=== PATIENT | female | born 1960 | race Caucasian/White ===

== ENCOUNTER → 2024-02-16 11:00 | Outpatient (REF) | payer OTHER, SELFPAY | LOC: WDC 11:00 | PROVIDERS: ATTENDING PHYSICIAN Physician Assistant | DX: Z12.31 Encounter for screening mammogram for malignant neoplasm of breast (principal) | CPT/HCPCS: 77063; 77067 ==

== ENCOUNTER → 2024-03-04 09:45 | Outpatient (REF) | payer OTHER, SELFPAY | LOC: WDC 09:45 | PROVIDERS: ATTENDING PHYSICIAN Physician Assistant | DX: R92.8 Other abnormal and inconclusive findings on diagnostic imaging of breast (principal) | CPT/HCPCS: 76642 ==

== ENCOUNTER → 2024-03-08 08:04 | Outpatient (REF) | payer OTHER, SELFPAY ==
--- NOTE | 2024-03-08 15:03 | OID.BR.INTR ---
MAILED Breast Navigator - Initial
- -
Date of Contact: 03/08/24
Met with patient. Patient given written information on navigator services available at [facility]. Will follow up as needed per protocol.
== END ==
LOC: WDC 08:04
PROVIDERS: ATTENDING PHYSICIAN Physician Assistant
DX: N63.14 Unspecified lump in the right breast, lower inner quadrant (principal)
CPT/HCPCS: 88305; 19083; 88341; 88342; 88360; A4648

== ENCOUNTER → 2024-04-11 08:59 | Outpatient (REF) | payer OTHER, SELFPAY | LOC: WDC 08:59 | PROVIDERS: ATTENDING PHYSICIAN Surgery | DX: C50.411 Malignant neoplasm of upper-outer quadrant of right female breast (principal) | CPT/HCPCS: 19285; 38792; 76942; A4648; A9541 ==

== ENCOUNTER → 2024-04-12 07:51 | Outpatient (REF) | payer OTHER, SELFPAY | LOC: WDC 07:51 | PROVIDERS: ATTENDING PHYSICIAN Surgery | DX: C50.411 Malignant neoplasm of upper-outer quadrant of right female breast (principal) | CPT/HCPCS: 88305; 88307; 88332; 76098; 88331; 88342 ==

== ENCOUNTER → 2024-05-18 07:28 | Outpatient (REF) | payer OTHER, SELFPAY | LOC: REG 07:28 | PROVIDERS: ATTENDING PHYSICIAN Internal Medicine Hematology & Oncology; FAMILY PHYSICIAN Family Medicine | DX: D75.1 Secondary polycythemia (principal); C50.311 Malignant neoplasm of lower-inner quadrant of right female breast; E66.812 Obesity, class 2; Z68.35 Body mass index [BMI] 35.0-35.9, adult | CPT/HCPCS: 71046; 93306 ==

== ENCOUNTER → 2024-05-26 12:04 | Outpatient (REF) | payer OTHER, SELFPAY ==
[2024-05-26 12:36] VITALS: BP 145/78; BP_SYST 78
[2024-05-26 14:09] VITALS: BP 116/72
== END ==
LOC: RADI 12:04
PROVIDERS: ATTENDING PHYSICIAN Internal Medicine Hematology & Oncology; FAMILY PHYSICIAN Family Medicine
DX: C50.311 Malignant neoplasm of lower-inner quadrant of right female breast (principal); D75.1 Secondary polycythemia
CPT/HCPCS: 36561; 76937; 77001; 99152; 99153; C1788

== ENCOUNTER → 2024-06-03 15:44 | Outpatient (REF) | payer OTHER, SELFPAY ==
[2024-06-03 18:10] LABS: Hematocrit 43.9 % (37.0-47.0); Hemoglobin 15.2 g/dL (12.0-16.0); Mean Corp Hgb Conc. 34.6 g/dL (33.0-37.0); Mean Corpuscular Hgb 31.3 pg (27.0-31.0); Mean Corpuscular Volume 90.5 fL (81.0-99.0); Mean Platelet Volume 11.8 fL (7.4-10.4); Platelet Count 152 10^3/uL (130-400); Red Blood Cell Count 4.85 10^6/uL (4.20-5.40); Red Cell Dist. Width 12.1 % (11.5-14.5); White Blood Cell Count 17.7 10^3/uL (4.8-10.8)
[2024-06-03 18:17] LABS: ALT (SGPT) 42 U/L (0-35); AST (SGOT) 26 U/L (14-36); Albumin 3.4 g/dl (3.5-5.0); Alkaline Phosphatase 109 U/L (38-126); Blood Urea Nitrogen 10 mg/dl (7-17); Calcium 9.2 mg/dl (8.4-10.2); Carbon Dioxide 26 mmol/L (22-30); Chloride 99 mmol/L (98-107); Glucose 100 mg/dl (70-99); HDL Cholesterol 39 mg/dl; LDL Cholesterol, Calculated 47 mg/dl; Potassium 3.8 mmol/L (3.5-5.1); Sodium 134 mmol/L (135-145); Total Bilirubin 0.6 mg/dl (0.2-1.3); Total Cholesterol 107 mg/dl (50-199); Total Protein 5.8 g/dl (6.3-8.2); Triglyceride 108 mg/dl (10-149); Very Low Density Lipoprotein 21 mg/dl (0-30); eGFR > 60.00
[2024-06-03 18:35] LABS: Free T4 2.38 ng/dl (0.78-2.19)
[2024-06-03 18:48] LABS: TSH 4.64 uIU/ml (0.47-4.68)
[2024-06-03 18:58] LABS: Absolute Neutrophils -Man Diff 10.2 10^3/uL (1.4-6.5); Atypical Lymphocytes 2 %; Band Neutrophils 6 % (0-3); Lymphocytes 19 % (20-51); Monocytes 21 % (2-9); Normal RBC Morphology Yes; Platelets Checked Yes; Segmented Neutrophils 52 % (42-75); Total Cells Counted 100
[2024-06-04 13:54] LABS: Glycohemoglobin (HgbA1c) 5.9 % (4.0-5.6)
== END ==
LOC: REG 15:44
PROVIDERS: ATTENDING PHYSICIAN Physician Assistant
DX: Z01.419 Encounter for gynecological examination (general) (routine) without abnormal findings (principal); Z91.030 Bee allergy status; E03.8 Other specified hypothyroidism; I34.0 Nonrheumatic mitral (valve) insufficiency; F41.9 Anxiety disorder, unspecified; I10 Essential (primary) hypertension; E66.09 Other obesity due to excess calories; Z68.33 Body mass index [BMI] 33.0-33.9, adult; I47.10 Supraventricular tachycardia, unspecified; E78.00 Pure hypercholesterolemia, unspecified; I47.19 Other supraventricular tachycardia; Z78.0 Asymptomatic menopausal state; R73.9 Hyperglycemia, unspecified
CPT/HCPCS: 36415; 80053; 80061; 83036; 84439; 84443; 85025

== ENCOUNTER → 2024-06-07 16:31 | Outpatient (REF) | payer OTHER, SELFPAY | LOC: RAD 16:31 | PROVIDERS: ATTENDING PHYSICIAN Internal Medicine Hematology & Oncology; FAMILY PHYSICIAN Physician Assistant | DX: D75.1 Secondary polycythemia (principal); C50.311 Malignant neoplasm of lower-inner quadrant of right female breast; E66.812 Obesity, class 2; Z68.35 Body mass index [BMI] 35.0-35.9, adult | CPT/HCPCS: 71046 ==

== ENCOUNTER → 2024-06-15 11:45 | Outpatient (REF) | payer OTHER, SELFPAY ==
[2024-06-15 12:33] LABS: % Basophils 1.5 % (0-2); % Eosinophils 2.5 % (0-6); % Immature Granulocytes 0.8 % (0-0.5); % Lymphocytes 29.1 % (20.5-51.1); % Monocytes 12.4 % (1.7-9.3); % Neutrophils 53.7 % (42.2-75.2); Absolute Basophils 0.1 10^3/uL (0-0.2); Absolute Eosinophils 0.2 10^3/uL (0-0.7); Absolute Immature Granulocytes 0.1 10^3/uL (0-0.05); Absolute Lymphocytes 2.5 10^3/uL (1.2-3.4); Absolute Monocytes 1.1 10^3/uL (0.1-0.6); Absolute Neutrophils 4.7 10^3/uL (1.4-6.5); Hematocrit 40.9 % (37.0-47.0); Hemoglobin 13.8 g/dL (12.0-16.0); Mean Corp Hgb Conc. 33.7 g/dL (33.0-37.0); Mean Corpuscular Hgb 31.7 pg (27.0-31.0); Mean Corpuscular Volume 93.8 fL (81.0-99.0); Mean Platelet Volume 10.4 fL (7.4-10.4); Nucleated Red Blood Cells % 0 %; Platelet Count 326 10^3/uL (130-400); Red Blood Cell Count 4.36 10^6/uL (4.20-5.40); Red Cell Dist. Width 13.2 % (11.5-14.5); White Blood Cell Count 8.7 10^3/uL (4.8-10.8)
[2024-06-15 13:04] LABS: ALT (SGPT) 37 U/L (0-35); AST (SGOT) 26 U/L (14-36); Albumin 3.8 g/dl (3.5-5.0); Alkaline Phosphatase 95 U/L (38-126); Blood Urea Nitrogen 11 mg/dl (7-17); Calcium 9.3 mg/dl (8.4-10.2); Carbon Dioxide 26 mmol/L (22-30); Chloride 106 mmol/L (98-107); Glucose 96 mg/dl (70-99); Potassium 4.6 mmol/L (3.5-5.1); Sodium 140 mmol/L (135-145); Total Bilirubin 0.8 mg/dl (0.2-1.3); Total Protein 6.2 g/dl (6.3-8.2); eGFR > 60.00
== END ==
LOC: REG 11:45
PROVIDERS: ATTENDING PHYSICIAN Internal Medicine Hematology & Oncology
DX: D75.1 Secondary polycythemia (principal); C50.311 Malignant neoplasm of lower-inner quadrant of right female breast; E66.812 Obesity, class 2; Z68.35 Body mass index [BMI] 35.0-35.9, adult; R05.1 Acute cough
CPT/HCPCS: 36415; 80053; 85025

== ENCOUNTER 2024-06-16 05:52 | Outpatient (RCR) | payer OTHER, SELFPAY | END 2024-06-16 23:59 | disposition home or self-care (01) | LOC: RPT 05:52 | PROVIDERS: ATTENDING PHYSICIAN Internal Medicine Hematology & Oncology; FAMILY PHYSICIAN Family Medicine | DX: C50.311 Malignant neoplasm of lower-inner quadrant of right female breast (principal); D75.1 Secondary polycythemia; R53.0 Neoplastic (malignant) related fatigue; M62.81 Muscle weakness (generalized); Z73.6 Limitation of activities due to disability | CPT/HCPCS: 97163; 97530 ==

== ENCOUNTER 2024-07-06 11:11 | Outpatient (RCR) | payer OTHER, SELFPAY | END 2024-07-06 23:59 | disposition home or self-care (01) | LOC: RPT 11:11 | PROVIDERS: ATTENDING PHYSICIAN Internal Medicine Hematology & Oncology; FAMILY PHYSICIAN Family Medicine | DX: C50.311 Malignant neoplasm of lower-inner quadrant of right female breast (principal); D75.1 Secondary polycythemia; R53.0 Neoplastic (malignant) related fatigue; M62.81 Muscle weakness (generalized); Z73.6 Limitation of activities due to disability | CPT/HCPCS: 97112; 97140; 97530 ==

== ENCOUNTER → 2024-07-06 12:20 | Outpatient (REF) | payer OTHER, SELFPAY ==
[2024-07-06 13:38] LABS: % Basophils 0.7 % (0-2); % Eosinophils 0.7 % (0-6); % Immature Granulocytes 1.4 % (0-0.5); % Lymphocytes 38.7 % (20.5-51.1); % Monocytes 12.2 % (1.7-9.3); % Neutrophils 46.3 % (42.2-75.2); Absolute Basophils 0.1 10^3/uL (0-0.2); Absolute Eosinophils 0.1 10^3/uL (0-0.7); Absolute Immature Granulocytes 0.1 10^3/uL (0-0.05); Absolute Lymphocytes 3.4 10^3/uL (1.2-3.4); Absolute Monocytes 1.1 10^3/uL (0.1-0.6); Hematocrit 37.4 % (37.0-47.0); Hemoglobin 12.5 g/dL (12.0-16.0); Mean Corp Hgb Conc. 33.4 g/dL (33.0-37.0); Mean Corpuscular Hgb 32.3 pg (27.0-31.0); Mean Corpuscular Volume 96.6 fL (81.0-99.0); Mean Platelet Volume 10.3 fL (7.4-10.4); Nucleated Red Blood Cells % 0 %; Platelet Count 249 10^3/uL (130-400); Red Blood Cell Count 3.87 10^6/uL (4.20-5.40); Red Cell Dist. Width 14.8 % (11.5-14.5); White Blood Cell Count 8.7 10^3/uL (4.8-10.8)
[2024-07-06 14:06] LABS: ALT (SGPT) 34 U/L (0-35); AST (SGOT) 28 U/L (14-36); Albumin 3.2 g/dl (3.5-5.0); Alkaline Phosphatase 92 U/L (38-126); Blood Urea Nitrogen 7 mg/dl (7-17); Calcium 8.9 mg/dl (8.4-10.2); Carbon Dioxide 28 mmol/L (22-30); Chloride 108 mmol/L (98-107); Glucose 84 mg/dl (70-99); Potassium 4.1 mmol/L (3.5-5.1); Sodium 141 mmol/L (135-145); Total Bilirubin 0.3 mg/dl (0.2-1.3); Total Protein 5.7 g/dl (6.3-8.2); eGFR > 60.00
== END ==
LOC: RAD 12:20
PROVIDERS: ATTENDING PHYSICIAN Internal Medicine Hematology & Oncology; FAMILY PHYSICIAN Family Medicine
DX: D75.1 Secondary polycythemia (principal); C50.511 Malignant neoplasm of lower-outer quadrant of right female breast; E66.812 Obesity, class 2; Z68.35 Body mass index [BMI] 35.0-35.9, adult
CPT/HCPCS: 36415; 80053; 85025

== ENCOUNTER 2024-07-27 10:51 | Outpatient (RCR) | payer OTHER, SELFPAY | END 2024-07-27 23:59 | disposition home or self-care (01) | LOC: RPT 10:51 | PROVIDERS: ATTENDING PHYSICIAN Internal Medicine Hematology & Oncology; FAMILY PHYSICIAN Family Medicine | DX: C50.311 Malignant neoplasm of lower-inner quadrant of right female breast (principal); D75.1 Secondary polycythemia; R53.0 Neoplastic (malignant) related fatigue; M62.81 Muscle weakness (generalized); Z73.6 Limitation of activities due to disability | CPT/HCPCS: 97110; 97530 ==

== ENCOUNTER → 2024-07-27 12:24 | Outpatient (REF) | payer OTHER, SELFPAY ==
[2024-07-27 13:14] LABS: % Basophils 0.8 % (0-2); % Eosinophils 0.4 % (0-6); % Monocytes 11.3 % (1.7-9.3); % Neutrophils 56.5 % (42.2-75.2); Absolute Basophils 0.1 10^3/uL (0-0.2); Absolute Immature Granulocytes 0.1 10^3/uL (0-0.05); Absolute Lymphocytes 2.8 10^3/uL (1.2-3.4); Absolute Monocytes 1.1 10^3/uL (0.1-0.6); Absolute Neutrophils 5.3 10^3/uL (1.4-6.5); Hematocrit 35.2 % (37.0-47.0); Hemoglobin 11.7 g/dL (12.0-16.0); Mean Corp Hgb Conc. 33.2 g/dL (33.0-37.0); Mean Corpuscular Hgb 32.9 pg (27.0-31.0); Mean Corpuscular Volume 98.9 fL (81.0-99.0); Mean Platelet Volume 9.2 fL (7.4-10.4); Nucleated Red Blood Cells % 0 %; Platelet Count 306 10^3/uL (130-400); Red Blood Cell Count 3.56 10^6/uL (4.20-5.40); Red Cell Dist. Width 16.1 % (11.5-14.5); White Blood Cell Count 9.3 10^3/uL (4.8-10.8)
[2024-07-27 14:27] LABS: ALT (SGPT) 23 U/L (0-35); AST (SGOT) 25 U/L (14-36); Albumin 3.2 g/dl (3.5-5.0); Alkaline Phosphatase 90 U/L (38-126); Blood Urea Nitrogen 6 mg/dl (7-17); Calcium 8.8 mg/dl (8.4-10.2); Carbon Dioxide 26 mmol/L (22-30); Chloride 109 mmol/L (98-107); Glucose 96 mg/dl (70-99); Sodium 142 mmol/L (135-145); Total Bilirubin 0.4 mg/dl (0.2-1.3); eGFR > 60.00
== END ==
LOC: REG 12:24
PROVIDERS: ATTENDING PHYSICIAN Internal Medicine Hematology & Oncology; FAMILY PHYSICIAN Family Medicine
DX: D75.1 Secondary polycythemia (principal); C50.311 Malignant neoplasm of lower-inner quadrant of right female breast; Z68.35 Body mass index [BMI] 35.0-35.9, adult
CPT/HCPCS: 36415; 80053; 85025

== ENCOUNTER 2024-08-02 23:02 | Inpatient (IN) | payer OTHER, SELFPAY ==
[2024-08-02] VITALS (13 sets, daily range): BP systolic 95–145; BP diastolic 64–97; BMI 28.3
--- NOTE | 2024-08-02 20:15 | ED.GENMED ---
History of Present Illness
General
Chief Complaint: Weakness
Source: patient, records, spouse and ambulance crew
Exam Limitations: clinical condition
Time Seen by Provider: 08/02/24 20:13
Nursing documentation reviewed up to this point in time: agreed with
History of Present Illness
History of Present Illness:
64-year-old female with past medical history of atrial tachycardia, breast cancer currently on chemotherapy who presents to the emergency department with her for evaluation of change in mental status. Patient received chemotherapy last
week; she follows with [facility]. According to her , for the past few days patient has been more lethargic and has had very poor p.o. intake. Today was very confused and essentially not talking at all. EMS was called to bring
her to the hospital. Per EMS on their arrival she was markedly tachycardic and febrile. Normotensive. She was given IV fluids which improved heart rate slightly. Per she has had mild cough and has been dealing with diarrhea recently
despite her poor p.o. intake.
Past History
Past History
ED Past Medical History: Other (n/a)
Social History
Personal:
Living: with family
Review of Systems
Review of Systems
Unable to obtain full review of systems at this time due to: other (Mental status changes)
All Other Systems: Not applicable
Phy Exam
Physical Exam
Physical Exam:
General: Awake, alert, eyes open, patient was able waved at me but not giving any verbal response and not consistently following commands
Head: Normocephalic, atraumatic
Eyes: Conjunctiva normal, pupils equal round and reactive to light bilaterally
Throat: Airway intact, dry mucous membranes
Neck: Trachea midline, supple without meningismus, no JVD
Lungs: Breath sounds are diminished in lung bases; mild tachypnea, no hypoxia, no respiratory distress
Heart: Tachycardia with irregular rhythm, no murmurs, gallops, or rubs appreciated
Abd: Soft, non distended, no apparent tenderness, no mass appreciated
Neuro: Seems globally confused but no focal deficits noted within the limits of exam�patient not consistently following commands
Skin: no rash noted; skin warm to the touch and somewhat diaphoretic
Extremities: No edema in extremities, equal pulses in all extremities
Scores
Heart Failure Risk
Heart Failure Risk Score: Not Applicable
Heart Score for Chest Pain Patients
STEMI patient?: Not applicable
Withdrawal Assessment of Alcohol
Withdrawal Assessment Completed?: Not applicable
Sepsis
Sepsis Screening
Sepsis Assessment: Sepsis
Sepsis Screen
Sepsis Screen: Sepsis
Date: 08/02/24
Time: 21:38
Course
Orders/Labs/Results
Orders:
Orders
08/02/24 20:13
Acetaminophen 1000MG/100Ml [Ofirmev] 1,000 mg in 100 ml IV ONCE
Acetaminophen IV Indication:: ED Narcotic Naive Pt-ONCE
08/02/24 20:14
CT Head W/o Iv Contrast Urgent
Comment:
Reason For Exam: change in mentation
0.9% Sodium Chloride 1000 ml [Nss] 1,000 ml IV BOLUS
CR Chest Portable - 1 View Urgent
Comment:
Reason For Exam: fever
Reason Study Needs to be Portable: Unable to Transport
08/02/24 20:15
Electrocardiogram (*1) Urgent
Reason for Study: Tachycardia
EKG- Treatment ONCE
08/02/24 20:27
CPK [Creatine Phosphokinase] Urgent
Complete Blood Count/With Diff Urgent
Comprehensive Metabolic Panel Urgent
Lipase Urgent
Magnesium Urgent
Comment: ADD ON
PTT Urgent
Prothrombin Time Urgent
TSH Reflex To Free T4 Urgent
Blood Culture Q30M
CLIFFORD Source: Blood/Venous
Specimen Description:
08/02/24 20:28
Lactate Level [Lactic Acid] Urgent
Urinalysis Reflex To Culture Urgent
Date Specimen was Collected: 08/02/24
Time Specimen was Collected: 20:17
Urine Microscopic Reflex Cult Urgent
Urine Culture Urgent
CLIFFORD Source: U
Specimen Description:
Date Specimen was Collected: 08/02/24
Time Specimen was Collected: 20:17
08/02/24 20:31
Blood Culture Urgent
CLIFFORD Source: Blood/Venous
Specimen Description:
Comment: FROM PORT
08/02/24 20:39
COVID-19 Antigen Urgent
Source: Nasal Swab
Influenza A+B Rapid Molecular Urgent
CLIFFORD Source: Nasal Swab
Specimen Description:
08/02/24 20:50
0.9% Sodium Chloride 1000 ml [Nss] 1,000 ml IV BOLUS
08/02/24 20:51
Add On- LAB Urgent
Tests Added?: Magnesium level
Blood Culture Q30M
CLIFFORD Source: Blood/Venous
Specimen Description:
08/02/24 21:07
Metoprolol [Lopressor] 5 mg IV NOW STA
08/02/24 21:14
Vancomycin [Vancocin] 2,000 mg 0.9% Sodium Chloride 500 ml [Nss] 500 ml IV NOW
08/02/24 21:16
Meropenem [Merrem] 2,000 mg 0.9% Sodium Chloride 100 ml [Nss] 60 ml IV NOW
08/02/24 21:17
Potassium Chloride [KCl] 20 meq 0.9% Sodium Chloride 250 ml [Nss] 250 ml IV NOW
08/02/24 21:27
Amiodarone [Cordarone] 900 mg DEXTROSE 5% PVC-free BAG [D5W PVC-free BAG] 500 ml IV NOW
Initial Dose in mg/min:: 1
Duration of initial dose (hours):: 6
Subsequent dose in mg/min:: 0.5
Duration of subsequent dose (hours):: 18
Maximum dose in mg/min:: 1
Hold and notify provider if:: Heart rate < 60 BPM or SBP < 90 mmHg or MAP < 60 mmHg
08/02/24 21:32
Heparin 4,000 units IV NOW STA
Pharmacy Request to Place See Dose Instructions PO NOW STA
Discontinue all Active Warfarin orders?: Yes
08/02/24 21:34
Amiodarone [Cordarone] 150 mg Dextrose 5%/Water 100 ml [D5w] 100 ml IV NOW
08/02/24 21:35
Magnesium Sulfate 2 Gram/50 ml [Magnesium Sulfate] 2 gram in 50 ml IV NOW
Nursing to Place Non Medication Order As Directed
Physician Order: PTT 6 hours after initial start of Heparin infusion
08/02/24 21:45
Heparin 87611 Units/250 ml 25,000 units in 250 ml IV PER PROTOCOL
Weight to be used for heparin protocol in kilograms (kg):: 77.2
Protocol:: Cardiac Tx/Acute Coronary
PTT Goal Range to be used:: PTT 73 to 111 seconds
Order type:: Initial
INITIAL Infusion Dose (UNITS/KG/hr) & then follow protocol:: 15 units/kg/hr
Infusion Dose in UNITS/hr & then follow protocol (UNITS/hr):: 1,150
INFUSION RATE in mL/hr & then follow protocol (mL/hr):: 11.5
PTT less than or equal to 64 seconds:: Increase rate by 200 units/hr (+ 2 mL/hr)
PTT 64.1 to 72.9 seconds:: Increase rate by 100 units/hr (+ 1 mL/hr)
PTT 73 to 111 seconds:: Target Range. No change in rate.
PTT 111.1 to 130.9 seconds:: Decrease rate by 100 units/hr (- 1 mL/hr)
PTT 131 to 199.9 seconds:: HOLD for 1 hr. Then decrease rate by 200 units/hr (- 2 mL/hr)
PTT greater than or equal to 200 seconds:: HOLD for 2 hrs & Notify Provider. Then decrease by 200 units/hr (-
2 mL/hr)
Lab follow-up:: Each change, PTT q6h until 2 consecutive are therapeutic. Then PTT
daily.
08/02/24 22:[address] See Dose Instructions IV DIRECTED
Abnormal Lab Results
08/02/24 08/02/24
20:27 20:28
WBC 3.8 L 10^3/uL
(4.8-10.8)
RBC 3.64 L 10^6/uL
(4.20-5.40)
Hct 33.9 L %
(37.0-47.0)
MCH 33.0 H pg
(27.0-31.0)
RDW 15.8 H %
(11.5-14.5)
Plt Count 71 L D 10^3/uL
(130-400)
MPV 10.6 H fL
(7.4-10.4)
Abs Immat Gran (auto) 0.5 H 10^3/uL
(0-0.05)
Absolute Lymphs (auto) 0.4 L 10^3/uL
(1.2-3.4)
Immature Gran % 12.3 H %
(0-0.5)
Lymphocytes % 9.4 L %
(20.5-51.1)
Monocytes % 1.6 L %
(1.7-9.3)
PT 15.3 H Sec
(11.4-14.6)
APTT 35.5 H Sec
(23.4-35.0)
Sodium 126 L mmol/L
(135-145)
Potassium 3.2 L mmol/L
(3.5-5.1)
Chloride 96 L mmol/L
(98-107)
Glucose 158 H mg/dl
(70-99)
Lactic Acid 2.1 H mmol/L
(0.7-2.0)
Calcium 7.8 L mg/dl
(8.4-10.2)
Magnesium 1.4 L mg/dl
(1.6-2.3)
Creatine Kinase 144 H U/L
(30-135)
Total Protein 5.7 L g/dl
(6.3-8.2)
Albumin 3.0 L g/dl
(3.5-5.0)
Urine Ketones 3+ A
(Negative)
Ur Occult Blood Reflex 4+ A
(Negative)
Urine RBC 3-6 A /HPF
(0-2)
Urine Bacteria (Reflex) Many A
(Negative)
Urine Albumin (Reflex) 3+ A
(Neg - Trace)
08/02/24 20:27
08/02/24 20:27
Vital Signs
Initial and Last Documented VS:
Initial Vital Signs
Temp Pulse Resp BP Pulse Ox
38.1 C H 166 20 145/97 95
08/02/24 20:11 08/02/24 20:11 08/02/24 20:11 08/02/24 20:11 08/02/24 20:11
Last Documented Vital Signs
Temp Pulse Resp BP Pulse Ox
38.1 C H 136 25 110/89 97
08/02/24 20:11 08/02/24 21:30 08/02/24 21:30 08/02/24 21:30 08/02/24 21:30
MDM/Problems Addressed
Differential Diagnosis Includes:
UTI, pneumonia, viral infection, neutropenic fever, bacteremia
MDM/Problems Addressed:
64-year-old female who is on chemotherapy for breast cancer presents for evaluation of change in mental status�noted to be febrile and markedly tachycardic by EMS. She arrives tachycardic but normotensive; she is febrile. Mildly tachypneic but not
hypoxic. Physical exam as above. Will establish large-bore IV access and labs including CBC and a CMP, coags and lactate and blood cultures, thyroid studies, CPK. Check urinalysis, viral swabs. Will check chest x-ray. Check CT head. Will
provide fluids, Tylenol. Empiric broad-spectrum antibiotics once cultures are drawn. Will need an EKG for tachycardia. Monitor closely and reassess after the above. Anticipate admission.
Initial labs reviewed: CBC shows WBC 3.8; CMP shows hyponatremia suspect hypovolemic based on her exam. Hypokalemia to 3.2 will replete IV. Magnesium 1.4 will replete. Lactate elevated at 2.1. CT head negative for any acute pathology. Chest
x-ray reviewed by me shows bibasilar opacities and patient was noted to be mildly hypoxic requiring supplemental oxygen�at this point suspect pneumonia. She was given broad-spectrum antibiotics and is covered for this. Her urinalysis is still
pending. She does remain tachycardic will reassess after fluids�blood pressures somewhat soft and suspect much of tachycardia is from fever and hypovolemia.
After fluids and Tylenol patient remains markedly tachycardic. Will give Lopressor and reassess.
Patient remains tachycardic despite Lopressor, fluids, antipyretics. Case discussed with cardiology as with soft blood pressure I am hesitant to give additional beta-blockers or calcium channel blockers and with no anticoagulation on board unclear
onset of A-fib I think cardioversion should be considered only if unstable. Discussed potentially starting amiodarone and given normal LFTs cardiology recommended initiation as an adjunct for rate control. At this point will be to the hospital for
continued management of sepsis suspect secondary to pneumonia, acute hypoxic respiratory failure, A-fib with RVR, acute dehydration. Case discussed with hospitalist.
Chronic conditions affecting care:
Breast cancer on chemotherapy
*Radiology
Radiology exam reviewed: preliminary read by ED provider and radiology read reviewed
*Pulse Oximetry
Patient hypoxic: no
*EKG
Interpreted by ED Provider?: Yes
Heart Rate: 172
Rate: tachycardiac
Rhythm: a-fib
[place]: normal axis
Interval: normal interval
QRS Pattern: normal QRS
Ischemia: non-specific ST changes
*Critical Care Note
Total Time (30-74mins, 75-104mins- exclusive of procedures): 39
comment:
Critical care statement: A total of 39 minutes of critical care time was provided for this patient. This includes management of unstable vital signs, evaluation of the patient at bedside, frequent reassessment, discussion with
consultants/hospitalist, and review of pertinent medical records. This time was separate from time utilized to perform any aforementioned documented procedures
Data Reviewed
Review of Other/Old Records Reveals: Labs and Records
Source: patient, spouse and ambulance crew
Patient Management
Discussion with other providers: Hospitalist (Discussed with hospitalist) and Textiles Printer (Discussed with cardiology)
Escalation/DeEscalation of care consider admission/obs:
Admission indicated
ED Attending Note
-
Portions of this chart may have been created with voice recognition software.� Occasional wrong word or��sound alike� substitutions may have occurred due to the inherent limitations of voice recognition software.
Discharge Plan
Departure
Patient Disposition: Admit
Date of Disposition: 08/02/24
Time of Disposition: 21:36
Admit to doctor: Oral
Presentation/result/management discussed w/ accepting MD/DO: Hospitalist
Discharge Problem:
Sepsis, Pneumonia, Acute dehydration, Atrial fibrillation with RVR, Acute hypoxic respiratory failure
Prescriptions:
No Action
lorazepam 0.5 MG tablet
0.5 mg PO PRN PRN (Reason: anxiety)
diltiazem HCl [Cardizem CD] 240 mg Capsule,Extended Release 24hr
240 mg PO DAILY
naproxen 250 mg Tablet
250 mg PO BID PRN (Reason: mild pain)
calcium carbonate 500 mg calcium (1,250 mg) Tablet
500 mg PO DAILY
levothyroxine 50 mcg Tablet
50 mcg PO DAILY
loratadine 10 mg Tablet
10 mg PO DAILY
cyclobenzaprine 5 mg Tablet
5 mg PO HS PRN (Reason: muscles spasm)
cholecalciferol (vitamin D3) [Vitamin D3] 25 mcg (1,000 unit) Tablet
25 mcg PO DAILY
Interventions
Interventions:
*Risk Screen - Suicide Last Done: 08/02/24 20:11
*General Assessment Last Done: 08/02/24 20:11
*Neglect/Abuse Screening Last Done: 08/02/24 20:11
*ED COVID-19 Vaccine History Last Done: 08/02/24 20:11
ED- Cardiac Assessment Last Done: 08/02/24 20:20
ED- Neurological Assessment Last Done: 08/02/24 20:20
ED- Pulmonary Assessment Last Done: 08/02/24 20:20
Discharge Date and Time
Print Language: MACEDONIAN
[2024-08-02] MEDS: NSS 1000 IV ×3 (20:33→22:19)
[2024-08-02] MEDS: OFIRMEV 100 IV (20:33)
[2024-08-02 20:42] LABS: Urine Albumin 3+ (Neg - Trace); Urine Bilirubin Negative (Negative); Urine Character Cloudy (Clear); Urine Color Yellow; Urine Glucose Negative (Negative); Urine Ketone 3+ (Negative); Urine Leukocyte Negative (Negative); Urine Nitrite Negative (Negative); Urine Occult Blood 4+ (Negative); Urine Specific Gravity 1.015 (<1.030); Urine Urobilinogen Negative (Neg - 1+)
[2024-08-02 20:47] LABS: INR 1.18; PT 15.3 Sec (11.4-14.6)
[2024-08-02 20:48] LABS: Lactic Acid 2.1 mmol/L (0.7-2.0)
[2024-08-02 20:48] LABS: APTT 35.5 Sec (23.4-35.0)
[2024-08-02 20:49] LABS: ALT (SGPT) 19 U/L (0-35); AST (SGOT) 31 U/L (14-36); Alkaline Phosphatase 70 U/L (38-126); Blood Urea Nitrogen 13 mg/dl (7-17); Calcium 7.8 mg/dl (8.4-10.2); Carbon Dioxide 23 mmol/L (22-30); Chloride 96 mmol/L (98-107); Creatine Phosphokinase 144 U/L (30-135); Estimated Creatinine Clearance 82 ml/min; Glucose 158 mg/dl (70-99); Lipase 23 U/L (23-300); Potassium 3.2 mmol/L (3.5-5.1); Sodium 126 mmol/L (135-145); Total Bilirubin 1.2 mg/dl (0.2-1.3); Total Protein 5.7 g/dl (6.3-8.2); eGFR > 60.00
[2024-08-02 21:02] LABS: Hematocrit 33.9 % (37.0-47.0); Mean Corp Hgb Conc. 35.4 g/dL (33.0-37.0); Mean Corpuscular Volume 93.1 fL (81.0-99.0); Red Blood Cell Count 3.64 10^6/uL (4.20-5.40); Red Cell Dist. Width 15.8 % (11.5-14.5); White Blood Cell Count 3.8 10^3/uL (4.8-10.8)
[2024-08-02 21:09] LABS: Magnesium 1.4 mg/dl (1.6-2.3)
[2024-08-02] MEDS: LOPRESSOR 5 MG IV (21:15)
[2024-08-02 21:18] LABS: TSH Reflex To Free T4 1.85 uIU/ml (0.47-4.68)
[2024-08-02 21:23] LABS: % Basophils 1.6 % (0-2); % Immature Granulocytes 12.3 % (0-0.5); % Lymphocytes 9.4 % (20.5-51.1); % Monocytes 1.6 % (1.7-9.3); % Neutrophils 75.1 % (42.2-75.2); Absolute Basophils 0.1 10^3/uL (0-0.2); Absolute Immature Granulocytes 0.5 10^3/uL (0-0.05); Absolute Lymphocytes 0.4 10^3/uL (1.2-3.4); Absolute Monocytes 0.1 10^3/uL (0.1-0.6); Absolute Neutrophils 2.9 10^3/uL (1.4-6.5); Mean Platelet Volume 10.6 fL (7.4-10.4); Nucleated Red Blood Cells % 0 %; Platelet Count 71 10^3/uL (130-400)
[2024-08-02] MEDS: VANCOCIN 540 MG IV (21:23)
[2024-08-02 21:26] LABS: COVID-19 Antigen Negative (Negative)
[2024-08-02 21:35] LABS: Urine Bacteria Many (Negative); Urine Granular Cast 0-2 /LPF (0); Urine Hyaline Cast 0-2 /LPF (0-2); Urine Squamous Cell 0-2 /LPF (Few)
[2024-08-02] MEDS: KCL 260 MEQ IV (21:51)
[2024-08-02] MEDS: MAGNESIUM SULFATE 50 IV (21:51)
[2024-08-02] MEDS: MERREM 100 MG IV (22:01)
[2024-08-02] MEDS: CORDARONE 103 MG IV (22:01)
--- NOTE | 2024-08-02 22:07 | HPS.HSE ---
Family Physician
-
Family Physician: * NONE
Chief Complaint
-
Weakness
History of Present Illness
This is a 64-year-old female with past medical history significant for SVT/atrial tachycardia, hypertension, hyperlipidemia, recent diagnosis of breast cancer presenting to the emergency department with acute episode of weakness and reduced
responsiveness and found to be relatively hypotensive, tachycardic and febrile concerning for sepsis of uncertain source.
Patient was diagnosed with home right-sided breast cancer (IDC G3 [id number] ER pos RI neg HER2 neg Ki-67 50-60%), status post double breast conserving lumpectomy with sentinel lymph node dissection for which she is now on adjuvant chemotherapy every
2 weeks. Patient family reports that she is on round 3 and last chemotherapy was on Thursday 4 days ago. After the chemotherapy she also received an injection 1 day ago which is thought to be Neulasta. Family reports that after each round of chemo
and Neulasta the patient developed severe weakness, diarrhea, reduced appetite and low-grade fevers. Her course has been complicated by leukocytosis, hyponatremia, elevated ALT with negative workups.
After receiving the injection on on Thursday the patient developed watery diarrhea. Overnight she had frequent episodes of diarrhea. She has not eaten anything since Thursday morning. Family reported that she was found difficult to arouse this
afternoon at around 3 PM. Spouse came back at 7 PM again tried to arouse and she was difficult to arouse and appeared listless and unresponsive although she keeps eyes open and is able to look around. She was also mumbling and confused. Spouse
felt that the patient was warm. Did not show that she started having a cough the day before. Did notice that she had been incontinent of stool and urine on the bed. EMS was called and patient was brought to the emergency department. She required
2 L of oxygen and does not use oxygen at baseline.
On arrival in the emergency department she was febrile 200.5. She was found to be tachycardic to as high as 170. Blood pressure ranged from 80s systolic to 110s systolic. ECG shows atrial fibrillation with rapid ventricular response in the 140s
and no acute ST-T wave changes. Troponin was negative. Chest x-ray shows possible by basilar opacities which may be atelectasis versus pneumonia.
UA was cloudy but generally negative.
She has mild leukopenia to 3.8 without neutropenia. Hemoglobin was stable at 12 platelet count is down to 71.
She has a sodium of 126, potassium 3.2, bicarb was normal BUN and creatinine were normal. Magnesium was slightly low at 1.4. LFTs were unremarkable. Flu and COVID test were negative.
Medical History
Past Medical History
Past Medical History: Reports Cancer (Right breast cancer status post conservative lumpectomy with sentinel lymph node dissection, IDC G3 [id number] ER pos RI neg HER2 neg Ki-67 50-60% ), HTN, Hypercholesterolemia, Hypothyroidism, Valvular Disease
(Mild mitral regurgitation.) and Other (History of proximal atrial tachycardia without known atrial fibrillation.)
Past Surgical History: Reports Other
Additional Past Surgical History:
Laparoscopic hysterectomy
Cholecystectomy
Left parotid tumor resection
Right localized lumpectomy
Sacrocolpopexy
Social History
Alcohol: None
Drug: None
Personal:
Living: With Family
Family History
Family History: Not pertinent
Allergies / Home Medications
Allergies reflects when Allergies were last updated in [facility] [employer].
Home Medications with original date entered in [facility]
Allergy/Medication List:
Allergies
Allergy/AdvReac Type Severity Reaction Status Date / Time
apricot (Apricot) Allergy Hives Verified 09/01/15 14:39
cefprozil (From Cefzil) Allergy Hives Verified 09/01/15 14:39
Cephalosporins Allergy Unknown Verified 05/24/24 10:58
ciprofloxacin (From Cipro) Allergy Unknown Verified 05/24/24 10:58
dextromethorphan (From Allergy Unknown Verified 05/24/24 10:58
Alden DMT)
Penicillins Allergy Hives Verified 07/09/16 14:39
pyrilamine (From Alden DMT) Allergy Unknown Verified 05/24/24 10:58
scallops Allergy Unknown Verified 05/24/24 11:02
Sulfa (Sulfonamide Allergy Hives Verified 09/01/15 14:39
Antibiotics)
(Sulfa(Sulfonamide
Antibiotics))
sulfamethoxazole (From Allergy Hives Verified 09/01/15 14:39
Bactrim)
trimethoprim (From Bactrim) Allergy Hives Verified 09/01/15 14:39
bees Allergy Hives Uncoded 09/01/15 14:39
blue berries Allergy Hives Uncoded 09/01/15 14:39
Home Medications
lorazepam 0.5 mg tablet 0.5 mg PO PRN PRN anxiety 11/03/11
calcium carbonate 500 mg PO DAILY 05/24/24
cholecalciferol (vitamin D3) 25 mcg (1,000 unit) tablet (Vitamin D3) 25 mcg PO DAILY 05/24/24
cyclobenzaprine 5 mg tablet 5 mg PO HS PRN muscles spasm 05/24/24
diltiazem HCl 240 mg capsule,extended release 24 hr (Cardizem CD) 240 mg PO DAILY 05/24/24
levothyroxine 50 mcg tablet 50 mcg PO DAILY 05/24/24
loratadine 10 mg tablet 10 mg PO DAILY 05/24/24
naproxen 250 mg tablet 250 mg PO BID PRN mild pain 05/24/24
Review of Systems
-
History Source: Family
Constitutional: Reports Fever
EENT: Reports No Symptoms
Respiratory: Reports No Symptoms
Cardiac: Reports No Symptoms
Abdomen/GI: Reports Diarrhea
: Reports Other (Incontinence)
Musculoskeletal: Reports No Symptoms
Skin: Reports No Symptoms
Neurological: Reports Weakness
Endocrine: Reports No Symptoms
Hematologic/Lymphatic: Reports No Symptoms
Psych: Reports No Symptoms
Physical Exam
Vital Signs
Vital Signs
Temp Pulse Resp BP Pulse Ox
100.5 F H 136 25 110/89 97
08/02/24 20:11 08/02/24 21:30 08/02/24 21:30 08/02/24 21:30 08/02/24 21:30
Physical Exam
General: Well Developed, Fever and Poor Appetite
HEENT: NormoCephalic, Anicteric, Moist mucous membranes, PERRLA, [place] Conjunctivae and Oxygen; No Neck Nontender or Neck Mass
Respiratory: Clear
Cardiac: S1/S2, Irregular Rhythm and Tachycardia
Breast: Deferred by me
GI: Soft, Non Tender, Non Distended and Normal Bowel Sounds
Rectal: Deferred by Provider
Genito-urinary: Deferred by me
Musculoskeletal: No Clubbing, No Cyanosis and No Edema
Skin: Warm
Neuro: Alert, Oriented (Oriented to person and place but not to time) and Nonfocal/grossly intact
Hematologic/Lymphatic: Other
Psych: Calm
Laboratory Results
-
08/02/24 20:27
08/02/24 20:27
Laboratory Results
PT 15.3 Sec (11.4-14.6) H 08/02/24 20:27
INR 1.18 08/02/24 20:27
APTT Cancelled 08/02/24 21:35
Lactic Acid 2.1 mmol/L (0.7-2.0) H 08/02/24 20:28
Total Bilirubin 1.2 mg/dl (0.2-1.3) 08/02/24 20:27
AST 31 U/L (14-36) 08/02/24 20:27
ALT 19 U/L (0-35) 08/02/24 20:27
Alkaline Phosphatase 70 U/L (38-126) 08/02/24 20:27
Lipase 23 U/L (23-300) 08/02/24 20:27
Data Reviewed
-
Diagnostic Radiology: Image Personally Visualized and interpreted
CT Scan: Report Reviewed by me
Medical Tests (Nuc Med, Echo, EKG etc): Image Personally Visualized and interpreted
Lab Data: Labs Reviewed by me
Impression/Plan
-
IMPRESSION:
This is 84-year-old with history of breast cancer status post right lumpectomy with sentinel lymph node dissection on chemotherapy will presents emergency department 5 days status post last chemotherapy and 1 day status post likely Neulasta
injection with combination of relative hypotension, fever to 100.5, uncontrolled atrial fibrillation, leukopenia without neutropenia, mild hypoxia with possible bibasilar infiltrates/atelectasis and episode of diarrhea that is not unusual after
chemotherapy. She does meet sepsis criteria with source uncertain but could be pulmonary, bloodstream versus intra-abdominal. She is also likely quite hypovolemic she is hyponatremic and hypokalemic with low magnesium and has reported low p.o.
intake over the last 2 days with diarrhea.
PLAN:
1. Sepsis - Bilateral pna vs blood stream infection vs colitis/enteritis. Fever, tachycardia, leukopenia, immunocompromised.
- admit to IMU
- s/p 30ml/kg crystalloid
- given dehydration will bolus with 1 L N
- continue NS at 100 ml/hr
- infectious w/u including blood cx, urine cx sent.
- viral panel negative
- will get stool cultures, norovirus and cdiff
- mrsa swab, check urinary pneumonia ags
- procalcitonin
- Continue vancomycin and meropenem based on risk factors sepsis and allergies
- ID consultation
2. AFIB RVR - Hx of Atrial tachycardia but no AFIB. No hx of CAD or CHF. On diltiazem at home. Hypothyroidism on levothyroxine. Likely sepsis/hypovolemic.
- boderline bp, holding antihypertensives including the cardizem
- started heparin gtt
- started amio gtt
- checking echo in am
- if BP stable can restart on cardizem
- tsh
- cardiology consult
3. Hyponatremia - Diarrhea, no signs of volume overload. Suspect hypovolemic
- Na and K replacement
- continue NS for now
- repeat sodium in 6 hours, if improving continue fluid resuscitation
- obtain urine osm, na and am cortisol
DVT PPX - on heparin gtt
Code status - Full Code
[2024-08-02] MEDS: HEPARIN 4000 UNITS IV (22:14)
[2024-08-02] MEDS: CORDARONE 518 MG IV (22:28)
[2024-08-02] MEDS: HEPARIN 25000 UNITS/250 ML IV (22:29)
[2024-08-03] VITALS (24 sets, daily range): BP systolic 89–115; BP diastolic 63–80; BMI 28.6
[2024-08-03] MEDS: NSS 1000 IV ×2 (00:24→12:29)
[2024-08-03] MEDS: TYLENOL 650 MG PO ×3 (00:27→22:33)
[2024-08-03 01:23] LABS: Blood Urea Nitrogen 11 mg/dl (7-17); Chloride 107 mmol/L (98-107); Glucose 179 mg/dl (70-99); Magnesium 2.2 mg/dl (1.6-2.3)
[2024-08-03 01:26] LABS: Lactic Acid 1.9 mmol/L (0.7-2.0)
[2024-08-03 01:58] LABS: Carbon Dioxide 18 mmol/L (22-30); Estimated Creatinine Clearance 96 ml/min; Potassium 3.4 mmol/L (3.5-5.1); Sodium 133 mmol/L (135-145); eGFR > 60.00
[2024-08-03] MEDS: KCL 270 MEQ IV ×3 (03:57→20:28)
[2024-08-03 05:41] LABS: APTT 129.8 Sec (23.4-35.0)
[2024-08-03] MEDS: MERREM 100 MG IV (06:15)
[2024-08-03] MEDS: SYNTHROID 50 MCG PO (06:15)
[2024-08-03 06:48] LABS: Hemoglobin 10.3 g/dL (12.0-16.0); Mean Corp Hgb Conc. 35.5 g/dL (33.0-37.0); Mean Corpuscular Hgb 33.4 pg (27.0-31.0); Mean Corpuscular Volume 94.2 fL (81.0-99.0); Mean Platelet Volume 11.8 fL (7.4-10.4); Platelet Count 54 10^3/uL (130-400); Red Blood Cell Count 3.08 10^6/uL (4.20-5.40); Red Cell Dist. Width 15.9 % (11.5-14.5); White Blood Cell Count 2.2 10^3/uL (4.8-10.8)
--- NOTE | 2024-08-03 07:21 | W.PN.HOSP.TC ---
Addendum entered and electronically signed by Anup Luong DO 08/03/24 16:03:
CDI:
-Acute metabolic encephalopathy -- likely 2/2 sepsis and dehydration. seems improved/resolved as of this morning
-Hypovolemic hyponatremia -- improving with IVF
Original Note:
Today's Communication/Plan
-
;/
Assessment / Plan
Assessment / Plan
Assessment/plan
#Sepsis likely secondary to enterocolitis vs catheter associated bloodstream infection from port
-Fever, tachycardia, leukopenia, immunocompromised
-Diarrhea Likely precipitated by recent chemotherapy, Neulasta
-Initiated on vancomycin and meropenem
-ID consulted input appreciated. d/c meropenem
-Recommend discontinue port, culture tip.
-Blood culture prelim Staphylococcus aureus bacteremia x 3 sets
-urine culture, stool studies (C. difficile, GI PCR) pending
-Flu, COVID-negative
-Continue IV fluids
-Echocardiogram ordered, pending
#Acute hypoxic respiratory insufficiency secondary to pneumonia
-Not on home oxygen
-Wean O2 as tolerated
-Antibiotics as above
-Continue to monitor clinically
#Paroxysmal atrial fibrillation with RVR
-EKG on presentation A-fib with RVR
-No history of A-fib, CAD, CHF
-s/p amnio gtt. for rate control
-heparin gtt for anticoagulation
-TSH normal
-Cardiology consulted input appreciated
-Switch to Po Amiodarone.
#Change in mental status
-Likely multifactorial in the setting of sepsis, metabolic derangement, hypovolemia
-CT head-no acute intracranial abnormality noted
-Continue close neuro checks, monitor labs
#Hypovolemic hyponatremia
-Likely secondary to diarrhea and sepsis
-Continue IV fluids
-Monitor BMP
-Check urine studies
#Hypokalemia
-Replete
#Hypocalcemia
-Check ionized calcium
-Corrected for albumin
-Replete
#Hypophosphatemia
-Replete
#History of breast cancer s/p double breast conserving lumpectomy with sentinel lymph node dissection
-On adjuvant chemotherapy Pertuzumab-trastuzumab and taxotere/carboplatin with radiation every 2 weeks
-Follows [facility]
-Consult hematology/oncology, pending eval
#Leukopenia
#Thrombocytopenia
-Likely chemotherapy induced
-Monitor CBC
#Hypothyroidism
-Levothyroxine
DVT prophylaxis heparin GTT
CODE STATUS full code
Anticipated Discharge: > 48 hours
Subjective/Interval History
-
seen and examined at bedside.
Objective Data
-
Labs:
Laboratory Results
08/02/24 08/02/24 08/03/24
20:27 21:35 00:53
WBC 3.8 L
Hgb 12.0
Hct 33.9 L
Plt Count 71 L D
PT 15.3 H
INR 1.18
APTT 35.5 H Cancelled
Sodium 126 L 133 L
Potassium 3.2 L 3.4 L
Chloride 96 L 107
Carbon Dioxide 23 18 L
BUN 13 11
Creatinine 0.7 0.6
Glucose 158 H 179 H
Calcium 7.8 L 7.0 L
Total Bilirubin 1.2
AST 31
ALT 19
Alkaline Phosphatase 70
08/03/24 08/03/24 08/03/24
04:37 06:03 12:20
WBC 2.2 L*
Hgb 10.3 L
Hct 29.0 L
Plt Count 54 L D
PT
INR
APTT 129.8 H Pending
Sodium Pending
Potassium Pending
Chloride Pending
Carbon Dioxide Pending
BUN Pending
Creatinine Pending
Glucose Pending
Calcium Pending
Total Bilirubin
AST
ALT
Alkaline Phosphatase
Vital Signs:
Vital Signs
Temp Pulse Resp BP Pulse Ox
98.7 F 105 25 110/77 97
08/03/24 06:16 08/03/24 06:00 08/03/24 06:00 08/03/24 06:00 08/03/24 05:00
I&O
08/02/24 08/03/24 08/04/24
06:59 06:59 06:59
Output Total 300 / 300
Balance -300 / -300
Review of Systems
-
All other systems: Reviewed and negative (except as documented)
Physical Exam
-
General: No Apparent Distress and Appears Chronically Ill
HEENT: Normocephalic
Respiratory: Clear to Auscultation
Cardiac: Regular Rhythm and S1/S2; Negative Murmur, Rub or Gallop
GI: Soft, Nontender, Nondistended and Normal Bowel Sounds
Rectal: Deferred by Provider
Musculoskeletal: No Clubbing, No Cyanosis and No Edema
Skin: Rash
Neuro: Nonfocal/Grossly Intact
[2024-08-03 07:47] LABS: Albumin 2.5 g/dl (3.5-5.0); Blood Urea Nitrogen 12 mg/dl (7-17); Calcium 6.9 mg/dl (8.4-10.2); Carbon Dioxide 17 mmol/L (22-30); Chloride 107 mmol/L (98-107); Estimated Creatinine Clearance 97 ml/min; Glucose 196 mg/dl (70-99); Phosphorus 1.8 mg/dl (2.5-4.5); Potassium 3.4 mmol/L (3.5-5.1); Sodium 130 mmol/L (135-145); eGFR > 60.00
[2024-08-03 07:51] LABS: Procalcitonin 18.63 ng/ml (0.0-0.25)
--- NOTE | 2024-08-03 08:00 | PHA.VAN.IN ---
Assessment
- Assessment
Renal Function: Appears similar to baseline
Maximum Temperature: 101.1 - 08/03/24 00:03
Concomitant Antimicrobials: meropenem
AUC Dosing Plan
- Dosing Variables
Dosing Weight (kg): 78
Dosing CrCl (ml/min): 97
Vd coefficient (L/kg): 0.7
- Empiric Dosing
Initial / Loading Dose: 2000 mg 08/02 21:23
Maintenance Regimen: 1250 mg q12h - to start Am 08/03
Estimated AUC (mcg*h/mL): 574
Estimated Peak (mcg*h/mL): 35.8
Estimated Trough (mcg/ml): 14.7
Estimated Half Life (H): 8.2
- Monitoring
No levels ordered at this time: consider levels after 1800 dose 08/04 ( 4th maint dose)
Pharmacokinetics Vancomycin I
- -
Patient Age: 64
Patient Sex: Female
Vancomycin Day #: 1
Indication: Bacteremia
Requesting Provider: Oral
Pertinent Antimicrobial Allergies:
Cefzil(hives), cephalosporins, Cipro, Penicillins (hives) , Bactrim (hives)
Height / Weight:
Height 5 ft 5 in
Actual Weight 78 kg
Pertinent Past Medical History: breast Ca on Chemotx (last chemo 4 days ago)
- Vital Signs / Lab Results
Temp Pulse Resp BP Pulse Ox
98.7 F 105 25 110/77 97
08/03/24 06:16 08/03/24 06:00 08/03/24 06:00 08/03/24 06:00 08/03/24 05:00
Lab Results - Hematology
08/02/24 08/03/24
20:27 06:03
WBC 3.8 L 2.2 L*
Lab Results - Chemistry
08/02/24 08/03/24 08/03/24
20:27 00:53 06:03
BUN 13 11 12
Creatinine 0.7 0.6 0.6
Estimated Creat Clear 82 96 97
Albumin 3.0 L 2.5 L
08/02/24 08/03/24 08/03/24
20:28 00:53 04:03
Lactic Acid 2.1 H 1.9 Cancelled
08/03/24 08/03/24
08:03 12:03
Lactic Acid Cancelled Cancelled
Lab Results - Urine
08/02/24
20:28
Urine Nitrite (Reflex) Negative
Leukocyte Esterase Rfl Negative
Urine WBC (Reflex) 6-10
Ur Squamous Epith Cells 0-2
Urine Bacteria (Reflex) Many A
Microbiology Results
08/02/24 20:39 Influenza Types A & B (DAHLIA) - Final
Nasal Swab Negative for Influenza A & B, NAAT
Negative results must be combined with clinical observations
and patient history.
Nucleic Acid Amplification test (NAAT)performed on the
[employer] platform.
[2024-08-03 08:06] LABS: TSH Reflex To Free T4 1.36 uIU/ml (0.47-4.68)
--- NOTE | 2024-08-03 08:30 | VATNOTE ---
Unable to do a full vascular access assessment at this time due to pt needing to use the commode, will return to complete. Pt's family member states that the IV in her L antecubital fossa is pre-hospital (see documentation).
--- NOTE | 2024-08-03 08:52 | CON.CAR ---
Addendum entered and electronically signed by Richmond Esteban MD 08/03/24 12:19:
I saw and examined the patient.
The BUCKLE GLUER's note was reviewed and I agree with the note.
Comment:
64 y/o female (patient of Dr. Doran with plans to see Dr. Kiran for cardio-oncology) with SVT/AT, mild MR, HTN, breast cancer on chemotherapy. She presented to this admission with sepsis and was found to be in A-fib with RVR. She was started on an
amiodarone drip and converted to sinus rhythm. She is currently asymptomatic. She is in normal sinus rhythm with heart rates in the 90s�100s. Blood cultures are positive for Staph aureus. Labs notable for WBC 2.2, hemoglobin 10.3, platelets 54,
procalcitonin elevated at 18.6.
Physical exam notable for regular rate and rhythm, no murmurs, no lower extremity edema, and clear lungs.
Paroxysmal atrial fibrillation with RVR. She is now back in sinus rhythm on IV amiodarone. We will switch amiodarone to p.o. for the duration of her admission to prevent recurrent atrial fibrillation. I do not expect she will need to be on
long-term antiarrhythmic therapy. She is currently on IV heparin for anticoagulation. She has thrombocytopenia with platelet count of 54 this morning. We will check a 4 PM CBC and if platelets are less than 50, we will stop IV heparin.
[id number] 3 (age, female, hypertension). We will discuss long-term anticoagulation plan with her oncologist.
Sepsis due to Staph aureus bacteremia. Continue antibiotics. ID is consulted.
Original Note:
Consultation
Consultation Request
Date/Time Consultation Requested: 08/03/24 0003
Date/Time Consultation Performed: 08/03/24 0852
Requesting Provider: Dr. Mixon
Performing Provider: Angelita KWON for Dr. Esteban
Reason for Consultation: AFIB
Medical History
-
Chief Complaint: weakness, change in MS
History of Present Illness:
64 y/o female (patient of Dr. Doran with plans to see Dr. Kiran for cardio-oncology) with SVT/AT, mild MR, HTN, breast cancer on chemotherapy. She was noted at home to be lethargic, weak, and change MS. She typically feels poorly after chemotherapy
treatments (TCHP, followed by fuphilia per OP onc note), but this was worse. On arrival, she was tachycardic, hypotensive, and with fever and is given fluids, ABX, and admitted for sepsis. Blood cultures prelim positive for gram + cocci. Otherwise,
NA 126 on arrival. She is alert and oriented and in no distress at the time of my assessment. is at bedside. She does not recall the symptoms that brought her in. We are consulted for AFIB with RVR. She was placed on IV amio and IV heparin.
She is now in SR. She did not feel palpitations.
Past Medical History
Past Medical History: Arrhythmias, Cancer, HTN and Valvular Disease
Social History
Tobacco: Non-Smoker
Personal:
Family History
Family History: Reviewed & Not Pertinent
Allergies / Home Medications
Allergy/AdvReac Type Severity Reaction Status Date / Time
apricot (Apricot) Allergy Hives Verified 09/01/15 14:39
cefprozil (From Cefzil) Allergy Hives Verified 09/01/15 14:39
Cephalosporins Allergy Unknown Verified 05/24/24 10:58
ciprofloxacin (From Cipro) Allergy Unknown Verified 05/24/24 10:58
dextromethorphan (From Allergy Unknown Verified 05/24/24 10:[address]
[place] DMT)
Penicillins Allergy Hives Verified 09/01/15 14:39
pyrilamine (From [place] DMT) Allergy Unknown Verified 05/24/24 10:58
scallops Allergy Unknown Verified 05/24/24 11:02
Sulfa (Sulfonamide Allergy Hives Verified 09/01/15 14:39
Antibiotics)
(Sulfa(Sulfonamide
Antibiotics))
sulfamethoxazole (From Allergy Hives Verified 09/01/15 14:39
Bactrim)
trimethoprim (From Bactrim) Allergy Hives Verified 09/01/15 14:39
bees Allergy Hives Uncoded 09/01/15 14:39
blue berries Allergy Hives Uncoded 09/01/15 14:39
�Medication �Instructions �Recorded �Confirmed �Type
lorazepam 0.5 mg tablet 0.5 mg PO PRN PRN anxiety 11/03/11 05/24/24 History
calcium carbonate 500 mg PO DAILY Supplement 05/24/24 05/24/24 History
cholecalciferol (vitamin D3) 25 25 mcg PO DAILY Supplement 05/24/24 05/24/24 History
mcg (1,000 unit) tablet (Vitamin
D3)
cyclobenzaprine 5 mg tablet 5 mg PO HS PRN muscles spasm 05/24/24 05/24/24 History
diltiazem HCl 240 mg 240 mg PO DAILY Heart 05/24/24 05/24/24 History
capsule,extended release 24 hr Disease/Condition
(Cardizem CD)
levothyroxine 50 mcg tablet 50 mcg PO DAILY Thyroid 05/24/24 05/24/24 History
loratadine 10 mg tablet 10 mg PO DAILY Allergies 05/24/24 05/24/24 History
naproxen 250 mg tablet 250 mg PO BID PRN mild pain 05/24/24 05/24/24 History
Review of Systems
-
History Source: Patient and Other (and chart)
Constitutional: Fever and Other (weakness, lethargy, change MS)
Abdomen/GI: Diarrhea
Physical Exam
Vital Signs
Temp Pulse Resp BP Pulse Ox
98.5 F 105 25 110/77 97
08/03/24 07:05 08/03/24 06:00 08/03/24 06:00 08/03/24 06:00 08/03/24 05:00
Lab Results
08/03/24 06:03
08/03/24 06:03
Physical Exam
General: Well Developed, Well Nourished and No Apparent Distress
HEENT: Normocephalic and Anicteric
Respiratory: Other (on O2 by NC, coarse lung sounds)
Cardiac: Regular Rhythm
Skin: Warm and Dry
Neuro: Awake and Alert
Psych: Calm
Impression / Plan
-
Sepsis:
-this diagnosis is threat to life
-4 L IV fluids given
-prelim blood cultures positive for gram + cocci
-getting IV abx
-ID consulted
AFIB with RVR:
-now stable in SR. Continue IV amiodarone for 24 hours- requires intensive monitoring. Then consider plan to transition to PO for temp course- will discuss with Dr. Esteban.
-her [id number] score is 3 for age, female, HTN. She was started on a heparin drip, which requires intensive monitoring. Platelets are on low end in setting of sepsis, so need to monitor closely. Will check blood at 1600. Eventual transition to OAC
once we confirm it is safe.
Breast CA:
-on chemotherapy as noted
-oncology is consulted
HTN:
-BP on low end
-BP meds held for now
pSVT:
-on diltiazem
-rhythm issues as above
Hyponatremia:
-improving
Data Reviewed
-
EKG: Tracing Personally Visualized and interpreted (AFIB with RVR)
Radiology: Report Reviewed by me (Probable infectious/inflammatory pneumonitis.)
CT Scan: Report Reviewed by me (head: No acute intracranial abnormality noted.)
Medical Tests (Nuc Med, Echo etc): Report Reviewed by me (echo 08/03/24: Normal biventricular size and systolic function without regional wall motion abnormality. LVEF 55-60%. No significant valvular disease.)
Labs: Labs Reviewed by me
[2024-08-03] MEDS: CLARITIN 10 MG PO (09:00)
[2024-08-03] MEDS: VANCOCIN 275 MG IV ×2 (10:00→17:32)
[2024-08-03 10:58] LABS: Cortisol, Random 84.5 ug/dl
--- NOTE | 2024-08-03 11:03 | CON.ID ---
Consultation
-
Date/Time Consultation Requested: August 03, 2024 0003
Date/Time Consultation Performed: August 03, 2024 1100
Requesting Provider: Dr. Silvia Mixon
Performing Provider: Dr. Sofy Roy
Reason for Consultation: Sepsis, possible pneumonia, breast cancer on chemo
Chief Complaint / Past History
Chief Complaint
Lethargy and fever
History of Present Illness
64-year-old female with recent diagnosis of right breast cancer status post lumpectomy and currently on adjuvant chemotherapy last received August 01 who presented to the hospital with change in mental status and weakness. Per at bedside
patient started to have decreased mental status on July 31. Yesterday she was very lethargic and weak. She then developed fevers and shaking chills and therefore brought to the hospital yesterday. Temp 101.1. She is pancytopenic but not
neutropenic. Patient noted to be in A-fib. Chest x-ray possible pneumonitis. Blood cultures are now positive for Staph aureus. She is currently on meropenem and vancomycin. Today her mental status has significantly improved. She denies cough
or shortness of breath. She did have diarrhea after chemo but now resolved. No abdominal pain. No nausea or vomiting. No headaches. No urine symptoms. She does have a port.
Past History
Additional Past Medical History:
Right breast cancer status post lumpectomy, on adjuvant chemo
Hypertension
Hypothyroidism
Atrial tachycardia
Anxiety
Left Parotid gland tumor excision 2024
Port placement
Cholecystectomy
Hysterectomy
Finger tumor radical resection 1985
Sacrocolpopexy
Allergy History:
apricot (Apricot) Allergy (Verified 09/01/15 14:39)
Hives
cefprozil (From Cefzil) Allergy (Verified 09/01/15 14:39)
Hives
Cephalosporins Allergy (Verified 05/24/24 10:58)
Unknown
ciprofloxacin (From Cipro) Allergy (Verified 05/24/24 10:58)
Unknown
dextromethorphan (From [place] DMT) Allergy (Verified 05/24/24 10:58)
Unknown
Penicillins Allergy (Verified 09/01/15 14:39)
Hives
pyrilamine (From [place] DMT) Allergy (Verified 05/24/24 10:58)
Unknown
scallops Allergy (Verified 05/24/24 11:02)
Unknown
Sulfa (Sulfonamide Antibiotics) (Sulfa(Sulfonamide Antibiotics)) Allergy (Verified 09/01/15 14:39)
Hives
sulfamethoxazole (From Bactrim) Allergy (Verified 09/01/15 14:39)
Hives
trimethoprim (From Bactrim) Allergy (Verified 09/01/15 14:39)
Hives
bees Allergy (Uncoded 09/01/15 14:39)
Hives
blue berries Allergy (Uncoded 09/01/15 14:39)
Hives
Medications Reviewed: Yes
Current Antibiotics:
Vancomycin
Meropenem
Social History
Tobacco: Former Smoker
Alcohol: Occasional
Drug: None
Personal:
Living: With Family
Review of Systems
Review of Systems
General: Fever, Chills and Change in Appetite
HEENT: Negative Sinus Problems, Headache or Pharyngitis
Cardiovascular: Negative Chest Pain or Dyspnea
Respiratory: Negative Dyspnea or Cough
Gasteroenterology: Negative Nausea, Vomiting or Diarrhea
Genital / Urological: Negative Dysuria or Flank Pain
Endocrine: Weakness
Musculoskeletal: Negative Joint Pain
Neurological: Negative Dizziness
All systems: All other systems were reviewed and were negative
Vital Signs
Temp Pulse Resp BP Pulse Ox
98.5 F 105 25 110/77 97
08/03/24 07:05 08/03/24 06:00 08/03/24 06:00 08/03/24 06:00 08/03/24 05:00
Selected Entries
08/02/24
20:11 08/03/24
00:03
Temp 100.5 F H 101.1 F H
Physical Exam
Physical Exam
Constitutional: Acutely Ill and Chronically Ill
Eyes: No Conjunctival Hemorrhage and Sclera Anicteric
Cardiovascular: Irregular Rate and S1/S2
Pulmonary: Clear
Gastrointestinal: Soft, Non Tender, Non Distended and Normal Bowel Sounds
Genito-Urinary: Negative CVA Tenderness
Extremities: Negative Edema
Neurological: Awake and Oriented
Lines: Port (Right CW PORT no erythema)
Lab / Diagnostic Study Results
Abs Immat Gran (auto) 0.5 10^3/uL (0-0.05) H 08/02/24 20:27
Absolute Neuts (auto) 2.9 10^3/uL (1.4-6.5) 08/02/24 20:27
Absolute Lymphs (auto) 0.4 10^3/uL (1.2-3.4) L 08/02/24 20:27
Absolute Monos (auto) 0.1 10^3/uL (0.1-0.6) 08/02/24 20:27
Absolute Basos (auto) 0.1 10^3/uL (0-0.2) 08/02/24 20:27
Immature Gran % 12.3 % (0-0.5) H 08/02/24 20:27
Neutrophils % 75.1 % (42.2-75.2) 08/02/24 20:27
Lymphocytes % 9.4 % (20.5-51.1) L 08/02/24 20:27
Monocytes % 1.6 % (1.7-9.3) L 08/02/24 20:27
Eosinophils % 0.0 % (0-6) 08/02/24 20:27
Basophils % 1.6 % (0-2) 08/02/24 20:27
PT 15.3 Sec (11.4-14.6) H 08/02/24 20:27
INR 1.18 08/02/24 20:27
Lactic Acid Cancelled 08/03/24 12:03
Procalcitonin 18.63 ng/ml (0.0-0.25) H* 08/03/24 06:03
Ur Squamous Epith Cells 0-2 /LPF (Few) 08/02/24 20:28
Microbiology Results
Micro:
08/02/24 20:31 Blood Culture - Preliminary
Blood/Venous Positive culture in progress
Gram Stain - Final
08/02/24 20:51 Blood Culture - Preliminary
Blood/Venous Positive culture in progress
Gram Stain - Final
08/02/24 20:27 Blood Culture - Preliminary
Blood/Venous Positive culture in progress
Gram Stain - Final
08/02/24 20:28 Urine Culture - Pending
Urine
08/02/24 20:39 Influenza Types A & B (DAHLIA) - Final
Nasal Swab Negative for Influenza A & B, NAAT
Negative results must be combined with clinical observations
and patient history.
Nucleic Acid Amplification test (NAAT)performed on the
[employer] platform.
08/02/24 CXR: Probable infectious/inflammatory pneumonitis.
Assessment / Plan
# Staphylococcus aureus bacteremia x 3 sets
# Suspect catheter associated bloodstream infection from port, present on admission.
# Fever
# R Breast cancer on adjuvant chemotherapy
# Pancytopenia due to chemotherapy
# Multiple antibiotic allergies including penicillin, cephalosporins, sulfa, cipro
- Repeat blood cultures x 2 in a.m.
- Recommend discontinue port, culture tip
-TTE
- Discontinue meropenem
- Continue vancomycin
- Follow temps
[2024-08-03] MEDS: CALCIUM GLUCONATE 100 IV (12:29)
[2024-08-03] MEDS: CARDIZEM CD 120 MG PO (12:32)
[2024-08-03] MEDS: NEUTRA-PHOS POWDER PACKET 250 MG PO ×3 (12:43→21:10)
[2024-08-03 13:52] LABS: APTT 136.2 Sec (23.4-35.0)
--- NOTE | 2024-08-03 14:38 | CON.ONC ---
Impression
Impression
Patient is a 64-year-old female with PMH of A-fib and recently diagnosed right breast cancer s/p lumpectomy, currently on adjuvant chemotherapy (last received on Saturday 07/29) with port in place, who was brought to ED by EMS with altered mental
status, diarrhea, decreased appetite, lethargy and excessive weakness. We have been consulted for evaluation of significant drop in platelets.
Patient is currently alert and oriented. Does not offer any complaints except soreness and redness around site of port
# Thrombocytopenia
Received fourth cycle of chemotherapy with docetaxel (taxotere) and carboplatin + Phesgo on 07/29
Patient only has 2 more cycles to fully complete course of chemotherapy
Given her current sepsis, we recommend removing port
Patient does not require port anymore since the remaining 2 chemotherapy cycles can be given through peripheral IV line and Phesgo is injected subcutaneously
Patient has not experienced thrombocytopenia prior to this-etiology more likely to be related to ongoing infection than chemotherapy
Currently no overt bleeding-transfuse platelets if needed
Monitor CBC
# Acute diarrhea
Currently resolved
Trastuzumab is known to cause diarrhea,especially when combined with pertuzumab
Continue IV fluid therapy
Monitor electrolytes
Management per primary team
#Sepsis
Patient is leukopenic but not neutropenic (ANC [id number])
Continue IV fluid therapy and antibiotic treatment per primary team and ID
Erythema and tenderness noted around site of port-removal of port per ID
Viral panel negative
#AFib
Management per primary team and cardiology
Will continue to follow
Plan
Plan
Removal of port per ID
Sepsis management per primary team
Monitor CBC and electrolytes closely
Will continue to follow
Patient History
History of Present Illness
Patient is a 64-year-old female with PMH of A-fib and recently diagnosed right breast cancer s/p lumpectomy, currently on adjuvant chemotherapy (last received on Saturday 07/29) with port in place, who was brought to ED by EMS with altered mental
status, lethargy and excessive weakness starting Thursday. She developed diarrhea 1 day prior to admission as well as decreased appetite and fever/chills.
In the ED, patient was noted to have a temperature of 100.5. Initial labs showed wbc 3.8, hgb 10.3, plt 71 (dropped from 306 on 07/27) as well as electrolyte abnormalities including hyponatremia, mild hypokalemia, mild hypocalcemia. Procalcitonin
and lactate were highly elevated. CXR showed possible pneumonitis. Blood cultures were obtained and came back positive for Staph aureus. She is currently on meropenem and vancomycin.
Currently at the time of visit she is alert and oriented. Not confused. Denies any cough or shortness of breath. Mentions diarrhea has resolved. Complains of redness and feeling sore around site of port.
Patient Medication
�Medication �Instructions �Recorded �Confirmed �Last Taken �Type
lorazepam 0.5 mg tablet 0.5 mg PO PRN PRN anxiety 11/03/11 05/24/24 Unknown History
calcium carbonate 500 mg PO DAILY Supplement 05/24/24 05/24/24 Unknown History
cholecalciferol (vitamin D3) 25 25 mcg PO DAILY Supplement 05/24/24 05/24/24 Unknown History
mcg (1,000 unit) tablet (Vitamin
D3)
cyclobenzaprine 5 mg tablet 5 mg PO HS PRN muscles spasm 05/24/24 05/24/24 Unknown History
diltiazem HCl 240 mg 240 mg PO DAILY Heart 05/24/24 05/24/24 Unknown History
capsule,extended release 24 hr Disease/Condition
(Cardizem CD)
levothyroxine 50 mcg tablet 50 mcg PO DAILY Thyroid 05/24/24 05/24/24 Unknown History
loratadine 10 mg tablet 10 mg PO DAILY Allergies 05/24/24 05/24/24 Unknown History
naproxen 250 mg tablet 250 mg PO BID PRN mild pain 05/24/24 05/24/24 Unknown History
Active Medications
Generic Name Dose Route Start Last Admin
Trade Name Freq PRN Reason Stop Dose Admin
Acetaminophen 650 mg 08/03/24 00:03 08/03/24 12:32
Acetaminophen 325 Mg Tablet PO 08/31/24 00:02 650 mg
Q4HPRN PRN Administration
WYLIE/mild pain/temp > 100.4 F
Acetaminophen 650 mg 08/03/24 00:03
Acetaminophen 650 Mg Rectal Suppository RECTAL 08/31/24 00:02
Q4HPRN PRN
WYLIE/ mild pain/ temp >/= 100.4F
Amiodarone HCl 200 mg 08/03/24 20:00
Amiodarone 200 Mg Tablet PO 08/31/24 19:59
BID SAM
Diltiazem HCl 240 mg 08/04/24 08:00
Diltiazem 240 Mg Extended Release (24 H) Capsule PO 09/01/24 07:59
DAILY SAM
Heparin Sodium 25,000 units in 250 mls @ 0 mls/hr 08/02/24 21:45 08/02/24 22:29
Heparin 14084 Units/250 Ml IV 250 mls
PER PROTOCOL SAM Administration
Protocol
Per Protocol
Sodium Chloride 1,000 mls @ 100 mls/hr 08/03/24 00:03 08/03/24 12:29
Nss IV 1,000 mls
.Q10H SAM Administration
Vancomycin HCl 1,250 mg/ 275 mls @ 183.33 mls/hr 08/03/24 09:00 08/03/24 10:00
Sodium Chloride IV 275 mls
BID@0600,1800 SAM Administration
Protocol
Amiodarone HCl 900 mg/ 518 mls @ 0 mls/hr 08/03/24 12:00
Dextrose/Water IV 08/03/24 19:59
PER PROTOCOL SAM
Protocol
Per Protocol
Levothyroxine Sodium 50 mcg 08/03/24 06:00 08/03/24 06:15
Levothyroxine 50 Mcg Tablet PO 08/31/24 05:59 50 mcg
DAILY @ 0600 SAM Administration
Loratadine 10 mg 08/03/24 08:00 08/03/24 09:00
Loratadine 10 Mg Tablet PO 08/31/24 07:59 10 mg
DAILY SAM Administration
Lorazepam 0.5 mg 08/03/24 00:03
Lorazepam 0.5 Mg Tablet PO 08/31/24 00:02
DAILYPRN PRN
anxiety
Ondansetron HCl 4 mg 08/03/24 00:03
Ondansetron 4 Mg/2 Ml Vial IV 08/31/24 00:02
Q6HPRN PRN
NAUSEA/VOMITING
Potassium Phosphate 250 mg 08/03/24 13:00 08/03/24 12:43
Neutra-Phos Powder Concentrate (250 Mg) Packet PO 08/04/24 09:01 250 mg
[facility] SAM Administration
Sodium Chloride 0 flush 08/02/24 23:00
Sodium Chloride 0.9% (Flush) Syringe IV 08/30/24 22:59
PER PROTOCOL SAM
Review of Systems
-
History Source: Patient
All Other Systems: Reviewed and Negative
Constitutional: Reports Weakness
Physical Exam
-
General: Well Developed and No Apparent Distress
Cardiology: S1 and S2
Pulmonary: Clear
GI: Soft and Normal Bowel Sounds
Genito-Urinary: No Costovertebral Tenderness
Musculoskeletal: No Clubbing, No Cyanosis and No Edema
Extremities: Pulses Present
Skin: Warm and Dry
Psych: Calm
Labs
Lab Results
WBC 2.2 10^3/uL (4.8-10.8) L* 08/03/24 06:03
RBC 3.08 10^6/uL (4.20-5.40) L 08/03/24 06:03
Hgb 10.3 g/dL (12.0-16.0) L 08/03/24 06:03
Hct 29.0 % (37.0-47.0) L 08/03/24 06:03
MCV 94.2 fL (81.0-99.0) 08/03/24 06:03
MCH 33.4 pg (27.0-31.0) H 08/03/24 06:03
MCHC 35.5 g/dL (33.0-37.0) 08/03/24 06:03
RDW 15.9 % (11.5-14.5) H 08/03/24 06:03
Plt Count 54 10^3/uL (130-400) L D 08/03/24 06:03
MPV 11.8 fL (7.4-10.4) H 08/03/24 06:03
Abs Immat Gran (auto) 0.5 10^3/uL (0-0.05) H 08/02/24 20:27
Absolute Neuts (auto) 2.9 10^3/uL (1.4-6.5) 08/02/24 20:27
Absolute Lymphs (auto) 0.4 10^3/uL (1.2-3.4) L 08/02/24 20:27
Absolute Monos (auto) 0.1 10^3/uL (0.1-0.6) 08/02/24 20:27
Absolute Eos (auto) 0.0 10^3/uL (0-0.7) 08/02/24 20:27
Absolute Basos (auto) 0.1 10^3/uL (0-0.2) 08/02/24 20:27
Immature Gran % 12.3 % (0-0.5) H 08/02/24 20:27
Neutrophils % 75.1 % (42.2-75.2) 08/02/24 20:27
Lymphocytes % 9.4 % (20.5-51.1) L 08/02/24 20:27
Monocytes % 1.6 % (1.7-9.3) L 08/02/24 20:27
Eosinophils % 0.0 % (0-6) 08/02/24 20:27
Basophils % 1.6 % (0-2) 08/02/24 20:27
Creatinine 0.6 mg/dL (0.6-1.0) 08/03/24 06:03
Vital Signs
Vital Signs
Temp Pulse Resp BP Pulse Ox
98.5 F 105 25 110/77 97
08/03/24 07:05 08/03/24 06:00 08/03/24 06:00 08/03/24 06:00 08/03/24 05:00
--- NOTE | 2024-08-03 15:03 | PN.CDI ---
CDI
- -
CDI:
Physician Documentation Request
Admit Date: 08/02/24 23:02
Dear Doctor Angela,
Clinical Indicators:
Patient admitted with sepsis.
Sodium level on admission: 126
08/02 H & P, 'Spouse came back at 7 PM again tried to arouse and she was difficult to arouse and appeared listless and unresponsive although she keeps eyes open and is able to look around. She was also mumbling and confused.'
08/03 PN, 'Change in mental status -Likely multifactorial in the setting of sepsis, metabolic derangement, hypovolemia'
08/03 ID consult, 'Today her mental status has significantly improved.'
Based on the above, could you clarify which, if any of the following, is the most likely etiology of the confusion/altered mental status.
Acute Metabolic Encephalopathy
Other encephalopathy, please specify
Other, please specify
Use of terms such as suspected, likely, concern for, or probable (associated with a specific diagnosis that is being evaluated, monitored, or treated as if it exists) are acceptable and can be coded in the inpatient setting, when documented at the
time of discharge.
Thank you,
LICO Sapp RN
CDI Specialist
available via tiger text
Please use your independent medical judgment in providing your response.
--- NOTE | 2024-08-03 16:03 | CM ---
Patient with Hx right breast cancer s/p lumpectomy on chemo with Dx bacteremia, Suspect catheter associated bloodstream infection from port, Pancytopenia. Receiving IV Amiodarone, Heparin gtt, IV Abx. PT Mitchell pending.
Met with patient, Eliud and daughter Nataliia;
the patient resides with her in a 2 story house with 5 steps at entrance.
The patient was independent in ADLs and ambulation until Sun 07/31.
She was assisted with ADLs for the past 3 days, ambulating minimally without assistive device.
DME - [facility]
No prior VN or SNF
PCP - Colton Rodriguez
Pharmacy - [facility]
Plan follow up after seen by PT.
[2024-08-03 18:05] LABS: Hematocrit 27.5 % (37.0-47.0); Hemoglobin 9.7 g/dL (12.0-16.0); Mean Corp Hgb Conc. 35.3 g/dL (33.0-37.0); Mean Corpuscular Volume 93.5 fL (81.0-99.0); Mean Platelet Volume 12.2 fL (7.4-10.4); Platelet Count 44 10^3/uL (130-400); Red Blood Cell Count 2.94 10^6/uL (4.20-5.40); Red Cell Dist. Width 16.5 % (11.5-14.5); White Blood Cell Count 1.5 10^3/uL (4.8-10.8)
[2024-08-03 18:28] LABS: Blood Urea Nitrogen 11 mg/dl (7-17); Carbon Dioxide 17 mmol/L (22-30); Chloride 109 mmol/L (98-107); Estimated Creatinine Clearance 83 ml/min; Glucose 140 mg/dl (70-99); Potassium 3.2 mmol/L (3.5-5.1); Sodium 131 mmol/L (135-145); eGFR > 60.00
--- NOTE | 2024-08-03 18:41 | PTCARENOTE ---
day shift note. see nursing flowsheet. pt drowsy at times. tmax 101.8 Tylenol given. amiodarone drip completed. heparin infusing per protocol. sinus/sinus tachy on monitor. sbp 90s to 110s. pt very weak. assisted to bedside commode x 2 and voided
along with loose bm. at bedside all day. appetite is poor. iv fluids infusing. kriders , Calcium gluconate given per order. repeat potassium 3.2. resident physician notified and will write further orders
[2024-08-03] MEDS: PACERONE 200 MG PO (20:29)
[2024-08-03] MEDS: HEPARIN 25000 UNITS/250 ML IV (20:35)
--- NOTE | 2024-08-03 21:45 | W.PN.UPDATE ---
Addendum entered and electronically signed by DOYLE Hernandes 08/04/24 06:12:
Patient had multiple episodes of diarrhea, bp down to 83/ 59 map 67, hr 82, asymptomatic. Will give 500cc of NSS. C-diff, stool study result is pending.
Hypokalemic this am with K level 3.2 repleted as needed.
Original Note:
Update Note
Progress Note Update
Patient had an episode of coffee ground emesis. Vital signs within baseline. Abdomen soft non tender and non distended.
Heparin drip placed on hold, will monitor h&h q 6 hrs, PPI IV daily, and gi consult placed
[2024-08-03] MEDS: ZOFRAN 4 MG IV (21:50)
[2024-08-03] MEDS: PROTONIX IV 40 MG IV (21:50)
[2024-08-03] MEDS: NSS (PRESERVATIVE FREE) 10 ML IV (21:50)
[2024-08-03] MEDS: ATIVAN 0.5 MG PO (21:57)
[2024-08-03 22:06] LABS: Hematocrit 26.6 % (37.0-47.0); Hemoglobin 9.4 g/dL (12.0-16.0); Osmolality Urine 543 mOsm/kg (300-900)
[2024-08-03 22:11] LABS: Urine Albumin 3+ (Neg - Trace); Urine Bilirubin Negative (Negative); Urine Character Slightly Cloudy (Clear); Urine Color Yellow; Urine Glucose 2+ (Negative); Urine Ketone Negative (Negative); Urine Leukocyte 1+ (Negative); Urine Nitrite Positive (Negative); Urine Occult Blood 4+ (Negative); Urine Specific Gravity 1.015 (<1.030); Urine Urobilinogen Negative (Neg - 1+); Urine pH 6.5 (5.0-9.0)
[2024-08-03 22:19] LABS: APTT 70.2 Sec (23.4-35.0)
[2024-08-03 22:23] LABS: Urine Squamous Cell 0-2 /LPF (Few)
[2024-08-03 22:25] LABS: Urine Bacteria Many (Negative); Urine Red Blood Cell 30-40 /HPF (0-2); Urine White Cell 26-30 /HPF (0-5)
[2024-08-03 22:26] LABS: Urine Amorphous Seen
[2024-08-03 22:51] LABS: Urine Sodium 33 mmol/L (30-90)
--- NOTE | 2024-08-03 23:14 | PTCARENOTE ---
assumed care of patient. pt is AAOx3, flat affect. able to make needs known. pt has been inc of stool a few times tonight, full bed bath given x2. after first bed bath, pt vomited a small amount of coffee ground emesis. pt denies any nausea or
abdominal pain. abdomen soft, non-tender. notified Myles KWON- heparin gtt placed on hold. GI consult placed. IV protonix given. H/H q6 ordered. result- .06/18.6. IV zofran given. pt will low grade fever, PO tylenol given. and son at
bedside, updated on plan of care. able to take pills whole with water without issues. admits to a poor appetite. urine and stool specimen collected and sent down. on RA 96%. BP soft at times but stable. PW taken out d/t patient being incontinent of
stool. q2t. pt very stiff in bed. unable to move much in bed without help. pt denies any pain but states she is very stiff when she is moved and at times moans like she is in pain, but again denies any pain.
[2024-08-04] VITALS (29 sets, daily range): BP systolic 82–126; BP diastolic 51–90; PULSE 93–99; O2SAT 96–97; BMI 29.7
--- NOTE | 2024-08-04 00:12 | W.PN.UPDATE ---
Update Note
Progress Note Update
Patient had multiple episodes of diarrhea, bp down to 83/ 59 map 67, hr 82, asymptomatic. Will give 500cc of NSS. C-diff, stool study result is pending.
Hypokalemic this am with K level 3.2 repleted as needed.
[2024-08-04] MEDS: NSS 1000 IV ×2 (00:29→14:03)
[2024-08-04] MEDS: NSS 500 IV (00:29)
--- NOTE | 2024-08-04 00:35 | PTCARENOTE ---
pt with low BP- 82/62 MAP 70- pt sleeping at present. 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 oxygen also dropping while sleeping to 86% RA, 2L NC applied, oxygen now 95%. sleeping at bedside.
[2024-08-04 04:52] LABS: Hematocrit 25.3 % (37.0-47.0); Mean Corp Hgb Conc. 35.6 g/dL (33.0-37.0); Mean Corpuscular Hgb 33.1 pg (27.0-31.0); Mean Platelet Volume 11.5 fL (7.4-10.4); Platelet Count 39 10^3/uL (130-400); Red Blood Cell Count 2.72 10^6/uL (4.20-5.40); Red Cell Dist. Width 16.8 % (11.5-14.5); White Blood Cell Count 1.1 10^3/uL (4.8-10.8)
[2024-08-04 04:58] LABS: Blood Urea Nitrogen 11 mg/dl (7-17); Carbon Dioxide 20 mmol/L (22-30); Chloride 112 mmol/L (98-107); Estimated Creatinine Clearance 84 ml/min; Glucose 120 mg/dl (70-99); Potassium 3.2 mmol/L (3.5-5.1); Sodium 133 mmol/L (135-145); eGFR > 60.00
[2024-08-04] MEDS: VANCOCIN 275 MG IV ×2 (05:04→17:59)
[2024-08-04] MEDS: SYNTHROID PO (05:06)
[2024-08-04 06:19] LABS: Band Neutrophils 0 % (0-3); Segmented Neutrophils 58 % (42-75)
[2024-08-04 06:20] LABS: Absolute Neutrophils -Man Diff 0.6 10^3/uL (1.4-6.5); Lymphocytes 36 % (20-51); Monocytes 6 % (2-9); Normal RBC Morphology Yes; Platelets Checked Yes
[2024-08-04 06:21] LABS: Total Cells Counted 100
--- NOTE | 2024-08-04 06:30 | PTCARENOTE ---
critical labs this AM- WBC 1.1, absolute neutrophils- 0.4. K low this AM 3.2. 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 care ongoing.
--- NOTE | 2024-08-04 06:35 | CON.GI ---
Consultation
-
Date/Time Consultation Performed: 08/04/24
Performing Provider: Fly De La Cruz MD
Reason for Consultation: coffee ground emesis
Medical History
Chief Complaint / HPI
Chief Complaint: weakness
History of Present Illness:
The patient is a 64-year-old female with past medical history as noted who presents with weakness. She has a history of breast cancer currently undergoing adjuvant chemotherapy, and presents with weakness, lethargy and some confusion. She was
having some diarrhea, and found on admission to have pancytopenia. She had an episode of vomiting last night around 9 PM with some coffee-ground material. Since then she has been doing well with no further vomiting, or diarrhea. She has not had
any melena. She usually has no significant GI symptoms and denies any usual dysphagia, odynophagia or heartburn. This hospitalization she was found to be in A-fib and was on heparin, now stopped. She did have a fever yesterday to 1-1.8, overnight
her Tmax was 100. She denies any abdominal pain. She denies any extraneous NSAIDs recently.
Past Medical History
Past Medical History: Other (Right breast cancer status post lumpectomy, on adjuvant chemo Hypertension Hypothyroidism Atrial tachycardia Anxiety, MR, HTN, afib)
Past Surgical History: Other (Left Parotid gland tumor excision 2024 Port placement Cholecystectomy Hysterectomy Finger tumor radical resection 1985 Sacrocolpopexy)
Social History
Tobacco: Non-Smoker
Alcohol: None
Family History
Family History: Reviewed & Not Pertinent
Allergies / Home Medications
Allergy/AdvReac Type Severity Reaction Status Date / Time
apricot (Apricot) Allergy Hives Verified 09/01/15 14:39
blueberry Allergy Hives Verified 08/03/24 21:44
cefprozil (From Cefzil) Allergy Hives Verified 09/01/15 14:39
Cephalosporins Allergy Unknown Verified 05/24/24 10:58
ciprofloxacin (From Cipro) Allergy Unknown Verified 05/24/24 10:58
dextromethorphan (From Allergy Unknown Verified 05/24/24 10:58
Means DMT)
Penicillins Allergy Hives Verified 09/01/15 14:39
pyrilamine (From Means DMT) Allergy Unknown Verified 05/24/24 10:58
scallops Allergy Unknown Verified 05/24/24 11:02
Sulfa (Sulfonamide Allergy Hives Verified 09/01/15 14:39
Antibiotics)
(Sulfa(Sulfonamide
Antibiotics))
sulfamethoxazole (From Allergy Hives Verified 09/01/15 14:39
Bactrim)
trimethoprim (From Bactrim) Allergy Hives Verified 09/01/15 14:39
venom-honey bee Allergy Hives Verified 08/03/24 21:44
�Medication �Instructions �Recorded
lorazepam 0.5 mg tablet 0.5 mg PO PRN PRN anxiety 11/03/11
calcium carbonate 500 mg PO DAILY Supplement 05/24/24
cholecalciferol (vitamin D3) 25 25 mcg PO DAILY Supplement 05/24/24
mcg (1,000 unit) tablet (Vitamin
D3)
cyclobenzaprine 5 mg tablet 5 mg PO HS PRN muscles spasm 05/24/24
diltiazem HCl 240 mg 240 mg PO DAILY Heart 05/24/24
capsule,extended release 24 hr Disease/Condition
(Cardizem CD)
levothyroxine 50 mcg tablet 50 mcg PO DAILY Thyroid 05/24/24
loratadine 10 mg tablet 10 mg PO DAILY Allergies 05/24/24
naproxen 250 mg tablet 250 mg PO BID PRN mild pain 05/24/24
Review of Systems
-
All other systems: A 12 pt ROS was Negative except as stated above in HPI
Vital Signs
Temp Pulse Resp BP Pulse Ox
97.9 F 92 20 109/84 97
08/04/24 02:28 08/04/24 06:00 08/04/24 06:00 08/04/24 06:00 08/04/24 06:00
Physical Exam
Exam
General: NAD
HEENT: MMM, anicteric, no lymphadenopathy
Heart: Regular, no murmurs
Lungs: CTA bilaterally
Abdomen: normal bowel sounds, soft, no tenderness, no rebound or guarding, no masses, bruits or ascites
Extremeties: no edema
Skin: no rashes
Results
WBC 1.1 10^3/uL (4.8-10.8) L* 08/04/24 04:17
Hgb 9.0 g/dL (12.0-16.0) L 08/04/24 04:17
Hgb Cancelled 08/04/24 04:17
Hct 25.3 % (37.0-47.0) L 08/04/24 04:17
Hct Cancelled 08/04/24 04:17
MCV 93.0 fL (81.0-99.0) 08/04/24 04:17
Plt Count 39 10^3/uL (130-400) L 08/04/24 04:17
Absolute Neuts (auto) 2.9 10^3/uL (1.4-6.5) 08/02/24 20:27
PT 15.3 Sec (11.4-14.6) H 08/02/24 20:27
INR 1.18 08/02/24 20:27
APTT 70.2 Sec (23.4-35.0) H 08/03/24 21:45
Sodium 133 mmol/L (135-145) L 08/04/24 04:17
Potassium 3.2 mmol/L (3.5-5.1) L 08/04/24 04:17
Chloride 112 mmol/L (98-107) H 08/04/24 04:17
Carbon Dioxide 20 mmol/L (22-30) L 08/04/24 04:17
BUN 11 mg/dl (7-17) 08/04/24 04:17
Creatinine 0.7 mg/dL (0.6-1.0) 08/04/24 04:17
Calcium 7.0 mg/dl (8.4-10.2) L 08/04/24 04:17
Total Bilirubin 1.2 mg/dl (0.2-1.3) 08/02/24 20:27
AST 31 U/L (14-36) 08/02/24 20:27
ALT 19 U/L (0-35) 08/02/24 20:27
Alkaline Phosphatase 70 U/L (38-126) 08/02/24 20:27
Lipase 23 U/L (23-300) 08/02/24 20:27
Diagnostic Image Results:
Prior GI Procedures:
EGD:
Colonoscopy:
09/2022:
Findings:
The perianal and digital rectal examinations were normal.
A scattered area of mucosa in the terminal ileum was nodular. Biopsies
were taken with a cold forceps for histology.
A 2 mm polyp was found in the cecum. The polyp was sessile. The polyp
was removed with a cold biopsy forceps. Resection and retrieval were
complete.
A 4 mm polyp was found in the recto-sigmoid colon. The polyp was
sessile. The polyp was removed with a cold snare. Resection and
retrieval were complete.
A few small-mouthed diverticula were found in the sigmoid colon.
Internal hemorrhoids were found during retroflexion.
Assessment / Plan
-
1. Coffee-ground emesis: With underlying nausea, vomiting and diarrhea likely chemotherapy related, in the setting of pancytopenia and while on heparin for A-fib. Currently there are no signs of brisk active bleeding, no melena, no further
vomiting. Her platelets continue to decline. Heparin has been held, now back in sinus rhythm. Most likely etiology would be Priya-Mccloud tear versus gastritis, other etiologies including peptic ulcer disease seem less likely, and again currently
no signs of significant active bleeding. At this point would continue supportive care, agree with holding heparin, continue PPI which has been started and continued monitoring. Would hold on endoscopic evaluation unless signs of brisk active
bleeding. If signs of brisk active bleeding then would transfuse platelets as now less than 50. Oncology also following closely.
-
-
Thank you for consultation and allowing me to participate in the patient's care. Please call the cardiac surgeon GI physician during the after hours with any questions or concerns.
[2024-08-04] MEDS: VISBIOME 1 CAP PO (06:40)
[2024-08-04] MEDS: KCL 270 MEQ IV ×2 (06:40→20:14)
[2024-08-04] MEDS: SYNTHROID 50 MCG PO (06:40)
--- NOTE | 2024-08-04 07:04 | W.PN.HOSP.TC ---
Today's Communication/Plan
-
;/
Assessment / Plan
Assessment / Plan
Assessment/plan
#Sepsis likely secondary to enterocolitis vs catheter associated bloodstream infection from port
-Fever, tachycardia, leukopenia, immunocompromised
-Diarrhea Likely precipitated by recent chemotherapy, Neulasta
-Continue vancomycin
-ID following
-Plan to discontinue port, culture tip today
-Blood culture prelim Staphylococcus aureus bacteremia x 3 sets
-urine culture, stool studies (C. difficile, GI PCR) pending
-Continue IV fluids
-Echocardiogram 08/03- Normal biventricular size and systolic function without regional wall motion abnormality. LVEF 55-60%. No significant valvular disease.
#Coffee-ground emesis likely chemotherapy related
-GI consulted, input appreciated
-Etiology likely Priya-Mccloud versus gastritis versus peptic ulcer
-Continue supportive care
-Hold heparin
-Continue PPI
-Monitor CBC closely
#Paroxysmal atrial fibrillation with RVR
-EKG on presentation A-fib with RVR
-No history of A-fib, CAD, CHF
-s/p amnio gtt. for rate control
-heparin gtt for anticoagulation(on hold)
-TSH normal
-Cardiology following
-Switch to Po Amiodarone, continue home diltiazem.
#Acute metabolic encephalopathy likely secondary to sepsis versus dehydration versus UTI
-Likely multifactorial in the setting of sepsis, metabolic derangement, hypovolemia
-CT head-no acute intracranial abnormality noted
-Mentation back to baseline
#Hypovolemic hyponatremia
-Likely secondary to diarrhea and sepsis
-Improving with IV fluids
#Hypokalemia
-Replete
#Hypocalcemia
-Replete
#Hypophosphatemia
-Replete
#History of breast cancer s/p double breast conserving lumpectomy with sentinel lymph node dissection
-On adjuvant chemotherapy Pertuzumab-trastuzumab and taxotere/carboplatin with radiation every 2 weeks
-Follows [facility]
-Oncology following
-Received fourth cycle of chemotherapy with TCHP on 07/29
-Agreeable to remove Port
#Pancytopenia
-Likely chemotherapy induced
-Monitor CBC
#Hypothyroidism
-Levothyroxine
DVT prophylaxis heparin GTT(On hold)
CODE STATUS full code
Anticipated Discharge: > 48 hours
Subjective/Interval History
-
Patient seen and examined at bedside. Comfortable. Not in any significant distress.
Objective Data
-
Labs:
Laboratory Results
08/03/24 08/04/24 08/04/24
21:45 04:17 04:17
WBC 1.1 L*
Hgb 9.4 L 9.0 L Cancelled
Hct 26.6 L 25.3 L
Plt Count
APTT 70.2 H
Sodium
Potassium
Chloride
Carbon Dioxide
BUN
Creatinine
Glucose
Calcium
08/04/24 08/04/24 08/04/24
04:17 09:45 15:45
WBC
Hgb Pending Pending
Hct Cancelled Pending Pending
Plt Count 39 L
APTT
Sodium 133 L
Potassium 3.2 L
Chloride 112 H
Carbon Dioxide 20 L
BUN 11
Creatinine 0.7
Glucose 120 H
Calcium 7.0 L
Vital Signs:
Vital Signs
Temp Pulse Resp BP Pulse Ox
97.9 F 92 20 109/84 97
08/04/24 02:28 08/04/24 06:00 08/04/24 06:00 08/04/24 06:00 08/04/24 06:00
I&O
08/03/24 08/04/24 08/05/24
06:59 06:59 06:59
Intake Total 1944 / 1944
Output Total 300 / 300
Balance 1644 / 1644
Review of Systems
-
All other systems: Reviewed and negative (except as documented)
Physical Exam
-
General: No Apparent Distress and Appears Chronically Ill
HEENT: Normocephalic
Respiratory: Clear to Auscultation
Cardiac: Regular Rhythm and S1/S2; Negative Murmur, Rub or Gallop
GI: Soft, Nontender, Nondistended and Normal Bowel Sounds
Rectal: Deferred by Provider
Musculoskeletal: No Clubbing, No Cyanosis and No Edema
Neuro: Nonfocal/Grossly Intact
[2024-08-04] MEDS: CLARITIN 10 MG PO (07:54)
[2024-08-04] MEDS: PACERONE 200 MG PO ×2 (07:54→19:32)
[2024-08-04] MEDS: CARDIZEM CD 240 MG PO (07:54)
[2024-08-04] MEDS: PROTONIX IV 40 MG IV (07:55)
[2024-08-04] MEDS: NSS (PRESERVATIVE FREE) 10 ML IV (07:55)
[2024-08-04] MEDS: NEUTRA-PHOS POWDER PACKET 250 MG PO (08:01)
--- NOTE | 2024-08-04 08:36 | PHA.VAN.FU ---
Vancomycin Assessment / Plan
- Assessment
Renal Function: Stable
WBC's are: Trending Down
In the past 24 hrs, patient has been: Febrile (101.8 - 08/03/24 11:05)
Concomitant Antimicrobials: none
- Dosing Plan
Continue: vancomycin 1250 mg q12h
- Monitoring Plan
Peak Level: 08/04/24 2100 - after 4th dose
Trough Level: 08/05/24 0530
- Follow Up
Pharmacy will continue to follow.
Vancomycin Follow UP
- -
Patient Age: 64
Patient Sex: Female
Vancomycin Day #: 2
Indication: Bacteremia
Requesting Provider: Oral
Pertinent Antimicrobial Allergies:
Cefzil(hives), cephalosporins, Cipro, Penicillins (hives) , Bactrim (hives)
Height / Weight:
Height 5 ft 5 in
Actual Weight 80.9 kg
Pertinent Past Medical History: breast Ca on Chemotx (last chemo 4 days ago)
- Vital Signs / Lab Results
Temp Pulse Resp BP Pulse Ox
97.9 F 92 20 109/84 97
08/04/24 02:28 08/04/24 06:00 08/04/24 06:00 08/04/24 06:00 08/04/24 06:00
Lab Results - Hematology
08/02/24 08/03/24 08/03/24
20:27 06:03 17:44
WBC 3.8 L 2.2 L* 1.5 L*
Band Neutrophils
08/04/24
04:17
WBC 1.1 L*
Band Neutrophils 0
Lab Results - Chemistry
08/02/24 08/03/24 08/03/24
20:27 00:53 06:03
BUN 13 11 12
Creatinine 0.7 0.6 0.6
Estimated Creat Clear 82 96 97
Albumin 3.0 L 2.5 L
08/03/24 08/04/24
17:44 04:17
BUN 11 11
Creatinine 0.7 0.7
Estimated Creat Clear 83 84
Albumin
08/02/24 08/03/24 08/03/24
20:28 00:53 04:03
Lactic Acid 2.1 H 1.9 Cancelled
08/03/24 08/03/24
08:03 12:03
Lactic Acid Cancelled Cancelled
Lab Results - Urine
08/03/24
21:45
Urine Nitrite (Reflex) Positive A
Leukocyte Esterase Rfl 1+ A
Ur Squamous Epith Cells 0-2
Microbiology Results
08/03/24 22:57 C. difficile GDH Antigen & Toxins - Final
Feces/Stool C. difficile antigen positive, toxin negative.
Clostridium difficile present, but toxin not detected.
Patient may be a carrier, colonized with nontoxinogenic
strain or the level of toxin in sample is below detection
limits. This information should be used in conjunction with
the patient's clinical history.
08/02/24 20:27 Blood Culture - Preliminary
Blood/Venous Staphylococcus aureus
Gram Stain - Final
08/02/24 20:31 Blood Culture - Preliminary
Blood/Venous Positive culture in progress
Gram Stain - Final
08/02/24 20:51 Blood Culture - Preliminary
Blood/Venous Positive culture in progress
Gram Stain - Final
08/02/24 20:39 Influenza Types A & B (DAHLIA) - Final
Nasal Swab Negative for Influenza A & B, NAAT
Negative results must be combined with clinical observations
and patient history.
Nucleic Acid Amplification test (NAAT)performed on the
[employer] platform.
--- NOTE | 2024-08-04 10:19 | W.PN.ONC ---
Today's Communication / Plan
-
Given heparin being held, threshold for transfusion is plt<20
Removal of port per ID, today or tomorrow
Impression
Impression
Patient is a 64-year-old female with PMH of A-fib and recently diagnosed right breast cancer s/p lumpectomy (IDC G3 [id number] ER pos [place] neg HER2 neg Ki-67 50-60%), currently on adjuvant chemotherapy (last received on Saturday 07/29) with port in place,
who was brought to ED by EMS with altered mental status, diarrhea, decreased appetite, lethargy and excessive weakness. We have been consulted for evaluation of significant drop in platelets.
Patient is currently alert and oriented. Does not offer any complaints except soreness and redness around site of port
# Thrombocytopenia
Received fourth cycle of chemotherapy with docetaxel (taxotere) and carboplatin + Phesgo on 07/29
Patient only has 2 more cycles to fully complete course of chemotherapy
Given her current sepsis, we recommend removing port
Patient does not require port anymore since the remaining 2 chemotherapy cycles can be given through peripheral IV line and Phesgo is injected subcutaneously
Patient has not experienced thrombocytopenia prior to this-etiology more likely to be related to ongoing infection than chemotherapy
Currently no overt bleeding-transfuse platelets if needed
Monitor CBC
Given heparin being held overnight, threshold for transfusion is plt<20
# Acute diarrhea
Currently resolved
Trastuzumab is known to cause diarrhea,especially when combined with pertuzumab
Continue IV fluid therapy
Monitor electrolytes
Management per primary team
#Sepsis
Staph aureus bacteremia with likely source chemotherapy port
Patient is leukopenic but not neutropenic (ANC 2900)
Continue IV fluid therapy and antibiotic treatment per primary team and ID
Erythema and tenderness noted around site of port-removal of port per ID today or tomorrow
Viral panel negative
#AFib
Management per primary team and cardiology
Will continue to follow
Plan
Plan
Removal of port per ID
Sepsis management per primary team
Monitor CBC and electrolytes closely
Given heparin being held, threshold for transfusion is plt<20
Will continue to follow
Subjective/Objective
Subjective/Objective
Vital Signs:
Vital Signs
Temp Pulse Resp BP Pulse Ox
99.6 F 92 20 109/84 97
08/04/24 07:07 08/04/24 06:00 08/04/24 06:00 08/04/24 06:00 08/04/24 06:00
Lab Results:
Laboratory Data
WBC 1.1 10^3/uL (4.8-10.8) L* 08/04/24 04:17
Hgb 9.0 g/dL (12.0-16.0) L 08/04/24 04:17
Hgb Cancelled 08/04/24 04:17
Plt Count 39 10^3/uL (130-400) L 08/04/24 04:17
PT 15.3 Sec (11.4-14.6) H 08/02/24 20:27
INR 1.18 08/02/24 20:27
APTT 70.2 Sec (23.4-35.0) H 08/03/24 21:45
eGFR > 60.00 08/04/24 04:17
--- NOTE | 2024-08-04 10:27 | W.PN.CD ---
Today's Communication / Plan
-
Anticipate AMIO at 200 mg day (after 200 BID for 2 weeks) UNTIL she is done with her chemo and then will stop
Watch sinus rates on Amio + dilt
When platelets allow add Eliquis. May use Eliquis fpc.
If platelets expected to fall with NEXT chemo we may not be able to use Eliquis
Impression / Plan
-
Card: Espinoza (for palps, AT/PSVT)
PAF, RVR => sinus
- AFib is NEW this admit
- Still in sinus
- In setting of sepsis developed AFib
- Now on Amio 200 BID and her usual dilt ER 240 a day (Sinus rate OK)
- Off new anticoagulation given severe thrombocytopenia
- [id number] score is 3 for age, female, HTN
Sepsis, staph aureus, suspected lines sepsis
Pancytopenia from chemo
Breast Ca, on chemo
HTN
Hyponatremia, improving
Hx of PSVT (mechanism uncertain)
Subjective: Feeling better
Physical Exam
Vital Signs/Labs
Vital Signs
Temp Pulse Resp BP Pulse Ox
99.6 F 92 20 109/84 97
08/04/24 07:07 08/04/24 06:00 08/04/24 06:00 08/04/24 06:00 08/04/24 06:00
08/03/24 08/04/24 08/05/24
06:59 06:59 06:59
Actual Weight 78 kg 80.9 kg
PT 15.3 Sec (11.4-14.6) H 08/02/24 20:27
INR 1.18 08/02/24 20:27
APTT 70.2 Sec (23.4-35.0) H 08/03/24 21:45
Magnesium 2.0 mg/dl (1.6-2.3) 08/04/24 04:17
Physical Exam
Constitutional: No acute distress
EENT: Anicteric
Cardiovascular: Rhythm & rate is regular and Pedal edema is absent
Respiratory: Respiratory effort normal and Lungs clear to auscul.
GI: Soft and Distention absent
Neuro/Psych: AO x 3
Data Reviewed
-
Date of Service: August 04, 2024
--- NOTE | 2024-08-04 10:57 | W.PN.ONC ---
Today's Communication / Plan
-
Port removal
Impression
Impression
Patient is a 64-year-old female with PMH of A-fib and recently diagnosed right breast cancer s/p lumpectomy, currently on adjuvant chemotherapy (last received on Saturday 07/29) with port in place, who was brought to ED by EMS with altered mental
status, diarrhea, decreased appetite, lethargy and excessive weakness. We have been consulted for evaluation of significant drop in platelets.
Patient is currently alert and oriented. Does not offer any complaints except soreness and redness around site of port
# Thrombocytopenia
Received fourth cycle of chemotherapy with docetaxel (taxotere) and carboplatin + Phesgo on 07/29
Patient only has 2 more cycles to fully complete course of chemotherapy
Given her current sepsis, we recommend removing port
Patient does not require port anymore since the remaining 2 chemotherapy cycles can be given through peripheral IV line and Phesgo is injected subcutaneously
Patient has not experienced thrombocytopenia prior to this-etiology more likely to be related to ongoing infection than chemotherapy
Currently no overt bleeding-transfuse platelets if needed
Monitor CBC
# Acute diarrhea
Currently resolved
Trastuzumab is known to cause diarrhea,especially when combined with pertuzumab
Continue IV fluid therapy
Monitor electrolytes
Management per primary team
#Sepsis
Patient had an episode of fever yesterday
Patient is leukopenic, and currently neutropenic (ANC 600)
Continue IV fluid therapy and Vanco per primary team and ID
Erythema and tenderness noted around site of port-removal of port per ID
Viral panel negative
#AFib
Management per primary team and cardiology
Will continue to follow
Plan
Plan
Removal of port per ID today or tomorrow
Sepsis management per primary team
Monitor CBC and electrolytes closely
Will continue to follow
Subjective/Objective
Subjective/Objective
Vital Signs:
Vital Signs
Temp Pulse Resp BP Pulse Ox
99.6 F 92 20 109/84 97
08/04/24 07:07 08/04/24 06:00 08/04/24 06:00 08/04/24 06:00 08/04/24 06:00
Lab Results:
Laboratory Data
WBC 1.1 10^3/uL (4.8-10.8) L* 08/04/24 04:17
Hgb 9.0 g/dL (12.0-16.0) L 08/04/24 04:17
Hgb Cancelled 08/04/24 04:17
Plt Count 39 10^3/uL (130-400) L 08/04/24 04:17
PT 15.3 Sec (11.4-14.6) H 08/02/24 20:27
INR 1.18 08/02/24 20:27
APTT 70.2 Sec (23.4-35.0) H 08/03/24 21:45
eGFR > 60.00 08/04/24 04:17
--- NOTE | 2024-08-04 10:57 | W.PN.ID1 ---
Date of Service
Date of Service: August 04, 2024
Today's Communication
Port removal. cx tip.
Continue Vancomycin.
Assessment / Plan
# Staphylococcus aureus bacteremia x 3 sets
# Suspect catheter associated bloodstream infection from port, present on admission.
# Fever
# Coffee-ground emesis
# Diarrhea due to chemo
# New onset Afib
# R Breast cancer on adjuvant chemotherapy
# Neutropenia and Pancytopenia due to chemotherapy
# Multiple antibiotic allergies including penicillin, cephalosporins, sulfa, cipro
- Follow repeat blood cultures x 2
-TTE: no valvular disease
- Stool C. diff Ag+, toxin neg = colonization
- For port removal, cx tip.
- Continue vancomycin. Follow AUC.
- Follow temps/CBC
-Neutropenic precaution.
Chief Complaint
-: Clinical Sepsis and Bacteremia
Subjective / Review of Systems
Had coffee-ground emesis and diarrhea overnight, none this am.
Vital Signs / Physical Exam
Vital Signs
Vital Signs
Temp Pulse Resp BP Pulse Ox
99.6 F 92 20 109/84 97
08/04/24 07:07 08/04/24 06:00 08/04/24 06:00 08/04/24 06:00 08/04/24 06:00
Selected Entries
08/03/24
11:05
Temp 101.8 F H
Physical Exam
Constitutional: Chronically Ill
Eyes: No Conjunctival Hemorrhage and Sclera Anicteric
Cardiovascular: Regular Rate and S1/S2
Pulmonary: Clear
Gastrointestinal: Soft, Non Tender, Non Distended and Normal Bowel Sounds
Extremities: Negative Edema
Neurological: AO x 3
Lines: Port (RCW no erythema)
Objective Data
Lab Data
PT 15.3 Sec (11.4-14.6) H 08/02/24 20:27
INR 1.18 08/02/24 20:27
APTT 70.2 Sec (23.4-35.0) H 08/03/24 21:45
Estimated Creat Clear 84 ml/min 08/04/24 04:17
Lactic Acid Cancelled 08/03/24 12:03
Total Bilirubin 1.2 mg/dl (0.2-1.3) 08/02/24 20:27
AST 31 U/L (14-36) 08/02/24 20:27
ALT 19 U/L (0-35) 08/02/24 20:27
Alkaline Phosphatase 70 U/L (38-126) 08/02/24 20:27
Most recent labs reviewed.
Micro Results:
08/02/24 20:31 Blood Culture - Preliminary
Blood/Venous Positive culture in progress
Gram Stain - Final
08/02/24 20:51 Blood Culture - Preliminary
Blood/Venous Staphylococcus aureus
Gram Stain - Final
08/02/24 20:27 Blood Culture - Preliminary
Blood/Venous Staphylococcus aureus
Gram Stain - Final
08/03/24 22:57 C. difficile GDH Antigen & Toxins - Final
Feces/Stool C. difficile antigen positive, toxin negative.
Clostridium difficile present, but toxin not detected.
Patient may be a carrier, colonized with nontoxinogenic
strain or the level of toxin in sample is below detection
limits. This information should be used in conjunction with
the patient's clinical history.
- Final
Negative for Norovirus GI and GII.
08/04/24 04:17 Blood Culture - Pending
Blood/Venous
08/04/24 04:17 Blood Culture - Pending
Blood/Venous
08/03/24 22:57 Salmonella/Shigella Culture - Pending
Feces/Stool Campylobacter Culture - Pending
Shiga Toxin Test - Pending
Stool Leukocytes - Pending
08/03/24 21:45 Urine Culture - Pending
Urine
08/02/24 20:28 Urine Culture - Pending
Urine
08/02/24 20:39 Influenza Types A & B (DAHLIA) - Final
Nasal Swab Negative for Influenza A & B, NAAT
Negative results must be combined with clinical observations
and patient history.
Nucleic Acid Amplification test (NAAT)performed on the
[employer] platform.
08/02/24 CXR: Probable infectious/inflammatory pneumonitis.
--- NOTE | 2024-08-04 13:48 | CM ---
Patient seen at bedside in IMU with patient and brother in law. Patient indicated that she has no needs at this time. CM will continue to follow for discharge planning needs.
Plan; pending PT eval
[2024-08-04 14:00] LABS: Hematocrit 22.6 % (37.0-47.0); Hemoglobin 8.1 g/dL (12.0-16.0)
[2024-08-04 14:15] LABS: Blood Urea Nitrogen 10 mg/dl (7-17); Calcium 6.7 mg/dl (8.4-10.2); Carbon Dioxide 16 mmol/L (22-30); Chloride 113 mmol/L (98-107); Estimated Creatinine Clearance 98 ml/min; Glucose 132 mg/dl (70-99); Magnesium 1.7 mg/dl (1.6-2.3); Potassium 2.8 mmol/L (3.5-5.1); Sodium 134 mmol/L (135-145); eGFR > 60.00
[2024-08-04] MEDS: CALCIUM GLUCONATE 130 MG IV (15:18)
[2024-08-04] MEDS: POTASSIUM PHOSPHATE 259.0909 MEQ IV (15:18)
--- NOTE | 2024-08-04 16:57 | PTCARENOTE ---
pt off floor in IRAdfor port removal.
--- NOTE | 2024-08-04 18:33 | PTCARENOTE ---
pt back in atrial fib on moinitor. heart rate 140. tiger texted cardiology. awaiting further orders.
[2024-08-04] MEDS: TYLENOL 650 MG PO (19:45)
[2024-08-04] MEDS: LOPRESSOR 5 MG IV (20:56)
[2024-08-04 21:57] LABS: Hemoglobin 8.9 g/dL (12.0-16.0)
[2024-08-04 22:05] LABS: Vancomycin Peak 26.2 ug/ml (18-26)
[2024-08-04] MEDS: NSS IV (23:52)
[2024-08-05] VITALS (20 sets, daily range): BP systolic 82–127; BP diastolic 55–86; PULSE 108; O2SAT 95; BMI 30.4
[2024-08-05] MEDS: ATIVAN 0.5 MG PO (00:24)
[2024-08-05] MEDS: SYNTHROID 50 MCG PO (05:16)
[2024-08-05] MEDS: VANCOCIN 275 MG IV ×2 (05:16→18:31)
--- NOTE | 2024-08-05 05:37 | PTCARENOTE ---
Pt AAOx3, forgetful and withdrawn. Anxious at times. Pt HR was in the 160-170's Afib. Hospitals notified. Pt was given her amiodarone PO first and waited 1 hr. Pt HR got better, but remain high. Pt was order 5 mg IV metoprolol. Since then, pt HR
has been in mid 90-130's. SBP > 90. Pt has diminished B/L lung sounds. Shallow breathing, SaO2 94% RA. Occasional nonproductive moist cough. Pt has hyperactive BS. Pt has a few episodes of green mucus loose stools. Incontinence of urine and bowel.
Q2 turn as tolerated. Family at beside. Call lopez within reach and will cont w/ tx plan.
[2024-08-05 05:57] LABS: Vancomycin Trough 14.9 ug/ml (5-20)
[2024-08-05 06:03] LABS: Hematocrit 25.4 % (37.0-47.0); Hemoglobin 9.2 g/dL (12.0-16.0); Mean Corp Hgb Conc. 36.2 g/dL (33.0-37.0); Mean Corpuscular Hgb 33.7 pg (27.0-31.0); Platelet Count 42 10^3/uL (130-400); Red Blood Cell Count 2.73 10^6/uL (4.20-5.40); Red Cell Dist. Width 16.9 % (11.5-14.5); White Blood Cell Count 1.1 10^3/uL (4.8-10.8)
[2024-08-05 06:13] LABS: Blood Urea Nitrogen 11 mg/dl (7-17); Calcium 7.9 mg/dl (8.4-10.2); Carbon Dioxide 20 mmol/L (22-30); Chloride 111 mmol/L (98-107); Estimated Creatinine Clearance 85 ml/min; Glucose 145 mg/dl (70-99); Magnesium 1.8 mg/dl (1.6-2.3); Sodium 137 mmol/L (135-145); eGFR > 60.00
[2024-08-05 06:18] LABS: Urine Potassium 128.2 mmol/L (30-90); Urine Sodium 72 mmol/L (30-90)
[2024-08-05] MEDS: KCL 270 MEQ IV (06:43)
--- NOTE | 2024-08-05 07:06 | W.PN.HOSP.TC ---
Today's Communication/Plan
-
;/
Assessment / Plan
Assessment / Plan
Assessment/plan
#Sepsis secondary to catheter associated bloodstream infection from port
-Fever, tachycardia, leukopenia, immunocompromised on presentation
-Diarrhea Likely precipitated by recent chemotherapy, Neulasta
-Continue vancomycin
-ID following
-Port discontinued with the tip cultured, pending.
-Blood culture Staphylococcus aureus bacteremia x 3 sets. Follow cultures until clear
-Continue IV fluids
-Echocardiogram 08/03- Normal biventricular size and systolic function without regional wall motion abnormality. LVEF 55-60%. No significant valvular disease.
#Coffee-ground emesis likely chemotherapy related
-No new episode as of 08/05
-GI following
-Etiology likely Priya-Mccloud versus gastritis versus peptic ulcer
-Continue supportive care
-Hold heparin
-Continue PPI
-Monitor CBC closely
#Paroxysmal atrial fibrillation with RVR
-EKG on presentation A-fib with RVR
-No history of A-fib, CAD, CHF
- Amiodarone, diltiazem and as needed Lopressor for rate control
-heparin gtt for anticoagulation(on hold)
-TSH normal
-Cardiology following
#Acute metabolic encephalopathy likely secondary to sepsis versus dehydration versus UTI
-Likely multifactorial in the setting of sepsis, metabolic derangement, hypovolemia
-CT head-no acute intracranial abnormality noted
-Mentation back to baseline
#Hypovolemic hyponatremia
-Likely secondary to diarrhea and sepsis
-resolved with IV fluids
#Hypokalemia
-Replete
#Hypocalcemia
-Repleted
#Hypophosphatemia
-Repleted
#History of breast cancer s/p double breast conserving lumpectomy with sentinel lymph node dissection
-On adjuvant chemotherapy Pertuzumab-trastuzumab and taxotere/carboplatin with radiation every 2 weeks
-Follows [facility]
-Oncology following
-Received fourth cycle of chemotherapy with TCHP on 07/29
-Port removed
#Pancytopenia
-Likely chemotherapy induced
-Monitor CBC
#Hypothyroidism
-Levothyroxine
DVT prophylaxis heparin GTT(On hold)
CODE STATUS full code
Anticipated Discharge: > 48 hours
Subjective/Interval History
-
Patient seen at bedside. Denies acute complaints of chest pain, shortness of breath. Reports diarrhea still ongoing. Reports mild cough overnight, although states cough is nonproductive
Objective Data
-
Labs:
Laboratory Results
08/04/24 08/05/24
21:39 05:13
WBC 1.1 L*
Hgb 8.9 L 9.2 L
Hct 24.0 L 25.4 L
Plt Count 42 L
Sodium 137
Potassium 3.0 L
Chloride 111 H
Carbon Dioxide 20 L
BUN 11
Creatinine 0.7
Glucose 145 H
Calcium 7.9 L
Vital Signs:
Vital Signs
Temp Pulse Resp BP Pulse Ox
98.2 F 110 24 107/76 93
08/05/24 02:48 08/05/24 04:00 08/05/24 04:00 08/05/24 04:00 08/05/24 04:00
I&O
08/04/24 08/05/24 08/06/24
06:59 06:59 06:59
Intake Total 1945 / 1945 3190 / 3190
Output Total 300 / 300 100 / 100
Balance 1645 / 1645 3090 / 3090
Review of Systems
-
All other systems: Reviewed and negative (Except as documented)
Physical Exam
-
General: No Apparent Distress and Comfortable
HEENT: Normocephalic
Respiratory: Clear to Auscultation
Cardiac: Regular Rhythm and S1/S2; Negative Murmur, Rub or Gallop
GI: Soft, Nontender and Nondistended
Musculoskeletal: No Clubbing, No Cyanosis and No Edema
Neuro: Nonfocal/Grossly Intact
[2024-08-05 07:45] LABS: Band Neutrophils 3 % (0-3); Segmented Neutrophils 57 % (42-75)
[2024-08-05 07:46] LABS: Lymphocytes 20 % (20-51); Monocytes 20 % (2-9)
[2024-08-05 07:47] LABS: Platelets Checked Yes
[2024-08-05 07:48] LABS: Normal RBC Morphology Yes; Total Cells Counted 100
[2024-08-05 07:52] LABS: Absolute Neutrophils -Man Diff 0.6 10^3/uL (1.4-6.5)
--- NOTE | 2024-08-05 08:45 | W.PN.GI.CBS2 ---
Addendum entered and electronically signed by Maricarmen Haider MD 08/05/24 17:28:
I saw and examined the patient.
The CLEATER or PA's note was reviewed and I agree with the note.
Comment: Patient without any abdominal pain, nausea or vomiting. Tolerating diet. Multiple green mucoid stool, C. difficile antigen positive but toxin negative.
No further episodes of coffee-ground emesis as before, no episodes of melena.
- coffee-ground emesis could be related to esophagitis, ulcer disease versus other.
currently no evidence of active bleeding noted
Given pancytopenia, no plans for upper endoscopy.
Continue pantoprazole 40 mg IV daily.
Currently on regular diet.
-Diarrhea could be related to recent chemo, stool cultures pending but no white cells noted. C. difficile antigen positive toxin negative.
Patient empirically treated with vancomycin 125 mg daily per ID. On probiotics as well.
Patient also on loperamide 2 mg every 4 hours as needed for possible chemo induced diarrhea, okay as long as abdominal exam does not show any abdominal distention and no infection noted on stool studies.
If any overt active bleeding, need to call us back but will sign off.
Addendum entered and electronically signed by ODYLE Modi 08/05/24 11:19:
reviewed with Dr. Roy for C-diff ag + tox neg stool.
Original Note:
Today's Communication / Plan
-
no further vomiting or hematemesis
overall feeling better
still with neutropenia
hbg up to 9.2, platelets 42,000
cont supportive care
cont abx per ID with + blood cx
regular diet as tolerated -- mostly drinking fluids will change to ensure vanilla BID
small amount stools- c-diff ag + tox neg -- ID following for need to add vanco cont probiotics
hold on EGD unless signs of aggressive bleeding and platelets greater than 50,000
close monitoring for bleeding with need for anticoagulation-- current heparin hold with low platelets
oncology following
updated family
Assessment / Plan
-
The patient is a 64-year-old female with past medical history as noted who presents with weakness. She has a history of breast cancer currently undergoing adjuvant chemotherapy, and presents with weakness, lethargy and some confusion. She was
having some diarrhea, and found on admission to have pancytopenia. She had an episode of vomiting some coffee-ground material with admission This hospitalization she was found to be in A-fib and was on heparin, now stopped. She did have a fever.
She denies any abdominal pain. She denies any extraneous NSAIDs recently.
-coffee ground emesis
-nausea/vomiting/diarrhea
-c-diff ag + tox neg
-blood cx with gram + cocci in clusters
-recent chemo with breast CA
-pancytopenia
-neuropenia
-fever with concern for sepsis
-afib with heparin Gtt
PLAN:
no further vomiting or hematemesis
overall feeling better
still with neutropenia
hbg up to 9.2, platelets 42,000
cont supportive care
cont abx per ID with + blood cx
regular diet as tolerated -- mostly drinking fluids will change to ensure vanilla BID
small amount stools- c-diff ag + tox neg -- ID following for need to add vanco cont probiotics
hold on EGD unless signs of aggressive bleeding and platelets greater than 50,000
close monitoring for bleeding with need for anticoagulation-- current heparin hold with low platelets
oncology following
updated family
Subjective
Subjective
Date of Service: August 05, 2024
08/05 green mucoid stool on regular diet
Objective
Data Reviewed
Laboratory Data:
Laboratory Results
08/05/24 05:13
08/05/24 05:13
Laboratory Results
PT 15.3 Sec (11.4-14.6) H 08/02/24 20:27
INR 1.18 08/02/24 20:27
APTT 70.2 Sec (23.4-35.0) H 08/03/24 21:45
Phosphorus 2.0 mg/dl (2.5-4.5) L 08/04/24 04:17
Magnesium 1.8 mg/dl (1.6-2.3) 08/05/24 05:13
Total Bilirubin 1.2 mg/dl (0.2-1.3) 08/02/24 20:27
AST 31 U/L (14-36) 08/02/24 20:27
ALT 19 U/L (0-35) 08/02/24 20:27
Alkaline Phosphatase 70 U/L (38-126) 08/02/24 20:27
Lipase 23 U/L (23-300) 08/02/24 20:27
Vital Signs and I&O:
Vital Signs
Temp Pulse Resp BP Pulse Ox
98.2 F 110 24 107/76 93
08/05/24 02:48 08/05/24 04:00 08/05/24 04:00 08/05/24 04:00 08/05/24 04:00
I&O
08/04/24 08/05/24 08/06/24
06:59 06:59 06:59
Intake Total 1945 / 194 3190 / 3190
Output Total 300 / 300 100 / 100
Balance 1645 / 1645 3090 / 3090
Physical Exam
Physical Exam
HEENT: Anicteric and Moist mucous membranes
Cardiology: Irregular Rate/Rhythm (tachy)
Pulmonary: Clear
GI: Soft, Non Distended and Non Tender
Rectal: Other (small amount brown loose stool in pad)
Extremities: No Edema
Neuro: Non Focal
[2024-08-05 09:11] LABS: Phosphorus 2.3 mg/dl (2.5-4.5)
[2024-08-05] MEDS: CARDIZEM CD 240 MG PO (09:13)
[2024-08-05] MEDS: CLARITIN 10 MG PO (09:13)
[2024-08-05] MEDS: VISBIOME 1 CAP PO (09:13)
[2024-08-05] MEDS: NSS (PRESERVATIVE FREE) 10 ML IV (09:13)
[2024-08-05] MEDS: PACERONE 200 MG PO (09:13)
[2024-08-05] MEDS: PROTONIX IV 40 MG IV (09:14)
[2024-08-05] MEDS: NSS 1000 IV ×2 (09:27→18:35)
[2024-08-05] MEDS: IMODIUM 2 MG PO ×2 (09:33→15:07)
--- NOTE | 2024-08-05 09:59 | PHA.VAN.FU ---
Vancomycin Assessment / Plan
- Assessment
Renal Function: Stable
WBC's are: Stable
Neutropenia: ANC 600
In the past 24 hrs, patient has been: Afebrile
- Assessment - Therapeutic Drug Monitoring
Extrapolated Cmax (mcg/mL): 30.8
Peak level was drawn: Less than 1 hour after previous dose
Extrapolated Cmin (mcg/mL): 14.1
Trough Drawn: Appropriately
Levels were drawn: At steady state (vanc 1250 mg q12, prior to 5th maintenance dose)
Calculated AUC (mcg*h/mL): 516
Calculated ke: 0.0744
Calculated half life (H): 9.3
Calculated Vd (L): 65
Calculated Vanc CL (ml/min): 80
- Dosing Plan
Continue: vanc 1250mg q12
- Monitoring Plan
Level(s) appropriate: Recheck trough at minimum of weekly intervals, Repeat sooner for changes in renal function or clinical status
- Follow Up
Pharmacy will continue to follow.
Vancomycin Follow UP
- -
Patient Age: 64
Patient Sex: Female
Vancomycin Day #: 3
Indication: Bacteremia
Requesting Provider: Dr Mixon / Dr Roy
Pertinent Antimicrobial Allergies:
Cefzil(hives), cephalosporins, Cipro, Penicillins (hives) , Bactrim (hives)
Height / Weight:
Height 5 ft 5 in
Actual Weight 82.8 kg
Pertinent Past Medical History: breast Ca on Chemotx (last chemo 4 days ago)
- Vital Signs / Lab Results
Temp Pulse Resp BP Pulse Ox
98.1 F 110 24 108/86 93
08/05/24 07:20 08/05/24 04:00 08/05/24 04:00 08/05/24 09:13 08/05/24 04:00
Lab Results - Hematology
08/02/24 08/03/24 08/03/24
20:27 06:03 17:44
WBC 3.8 L 2.2 L* 1.5 L*
Band Neutrophils
08/04/24 08/05/24
04:17 05:13
WBC 1.1 L* 1.1 L*
Band Neutrophils 0 3
Lab Results - Chemistry
08/02/24 08/03/24 08/03/24
20:27 00:53 06:03
BUN 13 11 12
Creatinine 0.7 0.6 0.6
Estimated Creat Clear 82 96 97
Albumin 3.0 L 2.5 L
08/03/24 08/04/24 08/04/24
17:44 04:17 13:37
BUN 11 11 10
Creatinine 0.7 0.7 0.6
Estimated Creat Clear 83 84 98
Albumin
08/05/24
05:13
BUN 11
Creatinine 0.7
Estimated Creat Clear 85
Albumin
08/02/24 08/03/24 08/03/24
20:28 00:53 04:03
Lactic Acid 2.1 H 1.9 Cancelled
08/03/24 08/03/24
08:03 12:03
Lactic Acid Cancelled Cancelled
Lab Results - Urine
08/03/24
21:45
Urine Nitrite (Reflex) Positive A
Leukocyte Esterase Rfl 1+ A
Ur Squamous Epith Cells 0-2
Microbiology Results
08/04/24 04:17 Blood Culture - Preliminary
Blood/Venous S aureus-Methicillin Sensitive
Gram Stain - Preliminary
08/04/24 04:17 Blood Culture - Preliminary
Blood/Venous S aureus-Methicillin Sensitive
Gram Stain - Preliminary
08/02/24 20:28 Urine Culture - Final
Urine S aureus-Methicillin Sensitive
08/02/24 20:27 Blood Culture - Final
Blood/Venous S aureus-Methicillin Sensitive
Gram Stain - Final
08/02/24 20:51 Blood Culture - Final
Blood/Venous S aureus-Methicillin Sensitive
Gram Stain - Final
08/03/24 22:57 Stool Leukocytes - Final
Feces/Stool
08/02/24 20:31 Blood Culture - Preliminary
Blood/Venous Positive culture in progress
Gram Stain - Final
08/03/24 22:57 C. difficile GDH Antigen & Toxins - Final
Feces/Stool C. difficile antigen positive, toxin negative.
Clostridium difficile present, but toxin not detected.
Patient may be a carrier, colonized with nontoxinogenic
strain or the level of toxin in sample is below detection
limits. This information should be used in conjunction with
the patient's clinical history.
- Final
Negative for Norovirus GI and GII.
Therapeutic Drug Monitoring
Vancomycin Peak 26.2 ug/ml (18-26) H 08/04/24 21:39
Vancomycin Trough 14.9 ug/ml (5-20) 08/05/24 05:14
--- NOTE | 2024-08-05 10:24 | W.PN.ONC ---
Documented by User: Harry Olivarez MD, Resident 08/05/24 12:23
Today's Communication / Plan
-
Consider empiric po vanco for C.diif
Threshold for transfusion is plt <20-Consider restarting lower-dose of anticoagulant if patient remains stable w/o further hematemesis
Will continue to follow
Impression
Impression
Patient is a 64-year-old female with PMH of A-fib and recently diagnosed right breast cancer s/p lumpectomy (IDC G3 [id number] ER pos CO neg HER2 neg Ki-67 50-60%), currently on adjuvant chemotherapy (last received on Saturday 07/29) with port in place,
who was brought to ED by EMS with altered mental status, diarrhea, decreased appetite, lethargy and excessive weakness. We have been consulted for evaluation of significant drop in platelets.
Patient is currently alert and oriented. Does not offer any complaints except soreness and redness around site of port
# Thrombocytopenia
Received fourth cycle of chemotherapy with docetaxel (taxotere) and carboplatin + Phesgo on 07/29
Patient only has 2 more cycles to fully complete course of chemotherapy
Patient does not require port anymore since the remaining 2 chemotherapy cycles can be given through peripheral IV line and Phesgo is injected subcutaneously- port removed on 08/04
Patient has not experienced thrombocytopenia prior to this-etiology more likely to be related to ongoing infection than chemotherapy although both possibly contributing
Currently no overt bleeding/hematemesis
Cont to monitor CBC
Heparin remains on hold- threshold for transfusion is plt<20
Expectant cancer management for now since anticipating 14 days of antibiotic therapy
# Acute diarrhea
Currently resolved
Trastuzumab is known to cause diarrhea,especially when combined with pertuzumab
Stool C. diff Ag+ but toxin neg-Since patient is neutropenic, consider empiric po vanco for C.diff
Continue IV fluid therapy
Monitor electrolytes
Management per primary team
#Sepsis
Staph aureus bacteremia with likely source chemotherapy port
Patient is leukopenic and neutropenic (WGO=460)-Neutropenic precaution
Continue IV fluid therapy and antibiotic treatment per primary team and ID
Erythema and tenderness noted around site of port- Mediport removed on 08/04
Viral panel negative
#AFib
Management per primary team and cardiology
Will continue to follow
Plan
Plan
Chemo port removed on 08/04
Monitor CBC and electrolytes closely- replete K as needed
Plt count is slightly improving-Threshold for transfusion is plt <20-Consider restarting lower-dose of anticoagulant if patient remains stable w/o further hematemesis
Since patient is neutropenic, consider empiric po vanco for C.diff
Trend temp curve-Sepsis management per primary team
Will continue to follow
Subjective/Objective
Subjective/Objective
Patient feels well. Does not offer any complaints. Does not report any more episodes of loose stools or hematemesis.
Vital Signs:
Vital Signs
Temp Pulse Resp BP Pulse Ox
98.1 F 110 24 108/86 93
08/05/24 07:20 08/05/24 04:00 08/05/24 04:00 08/05/24 09:13 08/05/24 04:00
Lab Results:
Laboratory Data
WBC 1.1 10^3/uL (4.8-10.8) L* 08/05/24 05:13
Hgb 9.2 g/dL (12.0-16.0) L 08/05/24 05:13
Plt Count 42 10^3/uL (130-400) L 08/05/24 05:13
PT 15.3 Sec (11.4-14.6) H 08/02/24 20:27
INR 1.18 08/02/24 20:27
APTT 70.2 Sec (23.4-35.0) H 08/03/24 21:45
eGFR > 60.00 08/05/24 05:13

Documented by User: DOYLE Gruber 08/05/24 15:13
Today's Communication / Plan
-
daily CBC with diff
Will continue to follow
Plan
Plan
Chemo port removed on 08/04
Monitor CBC and electrolytes closely- replete K as needed
Plt count is slightly improving-Threshold for transfusion is plt <20-Consider restarting lower-dose of anticoagulant if patient remains stable w/o further hematemesis
Since patient is neutropenic, consider empiric po vanco for C.diff
Trend temp curve-Sepsis management per primary team
Will continue to follow
Pt seen and examined. I agree wtih the assessment and plan by Dr. Olivarez with the following updates:
-I defer to cardiology regarding the resumption of anticoagulation and dose for atrial fibrillation based on continued assessment of risk/benefit
-I defer to ID regarding C. diff ppx with positive antigen, negative toxin in the setting of neutropenia, hospitalization, and on abx
-neutropenic precautions -s/p pegfilgrastim 08/01
-thrombocytopenia 2/2 chemo -transfuse platelets <20 in the setting of NF, <50 prn bleeding
-acute anemia likely multifactorial including infection, abx, dilution, chemo. Monitor for bleeding. transfuse Hgb <7 or as needed for sxs anemia
-Outpt follow up with Dr. Rosalia Bernard to determine when treatment can be resumed upon hospital recovery
Fabi KWON
[2024-08-05] MEDS: POTASSIUM PHOSPHATE 259.0909 MEQ IV (11:56)
--- NOTE | 2024-08-05 11:56 | W.PN.ID1 ---
Date of Service
Date of Service: August 05, 2024
Today's Communication
See below
Assessment / Plan
# Staphylococcus aureus (MSSA) bacteremia x 5 sets
# Catheter associated bloodstream infection from port, present on admission.
. / s/p port removed, cath tip S. aureus
# s/p Fever resolved
# Coffee-ground emesis
# Diarrhea due to chemo
# New onset Afib
# R Breast cancer on adjuvant chemotherapy
# Neutropenia and Pancytopenia due to chemotherapy
# Multiple antibiotic allergies including penicillin, cephalosporins, sulfa, cipro
-TTE: no valvular disease
- Continue to repeat blood cultures x 2 until at least 2 sets neg.
- Hopefully, blodd cultures will start to clear after port removal.
If bacteremia sustained, recommend DONNELL next week.
-Continue IV Vancomycin. Follow levels.
- Follow temps/wbc
-Neutropenic precaution.
- Stool C. diff Ag+, toxin neg = colonization
- Add prophylactic Vancomycin 125mg po daily while on systemic abx.
Chief Complaint
-: Clinical Sepsis and Bacteremia
Subjective / Review of Systems
BM now loose
Vital Signs / Physical Exam
Vital Signs
Vital Signs
Temp Pulse Resp BP Pulse Ox
98.1 F 131 24 97/67 95
08/05/24 07:20 08/05/24 10:00 08/05/24 10:00 08/05/24 10:00 08/05/24 10:00
Physical Exam
Constitutional: No Acute Distress and Chronically Ill
Pulmonary: Clear
Gastrointestinal: Soft, Non Tender, Non Distended and Normal Bowel Sounds
Extremities: Negative Edema
Neurological: AO x 3
Objective Data
Lab Data
Lab Results
08/05/24 05:13
08/05/24 05:13
PT 15.3 Sec (11.4-14.6) H 08/02/24 20:27
INR 1.18 08/02/24 20:27
APTT 70.2 Sec (23.4-35.0) H 08/03/24 21:45
Estimated Creat Clear 85 ml/min 08/05/24 05:13
Lactic Acid Cancelled 08/03/24 12:03
Total Bilirubin 1.2 mg/dl (0.2-1.3) 08/02/24 20:27
AST 31 U/L (14-36) 08/02/24 20:27
ALT 19 U/L (0-35) 08/02/24 20:27
Alkaline Phosphatase 70 U/L (38-126) 08/02/24 20:27
Most recent labs reviewed.
Micro Results:
08/04/24 08:18 Catheter Tip Culture - Preliminary
Catheter Tip Staphylococcus aureus
08/02/24 20:31 Blood Culture - Final
Blood/Venous S aureus-Methicillin Sensitive
Gram Stain - Final
08/03/24 21:45 Urine Culture - Final
Urine S aureus-Methicillin Sensitive
08/05/24 09:33 Blood Culture - Pending
Blood/Venous
08/04/24 04:17 Blood Culture - Preliminary
Blood/Venous S aureus-Methicillin Sensitive
Gram Stain - Preliminary
08/04/24 04:17 Blood Culture - Preliminary
Blood/Venous S aureus-Methicillin Sensitive
Gram Stain - Preliminary
08/05/24 09:21 Blood Culture - Pending
Blood/Venous
08/02/24 20:28 Urine Culture - Final
Urine S aureus-Methicillin Sensitive
08/02/24 20:27 Blood Culture - Final
Blood/Venous S aureus-Methicillin Sensitive
Gram Stain - Final
08/02/24 20:51 Blood Culture - Final
Blood/Venous S aureus-Methicillin Sensitive
Gram Stain - Final
08/03/24 22:57 Salmonella/Shigella Culture - Pending
Feces/Stool Campylobacter Culture - Pending
Shiga Toxin Test - Pending
Stool Leukocytes - Final
08/03/24 22:57 C. difficile GDH Antigen & Toxins - Final
Feces/Stool C. difficile antigen positive, toxin negative.
Clostridium difficile present, but toxin not detected.
Patient may be a carrier, colonized with nontoxinogenic
strain or the level of toxin in sample is below detection
limits. This information should be used in conjunction with
the patient's clinical history.
- Final
Negative for Norovirus GI and GII.
08/02/24 20:39 Influenza Types A & B (DAHLIA) - Final
Nasal Swab Negative for Influenza A & B, NAAT
Negative results must be combined with clinical observations
and patient history.
Nucleic Acid Amplification test (NAAT)performed on the
Glyde platform.
08/02/24 CXR: Probable infectious/inflammatory pneumonitis.
Care Review
Plan reviewed with: Physician (Dr. Emy Miller and DOYLE Huynh)
--- NOTE | 2024-08-05 12:21 | PTCARENOTE ---
Pt received from nightstxft RN, Ox3 and appropriate. HR currently in the 110's, + pulses, no edema. Currently on 95% on RA, breath sounds clear throughout. Incontinent. Pt incontinent of a large amount of diarrhea, pt is Cdiff cleared. GI ordered
Loperamide, so far seems to be working well. Skin is red from the frequent diarrhea, barrier ointment applied, no open areas. IV Potassium currently infusing. at bedside. Call lopez within reach, pt makes needs known.
[2024-08-05] MEDS: FIRVANQ 125 MG PO (14:24)
[2024-08-05] MEDS: TYLENOL 650 MG PO ×2 (15:07→21:41)
--- NOTE | 2024-08-05 17:07 | W.PN.CD ---
Today's Communication / Plan
-
will increase Amio to 400 BID
Anticipate AMIO at 200 mg day (after 400 BID for 2 weeks) UNTIL she is done with her chemo and then will stop
Watch sinus rates on Amio + dilt
When platelets allow add Eliquis. May use Eliquis assisted
If platelets expected to fall with NEXT chemo we may not be able to use Eliquis
Impression / Plan
-
Card: Espinoza (for palps, AT/PSVT)
PAF, RVR => sinus
- AFib is NEW this admit
- Was in sinus most of 08/04/2024, went back into AFib RVR evening of 08/04/2024, was in AFib at my exam at about 0800 hrs 08/05/2024
- In setting of sepsis developed AFib
- on Amio 200 BID and her usual dilt ER 240 a day (Sinus rate OK) => will increase Amio to 400 BID
- Off new anticoagulation given severe thrombocytopenia
- [id number] score is 3 for age, female, HTN
Sepsis, staph aureus, suspected lines sepsis
Pancytopenia from chemo
Breast Ca, on chemo
HTN
Hyponatremia, improving
Hx of PSVT (mechanism uncertain)
Subjective: Feeling better
Physical Exam
Vital Signs/Labs
Vital Signs
Temp Pulse Resp BP Pulse Ox
99.6 F 131 24 97/67 95
08/05/24 15:15 08/05/24 10:00 08/05/24 10:00 08/05/24 10:00 08/05/24 10:00
08/04/24 08/05/24 08/06/24
06:59 06:59 06:59
Actual Weight 80.9 kg 82.8 kg
08/05/24 05:13
08/05/24 05:13
PT 15.3 Sec (11.4-14.6) H 08/02/24 20:27
INR 1.18 08/02/24 20:27
APTT 70.2 Sec (23.4-35.0) H 08/03/24 21:45
Magnesium 1.8 mg/dl (1.6-2.3) 08/05/24 05:13
Physical Exam
Constitutional: No acute distress
EENT: Anicteric
Cardiovascular: Rhythm/rate is irregular and S1S2 is normal
Respiratory: Respiratory effort normal and Lungs clear to auscul.
GI: Soft and Distention absent
Neuro/Psych: AO x 3
Data Reviewed
-
Date of Service: August 05, 2024
[2024-08-05 19:36] LABS: Hepatitis C Antibody Negative (Negative)
[2024-08-05] MEDS: PACERONE 400 MG PO (22:11)
[2024-08-06] VITALS (20 sets, daily range): BP systolic 84–138; BP diastolic 63–124; BMI 31.3
--- NOTE | 2024-08-06 00:41 | PTCARENOTE ---
Assumed care of pt from dayshift RN. Pt ox3, drowsy and easily arousable. afib on monitor. 92% on RA. Pt had Vitals and assessment as documented. Pt refused all hygiene, this RN educated pt on importance of hygiene. Pt temp 100.6 and PRN Tylenol
administered (see APR). Pt resting in bed with at bedside and call lopez in reach.
[2024-08-06 05:01] LABS: Hematocrit 24.1 % (37.0-47.0); Hemoglobin 8.5 g/dL (12.0-16.0); Mean Corp Hgb Conc. 35.3 g/dL (33.0-37.0); Mean Corpuscular Hgb 32.8 pg (27.0-31.0); Mean Corpuscular Volume 93.1 fL (81.0-99.0); Mean Platelet Volume 12.8 fL (7.4-10.4); Platelet Count 48 10^3/uL (130-400); Red Blood Cell Count 2.59 10^6/uL (4.20-5.40); White Blood Cell Count 3.2 10^3/uL (4.8-10.8)
[2024-08-06 05:21] LABS: Blood Urea Nitrogen 13 mg/dl (7-17); Calcium 7.5 mg/dl (8.4-10.2); Carbon Dioxide 18 mmol/L (22-30); Chloride 112 mmol/L (98-107); Estimated Creatinine Clearance 67 ml/min; Glucose 126 mg/dl (70-99); Magnesium 1.6 mg/dl (1.6-2.3); Phosphorus 2.2 mg/dl (2.5-4.5); Potassium 2.8 mmol/L (3.5-5.1); Sodium 136 mmol/L (135-145); eGFR > 60.00
[2024-08-06] MEDS: NSS 1000 IV (06:27)
[2024-08-06] MEDS: NSS IV (06:27)
[2024-08-06] MEDS: VANCOCIN 275 MG IV ×2 (06:28→17:41)
[2024-08-06] MEDS: SYNTHROID 50 MCG PO (06:29)
[2024-08-06] MEDS: KCL 270 MEQ IV ×2 (06:29→16:33)
--- NOTE | 2024-08-06 06:46 | PTCARENOTE ---
Pt K 2.8. DOYLE He notified. Rx received for KCl. Currently infusing (see MAR).
--- NOTE | 2024-08-06 07:33 | W.PN.HOSP.TC ---
Today's Communication/Plan
-
Continue IV vancomycin and oral vancomycin per ID
Follow-up third set of blood cultures and plan for DONNELL if positive
Amiodarone load
Plan Eliquis when platelets >50
IV PPI and Imodium
Trend CBC and ANC
IVF and replete electrolytes
Assessment / Plan
Assessment / Plan
#MSSA bacteremia
#Sepsis secondary to chemotherapy port infection
-2 sets of blood cultures positive for MSSA, s/p port removal here
-Currently unable to rule out endocarditis due to recurrent positivity to blood cultures
-Initially started on IV vancomycin, has allergy to cephalosporins and other antibiotic
-Remains hemodynamically stable off vasopressors, no fevers, leukopenia improving
-Continue IV vancomycin and follow third set of blood cultures
-If blood cultures positive on third set, will need to arrange for DONNELL
-Continue to trend CBC and temperature curve
-Consider midodrine if blood pressure becomes soft
#Coffee-ground emesis
#Anemia of chronic disease
-1 episode of coffee-ground emesis while here, hemoglobin has since stabilized
-Was on IV heparin drip with thrombocytopenia at the time, blood counts now improving
-GI following, was started on IV PPI, remains on regular diet
-Continue to trend CBC and monitor for bleeding
-Continue with IV PPI with pantoprazole 40 mg daily
-If recurrent or hemoglobin downtrends may need EGD
-Hold anticoagulation until platelets improve
#New onset paroxysmal AF with RVR
#H/O SVT/AT
-Developed new onset AF, [id number] 3; s/p IV amiodarone and heparin drip
-Has been initiated on amiodarone load, remains on home diltiazem
-Initially on amio 200 twice daily, has been increased to 400 twice daily
-As of this morning remains in AF with heart rate low 100s, asymptomatic
-Continue amiodarone load and oral diltiazem
-Plan for DOAC when platelet count >50 consistently
#Pancytopenia
-Likely multifactorial with AOCD and new leukopenia/thrombocytopenia from bacteremia
-Less likely related to chemotherapy, per oncology has had fairly stable CBC after on previous sessions
-White count and platelets improving slowly with treatment of underlying sepsis
-Has not had absolute neutropenia, ANC consistently 0.6 or greater here
-Trend CBC with differential daily, continue neutropenic precautions
-Supportive transfusions for bleeding, platelet <10, hemoglobin <7
#NAGMA
#Hypokalemia
#Hypophosphatemia
#Hypomagnesemia
#Hypocalcemia
#Diarrhea from chemotherapy
-Suspect these findings are due to GI loss though cannot rule out RTA completely
-Has had persistent mild acidemia with hypokalemia despite repletion daily
-Infectious workup negative for diarrhea, started on Imodium with improvement
-Will transition IV normal saline to LR due to NAGMA
-Trend BMP/Mag/Phos and replete as needed
-Continue Imodium
-F/U urine anion gap
#C. difficile colonization
-Currently on oral vancomycin per ID while on systemic antibiotics
-Likely can DC when antibiotic course complete
-Monitor bowel status
#Breast cancer s/p double lumpectomy
-Currently being treated for stage I, ER(+)/MA(-)/Her2(-) breast carcinoma
-Status post double lumpectomy currently on adjuvant chemoradiation
-Status post chemotherapy port removal due to above, oncology says no longer needed
-Will need to follow-up after discharge with oncologist to resume chemo and XRT
#Hypothyroidism
-Unclear etiology, home regimen includes levothyroxine supplementation
-No signs or symptoms of abnormal thyroid function here
Diet: Regular
DVT prophylaxis: SCDs
GI prophylaxis: IV PPI
CODE STATUS: Full code
Disposition: SNF when medically stable
Anticipated Discharge: > 48 hours
Subjective/Interval History
-
Date of Service: August 06, 2024
Seen and examined at the bedside. No acute events reported overnight. AFVSS this morning with HR low 100s per minute in AF
Patient states she feels well, denies any complaints. Potassium 2.8, phosphorus 2.2, magnesium 1.6.
Denies any complaints today, states she feels okay better than yesterday. Denies chest pain, palpitations, dyspnea, abdomen pain. Diarrhea improved on Imodium
Objective Data
-
Labs:
Laboratory Results
08/06/24
03:30
WBC 3.2 L
Hgb 8.5 L
Hct 24.1 L
Plt Count 48 L
Sodium 136
Potassium 2.8 L
Chloride 112 H
Carbon Dioxide 18 L
BUN 13
Creatinine 0.9
Glucose 126 H
Calcium 7.5 L
Vital Signs:
Vital Signs
Temp Pulse Resp BP Pulse Ox
97.9 F 101 20 98/63 92
08/06/24 02:54 08/06/24 05:00 08/06/24 05:00 08/06/24 05:00 08/06/24 05:00
I&O
08/05/24 08/06/24 08/07/24
06:59 06:59 06:59
Intake Total 3190 / 3190 1979
Output Total 100 / 100
Balance 3090 / 3090 1979
Review of Systems
-
History Source: Patient
All other systems: Reviewed and negative
Physical Exam
-
General: Well Developed, No Apparent Distress, Obese and Other (Frail-appearing)
HEENT: Normocephalic, Atraumatic, Moist Mucous Membranes and Anicteric
Respiratory: Clear to Auscultation and Non Labored Respirations; Negative Accessory Resp Muscle Use
Cardiac: S1/S2, Irregular Rhythm and Tachycardic; Negative Murmur, Rub or JVD
GI: Soft, Nontender, Nondistended and Normal Bowel Sounds
Musculoskeletal: No Clubbing, No Cyanosis and No Edema
Skin: Warm and Dry; Negative Rash or Jaundice
Neuro: AO x 3 and Nonfocal/Grossly Intact; Negative Tremors
Hematologic / Lymphatic: No Lymphadenopathy
Data Reviewed
-
Labs: Labs Reviewed by me, Discussed with Physician (Batchmaker) and Discussed with Patient
[2024-08-06] MEDS: CARDIZEM CD 240 MG PO (08:21)
[2024-08-06] MEDS: VISBIOME 1 CAP PO (08:21)
[2024-08-06] MEDS: CLARITIN 10 MG PO (08:21)
[2024-08-06] MEDS: FIRVANQ 125 MG PO (08:21)
[2024-08-06] MEDS: NSS (PRESERVATIVE FREE) 10 ML IV (08:21)
[2024-08-06] MEDS: PACERONE 400 MG PO ×2 (08:21→19:35)
--- NOTE | 2024-08-06 08:31 | PHA.VAN.FU ---
Vancomycin Assessment / Plan
- Assessment
Renal Function: SCR Increasing
WBC's are: Trending Up
In the past 24 hrs, patient has been: Febrile (Tmax 100.6)
- Dosing Plan
Continue: Vanc 1250mg IV Q12H
- Monitoring Plan
Level(s) appropriate: Recheck trough at minimum of weekly intervals, Repeat sooner for changes in renal function or clinical status
- Follow Up
Pharmacy will continue to follow.
Vancomycin Follow UP
- -
Patient Age: 64
Patient Sex: Female
Vancomycin Day #: 4
Indication: Bacteremia
Requesting Provider: Dr Mixon / Dr Roy
Pertinent Antimicrobial Allergies:
Cefzil(hives), cephalosporins, Cipro, Penicillins (hives) , Bactrim (hives)
Height / Weight:
Height 5 ft 5 in
Actual Weight 85.3 kg
Pertinent Past Medical History: breast Ca on Chemotx (last chemo 4 days ago)
- Vital Signs / Lab Results
Temp Pulse Resp BP Pulse Ox
97.9 F 101 20 98/63 92
08/06/24 02:54 08/06/24 05:00 08/06/24 05:00 08/06/24 05:00 08/06/24 05:00
Lab Results - Hematology
08/03/24 08/04/24 08/05/24
17:44 04:17 05:13
WBC 1.5 L* 1.1 L* 1.1 L*
Band Neutrophils 0 3
08/06/24
03:30
WBC 3.2 L
Band Neutrophils
Lab Results - Chemistry
08/03/24 08/04/24 08/04/24
17:44 04:17 13:37
BUN 11 11 10
Creatinine 0.7 0.7 0.6
Estimated Creat Clear 83 84 98
08/05/24 08/06/24
05:13 03:30
BUN 11 13
Creatinine 0.7 0.9
Estimated Creat Clear 85 67
Lab Results - Urine
08/03/24
21:45
Urine Nitrite (Reflex) Positive A
Leukocyte Esterase Rfl 1+ A
Ur Squamous Epith Cells 0-2
Microbiology Results
08/05/24 09:33 Blood Culture - Preliminary
Blood/Venous Positive culture in progress
Gram Stain - Preliminary
08/05/24 09:21 Blood Culture - Preliminary
Blood/Venous Positive culture in progress
Gram Stain - Preliminary
08/03/24 22:57 Salmonella/Shigella Culture - Preliminary
Feces/Stool Culture in Progress
Campylobacter Culture - Preliminary
Culture in Progress
Stool Leukocytes - Final
08/04/24 08:18 Catheter Tip Culture - Preliminary
Catheter Tip Staphylococcus aureus
08/02/24 20:31 Blood Culture - Final
Blood/Venous S aureus-Methicillin Sensitive
Gram Stain - Final
08/03/24 21:45 Urine Culture - Final
Urine S aureus-Methicillin Sensitive
08/04/24 04:17 Blood Culture - Preliminary
Blood/Venous S aureus-Methicillin Sensitive
Gram Stain - Preliminary
08/04/24 04:17 Blood Culture - Preliminary
Blood/Venous S aureus-Methicillin Sensitive
Gram Stain - Preliminary
08/02/24 20:28 Urine Culture - Final
Urine S aureus-Methicillin Sensitive
08/02/24 20:27 Blood Culture - Final
Blood/Venous S aureus-Methicillin Sensitive
Gram Stain - Final
08/02/24 20:51 Blood Culture - Final
Blood/Venous S aureus-Methicillin Sensitive
Gram Stain - Final
08/03/24 22:57 C. difficile GDH Antigen & Toxins - Final
Feces/Stool C. difficile antigen positive, toxin negative.
Clostridium difficile present, but toxin not detected.
Patient may be a carrier, colonized with nontoxinogenic
strain or the level of toxin in sample is below detection
limits. This information should be used in conjunction with
the patient's clinical history.
- Final
Negative for Norovirus GI and GII.
Therapeutic Drug Monitoring
Vancomycin Peak 26.2 ug/ml (18-26) H 08/04/24 21:39
Vancomycin Trough 14.9 ug/ml (5-20) 08/05/24 05:14
--- NOTE | 2024-08-06 08:36 | W.PN.ID1 ---
Date of Service
Date of Service: August 06, 2024
Today's Communication
Continue antibiotics.
Assessment / Plan
# Staphylococcus aureus (MSSA) bacteremia x 5 sets
# Catheter associated bloodstream infection from port, present on admission.
. 08/04 s/p port removed, cath tip S. aureus
# s/p Fever resolved
# Coffee-ground emesis
# Diarrhea due to chemo
# New onset Afib
# R Breast cancer on adjuvant chemotherapy
# Neutropenia and Pancytopenia due to chemotherapy
# Multiple antibiotic allergies including penicillin, cephalosporins, sulfa, cipro
-TTE: no valvular disease
- Continue to repeat blood cultures x 2 until at least 2 sets neg.
- Hopefully, blodd cultures will start to clear after port removal.
If bacteremia sustained, recommend DONNELL next week.
- Continue IV Vancomycin. Follow levels closely to prevent nephrotoxicity.
- Follow temps/wbc
- Neutropenic precaution.
- Stool C. diff Ag+, toxin neg = colonization
- Continue prophylactic Vancomycin 125mg po daily while on systemic abx.
����������������������������������������������������������
Chief Complaint
-: Clinical Sepsis and Bacteremia
Subjective / Review of Systems
Patient seen and examined. No pain.
Review of Systems: No Fever and No Chills
Vital Signs / Physical Exam
Vital Signs
Vital Signs
Temp Pulse Resp BP Pulse Ox
97.8 F 101 20 98/63 92
08/06/24 07:30 08/06/24 05:00 08/06/24 05:00 08/06/24 05:00 08/06/24 05:00
Physical Exam
Constitutional: No Acute Distress, Comfortable and Chronically Ill
Eyes: No Conjunctival Hemorrhage and Sclera Anicteric
Cardiovascular: S1/S2; Negative S3/S4
Pulmonary: Clear and Non Labored
Gastrointestinal: Soft, Non Tender, Non Distended and Normal Bowel Sounds
Extremities: Negative Edema
Neurological: AO x 3
Objective Data
Lab Data
Lab Results
08/06/24 03:30
08/06/24 03:30
PT 15.3 Sec (11.4-14.6) H 08/02/24 20:27
INR 1.18 08/02/24 20:27
APTT 70.2 Sec (23.4-35.0) H 08/03/24 21:45
Estimated Creat Clear 67 ml/min 08/06/24 03:30
Lactic Acid Cancelled 08/03/24 12:03
Total Bilirubin 1.2 mg/dl (0.2-1.3) 08/02/24 20:27
AST 31 U/L (14-36) 08/02/24 20:27
ALT 19 U/L (0-35) 08/02/24 20:27
Alkaline Phosphatase 70 U/L (38-126) 08/02/24 20:27
Most recent labs reviewed.
Micro Results:
08/05/24 09:33 Blood Culture - Preliminary
Blood/Venous Positive culture in progress
Gram Stain - Preliminary
08/05/24 09:21 Blood Culture - Preliminary
Blood/Venous Positive culture in progress
Gram Stain - Preliminary
08/06/24 03:30 Blood Culture - Pending
Blood/Venous
08/06/24 03:49 Blood Culture - Pending
Blood/Venous
08/03/24 22:57 Salmonella/Shigella Culture - Preliminary
Feces/Stool Culture in Progress
Campylobacter Culture - Preliminary
Culture in Progress
Shiga Toxin Test - Pending
Stool Leukocytes - Final
08/04/24 08:18 Catheter Tip Culture - Preliminary
Catheter Tip Staphylococcus aureus
08/02/24 20:31 Blood Culture - Final
Blood/Venous S aureus-Methicillin Sensitive
Gram Stain - Final
08/03/24 21:45 Urine Culture - Final
Urine S aureus-Methicillin Sensitive
08/04/24 04:17 Blood Culture - Preliminary
Blood/Venous S aureus-Methicillin Sensitive
Gram Stain - Preliminary
08/04/24 04:17 Blood Culture - Preliminary
Blood/Venous S aureus-Methicillin Sensitive
Gram Stain - Preliminary
08/02/24 20:28 Urine Culture - Final
Urine S aureus-Methicillin Sensitive
08/02/24 20:27 Blood Culture - Final
Blood/Venous S aureus-Methicillin Sensitive
Gram Stain - Final
08/02/24 20:51 Blood Culture - Final
Blood/Venous S aureus-Methicillin Sensitive
Gram Stain - Final
08/03/24 22:57 C. difficile GDH Antigen & Toxins - Final
Feces/Stool C. difficile antigen positive, toxin negative.
Clostridium difficile present, but toxin not detected.
Patient may be a carrier, colonized with nontoxinogenic
strain or the level of toxin in sample is below detection
limits. This information should be used in conjunction with
the patient's clinical history.
- Final
Negative for Norovirus GI and GII.
08/02/24 20:39 Influenza Types A & B (DAHLIA) - Final
Nasal Swab Negative for Influenza A & B, NAAT
Negative results must be combined with clinical observations
and patient history.
Nucleic Acid Amplification test (NAAT)performed on the
[employer] platform.
08/02/24 CXR: Probable infectious/inflammatory pneumonitis.
[2024-08-06] MEDS: MAGNESIUM SULFATE 50 IV (08:40)
--- NOTE | 2024-08-06 09:17 | W.PN.CD ---
Today's Communication / Plan
-
Continue diltiazem and amiodarone
Once platelets are consistently >50k, will add Eliquis
Impression / Plan
-
Card: Doran (for palps, AT/PSVT)
Sepsis due to MSSA bacteremia
- Diagnosis is a threat to life. IV antibiotics require monitoring for drug toxicity.
- Suspected source is Chemo port with cath tip growing Staph aureus. Blood cultures remain positive as recently as 08/05/2024
- ID following. Continue antibiotics.
- TTE: Normal LVEF, no valvular disease
- If persistently positive blood cultures tomorrow, will arrange for DONNELL on Thursday
PAF, RVR
- AFib is NEW this admit. Likely due to sepsis
- Was in sinus most of 08/04/2024, went back into AFib RVR evening of 08/04/2024 => Amio increased to 400 BID
- Continue dilt ER 240 a day and amiodarone 400 mg twice daily
- Off new anticoagulation given severe thrombocytopenia
- Once plt >50, consider Eliquis
- [id number] score is 3 for age, female, HTN
Pancytopenia
- Per oncology, etiology thought to be more likely ongoing infection then chemotherapy though both could be contributing
- Has not been thrombocytopenic in the past with chemo
- Hold AC as above
Sepsis, staph aureus, suspected lines sepsis
Breast Ca, on chemo
HTN
Hyponatremia, improving
Hx of PSVT (mechanism uncertain)
Subjective: Feeling better
Physical Exam
Vital Signs/Labs
Vital Signs
Temp Pulse Resp BP Pulse Ox
97.8 F 101 20 98/63 92
08/06/24 07:30 08/06/24 05:00 08/06/24 05:00 08/06/24 05:00 08/06/24 05:00
0608/06/24 08/07/24
06:59 06:59 06:59
Actual Weight 182 lb 8.684 oz 188 lb 0.869 oz
08/06/24 03:30
08/06/24 03:30
PT 15.3 Sec (11.4-14.6) H 08/02/24 20:27
INR 1.18 08/02/24 20:27
APTT 70.2 Sec (23.4-35.0) H 08/03/24 21:45
Magnesium 1.6 mg/dl (1.6-2.3) 08/06/24 03:30
Physical Exam
Constitutional: No acute distress and Comfortable
Cardiovascular: Pedal edema is absent, Rhythm/rate is irregular, S1S2 is normal and Murmur/rub/gallop absent
Respiratory: Respiratory effort normal and Lungs clear to auscul.
Neuro/Psych: AO x 3
Data Reviewed
-
Date of Service: August 06, 2024
Medical Decision Making: Reviewed Test Results, Independent Historian Assessment, Test Interpretation and Review of Case with other Provider
EKG: Tracing Personally Visualized and interpreted
Echo: Report Reviewed by me
Labs: Labs Reviewed by me
[2024-08-06] MEDS: LR 1000 IV ×2 (09:25→16:33)
[2024-08-06] MEDS: PROTONIX IV 40 MG IV (09:27)
[2024-08-06] MEDS: POTASSIUM PHOSPHATE 259.0909 MEQ IV (12:14)
--- NOTE | 2024-08-06 14:20 | PTCARENOTE ---
aaox3. afib on monitor. yung. vianey @ 100. k rider infusing. pt ambulated with assistance x2 to the b[facility]. call lopez in reach. will monitor.
[2024-08-06] MEDS: IMODIUM 2 MG PO ×2 (17:27→22:03)
--- NOTE | 2024-08-06 21:45 | W.PN.ONC2 ---
Today's Communication / Plan
-
No plans to replace the port, not needed for the remainder of adjuvant therapy.
Counts stable.
Needs diff with daily CBC.
Impression
Impression
Medullary breast cancer, stage T2 N0 M0, HER+, HER2 3+, on adjuvant TCHP
Port infection complicated by bacteremia
Hypothyroidism
Atrial tachycardia
Plan
Plan
Port removed on 08/04
Last two cycles of chemo, if given, could be administered via peripheral IV. Taxotere can be uncomfortable by peripheral IV but could give Abraxane or taxol instead.
Herceptin and Perjeta are both Sub-Q and do not require port.
Would not replace port.
Plt count is slightly improving-Threshold for transfusion is plt <20-Consider restarting lower-dose of anticoagulant if patient remains stable w/o further hematemesis. Defer to Cardiology.
Since patient is neutropenic, consider empiric po vanco for C.diff. Defer to ID.
Needs diff with daily CBC
Trend temp curve-Sepsis management per primary team
Will continue to follow
Subjective/Objective
Chief Complaint
Medical Oncology follow-up of breast cancer, bacteremia from port infection
Subjective
Feeling better today.
Vital Signs:
Vital Signs
Temp Pulse Resp BP Pulse Ox
98.2 F 106 20 100/68 94
08/06/24 19:00 08/06/24 20:00 08/06/24 20:00 08/06/24 20:00 08/06/24 20:00
Lab Results:
Laboratory Data
WBC 3.2 10^3/uL (4.8-10.8) L 08/06/24 03:30
Hgb 8.5 g/dL (12.0-16.0) L 08/06/24 03:30
Plt Count 48 10^3/uL (130-400) L 08/06/24 03:30
PT 15.3 Sec (11.4-14.6) H 08/02/24 20:27
INR 1.18 08/02/24 20:27
APTT 70.2 Sec (23.4-35.0) H 08/03/24 21:45
eGFR > 60.00 08/06/24 03:30
Physical Exam
Awake, alert, nontoxic-appearing
HEENT: Moist Mucous Membranes; No Jaundice
Cardiology: Normal Sinus Rhythm, S1 and S2
Pulmonary: Clear; No Wheezes or Rales
GI: Soft; No Distended
Extremities: No C/C/E
Neuro: Non Focal
Review of Systems
Review of Systems
Constitutional: Reports Fatigue
[2024-08-06] MEDS: ATIVAN 0.5 MG PO (22:07)
[2024-08-07] VITALS (13 sets, daily range): BP systolic 92–124; BP diastolic 69–97
[2024-08-07] MEDS: LR 1000 IV (01:49)
--- NOTE | 2024-08-07 04:41 | PTCARENOTE ---
ax3 loose bm medicated with Imodium, afib controlled. bp on soft side- fluids per orders. plus one anasarca.
[2024-08-07 05:03] LABS: Hematocrit 24.5 % (37.0-47.0); Hemoglobin 8.7 g/dL (12.0-16.0); Mean Corp Hgb Conc. 35.5 g/dL (33.0-37.0); Mean Corpuscular Hgb 33.2 pg (27.0-31.0); Mean Corpuscular Volume 93.5 fL (81.0-99.0); Mean Platelet Volume 13.5 fL (7.4-10.4); Platelet Count 78 10^3/uL (130-400); Red Blood Cell Count 2.62 10^6/uL (4.20-5.40); Red Cell Dist. Width 17.6 % (11.5-14.5); White Blood Cell Count 7.9 10^3/uL (4.8-10.8)
[2024-08-07 05:19] LABS: Blood Urea Nitrogen 11 mg/dl (7-17); Calcium 7.5 mg/dl (8.4-10.2); Carbon Dioxide 20 mmol/L (22-30); Chloride 111 mmol/L (98-107); Estimated Creatinine Clearance 76 ml/min; Glucose 95 mg/dl (70-99); Magnesium 1.8 mg/dl (1.6-2.3); Phosphorus 2.6 mg/dl (2.5-4.5); Sodium 135 mmol/L (135-145); eGFR > 60.00
--- NOTE | 2024-08-07 05:31 | PTCARENOTE ---
sock turner ordered 40 meq k rider for k of 3.0
[2024-08-07 05:45] LABS: % Basophils 0.6 % (0-2); % Immature Granulocytes 1.2 % (0-0.5); % Monocytes 4.5 % (1.7-9.3); % Neutrophils 73.7 % (42.2-75.2); Absolute Basophils 0.1 10^3/uL (0-0.2); Absolute Immature Granulocytes 0.1 10^3/uL (0-0.05); Absolute Lymphocytes 1.5 10^3/uL (1.2-3.4); Absolute Monocytes 0.4 10^3/uL (0.1-0.6); Absolute Neutrophils 5.8 10^3/uL (1.4-6.5); Nucleated Red Blood Cells % 0.3 %
[2024-08-07] MEDS: KCL 270 MEQ IV ×3 (06:00→22:25)
[2024-08-07] MEDS: SYNTHROID 50 MCG PO (06:08)
[2024-08-07] MEDS: VANCOCIN 275 MG IV (06:08)
[2024-08-07] MEDS: CALCIUM GLUCONATE 100 IV (08:47)
[2024-08-07] MEDS: PROTONIX IV 40 MG IV (08:55)
[2024-08-07] MEDS: NSS (PRESERVATIVE FREE) 10 ML IV (08:55)
[2024-08-07] MEDS: CARDIZEM CD 240 MG PO (08:56)
[2024-08-07] MEDS: VISBIOME 1 CAP PO (08:56)
[2024-08-07] MEDS: PACERONE 400 MG PO ×2 (08:56→21:34)
[2024-08-07] MEDS: CLARITIN 10 MG PO (08:56)
[2024-08-07] MEDS: FIRVANQ 125 MG PO (08:58)
--- NOTE | 2024-08-07 09:11 | W.PN.ID1 ---
Date of Service
Date of Service: August 07, 2024
Today's Communication
Continue antibiotics.
Assessment / Plan
# Sustained Staphylococcus aureus (MSSA) bacteremia
# Catheter associated bloodstream infection from port, present on admission.
. 08/04 s/p port removed, cath tip S. aureus
# s/p Fever resolved
# Coffee-ground emesis
# Diarrhea due to chemo
# New onset Afib
# R Breast cancer on adjuvant chemotherapy
# Neutropenia and Pancytopenia due to chemotherapy
# Multiple antibiotic allergies including penicillin, cephalosporins, sulfa, cipro
-TTE (08/03/24): no valvular disease
- Continue to repeat blood cultures x 2 until at least 2 sets neg.
- Despite port removal, blood cultures remain positive
--> Recommend DONNELL this week.
--> Given ongoing bacteremia, transition to daptomycin 1 g IV every 24 hours
- check baseline CPK in am
- Follow temps/wbc
- Stool C. diff Ag+, toxin neg = colonization
- Continue prophylactic Vancomycin 125mg po daily while on systemic abx.
����������������������������������������������������������
Chief Complaint
-: Clinical Sepsis and Bacteremia
Subjective / Review of Systems
Review of Systems: No Fever and No Chills
Vital Signs / Physical Exam
Vital Signs
Vital Signs
Temp Pulse Resp BP Pulse Ox
98.2 F 135 25 116/87 90
08/07/24 06:40 08/07/24 08:56 08/07/24 06:11 08/07/24 08:56 08/07/24 06:11
Physical Exam
Constitutional: No Acute Distress, Comfortable and Chronically Ill
Eyes: No Conjunctival Hemorrhage and Sclera Anicteric
Cardiovascular: S1/S2; Negative S3/S4
Pulmonary: Clear and Non Labored
Gastrointestinal: Soft, Non Tender, Non Distended and Normal Bowel Sounds
Extremities: Negative Edema
Wound: Other (Prior port site without tenderness)
Neurological: AO x 3
Objective Data
Lab Data
Lab Results
08/07/24 04:09
08/07/24 04:09
PT 15.3 Sec (11.4-14.6) H 08/02/24 20:27
INR 1.18 08/02/24 20:27
APTT 70.2 Sec (23.4-35.0) H 08/03/24 21:45
Estimated Creat Clear 76 ml/min 08/07/24 04:09
Lactic Acid Cancelled 08/03/24 12:03
Total Bilirubin 1.2 mg/dl (0.2-1.3) 08/02/24 20:27
AST 31 U/L (14-36) 08/02/24 20:27
ALT 19 U/L (0-35) 08/02/24 20:27
Alkaline Phosphatase 70 U/L (38-126) 08/02/24 20:27
Most recent labs reviewed.
Micro Results:
08/05/24 09:33 Blood Culture - Preliminary
Blood/Venous S aureus-Methicillin Sensitive
Gram Stain - Preliminary
08/05/24 09:21 Blood Culture - Preliminary
Blood/Venous S aureus-Methicillin Sensitive
Gram Stain - Preliminary
08/06/24 03:49 Blood Culture - Preliminary
Blood/Venous Positive culture in progress
Gram Stain - Preliminary
08/06/24 03:30 Blood Culture - Preliminary
Blood/Venous Positive culture in progress
Gram Stain - Preliminary
08/03/24 22:57 Salmonella/Shigella Culture - Final
Feces/Stool No Salmonella, Shigella, Aeromonas or Plesiomonas species
isolated.
Campylobacter Culture - Final
No Campylobacter species isolated.
Shiga Toxin Test - Pending
Stool Leukocytes - Final
08/04/24 08:18 Catheter Tip Culture - Final
Catheter Tip S aureus-Methicillin Sensitive
08/02/24 20:31 Blood Culture - Final
Blood/Venous S aureus-Methicillin Sensitive
Gram Stain - Final
08/03/24 21:45 Urine Culture - Final
Urine S aureus-Methicillin Sensitive
08/04/24 04:17 Blood Culture - Preliminary
Blood/Venous S aureus-Methicillin Sensitive
Gram Stain - Preliminary
08/04/24 04:17 Blood Culture - Preliminary
Blood/Venous S aureus-Methicillin Sensitive
Gram Stain - Preliminary
08/02/24 20:28 Urine Culture - Final
Urine S aureus-Methicillin Sensitive
08/02/24 20:27 Blood Culture - Final
Blood/Venous S aureus-Methicillin Sensitive
Gram Stain - Final
08/02/24 20:51 Blood Culture - Final
Blood/Venous S aureus-Methicillin Sensitive
Gram Stain - Final
08/03/24 22:57 C. difficile GDH Antigen & Toxins - Final
Feces/Stool C. difficile antigen positive, toxin negative.
Clostridium difficile present, but toxin not detected.
Patient may be a carrier, colonized with nontoxinogenic
strain or the level of toxin in sample is below detection
limits. This information should be used in conjunction with
the patient's clinical history.
- Final
Negative for Norovirus GI and GII.
08/02/24 20:39 Influenza Types A & B (DAHLIA) - Final
Nasal Swab Negative for Influenza A & B, NAAT
Negative results must be combined with clinical observations
and patient history.
Nucleic Acid Amplification test (NAAT)performed on the
[employer] platform.
08/02/24 CXR: Probable infectious/inflammatory pneumonitis.
--- NOTE | 2024-08-07 11:09 | W.PN.HOSP.TC ---
Addendum entered and electronically signed by Anup Luong, 08/07/24 14:11:
ID transitioned antibiotics from vancomycin to daptomycin due to persistent positivity on BCx
Addendum entered and electronically signed by Anup Luong, DO 08/07/24 11:14:
Repeat blood cultures positive. Plan for DONNELL this week to assess for IE
Original Note:
Today's Communication/Plan
-
Continue IV vancomycin and follow repeat cultures
Replete potassium and calcium
Start AC tomorrow with platelet count stable
Continue Imodium
Stop IV fluids
Assessment / Plan
Assessment / Plan
#MSSA bacteremia
#Sepsis secondary to chemotherapy port infection
#Allergy to cephalosporins
-2 sets of blood cultures positive for MSSA, s/p port removal here
-Currently unable to rule out endocarditis due to recurrent positivity to blood cultures
-Initially started on IV vancomycin, has allergy to cephalosporins and other antibiotic
-Remains hemodynamically stable off vasopressors, no fevers, leukopenia improving
-Continue IV vancomycin and follow third set of blood cultures
-If blood cultures repeat blood cultures positive will need DONNELL
-Continue to trend CBC and temperature curve
-Consider midodrine if blood pressure becomes soft
#Coffee-ground emesis
#Anemia of chronic disease
-1 episode of coffee-ground emesis while here, hemoglobin has since stabilized
-Was on IV heparin drip with thrombocytopenia at the time, blood counts now improving
-GI following, was started on IV PPI, remains on regular diet
-Continue to trend CBC and monitor for bleeding
-Continue with IV PPI with pantoprazole 40 mg daily
-If recurrent or hemoglobin downtrends may need EGD
-Hold anticoagulation until platelets improve
#New onset paroxysmal AF with RVR
#H/O SVT/AT
-Developed new onset AF, [id number] 3; s/p IV amiodarone and heparin drip
-Has been initiated on amiodarone load, remains on home diltiazem
-Initially on amio 200 twice daily, has been increased to 400 twice daily
-As of this morning remains in AF with heart rate low 100s, asymptomatic
-Continue amiodarone load and oral diltiazem
-Plan for DOAC when platelet count >50 consistently
#Pancytopenia
-Likely multifactorial with AOCD and new leukopenia/thrombocytopenia from bacteremia
-Less likely related to chemotherapy, per oncology has had fairly stable CBC after on previous sessions
-White count and platelets improving slowly with treatment of underlying sepsis
-Has not had absolute neutropenia, ANC consistently 0.6 or greater here
-Trend CBC with differential daily, continue neutropenic precautions
-Supportive transfusions for bleeding, platelet <10, hemoglobin <7
-Has improved as of 08/07, will DC neutropenic precaution
#NAGMA
#Hypokalemia
#Hypophosphatemia
#Hypomagnesemia
#Hypocalcemia
#Diarrhea from chemotherapy
-Suspect these findings are due to GI loss though cannot rule out RTA completely
-Has had persistent mild acidemia with hypokalemia despite repletion daily
-Infectious workup negative for diarrhea, started on Imodium with improvement
-Will transition IV normal saline to LR due to NAGMA
-Trend BMP/Mag/Phos and replete as needed
-Continue Imodium PRN
-F/U urine anion gap
#C. difficile colonization
-Currently on oral vancomycin per ID while on systemic antibiotics
-Likely can DC when antibiotic course complete
-Monitor bowel status
#Breast cancer s/p double lumpectomy
-Currently being treated for stage I, ER(+)/MT(-)/Her2(-) breast carcinoma
-Status post double lumpectomy currently on adjuvant chemoradiation
-Status post chemotherapy port removal due to above, oncology says no longer needed
-Will need to follow-up after discharge with oncologist to resume chemo and XRT
#Hypothyroidism
-Unclear etiology, home regimen includes levothyroxine supplementation
-No signs or symptoms of abnormal thyroid function here
Diet: Regular
DVT prophylaxis: SCDs
GI prophylaxis: IV PPI
CODE STATUS: Full code
Disposition: SNF when medically stable
Anticipated Discharge: > 48 hours
Subjective/Interval History
-
Date of Service: August 07, 2024
Seen and examined at bedside. No acute events reported overnight. Heart rate 120 to 130/min in AF though otherwise hemodynamically stable and afebrile on room air
Potassium remains low as is calcium. Platelets and WBC improving, hemoglobin stable. Repeat blood cultures remain negative
Patient denies any new complaints and states she feels well, diarrhea minimal
Objective Data
-
Labs:
Laboratory Results
08/07/24
04:09
WBC 7.9
Hgb 8.7 L
Hct 24.5 L
Plt Count 78 L D
Sodium 135
Potassium 3.0 L
Chloride 111 H
Carbon Dioxide 20 L
BUN 11
Creatinine 0.8
Glucose 95
Calcium 7.5 L
Vital Signs:
Vital Signs
Temp Pulse Resp BP Pulse Ox
98.2 F 135 25 116/87 90
08/07/24 06:40 08/07/24 08:56 08/07/24 06:11 08/07/24 08:56 08/07/24 06:11
I&O
08/06/24 08/07/24 08/08/24
06:59 06:59 06:59
Intake Total 1979 2450 / 2450
Output Total 650 / 650
Balance 1979 1800 / 1800
Review of Systems
-
History Source: Patient
All other systems: Reviewed and negative
Physical Exam
-
General: Well Developed, No Apparent Distress, Appears Chronically Ill and Obese
HEENT: Normocephalic, Atraumatic, Moist Mucous Membranes and Anicteric
Respiratory: Clear to Auscultation and Non Labored Respirations; Negative Accessory Resp Muscle Use
Cardiac: S1/S2, Irregular Rhythm and Tachycardic; Negative Murmur, Rub or Gallop
GI: Soft, Nontender, Nondistended and Normal Bowel Sounds
Musculoskeletal: No Clubbing, No Cyanosis and Other (Trace edema to the extremity)
Skin: Warm and Dry; Negative Rash or Jaundice
Neuro: AO x 3 and Nonfocal/Grossly Intact
Psych: Calm
Data Reviewed
-
Labs: Labs Reviewed by me and Discussed with Patient
[2024-08-07] MEDS: CUBICIN 20 MG IV (12:02)
--- NOTE | 2024-08-07 12:41 | W.PN.CD ---
Today's Communication / Plan
-
DONNELL tomorrow
Start AC
Recheck BMP. If hypokalemia resolved, give 40 mg IV Lasix
Impression / Plan
-
Card: Doran (for palps, AT/PSVT)
Sepsis due to MSSA bacteremia
- Suspected source is Chemo port with cath tip growing Staph aureus. Blood cultures remain positive as recently as 08/06/2024
- ID following. Continue antibiotics.
- TTE: Normal LVEF, no valvular disease
- DONNELL tomorrow to look for endocarditis. N.p.o. past midnight.
PAF, RVR
- AFib is NEW this admit. Likely due to sepsis
- Was in sinus most of 08/04/2024, went back into AFib RVR evening of 08/04/2024 => Amio increased to 400 BID => back in sinus on 08/07
- Continue dilt ER 240 a day and amiodarone 400 mg twice daily
- Resume Eliquis given plt >50. CM to zaman.
- [id number] score is 3 for age, female, HTN
Volume overload
- Likely due to IV fluids and several IV medications
- Recheck potassium. If hypokalemia improved, give 40 mg IV Lasix.
Pancytopenia
- Per oncology, etiology thought to be more likely ongoing infection then chemotherapy though both could be contributing
- Has not been thrombocytopenic in the past with chemo
- Hold AC as above
Sepsis, staph aureus, suspected lines sepsis
Breast Ca, on chemo
HTN
Hyponatremia, improving
Hx of PSVT (mechanism uncertain)
Subjective: No CV complaints. A-fib terminated at 11 AM.
Physical Exam
Vital Signs/Labs
Vital Signs
Temp Pulse Resp BP Pulse Ox
98.2 F 128 24 118/97 93
08/07/24 06:40 08/07/24 10:00 08/07/24 10:00 08/07/24 10:00 08/07/24 11:49
08/06/24 08/07/24 08/08/24
06:59 06:59 06:59
Actual Weight 188 lb 0.869 oz
08/07/24 04:09
08/07/24 04:09
PT 15.3 Sec (11.4-14.6) H 08/02/24 20:27
INR 1.18 08/02/24 20:27
APTT 70.2 Sec (23.4-35.0) H 08/03/24 21:45
Magnesium 1.8 mg/dl (1.6-2.3) 08/07/24 04:09
Physical Exam
Constitutional: No acute distress and Comfortable
Cardiovascular: Rhythm & rate is regular, Pedal edema present, S1S2 is normal and Murmur/rub/gallop absent
Respiratory: Respiratory effort normal and Crackles Present
Neuro/Psych: AO x 3
Data Reviewed
-
Date of Service: August 07, 2024
Medical Decision Making: Reviewed Test Results, Independent Historian Assessment, Test Interpretation and Review of Case with other Provider
EKG: Tracing Personally Visualized and interpreted
Echo: Report Reviewed by me
Labs: Labs Reviewed by me
[2024-08-07] MEDS: LR IV (14:16)
--- NOTE | 2024-08-07 15:01 | CM ---
CM following rte: discharge planning.
Reviewed pt's chart, met with pt. Pt's and sister in law at bedside.
CM consulted to check the zaman for Eliquis 5mg BID and Xarelto 20 mg daily. CM called [facility] to check the zaman for Eliquis 5mg BID and Xarelto 20 mg daily and per pharmacist, Both medications - $30.00 co-pay per month. prefer Eliquis.
Free 30 days trial Eliquis coupon with $10.00 monthly coupon given to pt's
CM will follow with discharge plan updates as hospitalization progresses
[2024-08-07 19:01] LABS: Glucose - Point of Care 161 mg/dl (70-99)
--- NOTE | 2024-08-07 19:37 | PTCARENOTE ---
Assumed care of patient at beginning of this shift from previous RN. Patient received K+ rider and calcium gluconate as per order. OOB to chair x2 person assistance. Patient tolerated sitting in chair for several hours. See worklist for full
assessment and vital signs; see Rapid note.
--- NOTE | 2024-08-07 19:39 | RR ---
A Rapid Response was called on this patient, please see Rapid Response form. Patient's notified this RN that patient could not see out of her L eye. This RN assessed patient: pupils equal and reactive b/l but patient not able to see anything
out of L eye. Patient assisted back to bed x 3 assist for safety. Rapid response was called. Patient incontinent of urine; she had been using purewick prior and incontinent. Blood sugar 161. Patient denied dizziness or headache. Able to move all
extremities equally with equal strength and equal sensation. Speech clear and oriented x3. and patient's friend in the room during rapid. Then then stated that patient had used a lash conditioner/serum about an hour prior to this episode.
Patient stated she has used this serum many times. Patient to CT scan with ICU RNs. Report given to oncoming RN.
[2024-08-07 19:53] LABS: 24 Hour Urine Total Volume Random mL; Chloride, Urine 191 mmol/L; Creatinine, Urine per Volume 69 mg/dL; Urine Collection Length Random hr
[2024-08-07] MEDS: KCL IV (21:34)
[2024-08-07] MEDS: ELIQUIS 5 MG PO (21:34)
--- NOTE | 2024-08-07 21:34 | W.PN.UPDATE ---
Update Note
Progress Note Update
Reviewed with Dr. Santos Sanchez Neuro fellow about diagnostic results post stroke alert. She is not a TNK candidate. Ophthalmology and general neuro consults recommended..
[2024-08-07] MEDS: ATIVAN 0.5 MG PO (22:10)
[2024-08-07 22:17] LABS: Blood Urea Nitrogen 11 mg/dl (7-17); Calcium 7.9 mg/dl (8.4-10.2); Carbon Dioxide 19 mmol/L (22-30); Chloride 111 mmol/L (98-107); Estimated Creatinine Clearance 67 ml/min; Glucose 120 mg/dl (70-99); Potassium 3.4 mmol/L (3.5-5.1); Sodium 135 mmol/L (135-145); eGFR > 60.00
--- NOTE | 2024-08-07 22:33 | W.PN.ONC2 ---
Today's Communication / Plan
-
Pt persistently bacteremic despite port removal, management as per ID.
Adjuvant systemic therapy on hold, may end up eliminating last two cycles of cytotoxic chemotherapy but continue HER2-directed therapy and start hormonal therapy as outpt.
Does not need a new port placed.
Impression
Impression
Medullary breast cancer, stage T2 N0 M0, HER+, HER2 3+, on adjuvant TCHP, intent of care curative
Port infection complicated by bacteremia
Hypothyroidism
Atrial tachycardia
Plan
Plan
Port removed on 08/04
Last two cycles of chemo, if given, could be administered via peripheral IV. Taxotere can be uncomfortable by peripheral IV but could give Abraxane or taxol instead.
Herceptin and Perjeta are both Sub-Q and do not require port.
Would not replace port.
Plt count significantly improved and adequate for anticoagulation - defer to Cardiology.
Neutropenia resolved.
Yesterday's culture reamin positive.
Subjective/Objective
Chief Complaint
Heme/Onc follow up of breast cancer, port infection
Subjective
Denies new complaint
Vital Signs:
Vital Signs
Temp Pulse Resp BP Pulse Ox
97.7 F 86 25 119/84 96
08/07/24 19:54 08/07/24 21:34 08/07/24 18:00 08/07/24 21:34 08/07/24 18:00
Lab Results:
Laboratory Data
WBC 7.9 10^3/uL (4.8-10.8) 08/07/24 04:09
Hgb 8.7 g/dL (12.0-16.0) L 08/07/24 04:09
Plt Count 78 10^3/uL (130-400) L D 08/07/24 04:09
PT 15.3 Sec (11.4-14.6) H 08/02/24 20:27
INR 1.18 08/02/24 20:27
APTT 70.2 Sec (23.4-35.0) H 08/03/24 21:45
eGFR > 60.00 08/07/24 21:56
Physical Exam
HEENT: Moist Mucous Membranes; No Jaundice
Cardiology: Normal Sinus Rhythm, S1 and S2
Pulmonary: Clear; No Wheezes
GI: Soft and Normal Bowel Sounds
Extremities: No C/C/E
Neuro: Non Focal
[2024-08-08] VITALS (26 sets, daily range): BP systolic 111–135; BP diastolic 64–94
--- NOTE | 2024-08-08 01:49 | PTCARENOTE ---
pt aaox3, able to make needs known. to stay in room overnight. 0.5 mg PO ativan given before bed per patient request. BMP drawn and sent. K 3.4, 20:00 K rider hung once labs resulted. Pt with multiple loose BMs throughout shift. Incontinent
bowel/bladder. NIHSS remains a 2 for vision loss in L eye. Vision loss unchanged since stroke alert at change of shift. VSS. Call lopez and belongings within reach. Care ongoing.
[2024-08-08 05:50] LABS: Hematocrit 25.1 % (37.0-47.0); Hemoglobin 8.9 g/dL (12.0-16.0); Mean Corp Hgb Conc. 35.5 g/dL (33.0-37.0); Mean Corpuscular Hgb 33.3 pg (27.0-31.0); Mean Platelet Volume 11.9 fL (7.4-10.4); Platelet Count 124 10^3/uL (130-400); Red Blood Cell Count 2.67 10^6/uL (4.20-5.40); Red Cell Dist. Width 17.3 % (11.5-14.5); White Blood Cell Count 12.5 10^3/uL (4.8-10.8)
[2024-08-08] MEDS: SYNTHROID 50 MCG PO (06:06)
[2024-08-08 06:10] LABS: Blood Urea Nitrogen 12 mg/dl (7-17); Calcium 8.2 mg/dl (8.4-10.2); Carbon Dioxide 20 mmol/L (22-30); Chloride 112 mmol/L (98-107); Creatine Phosphokinase 30 U/L (30-135); Estimated Creatinine Clearance 67 ml/min; Glucose 111 mg/dl (70-99); HDL Cholesterol 22 mg/dl; LDL Cholesterol, Calculated 49 mg/dl; Potassium 3.4 mmol/L (3.5-5.1); Sodium 138 mmol/L (135-145); Total Cholesterol 107 mg/dl (50-199); Triglyceride 181 mg/dl (10-149); Very Low Density Lipoprotein 36 mg/dl (0-30); eGFR > 60.00
--- NOTE | 2024-08-08 07:15 | CON.NEURO ---
Consultation
Order
Date of Consultation: 08/08/24
Requesting Provider: Rachel Watson CRNP
Reason for Consult: Blurred vision
Neurology Consultation Note.
HPI: This is a 64-year-old right-handed woman who presented to [facility] on August 02, 2024 and was found to have MSSA bacteremia, neutropenic fever, coffee-ground emesis and new onset of A-fib.
Neurology consultation was requested for evaluation and management of abnormal vision.
According to the patient she developed an acute painless loss of vision ('went black') in the left eye yesterday around 6 PM. She states that her right side has been weak since the admission. She denies any associated eye pain, headache, sensory
deficits, change in speech or swallowing. The patient's confirms observing the right arm weakness since her admission.
Review of vital signs was notable for hypotension down to 82/62 on 08/04/2024 and 82/56 on 08/22/2024 and fever of 38.1 Con 08/02/2024 and 38.8C on 08/03/2024.
Labs: WBCs�12.5, hemoglobin�8.9, platelets�124, LDL�49
CT head wo contrast�no acute abnormalities.
CTA head/neck (08/07/2024)�no evidence of hemodynamically significant stenosis.
Ms. Dsouza was started on Eliquis on 08/07/2024. Systemic anticoagulation for A-fib was delayed due to thrombocytopenia.
DONNELL(08/08/2024) There is a mobile, spherical vegetation (measuring 0.9 x 0.7 x 0.7 cm) attached to the base of the P1/P2 segment at the posterior mitral valve leaflet.
PMH: SVT/atrial tachycardia, R Medullary breast cancer, HTN, hypothyroidism, h/o parotid gland pleomorphic adenoma, vitamin D deficiency
PSH: Bl lumpectomy, cholecystectomy, partial hysterectomy, left parotid mass excision, sacrocolpopexy, finger tumor radical resection
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
FH: Mother�asthma
All: Sulfas, penicillins, Cipro, cephalosporins,
ROS: Constitutional: Negative. Negative for chills, fever and unexpected weight change.
HENT: Positive for visual loss on the left, negative for eye pain
Eyes: Negative. Negative for photophobia, pain and visual disturbance.
Respiratory: Negative for cough, choking and shortness of breath.
Cardiovascular: Negative for chest pain, palpitations and leg swelling.
Gastrointestinal: Negative for abdominal pain and vomiting.
Musculoskeletal: Negative for back pain, gait problem, neck pain and neck stiffness.
Skin: Negative for rash.
Allergic/Immunologic: Negative. Negative for immunocompromised state.
Neurological: Negative for headache, tingling or numbness in arms and legs, difficulty swallowing.
Psychiatric/Behavioral: Positive for confusion
General: Well developed. In no acute distress.
Cardio: irregular rate and rhythm. Extremities are without cyanosis or edema.
Neuro:
Mental Status: Alert, oriented to person, place, and date. Impaired attention and comprehension. Follows simple requests. Nonfluent. No clear hemineglect
Cranial Nerves: No light perception on the left . Pupils are equally round and reactive to light. EOMs full. Visual patrick full to confrontation on the R. L ptosis. No nystagmus. Face symmetric. Impaired hearing AU. The palate elevated well.
SCMs and traps 5/5. Tongue midline. No dysarthria.
Motor: Right pronator and leg drift
Reflexes: Negative grasp bilaterally
Sensory: Absent vibration at the toes
Coordination: No dysmetria on the left
Gait: deferred
Assessment and Plan:
I. Acute/subacute bihemispheric embolic stroke. Likely etiology�cardioembolic.
Patients with IE are at risk for ICH from hemorrhagic transformation of an embolic stroke, rupture of a mycotic aneurysm, or septic arteritis with hemorrhage from vessel wall erosions.
The available limited data suggest that neither anticoagulation therapy nor Aspirin reduce the risk of embolism in patients with IE. Anticoagulant or antiplatelet therapy is not indicated to reduce the risk of thromboembolic complications of IE.
II. Mitral valve vegetation.
III. PA A-Fib. [id number] score is 3
IV. Multifactorial encephalopathy (vascular, infectious)
V. Distal symmetric polyneuropathy affecting lower extremities.
-Continue Telemetry monitoring
-Start ASA 81 mg QD. No indications for statin therapy
-Please hold systemic anticoagulation
-Brain MRI with and without celi
-Cardiac surgery consult
-PT.
-DVT prophylaxis.
-Case was discussed with patient's spouse present at bedside.
I personally reviewed all radiology and labs along with past medical records pertinent to current medical problems. Total time spent in patient care is 65 minutes.
Thank you for allowing us to participate in the care of this patient. We will continue to follow. Please do not hesitate to contact us with any questions or concerns.
Subjective/Objective
Subjective Data
Date of Service: August 08, 2024
Objective Data
Vital Signs
Temp Pulse Resp BP Pulse Ox
36.8 C 88 22 127/87 95
08/08/24 03:54 08/08/24 06:00 08/08/24 06:00 08/08/24 06:00 08/08/24 06:00
Lab Results
08/08/24 05:31
08/08/24 05:31
PT 15.3 Sec (11.4-14.6) H 08/02/24 20:27
INR 1.18 08/02/24 20:27
APTT 70.2 Sec (23.4-35.0) H 08/03/24 21:45
Sodium 138 mmol/L (135-145) 08/08/24 05:31
Potassium 3.4 mmol/L (3.5-5.1) L 08/08/24 05:31
BUN 12 mg/dl (7-17) 08/08/24 05:31
Glucose 111 mg/dl (70-99) H 08/08/24 05:31
Calcium 8.2 mg/dl (8.4-10.2) L 08/08/24 05:31
Phosphorus 2.6 mg/dl (2.5-4.5) 08/07/24 04:09
LDL Cholesterol, Calc 49 mg/dl 08/08/24 05:31
Patient Allergies
apricot (Apricot) Allergy (Verified 09/01/15 14:39)
Hives
blueberry Allergy (Verified 08/03/24 21:44)
Hives
cefprozil (From Cefzil) Allergy (Verified 09/01/15 14:39)
Hives
Cephalosporins Allergy (Verified 05/24/24 10:58)
Unknown
ciprofloxacin (From Cipro) Allergy (Verified 05/24/24 10:58)
Unknown
dextromethorphan (From [place] DMT) Allergy (Verified 05/24/24 10:58)
Unknown
Penicillins Allergy (Verified 09/01/15 14:39)
Hives
pyrilamine (From [place] DMT) Allergy (Verified 05/24/24 10:58)
Unknown
scallops Allergy (Verified 05/24/24 11:02)
Unknown
Sulfa (Sulfonamide Antibiotics) (Sulfa(Sulfonamide Antibiotics)) Allergy (Verified 09/01/15 14:39)
Hives
sulfamethoxazole (From Bactrim) Allergy (Verified 09/01/15 14:39)
Hives
trimethoprim (From Bactrim) Allergy (Verified 09/01/15 14:39)
Hives
venom-honey bee Allergy (Verified 08/03/24 21:44)
Hives
Medications
-
Active Medications
Generic Name Dose Route Start Last Admin
Trade Name Freq PRN Reason Stop Dose Admin
Acetaminophen 650 mg 08/03/24 00:03 08/05/24 21:41
Acetaminophen 325 Mg Tablet PO 08/31/24 00:02 650 mg
Q4HPRN PRN Administration
WYLIE/mild pain/temp > 100.4 F
Acetaminophen 650 mg 08/03/24 00:03
Acetaminophen 650 Mg Rectal Suppository RECTAL 08/31/24 00:02
Q4HPRN PRN
WYLIE/ mild pain/ temp >/= 100.4F
Amiodarone HCl 400 mg 08/05/24 20:00 08/07/24 21:34
Amiodarone 200 Mg Tablet PO 08/31/24 19:59 400 mg
BID SAM Administration
Apixaban 5 mg 08/07/24 20:00 08/07/24 21:34
Apixaban (Eliquis) 5 Mg Tablet PO 09/04/24 19:59 5 mg
BID SAM Administration
Diltiazem HCl 240 mg 08/04/24 08:00 08/07/24 08:56
Diltiazem 240 Mg Extended Release (24 H) Capsule PO 09/01/24 07:59 240 mg
DAILY SAM Administration
Heparin Sodium 25,000 units in 250 mls @ 0 mls/hr 08/02/24 21:45 08/03/24 20:35
Heparin 79462 Units/250 Ml IV 250 mls
On Hold: 08/03/24 21:45 PER PROTOCOL SAM Administration
Protocol
Per Protocol
Daptomycin 1,000 mg/ Device 20 mls @ 0 mls/hr 08/07/24 10:00 08/07/24 12:02
IV 20 mls
Q24H SAM Administration
As Directed
Lactobacillus/Bifidobacterium 1 cap 08/05/24 08:00 08/07/24 08:56
Lactobac/Bifidobac (Visbiome) PO 09/02/24 07:59 1 cap
DAILY SAM Administration
Levothyroxine Sodium 50 mcg 08/03/24 06:00 08/08/24 06:06
Levothyroxine 50 Mcg Tablet PO 08/31/24 05:59 50 mcg
DAILY @ 0600 SAM Administration
Loperamide HCl 2 mg 08/05/24 08:20 08/06/24 22:03
Loperamide 2 Mg Capsule PO 09/02/24 08:19 2 mg
Q4HPRN PRN Administration
diarrhea
Loratadine 10 mg 08/03/24 08:00 08/07/24 08:56
Loratadine 10 Mg Tablet PO 08/31/24 07:59 10 mg
DAILY SAM Administration
Lorazepam 0.5 mg 08/03/24 00:03 08/07/24 22:10
Lorazepam 0.5 Mg Tablet PO 08/31/24 00:02 0.5 mg
DAILYPRN PRN Administration
anxiety
Metoprolol Tartrate 5 mg 08/04/24 20:45 08/04/24 20:56
Metoprolol 5 Mg/5 Ml Vial IV 09/01/24 20:44 5 mg
ONCE PRN PRN Administration
HR>120 AND SBP>100
Ondansetron HCl 4 mg 08/03/24 00:03 08/03/24 21:50
Ondansetron 4 Mg/2 Ml Vial IV 08/31/24 00:02 4 mg
Q6HPRN PRN Administration
NAUSEA/VOMITING
Pantoprazole Sodium 40 mg 08/04/24 08:00 08/07/24 08:55
Pantoprazole Sodium 40 Mg/10 Ml Vial IV 09/01/24 07:59 40 mg
DAILY SAM Administration
Sodium Chloride 0 flush 08/02/24 23:00
Sodium Chloride 0.9% (Flush) Syringe IV 08/30/24 22:59
PER PROTOCOL SAM
Sodium Chloride 10 ml 08/04/24 08:00 08/07/24 08:55
Sodium Chloride 0.9% (Preservative Free) 10 Ml Vial IV 09/01/24 07:59 10 ml
DAILY SAM Administration
Home Medications
�Medication �Instructions �Recorded
lorazepam 0.5 mg tablet 0.5 mg PO DAILYPRN PRN anxiety 11/03/11
cyclobenzaprine 5 mg tablet 5 mg PO HS PRN muscles spasm 05/24/24
diltiazem HCl 240 mg 240 mg PO DAILY Heart 05/24/24
capsule,extended release 24 hr Disease/Condition
(Cardizem CD)
levothyroxine 50 mcg tablet 50 mcg PO DAILY Thyroid 05/24/24
loratadine 10 mg tablet 10 mg PO DAILY Allergies 05/24/24
naproxen 250 mg tablet 250 mg PO BID PRN mild pain 05/24/24
Vital Signs and Labs
-
Vital Signs and Labs:
Vital Signs
Temp Pulse Resp BP Pulse Ox
36.8 C 88 22 127/87 95
08/08/24 03:54 08/08/24 06:00 08/08/24 06:00 08/08/24 06:00 08/08/24 06:00
Lab Results
08/08/24 05:31
08/08/24 05:31
PT 15.3 Sec (11.4-14.6) H 08/02/24 20:27
INR 1.18 08/02/24 20:27
APTT 70.2 Sec (23.4-35.0) H 08/03/24 21:45
Sodium 138 mmol/L (135-145) 08/08/24 05:31
Potassium 3.4 mmol/L (3.5-5.1) L 08/08/24 05:31
BUN 12 mg/dl (7-17) 08/08/24 05:31
Glucose 111 mg/dl (70-99) H 08/08/24 05:31
Calcium 8.2 mg/dl (8.4-10.2) L 08/08/24 05:31
Phosphorus 2.6 mg/dl (2.5-4.5) 08/07/24 04:09
LDL Cholesterol, Calc 49 mg/dl 08/08/24 05:31
Medications
-
Medications:
Generic Name Dose Route Start Last Admin
Trade Name Freq PRN Reason Stop Dose Admin
Acetaminophen 650 mg 08/03/24 00:03 08/05/24 21:41
Acetaminophen 325 Mg Tablet PO 08/31/24 00:02 650 mg
Q4HPRN PRN Administration
WYLIE/mild pain/temp > 100.4 F
Acetaminophen 650 mg 08/03/24 00:03
Acetaminophen 650 Mg Rectal Suppository RECTAL 08/31/24 00:02
Q4HPRN PRN
WYLIE/ mild pain/ temp >/= 100.4F
Amiodarone HCl 400 mg 08/05/24 20:00 08/07/24 21:34
Amiodarone 200 Mg Tablet PO 08/31/24 19:59 400 mg
BID SAM Administration
Apixaban 5 mg 08/07/24 20:00 08/07/24 21:34
Apixaban (Eliquis) 5 Mg Tablet PO 09/04/24 19:59 5 mg
BID SAM Administration
Diltiazem HCl 240 mg 08/04/24 08:00 08/07/24 08:56
Diltiazem 240 Mg Extended Release (24 H) Capsule PO 09/01/24 07:59 240 mg
DAILY SAM Administration
Heparin Sodium 25,000 units in 250 mls @ 0 mls/hr 08/02/24 21:45 08/03/24 20:35
Heparin 23928 Units/250 Ml IV 250 mls
On Hold: 08/03/24 21:45 PER PROTOCOL SAM Administration
Protocol
Per Protocol
Daptomycin 1,000 mg/ Device 20 mls @ 0 mls/hr 08/07/24 10:00 08/07/24 12:02
IV 20 mls
Q24H SAM Administration
As Directed
Lactobacillus/Bifidobacterium 1 cap 08/05/24 08:00 08/07/24 08:56
Lactobac/Bifidobac (Visbiome) PO 09/02/24 07:59 1 cap
DAILY SAM Administration
Levothyroxine Sodium 50 mcg 08/03/24 06:00 08/08/24 06:06
Levothyroxine 50 Mcg Tablet PO 08/31/24 05:59 50 mcg
DAILY @ 0600 SAM Administration
Loperamide HCl 2 mg 08/05/24 08:20 08/06/24 22:03
Loperamide 2 Mg Capsule PO 09/02/24 08:19 2 mg
Q4HPRN PRN Administration
diarrhea
Loratadine 10 mg 08/03/24 08:00 08/07/24 08:56
Loratadine 10 Mg Tablet PO 08/31/24 07:59 10 mg
DAILY SAM Administration
Lorazepam 0.5 mg 08/03/24 00:03 08/07/24 22:10
Lorazepam 0.5 Mg Tablet PO 08/31/24 00:02 0.5 mg
DAILYPRN PRN Administration
anxiety
Metoprolol Tartrate 5 mg 08/04/24 20:45 08/04/24 20:56
Metoprolol 5 Mg/5 Ml Vial IV 09/01/24 20:44 5 mg
ONCE PRN PRN Administration
HR>120 AND SBP>100
Ondansetron HCl 4 mg 08/03/24 00:03 08/03/24 21:50
Ondansetron 4 Mg/2 Ml Vial IV 08/31/24 00:02 4 mg
Q6HPRN PRN Administration
NAUSEA/VOMITING
Pantoprazole Sodium 40 mg 08/04/24 08:00 08/07/24 08:55
Pantoprazole Sodium 40 Mg/10 Ml Vial IV 09/01/24 07:59 40 mg
DAILY SAM Administration
Sodium Chloride 0 flush 08/02/24 23:00
Sodium Chloride 0.9% (Flush) Syringe IV 08/30/24 22:59
PER PROTOCOL SAM
Sodium Chloride 10 ml 08/04/24 08:00 08/07/24 08:55
Sodium Chloride 0.9% (Preservative Free) 10 Ml Vial IV 09/01/24 07:59 10 ml
DAILY SAM Administration
Home Medications
-
Home Medications
lorazepam 0.5 mg tablet 0.5 mg PO DAILYPRN PRN anxiety 11/03/11
cyclobenzaprine 5 mg tablet 5 mg PO HS PRN muscles spasm 05/24/24
diltiazem HCl 240 mg capsule,extended release 24 hr (Cardizem CD) 240 mg PO DAILY Heart Disease/Condition 05/24/24
levothyroxine 50 mcg tablet 50 mcg PO DAILY Thyroid 05/24/24
loratadine 10 mg tablet 10 mg PO DAILY Allergies 05/24/24
naproxen 250 mg tablet 250 mg PO BID PRN mild pain 05/24/24
--- NOTE | 2024-08-08 07:29 | W.PN.HOSP.TC ---
Addendum entered and electronically signed by Genevieve Carlton MD 08/08/24 15:01:
I saw and evaluated the patient independently. I reviewed the resident�s note and agree with findings and plan as documented by Dr. Miller.
GENERAL: well developed, well nourished, female in no apparent distress--eyes covered when I turned light on
HEENT: NC/AT
HEART: regular rate and rhythm, +S1, +S2--small diastolic murmur
LUNGS : clear to auscultation bilaterally
ABDOM: soft, nontender, nondistended, + bowel sounds
EXT: no cyanosis, clubbing-- 2+ LE edema bilaterally
NEUROLOGIC: grossly intact
Presumed Acute CVA likely cardioembolic (Acute painless loss of vision in the left eye 08/07/24 evening with Right-sided weakness more prominent in the lower extremity)--head CT neg, head and neck CTA neg--apprec neuro--await brain MRI--DONNELL shows
mitral valve vegetation--cont asa as per neuro--PT/OT
sepsis with MSSA bacteremia with mitral valve endocarditis--blood cultures remain positive despite removing port (tip also positive)--apprec ID--now on daptomycin--DONNELL 08/08/2024; LVEF 60-65%, There is a mobile, spherical vegetation (measuring 0.9 x
0.7 x 0.7 cm) attached to the base of the P1/P2 segment at the posterior mitral valve leaflet--CT surgery eval appreciated, tentative plan for surgery Thursday 08/10-- said if it is cancer, they don't want the surgery....told him, it looks
infective with persistently positive blood cultures
Coffee-ground emesis on Anemia of chronic disease--Was on IV heparin drip with thrombocytopenia at the time, blood counts now improving--apprec GI--cont IV PPI, no plans for intervention--
New onset paroxysmal AF with RVR--H/O SVT/AT--Developed new onset AF, [id number] 3; s/p IV amiodarone and heparin drip on hold--apprec cards--rate control--cont oral diltiazem
Pancytopenia--Likely multifactorial with anemia of chronic disease and new leukopenia/thrombocytopenia from bacteremia/sepsis--not neutropenic--Supportive transfusions for bleeding, platelet <10, hemoglobin <7
NAGMA/Hypokalemia/Hypophosphatemia/Hypomagnesemia/Hypocalcemia and Diarrhea from chemotherapy--C. diff antigen positive and toxin negative--imodium PRN
C. difficile colonization--Currently on oral vancomycin per ID while on systemic antibiotics
Breast cancer s/p double lumpectomy--Currently being treated for stage I, ER(+)/DE(-)/Her2(-) breast carcinoma--Status post double lumpectomy currently on adjuvant chemoradiation--Status post chemotherapy port removal due to above, oncology says no
longer needed--onc follow up post d/c
Hypothyroidism--Unclear etiology, home regimen includes levothyroxine supplementation--No signs or symptoms of abnormal thyroid function here
DVT proph--SCDs
CODE STATUS-- Full code
Original Note:
Today's Communication/Plan
-
;/
Assessment / Plan
Assessment / Plan
Assessment/plan
#Acute CVA likely embolic stroke etiology-Cardioembolic
-Acute painless loss of vision in the left eye yesterday evening
-Right-sided weakness more prominent in the lower extremity
-CTA head�no acute abnormalities
-CTA head/neck�no evidence of hemodynamically significant stenosis
-Neurology consulted, input appreciated
-Started on aspirin 81 mg daily
-Brain MRI pending
-PT/OT
#Mitral valve endocarditis
#MSSA bacteremia
#Sepsis secondary to chemotherapy port infection
#Allergy to cephalosporins
-2 sets of blood cultures positive for MSSA, s/p port removal
-Persistently positive blood culture
-Initially started on IV vancomycin, now transitioned to daptomycin
-DONNELL 08/08/2024; LVEF 60-65%, There is a mobile, spherical vegetation (measuring 0.9 x 0.7 x 0.7 cm) attached to the base of the P1/P2 segment at the posterior mitral valve leaflet.
-CT surgery consulted given DONNELL findings
-ID following
-Continue to trend CBC and temperature curve
#Coffee-ground emesis
#Anemia of chronic disease
-1 episode of coffee-ground emesis while here, hemoglobin has since stabilized
-Was on IV heparin drip with thrombocytopenia at the time, blood counts now improving
-GI following, was started on IV PPI, remains on regular diet
-Continue to trend CBC and monitor for bleeding
-Continue with IV PPI with pantoprazole 40 mg daily
-If recurrent or hemoglobin downtrends may need EGD
-Holding anticoagulation
#New onset paroxysmal AF with RVR
#H/O SVT/AT
-Developed new onset AF, [id number] 3; s/p IV amiodarone and heparin drip
-Has been initiated on amiodarone load, remains on home diltiazem
-Initially on amio 200 twice daily, has been increased to 400 twice daily
-Continue amiodarone and oral diltiazem
-Initially started on DOAC, but now holding for possible mitral valve surgery
#Pancytopenia
-Likely multifactorial with anemia of chronic disease and new leukopenia/thrombocytopenia from bacteremia
-Less likely related to chemotherapy, per oncology has had fairly stable CBC after on previous sessions
-White count and platelets improving slowly with treatment of underlying sepsis
-Has not had absolute neutropenia, ANC consistently 0.6 or greater here
-Trend CBC with differential daily, continue neutropenic precautions
-Supportive transfusions for bleeding, platelet <20, hemoglobin <7
-Has improved as of 08/07, will DC neutropenic precaution
#Non Anion Gap metabolic acidosis
#Hypokalemia
#Hypophosphatemia-resolved
#Hypomagnesemia
#Hypocalcemia- resolved
#Diarrhea from chemotherapy
-Suspect these findings are due to GI loss though cannot rule out RTA completely
-Has had persistent mild acidemia with hypokalemia despite repletion daily
-Infectious workup negative for diarrhea, started on Imodium with improvement
-Trend BMP/Mag/Phos and replete as needed
-Continue Imodium PRN
#C. difficile colonization
-C. difficile antigen positive, toxin negative
-s/p oral vancomycin, but now DC'd after 3 days
-Monitor bowel status
#Breast cancer s/p double lumpectomy
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
-Status post double lumpectomy currently on adjuvant chemoradiation
-Status post chemotherapy port removal due to above, oncology says no longer needed
-Will need to follow-up after discharge with oncologist to resume chemo and XRT
#Hypothyroidism
-Continue levothyroxine supplementation
-No signs or symptoms of abnormal thyroid function here
DVT prophylaxis: SCDs(holding Eliquis)
GI prophylaxis: IV PPI
CODE STATUS: Full code
Anticipated Discharge: > 48 hours
Subjective/Interval History
-
Patient seen and examined at bedside. Not in any acute distress. Overnight, episode of acute painless loss of vision in the left eye and right-sided weakness more prominent on the right lower extremity.
Objective Data
-
Labs:
Laboratory Results
08/07/24 08/08/24
21:56 05:31
WBC 12.5 H
Hgb 8.9 L
Hct 25.1 L
Plt Count 124 L D
Sodium 135 138
Potassium 3.4 L 3.4 L
Chloride 111 H 112 H
Carbon Dioxide 19 L 20 L
BUN 11 12
Creatinine 0.9 0.9
Glucose 120 H 111 H
Calcium 7.9 L 8.2 L
Vital Signs:
Vital Signs
Temp Pulse Resp BP Pulse Ox
98.3 F 88 22 127/87 95
08/08/24 03:54 08/08/24 06:00 08/08/24 06:00 08/08/24 06:00 08/08/24 06:00
I&O
08/07/24 08/08/24 08/09/24
06:59 06:59 06:59
Intake Total 2450 / 2450
Output Total 650 / 650 750 / 750
Balance 1800 / 1800 -750 / -750
Review of Systems
-
All other systems: Reviewed and negative (Except as documented)
Physical Exam
-
General: No Apparent Distress
Respiratory: Crackles (Bilateral bases); Negative Wheezes
Cardiac: Regular Rhythm and S1/S2
GI: Soft, Nontender, Nondistended and Normal Bowel Sounds
Musculoskeletal: Edema, Right Lower Extrem, Edema, Left Lower Extrem and Other (1/5 muscular strength RLE, 5/5 muscular strength LLE)
Neuro: Awake, Alert, Oriented and AO x 3
Psych: Calm
[2024-08-08 08:09] LABS: Absolute Neutrophils -Man Diff 11.1 10^3/uL (1.4-6.5); Band Neutrophils 0 % (0-3); Lymphocytes 4 % (20-51); Monocytes 5 % (2-9); Platelets Checked Yes; Segmented Neutrophils 89 % (42-75)
[2024-08-08 08:12] LABS: Normal RBC Morphology Yes
[2024-08-08 08:13] LABS: Total Cells Counted 100
--- NOTE | 2024-08-08 08:44 | PTCARENOTE ---
NPO since MN, incont of bm this am - cleansed then voided on bedpan prior to departing. 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
[2024-08-08] MEDS: KCL 270 MEQ IV (09:03)
[2024-08-08 09:07] LABS: Magnesium 1.7 mg/dl (1.6-2.3); Phosphorus 2.9 mg/dl (2.5-4.5)
[2024-08-08] MEDS: PACERONE 400 MG PO ×2 (10:49→19:52)
[2024-08-08] MEDS: ELIQUIS 5 MG PO (10:49)
[2024-08-08] MEDS: VISBIOME 1 CAP PO (10:49)
[2024-08-08] MEDS: CARDIZEM CD 240 MG PO (10:49)
[2024-08-08] MEDS: CLARITIN 10 MG PO (10:49)
[2024-08-08] MEDS: NSS (PRESERVATIVE FREE) 10 ML IV (10:50)
[2024-08-08] MEDS: PROTONIX IV 40 MG IV (10:50)
--- NOTE | 2024-08-08 10:55 | W.PN.CD ---
Addendum entered and electronically signed by Richmond Esteban MD 08/08/24 11:19:
Hold further anticoagulation for possible mitral valve surgery.
Original Note:
Today's Communication / Plan
-
Consult CT surgery for MV endocarditis
Neuro consult for concern for CVA -- figure out if we need to hold AC
Impression / Plan
-
Card: Espinoza (for palps, AT/PSVT)
Mitral valve endocarditis
Sepsis due to MSSA bacteremia
- Suspected source is Chemo port with cath tip growing Staph aureus. Blood cultures remain positive as recently as 08/07/2024
- DONNELL 08/08/2024: LVEF 60-65%, mobile vegetation attached to the base of P1/P2 segment of MV (0.9 x 0.7 x 0.7 cm), mild MR
- ID following. Continue antibiotics.
- CT surgery consult given concern for embolic phenomenon and persistently positive blood cultures
Concern for CVA
- L eye vision loss on 08/07 PM. Stroke alert called
- Head/neck CTA and brain CT unremarkable on 08/07
- Awaiting neuro consult
- May need to hold AC pending further testing
PAF, RVR
- AFib is NEW this admit. Likely due to sepsis
- Was in sinus most of 08/04/2024, went back into AFib RVR evening of 08/04/2024 => Amio increased to 400 BID => back in sinus on 08/07
- Continue dilt ER 240 a day and amiodarone 400 mg twice daily
- Resume Eliquis given plt >50. $30 per month.
- [id number] score is 3 for age, female, HTN
Volume overload
- Likely due to IV fluids and several IV medications
- 40mg IV Lasix today
Pancytopenia
- Per oncology, etiology thought to be more likely ongoing infection then chemotherapy though both could be contributing
- Has not been thrombocytopenic in the past with chemo
- Back on AC as above
Breast Ca, on chemo
HTN
Hyponatremia, improving
Hx of PSVT (mechanism uncertain)
Subjective: Last night she experienced an episode of vision loss in her left eye. Stroke alert was called. Imaging including brain CT and head/neck CTA were unremarkable. Neurology was consulted. Today her visual loss persists and she has light
sensitivity.
Physical Exam
Vital Signs/Labs
Vital Signs
Temp Pulse Resp BP Pulse Ox
98.1 F 88 22 127/87 95
08/08/24 07:20 08/08/24 06:00 08/08/24 06:00 08/08/24 06:00 08/08/24 06:00
08/08/24 05:31
08/08/24 05:31
PT 15.3 Sec (11.4-14.6) H 08/02/24 20:27
INR 1.18 08/02/24 20:27
APTT 70.2 Sec (23.4-35.0) H 08/03/24 21:45
Magnesium 1.7 mg/dl (1.6-2.3) 08/08/24 05:31
Triglycerides 181 mg/dl (10-149) H 08/08/24 05:31
LDL Cholesterol, Calc 49 mg/dl 08/08/24 05:31
VLDL Cholesterol, Calc 36 mg/dl (0-30) H 08/08/24 05:31
HDL Cholesterol 22 mg/dl 08/08/24 05:31
Physical Exam
Constitutional: No acute distress (sensitive to light, wearing mask over eyes)
Cardiovascular: Rhythm & rate is regular, Pedal edema present, S1S2 is normal and Murmur/rub/gallop absent
Respiratory: Respiratory effort normal and Crackles Present
Data Reviewed
-
Date of Service: August 08, 2024
Medical Decision Making: Reviewed Test Results, Independent Historian Assessment, Test Interpretation and Review of Case with other Provider
EKG: Tracing Personally Visualized and interpreted
Echo: Tracing Personally Visualized and interpreted and Report Reviewed by me
X-Ray/CT/US/MRI/NUC/PET: Report Reviewed by me
Labs: Labs Reviewed by me
[2024-08-08] MEDS: CUBICIN 20 MG IV (11:00)
--- NOTE | 2024-08-08 11:29 | CONSULT.CT ---
Consultation
-
Date/Time Consultation Requested: 08/08/24
Date/Time Consultation Performed: 08/08/24
Requesting Provider: Eulalia
Performing Provider: Dacia Muller PA-C for Dr. Clint Brian
Reason for Consultation: MV endocarditis
Patient History
Physicians
Family Physician: Colton Rodriguez
Inpatient Web Project Manager: Eulalia
History of Present Illness
Patient is a 64-year-old female with past medical history of SVT/atrial tach, hypertension, hyperlipidemia, R breast cancer s/p lumpectomy 02/2024 and now undergoing adjuvant chemotherapy who presented to [facility] with weakness and reduced
responsiveness. Upon admission she was diagnosed with MSSA bacteremia, sepsis suspected to be related to infected port site. She has been on IV antibiotics per infectious disease since admission, now on IV daptomycin since 08/07. Echo on 08/03
demonstrated normal LV function without valve dysfunction or vegetation. Due to persistent blood cultures DONNELL was done this morning which demonstrated 0.7 x 0.9cm attached to the MV leaflet with mild MR & normal LV function. Unfortunately patient
experienced painless vision loss of her left eye last evening which is likely an acute embolic infarct from her MV IE in addition to the R sided weakness she was feeling on admission. Pt also carries a new dx of paroxysmal atrial fibrillation with
RVR which has occurred since admission. CT surgery has been consulted for MV endocarditis.
Past Medical History
Hypertension
Hyperlipidemia
hypothyroidism
SVT/Atach
R breast cancer (dx 01/2024) s/p lumpectomy 02/2024 & now undergoing adjuvant chemotherapy
Past Surgical History
R breast lumpectomy 02/2024
hx cholecystectomy
hx partial hysterectomy
hx Left parotid mass excision
Family History
Family Medical History: Other (no known FH of CAD)
Social History
Alcohol: None
Drug: None
Tobacco: Former Smoker (remote as a teenager)
Personal:
Living: With Spouse
Allergies
Allergy/AdvReac Type Severity Reaction Status Date / Time
apricot (Apricot) Allergy Hives Verified 09/01/15 14:39
blueberry Allergy Hives Verified 08/03/24 21:44
cefprozil (From Cefzil) Allergy Hives Verified 09/01/15 14:39
Cephalosporins Allergy Unknown Verified 05/24/24 10:58
ciprofloxacin (From Cipro) Allergy Unknown Verified 05/24/24 10:58
dextromethorphan (From Allergy Unknown Verified 05/24/24 10:58
[place] DMT)
Penicillins Allergy Hives Verified 09/01/15 14:39
pyrilamine (From [place] DMT) Allergy Unknown Verified 05/24/24 10:58
scallops Allergy Unknown Verified 05/24/24 11:02
Sulfa (Sulfonamide Allergy Hives Verified 09/01/15 14:39
Antibiotics)
(Sulfa(Sulfonamide
Antibiotics))
sulfamethoxazole (From Allergy Hives Verified 09/01/15 14:39
Bactrim)
trimethoprim (From Bactrim) Allergy Hives Verified 09/01/15 14:39
venom-honey bee Allergy Hives Verified 08/03/24 21:44
Home Medications
�Medication �Instructions �Recorded �Confirmed �Type
lorazepam 0.5 mg tablet 0.5 mg PO DAILYPRN PRN anxiety 11/03/11 08/05/24 History
cyclobenzaprine 5 mg tablet 5 mg PO HS PRN muscles spasm 05/24/24 08/05/24 History
diltiazem HCl 240 mg 240 mg PO DAILY Heart 05/24/24 08/05/24 History
capsule,extended release 24 hr Disease/Condition
(Cardizem CD)
levothyroxine 50 mcg tablet 50 mcg PO DAILY Thyroid 05/24/24 08/05/24 History
loratadine 10 mg tablet 10 mg PO DAILY Allergies 05/24/24 08/05/24 History
naproxen 250 mg tablet 250 mg PO BID PRN mild pain 05/24/24 08/05/24 History
Review of Systems
-
History Source: Patient
General: Reports Fatigue
HEENT: Reports Visual Changes (L vision loss unchanged)
Respiratory: Reports No Symptoms
Cardiac: Reports No Symptoms
Abdomen/GI: Reports Diarrhea (typical for her post chemo tx)
: Reports No Symptoms
Musculoskeletal: Reports No Symptoms
Skin: Reports No Symptoms
Neurological: Reports CVA
Vascular: Reports No Symptoms
Physical Exam
Vital Signs
Temp 98.1 F 08/08/24 07:20
Temp route: Oral 08/08/24 07:20
Pulse 88 08/08/24 06:00
Rhythm: Atrial fibrillation 08/07/24 21:31
With- Sinus tachycardia 08/03/24 20:01
Resp Rate 22 08/08/24 06:00
Blood pressure 127/87 08/08/24 06:00
Blood pressure extremity used: Left upper arm 08/04/24 17:01
Position: Lying 08/04/24 17:01
MAP (cuff-Maggie Monitor) 97 08/08/24 06:00
SaO2 95 08/08/24 06:00
Nasal Cannula flow liters per minute 2 08/04/24 15:03
Oxygen Mode of Delivery Room air 08/07/24 23:48
Pulse Ox at Rest 95 08/05/24 13:00
Can the patient verbally communicate their pain? Yes 08/07/24 21:31
Pain scale rating: Asleep 08/05/24 16:07
Actual Weight 85.3 kg 08/06/24 02:54
Body Mass Index (BMI) 31.3 08/06/24 02:54
Supine- Blood Pressure 115/70 08/05/24 13:00
Supine- Pulse 108 08/05/24 13:00
Heart rate after activity 143 08/05/24 13:00
Blood pressure after activity 96/68 08/05/24 13:00
Oxygen Saturation with Activity 93 08/04/24 15:03
Labs
08/08/24 05:31
08/08/24 05:31
PT 15.3 Sec (11.4-14.6) H 08/02/24 20:27
APTT 70.2 Sec (23.4-35.0) H 08/03/24 21:45
Urinalysis
Urine Color Yellow 08/03/24 21:45
Urine Clarity Slightly cloudy (Clear) 08/03/24 21:45
Urine pH 6.5 (5.0-9.0) 08/03/24 21:45
Ur Specific [place] 1.015 (<1.030) 08/03/24 21:45
Urine Ketones Negative (Negative) 08/03/24 21:45
Ur Occult Blood Reflex 4+ (Negative) A 08/03/24 21:45
Urine Bilirubin Negative (Negative) 08/03/24 21:45
Leukocyte Esterase Rfl 1+ (Negative) A 08/03/24 21:45
Urine RBC 30-40 /HPF (0-2) A 08/03/24 21:45
Urine WBC (Reflex) 26-30 /HPF (0-5) A 08/03/24 21:45
Ur Squamous Epith Cells 0-2 /LPF (Few) 08/03/24 21:45
Amorphous Crystals Seen 08/03/24 21:45
Urine Bacteria (Reflex) Many (Negative) A 08/03/24 21:45
Urine Glucose 2+ (Negative) A 08/03/24 21:45
Urine Albumin (Reflex) 3+ (Neg - Trace) A 08/03/24 21:45
Diagnostic Studies
Procedure Date: 08/08/24
CONCLUSIONS
Normal biventricular systolic function without regional wall motion abnormality. LVEF 60-65%. There is a mobile, spherical vegetation (measuring 0.9 x 0.7 x 0.7 cm) attached to the base of the P1/P2 segment at the posterior mitral valve leaflet.
Mild mitral regurgitation. No other valvular involvement of endocarditis.
Exam
General: Well Developed, Well Nourished and Other (somnolent, but appropriate)
HEENT: Normocephalic and Anicteric
Respiratory: Clear; Negative Wheezes, Crackles or Rhonchi
Cardiac: Regular Rhythm; Negative Murmur, Rub or Gallop
GI: Soft and Non Tender
Rectal: Deferred by Provider
Skin: Warm and Dry
Extremities: Lower Level Edema (trace) and Pulses (B/l upper & lower distal pulses 2+)
Lymph: Lymphadenopathy
Psych: Calm
Assessment / Plan
-
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
new atrial fibrillation, started on eliquis yesterday--last dose received this AM (now discontinued)
Discussed need for sternotomy/MV vegetation debridement with possible repair, poss ELAA +/- MAZE
Pt amenable to preoperative workup studies. Certainly has some added risk with recent CVA. Brain MRI is pending. Pt had CTA H&N without carotid stenosis-so no need for carotid US. Discussed need for LHC with cardiology. Will order CTA of chest, T&S,
labs. Pt should have panelipse for dental clearance--not clear if patient will be able to stand for the study, will discuss with nursing/PT. Last eliquis was this morning, we will plan to run a TEG early AM on 08/10 and consider OR then if washout
acceptable. Full eval by Dr. Brian to follow.
Data Reviewed
-
Echo: Report Reviewed by me
CT Scan: Report Reviewed by me
MRI: Report Reviewed by me
Labs: Labs Reviewed by me
--- NOTE | 2024-08-08 11:44 | W.PN.ONC2 ---
Today's Communication / Plan
-
f/u MRI
follow cultures
daily CBC
CT surgery following
neurology following
Impression
Impression
Medullary breast cancer, stage T2 N0 M0, HER+, HER2 3+, on adjuvant TCHP, intent of care curative
Port infection complicated by bacteremia, s/p port removal 08/04
concern for MV endocarditis
Hypothyroidism
new atrial fibrillation
new left eye visual deficit
pancytopenia secondary to antineoplastic therapy+/-infection -neutropenia resolved -thrombocytopenia improved 124,000 today - Hgb stable 8.9g/dL. Has not required transfusion support during hospitalization
Plan
Plan
Last two cycles of chemo, if given, could be administered via peripheral IV. Taxotere can be uncomfortable by peripheral IV but could give Abraxane or taxol instead.
Herceptin and Perjeta are both Sub-Q and do not require port.
Would not replace port.
follow blood cultures
anticoagulation for atrial fibrillation on hold
neuro following -MRI pending
cardiology considering mitral valve surgery
Subjective/Objective
Subjective
continues with L eye visual disturbance since last night
denies overt pain or bleeding
Vital Signs:
Vital Signs
Temp Pulse Resp BP Pulse Ox
98.1 F 88 22 127/87 95
08/08/24 07:20 08/08/24 06:00 08/08/24 06:00 08/08/24 06:00 08/08/24 06:00
Lab Results:
Laboratory Data
WBC 12.5 10^3/uL (4.8-10.8) H 08/08/24 05:31
Hgb 8.9 g/dL (12.0-16.0) L 08/08/24 05:31
Plt Count 124 10^3/uL (130-400) L D 08/08/24 05:31
PT 15.3 Sec (11.4-14.6) H 08/02/24 20:27
INR 1.18 08/02/24 20:27
APTT 70.2 Sec (23.4-35.0) H 08/03/24 21:45
eGFR > 60.00 08/08/24 05:31
Physical Exam
port removal site with dressing c/d/i
HEENT: Moist Mucous Membranes; No Jaundice
Cardiology: Normal Sinus Rhythm
Pulmonary: Clear
GI: Soft
Extremities: Pulses Present; No Edema
[2024-08-08] MEDS: LASIX 40 MG IV (12:42)
[2024-08-08] MEDS: FLUSH (NSS) 2 FLUSH IV (12:42)
--- NOTE | 2024-08-08 14:30 | CM ---
Patient seen at bedside with physicians and patient . Patient for surgical assessment possible surgery per on thu. Patient plan is for surgery if not connected to CA. Per patient if CA connected he had questions. CM will
continue to follow for discharge planning needs.
PLan; home with VN pending medical treatment plan
--- NOTE | 2024-08-08 15:37 | W.PN.ID1 ---
Addendum entered and electronically signed by Sofy Roy MD 08/09/24 08:42:
Correction: Daptomycin DOES NOT cross blood-brain barrier.
Original Note:
Date of Service
Date of Service: August 08, 2024
Today's Communication
Since daptomycin does cross the blood-brain barrier, will add back IV Vancomycin.
Assessment / Plan
# Sustained Staphylococcus aureus (MSSA) bacteremia
# Catheter associated bloodstream infection from port, present on admission.
. 08/04 s/p port removed, cath tip MSSA
# [place] MV infective endocarditis
.08/08 DONNELL 0.9cm mobile vege attached to MV
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
# Multiple antibiotic allergies including penicillin, cephalosporins, sulfa, cipro
# Fever resolved
# New onset Afib
# R Breast cancer on adjuvant chemotherapy
# Neutropenia (resolved) and Pancytopenia due to chemotherapy
- Blood cx's remain positive
- Continue to repeat blood cultures x 2 until at least 2 sets neg.
- Await brain MRI
- Plan for MV repair per Cardiothoracic
- Continue high dose daptomycin 1g IV q24h (d2) for now
Follow weekly CK while on daptomycin.
-Since daptomycin does cross the blood-brain barrier, will add back IV Vancomycin.
- Stool C. diff Ag+, toxin neg = colonization
- Continue prophylactic Vancomycin 125mg po daily while on systemic abx.
updated.
����������������������������������������������������������
Chief Complaint
-: Clinical Sepsis and Bacteremia
Subjective / Review of Systems
at bedside. Pt still with loss of vision.
Vital Signs / Physical Exam
Vital Signs
Vital Signs
Temp Pulse Resp BP Pulse Ox
98.1 F 96 24 115/80 95
08/08/24 07:20 08/08/24 15:00 08/08/24 15:00 08/08/24 15:00 08/08/24 15:00
Physical Exam
Constitutional: Acutely Ill
Cardiovascular: Regular Rate and S1/S2
Pulmonary: Clear
Gastrointestinal: Soft, Non Tender and Non Distended
Extremities: Edema
Neurological: Other (Lethargic)
Objective Data
Lab Data
Lab Results
08/08/24 05:31
08/08/24 05:31
PT 15.3 Sec (11.4-14.6) H 08/02/24 20:27
INR 1.18 08/02/24 20:27
APTT 70.2 Sec (23.4-35.0) H 08/03/24 21:45
Estimated Creat Clear 67 ml/min 08/08/24 05:31
Lactic Acid Cancelled 08/03/24 12:03
Total Bilirubin 1.2 mg/dl (0.2-1.3) 08/02/24 20:27
AST 31 U/L (14-36) 08/02/24 20:27
ALT 19 U/L (0-35) 08/02/24 20:27
Alkaline Phosphatase 70 U/L (38-126) 08/02/24 20:27
Most recent labs reviewed.
Micro Results:
08/06/24 03:49 Blood Culture - Preliminary
Blood/Venous S aureus-Methicillin Sensitive
Gram Stain - Preliminary
08/06/24 03:30 Blood Culture - Preliminary
Blood/Venous S aureus-Methicillin Sensitive
Gram Stain - Preliminary
08/03/24 22:57 Salmonella/Shigella Culture - Final
Feces/Stool No Salmonella, Shigella, Aeromonas or Plesiomonas species
isolated.
Campylobacter Culture - Final
No Campylobacter species isolated.
Shiga Toxin Test - Final
No E. coli Shiga Toxin 1 or 2 detected.
Stool Leukocytes - Final
08/07/24 09:52 Blood Culture - Preliminary
Blood/Venous Positive culture in progress
Gram Stain - Preliminary
08/08/24 05:31 Blood Culture - Pending
Blood/Venous
08/05/24 09:33 Blood Culture - Preliminary
Blood/Venous S aureus-Methicillin Sensitive
Gram Stain - Preliminary
08/05/24 09:21 Blood Culture - Preliminary
Blood/Venous S aureus-Methicillin Sensitive
Gram Stain - Preliminary
08/04/24 08:18 Catheter Tip Culture - Final
Catheter Tip S aureus-Methicillin Sensitive
08/02/24 20:31 Blood Culture - Final
Blood/Venous S aureus-Methicillin Sensitive
Gram Stain - Final
08/03/24 21:45 Urine Culture - Final
Urine S aureus-Methicillin Sensitive
08/04/24 04:17 Blood Culture - Preliminary
Blood/Venous S aureus-Methicillin Sensitive
Gram Stain - Preliminary
08/04/24 04:17 Blood Culture - Preliminary
Blood/Venous S aureus-Methicillin Sensitive
Gram Stain - Preliminary
08/02/24 20:28 Urine Culture - Final
Urine S aureus-Methicillin Sensitive
08/02/24 20:27 Blood Culture - Final
Blood/Venous S aureus-Methicillin Sensitive
Gram Stain - Final
08/02/24 20:51 Blood Culture - Final
Blood/Venous S aureus-Methicillin Sensitive
Gram Stain - Final
08/03/24 22:57 C. difficile GDH Antigen & Toxins - Final
Feces/Stool C. difficile antigen positive, toxin negative.
Clostridium difficile present, but toxin not detected.
Patient may be a carrier, colonized with nontoxinogenic
strain or the level of toxin in sample is below detection
limits. This information should be used in conjunction with
the patient's clinical history.
- Final
Negative for Norovirus GI and GII.
08/02/24 20:39 Influenza Types A & B (DAHLIA) - Final
Nasal Swab Negative for Influenza A & B, NAAT
Negative results must be combined with clinical observations
and patient history.
Nucleic Acid Amplification test (NAAT)performed on the
[employer] platform.
08/02/24 CXR: Probable infectious/inflammatory pneumonitis.
--- NOTE | 2024-08-08 16:09 | PHA.VAN.IN ---
Assessment
- Assessment
Renal Function: Appears similar to baseline
Concomitant Antimicrobials: daptomycin
- Previous Dosing Experience
Previous Regimen: Vanc 1250mg Q12H
Date of Regimen: July 2024 (earlier this admission)
Provided Trough of: 14.9
Provided AUC of: 516
Patient's SCR is: Similar to previous dosing experience
Patient's weight is: Similar to previous dosing experience
Regimen provided the following additional patient-specific PK:
ke = 0.0744
half-life = 9.3 H
Cmax = 30.8
Cmin = 14.1
Vd = 65 L (~ 0.76 L/kg)
Vanc Cl = 81 ml/min
AUC Dosing Plan
- Empiric Dosing
Initial / Loading Dose: 2000mg - administration pending
Maintenance Regimen: Vanc 1250mg Q12H starting 08/09 599 based on prior experience above
- Monitoring
No levels ordered at this time: consider levels in next few days
Pharmacokinetics Vancomycin I
- -
Patient Age: 64
Patient Sex: Female
Vancomycin Day #: 1
Indication: Endocarditis
Requesting Provider: Dr Roy
Pertinent Antimicrobial Allergies:
Cefprozil - hives
cephalosporins - unknown
Ciprofloxacin - unknown
Penicillins - hives
Trimethoprim / sulfamethoxazole (Bactrim) - hives
Height / Weight:
Height 5 ft 5 in
Actual Weight 85.3 kg
Pertinent Past Medical History: Breast cancer (port)
- Vital Signs / Lab Results
Temp Pulse Resp BP Pulse Ox
98.1 F 96 24 115/80 95
08/08/24 07:20 08/08/24 15:00 08/08/24 15:00 08/08/24 15:00 08/08/24 15:00
Lab Results - Hematology
08/06/24 08/07/24 08/08/24
03:30 04:09 05:31
WBC 3.2 L 7.9 12.5 H
Band Neutrophils 0
Lab Results - Chemistry
08/06/24 08/07/24 08/07/24
03:30 04:09 21:56
BUN 13 11 11
Creatinine 0.9 0.8 0.9
Estimated Creat Clear 67 76 67
08/08/24
05:31
BUN 12
Creatinine 0.9
Estimated Creat Clear 67
Microbiology Results
08/06/24 03:49 Blood Culture - Preliminary
Blood/Venous S aureus-Methicillin Sensitive
Gram Stain - Preliminary
08/06/24 03:30 Blood Culture - Preliminary
Blood/Venous S aureus-Methicillin Sensitive
Gram Stain - Preliminary
08/03/24 22:57 Salmonella/Shigella Culture - Final
Feces/Stool No Salmonella, Shigella, Aeromonas or Plesiomonas species
isolated.
Campylobacter Culture - Final
No Campylobacter species isolated.
Shiga Toxin Test - Final
No E. coli Shiga Toxin 1 or 2 detected.
Stool Leukocytes - Final
08/07/24 09:52 Blood Culture - Preliminary
Blood/Venous Positive culture in progress
Gram Stain - Preliminary
08/05/24 09:33 Blood Culture - Preliminary
Blood/Venous S aureus-Methicillin Sensitive
Gram Stain - Preliminary
08/05/24 09:21 Blood Culture - Preliminary
Blood/Venous S aureus-Methicillin Sensitive
Gram Stain - Preliminary
--- NOTE | 2024-08-08 16:37 | PTCARENOTE ---
Returned from DONNELL 1100, VS taken, Imu monitors intact. Sleepy, easily arousable. Neuro checks completed, GCS 15. AM meds given - then IV Lasix given as ordered. Had 2 stools through the morning, purewick set up post Lasix. K rider completed.
[2024-08-08 16:56] LABS: Folate 4.6 ng/ml (2.76-20); Vitamin B12 > 1000 pg/ml (239-931)
[2024-08-08] MEDS: VANCOCIN 540 MG IV (18:19)
--- NOTE | 2024-08-08 18:43 | PTCARENOTE ---
CT scan, MRI and US all completed this pm. IV Vanco infusing. VSS. Has been grossly incontinent of urine since IV Lasix given earlier. 1600ml+ saturated pads x2 - Purewick on/off at times incont. of stool. Skin intact- calazime placed to
buttocks lisa areas. Very supportive spouse at bedside all day assists with care.
--- NOTE | 2024-08-08 18:46 | W.PN.OMFS ---
Today's Communication
-
No evidence of gross decay or infection noted on physical exam. No imaging available at this time. CT Surgery to attempt to obtain imaging from Dr. Nicolás Del Angel.
Assessment / Plan
-
Patient planned for MVR.
No evidence of gross decay or infection noted on physical exam. No imaging available at this time. CT Surgery to attempt to obtain imaging from Dr. Nicolás Del Angel.
Subjective Data
-
Patient presents for repair of MVR. Patient denies oral pain, discomfort. Denies caries or broken teeth. Patient reports diligent dental care with recent teeth cleaning with x-rays without issues.
Objective Data
-
Vitals, I&O and Lab Results:
Vital Signs
Temp Pulse Resp BP Pulse Ox
98.3 F 97 26 112/83 93
08/08/24 18:29 08/08/24 16:00 08/08/24 16:00 08/08/24 16:00 08/08/24 16:00
Intake and Output
08/07/24 08/08/24 08/09/24
06:59 06:59 06:59
Intake Total 2450 / 2450 750 / 750
Output Total 650 / 650 750 / 750 2100 / 2100
Balance 1800 / 1800 -750 / -750 -1350 / -1350
Intake:
Oral fluids 440 / 440 480 / 480
IV fluids (Total) 1200 / 1200
IV piggybacks 810 / 810 270 / 270
Output:
Urine, Voided 650 / 650 750 / 750 2100 / 2100
Other:
Number of approximated SMALL 1
amounts of urine
Number of approximated MODERATE 1 1
amounts of urine
How many times incontinent 1
MODERATE amount urine
How many times incontinent 1 1
SATURATED amount urine
Number of unmeasured liquid
stools
Rectum 2 3 1
Lab Data
08/08/24 05:31
08/08/24 05:31
Plt Count 124 10^3/uL (130-400) L D 08/08/24 05:31
Microbiology
08/06/24 03:49 Blood Culture - Preliminary
Blood/Venous S aureus-Methicillin Sensitive
Gram Stain - Preliminary
08/06/24 03:30 Blood Culture - Preliminary
Blood/Venous S aureus-Methicillin Sensitive
Gram Stain - Preliminary
08/03/24 22:57 Salmonella/Shigella Culture - Final
Feces/Stool No Salmonella, Shigella, Aeromonas or Plesiomonas species
isolated.
Campylobacter Culture - Final
No Campylobacter species isolated.
Shiga Toxin Test - Final
No E. coli Shiga Toxin 1 or 2 detected.
Stool Leukocytes - Final
08/07/24 09:52 Blood Culture - Preliminary
Blood/Venous Positive culture in progress
Gram Stain - Preliminary
08/08/24 05:31 Blood Culture - Pending
Blood/Venous
Physical Exam
-
No facial swelling.
Oral Exam: No gross decay, no gross periodontal disease. No evidence of infection. No mobile teeth. No lesions noted.
Data Reviewed
-
Old Records: Requested
[2024-08-08] MEDS: ATIVAN 0.5 MG PO (22:10)
[2024-08-09] VITALS (34 sets, daily range): BP systolic 102–128; BP diastolic 61–107
--- NOTE | 2024-08-09 04:05 | PTCARENOTE ---
Pt with large volume yellow bile emesis around 0400. Pt with no c/o nausea, stated that it 'came on all of a sudden'. Pt cleaned, CHG bath done, linens changed. BUSINESS EXCELLENCE MANAGER notified via tiger text.
--- NOTE | 2024-08-09 04:50 | PTCARENOTE ---
pt incontinent of urine all night. no c/o abdominal pain. bladder scanned d/t frequency. 1500ml bladder scan. 2000ml straight cath output clear yellow urine. ARCHITECTURAL ENGINEERING TEACHER notified.
[2024-08-09 05:21] LABS: INR 1.46; PT 17.9 Sec (11.4-14.6)
[2024-08-09 05:22] LABS: APTT 29.5 Sec (23.4-35.0)
[2024-08-09 05:24] LABS: Hematocrit 27.7 % (37.0-47.0); Hemoglobin 9.7 g/dL (12.0-16.0); Mean Corpuscular Volume 94.2 fL (81.0-99.0); Mean Platelet Volume 11.7 fL (7.4-10.4); Platelet Count 169 10^3/uL (130-400); Red Blood Cell Count 2.94 10^6/uL (4.20-5.40); Red Cell Dist. Width 17.7 % (11.5-14.5); White Blood Cell Count 10.7 10^3/uL (4.8-10.8)
[2024-08-09 05:33] LABS: ALT (SGPT) 38 U/L (0-35); AST (SGOT) 42 U/L (14-36); Albumin 2.7 g/dl (3.5-5.0); Alkaline Phosphatase 118 U/L (38-126); Blood Urea Nitrogen 16 mg/dl (7-17); Carbon Dioxide 19 mmol/L (22-30); Chloride 110 mmol/L (98-107); Direct Bilirubin 0.4 mg/dl (0.0-0.4); Estimated Creatinine Clearance 60 ml/min; Glucose 115 mg/dl (70-99); Magnesium 1.8 mg/dl (1.6-2.3); Potassium 2.9 mmol/L (3.5-5.1); Sodium 139 mmol/L (135-145); Total Bilirubin 0.9 mg/dl (0.2-1.3); Total Protein 5.7 g/dl (6.3-8.2); eGFR > 60.00
[2024-08-09] MEDS: VANCOCIN 275 MG IV ×2 (05:45→17:49)
[2024-08-09] MEDS: SYNTHROID 50 MCG PO (05:45)
[2024-08-09] MEDS: KCL 270 MEQ IV (05:59)
--- NOTE | 2024-08-09 06:09 | PTCARENOTE ---
K 2.9, VALVE STEAMER notified. K rider ordered and hung.
--- NOTE | 2024-08-09 07:21 | W.PN.HOSP.TC ---
Addendum entered and electronically signed by Genevieve Carlton MD 08/09/24 14:33:
I saw and evaluated the patient independently. I reviewed the resident�s note and agree with findings and plan as documented by Dr. Miller.
GENERAL: well developed, well nourished, female in no apparent distress--seen in CVICU
HEENT: NC/AT
HEART: regular rate and rhythm, +S1, +S2--small diastolic murmur
LUNGS : clear to auscultation bilaterally
ABDOM: soft, nontender, nondistended, + bowel sounds
EXT: no cyanosis, clubbing-- 2+ LE edema bilaterally
NEUROLOGIC: grossly intact
Presumed Acute CVA likely cardioembolic (Acute painless loss of vision in the left eye 08/07/24 evening with Right-sided weakness more prominent in the lower extremity)--head CT neg, head and neck CTA neg--apprec neuro-- brain MRI shows Several tiny
foci of nonhemorrhagic acute/subacute infarcts within the bilateral centrum semiovale/periventricular regions and right cerebellum--DONNELL shows mitral valve vegetation--cont asa as per neuro--PT/OT
sepsis with MSSA bacteremia with mitral valve endocarditis--blood cultures remain positive despite removing port (tip also positive)--apprec ID--now on daptomycin and IV vanco (dapto does not cross blood brain barrier)--DONNELL 08/08/2024; LVEF 60-65%,
There is a mobile, spherical vegetation (measuring 0.9 x 0.7 x 0.7 cm) attached to the base of the P1/P2 segment at the posterior mitral valve leaflet--CT surgery eval appreciated, tentative plan for surgery Thursday 08/10-- said if it is
cancer, they don't want the surgery....told him, it looks infective with persistently positive blood cultures--for mitral valve replacement tomorrow
Coffee-ground emesis on Anemia of chronic disease--Was on IV heparin drip with thrombocytopenia at the time, blood counts now improving--apprec GI--cont IV PPI, no plans for intervention--
New onset paroxysmal AF with RVR--H/O SVT/AT--Developed new onset AF, [id number] 3; s/p IV amiodarone and heparin drip on hold--apprec cards--rate control--cont oral diltiazem
Pancytopenia--Likely multifactorial with anemia of chronic disease and new leukopenia/thrombocytopenia from bacteremia/sepsis--not neutropenic--Supportive transfusions for bleeding, platelet <10, hemoglobin <7
NAGMA/Hypophosphatemia/Hypomagnesemia/Hypocalcemia and Diarrhea from chemotherapy--C. diff antigen positive and toxin negative--imodium PRN--oral vanco also started by ID
hypokalemia--not responding to potassium repletion--given urine studies, with elevated urine potassium--likely type 1 distal renal tubular acidosis--change potassium repletion to potassium citrate--consider renal consult
C. difficile colonization--Currently on oral vancomycin per ID while on systemic antibiotics
Breast cancer s/p double lumpectomy--Currently being treated for stage I, ER(+)/KS(-)/Her2(-) breast carcinoma--Status post double lumpectomy currently on adjuvant chemoradiation--Status post chemotherapy port removal due to above, oncology says no
longer needed--onc follow up post d/c
Hypothyroidism--Unclear etiology, home regimen includes levothyroxine supplementation--No signs or symptoms of abnormal thyroid function here
DVT proph--SCDs
CODE STATUS-- Full code
Original Note:
Today's Communication/Plan
-
;/
Assessment / Plan
Assessment / Plan
Assessment/plan
#Mitral valve endocarditis
#MSSA bacteremia
#Sepsis secondary to chemotherapy port infection
#Allergy to cephalosporins
-2 sets of blood cultures positive for MSSA, s/p port removal
-Persistently positive blood culture
-Was Initially started on IV vancomycin, then transitioned to daptomycin, Now IV vancomycin resumed 08/08, as daptomycin does not cross blood brain-barrier
-DONNELL 08/08/2024; LVEF 60-65%, There is a mobile, spherical vegetation (measuring 0.9 x 0.7 x 0.7 cm) attached to the base of the P1/P2 segment at the posterior mitral valve leaflet.
-CT surgery consulted given DONNELL findings
-Scheduled for sternotomy/MV vegetation debridement with possible repair
-pRE-OP workup studies done, including Dental Clearance.
-Scheduled for [facility] today.
-ID following
-Continue to trend CBC and temperature curve
#Acute CVA likely embolic stroke etiology-Cardioembolic
-Acute painless loss of vision in the left eye yesterday evening
-Right-sided weakness more prominent in the lower extremity
-CTA head�no acute abnormalities
-CTA head/neck�no evidence of hemodynamically significant stenosis
-Neurology following
-Started on aspirin 81 mg daily.
-Brain MRI- Several tiny foci of nonhemorrhagic acute/subacute infarcts within the bilateral centrum semiovale/periventricular regions and right cerebellum.
#Coffee-ground emesis
#Anemia of chronic disease
-1 episode of coffee-ground emesis while here, hemoglobin has since stabilized
-Was on IV heparin drip with thrombocytopenia at the time, blood counts now improving
-GI consulted, was started on IV PPI, remains on regular diet
-Continue to trend CBC and monitor for bleeding
-Continue with IV PPI with pantoprazole 40 mg daily
-If recurrent or hemoglobin downtrends may need EGD
-Holding anticoagulation
#New onset paroxysmal AF with RVR
#H/O SVT/AT
-Developed new onset AF, [id number] 3; s/p IV amiodarone and heparin drip
-Has been initiated on amiodarone load, remains on home diltiazem
-Initially on amio 200 twice daily, has been increased to 400 twice daily
-Continue amiodarone and oral diltiazem
-Initially started on DOAC, but now holding for possible mitral valve surgery
#Pancytopenia
-Likely multifactorial with anemia of chronic disease and new leukopenia/thrombocytopenia from bacteremia
-Less likely related to chemotherapy, per oncology has had fairly stable CBC after on previous sessions
-White count and platelets improving slowly with treatment of underlying sepsis
-Has not had absolute neutropenia, ANC consistently 0.6 or greater here
-Trend CBC with differential daily, continue neutropenic precautions
-Supportive transfusions for bleeding, platelet <20, hemoglobin <7
-Has improved as of 08/07, will DC neutropenic precaution
#Renal tubular Acidosis Type 1
#Non Anion Gap metabolic acidosis
#Hypokalemia
-Has had persistent mild acidemia with hypokalemia despite repletion daily
-persistent Hypokalemia likely secondary to Type 1 RTA
-Urine Anion gap +9.2, Urine K 128.2
-Recheck BMP today, if K still Low, consider Potassium Citrate. '
#Hypophosphatemia-resolved
#Hypomagnesemia-resolved
#Hypocalcemia- resolved
#Diarrhea from chemotherapy
-Infectious workup negative for diarrhea, started on Imodium with improvement
-Trend BMP/Mag/Phos and replete as needed
-Continue Imodium PRN
#C. difficile colonization
-C. difficile antigen positive, toxin negative
-s/p oral vancomycin, but now DC'd after 3 days
-Monitor bowel status
#Breast cancer s/p double lumpectomy
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
-Status post double lumpectomy currently on adjuvant chemoradiation
-Status post chemotherapy port removal due to above, oncology says no longer needed
-Will need to follow-up after discharge with oncologist to resume chemo and XRT
#Hypothyroidism
-Continue levothyroxine supplementation
-No signs or symptoms of abnormal thyroid function here
DVT prophylaxis: SCDs(holding Eliquis)
GI prophylaxis: IV PPI
CODE STATUS: Full code
Anticipated Discharge: > 48 hours
Subjective/Interval History
-
Patient seen and examined at bedside. Overnight, one episode of bilious vomiting. This AM, denies Nausea, vomiting episode. In no acute distress. Without CP, SOB.
Objective Data
-
Labs:
Laboratory Results
08/09/24 08/09/24
04:34 04:41
WBC 10.7
Hgb 9.7 L
Hct 27.7 L
Plt Count 169 D
PT 17.9 H
INR 1.46
APTT 29.5
Sodium 139
Potassium 2.9 L
Chloride 110 H
Carbon Dioxide 19 L
BUN 16
Creatinine 1.0
Glucose 115 H
Calcium 8.0 L
Total Bilirubin 0.9
AST 42 H
ALT 38 H
Alkaline Phosphatase 118
Vital Signs:
Vital Signs
Temp Pulse Resp BP Pulse Ox
98.0 F 85 26 126/76 95
08/09/24 03:00 08/09/24 06:00 08/08/24 16:00 08/09/24 06:00 08/09/24 06:00
I&O
08/08/24 08/09/24 08/10/24
06:59 06:59 06:59
Intake Total 750 / 750
Output Total 750 / 750 2500 / 2500
Balance -750 / -750 -1750 / -1750
Review of Systems
-
All other systems: Reviewed and negative (Except as documented)
Physical Exam
-
General: No Apparent Distress
Respiratory: Negative Wheezes
Cardiac: Regular Rhythm and S1/S2
GI: Soft, Nontender, Nondistended and Normal Bowel Sounds
Musculoskeletal: Edema, Right Lower Extrem, Edema, Left Lower Extrem and Other (3/5 muscular strength RLE, 5/5 muscular strength LLE)
Neuro: Awake, Alert, Oriented and AO x 3
Psych: Calm
[2024-08-09] MEDS: LOW STRENGTH ASPIRIN 324 MG PO (07:57)
[2024-08-09] MEDS: KCL 40 MEQ PO ×2 (08:00→12:41)
[2024-08-09] MEDS: PACERONE 400 MG PO ×2 (08:28→20:37)
[2024-08-09] MEDS: CLARITIN 10 MG PO (08:28)
[2024-08-09] MEDS: VISBIOME 1 CAP PO (08:28)
[2024-08-09] MEDS: CARDIZEM CD 240 MG PO (08:29)
[2024-08-09] MEDS: NSS (PRESERVATIVE FREE) 10 ML IV (08:30)
[2024-08-09] MEDS: PROTONIX IV 40 MG IV (08:30)
[2024-08-09 08:43] LABS: Prealbumin (Transthyretin) 12.1 mg/dl (17.6-36.0)
--- NOTE | 2024-08-09 08:43 | PHA.VAN.FU ---
Vancomycin Assessment / Plan
- Assessment
Renal Function: Stable
WBC's are: Trending Down (10.7 from 12.5)
In the past 24 hrs, patient has been: Afebrile
Concomitant Antimicrobials: Daptomycin
- Dosing Plan
Continue: Vancomycin 1250 mg IV Q12H
- Monitoring Plan
No level(s) ordered at this time: Consider level when at steady state with current regimen
- Follow Up
Pharmacy will continue to follow.
Vancomycin Follow UP
- -
Patient Age: 64
Patient Sex: Female
Vancomycin Day #: 2
Indication: Endocarditis
Requesting Provider: Dr Roy
Pertinent Antimicrobial Allergies:
Cefprozil - hives
cephalosporins - unknown
Ciprofloxacin - unknown
Penicillins - hives
Trimethoprim / sulfamethoxazole (Bactrim) - hives
Height / Weight:
Height 5 ft 5 in
Actual Weight 85.3 kg
Pertinent Past Medical History: Breast cancer (port)
- Vital Signs / Lab Results
Temp Pulse Resp BP Pulse Ox
98.0 F 87 26 121/73 95
08/09/24 03:00 08/09/24 08:28 08/08/24 16:00 08/09/24 08:28 08/09/24 06:00
Lab Results - Hematology
08/07/24 08/08/24 08/09/24
04:09 05:31 04:41
WBC 7.9 12.5 H 10.7
Band Neutrophils 0
Lab Results - Chemistry
08/07/24 08/07/24 08/08/24
04:09 21:56 05:31
BUN 11 11 12
Creatinine 0.8 0.9 0.9
Estimated Creat Clear 76 67 67
Albumin
08/09/24
04:34
BUN 16
Creatinine 1.0
Estimated Creat Clear 60
Albumin 2.7 L
Microbiology Results
08/08/24 05:31 Blood Culture - Preliminary
Blood/Venous No Growth in 24 hours- Final report to follow
08/06/24 03:49 Blood Culture - Preliminary
Blood/Venous S aureus-Methicillin Sensitive
Gram Stain - Preliminary
08/06/24 03:30 Blood Culture - Preliminary
Blood/Venous S aureus-Methicillin Sensitive
Gram Stain - Preliminary
08/03/24 22:57 Salmonella/Shigella Culture - Final
Feces/Stool No Salmonella, Shigella, Aeromonas or Plesiomonas species
isolated.
Campylobacter Culture - Final
No Campylobacter species isolated.
Shiga Toxin Test - Final
No E. coli Shiga Toxin 1 or 2 detected.
Stool Leukocytes - Final
08/07/24 09:52 Blood Culture - Preliminary
Blood/Venous Positive culture in progress
Gram Stain - Preliminary
08/05/24 09:33 Blood Culture - Preliminary
Blood/Venous S aureus-Methicillin Sensitive
Gram Stain - Preliminary
08/05/24 09:21 Blood Culture - Preliminary
Blood/Venous S aureus-Methicillin Sensitive
Gram Stain - Preliminary
Therapeutic Drug Monitoring
Vancomycin Peak 26.2 ug/ml (18-26) H 08/04/24 21:39
Vancomycin Trough 14.9 ug/ml (5-20) 08/05/24 05:14
--- NOTE | 2024-08-09 09:02 | W.PN.CD ---
Today's Communication / Plan
-
No IV lasix today => Needs KCl
Likely lasix tomorrow
Appreciate ID, medicine, oncology, neuro, and CT Surgery input
Impression / Plan
-
Card: Espinoza (for palps, AT/PSVT)
Mitral valve endocarditis
- Primary MV IE vs secondary seeding
Sepsis due to MSSA bacteremia
- Suspected source is Chemo port with cath tip growing Staph aureus. Blood cultures remain positive as recently as 08/07/2024
- DONNELL 08/08/2024: LVEF 60-65%, mobile vegetation attached to the base of P1/P2 segment of MV (0.9 x 0.7 x 0.7 cm), mild MR
- ID following. Continue antibiotics.
- CT surgery consult given concern for embolic phenomenon and persistently positive blood cultures
Concern for CVA
- MRI 08/08/2024: 'Several tiny foci of nonhemorrhagic acute/subacute infarcts within the bilateral centrum semiovale/periventricular regions and right cerebellum'.
- L eye vision loss on 08/07 PM. Stroke alert called
- Head/neck CTA and brain CT unremarkable on 08/07
- Neuro involved: see their note for details
- May need to hold AC pending further testing
PAF, RVR
- AFib is NEW this admit. Likely due to sepsis
- Anticipate at least several months of Amio
- No AFib in last 2 days
- Continue dilt ER 240 a day and amiodarone 400 mg twice daily
- Eliquis $30 per month. Given AFib after recovers from IE and anticipated MV surgery will initiate Eliquis
- [id number] score is 3 for age, female, HTN
Volume overload
- Likely due to IV fluids and several IV medications
- 40mg IV Lasix 08/08/2024
- Anticipate more IV Lasix 08/10/2024 if K+ corrected
Hypokalemia, from diuretic
- Repleted K+
Pancytopenia
- Per oncology, etiology thought to be more likely ongoing infection then chemotherapy though both could be contributing
- Has not been thrombocytopenic in the past with chemo
- Back on AC as above
Breast Ca, on chemo
HTN
Hyponatremia, improving
Hx of PSVT (mechanism uncertain)
Subjective: Last night she experienced an episode of vision loss in her left eye. Stroke alert was called. Imaging including brain CT and head/neck CTA were unremarkable. Neurology was consulted. Today her visual loss persists and she has light
sensitivity.
Physical Exam
Vital Signs/Labs
Vital Signs
Temp Pulse Resp BP Pulse Ox
98.0 F 87 26 121/73 95
08/09/24 03:00 08/09/24 08:28 08/08/24 16:00 08/09/24 08:28 08/09/24 06:00
08/09/24 04:41
08/09/24 04:34
PT 17.9 Sec (11.4-14.6) H 08/09/24 04:34
INR 1.46 08/09/24 04:34
APTT 29.5 Sec (23.4-35.0) 08/09/24 04:34
Magnesium 1.8 mg/dl (1.6-2.3) 08/09/24 04:34
Triglycerides 181 mg/dl (10-149) H 08/08/24 05:31
LDL Cholesterol, Calc 49 mg/dl 08/08/24 05:31
VLDL Cholesterol, Calc 36 mg/dl (0-30) H 08/08/24 05:31
HDL Cholesterol 22 mg/dl 08/08/24 05:31
Physical Exam
Constitutional: No acute distress
EENT: Anicteric
Cardiovascular: Rhythm & rate is regular and Pedal edema present (trace to 1+)
Respiratory: Respiratory effort normal and Lungs clear to auscul.
GI: Soft and Distention absent
Neuro/Psych: Alert
Data Reviewed
-
Date of Service: August 09, 2024
--- NOTE | 2024-08-09 09:10 | W.PN.ID1 ---
Date of Service
Date of Service: August 09, 2024
Today's Communication
- Continue high dose daptomycin 1g IV q24h (d3) for now
-Since daptomycin DOES NOT cross the blood-brain barrier, IV Vancomycin resumed 08/08.
Assessment / Plan
# Sustained Staphylococcus aureus (MSSA) bacteremia
# Catheter associated bloodstream infection from port, present on admission.
. 08/04 s/p port removed, cath tip MSSA
# [place] MV infective endocarditis
.08/08 DONNELL 0.9cm mobile vege attached to MV
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
# Acute urinary retention, peña placed 08/09/24
# Multiple antibiotic allergies including penicillin, cephalosporins, sulfa, cipro
# Fever resolved
# New onset Afib, now in sinus
# R Breast cancer on adjuvant chemotherapy
# Neutropenia (resolved) and Pancytopenia due to chemotherapy
- Blood cx's possibly clearing from 08/08/24.
- Continue to repeat blood cultures x 2 until at least 2 sets neg.
- Plan for MV repair per Cardiothoracic.
For cardiac catheterization today
- Continue high dose daptomycin 1g IV q24h (d3) for now
Follow weekly CK while on daptomycin.
-Since daptomycin DOES NOT cross the blood-brain barrier, IV Vancomycin resumed 08/08.
Will eventually de-escalate abx's once patient is stabilized.
- Stool C. diff Ag+, toxin neg = colonization
- Continue prophylactic Vancomycin 125mg po daily while on systemic abx.
- Diarrhea today. Monitor for persistance.
����������������������������������������������������������
Chief Complaint
-: Clinical Sepsis and Bacteremia
Subjective / Review of Systems
Urinary retention overnight requiring peña. + emesis this am , bile output. + diarrhea this am. No abd pain.
Left vision loss stable.
Vital Signs / Physical Exam
Vital Signs
Vital Signs
Temp Pulse Resp BP Pulse Ox
98.0 F 87 26 121/73 95
08/09/24 03:00 08/09/24 08:28 08/08/24 16:00 08/09/24 08:28 08/09/24 06:00
Physical Exam
Constitutional: Acutely Ill
Eyes: Sclera Anicteric
Cardiovascular: Regular Rate and S1/S2
Pulmonary: Clear (anteriorly)
Gastrointestinal: Soft and Non Distended
Genito-Urinary: Peña and Clear Urine
Extremities: Edema
Neurological: AO x 3
Objective Data
Lab Data
Lab Results
08/09/24 04:41
08/09/24 04:34
PT 17.9 Sec (11.4-14.6) H 08/09/24 04:34
INR 1.46 08/09/24 04:34
APTT 29.5 Sec (23.4-35.0) 08/09/24 04:34
Estimated Creat Clear 60 ml/min 08/09/24 04:34
Lactic Acid Cancelled 08/03/24 12:03
Total Bilirubin 0.9 mg/dl (0.2-1.3) 08/09/24 04:34
AST 42 U/L (14-36) H 08/09/24 04:34
ALT 38 U/L (0-35) H 08/09/24 04:34
Alkaline Phosphatase 118 U/L (38-126) 08/09/24 04:34
Most recent labs reviewed.
Micro Results:
08/08/24 05:31 Blood Culture - Preliminary
Blood/Venous No Growth in 24 hours- Final report to follow
08/09/24 04:34 Blood Culture - Pending
Blood/Venous
08/06/24 03:49 Blood Culture - Preliminary
Blood/Venous S aureus-Methicillin Sensitive
Gram Stain - Preliminary
08/06/24 03:30 Blood Culture - Preliminary
Blood/Venous S aureus-Methicillin Sensitive
Gram Stain - Preliminary
08/03/24 22:57 Salmonella/Shigella Culture - Final
Feces/Stool No Salmonella, Shigella, Aeromonas or Plesiomonas species
isolated.
Campylobacter Culture - Final
No Campylobacter species isolated.
Shiga Toxin Test - Final
No E. coli Shiga Toxin 1 or 2 detected.
Stool Leukocytes - Final
08/07/24 09:52 Blood Culture - Preliminary
Blood/Venous Positive culture in progress
Gram Stain - Preliminary
08/05/24 09:33 Blood Culture - Preliminary
Blood/Venous S aureus-Methicillin Sensitive
Gram Stain - Preliminary
08/05/24 09:21 Blood Culture - Preliminary
Blood/Venous S aureus-Methicillin Sensitive
Gram Stain - Preliminary
08/04/24 08:18 Catheter Tip Culture - Final
Catheter Tip S aureus-Methicillin Sensitive
08/02/24 20:31 Blood Culture - Final
Blood/Venous S aureus-Methicillin Sensitive
Gram Stain - Final
08/03/24 21:45 Urine Culture - Final
Urine S aureus-Methicillin Sensitive
08/04/24 04:17 Blood Culture - Preliminary
Blood/Venous S aureus-Methicillin Sensitive
Gram Stain - Preliminary
08/04/24 04:17 Blood Culture - Preliminary
Blood/Venous S aureus-Methicillin Sensitive
Gram Stain - Preliminary
08/02/24 20:28 Urine Culture - Final
Urine S aureus-Methicillin Sensitive
08/02/24 20:27 Blood Culture - Final
Blood/Venous S aureus-Methicillin Sensitive
Gram Stain - Final
08/02/24 20:51 Blood Culture - Final
Blood/Venous S aureus-Methicillin Sensitive
Gram Stain - Final
08/03/24 22:57 C. difficile GDH Antigen & Toxins - Final
Feces/Stool C. difficile antigen positive, toxin negative.
Clostridium difficile present, but toxin not detected.
Patient may be a carrier, colonized with nontoxinogenic
strain or the level of toxin in sample is below detection
limits. This information should be used in conjunction with
the patient's clinical history.
- Final
Negative for Norovirus GI and GII.
08/02/24 20:39 Influenza Types A & B (DAHLIA) - Final
Nasal Swab Negative for Influenza A & B, NAAT
Negative results must be combined with clinical observations
and patient history.
Nucleic Acid Amplification test (NAAT)performed on the
[employer] platform.
08/08/24 Brain MRI: Several tiny foci of nonhemorrhagic acute/subacute infarcts within the bilateral centrum semiovale/periventricular regions and right cerebellum.
08/02/24 CXR: Probable infectious/inflammatory pneumonitis.
Care Review
Plan reviewed with: Nurse
[2024-08-09] MEDS: CUBICIN 20 MG IV (09:48)
--- NOTE | 2024-08-09 10:14 | CM ---
Patient out of room for procedure. Per nursing patient for transfer to CVICU when completed. CM will continue to follow for discharge planning needs.
Plan; home with family supports/ possible VN pending medical treatment plan
--- NOTE | 2024-08-09 10:25 | PTCARENOTE ---
Assumed care of patient from previous RN with K+ rider infusing. PO potassium also ordered and given by previous RN. Patient to veterinarian laboratory animal care at 09:24. This RN gave patient's IVAB to veterinarian laboratory animal care RN. Patient to go to [id number] after; report given to Lyric. NIHSS
remains a 4. Patient reported sudden onset vomiting overnight; per previous RN, patient vomited large amount of yellow. Patient incontinent multiple episodes of loose stool overnight and again this morning. This nurse updated Dr Carlton.
and patient updated on new room number; took belongings.
[2024-08-09 10:27] LABS: Glycohemoglobin (HgbA1c) 6.2 % (4.0-5.6)
--- NOTE | 2024-08-09 10:55 | W.PN.ONC ---
Today's Communication / Plan
-
Platelet count and Hgb (s/p 2 units) remain stable as of today.
Will cont to follow
Impression
Impression
Medullary breast cancer, stage T2 N0 M0, HER+, HER2 3+, on adjuvant TCHP, intent of care curative
Port infection complicated by bacteremia, s/p port removal 08/04
concern for MV endocarditis
Hypothyroidism
new atrial fibrillation
new left eye visual deficit
pancytopenia secondary to antineoplastic therapy+/-infection -neutropenia resolved -thrombocytopenia improved 124,000 today - Hgb stable 8.9g/dL. Has not required transfusion support during hospitalization
Plan
Plan
Last two cycles of chemo, if given, could be administered via peripheral IV. Taxotere can be uncomfortable by peripheral IV but could give Abraxane or taxol instead.
Herceptin and Perjeta are both Sub-Q and do not require port.
Would not replace port.
Follow blood cultures- still remain positive as of 08/07
anticoagulation for atrial fibrillation on hold- remains in SR for the past 2 days
neuro following -MRI shows several tiny foci of nonhemorrhagic acute/subacute infarcts within the bilateral centrum semiovale/periventricular regions and right cerebellum.
cardiothoracic surgery considering mitral valve repair surgery, for OR on 08/10- cleared by oral surgery
Episodes of loose stool today- on prophylactic Vanco
Platelet count and Hgb (s/p 2 units) remain stable as of today.
Will cont to follow
Subjective/Objective
Subjective/Objective
Complains of losse stool.
Vital Signs:
Vital Signs
Temp Pulse Resp BP Pulse Ox
97.8 F 91 22 127/71 91
08/09/24 10:44 08/09/24 10:40 08/09/24 10:44 08/09/24 09:30 08/09/24 10:44
Lab Results:
Laboratory Data
WBC 10.7 10^3/uL (4.8-10.8) 08/09/24 04:41
Hgb 9.7 g/dL (12.0-16.0) L 08/09/24 04:41
Plt Count 169 10^3/uL (130-400) D 08/09/24 04:41
PT 17.9 Sec (11.4-14.6) H 08/09/24 04:34
INR 1.46 08/09/24 04:34
APTT 29.5 Sec (23.4-35.0) 08/09/24 04:34
eGFR > 60.00 08/09/24 04:34
--- NOTE | 2024-08-09 10:56 | PTCARENOTE ---
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
pt for 484, Dr Carlton notified and Adair order placed for urinary retention; +1 generalized edema noted; palpable pulses throughout; Right Radial TR Band in place and C/D/I; see nursing documentation for further details.
--- NOTE | 2024-08-09 11:31 | ITS.CL.CATH ---
[facility] - Catheterization
Cardiac Catheterization
Procedure Report:
LEFT HEART CATHETERIZATION
Date of Procedure: August 10, 2019
Referring: Dr. Clint Brian and Alphonso Doran MD
PROCEDURES:
1. Left heart catheterization, coronary angiogram.
2. Moderate sedation.
3. Iliofemoral angiography
INDICATION: Preoperative for mitral valve endocarditis
ACCESS: Right radial artery, 5Fr. sheath, under US guidance.
HEMODYNAMICS : (mmHg)
AO (s/d) : 109/67
LVEDP : 20
No significant gradient across the aortic valve to suggest aortic stenosis.
CORONARY FINDINGS
Dominance: Right
Left Main Trunk (LMT): Large caliber vessel that gives rise to the LAD and LCx branches and is free of angiographic disease.
Left Anterior Descending Artery (LAD): Large caliber vessel that gives off 2 major diagonal branches as it courses along the anterior inter-ventricular groove before wrapping around the cardiac apex. The LAD and its branches are free of
angiographic disease.
Left Circumflex Artery (LCx): Large caliber vessel that gives off 1 major obtuse marginal (OM) branch as it courses along the atrio-ventricular (AV) groove. The LCx and its branches are free of angiographic disease.
Right Coronary Artery (RCA): Large caliber dominant vessel that gives rise to the posterior descending artery (RPDA) and very small postero-lateral ventricular (RPLV) branches distally. The RCA and its branches are free of angiographic disease.
Bilateral iliofemoral angiography: No obstructive or high-grade stenosis noted in the iliofemoral vessels bilaterally.
SEDATION: 27 minutes of procedural sedation was utilized. IV Midazolam and IV Fentanyl were administered. An independent medical resident was present to assist with and help manage the patient's level of consciousness and physiologic status.
RADIATION SUMMARY: Fluoro Time (min): 3.2, Dose (mGy): 238.22, DAP (Gy.cm2) : 20.3
Closure Device: There were no immediate intra-procedural complications. The sheath was pulled in the cathead worker and a vascular-band applied to the right wrist for radial artery hemostasis using the patent hemostasis technique.
CONCLUSIONS
1. No obstructive coronary artery disease.
2. Elevated LVEDP at 20 mmHg.
3. No obstructive iliofemoral stenosis bilaterally
RECOMMENDATIONS
1. Wean radial band per protocol. Monitor right hand perfusion and for bleeding from the radial site following removal of the vascular-band following trans-radial access.
2. CT surgery is following patient for mitral valve endocarditis and likely mitral valve surgery.
3. Continue aggressive medical therapy and risk factor modification for secondary CAD prevention.
4. Hydrate with normal saline to mitigate the risk of contrast-induced acute kidney injury.
Copy to: Clint Brian MD and Alphonso Doran MD
Lucita Reed MD, [facility], [facility]
--- NOTE | 2024-08-09 12:17 | PTCARENOTE ---
Adair catheter placed per MD order; 600mls of yellow urine obtained.
--- NOTE | 2024-08-09 12:19 | W.PN.UPDATE ---
Update Note
Progress Note Update
Patient seen with Dr. Brian, discussed risks and benefits of high risk MV debridement +/- repair, LAYNE, GRACIA. Pt understands and agreeable, all questions answered. Plan is for TEG early AM tomorrow 08/10, if results acceptable risk for bleeding will
proceed to OR as second case tomorrow 08/10.
Procedure Type:�Isolated MVr
Perioperative Outcome Estimate %
Operative Mortality 6.98%
Morbidity & Mortality 27.5%
Stroke 4.39%
Renal Failure 9.6%
Reoperation 6.62%
Prolonged Ventilation 17.5%
Deep Sternal Wound Infection 0.184%
Long Hospital Stay (>14 days) 39.7%
Short Hospital Stay (<6 days)* 6.2%
Clinical Summary
Planned Surgery: Isolated MVr, Urgent, First cardiovascular surgery
Demographics: 64 year old, White, female, 85.3kg, 165cm, BMI: 31.3 kg/m�
Lab Values: Creatinine: 1 mg/dL, Hematocrit: 25.1%, WBC Count: 12.5 10�/�L, Platelet Count: 743645 cells/�L
Substance Abuse: Former smoker
Risk Factors / Comorbidities: Cancer <=5 yrs, Active Endocarditis, Hypertension, Immunocompromised
Vascular RF: Cerebrovascular Disease: CVA <=30 days
Cardiac Status: Ejection Fraction = 65%
Coronary Artery Disease: No coronary symptoms
Valve Disease: Mild MR
Arrhythmia: Recent A-fib, Paroxysmal
--- NOTE | 2024-08-09 13:07 | PTCARENOTE ---
TR band removed and dressing applied.
--- NOTE | 2024-08-09 14:14 | PTCARENOTE ---
Assessment unchanged; NSR on monitor and VSS.
--- NOTE | 2024-08-09 14:40 | PTOTSP ---
Speech Language Pathology
Pt seen for speech/language evaluations. No dysarthria/dysphonia noted. Language evaluated via the Quick Aphasia Battery (QAB), form 1. Pt with an overall score of 9.60, indicative of overall skills WFL. Scored 8.75 on repetition subtest
indicative of mild deficits, but all other subtests WFL.
Pt also seen for clinical bedside swallow evaluation. P.O. trials of regular solids, thin liquids, and mixed consistencies provided. Adequate mastication, bolus formation, and A-P transit noted with no oral residue. No overt signs of aspiration.
Recommend:
(1) Regular solids/thin liquids
(2) General aspiration precautions
(3) Meds as tolerated
(4) TREATING PLANT OPERATOR to continue to follow for likely brief follow up to ensure no swallowing changes post likely surgery. No further speech/language interventions necessary
--- NOTE | 2024-08-09 15:11 | W.PN.NEURO.1 ---
Today's Communication / Plan
-
.
Subjective/Objective
Subjective Data
Date of Service: August 09, 2024
Neurology follow-up note.
Ms. Dsouza reports no new complaints. She is scheduled for MV debridement +/- repair, ELAA, MAZE tomorrow. The patient states that she tolerated aspirin in the past with no reports of side effects.
Brain MRI showed several tiny foci of acute/subacute infarcts within the bilateral centrum semiovale/periventricular regions and right cerebellum.
DONNELL(08/08/2024) There is a mobile, spherical vegetation (measuring 0.9 x 0.7 x 0.7 cm) attached to the base of the P1/P2 segment at the posterior mitral valve leaflet.
PMH: SVT/atrial tachycardia, R Medullary breast cancer, HTN, hypothyroidism, h/o parotid gland pleomorphic adenoma, vitamin D deficiency
PSH: Bl lumpectomy, cholecystectomy, partial hysterectomy, left parotid mass excision, sacrocolpopexy, finger tumor radical resection
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
FH: Mother�asthma
All: Sulfas, penicillins, Cipro, cephalosporins,
ROS: Negative for headache, chest pain motor or sensory deficits
General: Well developed. In no acute distress.
Cardio: irregular rate and rhythm. Extremities are without cyanosis or edema.
Neuro:
Mental Status: Alert, oriented to person, place, and date. Impaired attention and comprehension. Follows simple requests. Nonfluent. No clear hemineglect
Cranial Nerves: No light perception on the left. Pupils are equally round and reactive to light. EOMs full. Visual patrick full to confrontation on the R. L ptosis. No nystagmus. Face symmetric. Impaired hearing AU. The palate elevated well.
SCMs and traps 5/5. Tongue midline. No dysarthria.
Motor: Right pronator and leg drift
Reflexes: Negative grasp bilaterally
Sensory: Absent vibration at the toes
Coordination: No dysmetria on the left
Gait: deferred
Assessment and Plan:
I. Acute/subacute bihemispheric embolic stroke. Likely etiology�cardioembolic.
II. Mitral valve vegetation.
III. PA A-Fib. [id number] score is 3
IV. Multifactorial encephalopathy (vascular, infectious)
V. Distal symmetric polyneuropathy affecting lower extremities.
-Continue Telemetry monitoring
-ASA 81 mg QD. No indications for statin therapy
-Cardiac surgery follow up
-DVT prophylaxis.
- Please recall neurology services any questions or concerns
I personally reviewed all radiology and labs along with past medical records pertinent to current medical problems. Total time spent in patient care is 35 minutes.
Thank you for allowing us to participate in the care of this patient. Please do not hesitate to contact us with any questions or concerns.
Objective Data
Vital Signs
Temp Pulse Resp BP Pulse Ox
36.6 C 82 23 112/69 94
08/09/24 10:44 08/09/24 14:10 08/09/24 14:10 08/09/24 14:00 08/09/24 14:10
Lab Results
08/09/24 04:41
PT 17.9 Sec (11.4-14.6) H 08/09/24 04:34
INR 1.46 08/09/24 04:34
APTT 29.5 Sec (23.4-35.0) 08/09/24 04:34
Sodium 139 mmol/L (135-145) 08/09/24 04:34
Potassium 2.9 mmol/L (3.5-5.1) L 08/09/24 04:34
BUN 16 mg/dl (7-17) 08/09/24 04:34
Glucose 115 mg/dl (70-99) H 08/09/24 04:34
Calcium 8.0 mg/dl (8.4-10.2) L 08/09/24 04:34
Phosphorus 2.9 mg/dl (2.5-4.5) 08/08/24 05:31
LDL Cholesterol, Calc 49 mg/dl 08/08/24 05:31
Vitamin B12 > 1000 pg/ml (239-931) H 08/08/24 13:30
Patient Allergies
apricot (Apricot) Allergy (Verified 09/01/15 14:39)
Hives
blueberry Allergy (Verified 08/03/24 21:44)
Hives
cefprozil (From Cefzil) Allergy (Verified 09/01/15 14:39)
Hives
Cephalosporins Allergy (Verified 05/24/24 10:58)
Unknown
ciprofloxacin (From Cipro) Allergy (Verified 05/24/24 10:58)
Unknown
dextromethorphan (From Kenyon DMT) Allergy (Verified 05/24/24 10:58)
Unknown
Penicillins Allergy (Verified 09/01/15 14:39)
Hives
pyrilamine (From Kenyon DMT) Allergy (Verified 05/24/24 10:58)
Unknown
scallops Allergy (Verified 05/24/24 11:02)
Unknown
Sulfa (Sulfonamide Antibiotics) (Sulfa(Sulfonamide Antibiotics)) Allergy (Verified 09/01/15 14:39)
Hives
sulfamethoxazole (From Bactrim) Allergy (Verified 09/01/15 14:39)
Hives
trimethoprim (From Bactrim) Allergy (Verified 09/01/15 14:39)
Hives
venom-honey bee Allergy (Verified 08/03/24 21:44)
Hives
Vital Signs and Labs
-
Vital Signs and Labs:
Vital Signs
Temp Pulse Resp BP Pulse Ox
36.6 C 82 23 112/69 94
08/09/24 10:44 08/09/24 14:10 08/09/24 14:10 08/09/24 14:00 08/09/24 14:10
Lab Results
08/09/24 04:41
PT 17.9 Sec (11.4-14.6) H 08/09/24 04:34
INR 1.46 08/09/24 04:34
APTT 29.5 Sec (23.4-35.0) 08/09/24 04:34
Sodium 139 mmol/L (135-145) 08/09/24 04:34
Potassium 2.9 mmol/L (3.5-5.1) L 08/09/24 04:34
BUN 16 mg/dl (7-17) 08/09/24 04:34
Glucose 115 mg/dl (70-99) H 08/09/24 04:34
Calcium 8.0 mg/dl (8.4-10.2) L 08/09/24 04:34
Phosphorus 2.9 mg/dl (2.5-4.5) 08/08/24 05:31
LDL Cholesterol, Calc 49 mg/dl 08/08/24 05:31
Vitamin B12 > 1000 pg/ml (239-931) H 08/08/24 13:30
Medications
-
Medications:
Generic Name Dose Route Start Last Admin
Trade Name Freq PRN Reason Stop Dose Admin
Acetaminophen 650 mg 08/03/24 00:03 08/05/24 21:41
Acetaminophen 325 Mg Tablet PO 08/31/24 00:02 650 mg
Q4HPRN PRN Administration
WYLIE/mild pain/temp > 100.4 F
Acetaminophen 650 mg 08/03/24 00:03
Acetaminophen 650 Mg Rectal Suppository RECTAL 08/31/24 00:02
Q4HPRN PRN
WYLIE/ mild pain/ temp >/= 100.4F
Amiodarone HCl 400 mg 08/05/24 20:00 08/09/24 08:28
Amiodarone 200 Mg Tablet PO 08/31/24 19:59 400 mg
BID SAM Administration
Diltiazem HCl 240 mg 08/04/24 08:00 08/09/24 08:29
Diltiazem 240 Mg Extended Release (24 H) Capsule PO 09/01/24 07:59 240 mg
On Hold: 08/09/24 10:42 DAILY SAM Administration
Heparin Sodium 25,000 units in 250 mls @ 0 mls/hr 08/02/24 21:45 08/03/24 20:35
Heparin 44156 Units/250 Ml IV 250 mls
On Hold: 08/03/24 21:45 PER PROTOCOL SMA Administration
Protocol
Per Protocol
Vancomycin HCl 1,250 mg/ 275 mls @ 183.33 mls/hr 08/09/24 06:00 08/09/24 05:45
Sodium Chloride IV 275 mls
Q12H SAM Administration
Protocol
Sodium Chloride 1,000 mls @ 0 mls/hr 08/09/24 10:15
Nss IV 08/10/24 10:15
PER PROTOCOL SAM
Protocol
Per Protocol
Vancomycin HCl 1,250 mg/ 275 mls @ 183.33 mls/hr 08/10/24 06:00
Sodium Chloride IV 08/10/24 07:29
CVOR@0600 ONE
Daptomycin 1,000 mg/ Device 20 mls @ 0 mls/hr 08/10/24 14:00
IV
DAILY@1200 SAM
As Directed
Lactobacillus/Bifidobacterium 1 cap 08/05/24 08:00 08/09/24 08:28
Lactobac/Bifidobac (Visbiome) PO 09/02/24 07:59 1 cap
DAILY SAM Administration
Levothyroxine Sodium 50 mcg 08/03/24 06:00 08/09/24 05:45
Levothyroxine 50 Mcg Tablet PO 08/31/24 05:59 50 mcg
DAILY @ 0600 SAM Administration
Loperamide HCl 2 mg 08/05/24 08:20 08/06/24 22:03
Loperamide 2 Mg Capsule PO 09/02/24 08:19 2 mg
Q4HPRN PRN Administration
diarrhea
Loratadine 10 mg 08/03/24 08:00 08/09/24 08:28
Loratadine 10 Mg Tablet PO 08/31/24 07:59 10 mg
DAILY SAM Administration
Lorazepam 0.5 mg 08/03/24 00:03 08/08/24 22:10
Lorazepam 0.5 Mg Tablet PO 08/31/24 00:02 0.5 mg
DAILYPRN PRN Administration
anxiety
Magnesium Oxide 500 mg 08/10/24 06:00
Magnesium Oxide 500 Mg Tablet PO 08/10/24 06:01
ONCE ONE
Metoprolol Tartrate 25 mg 08/10/24 06:00
Metoprolol 25 Mg Regular Release Tablet PO 08/10/24 06:01
ONCE ONE
Mupirocin 0 applic 08/10/24 06:00
Mupirocin 2% (Ointment) 22 Gram Tube NASAL 08/10/24 06:01
ONCE ONE
Ondansetron HCl 4 mg 08/03/24 00:03 08/03/24 21:50
Ondansetron 4 Mg/2 Ml Vial IV 08/31/24 00:02 4 mg
Q6HPRN PRN Administration
NAUSEA/VOMITING
Pantoprazole Sodium 40 mg 08/04/24 08:00 08/09/24 08:30
Pantoprazole Sodium 40 Mg/10 Ml Vial IV 09/01/24 07:59 40 mg
DAILY SAM Administration
Pantoprazole Sodium 40 mg 08/10/24 06:00
Pantoprazole 40 Mg Delayed Release Tablet PO 08/10/24 06:01
ONCE ONE
Sodium Chloride 0 flush 08/02/24 23:00 08/08/24 12:42
Sodium Chloride 0.9% (Flush) Syringe IV 08/30/24 22:59 2 flush
PER PROTOCOL SAM Administration
Sodium Chloride 10 ml 08/04/24 08:00 08/09/24 08:30
Sodium Chloride 0.9% (Preservative Free) 10 Ml Vial IV 09/01/24 07:59 10 ml
DAILY SAM Administration
Vancomycin HCl 125 mg 08/09/24 20:00
Vancomycin Oral Solution 50 Mg/Ml In Oral Syringe PO 09/28/24 08:01
BID SAM
Home Medications
-
Home Medications
lorazepam 0.5 mg tablet 0.5 mg PO DAILYPRN PRN anxiety 11/03/11
cyclobenzaprine 5 mg tablet 5 mg PO HS PRN muscles spasm 05/24/24
diltiazem HCl 240 mg capsule,extended release 24 hr (Cardizem CD) 240 mg PO DAILY Heart Disease/Condition 05/24/24
levothyroxine 50 mcg tablet 50 mcg PO DAILY Thyroid 05/24/24
loratadine 10 mg tablet 10 mg PO DAILY Allergies 05/24/24
naproxen 250 mg tablet 250 mg PO BID PRN mild pain 05/24/24
[2024-08-09 15:29] LABS: Blood Urea Nitrogen 15 mg/dl (7-17); Calcium 7.2 mg/dl (8.4-10.2); Carbon Dioxide 22 mmol/L (22-30); Chloride 113 mmol/L (98-107); Estimated Creatinine Clearance 67 ml/min; Glucose 98 mg/dl (70-99); Potassium 2.9 mmol/L (3.5-5.1); Sodium 139 mmol/L (135-145); eGFR > 60.00
[2024-08-09] MEDS: IMODIUM 2 MG PO (16:14)
[2024-08-09] MEDS: UROCIT-K 20 MEQ PO ×2 (16:14→20:36)
--- NOTE | 2024-08-09 16:14 | CM ---
CM following for DC planning needs.
Pt. transferred to CVICU from alternative floor.
Reviewed initial assessment. Pt. resides w/ spouse in a private, 2 STH w/ 5 IHSAN. 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
Pt. is currently undergoing chemotherapy for breast CA.
Pt. to undergo procedure tomorrow, which will determine whether she will go for CT Surgery.
Attempted to meet w/ patient at bedside. Pt. was sleeping soundly therefore I did not disturb.
CM to follow.
--- NOTE | 2024-08-09 17:04 | PTCARENOTE ---
Patient received from Lyric RN; AAOx3, drowsy but responds spontaneously to RN and follows commands; Pupils round, reactive, and equal; NIH 4 - left facial droop, RUE drift, left eye vision loss; Flat affect; VSS; NSR on monitor; +1 generalized
edema; +2 radial and DP pulses; Shallow respirations; SpO2 94-97% on 2L; Rectal trumpet draining brown, watery diarrhea; Poor appetite; Adair catheter draining clear, yellow urine; Right radial puncture covered with gauze and tegaderm - CDI, right
shoulder skin tear covered with silicone boarder foam - CDI, buttocks red and lotion applied; PIV x2 - #20 LAC, #22 right wrist; K 2.9 - MD Carlton notified and PO Potassium Citrate 20 mEq ordered, no further labs at this time; See nursing
documentation for further information
[2024-08-09] MEDS: KLOR-CON 40 MEQ PO (18:27)
[2024-08-09] MEDS: FIRVANQ 125 MG PO (20:37)
[2024-08-09] MEDS: ATIVAN 0.5 MG PO (22:05)
[2024-08-10] VITALS (17 sets, daily range): BP systolic 75–130; BP diastolic 48–81; BMI 31.7
[2024-08-10] LABS: Magnesium 1.7 mg/dl (1.6-2.3)
[2024-08-10] MEDS: MAGNESIUM SULFATE 102 GRAMS IV (00:25)
[2024-08-10] MEDS: CALCIUM GLUCONATE 100 IV ×2 (00:25→20:33)
[2024-08-10] MEDS: KCL 270 MEQ IV (00:26)
[2024-08-10 05:03] LABS: Glucose - Point of Care 110 mg/dl (70-99)
[2024-08-10] MEDS: BACTROBAN 2% OINTMENT 1 APPLIC NASAL ×2 (05:17→20:18)
[2024-08-10 05:20] LABS: Hematocrit 24.9 % (37.0-47.0); Hemoglobin 8.7 g/dL (12.0-16.0); Mean Corp Hgb Conc. 34.9 g/dL (33.0-37.0); Mean Corpuscular Hgb 33.5 pg (27.0-31.0); Mean Corpuscular Volume 95.8 fL (81.0-99.0); Mean Platelet Volume 11.5 fL (7.4-10.4); Platelet Count 171 10^3/uL (130-400); Red Cell Dist. Width 17.7 % (11.5-14.5); White Blood Cell Count 4.2 10^3/uL (4.8-10.8)
[2024-08-10] MEDS: MAGNESIUM OXIDE 500 MG PO (05:22)
[2024-08-10] MEDS: PROTONIX 40 MG PO (05:23)
[2024-08-10] MEDS: LOPRESSOR 25 MG PO (05:23)
[2024-08-10] MEDS: SYNTHROID 50 MCG PO (05:48)
[2024-08-10 05:53] LABS: Blood Urea Nitrogen 15 mg/dl (7-17); Calcium 8.1 mg/dl (8.4-10.2); Carbon Dioxide 20 mmol/L (22-30); Chloride 113 mmol/L (98-107); Estimated Creatinine Clearance 67 ml/min; Glucose 101 mg/dl (70-99); Potassium 4.1 mmol/L (3.5-5.1); Sodium 138 mmol/L (135-145); eGFR > 60.00
--- NOTE | 2024-08-10 06:10 | W.CVOR.SURPR ---
CVOR Surgeon Immed Pre Op
-
I have examined this patient prior to performance of the scheduled procedure.
The patient's condition is unchanged from the time of the dictated/written History and
Physical and the patient is able to undergo the scheduled procedure.
High Risk MVrR + MAZE + CLAUDIA E
--- NOTE | 2024-08-10 06:40 | PTCARENOTE ---
assumed care of patient at 1900, Patient alert and oriented, NIH 4 , left eye blindness S/P stoke 08/07. 2 PIV, Left forearm leaking and removed. added 2 additional PIVs, NSR on monitor, +2 pitting edema in hands and lower extremities. Pulse
normal. Lungs clear and diminished at bases. on 2 L NC. O2sat 95%, Bowel sound present had rectal tube water brown stool, 1L overnight. Temp Adair in place, clear yellow urine. denies pain
[2024-08-10] MEDS: ZOFRAN 4 MG IV (06:55)
--- NOTE | 2024-08-10 07:31 | W.PN.HOSP.TC ---
Addendum entered and electronically signed by Genevieve Carlton MD 08/10/24 17:13:
Unable to see or examine patient independently as pt went to cardiac surgery and is now transferred to CT surgery service.
Potassium is now normal with potassium citrate repletion rather than potassium chloride.
Please call with any questions.
Original Note:
Today's Communication/Plan
-
;/
Assessment / Plan
Assessment / Plan
Assessment/plan
#Mitral valve endocarditis
#MSSA bacteremia
#Sepsis secondary to chemotherapy port infection
#Allergy to cephalosporins
-2 sets of blood cultures positive for MSSA, s/p port removal
-Persistently positive blood culture
-Was Initially started on IV vancomycin, then transitioned to daptomycin, Now on IV vancomycin resumed 08/08 + daptomycin , as daptomycin does not cross blood brain-barrier
-DONNELL 08/08/2024; LVEF 60-65%, There is a mobile, spherical vegetation (measuring 0.9 x 0.7 x 0.7 cm) attached to the base of the P1/P2 segment at the posterior mitral valve leaflet.
-CT surgery consulted given DONNELL findings, plan for OR today
-Scheduled for sternotomy/MV vegetation debridement with possible repair
-pRE-OP workup studies done, including Dental Clearance.
-[facility] No obstructive coronary artery disease.
-ID following
-Continue to trend CBC and temperature curve
#Acute CVA likely embolic stroke etiology-Cardioembolic
-Acute painless loss of vision in the left eye yesterday evening
-Right-sided weakness more prominent in the lower extremity
-CTA head�no acute abnormalities
-CTA head/neck�no evidence of hemodynamically significant stenosis
-Brain MRI- Several tiny foci of nonhemorrhagic acute/subacute infarcts within the bilateral centrum semiovale/periventricular regions and right cerebellum.
-Neurology following
-Started on aspirin 81 mg daily.
#Coffee-ground emesis
#Anemia of chronic disease
-1 episode of coffee-ground emesis while here, hemoglobin has since stabilized
-Was on IV heparin drip with thrombocytopenia at the time, blood counts now improving
-GI consulted, was started on IV PPI, remains on regular diet
-Continue to trend CBC and monitor for bleeding
-Continue with IV PPI with pantoprazole 40 mg daily
-If recurrent or hemoglobin downtrends may need EGD
-Holding anticoagulation for OR procedure
#New onset paroxysmal AF with RVR
#H/O SVT/AT
-Developed new onset AF, [id number] 3; s/p IV amiodarone and heparin drip
-Has been initiated on amiodarone load, remains on home diltiazem
-Initially on amio 200 twice daily, has been increased to 400 twice daily
-Continue amiodarone and oral diltiazem
-Initially started on DOAC, but now holding for possible mitral valve surgery
#Pancytopenia
-Likely multifactorial with anemia of chronic disease and new leukopenia/thrombocytopenia from bacteremia
-Less likely related to chemotherapy, per oncology has had fairly stable CBC after on previous sessions
-White count and platelets improved with treatment of underlying sepsis
-Has not had absolute neutropenia, ANC consistently 0.6 or greater here
-Trend CBC with differential daily
-Supportive transfusions for bleeding, platelet <20, hemoglobin <7
-Has improved as of 08/07, will DC neutropenic precaution
#Renal tubular Acidosis Type 1
#Non Anion Gap metabolic acidosis
#Hypokalemia
-Has had persistent mild acidemia with hypokalemia despite repletion daily
-persistent Hypokalemia likely secondary to Type 1 RTA
-Urine Anion gap +9.2, Urine K 128.2
-Initiated on Potassium citrate 20mg BID
-K 4.1 today
-Follow BMP
#Hypophosphatemia-resolved
#Hypomagnesemia-resolved
#Hypocalcemia- resolved
#Diarrhea from chemotherapy
-Infectious workup negative for diarrhea, started on Imodium with improvement
-Trend BMP/Mag/Phos and replete as needed
-Continue Imodium PRN
#C. difficile colonization
-C. difficile antigen positive, toxin negative
-On oral vancomycin
-Monitor bowel status
#Breast cancer s/p double lumpectomy
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
-Status post double lumpectomy currently on adjuvant chemoradiation
-Status post chemotherapy port removal due to above, oncology says no longer needed
-Will need to follow-up after discharge with oncologist to resume chemo and XRT
#Hypothyroidism
-Continue levothyroxine supplementation
-No signs or symptoms of abnormal thyroid function here
DVT prophylaxis: SCDs(holding Eliquis)
GI prophylaxis: IV PPI
CODE STATUS: Full code
Anticipated Discharge: > 48 hours
Subjective/Interval History
-
Patient seen and examined at bedside. Without acute distress. Nervous about procedure today. Still with left eye vision loss. Complaining of Nausea and Vomiting. One episode of clear vomiting today. Currently NPO
Objective Data
-
Labs:
Laboratory Results
08/09/24 08/10/24 08/10/24
23:37 04:40 04:52
WBC 4.2 L
Hgb 8.7 L
Hct 24.9 L
Plt Count 171
Sodium 138
Potassium 3.0 L 4.1 D
Chloride 113 H
Carbon Dioxide 20 L
BUN 15
Creatinine 0.9
Glucose 101 H
Calcium 8.1 L
Vital Signs:
Vital Signs
Temp Pulse Resp BP Pulse Ox
99 F 91 26 120/73 96
08/10/24 06:00 08/10/24 06:00 08/10/24 06:00 08/10/24 05:23 08/10/24 06:00
I&O
08/09/24 08/10/24 08/11/24
06:59 06:59 06:59
Intake Total 750 / 750 1335 / 1335
Output Total 2500 / 2500 3325 / 3325
Balance -1750 / -175 -1989 /
Review of Systems
-
All other systems: Reviewed and negative (Except as documented)
Physical Exam
-
General: No Apparent Distress
Respiratory: Negative Wheezes
Cardiac: Regular Rhythm and S1/S2
GI: Soft, Nontender, Nondistended and Normal Bowel Sounds
Musculoskeletal: Edema, Right Lower Extrem, Edema, Left Lower Extrem and Other (3/5 muscular strength RLE, 5/5 muscular strength LLE)
Neuro: Awake, Alert, Oriented and AO x 3
Psych: Calm
--- NOTE | 2024-08-10 07:40 | PHA.VAN.FU ---
Addendum entered and electronically signed by Bessie Campbell [facility] 08/10/24 14:08:
0600 dose delayed to be given pre-op
Will delay 1800 dose to 2000 and resume standard [id number] schedule 08/11 599
Original Note:
Vancomycin Assessment / Plan
- Assessment
Renal Function: Stable
WBC's are: Trending Down (4.2 from 10.7)
In the past 24 hrs, patient has been: Afebrile
Concomitant Antimicrobials: Daptomycin
- Dosing Plan
Continue: Vancomycin 1250mg IV Q12H
- Follow Up
Pharmacy will continue to follow.
Vancomycin Follow UP
- -
Patient Age: 64
Patient Sex: Female
Vancomycin Day #: 3
Indication: Endocarditis
Requesting Provider: Dr Roy
Pertinent Antimicrobial Allergies:
Cefprozil - hives
cephalosporins - unknown
Ciprofloxacin - unknown
Penicillins - hives
Trimethoprim / sulfamethoxazole (Bactrim) - hives
Height / Weight:
Height 5 ft 5 in
Actual Weight 86.4 kg
Pertinent Past Medical History: Breast cancer (port)
- Vital Signs / Lab Results
Temp Pulse Resp BP Pulse Ox
99 F 91 26 120/73 96
08/10/24 06:00 08/10/24 06:00 08/10/24 06:00 08/10/24 05:23 08/10/24 06:00
Lab Results - Hematology
08/08/24 08/09/24 08/10/24
05:31 04:41 04:52
WBC 12.5 H 10.7 4.2 L
Band Neutrophils 0
Lab Results - Chemistry
08/07/24 08/08/24 08/09/24
21:56 05:31 04:34
BUN 11 12 16
Creatinine 0.9 0.9 1.0
Estimated Creat Clear 67 67 60
Albumin 2.7 L
08/09/24 08/10/24
14:46 04:40
BUN 15 15
Creatinine 0.9 0.9
Estimated Creat Clear 67 67
Albumin
Microbiology Results
08/09/24 04:34 Blood Culture - Preliminary
Blood/Venous Positive culture in progress
08/08/24 05:31 Blood Culture - Preliminary
Blood/Venous Positive culture in progress
Gram Stain - Preliminary
08/07/24 09:52 Blood Culture - Preliminary
Blood/Venous Staphylococcus aureus
Gram Stain - Preliminary
08/06/24 03:49 Blood Culture - Preliminary
Blood/Venous S aureus-Methicillin Sensitive
Gram Stain - Preliminary
08/06/24 03:30 Blood Culture - Preliminary
Blood/Venous S aureus-Methicillin Sensitive
Gram Stain - Preliminary
08/03/24 22:57 Salmonella/Shigella Culture - Final
Feces/Stool No Salmonella, Shigella, Aeromonas or Plesiomonas species
isolated.
Campylobacter Culture - Final
No Campylobacter species isolated.
Shiga Toxin Test - Final
No E. coli Shiga Toxin 1 or 2 detected.
Stool Leukocytes - Final
Therapeutic Drug Monitoring
Vancomycin Peak 26.2 ug/ml (18-26) H 08/04/24 21:39
Vancomycin Trough 14.9 ug/ml (5-20) 08/05/24 05:14
--- NOTE | 2024-08-10 08:00 | PTCARENOTE ---
assumed care of patient from prev RN, AAOx3. NIH 3. left eye only seeing shadows. slight facial droop but improved. R arm wekness but does not drop to bed. NSR on monitor, +2 pitting edema in hands and lower extremities wk pedals. 97%2L nc lungs
diminished at bases. hyperactive bowel sounds. +nausea/vomiting up bilious fluid. zofran given without much relief. rectal tube with watery stool. Adair in place, clear yellow urine. will continue to monitor. for CVOR this afternoon.
--- NOTE | 2024-08-10 08:33 | W.PN.UPDATE ---
Update Note
Progress Note Update
TEG obtained this morning resulting with 4% inhibition. Plan for CVOR today with Dr. Brian for MV debridement +/- repair, GRACIA TILLMAN.
--- NOTE | 2024-08-10 09:25 | W.PN.ID1 ---
Date of Service
Date of Service: August 10, 2024
Today's Communication
Continue daptomycin and IV Vanco.
Assessment / Plan
# Sustained Staphylococcus aureus (MSSA) bacteremia
# Catheter associated bloodstream infection from port, present on admission.
. 08/04 s/p port removed, cath tip MSSA
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
.08/08 DONNELL 0.9cm mobile vege attached to MV
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
# Acute urinary retention, peña placed 08/09/24
# Multiple antibiotic allergies including penicillin, cephalosporins, sulfa, cipro
# New onset Afib, now in sinus
# R Breast cancer on adjuvant chemotherapy
# Neutropenia (resolved) and Pancytopenia due to chemotherapy
- Blood cx's remain positive
- Continue to repeat blood cultures daily until at least 2 sets neg.
- Plan for MV repair today per Cardiothoracic.
- Continue high dose daptomycin 1g IV q24h (d4) for now
Follow weekly CK while on daptomycin.
-Continue IV Vancomycin (crosses blood-brain barrier)
Will eventually de-escalate abx's once patient is stabilized.
- Stool C. diff Ag+, toxin neg = colonization
- Continue prophylactic Vancomycin 125mg po daily while on systemic abx.
- Monitor stool output.
����������������������������������������������������������
Chief Complaint
-: Clinical Sepsis, Bacteremia and Other (endocarditis)
Subjective / Review of Systems
+ nausea improved with anti-nausea med.
Vital Signs / Physical Exam
Vital Signs
Vital Signs
Temp Pulse Resp BP Pulse Ox
99.8 F 80 20 116/73 95
08/10/24 08:00 08/10/24 08:20 08/10/24 08:20 08/10/24 08:00 08/10/24 08:20
Physical Exam
Constitutional: Acutely Ill
Cardiovascular: Regular Rate and S1/S2
Pulmonary: Clear (anteriorly)
Gastrointestinal: Soft, Non Tender, Non Distended and Other (FMS: light yellow stool )
Extremities: Edema
Objective Data
Lab Data
Lab Results
08/10/24 04:52
08/10/24 04:40
PT 17.9 Sec (11.4-14.6) H 08/09/24 04:34
INR 1.46 08/09/24 04:34
APTT 29.5 Sec (23.4-35.0) 08/09/24 04:34
Estimated Creat Clear 67 ml/min 08/10/24 04:40
Lactic Acid Cancelled 08/03/24 12:03
Total Bilirubin 0.9 mg/dl (0.2-1.3) 08/09/24 04:34
AST 42 U/L (14-36) H 08/09/24 04:34
ALT 38 U/L (0-35) H 08/09/24 04:34
Alkaline Phosphatase 118 U/L (38-126) 08/09/24 04:34
Most recent labs reviewed.
Micro Results:
08/09/24 04:34 Blood Culture - Preliminary
Blood/Venous Positive culture in progress
Gram Stain - Preliminary
08/07/24 09:52 Blood Culture - Preliminary
Blood/Venous S aureus-Methicillin Sensitive
Gram Stain - Preliminary
08/10/24 04:52 Blood Culture - Pending
Blood/Venous
08/08/24 05:31 Blood Culture - Preliminary
Blood/Venous Positive culture in progress
Gram Stain - Preliminary
08/06/24 03:49 Blood Culture - Preliminary
Blood/Venous S aureus-Methicillin Sensitive
Gram Stain - Preliminary
08/06/24 03:30 Blood Culture - Preliminary
Blood/Venous S aureus-Methicillin Sensitive
Gram Stain - Preliminary
08/03/24 22:57 Salmonella/Shigella Culture - Final
Feces/Stool No Salmonella, Shigella, Aeromonas or Plesiomonas species
isolated.
Campylobacter Culture - Final
No Campylobacter species isolated.
Shiga Toxin Test - Final
No E. coli Shiga Toxin 1 or 2 detected.
Stool Leukocytes - Final
08/05/24 09:33 Blood Culture - Preliminary
Blood/Venous S aureus-Methicillin Sensitive
Gram Stain - Preliminary
08/05/24 09:21 Blood Culture - Preliminary
Blood/Venous S aureus-Methicillin Sensitive
Gram Stain - Preliminary
08/04/24 08:18 Catheter Tip Culture - Final
Catheter Tip S aureus-Methicillin Sensitive
08/02/24 20:31 Blood Culture - Final
Blood/Venous S aureus-Methicillin Sensitive
Gram Stain - Final
08/03/24 21:45 Urine Culture - Final
Urine S aureus-Methicillin Sensitive
08/04/24 04:17 Blood Culture - Preliminary
Blood/Venous S aureus-Methicillin Sensitive
Gram Stain - Preliminary
08/04/24 04:17 Blood Culture - Preliminary
Blood/Venous S aureus-Methicillin Sensitive
Gram Stain - Preliminary
08/02/24 20:28 Urine Culture - Final
Urine S aureus-Methicillin Sensitive
08/02/24 20:27 Blood Culture - Final
Blood/Venous S aureus-Methicillin Sensitive
Gram Stain - Final
08/02/24 20:51 Blood Culture - Final
Blood/Venous S aureus-Methicillin Sensitive
Gram Stain - Final
08/03/24 22:57 C. difficile GDH Antigen & Toxins - Final
Feces/Stool C. difficile antigen positive, toxin negative.
Clostridium difficile present, but toxin not detected.
Patient may be a carrier, colonized with nontoxinogenic
strain or the level of toxin in sample is below detection
limits. This information should be used in conjunction with
the patient's clinical history.
- Final
Negative for Norovirus GI and GII.
08/02/24 20:39 Influenza Types A & B (DAHLIA) - Final
Nasal Swab Negative for Influenza A & B, NAAT
Negative results must be combined with clinical observations
and patient history.
Nucleic Acid Amplification test (NAAT)performed on the
Epic[employer]is platform.
08/08/24 Brain MRI: Several tiny foci of nonhemorrhagic acute/subacute infarcts within the bilateral centrum semiovale/periventricular regions and right cerebellum.
08/02/24 CXR: Probable infectious/inflammatory pneumonitis.
[2024-08-10] MEDS: FIRVANQ PO (10:15)
[2024-08-10] MEDS: CLARITIN PO (10:15)
[2024-08-10] MEDS: NSS (PRESERVATIVE FREE) IV (10:16)
[2024-08-10] MEDS: PACERONE PO ×3 (10:16→21:48)
[2024-08-10] MEDS: PROTONIX IV IV (10:16)
[2024-08-10] MEDS: UROCIT-K PO (10:17)
[2024-08-10] MEDS: VISBIOME PO (10:56)
--- NOTE | 2024-08-10 11:37 | CM ---
CM following for DC planning needs.
Met w/ patient's spouse + patient's friend at bedside. Patient present, but sleeping.
Reviewed CM role.
Spouse confirmed initial assessment. Pt. resides w/ spouse in a private, 2 STH w 5 IHSAN. 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 at baseline w/ ADLs, mobility without the use of any assisted device. Pt. is not working but does some work 'on the side'. She
has been receiving breast cancer treatment since May; diagnosed in February,.
We discussed pre op and post op routines.
We reviewed post op restrictions to include lifting, driving, flying, sternal precautions.
We discussed possible DC needs. Pt. significantly weakened from hospitalization and was far from functional baseline during PT eval earlier in the hospital stay. I anticipate that patient will need rehab, acute v. SNF based on activity tolerance.
She would benefit from PT eval + PMR eval post op to assess functional status and determine needs.
CM to follow closely.
[2024-08-10 11:50] LABS: ACT+ - POC 134 Seconds (82-134)
[2024-08-10 13:05] LABS: ACT+ - POC 680 Seconds (82-134)
[2024-08-10 13:26] LABS: ACT+ - POC 631 Seconds (82-134)
[2024-08-10 14:01] LABS: ACT+ - POC 612 Seconds (82-134)
[2024-08-10 14:51] LABS: ACT+ - POC 148 Seconds (82-134)
[2024-08-10 15:09] LABS: B.E. - POC -2.1 mmol/L; Glucose - POC 124 mg/dl (70-99); HCO3 - POC 23 mmol/L (21-28); Hematocrit - POC 28 % PCV (37-47); Hemodilution- POC No; Hemoglobin Calculated - POC 9.4; Ionized Calcium - POC 1.23 mmol/L (1.15-1.33); Lactate - POC < 0.30 mmol/L (0.36-0.75); O2 Saturation %Calculated-POC 99.9 % (94-98); PCO2 - POC 38 mmHg (35-48); PO2 - POC 364 mmHg (83-108); POC Comment PRE; Potassium - POC 3.1 mmol/L (3.5-5.1); Sodium - POC 143 mmol/L (136-145); Specimen Type - POC Arterial; pH - POC 7.38 (7.35-7.45)
[2024-08-10 15:10] LABS: B.E. - POC 1.2 mmol/L; Glucose - POC 115 mg/dl (70-99); HCO3 - POC 25 mmol/L (21-28); Hematocrit - POC 20 % PCV (37-47); Hemodilution- POC Yes; Hemoglobin Calculated - POC 6.7; Ionized Calcium - POC 1.01 mmol/L (1.15-1.33); Lactate - POC < 0.30 mmol/L (0.36-0.75); PCO2 - POC 35 mmHg (35-48); PO2 - POC 425 mmHg (83-108); POC Comment CPB; Potassium - POC 4.3 mmol/L (3.5-5.1); Sodium - POC 141 mmol/L (136-145); Specimen Type - POC Arterial; pH - POC 7.46 (7.35-7.45)
[2024-08-10 15:10] LABS: B.E. - POC -1.1 mmol/L; Glucose - POC 141 mg/dl (70-99); HCO3 - POC 23 mmol/L (21-28); Hematocrit - POC 26 % PCV (37-47); Hemodilution- POC Yes; Hemoglobin Calculated - POC 8.7; Ionized Calcium - POC 1.11 mmol/L (1.15-1.33); Lactate - POC < 0.30 mmol/L (0.36-0.75); PCO2 - POC 37 mmHg (35-48); PO2 - POC 433 mmHg (83-108); Potassium - POC 4.2 mmol/L (3.5-5.1); Sodium - POC 142 mmol/L (136-145); Specimen Type - POC Arterial; pH - POC 7.41 (7.35-7.45)
[2024-08-10 15:10] LABS: B.E. - POC -0.9 mmol/L; Glucose - POC 142 mg/dl (70-99); HCO3 - POC 27 mmol/L (21-28); Hematocrit - POC 26 % PCV (37-47); Hemodilution- POC Yes; Hemoglobin Calculated - POC 8.9; Ionized Calcium - POC 1.18 mmol/L (1.15-1.33); Lactate - POC < 0.30 mmol/L (0.36-0.75); PCO2 - POC 60 mmHg (35-48); PO2 - POC 503 mmHg (83-108); POC Comment CPB; Potassium - POC 4.1 mmol/L (3.5-5.1); Sodium - POC 144 mmol/L (136-145); Specimen Type - POC Arterial; pH - POC 7.26 (7.35-7.45)
[2024-08-10] MEDS: TYLENOL PO ×2 (15:22→21:49)
[2024-08-10 15:23] LABS: B.E. - POC -4.1 mmol/L; Glucose - POC 152 mg/dl (70-99); HCO3 - POC 21 mmol/L (21-28); Hematocrit - POC 30 % PCV (37-47); Hemodilution- POC Yes; Hemoglobin Calculated - POC 10.1; Ionized Calcium - POC 1.22 mmol/L (1.15-1.33); Lactate - POC 1.59 mmol/L (0.36-0.75); O2 Saturation %Calculated-POC 98.4 % (94-98); PCO2 - POC 35 mmHg (35-48); PO2 - POC 114 mmHg (83-108); POC Comment POST; Potassium - POC 3.7 mmol/L (3.5-5.1); Sodium - POC 141 mmol/L (136-145); Specimen Type - POC Arterial; pH - POC 7.37 (7.35-7.45)
--- NOTE | 2024-08-10 15:43 | W.PN.CT.SURG ---
CT Surgery Operative Note
-
CARDIAC SURGERY OPERATIVE REPORT
Preoperative Diagnosis: Mitral valve endocarditis with embolic phenomenon, moderate mitral valve insufficiency
Postoperative Diagnosis: Same
Procedure(s) Performed:
1. Standard sternotomy with aortic and bicaval cannulation
2. Open left sided maze procedure [cryoablation]
3. Left atrial appendage exclusion [35 mm clip]
4. Radical mitral valve repair [debridement of annulus, patch repair, annuloplasty with 30 mm band]
5. Placement of temporary atrial ventricular pacing wires
6. Transesophageal echocardiographic
7. Rigid sternal fixation with plates
Date of Surgery: 08/10/2024
Comorbidities:
1. Mitral valve endocarditis with embolic phenomenon and sepsis
2. Multiple CVAs
3. Acute metabolic encephalopathy
4. Active breast cancer on chemotherapy
5. Chemotherapy induced diarrhea
6. Multiple electrolyte imbalances
7. Paroxysmal atrial fibrillation
8. Immunocompromise
9. Acute hypoxic respiratory failure
10. Morbid obesity BMI greater than 30
Attending Surgeon: Clint Brian MD, MS
Assistants: Dacia Muller PA-C (present and necessary to heel sprayer first, retraction, suction, exposure, suture management, and wound closure under my direction)
Anesthesiology: Henrique Fritz MD and Levi Norton CRNA
Scrub and Circulating RNs: Geetha Madison RN, Heather Collier RN
Sisal Picker: Kolby Pickett CCP
Anesthesia: GETA
EBL: per perfusion records
Products: 2 prbs, 2 plts, Factor VII
CPB Time: 74 minutes
Aortic Cross Clamp Time: 62 minutes
Indication(s) for Procedures: This is a 64-year-old female with multiple comorbidities including active cancer and chemotherapy. She was found to have bacteremia with persistent positive blood cultures. She also had a vegetation on her mitral
valve consistent with mitral valve endocarditis. She has had subsequent multiple strokes and so surgery was consulted for possible resection/repair of her mitral valve. She was quoted a 10% mortality risk given her immunocompromise state and
recent strokes. Overall sure decision-making team herself her and myself was to pursue high risk surgical intervention.
Mitral Valve Description: The valve itself was okay, the leaflets were unaffected, there was a large vegetation towards the P1 P2 side with infection into the annulus that extended medially towards an area of MAC that extended up towards the
anterior leaflet.
Findings: Her left ventricular ejection fraction was 60% with no significant regional wall motion abnormalities. Following surgery her EF remained the same at 60% with no new regional wall motion abnormalities. RV was normal size and function.
Her mitral valve leaflets itself were unaffected however she had a large vegetation at the P1 P2 aspect of the mitral annulus. The mitral annulus was also infected with spreading medially towards the area of mitral annular calcification. There was
MAC that extended up towards the posterior medial trigone of the valve. This area was debrided using a sucker and gentle probing. I initially placed a suture at her P2 P3 cleft but ultimately took this out as I felt there was more leakage on
saline inflation. The annulus was packed with bovine pericardium and the area was thoroughly cleaned off and also soaked with Betadine diluted solution. The valve was also soaked in antibiotic solution. A total of 11 2-0 nonpledgeted Ethibond
sutures were placed from trigone to trigone securing a [address]. Again bovine pericardium was placed between the annulus and the patch with the sutures going through it. Dynamic inflation of the ventricle revealed no significant
residual insufficiency. After coming off cardiopulmonary bypass there was no residual leak and the mean gradient across the valve was 2. As I already had access to the left atrium, a full left atrial maze was performed using cryo only after the
heart was arrested. The left atrial appendage was also opened up prior to ligation to ensure that there was no vegetations within it. She was expectedly oozy coming off cardiopulmonary bypass which is most from the marrow, blood products were
given as well as factor VII. After short period of AV pacing she regained her hoopa sinus rhythm.
Ablation Lines:
1. Box lesion to posterior LA wall
2. CLAUDIA lesion + CLAUDIA Exclusion
3. Coronary sinus lesion
4. Posterior mitral annular line toward P2/P3
Specimen(s): Vegetation sent for cultures.
Prosthesis:
1. 30 mm Andrew physio flex band annuloplasty, serial #[id number]
2. 35mm left atrial appendage clip, serial #[id number]
3. Bovine pericardial patch, serial number [id number]
4. 1 anderson flat mustache plate (14 mm screws x 4), 1 gold curved to square plate (12 mm screws x 4), 1 gold mustache plate (12 mm screws x 4),
Description of Procedure: The patient was taken to the operating room. Their identity and procedure to be performed were verified and they were positioned supine on the operating table. Induction via general anesthesia with endotracheal intubation
was performed and central venous access and arterial monitoring were inserted. A preoperative transesophageal echocardiogram was performed to assess cardiac function and valvular function. The patient was then prepped and draped from chin to feet in
a sterile fashion. A preoperative time-out was performed with all members of the team present. A midline chest incision was performed along with median sternotomy. The innominate vein was isolated. Full heparinization was given (a total of 50,000
units). We created a pericardial well. The aortic cannulation site was chosen where it was soft, pliable, and free of calcium. Cannulation was performed with an arterial cannula in the ascending aorta, angled metal tip cannular in the superior vena
cava and straight bendable cannula in the inferior vena cava. The arterial cannula line had an appropriate bounce and correlating pressures. Next, a root vent/antegrade cannula was inserted into the ascending aorta. The ACT was confirmed to be over
400 and retrograde autologous priming was performed before commencing cardiopulmonary bypass. The pulmonary artery was away from the aorta to facilitate a clamp site. Sondergaard�s groove was developed after creating the oblique sinus. The
aortic cross-clamp was placed after decreasing the flow on the bypass and mean arterial pressure. A total of 1.2L initial dose of antegrade Del-Nido cardioplegia solution was given and planned for re-dosing every 60 minutes as necessary. There was
rapid electro-mechanical arrest of the heart at 300 cc of cardioplegia. The left ventricle was observed for distention on echocardiogram and manual palpation. Cold slush was placed into a lap on the RV and we systemically cooled to 34 degrees
centigrade. Once the heart was fully arrested was rotated medially and the left atrial appendage tip was cut off. We surveyed inside and found no vegetations. The left atrial appendage was then clipped flush the base with a 35 mm device
Carbon dioxide was used to flood the field. The mitral valve was access via the left atrium followed by valve analysis. At this point I performed the cryo maze ablation lines. The mitral valve was repaired as described above. Deairing maneuvers
were performed while the left atrium was closed with a 3-0 prolene in a single layer.
Additional de-airing maneuvers were performed and temporary bipolar ventricular pacing wires were placed on the base of the right ventricle as well as temporary atrial pacing wires at the SVC right atrial junction. The patient was placed in a
Trendelenburg position and flows on bypass were lowered. The aortic cross clamp was removed and flows were slowly brought back up. The left atrial suture line was hemostatic. Transesophageal echocardiography revealed no evidence of systolic
anterior motion and ventricular function was normal. Once de-airing was satisfactory the left ventricular and root vents were removed. After verifying acceptable parameters, we initiated weaning from cardiopulmonary bypass. Once we were off
cardiopulmonary bypass, the venous cannulas was clamped and removed sequentially. A test dose of protamine was administered and the patient was monitored for any adverse reaction before resuming protamine. Once half of the protamine dose was
delivered, pump suckers were turned off and the systolic blood pressure was lowered for aortic decannulation. The aortic cannula was removed and purse strings were tied down. All cannulation sites were oversewn with a 4-0 prolene. The left atrial
suture line was inspected and hemostasis was confirmed. Mediastinal hemostasis was obtained. Two #24 Daryl drains were placed within the pericardium. The sternum was approximated with 4 #7 single and 3 #8 double stainless steel wires. Given her
immunocompromise state, morbid obesity, and infection, I opted to rigidly fixate her sternum. Fascia was approximated with #1 vicryl suture. The subcutaneous, dermis and epidermis were closed in layers in a running fashion. The skin wound was
cleansed and dressed.
All instrument, sponge, and needle counts were confirmed to be correct x 2 at the end of the operation. The patient was transferred to the cardiac intensive care unit in critical but stable condition.
I, Dr. Clint Brian, was present, scrubbed for, and performed all critical elements of this procedure.
Clint Brian MD, MS
Cardiothoracic Surgeon
[facility]
This dictation was created using the VNG dictation system. Please excuse any grammatical, typographical, or 'sound alike' errors
[2024-08-10 15:54] LABS: Glucose - Point of Care 167 mg/dl (70-99)
[2024-08-10 16:03] LABS: Ionized Calcium 1.18 mMOL/L (1.15-1.33); O2 Saturation % 97.3 % (94-98); PCO2 38 mmHg (32-35); PO2 72 mmHg (83-108); Potassium 3.4 mMOL/L (3.5-5.1); Sodium 137 mMOL/L (136-145); pH 7.37 (7.35-7.45)
--- NOTE | 2024-08-10 16:04 | CON.INTV ---
Consultation
Consultation Request
Date/Time Consultation Requested: 08/10/2024
Date/Time Consultation Performed: 08/10/2024
Requesting Provider: Dr. Brian
Performing Provider: Dr. Arturo Romero
Reason for Consultation: Postoperative care-status post mitral valve
Medical History
-
History of Present Illness:
64-year-old woman with past medical history significant for SVT/atrial tachycardia, hypertension, hyperlipidemia, recent diagnosis of breast cancer presented to the emergency department with weakness and reduced responsiveness found to be
hypotensive, tachycardic, febrile and admitted for sepsis on 08/02/2024. Patient currently on adjuvant chemotherapy.
She was found to be bacteremic with MSSA. Persistent blood cultures.
Possible catheter associated bloodstream infection she has a port for her chemotherapy.
Started on proper antibiotics.
Patient has a port in place it was discontinued.
While in the hospital also developed rapid atrial fibrillation. Cardiology is following.
During the hospital stay developed acute bihemispheric embolic stroke.
DONNELL 08/08/2024 show mitral valve vegetation. Mild MR.
Subsequently CT surgery was consulted for ongoing embolic phenomena despite proper antibiotics.
Underwent mitral valve debridement and repair on 08/08/2024 and transferred to the CVICU.
During my evaluation.
Past Medical History
Past Medical History: Other (See assessment and plan)
Social History
Tobacco: Non-smoker
Alcohol: None
Drug: None
Personal:
Living: With Family
Family History
Family History: Reviewed & Not Pertinent
Allergies / Home Medications
Allergies
Allergy/AdvReac Type Severity Reaction Status Date / Time
apricot (Apricot) Allergy Hives Verified 09/01/15 14:39
blueberry Allergy Hives Verified 08/03/24 21:44
cefprozil (From Cefzil) Allergy Hives Verified 09/01/15 14:39
Cephalosporins Allergy Unknown Verified 05/24/24 10:58
ciprofloxacin (From Cipro) Allergy Unknown Verified 05/24/24 10:58
dextromethorphan (From Allergy Unknown Verified 05/24/24 10:58
[place] DMT)
Penicillins Allergy Hives Verified 09/01/15 14:39
pyrilamine (From [place] DMT) Allergy Unknown Verified 05/24/24 10:58
scallops Allergy Unknown Verified 05/24/24 11:02
Sulfa (Sulfonamide Allergy Hives Verified 09/01/15 14:39
Antibiotics)
(Sulfa(Sulfonamide
Antibiotics))
sulfamethoxazole (From Allergy Hives Verified 09/01/15 14:39
Bactrim)
trimethoprim (From Bactrim) Allergy Hives Verified 09/01/15 14:39
venom-honey bee Allergy Hives Verified 08/03/24 21:44
Home Medications
�Medication �Instructions �Recorded �Confirmed �Last Taken �Type
lorazepam 0.5 mg tablet 0.5 mg PO DAILYPRN PRN anxiety 11/03/11 08/05/24 Unknown History
cyclobenzaprine 5 mg tablet 5 mg PO HS PRN muscles spasm 05/24/24 08/05/24 Unknown History
diltiazem HCl 240 mg 240 mg PO DAILY Heart 05/24/24 08/05/24 Unknown History
capsule,extended release 24 hr Disease/Condition
(Cardizem CD)
levothyroxine 50 mcg tablet 50 mcg PO DAILY Thyroid 05/24/24 08/05/24 Unknown History
loratadine 10 mg tablet 10 mg PO DAILY Allergies 05/24/24 08/05/24 Unknown History
naproxen 250 mg tablet 250 mg PO BID PRN mild pain 05/24/24 08/05/24 Unknown History
Review of Systems
-
Unable to Obtain full review of systems at this time due to: Patient Intubation
Vitals / Labs / Diagnostic Testing
Vital Signs
Temp Pulse Resp BP Pulse Ox
96.1 F L 70 16 119/78 100
08/10/24 16:00 08/10/24 16:00 08/10/24 16:00 08/10/24 10:00 08/10/24 16:00
Laboratory Results
08/10/24
15:50
pH 7.37
pCO2 38 H
pO2 72 L
HCO3 22.0
O2 Delivery Level
Microbiology
08/09/24 04:34 Blood/Venous Blood Culture - Preliminary
Positive culture in progress
08/09/24 04:34 Blood/Venous Gram Stain - Preliminary
08/07/24 09:52 Blood/Venous Blood Culture - Preliminary
S aureus-Methicillin Sensitive
08/07/24 09:52 Blood/Venous Gram Stain - Preliminary
08/08/24 05:31 Blood/Venous Blood Culture - Preliminary
Positive culture in progress
08/08/24 05:31 Blood/Venous Gram Stain - Preliminary
08/06/24 03:49 Blood/Venous Blood Culture - Preliminary
S aureus-Methicillin Sensitive
08/06/24 03:49 Blood/Venous Gram Stain - Preliminary
08/06/24 03:30 Blood/Venous Blood Culture - Preliminary
S aureus-Methicillin Sensitive
08/06/24 03:30 Blood/Venous Gram Stain - Preliminary
08/03/24 22:57 Feces/Stool Salmonella/Shigella Culture - Final
No Salmonella, Shigella, Aeromonas or Plesiomonas species
isolated.
08/03/24 22:57 Feces/Stool Campylobacter Culture - Final
No Campylobacter species isolated.
08/03/24 22:57 Feces/Stool Shiga Toxin Test - Final
No E. coli Shiga Toxin 1 or 2 detected.
08/03/24 22:57 Feces/Stool Stool Leukocytes - Final
Diagnostic Testing:
Physical Exam
-
HEENT: Normocephalic and Other (ET tube in place without secretion)
Cardiovascular: S1/S2
Respiratory: Clear
GI: Non Distended
Neurology: Other (Sedated on mechanical ventilation)
Skin: Warm
General: Comfortable
Assessment
-
64-year-old woman with past medical history noted. Admitted initially with change in mental status and sepsis. Found to have MSSA bacteremia. During the hospital stay developed atrial fibrillation, cardioembolic strokes possibly from infective
endocarditis. Mitral valve vegetation. Due to persistent cardioembolic events and positive blood cultures underwent mitral valve debridement and repair on 08/10/2024.
Critical care team consulted for postoperative management
Status post mitral valve debridement and repair 08/10/2024 Dr. Brian
Methicillin sensitive Staph aureus bacteremia/endocarditis-persistent embolic events despite proper antibiotics.
08/08 DONNELL 0.9cm mobile vege attached to MV
Cardioembolic CVA during this admission-left vision loss
Right breast cancer on adjuvant chemotherapy-immunosuppressed.
Port in place-present on admission-status post removal 08/04/2024. Catheter tip positive for Staph aureus. Neutropenic/pancytopenic due to chemotherapy
Conditions present prior admission:
Right breast cancer status post lumpectomy with sentinel node dissection-on adjuvant chemotherapy
Hypertension
Hyperlipidemia
Hypothyroidism
Valvular disease-mitral regurg
Atrial fibrillation
History of laparoscopic hysterectomy
Cholecystectomy
Left parotid tumor resection
-
Assessment plan:
Postoperative day 0-currently on mechanical ventilation and appears comfortable.
Hemodynamics are tenuous.
ABG reviewed: Adequate ventilation and oxygenation
Continue SIMV mode with no change
Spontaneous breathing trial per protocol once sedation wears off.
Infective endocarditis: Related to her port that has been discontinued.
Follow fever curve and leukocytosis.
Persistent positive MSSA blood cultures
Appropriate antibiotics per infectious disease-daptomycin and vancomycin.
Last positive blood culture 08/09/2024.
Repeat cultures pending
Anemia noted-no evidence of acute bleeding
Thrombocytopenia noted
Follow H&H serially
Hemodynamics -on vasopressin/Levophed/dobutamine wean off as able.
Will follow hemodynamics
Continue to wean down as able
Atrial fibrillation: Rate controlled
Eventual to start anticoagulation once cleared by neurology
antiplatelet
Diuresis as able
Cardiology following patient.
Cardioembolic CVA:
Likely due to infective endocarditis.
Neurology correspondence reviewed
Continue to follow neurological status
Eventual anticoagulation for atrial fibrillation
Chest tube with no excessive drainage-no air leak.
Chest x-ray reviewed: With no pneumothorax or fluid collections.
Chronic diarrhea-benign abdominal exam-? UTI
NG tube in place
Fecal management
Remain nothing by mouth
Head of the bed elevation
Glycemic control per protocol
DVT prophylaxis when safe from the surgical perspective.
Prognosis guarded
Critical care statement: A total of 35 minutes of critical care time was provided for this patient today. This includes management of unstable vital signs, evaluation of the patient at bedside, reviewing the patient's pertinent medical records
including ventilator settings, arterial blood gases, radiographs, microbiology, laboratory evaluations and discussion with primary team, critical care nursing, and respiratory therapy.
[2024-08-10 16:05] LABS: Mixed Venous O2 Saturation 60.4 %
[2024-08-10 16:12] LABS: APTT 31.2 Sec (23.4-35.0)
[2024-08-10 16:13] LABS: B.E. - POC -1.9 mmol/L; Blood Urea Nitrogen - POC 16 mg/dl (3-120); Chloride - POC 109 mmol/L (96-111); Creatinine - POC 1.02 mg/dl (0.3-1.0); Glucose - POC 164 mg/dl (70-99); HCO3 - POC 23 mmol/L (21-28); Hematocrit - POC 27 % PCV (37-47); Hemodilution- POC Yes; Hemoglobin Calculated - POC 9.2; Ionized Calcium - POC 1.19 mmol/L (1.15-1.33); Lactate - POC 1.35 mmol/L (0.36-0.75); PCO2 - POC 36 mmHg (35-48); PO2 - POC 71 mmHg (83-108); Potassium - POC 3.2 mmol/L (3.5-5.1); Sodium - POC 144 mmol/L (136-145); Specimen Type - POC Arterial
[2024-08-10] MEDS: KCL 50 IV ×4 (16:15→22:49)
[2024-08-10 16:18] LABS: Hematocrit 27.6 % (37.0-47.0); Hemoglobin 9.6 g/dL (12.0-16.0); Platelet Count 94 10^3/uL (130-400)
[2024-08-10] MEDS: NEURONTIN PO ×2 (16:22→21:47)
[2024-08-10] MEDS: NSS 500 IV (16:22)
[2024-08-10 16:23] LABS: INR 0.95; PT 13.1 Sec (11.4-14.6)
[2024-08-10] MEDS: AZACTAM 2000 MG IV (16:23)
[2024-08-10] MEDS: VANCOCIN 275 MG IV ×2 (16:25→20:47)
[2024-08-10 16:26] LABS: Blood Urea Nitrogen 16 mg/dl (7-17); Estimated Creatinine Clearance 61 ml/min; Glucose 161 mg/dl (70-99); Magnesium 2.4 mg/dl (1.6-2.3)
[2024-08-10] MEDS: CUBICIN 20 MG IV (16:32)
[2024-08-10 16:33] LABS: Fibrinogen 294 MG/DL (199-459)
--- NOTE | 2024-08-10 16:34 | W.PN.UPDATE ---
Update Note
Progress Note Update
Crystalloid:� 1200 mL
U.O.:� 200 mL
UF:� 2450 mL
Blood:� 2 Plt, 2 pRBC
Wires:� A-V epicardial to back-up
Inotropes:� Dobutamine (2)
Pressors:� Vasopressin (0.04)
Sedatives:� Precedex (0.5)
�
NEURO: sedated on Precedex, pupils +2mm B/L, PERRLA.
RESP: #8OT @22cm> 450/60%/16/10. Lungs clear B/L. 2 mediastinal (60cc on arrival) chest tubes to -20cm suction, no air leak/crepitus. Sanguineous drainage.
CV: RRR +S1, S2, no S3, no�rub, no murmur. RAYMOND dressing to median sternotomy. RIJ w/[place] locked @ 45cm. PA 24/15; CVP 6; CI 1.34
ABD: round, soft, +BS, OGT present - low intermittent-suction, rectal trumpet - draining light/brown stool
EXT: no edema, +2/4 DP pulses B/L, R radial A-line intact
: Adair with clear yellow urine
�
A/P: POD #0 s/p MVR, MAZE, & CLAUDIA clip
DONNELL: EF�55-60%
- Goal to wean and extubate
- Maintain PEEP at 10 until coagulopathy corrected
- Following extubation, replace OGT with NGT to low-intermittent suction
- Goal SBP 90-110 mmHg
- ID consulted for endocarditis, recs appreciated
- BC positive for MSSA
- Maintain Daptomycin q24h, Vancomycin IV q12h
- Con't insulin infusion x 48 h (Hgb A1C 6.4)
- will need instruction regarding antibiotic prophylaxis for dental and invasive procedures
�
# acute surgical blood loss anemia-expected
- 3 u pRBC total (1 pre-op, 2 intra-op)
- 2 Plt (intra-op)
- Transfuse 2 FFP & 1 Plt now for coagulopathy
- Consider Cryo pending Fibrinogen
- Trend CBC
�
# Acute Urinary Retention
- acute urinary retention pre-operatively requiring placement of indwelling urinary catheter
- maintain indwelling catheter
�
# Acute, Embolic CVA
- cardioembolic secondary to endocarditis
- CT head & neck without abnormalities
- MRI brain showing multiple tiny embolic events without hemorrhage
- Resume ASA & statin post-operatively
- Neurology consulted, rec's appreciated
#pAF with RVR
- new onset, on Cardizem & Amiodarone pre-operative, Cardizem on hold, Amio resumed at 200 mg TID
- Cardiology consulted, rec's appreciated
[2024-08-10] MEDS: STERILE WATER FOR INJECTION 10 ML IV (16:35)
--- NOTE | 2024-08-10 16:45 | PTCARENOTE ---
Patient received from CVOR s/p MV repair/MAZE/LAAL. RIJ Cordis/Lynn-Eugenia catheter, L radial arterial lines present - leveled, flushed, and calibrated w/good waveforms returned. Epicardial A+V pacing wires to pulse generator set to back up rate
45bpm, no spikes noted. Mediastinal chest tubes x 2, Y-connected to one pleurevac, placed to -20cm suction w/no air leak noted. OGT placed to LIWS, brown drainage noted. Adair catheter to gravity. Rectal trumpet to collection chamber. Sternal
dressing w/RAYMOND drain, scant drainage from CVOR. Labs drawn, EKG performed, pcxr obtained. Dr. Brian, SMOOTH updated to status including chest tube drainage. See work list for full assessment, interventions performed, and intravenous infusion rates and
titrations.
--- NOTE | 2024-08-10 16:46 | W.PN.CD ---
Addendum entered and electronically signed by Dwain Perez MD 08/10/24 17:06:
I saw and examined the patient.
The RUBBERIZING MECHANIC's note was reviewed and I agree with the note.
Comment: Patient receiving platelets requiring inotropic support.
Wean pressors as able.
Cont to wean ventilator
Original Note:
Today's Communication / Plan
-
Close post-op management and care with weaning of drips and vent as tolerated per CT surgery/CVICU protocol
Impression / Plan
-
Card: Espinoza (for palps, AT/PSVT)
Mitral valve endocarditis, mitral regurgitation:
-s/p radical mitral valve repair [debridement of annulus, patch repair, annuloplasty with 30 mm band], open left sided maze procedure [cryoablation], left atrial appendage exclusion [35 mm clip], Dr. Brian 08/10/24
-post-op, she is on Levophed, dobutamine, and vasopressin, all of which require intensive monitoring
-post-op EKG SR, some ST abnormalities, monitor
-getting platelets and FFP post-op
-CT's and peña in place
-intubated and ventilated post-op
Sepsis due to MSSA bacteremia:
-Suspected source is Chemo port with cath tip growing Staph aureus. Blood cultures remain positive as recently as 08/07/2024
-DONNELL 08/08/2024: LVEF 60-65%, mobile vegetation attached to the base of P1/P2 segment of MV (0.9 x 0.7 x 0.7 cm), mild MR
-ID following- ABX management per ID
Concern for CVA
- MRI 08/08/2024: 'Several tiny foci of nonhemorrhagic acute/subacute infarcts within the bilateral centrum semiovale/periventricular regions and right cerebellum'.
- L eye vision loss on 08/07 PM. Stroke alert called
- Head/neck CTA and brain CT unremarkable on 08/07
- Neuro involved: see their note for details
PAF, RVR
- AFib is NEW this admit. Likely due to sepsis
- Anticipate at least several months of Amio- on dilt ER 240 a day and amiodarone 400 mg twice daily pre-op
- she is s/p MAZE/CLAUDIA clip as above
- Given AFib, after recovers from IE and anticipated MV surgery, plan to initiate Eliquis
- [id number] score is 5 for age, female, HTN, CVA
Volume overload:
- Likely due to IV fluids and several IV medications
- received IV lasix this admit
- monitor volume post-op
Hypokalemia, from diuretic
- resolved with replacements, monitor
Pancytopenia
- Per oncology, etiology thought to be more likely ongoing infection then chemotherapy though both could be contributing
- Has not been thrombocytopenic in the past with chemo
Breast Ca, on chemo
HTN
Hyponatremia, improving
Hx of PSVT (mechanism uncertain)
Physical Exam
Vital Signs/Labs
Vital Signs
Temp Pulse Resp BP Pulse Ox
96.0 F L 70 0 119/78 100
08/10/24 16:05 08/10/24 16:10 08/10/24 16:10 08/10/24 10:00 08/10/24 16:40
08/09/24 08/10/24 08/11/24
06:59 06:59 06:59
Actual Weight 86.4 kg
08/10/24 15:50
PT 13.1 Sec (11.4-14.6) 08/10/24 15:50
INR 0.95 08/10/24 15:50
APTT 31.2 Sec (23.4-35.0) 08/10/24 15:50
Magnesium 2.4 mg/dl (1.6-2.3) H 08/10/24 15:50
Triglycerides 181 mg/dl (10-149) H 08/08/24 05:31
LDL Cholesterol, Calc 49 mg/dl 08/08/24 05:31
VLDL Cholesterol, Calc 36 mg/dl (0-30) H 08/08/24 05:31
HDL Cholesterol 22 mg/dl 08/08/24 05:31
Physical Exam
Constitutional: No acute distress
EENT: Anicteric
Cardiovascular: Rhythm & rate is regular
Respiratory: Other (intubated and ventilated)
Neuro/Psych: Other (sedated)
Other: Skin (midsternal incision dressing CDI)
Data Reviewed
-
Date of Service: August 10, 2024
EKG: Tracing Personally Visualized and interpreted (NST, pacing spikes, ST abnormalities)
Labs: Labs Reviewed by me
[2024-08-10 16:58] LABS: Glucose - Point of Care 181 mg/dl (70-99)
[2024-08-10 18:04] LABS: Glucose - Point of Care 152 mg/dl (70-99)
[2024-08-10] MEDS: REGLAN 10 MG IV (18:12)
[2024-08-10 19:08] LABS: Glucose - Point of Care 101 mg/dl (70-99)
[2024-08-10 19:47] LABS: B.E. -3.8 mmol/L; HCO3 19.7 mmol/L (21-28); Ionized Calcium 1.18 mMOL/L (1.15-1.33); O2 Saturation % 99.2 % (94-98); PCO2 29 mmHg (32-35); PO2 150 mmHg (83-108); Potassium 3.7 mMOL/L (3.5-5.1); pH 7.44 (7.35-7.45)
[2024-08-10 19:49] LABS: Mixed Venous O2 Saturation 40.2 %
[2024-08-10 19:58] LABS: Hematocrit 22.6 % (37.0-47.0); Hemoglobin 7.9 g/dL (12.0-16.0); Platelet Count 116 10^3/uL (130-400)
--- NOTE | 2024-08-10 20:15 | PTCARENOTE ---
Assumed care of pt from dayshimadyson RN. Walking rounds completed. Pt intubated and lightly sedated. Precedex infusing as ordered. Pt following simple commands and GO. Opening eyes to voice. Pt is SR on the tele monitor. HR 60s. Temporary A/V wires set
to backup rate of 45. CI:1.34 (PA aware), CVP~12. PAPs 20s/teens. BP 90s/50s. Levo/vaso infusing per protocol to keep SBP's 90-110. Palpable pulses throughout. B/L hand and LE edema present. ETT #8, 25 cm @ right lip. FiO2 40%. POX 100%. See
worklist for full vent settings. Lung sounds audible anteriorly - diminished/slightly coarse. Mediastinal CTx2 to -20 suction, no airleak noted at this time, and output WNL. Abdomen round. Hypoactive BS. Adair catheter in place and draining yellow
urine. Rectal trumpet in place and draining greenish brown liquidly stool. OG tube in place, set to low intermittent suction, and draining brown liquid. Sternal incision intact w/ RAYMOND dressing in place. Old scant drainage noted and marked. Bear
hugger turned off - goal temp reached. Right IJ cordis w/ SWAN and left radial a-line intact. All lines leveled, zeroed, and flushed. Dobutamine infusing as ordered. Glycemic protocol followed. Ordered labs drawn and sent. See worklist for full
nursing assessment and interventions.
[2024-08-10] MEDS: SENOKOT-S PO (20:18)
[2024-08-10] MEDS: SODIUM BICARBONATE 50 MEQ IV (20:33)
[2024-08-10] MEDS: FIRVANQ 125 MG PO (20:47)
[2024-08-10 21:07] LABS: Glucose - Point of Care 106 mg/dl (70-99)
--- NOTE | 2024-08-10 21:24 | PTCARENOTE ---
1 unit PRBC's infused w/o issue. 2g calcium gluconate and 1 amp bicarb administered as ordered by CTPA. VSS at this time. CI improved to 1.66. Family updated at the bedside.
[2024-08-10 21:26] LABS: B.E. -0.6 mmol/L; HCO3 22.8 mmol/L (21-28); O2 Saturation % 99.5 % (94-98); PCO2 32 mmHg (32-35); PO2 134 mmHg (83-108); Potassium 3.3 mMOL/L (3.5-5.1); pH 7.46 (7.35-7.45)
[2024-08-10] MEDS: LOW STRENGTH ASPIRIN 81 MG PO (21:46)
[2024-08-10] MEDS: PITRESSIN 100 IV (22:59)
[2024-08-10 23:01] LABS: B.E. -0.6 mmol/L; HCO3 22.6 mmol/L (21-28); Ionized Calcium 1.22 mMOL/L (1.15-1.33); O2 Saturation % 99.3 % (94-98); PCO2 31 mmHg (32-35); PO2 111 mmHg (83-108); pH 7.47 (7.35-7.45)
[2024-08-10 23:02] LABS: Hematocrit 26.8 % (37.0-47.0); Hemoglobin 9.3 g/dL (12.0-16.0)
[2024-08-10 23:04] LABS: Glucose - Point of Care 88 mg/dl (70-99)
--- NOTE | 2024-08-10 23:30 | RESPNOTE ---
PT was placed on a CPAP wean with PS at 2215 and volumes/vitals were acceptable, as was the ABG. OG tube was pulled first, leaving the ETT. A new NG tube was placed with the ETT in place to protect the airway. Once the NG tube was in the right
place and secured, ETT was pulled @ 2330 with RT/PA/RN at the bedside and placed on a 6 L nasal cannula. PT completed 5 seperate I/S attempts post-extubation with the best result being 1,500 mls. PT was suctioned before ETT was pulled and after
and voiced her name following extubation, vent was pulled and cleaned. Will continue to monitor resp status.
--- NOTE | 2024-08-10 23:41 | PTCARENOTE ---
Pt placed on CPAP by RT ~2215. Pt tolerated and repeat blood gas sent ~2250. CTPA and RT at bedside. OG tube pulled. NG tube placed at 65 cm. Pt then extubated to 6 L NC. POX 96%. Pt oriented to person, place, and time. IS completed. Chest xray
ordered to confirm placement of NG tube. Pt denies pain at this time.
[2024-08-11] VITALS (28 sets, daily range): BP systolic 89–134; BP diastolic 55–90; PULSE 81; BMI 31.5
[2024-08-11] MEDS: REGLAN 10 MG IV ×2 (00:20→06:12)
--- NOTE | 2024-08-11 00:44 | PTCARENOTE ---
Pt reassessed. Pt is SR on the tele monitor. HR high 60-70s. Temporary A/V wires unchanged. BPs 90-100s/60s. Levo/vaso infusing as ordered. CI: 1.63. CO: 3.16. SVR ~1500. CVP ~14. PAPs 30s/teens. Pt on 6 L NC. POX 97%. Mediastinal CTx2 assessment
unchanged. Adair catheter intact and draining yellow urine. Right nare NG tube intact. Rectal trumpet intact and draining loose brown stool. All surgical sites stable. Dobutamine infusing. Glycemic protocol followed. Pt denies pain at this time.
Call lopez within reach.
[2024-08-11 01:04] LABS: Glucose - Point of Care 116 mg/dl (70-99)
--- NOTE | 2024-08-11 02:51 | W.PN.CT ---
Today's Communication / Plan
-
-pod #1
-extubated uneventfully at 23:30. A&O x3
-pt pulled out NG tube.
-CI 2.60, CO 5.03, SVR 1113, mvO2 pending. Drips: Dobut 3.5, Vaso 0.01, Insulin. Levo is off
-CT outputs: 2 meds 120/410 in 12/24 hrs
-slowly wean Dobut
-current meds (ASA, Amio, Protonix, iv and po Vancomycin, Daptomycin). Holding BB and Cardizem while on Dobutamine
-Persistent positive MSSA blood cultures- antibiotics per infectious disease- on Daptomycin and Vancomycin.
-last positive blood culture 08/09/2024. Repeat cultures pending
-diarrhea, has rectal trumpet. Stool C. diff Ag+, toxin neg = colonization
-continue prophylactic Vancomycin 125mg po daily while on systemic abx per ID
-encourage IS, OOB
Assessment / Plan
-
- Mitral valve endocarditis- s/p Radical mitral valve repair [debridement of annulus, patch repair, annuloplasty with 30 mm band]; Open left sided maze procedure [cryoablation]; Left atrial appendage exclusion [35 mm clip] by Dr. Brian on 08/10/24,
pod #1
- Intraop DONNELL: LVEF was pre and post 60% with no new regional wall motion abnormalities. RV was normal size and function. After coming off cardiopulmonary bypass there was no residual leak and the mean gradient across the valve was 2. The left
atrial appendage was also opened up prior to ligation to ensure that there was no vegetations within it.
- Mitral valve endocarditis with embolic phenomenon and sepsis, moderate mitral valve insufficiency
- Multiple CVAs
- Acute metabolic encephalopathy
- Active breast cancer, on chemotherapy
- Chemotherapy induced diarrhea
- Multiple electrolyte imbalances
- Paroxysmal atrial fibrillation
- Immunocompromise
- Acute hypoxic respiratory failure
- Stage 1 obesity, BMI 31
- Acute postop blood loss anemia- s/p 4 pRBCs total (1 preop, 2 intraop and 1 postop)
- Acute postop coagulopathy/thrombocytopenia - s/p Factor 7, 3 platelets and 2 FFPs
- Acute postop atelectasis
- Acute postop hypovolemia with subsequent hypervolemia
Discussed patient care with: Nursing and Care Team
Subjective
-
Date of Service: August 11, 2024
Objective Data
-
PT 13.1 Sec (11.4-14.6) 08/10/24 15:50
INR 0.95 08/10/24 15:50
APTT 31.2 Sec (23.4-35.0) 08/10/24 15:50
Vital Signs
Vital Signs
Temp Pulse Resp BP Pulse Ox
97.9 F 76 16 104/62 93
08/11/24 02:00 08/11/24 02:16 08/11/24 02:16 08/11/24 02:00 08/11/24 02:16
CT Intake/Output/Weight
08/10/24 08/10/24 08/11/24
06:59 18:59 06:59
Intake Total 1045 / 1335 1164.4 / 2083.8 919.4 / 2083.8
Output Total 1620 / 3400 1805 / 2880 1075 / 2880
Balance -575 / -2065 -640.6 / -796.2 -155.6 / -796.2
SaO2: 93
Physical Exam
-
General: Awake and AOx3
Cardiovascular: Regular rate & rhythm, No Murmurs and No Rub
Respiratory: Decreased Breath Sounds
Sternum: Stable
Incision: Clean, Dry and Intact
Extremities: No Edema (1+ DPs b/l)
Abdomen: soft, nontender, nondistended, + bowel sounds
Data Reviewed
-
Lab Results: Results Reviewed
Medications: Active Meds Reviewed
Chest X-Ray: Report Reviewed and Image Reviewed
ECG: Report Reviewed and Image Reviewed
[2024-08-11 03:12] LABS: Glucose - Point of Care 86 mg/dl (70-99)
[2024-08-11 04:20] LABS: B.E. -0.7 mmol/L; HCO3 22.3 mmol/L (21-28); Ionized Calcium 1.21 mMOL/L (1.15-1.33); O2 Saturation % 98.4 % (94-98); PCO2 30 mmHg (32-35); PO2 78 mmHg (83-108); Potassium 3.2 mMOL/L (3.5-5.1); pH 7.48 (7.35-7.45)
[2024-08-11 04:21] LABS: O2 Therapy 4L
[2024-08-11 04:24] LABS: Hematocrit 26.8 % (37.0-47.0); Hemoglobin 9.4 g/dL (12.0-16.0); Mean Corp Hgb Conc. 35.1 g/dL (33.0-37.0); Mean Corpuscular Hgb 31.8 pg (27.0-31.0); Mean Corpuscular Volume 90.5 fL (81.0-99.0); Mean Platelet Volume 11.3 fL (7.4-10.4); Platelet Count 118 10^3/uL (130-400); Red Blood Cell Count 2.96 10^6/uL (4.20-5.40); Red Cell Dist. Width 18.2 % (11.5-14.5); White Blood Cell Count 8.8 10^3/uL (4.8-10.8)
[2024-08-11 04:47] LABS: Blood Urea Nitrogen 20 mg/dl (7-17); Calcium 8.1 mg/dl (8.4-10.2); Carbon Dioxide 22 mmol/L (22-30); Chloride 118 mmol/L (98-107); Estimated Creatinine Clearance 55 ml/min; Glucose 71 mg/dl (70-99); Potassium 3.2 mmol/L (3.5-5.1); Sodium 144 mmol/L (135-145); eGFR 55.76
[2024-08-11] MEDS: KCL 50 IV ×2 (04:48→06:11)
--- NOTE | 2024-08-11 04:53 | PTCARENOTE ---
Pt reassessed. Pt is AAOx3. SR on the tele monitor. HR 80s. BP stable. 100-110s/50s. Levo/vaso titrated off. CI: 2.6. CO: 2.05. SVR: 1113. CVP ~15. PAPs: 30s/teens. Pt on 6 L NC. POX 95%. Mediastinal CTx2 assessment unchanged. Adair catheter intact
and draining yellow urine. Rectal trumpet in place and draining appropriately. NG tube dc'd by patient. PA aware - NG tube then replaced by RN. DONELL and a-line maintained - all lines leveled/zeroed/flushed. All surgical sites stable. Pt tolerating
ice chips. Labs drawn and sent. Call lopez within reach.
[2024-08-11 05:13] LABS: Glucose - Point of Care 88 mg/dl (70-99)
[2024-08-11] MEDS: TYLENOL 1000 MG PO ×3 (06:13→22:22)
[2024-08-11] MEDS: SYNTHROID 50 MCG PO (06:21)
[2024-08-11] MEDS: VANCOCIN 275 MG IV ×2 (06:29→18:23)
[2024-08-11 07:21] LABS: Glucose - Point of Care 101 mg/dl (70-99)
--- NOTE | 2024-08-11 07:41 | PHA.VAN.FU ---
Vancomycin Assessment / Plan
- Assessment
Renal Function: Stable (slow upward trend (0.9 2 days ago))
WBC's are: Trending Up (8.8 from 4.2 in the setting of mitral valve repair yesterday)
In the past 24 hrs, patient has been: Hypothermic (Tmin 95.6F)
Concomitant Antimicrobials: Daptomycin
- Dosing Plan
Continue: Vancomycin 1250mg IV Q12H
- Monitoring Plan
No level(s) ordered at this time: Consider level when at steady state with current regimen
- Follow Up
Pharmacy will continue to follow.
Vancomycin Follow UP
- -
Patient Age: 64
Patient Sex: Female
Vancomycin Day #: 4
Indication: Endocarditis
Requesting Provider: Dr Roy
Pertinent Antimicrobial Allergies:
Cefprozil - hives
cephalosporins - unknown
Ciprofloxacin - unknown
Penicillins - hives
Trimethoprim / sulfamethoxazole (Bactrim) - hives
Height / Weight:
Height 5 ft 5 in
Actual Weight 85.8 kg
Pertinent Past Medical History: Breast cancer (port)
- Vital Signs / Lab Results
Temp Pulse Resp BP Pulse Ox
98.2 F 87 13 113/65 95
08/11/24 07:00 08/11/24 07:06 08/11/24 07:06 08/11/24 07:00 08/11/24 07:06
Lab Results - Hematology
08/08/24 08/09/24 08/10/24
05:31 04:41 04:52
WBC 10.7 4.2 L
Band Neutrophils 0
08/11/24
04:05
WBC 8.8
Band Neutrophils
Lab Results - Chemistry
08/09/24 08/09/24 08/10/24
04:34 14:46 04:40
BUN 16 15 15
Creatinine 1.0 0.9 0.9
Estimated Creat Clear 60 67 67
Albumin 2.7 L
08/10/24 08/11/24
15:50 04:05
BUN 16 20 H
Creatinine 1.0 1.1 H
Estimated Creat Clear 61 55
Albumin
Lab Results - Urine
08/10/24
10:28
Urine Nitrite (Reflex) Cancelled
Leukocyte Esterase Rfl Cancelled
Microbiology Results
08/10/24 04:52 Blood Culture - Preliminary
Blood/Venous No Growth in 24 hours- Final report to follow
08/10/24 13:45 Gram Stain - Preliminary
Tissue
08/09/24 04:34 Blood Culture - Preliminary
Blood/Venous Positive culture in progress
Gram Stain - Preliminary
08/07/24 09:52 Blood Culture - Preliminary
Blood/Venous S aureus-Methicillin Sensitive
Gram Stain - Preliminary
08/08/24 05:31 Blood Culture - Preliminary
Blood/Venous Positive culture in progress
Gram Stain - Preliminary
Therapeutic Drug Monitoring
Vancomycin Peak Cancelled 08/10/24 21:30
Vancomycin Trough 14.9 ug/ml (5-20) 08/05/24 05:14
--- NOTE | 2024-08-11 07:57 | W.PN.ANS.POP ---
Anesthesia Post Operative
- Anesthesia Post Op Note
Vital Signs Stable-See Nursing Note: Yes
Airway Patent: Yes
Adequate Pain Control: Yes
Change in Mental Status: No
Current Postoperative Nausea & Vomiting: No
Anesthesia Complications: No
General Anesthetic Recall: No
Unplanned Admission: No
Post Op Hydration Adequate: Yes
--- NOTE | 2024-08-11 08:00 | PTCARENOTE ---
Assumed care of patient. Walking rounds completed with previous RN. Pt assessed while she was lying in bed. Pt alert and oriented x4. GO with equal strength. Slight left sided facial droop. Partial hemianopia to the left side. NIH 2. Follows
commands. Forgetful at times, more with short term memory. Denies pain, shortness of breath, and nausea. NSR on tele with rates in the 80s. BP 119/70. CI 2.74 PA pressures 34/12. CVP 7-10. Bilateral radial and DP pulses palpable. +3 lower extremity
edema, +2 hand edema. Epicardial AV wires tied to temp pacer box. Dobutamine at 2mcg/kg/min as per Dr. Brian. POX 96% on 6L NC. Lungs diminished, coarse throughout. Mediastinal chest tubes draining serosanguinous fluid. No air leaks, tidaling,
crepitus. IS encouraged-1000mL achieved. Abdomen soft, round, nontender. Hypoactive BS. NGT to right nare to 60cm draining jeff/green fluid. Rectal trumpet in place draining jeff/green stool. Tolerating ice chips. Adair draining pamela urine, CT METAPHYSICIST
notified of decreased output. Sternal incision with RAYMOND dressing in place, no additional drainage from outline, green flashing light. Chest tube dressing changed, mod. amount of sanguinous drainage on dressing. Right IJ cordis with swan floated to
40cm. Left radial sera intact. All lines flushed, leveled, zeroed. Left hand 20 infusing insulin gtt per critical care glycemic protocol. Left hand 22g PIV intact. See MAR for medication administration. See worklist for complete nursing assessment.
Plan of care reviewed and limits set on ice chip amount as per Dr. Brian.
[2024-08-11] MEDS: LIDOCAINE 4% PATCH 1 PATCH TOPICAL (08:33)
[2024-08-11] MEDS: LR 1000 IV (08:34)
[2024-08-11] MEDS: NSS (PRESERVATIVE FREE) 10 ML IV (08:34)
[2024-08-11] MEDS: BACTROBAN 2% OINTMENT 1 APPLIC NASAL ×2 (08:34→20:07)
[2024-08-11] MEDS: PROTONIX IV 40 MG IV (08:34)
[2024-08-11] MEDS: CLARITIN PO (08:38)
[2024-08-11] MEDS: SENOKOT-S PO ×2 (08:39→20:06)
--- NOTE | 2024-08-11 08:39 | W.PN.CD ---
Today's Communication / Plan
-
-Extubated last night; now only on low-dose dobutamine.
-Remains in sinus rhythm on telemetry.
-Continue routine postsurgical care as directed by CT Surgery.
Impression / Plan
-
Card: Espinoza (for palps, AT/PSVT)
Mitral valve endocarditis, mitral regurgitation:
- Status-post radical mitral valve repair [debridement of annulus, patch repair, annuloplasty with 30 mm band], open left sided maze procedure [cryoablation], left atrial appendage exclusion [35 mm clip], Dr. Brian 08/10/24
-post-op, was on Levophed, dobutamine, and vasopressin, all of which require intensive monitoring
-Extubated last night; now only on low-dose dobutamine.
-Remains in sinus rhythm on telemetry.
-Continue routine postsurgical care as directed by CT Surgery.
Sepsis due to MSSA bacteremia:
-Suspected source is Chemo port with cath tip growing Staph aureus. Blood cultures remain positive as recently as 08/07/2024
-DONNELL 08/08/2024: LVEF 60-65%, mobile vegetation attached to the base of P1/P2 segment of MV (0.9 x 0.7 x 0.7 cm), mild MR
-ID following; continue ABX management per ID.
Concern for CVA
- MRI 08/08/2024: 'Several tiny foci of nonhemorrhagic acute/subacute infarcts within the bilateral centrum semiovale/periventricular regions and right cerebellum'.
- L eye vision loss on 08/07 PM. Stroke alert called
- Head/neck CTA and brain CT unremarkable on 08/07
- Neuro involved: see their note for details
PAF, RVR:
- AFib is NEW this admit. Likely due to sepsis
- Anticipate at least several months of Amio- on dilt ER 240 a day and amiodarone 400 mg twice daily pre-op
- she is s/p MAZE/CLAUDIA clip as above
- Given AFib, after recovers from IE and MV surgery, plan to initiate Eliquis
- [id number] score is 5 for age, female, HTN, CVA
Hypokalemia:
- Replete as needed.
Pancytopenia
- Per oncology, etiology thought to be more likely ongoing infection then chemotherapy though both could be contributing
- Has not been thrombocytopenic in the past with chemo
Breast Ca, on chemo
HTN
Hx of PSVT (mechanism uncertain)
Physical Exam
Vital Signs/Labs
Vital Signs
Temp Pulse Resp BP Pulse Ox
98.2 F 83 13 113/65 96
08/11/24 07:00 08/11/24 07:45 08/11/24 07:45 08/11/24 07:00 08/11/24 07:45
08/10/24 08/11/24 08/12/24
06:59 06:59 06:59
Actual Weight 86.4 kg 85.8 kg
08/11/24 04:05
08/11/24 04:05
PT 13.1 Sec (11.4-14.6) 08/10/24 15:50
INR 0.95 08/10/24 15:50
APTT 31.2 Sec (23.4-35.0) 08/10/24 15:50
Magnesium 2.0 mg/dl (1.6-2.3) 08/11/24 04:05
Triglycerides 181 mg/dl (10-149) H 08/08/24 05:31
LDL Cholesterol, Calc 49 mg/dl 08/08/24 05:31
VLDL Cholesterol, Calc 36 mg/dl (0-30) H 08/08/24 05:31
HDL Cholesterol 22 mg/dl 08/08/24 05:31
Physical Exam
Constitutional: No acute distress and Comfortable
EENT: Anicteric
Cardiovascular: Rhythm & rate is regular, Pedal edema is absent, Systolic murmur absent and S1S2 is normal
Respiratory: Respiratory effort normal and Lungs clear to auscul.
GI: Soft
Neuro/Psych: AO x 3
Other: Skin (Warm, dry)
Data Reviewed
-
Date of Service: August 11, 2024
EKG: Tracing Personally Visualized and interpreted (Telemetry: Sinus rhythm)
Medical Tests (PFT, Pathology etc): Discussed with Nurse
Labs: Labs Reviewed by me
Critical Care Time (in minutes): 37
[2024-08-11] MEDS: LOW STRENGTH ASPIRIN 81 MG PO (08:50)
[2024-08-11] MEDS: MAGNESIUM OXIDE 500 MG PO ×2 (08:51→20:06)
[2024-08-11] MEDS: PACERONE 200 MG PO ×3 (08:51→22:22)
[2024-08-11] MEDS: NEURONTIN 100 MG PO ×3 (08:51→22:22)
[2024-08-11] MEDS: FIRVANQ 125 MG PO ×2 (08:53→20:06)
[2024-08-11 09:04] LABS: Glucose - Point of Care 95 mg/dl (70-99)
[2024-08-11] MEDS: NSS IV (10:02)
--- NOTE | 2024-08-11 10:16 | W.PN.ID1 ---
Date of Service
Date of Service: August 11, 2024
Today's Communication
Continue dapto, IV vanco.
Assessment / Plan
# Sustained complicated Staphylococcus aureus (MSSA) bacteremia
# Catheter associated bloodstream infection from port, present on admission.
. 08/04 s/p port removed, cath tip MSSA
# [place] MV infective endocarditis
.08/08 DONNELL 0.9cm mobile vege attached to MV
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
# Acute urinary retention, peña placed 08/09/24
# Multiple antibiotic allergies including penicillin, cephalosporins, sulfa, cipro
# New onset Afib, now in sinus
# R Breast cancer on adjuvant chemotherapy
# Neutropenia (resolved) and Pancytopenia due to chemotherapy
- 08/10 Blood cx neg x 24h.
- 08/10 s/p open radical mitral valve repair debridement of annulus, patch repair, annuloplasty with 30 mm band
- 08/10 MV tissue cx: MSSA
- Continue to repeat blood cultures daily until at least 2 sets neg.
- Continue high dose daptomycin 1g IV q24h (d5) and IV Vancomycin (crosses blood-brain barrier).
- Follow weekly CK while on daptomycin.
- Will eventually de-escalate abx's once patient is stabilized.
- Stool C. diff Ag+, toxin neg = colonization
- Continue prophylactic Vancomycin 125mg po daily while on systemic abx.
- Diarrhea more formed per nurse.
����������������������������������������������������������
Chief Complaint
-: Clinical Sepsis, Bacteremia and Other (endocarditis)
Subjective / Review of Systems
No nausea.
Vital Signs / Physical Exam
Vital Signs
Vital Signs
Temp Pulse Resp BP Pulse Ox
98.7 F 87 13 101/60 96
08/11/24 10:00 08/11/24 10:00 08/11/24 10:00 08/11/24 10:00 08/11/24 10:00
Physical Exam
Constitutional: Comfortable
Cardiovascular: Regular Rate and S1/S2
Pulmonary: Clear (anteriorly)
Gastrointestinal: Soft, Non Tender, Non Distended and Normal Bowel Sounds
Genito-Urinary: Negative CVA Tenderness
Extremities: Edema
Neurological: AO x 3
Objective Data
Lab Data
Lab Results
08/11/24 04:05
08/11/24 04:05
PT 13.1 Sec (11.4-14.6) 08/10/24 15:50
INR 0.95 08/10/24 15:50
APTT 31.2 Sec (23.4-35.0) 08/10/24 15:50
Estimated Creat Clear 55 ml/min 08/11/24 04:05
Lactic Acid Cancelled 08/03/24 12:03
Total Bilirubin 0.9 mg/dl (0.2-1.3) 08/09/24 04:34
AST 42 U/L (14-36) H 08/09/24 04:34
ALT 38 U/L (0-35) H 08/09/24 04:34
Alkaline Phosphatase 118 U/L (38-126) 08/09/24 04:34
Most recent labs reviewed.
Micro Results:
08/04/24 04:17 Blood Culture - Final
Blood/Venous S aureus-Methicillin Sensitive
Gram Stain - Final
08/05/24 09:21 Blood Culture - Final
Blood/Venous S aureus-Methicillin Sensitive
Gram Stain - Final
08/04/24 04:17 Blood Culture - Final
Blood/Venous S aureus-Methicillin Sensitive
Gram Stain - Final
08/10/24 13:45 Tissue Culture - Preliminary
Tissue Staphylococcus aureus
Gram Stain - Preliminary
08/08/24 05:31 Blood Culture - Preliminary
Blood/Venous S aureus-Methicillin Sensitive
Gram Stain - Preliminary
08/10/24 04:52 Blood Culture - Preliminary
Blood/Venous No Growth in 24 hours- Final report to follow
08/11/24 04:12 Blood Culture - Pending
Blood/Venous
08/09/24 04:34 Blood Culture - Preliminary
Blood/Venous Positive culture in progress
Gram Stain - Preliminary
08/07/24 09:52 Blood Culture - Preliminary
Blood/Venous S aureus-Methicillin Sensitive
Gram Stain - Preliminary
08/06/24 03:49 Blood Culture - Preliminary
Blood/Venous S aureus-Methicillin Sensitive
Gram Stain - Preliminary
08/06/24 03:30 Blood Culture - Preliminary
Blood/Venous S aureus-Methicillin Sensitive
Gram Stain - Preliminary
08/03/24 22:57 Salmonella/Shigella Culture - Final
Feces/Stool No Salmonella, Shigella, Aeromonas or Plesiomonas species
isolated.
Campylobacter Culture - Final
No Campylobacter species isolated.
Shiga Toxin Test - Final
No E. coli Shiga Toxin 1 or 2 detected.
Stool Leukocytes - Final
08/05/24 09:33 Blood Culture - Preliminary
Blood/Venous S aureus-Methicillin Sensitive
Gram Stain - Preliminary
08/04/24 08:18 Catheter Tip Culture - Final
Catheter Tip S aureus-Methicillin Sensitive
08/02/24 20:31 Blood Culture - Final
Blood/Venous S aureus-Methicillin Sensitive
Gram Stain - Final
08/03/24 21:45 Urine Culture - Final
Urine S aureus-Methicillin Sensitive
08/02/24 20:28 Urine Culture - Final
Urine S aureus-Methicillin Sensitive
08/02/24 20:27 Blood Culture - Final
Blood/Venous S aureus-Methicillin Sensitive
Gram Stain - Final
08/02/24 20:51 Blood Culture - Final
Blood/Venous S aureus-Methicillin Sensitive
Gram Stain - Final
08/03/24 22:57 C. difficile GDH Antigen & Toxins - Final
Feces/Stool C. difficile antigen positive, toxin negative.
Clostridium difficile present, but toxin not detected.
Patient may be a carrier, colonized with nontoxinogenic
strain or the level of toxin in sample is below detection
limits. This information should be used in conjunction with
the patient's clinical history.
- Final
Negative for Norovirus GI and GII.
08/02/24 20:39 Influenza Types A & B (DAHLIA) - Final
Nasal Swab Negative for Influenza A & B, NAAT
Negative results must be combined with clinical observations
and patient history.
Nucleic Acid Amplification test (NAAT)performed on the
[employer] platform.
08/08/24 Brain MRI: Several tiny foci of nonhemorrhagic acute/subacute infarcts within the bilateral centrum semiovale/periventricular regions and right cerebellum.
08/02/24 CXR: Probable infectious/inflammatory pneumonitis.
[2024-08-11 11:06] LABS: Glucose - Point of Care 90 mg/dl (70-99)
--- NOTE | 2024-08-11 11:45 | W.PN.ONC ---
Today's Communication / Plan
-
Will check DIC panel
Active type and screen
CBC daily
Monitor closely for hemolysis
Impression
Impression
Medullary breast cancer, stage T2 N0 M0, HER+, HER2 3+, on adjuvant TCHP, intent of care curative
Port infection complicated by bacteremia, s/p port removal 08/04
MV endocarditis
Hypothyroidism
New atrial fibrillation
New left eye visual deficit likely septic emboli
pancytopenia secondary to antineoplastic therapy+/-infection -neutropenia/leukopenia resolved -thrombocytopenia improved 118,000 today - Hgb stable 9.4 g/dL.
Plan
Plan
Last two cycles of chemo, if given, could be administered via peripheral IV. Taxotere can be uncomfortable by peripheral IV but could give Abraxane or taxol instead.
Herceptin and Perjeta are both Sub-Q and do not require port.
Would not replace port.
Follow blood cultures- still remain positive as of 08/10
Anticoagulation for atrial fibrillation on hold- only receiving dobutamine- remains in SR
Neuro following -MRI showed several tiny foci of nonhemorrhagic acute/subacute infarcts within the bilateral centrum semiovale/periventricular regions and right cerebellum-receiving aspirin
Status post Left atrial appendage exclusion and MV repair by cardiothoracic surgery on 08/10 and chest tube insertion
Acute postop blood loss anemia- s/p 4 pRBCs total (1 preop, 2 intraop and 1 postop)
Acute postop coagulopathy/thrombocytopenia - s/p Factor 7, 3 platelets and 2 FFPs
2 episodes of loose stool today- on prophylactic oral Vanco
Platelet count (s/p 3 units plt) and Hgb (s/p 5 units pRBC) remain stable as of today.
Will check DIC panel
Active type and screen
Will cont to follow
Subjective/Objective
Subjective/Objective
Vital Signs:
Vital Signs
Temp Pulse Resp BP Pulse Ox
98.8 F 83 14 112/57 96
08/11/24 11:00 08/11/24 11:00 08/11/24 11:00 08/11/24 11:00 08/11/24 11:00
Lab Results:
Laboratory Data
WBC 8.8 10^3/uL (4.8-10.8) 08/11/24 04:05
Hgb 9.4 g/dL (12.0-16.0) L 08/11/24 04:05
Plt Count 118 10^3/uL (130-400) L 08/11/24 04:05
PT 13.1 Sec (11.4-14.6) 08/10/24 15:50
INR 0.95 08/10/24 15:50
APTT 31.2 Sec (23.4-35.0) 08/10/24 15:50
eGFR 55.76 08/11/24 04:05
[2024-08-11 12:00] LABS: Glucose - Point of Care 90 mg/dl (70-99)
--- NOTE | 2024-08-11 12:00 | PTCARENOTE ---
Pt reassessed. No change in neuro status. Oriented x4. GO with equal strength strength. Visual deficit unchanged. NSR with rates in the 80s. BP 112/57. POX 95% on 4L NC. Surgical sites stable. RAYMOND dressing with no additional drainage, flashing
green. Mediastinal CT drainage WNL. Adair draining pamela urine, CT CHIEF SUPPLY CHAIN OFFICER notified of output. NGT draining green/jeff. Insulin infusing per glycemic protocol. All lines remain intact. Dobutamine turned off per CT CHIEF SUPPLY CHAIN OFFICER. Pt's family at bedside.
[2024-08-11] MEDS: CUBICIN 20 MG IV (12:03)
[2024-08-11 13:07] LABS: Glucose - Point of Care 73 mg/dl (70-99)
[2024-08-11 13:44] LABS: LDH 470 U/L (120-246)
--- NOTE | 2024-08-11 13:46 | W.PN.INTV ---
Today's Communication / Plan
Recommendations
Continue antibiotics
Continue postoperative care
Wean off oxygen
Diurese as able
Follow CBC
Follow chest tube output
Wean off dobutamine
No additional recommendations, sign off
Assessment
-
64-year-old woman with past medical history noted. Admitted initially with change in mental status and sepsis. Found to have MSSA bacteremia. During the hospital stay developed atrial fibrillation, cardioembolic strokes possibly from infective
endocarditis. Mitral valve vegetation. Due to persistent cardioembolic events and positive blood cultures underwent mitral valve debridement and repair on 08/10/2024.
Critical care team consulted for postoperative management
s/p Radical mitral valve repair [debridement of annulus, patch repair, annuloplasty with 30 mm band]; Open left sided maze procedure [cryoablation]; Left atrial appendage exclusion [35 mm clip] by Dr. Brian on 08/10/24, pod #1
Methicillin sensitive Staph aureus bacteremia/endocarditis-persistent embolic events despite proper antibiotics.
08/08 DONNELL 0.9cm mobile vege attached to MV
Cardioembolic CVA during this admission-left vision loss
Right breast cancer on adjuvant chemotherapy-immunosuppressed.
Port in place-present on admission-status post removal 08/04/2024. Catheter tip positive for Staph aureus. Neutropenic/pancytopenic due to chemotherapy
Conditions present prior admission:
Right breast cancer status post lumpectomy with sentinel node dissection-on adjuvant chemotherapy
Hypertension
Hyperlipidemia
Hypothyroidism
Valvular disease-mitral regurg
Atrial fibrillation
History of laparoscopic hysterectomy
Cholecystectomy
Left parotid tumor resection
-
Assessment plan:
Postoperative day 1-
Extubated
On low rate supplemental oxygen-wean off as able.
Encourage incentive spirometry
Continue analgesia
Out of bed when able.
Infective endocarditis: Related to her port that has been discontinued.
Follow fever curve and leukocytosis.
Persistent positive MSSA blood cultures
MSSA positive from cardiac tissue
Appropriate antibiotics per infectious disease-daptomycin and vancomycin.
Last positive blood culture 08/09/2024.
Follow repeat blood cultures
Anemia noted-no evidence of acute bleeding
Thrombocytopenia noted
Follow H&H serially
Hemodynamics -improved-dobutamine to be weaned off.
Will follow hemodynamics
Continue to wean down as able
Follow renal function
Adequate urinary output
Atrial fibrillation: Rate controlled
Eventual to start anticoagulation once cleared by neurology
antiplatelet
Diuresis as able
Cardiology following patient.
Cardioembolic CVA:
Likely due to infective endocarditis.
Neurology correspondence reviewed.
Continue to follow neurological status.
Eventual anticoagulation for atrial fibrillation
Chest tube with no excessive drainage-no air leak.
Chest x-ray reviewed: There has been progression of left lower lobe partial atelectasis or pneumonia. This is accompanied by a small left pleural effusion.
Endotracheal tube has been removed. Remaining support apparatus as detailed above.
Chronic diarrhea-benign abdominal exam.
C. difficile colonization
NG tube in place.
Fecal management
Anemia/thrombocytopenia
Oncology/hematology following.
Currently no coagulopathy.
Advance diet
Head of the bed elevation
Glycemic control per protocol
DVT prophylaxis when safe from the surgical perspective.
Prognosis guarded.
No additional critical care recommendations.
Sign off
Subjective Dataa
Subjective Data
Date of Service:
Date of Service: August 11, 2024
Chief Complaint: Leather Staker Follow Up (Status post mitral valve repair-endocarditis)
Subjective:
Extubated, no acute complaints
Remains on low-dose dobutamine
Review of Systems
General: Fever (n)
Cardiopulmonary: Dyspnea (None at rest)
GI: Abdominal Pain (n)
Neuro: Headache (n)
Objective Data
Data Reviewed
Vital Signs / I&O / Oxygen:
Vital Signs
Temp Pulse Resp BP Pulse Ox
98.9 F 81 16 111/58 95
08/11/24 13:00 08/11/24 13:00 08/11/24 13:00 08/11/24 13:00 08/11/24 13:00
Intake and Output
08/10/24 08/11/24 08/12/24
06:59 06:59 06:59
Intake Total 1335 / 1335 2236.9 / 2266.2 663.6 / 663.6
Output Total 3400 / 3400 3350 / 3400 320 / 320
Balance -2065 / -2065 -1113.1 / -1133.8 343.6 / 343.6
SaO2 [CPAP/PSV] 98
SaO2 [SIMV] 100
SaO2 95
Nasal Cannula flow liters per 3
minute
Physical Exam
General: Comfortable
HEENT: Normocephalic
Cardiovascular: S1-S2
Respiratory: Clear, Non-Labored Respirations and Chest Tube (No excessive drainage. No air leak)
GI: Soft and Non Distended
Neurology: Awake, Alert and No Motor Deficits
Labs/Micro/Reports
Lab Data
08/11/24 04:05
08/11/24 04:05
Laboratory Results
08/10/24 08/10/24 08/10/24
15:50 19:36 21:15
PT 13.1
INR 0.95
APTT 31.2
pH 7.37 7.44 7.46 H
pCO2 38 H 29 L 32
pO2 72 L 150 H 134 H
HCO3 22.0 19.7 L 22.8
O2 Delivery Level Not Reportable
08/10/24 08/11/24
22:51 04:05
PT
INR
APTT
pH 7.47 H 7.48 H
pCO2 31 L 30 L
pO2 111 H 78 L
HCO3 22.6 22.3
O2 Delivery Level 4l
Microbiology
08/04/24 04:17 Blood/Venous Blood Culture - Final
S aureus-Methicillin Sensitive
08/04/24 04:17 Blood/Venous Gram Stain - Final
08/05/24 09:21 Blood/Venous Blood Culture - Final
S aureus-Methicillin Sensitive
08/05/24 09:21 Blood/Venous Gram Stain - Final
08/04/24 04:17 Blood/Venous Blood Culture - Final
S aureus-Methicillin Sensitive
08/04/24 04:17 Blood/Venous Gram Stain - Final
08/10/24 13:45 Tissue Tissue Culture - Preliminary
Staphylococcus aureus
08/10/24 13:45 Tissue Gram Stain - Preliminary
08/08/24 05:31 Blood/Venous Blood Culture - Preliminary
S aureus-Methicillin Sensitive
08/08/24 05:31 Blood/Venous Gram Stain - Preliminary
08/10/24 04:52 Blood/Venous Blood Culture - Preliminary
No Growth in 24 hours- Final report to follow
08/09/24 04:34 Blood/Venous Blood Culture - Preliminary
Positive culture in progress
08/09/24 04:34 Blood/Venous Gram Stain - Preliminary
08/07/24 09:52 Blood/Venous Blood Culture - Preliminary
S aureus-Methicillin Sensitive
08/07/24 09:52 Blood/Venous Gram Stain - Preliminary
08/06/24 03:49 Blood/Venous Blood Culture - Preliminary
S aureus-Methicillin Sensitive
08/06/24 03:49 Blood/Venous Gram Stain - Preliminary
08/06/24 03:30 Blood/Venous Blood Culture - Preliminary
S aureus-Methicillin Sensitive
08/06/24 03:30 Blood/Venous Gram Stain - Preliminary
08/03/24 22:57 Feces/Stool Salmonella/Shigella Culture - Final
No Salmonella, Shigella, Aeromonas or Plesiomonas species
isolated.
08/03/24 22:57 Feces/Stool Campylobacter Culture - Final
No Campylobacter species isolated.
08/03/24 22:57 Feces/Stool Shiga Toxin Test - Final
No E. coli Shiga Toxin 1 or 2 detected.
08/03/24 22:57 Feces/Stool Stool Leukocytes - Final
[2024-08-11 13:53] LABS: Fibrinogen 330 MG/DL (199-459)
[2024-08-11] MEDS: FERRLECIT 110 MG IV (13:53)
--- NOTE | 2024-08-11 14:00 | PTCARENOTE ---
CT CONCRETE TILE MACHINE OPERATOR notified of CI and UO off dobutamine. Orders to keep lexi and sera for now. Recheck CI in 1 hour.
--- NOTE | 2024-08-11 14:04 | CM ---
CM following for DC planning needs.
Met w/ patient + spouse at bedside. Pt. was sleeping but awakened to name and was able to converse.
Patient is POD#1, reports that she is feeling okay.
Will need PT-OT, PMR once able to participate.
I anticipate that patient will need rehab placement upon DC. ARU versus SNF. Will need to assess activity tolerance.
Will need to determine whether patient will be continuing chemotherapy post CT Surg. Chemotherapy will not be able to be administered while at rehab.
[2024-08-11 14:05] LABS: Glucose - Point of Care 98 mg/dl (70-99)
--- NOTE | 2024-08-11 15:00 | PTCARENOTE ---
Repeat CI 2.37. UO of 20ml/hr. CT DESIGNER/WRITER notified and orders to d/c swan. Right IJ swan d/c, New central line dressing applied to cordis. Awaiting PT/OT to get OOB.
[2024-08-11 15:01] LABS: Glucose - Point of Care 96 mg/dl (70-99)
--- NOTE | 2024-08-11 16:00 | PTCARENOTE ---
Pt assisted with PT to get OOB with 3 assist. Rectal trumpet fell out. Pt incontinent of large amount of soft, not runny, brown/green stool. Pt tolerated getting OOB. Surgical sites stable. Epicardial AV wires insulated. Remains NSR with rates in
the 80s. BP 115/79. POX 93% on 3L NC. CT output WNL. Adair intact, draining ~20ml/hr pamela urine. Right IJ cordis, Left radial sera, and PIV x2 intact. NGT output not excessive.
[2024-08-11 16:20] LABS: Glucose - Point of Care 105 mg/dl (70-99)
[2024-08-11 18:08] LABS: Glucose - Point of Care 92 mg/dl (70-99)
--- NOTE | 2024-08-11 18:54 | PTCARENOTE ---
Left radial sera d/c per orders.
--- NOTE | 2024-08-11 20:00 | PTCARENOTE ---
Patient received from RN @ 1900. AOx3. Occasionally forgetful. See worklist for NIH stroke scale assessment. Patient lying in bed w/ call lopez in reach. NSR BP 95/63 HR 84 Heart sounds audible. A and V wires insulated. +2 bilateral edema
noted on hands. +3 lower feet edema noted. Radial and pedal pulses present. 2x mediastinal CT set to -20 wall suction draining serosanguineous fluid. No crepitus, tidaling, or air leaks noted. POX 93% 5L NC. Lungs diminished bilaterally. IS
1250. Bowel sounds hypoactive. NG tube @ 60cm in right nare set to low intermittent suction. Adair draining clear yellow urine. Sternal dressing dry and intact w/ scant old drainage noted. CT dressing dry and intact. RIJ cordis and 2 left hand
PIV patent and intact. Insulin infusing per protocol.
[2024-08-11 20:03] LABS: Glucose - Point of Care 96 mg/dl (70-99)
[2024-08-11 22:21] LABS: Glucose - Point of Care 87 mg/dl (70-99)
[2024-08-11] MEDS: NOVOLIN R INSULIN INFUSION 100 IV (23:17)
[2024-08-11] MEDS: ATIVAN PO (23:19)
--- NOTE | 2024-08-11 23:58 | PTCARENOTE ---
Patient reassessed. NSR BP 106/61 HR 81 POX 91% 5L NC. Patient washed w/ CHG cloths.
[2024-08-12] VITALS (35 sets, daily range): BP systolic 90–138; BP diastolic 47–89; PULSE 84–85; O2SAT 97; BMI 32.6
[2024-08-12 00:09] LABS: Glucose - Point of Care 79 mg/dl (70-99)
[2024-08-12 01:58] LABS: Glucose - Point of Care 88 mg/dl (70-99)
[2024-08-12 04:09] LABS: Glucose - Point of Care 78 mg/dl (70-99)
[2024-08-12 04:15] LABS: Hematocrit 24.1 % (37.0-47.0); Hemoglobin 8.2 g/dL (12.0-16.0); Mean Corpuscular Hgb 31.4 pg (27.0-31.0); Mean Corpuscular Volume 92.3 fL (81.0-99.0); Mean Platelet Volume 11.7 fL (7.4-10.4); Platelet Count 103 10^3/uL (130-400); Red Blood Cell Count 2.61 10^6/uL (4.20-5.40); Red Cell Dist. Width 18.8 % (11.5-14.5)
[2024-08-12 04:21] LABS: INR 1.67; PT 19.9 Sec (11.4-14.6)
[2024-08-12 04:22] LABS: APTT 34.3 Sec (23.4-35.0)
[2024-08-12 04:34] LABS: Blood Urea Nitrogen 22 mg/dl (7-17); Calcium 7.9 mg/dl (8.4-10.2); Carbon Dioxide 24 mmol/L (22-30); Chloride 116 mmol/L (98-107); Estimated Creatinine Clearance 61 ml/min; Glucose 71 mg/dl (70-99); Potassium 3.4 mmol/L (3.5-5.1); Sodium 143 mmol/L (135-145); eGFR > 60.00
--- NOTE | 2024-08-12 04:37 | PTCARENOTE ---
Patient reassessed. NSR 118/71 HR 88 POX 95% 5L NC. Labs drawn. Blood cultures straight stick attempted by 4 different RN's. Blood cultures not obtained. Will reach out to phlebotomy. Patient BM noted.
[2024-08-12 05:08] LABS: % Basophils 0.2 % (0-2); % Immature Granulocytes 1.2 % (0-0.5); % Lymphocytes 10.9 % (20.5-51.1); % Monocytes 4.4 % (1.7-9.3); % Neutrophils 83.3 % (42.2-75.2); Absolute Immature Granulocytes 0.2 10^3/uL (0-0.05); Absolute Lymphocytes 1.4 10^3/uL (1.2-3.4); Absolute Monocytes 0.6 10^3/uL (0.1-0.6); Absolute Neutrophils 10.8 10^3/uL (1.4-6.5); Nucleated Red Blood Cells % 0.2 %
[2024-08-12] MEDS: KCL 40 MEQ PO (05:11)
[2024-08-12] MEDS: SYNTHROID 50 MCG PO (05:11)
[2024-08-12] MEDS: TYLENOL 1000 MG PO ×3 (05:11→21:50)
[2024-08-12] MEDS: LR IV (05:38)
[2024-08-12] MEDS: VANCOCIN 275 MG IV ×2 (05:51→18:42)
[2024-08-12 06:13] LABS: Glucose - Point of Care 83 mg/dl (70-99)
--- NOTE | 2024-08-12 07:49 | W.PN.CT ---
Today's Communication / Plan
-
-pod #2
-doing well, no issues overnight
-CT output: 2 meds 65/165 in 12/24 hrs
-Weber pump output 150/250
-K 3.2 - got 40 KCL this am
-drips: insulin
-finished 1L of LR @ 50/hr overnight
-follow blood cx from 08/11. on iv Daptomycin and iv and po Vancomycin as per ID
-encourage IS, OOB
-appreciate everyone's input
Assessment / Plan
-
- Mitral valve endocarditis- s/p Radical mitral valve repair [debridement of annulus, patch repair, annuloplasty with 30 mm band]; Open left sided maze procedure [cryoablation]; Left atrial appendage exclusion [35 mm clip] by Dr. Brian on 08/10/24,
pod #2
- Intraop DONNELL: LVEF was pre and post 60% with no new regional wall motion abnormalities. RV was normal size and function. After coming off cardiopulmonary bypass there was no residual leak and the mean gradient across the valve was 2. The left
atrial appendage was also opened up prior to ligation to ensure that there was no vegetations within it.
- Mitral valve endocarditis with embolic phenomenon and sepsis, moderate mitral valve insufficiency
- Multiple CVAs
- Acute metabolic encephalopathy
- Active breast cancer, on chemotherapy
- Chemotherapy induced diarrhea
- Multiple electrolyte imbalances
- Paroxysmal atrial fibrillation
- Immunocompromise
- Acute hypoxic respiratory failure
- Stage 1 obesity, BMI 31
- Acute postop blood loss anemia- s/p 4 pRBCs total (1 preop, 2 intraop and 1 postop)
- Acute postop coagulopathy/thrombocytopenia - s/p Factor 7, 3 platelets and 2 FFPs
- Acute postop atelectasis
- Acute postop hypovolemia with subsequent hypervolemia
Discussed patient care with: Nursing and Care Team
Subjective
-
Date of Service: August 12, 2024
Objective Data
-
Lab Results
08/12/24 03:35
08/12/24 03:36
PT 19.9 Sec (11.4-14.6) H 08/12/24 03:36
INR 1.67 08/12/24 03:36
APTT 34.3 Sec (23.4-35.0) 08/12/24 03:36
Vital Signs
Vital Signs
Temp Pulse Resp BP Pulse Ox
98.4 F 90 19 110/77 95
08/12/24 04:00 08/12/24 06:00 08/12/24 06:00 08/12/24 06:00 08/12/24 06:00
CT Intake/Output/Weight
08/11/24 08/12/24 08/12/24
18:59 06:59 18:59
Intake Total 1487.0 / 2385.2 898.2 / 2385.2
Output Total 505 / 1035 530 / 1035
Balance 982.0 / 1350.2 368.2 / 1350.2
SaO2: 95
Physical Exam
-
General: Awake and AOx3
Cardiovascular: Regular rate & rhythm, No Murmurs and No Rub
Respiratory: Decreased Breath Sounds
Sternum: Stable
Incision: Clean, Dry and Intact
Extremities: No Edema
Abdomen: soft, nontender, nondistended, rectal trumpet is out 08/11
Data Reviewed
-
Lab Results: Results Reviewed
Medications: Active Meds Reviewed
Chest X-Ray: Report Reviewed and Image Reviewed
ECG: Report Reviewed and Image Reviewed
[2024-08-12] MEDS: LIDOCAINE 4% PATCH 1 PATCH TOPICAL (07:57)
[2024-08-12] MEDS: PROTONIX IV 40 MG IV (07:58)
[2024-08-12] MEDS: NEURONTIN 100 MG PO ×3 (07:58→21:50)
[2024-08-12] MEDS: PACERONE 200 MG PO ×3 (07:58→21:50)
[2024-08-12] MEDS: LOW STRENGTH ASPIRIN 81 MG PO (07:58)
[2024-08-12] MEDS: MAGNESIUM OXIDE 500 MG PO ×2 (07:58→20:49)
[2024-08-12] MEDS: NSS (PRESERVATIVE FREE) 10 ML IV (07:58)
[2024-08-12] MEDS: NSS 500 IV (07:58)
--- NOTE | 2024-08-12 08:00 | PTCARENOTE ---
Resumed car of patient. Pt alert and oriented x4. GO with equal strength. NIH 2. Mild facial droop, mild left visual deficit. Denies pain, nausea, and shortness of breath. 2 assist to turn in bed. NSR on tele with rates 80s-90s. BP 129/80. Heart
tones audible. Epicardial AV wires insulated. Bilateral radial and DP pulses palpable. +3 lower extremity edema. +1 hand edema. POX 95% on 5L NC. Lungs diminished in the bases. IS [id number] achieved. No cough noted. Mediastinal chest
tubes x2 y-sited to 1 atrium to -20cm suction draining serosanguineous fluid. No air leaks, tidaling, crepitus noted. Abdomen soft, round, nontender. +BS. NGT to R nare to 60cm to LIS draining green fluid. Assisted onto bedpan for moderate amounts
of dark green stool. Adair catheter intact draining adequate amounts of pamela urine. Sternal incision with RAYMOND dressing intact flashing green. Old dressing noted, no additional. CT dressing CDI. Right IJ cordis intact NSS KVO. PIV x2 intact.
Insulin gtt d/c per orders. Blood cultures obtained. See MAR for medication administration. See worklist for complete nursing assessment. Plan of care reviewed and patient in agreement.
[2024-08-12 08:09] LABS: Glucose - Point of Care 81 mg/dl (70-99)
--- NOTE | 2024-08-12 08:09 | PHA.VAN.FU ---
Vancomycin Assessment / Plan
- Assessment
Renal Function: Stable
WBC's are: Trending Up (13 from 8.8 yesterday)
In the past 24 hrs, patient has been: Afebrile
Concomitant Antimicrobials: Daptomycin
- Dosing Plan
Continue: Vancomycin 1250mg IV Q12H
- Monitoring Plan
Peak Level: 08/12/24 @2130
Trough Level: 08/13/24 @0530
- Follow Up
Pharmacy will continue to follow.
Vancomycin Follow UP
- -
Patient Age: 64
Patient Sex: Female
Vancomycin Day #: 5
Indication: Endocarditis
Requesting Provider: Dr Roy
Pertinent Antimicrobial Allergies:
Cefprozil - hives
cephalosporins - unknown
Ciprofloxacin - unknown
Penicillins - hives
Trimethoprim / sulfamethoxazole (Bactrim) - hives
Height / Weight:
Height 5 ft 5 in
Actual Weight 88.9 kg
Pertinent Past Medical History: Breast cancer (port)
- Vital Signs / Lab Results
Temp Pulse Resp BP Pulse Ox
98.4 F 90 19 110/77 95
08/12/24 04:00 08/12/24 06:00 08/12/24 06:00 08/12/24 06:00 08/12/24 07:56
Lab Results - Hematology
08/10/24 08/11/24 08/12/24
04:52 04:05 03:35
WBC 4.2 L 8.8 13.0 H
Lab Results - Chemistry
08/09/24 08/10/24 08/10/24
14:46 04:40 15:50
BUN 15 15 16
Creatinine 0.9 0.9 1.0
Estimated Creat Clear 67 67 61
08/11/24 08/12/24
04:05 03:36
BUN 20 H 22 H
Creatinine 1.1 H 1.0
Estimated Creat Clear 55 61
Microbiology Results
08/10/24 04:52 Blood Culture - Preliminary
Blood/Venous No Growth in 48 hours- Final report to follow
08/11/24 04:12 Blood Culture - Preliminary
Blood/Venous No Growth in 24 hours- Final report to follow
08/04/24 04:17 Blood Culture - Final
Blood/Venous S aureus-Methicillin Sensitive
Gram Stain - Final
08/05/24 09:21 Blood Culture - Final
Blood/Venous S aureus-Methicillin Sensitive
Gram Stain - Final
08/04/24 04:17 Blood Culture - Final
Blood/Venous S aureus-Methicillin Sensitive
Gram Stain - Final
08/10/24 13:45 Tissue Culture - Preliminary
Tissue Staphylococcus aureus
Gram Stain - Preliminary
08/08/24 05:31 Blood Culture - Preliminary
Blood/Venous S aureus-Methicillin Sensitive
Gram Stain - Preliminary
08/09/24 04:34 Blood Culture - Preliminary
Blood/Venous Positive culture in progress
Gram Stain - Preliminary
08/07/24 09:52 Blood Culture - Preliminary
Blood/Venous S aureus-Methicillin Sensitive
Gram Stain - Preliminary
Therapeutic Drug Monitoring
Vancomycin Peak Cancelled 08/10/24 21:30
Vancomycin Trough 14.9 ug/ml (5-20) 08/05/24 05:14
[2024-08-12] MEDS: SENOKOT-S PO (08:10)
[2024-08-12] MEDS: BACTROBAN 2% OINTMENT 1 APPLIC NASAL ×2 (08:10→20:49)
[2024-08-12] MEDS: CLARITIN PO (08:10)
[2024-08-12] MEDS: FIRVANQ 125 MG PO ×2 (08:17→20:49)
--- NOTE | 2024-08-12 08:30 | PTCARENOTE ---
CT HOTEL GENERAL MANAGER at bedside to pull Epicardial AV wires. Pt tolerated. q15min vitals and CT output monitored.
--- NOTE | 2024-08-12 08:30 | W.PN.UPDATE ---
Update Note
Progress Note Update
No pacing required over night. Two epicardial atrial wires and one bipolar ventricular wire removed without difficulty. Bedres tx 1 hour and vital signs q15min per protocol
--- NOTE | 2024-08-12 08:46 | W.PN.ID1 ---
Date of Service
Date of Service: August 12, 2024
Today's Communication
Continue current abx's.
Assessment / Plan
# Sustained complicated Staphylococcus aureus (MSSA) bacteremia; bcx's clearing from 08/10
# Catheter associated bloodstream infection from port, present on admission.
. 08/04 s/p port removed, cath tip MSSA
# Eyak MV infective endocarditis
.08/08 DONNELL 0.9cm mobile vege attached to MV
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
# Acute urinary retention, peña placed 08/09/24
# Multiple antibiotic allergies including penicillin, cephalosporins, sulfa, cipro
# New onset Afib, now in sinus
# R Breast cancer on adjuvant chemotherapy
# Neutropenia (resolved) and Pancytopenia due to chemotherapy
- 08/10, 08/11 Blood cx neg to date
- 08/10 s/p open radical mitral valve repair debridement of annulus, patch repair, annuloplasty with 30 mm band
- 08/10 MV tissue cx: MSSA
- Continue to repeat blood cultures daily until at least 2 sets neg.
- Continue high dose daptomycin 1g IV q24h and IV Vancomycin (crosses blood-brain barrier).
- Follow weekly CK while on daptomycin.
- Will eventually de-escalate abx's once patient is stabilized.
- Stool C. diff Ag+, toxin neg = colonization
- Continue prophylactic Vancomycin 125mg po daily while on systemic abx.
- Diarrhea resolving
����������������������������������������������������������
Chief Complaint
-: Clinical Sepsis, Bacteremia and Other (endocarditis)
Subjective / Review of Systems
No change of L vision loss.
Vital Signs / Physical Exam
Vital Signs
Vital Signs
Temp Pulse Resp BP Pulse Ox
98.4 F 90 19 110/77 95
08/12/24 04:00 08/12/24 06:00 08/12/24 06:00 08/12/24 06:00 08/12/24 07:56
Physical Exam
Constitutional: Comfortable and Chronically Ill
Cardiovascular: Regular Rate and S1/S2
Pulmonary: Clear (anteriorly)
Gastrointestinal: Soft, Non Tender, Non Distended and Normal Bowel Sounds
Extremities: Negative Edema
Neurological: AO x 3
Objective Data
Lab Data
Lab Results
08/12/24 03:35
08/12/24 03:36
PT 19.9 Sec (11.4-14.6) H 08/12/24 03:36
INR 1.67 08/12/24 03:36
APTT 34.3 Sec (23.4-35.0) 08/12/24 03:36
Estimated Creat Clear 61 ml/min 08/12/24 03:36
Lactic Acid Cancelled 08/03/24 12:03
Total Bilirubin 0.9 mg/dl (0.2-1.3) 08/09/24 04:34
AST 42 U/L (14-36) H 08/09/24 04:34
ALT 38 U/L (0-35) H 08/09/24 04:34
Alkaline Phosphatase 118 U/L (38-126) 08/09/24 04:34
Most recent labs reviewed.
Micro Results:
08/10/24 13:45 Tissue Culture - Preliminary
Tissue Staphylococcus aureus
Gram Stain - Preliminary
08/12/24 07:45 Blood Culture - Pending
Blood/Venous
08/10/24 04:52 Blood Culture - Preliminary
Blood/Venous No Growth in 48 hours- Final report to follow
08/11/24 04:12 Blood Culture - Preliminary
Blood/Venous No Growth in 24 hours- Final report to follow
08/04/24 04:17 Blood Culture - Final
Blood/Venous S aureus-Methicillin Sensitive
Gram Stain - Final
08/05/24 09:21 Blood Culture - Final
Blood/Venous S aureus-Methicillin Sensitive
Gram Stain - Final
08/04/24 04:17 Blood Culture - Final
Blood/Venous S aureus-Methicillin Sensitive
Gram Stain - Final
08/08/24 05:31 Blood Culture - Preliminary
Blood/Venous S aureus-Methicillin Sensitive
Gram Stain - Preliminary
08/09/24 04:34 Blood Culture - Preliminary
Blood/Venous Positive culture in progress
Gram Stain - Preliminary
08/07/24 09:52 Blood Culture - Preliminary
Blood/Venous S aureus-Methicillin Sensitive
Gram Stain - Preliminary
08/06/24 03:49 Blood Culture - Preliminary
Blood/Venous S aureus-Methicillin Sensitive
Gram Stain - Preliminary
08/06/24 03:30 Blood Culture - Preliminary
Blood/Venous S aureus-Methicillin Sensitive
Gram Stain - Preliminary
08/03/24 22:57 Salmonella/Shigella Culture - Final
Feces/Stool No Salmonella, Shigella, Aeromonas or Plesiomonas species
isolated.
Campylobacter Culture - Final
No Campylobacter species isolated.
Shiga Toxin Test - Final
No E. coli Shiga Toxin 1 or 2 detected.
Stool Leukocytes - Final
08/05/24 09:33 Blood Culture - Preliminary
Blood/Venous S aureus-Methicillin Sensitive
Gram Stain - Preliminary
08/04/24 08:18 Catheter Tip Culture - Final
Catheter Tip S aureus-Methicillin Sensitive
08/02/24 20:31 Blood Culture - Final
Blood/Venous S aureus-Methicillin Sensitive
Gram Stain - Final
08/03/24 21:45 Urine Culture - Final
Urine S aureus-Methicillin Sensitive
08/02/24 20:28 Urine Culture - Final
Urine S aureus-Methicillin Sensitive
08/02/24 20:27 Blood Culture - Final
Blood/Venous S aureus-Methicillin Sensitive
Gram Stain - Final
08/02/24 20:51 Blood Culture - Final
Blood/Venous S aureus-Methicillin Sensitive
Gram Stain - Final
08/03/24 22:57 C. difficile GDH Antigen & Toxins - Final
Feces/Stool C. difficile antigen positive, toxin negative.
Clostridium difficile present, but toxin not detected.
Patient may be a carrier, colonized with nontoxinogenic
strain or the level of toxin in sample is below detection
limits. This information should be used in conjunction with
the patient's clinical history.
- Final
Negative for Norovirus GI and GII.
08/02/24 20:39 Influenza Types A & B (DAHLIA) - Final
Nasal Swab Negative for Influenza A & B, NAAT
Negative results must be combined with clinical observations
and patient history.
Nucleic Acid Amplification test (NAAT)performed on the
[employer] platform.
08/08/24 Brain MRI: Several tiny foci of nonhemorrhagic acute/subacute infarcts within the bilateral centrum semiovale/periventricular regions and right cerebellum.
08/02/24 CXR: Probable infectious/inflammatory pneumonitis.
[2024-08-12 09:13] LABS: Albumin 2.15 g/dL (3.75-5.01); Alpha 1 Globulin 0.61 g/dL (0.19-0.46); Alpha 2 Globulin 1.07 g/dL (0.48-1.05); SPEP IFE Reflex Not Done; Total Protein-Electrophoresis 5.5 g/dL (6.3-8.2)
[2024-08-12] MEDS: LASIX 40 MG IV (09:17)
[2024-08-12] MEDS: LOPRESSOR 5 MG IV (09:17)
--- NOTE | 2024-08-12 10:00 | PTCARENOTE ---
Minimal CT output post AV wire pull. Mediastinal CT x2 d/c per orders. NGT d/c per orders. Pt tolerated. PT/OT at bedside.
--- NOTE | 2024-08-12 10:53 | W.PN.CD ---
Today's Communication / Plan
-
Agree with IV Lasix
Continue routine postop care per CT surgery
Plan for anticoagulation once safe from surgical standpoint
Impression / Plan
-
Card: Espinoza (for palps, AT/PSVT)
Mitral valve endocarditis, mitral regurgitation:
Sepsis due to MSSA bacteremia:
-DONNELL 08/08/2024: LVEF 60-65%, mobile vegetation attached to the base of P1/P2 segment of MV (0.9 x 0.7 x 0.7 cm), mild MR
-Status-post radical mitral valve repair [debridement of annulus, patch repair, annuloplasty with 30 mm band], open left sided maze procedure [cryoablation], LAAE [35 mm clip], Dr. Brian 08/10/24
-post-op, was on Levophed, dobutamine, and vasopressin, all of which have been stopped
-Remains in sinus rhythm on telemetry.
-Continue routine postsurgical care as directed by CT Surgery.
-Continue Daptomycin and Vancomycin
Acute/subacute bihemispheric embolic stroke
-Likely cardioembolic from MV vegetation
-Continue ASA. Will need AC for afib long-term
PAF, RVR:
- AFib is NEW this admit. Likely due to sepsis
- Anticipate at least several months of Amio- on dilt ER 240 a day and amiodarone 400 mg twice daily pre-op
- she is s/p MAZE/CLAUDIA clip as above
- Given AFib, after recovers from IE and MV surgery, plan to initiate Eliquis
- [id number] score is 5 for age, female, HTN, CVA
Hypokalemia:
- Replete as needed.
Pancytopenia
- Per oncology, etiology thought to be more likely ongoing infection then chemotherapy though both could be contributing
- Has not been thrombocytopenic in the past with chemo
Breast Ca, on chemo
HTN
Hx of PSVT (mechanism uncertain)
Subjective: Feels well, working with PT sitting at the edge of the bed.
Physical Exam
Vital Signs/Labs
Vital Signs
Temp Pulse Resp BP Pulse Ox
97.4 F 83 15 116/74 96
08/12/24 08:00 08/12/24 10:15 08/12/24 10:15 08/12/24 10:15 08/12/24 10:00
08/11/24 08/12/24 08/13/24
06:59 06:59 06:59
Actual Weight 189 lb 2.506 oz 195 lb 15.855 oz
08/12/24 03:35
08/12/24 03:36
PT 19.9 Sec (11.4-14.6) H 08/12/24 03:36
INR 1.67 08/12/24 03:36
APTT 34.3 Sec (23.4-35.0) 08/12/24 03:36
Magnesium 2.0 mg/dl (1.6-2.3) 08/12/24 03:36
Triglycerides 181 mg/dl (10-149) H 08/08/24 05:31
LDL Cholesterol, Calc 49 mg/dl 08/08/24 05:31
VLDL Cholesterol, Calc 36 mg/dl (0-30) H 08/08/24 05:31
HDL Cholesterol 22 mg/dl 08/08/24 05:31
Physical Exam
Constitutional: No acute distress and Comfortable
Cardiovascular: Rhythm & rate is regular, Pedal edema present, S1S2 is normal and Murmur/rub/gallop absent
Respiratory: Respiratory effort normal and Crackles Present
Neuro/Psych: AO x 3
Data Reviewed
-
Date of Service: August 12, 2024
Medical Decision Making: Reviewed Test Results, Independent Historian Assessment, Test Interpretation and Review of Case with other Provider
EKG: Tracing Personally Visualized and interpreted
Echo: Report Reviewed by me
Labs: Labs Reviewed by me
[2024-08-12] MEDS: CUBICIN 20 MG IV (11:45)
--- NOTE | 2024-08-12 12:00 | PTCARENOTE ---
Pt reassessed while she was sitting up in the chair. Pt alert and oriented x4. No change in neuro status. NSR with rates in the 80s. BP 99/71. POX 97% on 4L NC. Pt independently doing IS. Surgical sites stable. Adair draining large amounts of clear
yellow urine. Denies pain. Anxiously awaiting speech consult to have clear liquids.
--- NOTE | 2024-08-12 12:21 | W.PN.ONC ---
Today's Communication / Plan
-
No signs of DIC
CBC daily
Impression
Impression
Medullary breast cancer, stage T2 N0 M0, HER+, HER2 3+, on adjuvant TCHP, intent of care curative
Port infection complicated by bacteremia, s/p port removal 08/04
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
Hypothyroidism
Atrial fibrillation- new to this admission
Left eye visual deficit likely septic emboli-new to this admission
pancytopenia secondary to antineoplastic therapy+/-infection -neutropenia/leukopenia resolved -thrombocytopenia stable at 103,000 today - Hgb stable 8.2 g/dL.
Plan
Plan
Last two cycles of chemo, if given, could be administered via peripheral IV. No plan for systemic therapy at this time.
Herceptin and Perjeta are both Sub-Q and do not require port.
Would not replace port.
Follow blood cultures- need at least two negative sets
Anticoagulation for atrial fibrillation on hold-on Cardizem and amiodarone-remains in SR
Neuro following-MRI showed several tiny foci of nonhemorrhagic acute/subacute infarcts within the bilateral centrum semiovale/periventricular regions and right cerebellum-receiving aspirin
Status post left atrial appendage exclusion and MV repair by cardiothoracic surgery on 08/10 and mediastinal chest tube insertion
Acute postop blood loss anemia- s/p 4 pRBCs total (1 preop, 2 intraop and 1 postop)
Acute postop coagulopathy/thrombocytopenia - s/p Factor 7, 3 unit of platelets and 2 FFPs
Diarrhea improving-on prophylactic oral Vanco
Platelet count (s/p 3 units plt) and Hgb (s/p 5 units pRBC since admission) remain stable as of today.
DIC panel checked-slightly elevated PT and LDH, which is non-specific
Active type and screen
Recommend K-citrate for hypokalemia instead of K-chloride
Will cont to follow
Subjective/Objective
Subjective/Objective
Patient no change in left visual defect. Some pain around chest tube site. No other complaints.
Crackles on lung auscultation.
Vital Signs:
Vital Signs
Temp Pulse Resp BP Pulse Ox
97.9 F 82 16 99/71 99
08/12/24 11:00 08/12/24 12:00 08/12/24 11:00 08/12/24 12:00 08/12/24 11:00
Lab Results:
Laboratory Data
WBC 13.0 10^3/uL (4.8-10.8) H 08/12/24 03:35
Hgb 8.2 g/dL (12.0-16.0) L 08/12/24 03:35
Plt Count 103 10^3/uL (130-400) L 08/12/24 03:35
PT 19.9 Sec (11.4-14.6) H 08/12/24 03:36
INR 1.67 08/12/24 03:36
APTT 34.3 Sec (23.4-35.0) 08/12/24 03:36
eGFR > 60.00 08/12/24 03:36
Orders
Orders
Orders From Last 24 Hours
08/11/24 13:05
Fibrinogen Routine
LDH Routine
08/12/24 03:35
Complete Blood Count/With Diff IN AM
08/12/24 03:36
PTT IN AM
Prothrombin Time IN AM
--- NOTE | 2024-08-12 12:35 | PTOTSP ---
Speech Language Pathology
Pt seen for dysphagia tx. Sitting upright in recliner upon arrival. Xerostomia noted. Mildly hoarse and strained vocal quality noted. Provided sips of water via straw in addition to jello. No oral difficulty noted with limited consistency. No
overt signs of aspiration.
Recommend:
(1) Thin liquids (limited to clear liquids by CT)
(2) Aspiration precautions: sit upright, slow rate, single sips
(3) Meds whole with liquid as tolerated
(4) STRATEGIC SOLUTIONS CONSULTANT to continue to follow
[2024-08-12] MEDS: FERRLECIT 110 MG IV (13:09)
[2024-08-12] MEDS: KCL 100 IV ×2 (13:10→23:42)
--- NOTE | 2024-08-12 13:50 | W.PN.ONC2 ---
Today's Communication / Plan
-
monitor CBC daily
Impression
Impression
Medullary breast cancer, stage T2 N0 M0, HER+, HER2 3+, on adjuvant TCHP, intent of care curative
Port infection complicated by bacteremia, s/p port removal 08/04
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
Hypothyroidism
Atrial fibrillation- new to this admission
multiple cva with Left eye visual deficit -new to this admission
pancytopenia secondary to antineoplastic therapy+/-infection -neutropenia/leukopenia resolved -platelets stable >100,000, no evidence of acute DIC with normal fibrinogen
Acute postop blood loss anemia- s/p 4 pRBCs total (1 preop, 2 intraop and 1 postop)
Acute postop coagulopathy/thrombocytopenia - s/p Factor 7, 3 unit of platelets and 2 FFPs
Diarrhea improving-on prophylactic oral Vanco
Plan
Plan
acute management per ICU, CT surgery
Subjective/Objective
Subjective
no new complaints
continues L eye visual deficit
OOB->chair
Vital Signs:
Vital Signs
Temp Pulse Resp BP Pulse Ox
97.9 F 92 16 114/69 96
08/12/24 11:00 08/12/24 13:00 08/12/24 11:00 08/12/24 13:00 08/12/24 13:00
Lab Results:
Laboratory Data
WBC 13.0 10^3/uL (4.8-10.8) H 08/12/24 03:35
Hgb 8.2 g/dL (12.0-16.0) L 08/12/24 03:35
Plt Count 103 10^3/uL (130-400) L 08/12/24 03:35
PT 19.9 Sec (11.4-14.6) H 08/12/24 03:36
INR 1.67 08/12/24 03:36
APTT 34.3 Sec (23.4-35.0) 08/12/24 03:36
eGFR > 60.00 08/12/24 03:36
Physical Exam
HEENT: Moist Mucous Membranes; No Jaundice
Pulmonary: Clear
GI: Soft
Extremities: Pulses Present
[2024-08-12 14:11] LABS: Vitamin B1, Whole Blood 75 nmol/L (70-180)
--- NOTE | 2024-08-12 15:00 | PTCARENOTE ---
received report from previous RN. Pt OOB in chair, resting comfortably. AAOX4. generalized weakness noted throughout. SR on telemetry heart rate in 90s. pulses palpable. +2 edema in hands, +3 in lower extremities. 95-97% on 3L nasal cannula. lung
sounds diminished in bases. pt denies nausea, tolerating clear liquids at this time. incontinentx1 of loose greenish brown stool. peña draining pamela urine. surgical sites CDI. pt very heavy 2 assist to stand with rolling walker. pt updated on plan
of care
--- NOTE | 2024-08-12 17:11 | CM ---
jaqui banuelos dc plans. plan is for acute care rehab with IV Antibx. jaqui to f/u thursday
--- NOTE | 2024-08-12 18:30 | PTCARENOTE ---
pt assisted back to bed with very heavy 2 assist- pt stated feels like legs are very weak and they gave out under her when standing. pt tolerating clear liquids, no nausea.
--- NOTE | 2024-08-12 20:00 | PTCARENOTE ---
Assumed care of the patient at 1900. AOx4, GO, mild R hand grasp weakness and B/L lower extremity weakness; NIH 6 for facial droop, left visual deficit, and B/L LE weakness. SR on CM rates 70-80's, pulses palpable, heart tones audible, +2
generalized edema, pitting edema of LEs. Pt on 5LNC, lungs dim at the bases, IS encouraged, no cough appreciated. Abd SNT, + BS, patient reports loose/liquid stools. Adair catheter in place draining clear yellow urine. MSI w/ RAYMOND dressing CDI with
old drainage, CT dressing CDI. RIJ Cordis, PIVx2 INT. See nursing work list for additional details. Plan of care reviewed with patient and spouse at bedside, in agreement, call lopez within reach, assessment of needs ongoing.
[2024-08-12] MEDS: SENOKOT-S 1 TABLET PO (20:49)
[2024-08-12] MEDS: LOPRESSOR 12.5 MG PO (20:49)
[2024-08-12] MEDS: ATIVAN 0.5 MG PO (21:50)
[2024-08-12 21:54] LABS: Ionized Calcium 1.13 mMOL/L (1.15-1.33)
[2024-08-12 22:22] LABS: Blood Urea Nitrogen 21 mg/dl (7-17); Calcium 7.8 mg/dl (8.4-10.2); Carbon Dioxide 25 mmol/L (22-30); Chloride 113 mmol/L (98-107); Estimated Creatinine Clearance 69 ml/min; Glucose 118 mg/dl (70-99); Potassium 2.8 mmol/L (3.5-5.1); Sodium 137 mmol/L (135-145); eGFR > 60.00
[2024-08-12] MEDS: CALCIUM GLUCONATE 130 MG IV (22:55)
[2024-08-12 23:23] LABS: Vancomycin Peak 51.1 ug/ml (18-26)
[2024-08-13] VITALS (17 sets, daily range): BP systolic 84–132; BP diastolic 55–88; PULSE 86; BMI 32.8
--- NOTE | 2024-08-13 | PTCARENOTE ---
Fecal management system inserted after x2 watery stools around 2300. CHG bath performed, peña care, patient repositioned for comfort. Pain well controlled at this time; VSS. Call lopez within reach. Peak Vanco drawn returned critically high, CVPA
aware, see paper chart.
--- NOTE | 2024-08-13 02:18 | W.PN.CT ---
Today's Communication / Plan
-
Plan:
-No major issues overnight. Hemodynamically and neurologically intact
-Off all drips
-Still with diarrhea, C difficile Neg., likely from antibiotics. ID following
-MSSA bacteremia, no growth from recent blood cultures x 48hrs. ID following
-Will need PICC line in 1-2 days
-Replete electrolytes
-Monitor plts, was 103 yesterday
-Will discuss oral anticoagulation given PAF S/P MAZE, hx of Cardioembolic CVA
-OOB into chair
-PT/OT f/u
-Wean off of O2
-Encourage use of IS
-For likely repeat echo in 1-2 days
Assessment / Plan
-
- Mitral valve endocarditis- s/p Radical mitral valve repair [debridement of annulus, patch repair, annuloplasty with 30 mm band]; Open left sided maze procedure [cryoablation]; Left atrial appendage exclusion [35 mm clip] by Dr. Brian on 08/10/24,
pod #3
- Intraop DONNELL: LVEF was pre and post 60% with no new regional wall motion abnormalities. RV was normal size and function. After coming off cardiopulmonary bypass there was no residual leak and the mean gradient across the valve was 2. The left
atrial appendage was also opened up prior to ligation to ensure that there was no vegetations within it.
- Mitral valve endocarditis with embolic phenomenon and sepsis, moderate mitral valve insufficiency
- Multiple CVAs
- Acute metabolic encephalopathy
- Active breast cancer, on chemotherapy
- Chemotherapy induced diarrhea
- Multiple electrolyte imbalances
- Paroxysmal atrial fibrillation
- Immunocompromise
- Acute hypoxic respiratory failure
- Stage 1 obesity, BMI 31
- Acute postop blood loss anemia- s/p 4 pRBCs total (1 preop, 2 intraop and 1 postop)
- Acute postop coagulopathy/thrombocytopenia - s/p Factor 7, 3 platelets and 2 FFPs
- Acute postop atelectasis
- Acute postop hypovolemia with subsequent hypervolemia
- Acute postop diarrhea, C. difficile negative
- Acute postop hypokalemia
- Acute postop hypocalcemia
Discussed patient care with: Cardiology, Nursing, Respiratory Therapy, Pharmacy and Care Team
Subjective
-
Date of Service: August 13, 2024
Pt c/o incisional pain and diarrhea, otherwise feels well
Objective Data
-
PT 19.9 Sec (11.4-14.6) H 08/12/24 03:36
INR 1.67 08/12/24 03:36
APTT 34.3 Sec (23.4-35.0) 08/12/24 03:36
Vital Signs
Vital Signs
Temp Pulse Resp BP Pulse Ox
98.7 F 82 18 115/75 97
08/13/24 00:00 08/13/24 00:00 08/13/24 00:00 08/13/24 00:00 08/13/24 00:00
CT Intake/Output/Weight
08/12/24 08/12/24 08/13/24
06:59 18:59 06:59
Intake Total 898.2 / 2395.4 1425.2 / 2435.2 1010 / 2435.2
Output Total 530 / 1075 2805 / 3040 235 / 3040
Balance 368.2 / 1320.4 -1379.8 / -604.8 775 / -604.8
SaO2: 97 (3L)
Physical Exam
-
General: Awake, Oriented and AOx3
Cardiovascular: Regular rate & rhythm, No Murmurs, No Rub and No Gallop
Respiratory: Decreased Breath Sounds (at bases)
Sternum: Stable
Incision: Clean, Dry, Intact and Dressing Intact
Extremities: Edema +1
Data Reviewed
-
Lab Results: Results Reviewed
Medications: Active Meds Reviewed
Chest X-Ray: Report Reviewed and Image Reviewed
ECG: Report Reviewed and Image Reviewed
--- NOTE | 2024-08-13 04:00 | PTCARENOTE ---
Patient sleeping between care. Bp soft, CVPA aware, continue to monitor for now.
[2024-08-13] MEDS: SYNTHROID 50 MCG PO (05:29)
[2024-08-13 05:49] LABS: Hematocrit 24.2 % (37.0-47.0); Hemoglobin 8.4 g/dL (12.0-16.0); Mean Corp Hgb Conc. 34.7 g/dL (33.0-37.0); Mean Corpuscular Hgb 32.2 pg (27.0-31.0); Mean Corpuscular Volume 92.7 fL (81.0-99.0); Platelet Count 107 10^3/uL (130-400); Red Blood Cell Count 2.61 10^6/uL (4.20-5.40); Red Cell Dist. Width 18.7 % (11.5-14.5); White Blood Cell Count 12.1 10^3/uL (4.8-10.8)
[2024-08-13 06:10] LABS: Blood Urea Nitrogen 19 mg/dl (7-17); Calcium 8.1 mg/dl (8.4-10.2); Carbon Dioxide 25 mmol/L (22-30); Chloride 112 mmol/L (98-107); Estimated Creatinine Clearance 62 ml/min; Glucose 97 mg/dl (70-99); Magnesium 1.8 mg/dl (1.6-2.3); Potassium 3.6 mmol/L (3.5-5.1); Sodium 139 mmol/L (135-145); eGFR > 60.00
[2024-08-13 06:12] LABS: Vancomycin Trough 36.6 ug/ml (5-20)
[2024-08-13] MEDS: VANCOCIN IV (06:14)
[2024-08-13] MEDS: KCL 40 MEQ PO (06:32)
[2024-08-13] MEDS: MAGNESIUM SULFATE 50 IV ×2 (06:32→23:08)
[2024-08-13] MEDS: TYLENOL 1000 MG PO ×3 (06:32→21:53)
--- NOTE | 2024-08-13 07:45 | PTCARENOTE ---
Received pt from production shift supervisor RN; Pt AAOx3 and resting comfortably in bed; NSR on monitor and VSS; RIJ Cordis and PIV x2 patent; Lungs diminished; IS to 1250; positive bowel sounds and FMS in place/intact; Adair catheter draining yellow urine;
palpable pulses throughout; +2 generalized edema and +3 B/L lower extremity edema; all surgical sites C/D/I; NIH 2; pt hoyered into chair by RN.
[2024-08-13] MEDS: CALCIUM GLUCONATE 130 MG IV (08:06)
[2024-08-13] MEDS: CLARITIN 10 MG PO (08:56)
[2024-08-13] MEDS: LOPRESSOR 12.5 MG PO (08:56)
[2024-08-13] MEDS: VISBIOME 1 CAP PO (08:56)
[2024-08-13] MEDS: NEURONTIN 100 MG PO ×3 (08:56→21:53)
[2024-08-13] MEDS: FIRVANQ 125 MG PO ×2 (08:56→21:53)
--- NOTE | 2024-08-13 08:56 | W.PN.ID1 ---
Date of Service
Date of Service: August 13, 2024
Today's Communication
Continue daptomycin and Vancomycin (IV and po)
Assessment / Plan
# Sustained complicated Staphylococcus aureus (MSSA) bacteremia;
.bcx's cleared from 08/10 forward
# Catheter associated bloodstream infection from port, present on admission.
. 08/04 s/p port removed, cath tip MSSA
# [place] MV infective endocarditis cardio-embolic CVA/acute left vision loss
.08/08 DONNELL 0.9cm mobile vege attached to MV
.08/10 s/p open radical mitral valve repair debridement of annulus, patch repair, annuloplasty with 30 mm band
. 08/10 MV tissue cx: MSSA
# Acute urinary retention, peña placed 08/09/24
# Multiple antibiotic allergies including penicillin, cephalosporins, sulfa, cipro
# New onset Afib, now in sinus
# R Breast cancer on adjuvant chemotherapy
# Neutropenia (resolved) and Pancytopenia due to chemotherapy
Plan:
- Continue high dose daptomycin 1g IV q24h and IV Vancomycin (crosses blood-brain barrier).
- Follow weekly CK while on daptomycin.
- Monitor Vancomycin levels closely.
- Will eventually de-escalate abx's to Vancomycin monotherapy
- Stool C. diff Ag+, toxin neg = colonization
- Continue prophylactic Vancomycin 125mg po daily while on systemic abx.
- Diarrhea resolved
����������������������������������������������������������
Chief Complaint
-: Clinical Sepsis, Bacteremia and Other (endocarditis)
Subjective / Review of Systems
c/o deconditioned state.
No recovery of left vision yet.
Vital Signs / Physical Exam
Vital Signs
Vital Signs
Temp Pulse Resp BP Pulse Ox
97.9 F 75 20 103/72 96
08/13/24 08:00 08/13/24 08:00 08/13/24 08:00 08/13/24 06:00 08/13/24 08:00
Physical Exam
Constitutional: Comfortable
Cardiovascular: Regular Rate and S1/S2
Pulmonary: Clear (anterior lungs)
Gastrointestinal: Soft and Non Distended
Extremities: Edema
Neurological: AO x 3
Objective Data
Lab Data
Lab Results
08/13/24 05:25
08/13/24 05:25
PT 19.9 Sec (11.4-14.6) H 08/12/24 03:36
INR 1.67 08/12/24 03:36
APTT 34.3 Sec (23.4-35.0) 08/12/24 03:36
Estimated Creat Clear 62 ml/min 08/13/24 05:25
Lactic Acid Cancelled 08/03/24 12:03
Total Bilirubin 0.9 mg/dl (0.2-1.3) 08/09/24 04:34
AST 42 U/L (14-36) H 08/09/24 04:34
ALT 38 U/L (0-35) H 08/09/24 04:34
Alkaline Phosphatase 118 U/L (38-126) 08/09/24 04:34
Most recent labs reviewed.
Micro Results:
08/12/24 07:45 Blood Culture - Preliminary
Blood/Venous No Growth in 24 hours- Final report to follow
08/10/24 04:52 Blood Culture - Preliminary
Blood/Venous No Growth in 72 hours- Final report to follow
08/11/24 04:12 Blood Culture - Preliminary
Blood/Venous No Growth in 48 hours- Final report to follow
08/10/24 13:45 Tissue Culture - Final
Tissue S aureus-Methicillin Sensitive
Gram Stain - Final
08/04/24 04:17 Blood Culture - Final
Blood/Venous S aureus-Methicillin Sensitive
Gram Stain - Final
08/05/24 09:21 Blood Culture - Final
Blood/Venous S aureus-Methicillin Sensitive
Gram Stain - Final
08/04/24 04:17 Blood Culture - Final
Blood/Venous S aureus-Methicillin Sensitive
Gram Stain - Final
08/08/24 05:31 Blood Culture - Preliminary
Blood/Venous S aureus-Methicillin Sensitive
Gram Stain - Preliminary
08/09/24 04:34 Blood Culture - Preliminary
Blood/Venous Positive culture in progress
Gram Stain - Preliminary
08/07/24 09:52 Blood Culture - Preliminary
Blood/Venous S aureus-Methicillin Sensitive
Gram Stain - Preliminary
08/06/24 03:49 Blood Culture - Preliminary
Blood/Venous S aureus-Methicillin Sensitive
Gram Stain - Preliminary
08/06/24 03:30 Blood Culture - Preliminary
Blood/Venous S aureus-Methicillin Sensitive
Gram Stain - Preliminary
08/03/24 22:57 Salmonella/Shigella Culture - Final
Feces/Stool No Salmonella, Shigella, Aeromonas or Plesiomonas species
isolated.
Campylobacter Culture - Final
No Campylobacter species isolated.
Shiga Toxin Test - Final
No E. coli Shiga Toxin 1 or 2 detected.
Stool Leukocytes - Final
08/05/24 09:33 Blood Culture - Preliminary
Blood/Venous S aureus-Methicillin Sensitive
Gram Stain - Preliminary
08/04/24 08:18 Catheter Tip Culture - Final
Catheter Tip S aureus-Methicillin Sensitive
08/02/24 20:31 Blood Culture - Final
Blood/Venous S aureus-Methicillin Sensitive
Gram Stain - Final
08/03/24 21:45 Urine Culture - Final
Urine S aureus-Methicillin Sensitive
08/02/24 20:28 Urine Culture - Final
Urine S aureus-Methicillin Sensitive
08/02/24 20:27 Blood Culture - Final
Blood/Venous S aureus-Methicillin Sensitive
Gram Stain - Final
08/02/24 20:51 Blood Culture - Final
Blood/Venous S aureus-Methicillin Sensitive
Gram Stain - Final
08/03/24 22:57 C. difficile GDH Antigen & Toxins - Final
Feces/Stool C. difficile antigen positive, toxin negative.
Clostridium difficile present, but toxin not detected.
Patient may be a carrier, colonized with nontoxinogenic
strain or the level of toxin in sample is below detection
limits. This information should be used in conjunction with
the patient's clinical history.
- Final
Negative for Norovirus GI and GII.
08/02/24 20:39 Influenza Types A & B (DAHLIA) - Final
Nasal Swab Negative for Influenza A & B, NAAT
Negative results must be combined with clinical observations
and patient history.
Nucleic Acid Amplification test (NAAT)performed on the
[employer] platform.
08/08/24 Brain MRI: Several tiny foci of nonhemorrhagic acute/subacute infarcts within the bilateral centrum semiovale/periventricular regions and right cerebellum.
08/02/24 CXR: Probable infectious/inflammatory pneumonitis.
[2024-08-13] MEDS: NSS (PRESERVATIVE FREE) 10 ML IV (08:57)
[2024-08-13] MEDS: LOW STRENGTH ASPIRIN 81 MG PO (08:57)
[2024-08-13] MEDS: PROTONIX IV 40 MG IV (08:57)
[2024-08-13] MEDS: LIDOCAINE 4% PATCH TOPICAL (08:57)
[2024-08-13] MEDS: PACERONE 200 MG PO ×3 (08:57→21:53)
[2024-08-13] MEDS: BACTROBAN 2% OINTMENT 1 APPLIC NASAL ×2 (08:58→20:39)
[2024-08-13] MEDS: SENOKOT-S PO (08:58)
[2024-08-13] MEDS: UROCIT-K 40 MEQ PO (09:01)
--- NOTE | 2024-08-13 09:02 | W.PN.ONC ---
Today's Communication / Plan
-
Acute management per ICU, CT surgery
Reviewed plan to discontinue cytotoxic chemotherapy in adjuvant setting
She will follow-up in the office to review additional treatment for her breast cancer which may include radiation and or HER2 directed therapy
Impression
Impression
Medullary breast cancer, stage T2 N0 M0, HER+, HER2 3+, on adjuvant TCHP, intent of care curative
Port infection complicated by bacteremia, s/p port removal 08/04
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
Hypothyroidism
Atrial fibrillation- new to this admission
multiple cva with Left eye visual deficit -new to this admission
pancytopenia secondary to antineoplastic therapy+/-infection -neutropenia/leukopenia resolved -platelets stable >100,000, no evidence of acute DIC with normal fibrinogen
Acute postop blood loss anemia- s/p 4 pRBCs total (1 preop, 2 intraop and 1 postop)
Acute postop coagulopathy/thrombocytopenia - s/p Factor 7, 3 unit of platelets and 2 FFPs
Diarrhea improving-on prophylactic oral Vanco
Subjective/Objective
Subjective/Objective
Patient appears more lucid and appropriate than on my previous exams.
Vital Signs:
Vital Signs
Temp Pulse Resp BP Pulse Ox
97.9 F 75 20 103/72 96
08/13/24 08:00 08/13/24 08:00 08/13/24 08:00 08/13/24 06:00 08/13/24 08:00
Physical exam: Unchanged
Heart regular
No rales
Extremities symmetrical
Lab Results:
Laboratory Data
WBC 12.1 10^3/uL (4.8-10.8) H 08/13/24 05:25
Hgb 8.4 g/dL (12.0-16.0) L 08/13/24 05:25
Plt Count 107 10^3/uL (130-400) L 08/13/24 05:25
PT 19.9 Sec (11.4-14.6) H 08/12/24 03:36
INR 1.67 08/12/24 03:36
APTT 34.3 Sec (23.4-35.0) 08/12/24 03:36
eGFR > 60.00 08/13/24 05:25
--- NOTE | 2024-08-13 09:05 | PHA.VAN.FU ---
Vancomycin Assessment / Plan
- Assessment
Renal Function: Stable
WBC's are: Trending Down
In the past 24 hrs, patient has been: Afebrile
Concomitant Antimicrobials: Daptomycin
- Assessment - Therapeutic Drug Monitoring
Extrapolated Cmax (mcg/mL): 54.8
Peak level was drawn: Appropriately
Extrapolated Cmin (mcg/mL): 34.6
Trough Drawn: Appropriately
Levels were drawn: At steady state
Calculated AUC (mcg*h/mL): 1056
Calculated ke: 0.0437
Calculated half life (H): 15.9
Calculated Vd (L): 54.12
Calculated Vanc CL (ml/min): 39.44
- Dosing Plan
Adjust Regimen to: Dose by level
Dosing by Level: Hold off on dosing today
- Monitoring Plan
Random Level: 08/14 AM
- Follow Up
Pharmacy will continue to follow.
Vancomycin Follow UP
- -
Patient Age: 64
Patient Sex: Female
Vancomycin Day #: 6
Indication: Endocarditis
Requesting Provider: Dr Roy
Pertinent Antimicrobial Allergies:
Cefprozil - hives
cephalosporins - unknown
Ciprofloxacin - unknown
Penicillins - hives
Trimethoprim / sulfamethoxazole (Bactrim) - hives
Height / Weight:
Height 5 ft 5 in
Actual Weight 89.3 kg
Pertinent Past Medical History: Breast cancer ([facility])
- Vital Signs / Lab Results
Temp Pulse Resp BP Pulse Ox
97.9 F 75 20 103/72 96
08/13/24 08:00 08/13/24 08:00 08/13/24 08:00 08/13/24 06:00 08/13/24 08:00
Lab Results - Hematology
08/11/24 08/12/24 08/13/24
04:05 03:35 05:25
WBC 8.8 13.0 H 12.1 H
Lab Results - Chemistry
08/10/24 08/11/24 08/12/24
15:50 04:05 03:36
BUN 16 20 H 22 H
Creatinine 1.0 1.1 H 1.0
Estimated Creat Clear 61 55 61
08/12/24 08/13/24
21:47 05:25
BUN 21 H 19 H
Creatinine 0.9 1.0
Estimated Creat Clear 69 62
Microbiology Results
08/12/24 07:45 Blood Culture - Preliminary
Blood/Venous No Growth in 24 hours- Final report to follow
08/10/24 04:52 Blood Culture - Preliminary
Blood/Venous No Growth in 72 hours- Final report to follow
08/11/24 04:12 Blood Culture - Preliminary
Blood/Venous No Growth in 48 hours- Final report to follow
08/10/24 13:45 Tissue Culture - Final
Tissue S aureus-Methicillin Sensitive
Gram Stain - Final
08/04/24 04:17 Blood Culture - Final
Blood/Venous S aureus-Methicillin Sensitive
Gram Stain - Final
08/05/24 09:21 Blood Culture - Final
Blood/Venous S aureus-Methicillin Sensitive
Gram Stain - Final
08/04/24 04:17 Blood Culture - Final
Blood/Venous S aureus-Methicillin Sensitive
Gram Stain - Final
08/08/24 05:31 Blood Culture - Preliminary
Blood/Venous S aureus-Methicillin Sensitive
Gram Stain - Preliminary
Therapeutic Drug Monitoring
Vancomycin Peak 51.1 ug/ml (18-26) H* 08/12/24 21:47
Vancomycin Trough 36.6 ug/ml (5-20) H* 08/13/24 05:25
--- NOTE | 2024-08-13 09:57 | PTOTSP ---
Speech therapy
RELINER TT to confirm appropriateness for solid trials.
Swallowing Function: RELINER observed patient with several ice chips, thin liquids (straws), puree, mechanical soft solids, and regular consistency solids in which patient appeared to tolerate as she did not exhibit any overt clinical s/sx of aspiration
or difficulty with mastication/ manipulation. Patient denied any dysphagia complaints. Patient did, of note, demonstrate dry cough prior to PO trials which is likely correlated to her current admission/ post-surgical condition.
Given the above, recommend regular consistency solids and thin liquids.
Recommendations:
1) Regular consistency solids and thin liquids
2) Standard aspiration precautions
3) PO only when SpO2 >90% and RR< 30
Plan: RELINER will continue to follow to ensure tolerance of PO; pending hospitalization.
--- NOTE | 2024-08-13 11:58 | PTCARENOTE ---
Assessment unchanged; NSR on monitor and VSS; pt resting comfortably in chair.
[2024-08-13] MEDS: CUBICIN 20 MG IV (12:58)
[2024-08-13] MEDS: FERRLECIT 110 MG IV (13:14)
--- NOTE | 2024-08-13 13:19 | W.PN.CD ---
Today's Communication / Plan
-
AC when OK from surgical perspective
Very weak will need long-term PT
Impression / Plan
-
Card: Espinoza (for palps, AT/PSVT)
Mitral valve endocarditis, mitral regurgitation:
Sepsis due to MSSA bacteremia:
-DONNELL 08/08/2024: LVEF 60-65%, mobile vegetation attached to the base of P1/P2 segment of MV (0.9 x 0.7 x 0.7 cm), mild MR
-Status-post radical mitral valve repair [debridement of annulus, patch repair, annuloplasty with 30 mm band], open left sided maze procedure [cryoablation], LAAE [35 mm clip], Dr. Brian 08/10/24
-post-op, was on Levophed, dobutamine, and vasopressin, all of which have been stopped
-Remains in sinus rhythm on telemetry.
-Continue routine postsurgical care as directed by CT Surgery.
-Continue Daptomycin and Vancomycin
Acute/subacute bihemispheric embolic stroke
-Likely cardioembolic from MV vegetation
-Continue ASA. Will need AC for afib long-term
PAF, RVR:
- AFib is NEW this admit. Likely due to sepsis
- Anticipate at least several months of Amio- on dilt ER 240 a day and amiodarone 400 mg twice daily pre-op
- she is s/p MAZE/CLAUDIA clip as above
- Given AFib, after recovers from IE and MV surgery, plan to initiate Eliquis
- [id number] score is 5 for age, female, HTN, CVA
Hypokalemia:
- Replete as needed.
Pancytopenia
- Per oncology, etiology thought to be more likely ongoing infection then chemotherapy though both could be contributing
- Has not been thrombocytopenic in the past with chemo
Breast Ca, on chemo
HTN
Hx of PSVT (mechanism uncertain)
Subjective: Extremely weak this AM
Physical Exam
Vital Signs/Labs
Vital Signs
Temp Pulse Resp BP Pulse Ox
98 F 83 20 132/88 96
08/13/24 12:00 08/13/24 11:55 08/13/24 12:00 08/13/24 11:31 08/13/24 12:00
08/12/24 08/13/24 08/14/24
06:59 06:59 06:59
Actual Weight 195 lb 15.855 oz 196 lb 13.965 oz
08/13/24 05:25
08/13/24 05:25
PT 19.9 Sec (11.4-14.6) H 08/12/24 03:36
INR 1.67 08/12/24 03:36
APTT 34.3 Sec (23.4-35.0) 08/12/24 03:36
Magnesium 1.8 mg/dl (1.6-2.3) 08/13/24 05:25
Triglycerides 181 mg/dl (10-149) H 08/08/24 05:31
LDL Cholesterol, Calc 49 mg/dl 08/08/24 05:31
VLDL Cholesterol, Calc 36 mg/dl (0-30) H 08/08/24 05:31
HDL Cholesterol 22 mg/dl 08/08/24 05:31
Physical Exam
Constitutional: No acute distress
EENT: Anicteric
Cardiovascular: Rhythm & rate is regular
Respiratory: Respiratory effort normal
GI: Soft
Neuro/Psych: AO x 3
Data Reviewed
-
Date of Service: August 13, 2024
EKG: Tracing Personally Visualized and interpreted (sr)
Echo: Report Reviewed by me
Labs: Labs Reviewed by me
[2024-08-13] MEDS: NSS IV (13:45)
[2024-08-13] MEDS: LASIX 40 MG IV (14:43)
--- NOTE | 2024-08-13 17:04 | PTCARENOTE ---
NSR on monitor and VSS: assessment unchanged and family at bedside; pt resting comfortably in chair.
--- NOTE | 2024-08-13 20:00 | PTCARENOTE ---
Resumed care of the patient at 1900. AOx4, GO, mild R hand grasp weakness, R shoulder weakness; NIH 2 for facial droop and left visual deficit. SR on CM, pulses palpable, heart tones audible, +2 generalized edema, pitting edema of LEs. Pt on 3LNC,
lungs dim at the bases. Abd SNT, + BS, FMS in place draining greenish/brown stool. Adair catheter in place draining clear yellow urine. MSI w/ RAYMOND dressing CDI with old drainage, CT dressing CDI. RIJ Raul, PIV INT. See nursing work list for
additional details.
[2024-08-13] MEDS: LOPRESSOR PO (21:32)
[2024-08-13] MEDS: ATIVAN 0.5 MG PO (21:53)
[2024-08-13 22:22] LABS: Blood Urea Nitrogen 17 mg/dl (7-17); Calcium 7.9 mg/dl (8.4-10.2); Carbon Dioxide 26 mmol/L (22-30); Chloride 106 mmol/L (98-107); Estimated Creatinine Clearance 62 ml/min; Glucose 106 mg/dl (70-99); Magnesium 1.7 mg/dl (1.6-2.3); Potassium 3.2 mmol/L (3.5-5.1); Sodium 135 mmol/L (135-145); eGFR > 60.00
[2024-08-13] MEDS: KCL 100 IV (23:08)
[2024-08-14] VITALS (11 sets, daily range): BP systolic 90–117; BP diastolic 65–83; PULSE 92–94; O2SAT 93; BMI 32.4
--- NOTE | 2024-08-14 | PTCARENOTE ---
K, Mg, and Ca Gluc given IV per CVPA for BMP results. See MAR. Metoprolol held for hypotension. VSS at this time, afebrile.
[2024-08-14] MEDS: CALCIUM GLUCONATE 130 MG IV ×2 (00:30→23:22)
--- NOTE | 2024-08-14 04:23 | W.PN.CT ---
Today's Communication / Plan
-
Plan:
-No major issues overnight. Hemodynamically and neurologically intact
-Off all drips
-Still with diarrhea, C difficile Neg., likely from antibiotics. ID following
-MSSA bacteremia, no growth from recent blood cultures x 72 and 24hrs. ID following
-Will need PICC line in 1-2 days
-Replete electrolytes
-Monitor plts 107 today, was 107 yesterday
-Will discuss oral anticoagulation given PAF S/P MAZE, hx of Cardioembolic CVA
-OOB into chair
-PT/OT f/u
-Physiatry to evaluate for acute rehab ([facility]) placement
-Wean off of O2
-Encourage use of IS
-For likely repeat echo in 1-2 days
Assessment / Plan
-
- Mitral valve endocarditis- s/p Radical mitral valve repair [debridement of annulus, patch repair, annuloplasty with 30 mm band]; Open left sided maze procedure [cryoablation]; Left atrial appendage exclusion [35 mm clip] by Dr. Brian on 08/10/24,
pod #4
- Intraop DONNELL: LVEF was pre and post 60% with no new regional wall motion abnormalities. RV was normal size and function. After coming off cardiopulmonary bypass there was no residual leak and the mean gradient across the valve was 2. The left
atrial appendage was also opened up prior to ligation to ensure that there was no vegetations within it.
- Mitral valve endocarditis with embolic phenomenon and sepsis, moderate mitral valve insufficiency
- Multiple CVAs
- Acute metabolic encephalopathy
- Active breast cancer, on chemotherapy
- Chemotherapy induced diarrhea
- Multiple electrolyte imbalances
- Paroxysmal atrial fibrillation
- Immunocompromise
- Acute hypoxic respiratory failure
- Stage 1 obesity, BMI 31
- Acute postop blood loss anemia- s/p 4 pRBCs total (1 preop, 2 intraop and 1 postop)
- Acute postop coagulopathy/thrombocytopenia - s/p Factor 7, 3 platelets and 2 FFPs
- Acute postop atelectasis
- Acute postop hypovolemia with subsequent hypervolemia
- Acute postop diarrhea, C. difficile negative
- Acute postop hypokalemia
- Acute postop hypocalcemia
Discussed patient care with: Cardiology, Nursing, Respiratory Therapy, Pharmacy and Care Team
Subjective
-
Date of Service: August 14, 2024
Objective Data
-
PT 19.9 Sec (11.4-14.6) H 08/12/24 03:36
INR 1.67 08/12/24 03:36
APTT 34.3 Sec (23.4-35.0) 08/12/24 03:36
Vital Signs
Vital Signs
Temp Pulse Resp BP Pulse Ox
99 F 89 18 102/68 98
08/14/24 00:00 08/14/24 03:00 08/14/24 00:00 08/14/24 00:22 08/14/24 03:00
CT Intake/Output/Weight
08/13/24 08/13/24 08/14/24
06:59 18:59 06:59
Intake Total 1080 / 2505.2 90 / 610 520 / 610
Output Total 235 / 3040 1920 / 3250 1330 / 3250
Balance 845 / -534.8 -1830 / -2640 -810 / -2640
SaO2: 98
[2024-08-14 05:27] LABS: Hematocrit 27.2 % (37.0-47.0); Hemoglobin 9.3 g/dL (12.0-16.0); Ionized Calcium 1.27 mMOL/L (1.15-1.33); Mean Corp Hgb Conc. 34.2 g/dL (33.0-37.0); Mean Corpuscular Hgb 31.4 pg (27.0-31.0); Mean Corpuscular Volume 91.9 fL (81.0-99.0); Mean Platelet Volume 11.3 fL (7.4-10.4); Platelet Count 107 10^3/uL (130-400); Red Blood Cell Count 2.96 10^6/uL (4.20-5.40); Red Cell Dist. Width 17.9 % (11.5-14.5); White Blood Cell Count 10.4 10^3/uL (4.8-10.8)
[2024-08-14 05:42] LABS: Vancomycin Random 22.6 ug/ml
[2024-08-14 05:49] LABS: Blood Urea Nitrogen 16 mg/dl (7-17); Calcium 8.6 mg/dl (8.4-10.2); Carbon Dioxide 24 mmol/L (22-30); Chloride 109 mmol/L (98-107); Estimated Creatinine Clearance 69 ml/min; Glucose 91 mg/dl (70-99); Magnesium 2.1 mg/dl (1.6-2.3); Potassium 3.3 mmol/L (3.5-5.1); Sodium 136 mmol/L (135-145); eGFR > 60.00
[2024-08-14] MEDS: SYNTHROID 50 MCG PO (06:23)
[2024-08-14] MEDS: TYLENOL 1000 MG PO ×3 (06:23→22:01)
[2024-08-14] MEDS: KCL 100 IV ×2 (06:39→16:29)
--- NOTE | 2024-08-14 08:13 | PHA.VAN.FU ---
Vancomycin Assessment / Plan
- Assessment
Renal Function: SCR Decreasing
WBC's are: Trending Down
In the past 24 hrs, patient has been: Afebrile
Concomitant Antimicrobials: Daptomycin
- Assessment - Therapeutic Drug Monitoring
Random Level: R = 22.6 08/14 at 0511. Last Vanc dose was 1250mg 08/12 at 1842.
- Dosing Plan
Continue: Dose by level
Dosing by Level: Hold off on dosing today
- Monitoring Plan
Random Level: 08/15 AM
- Follow Up
Pharmacy will continue to follow.
Vancomycin Follow UP
- -
Patient Age: 64
Patient Sex: Female
Vancomycin Day #: 7
Indication: Endocarditis
Requesting Provider: Dr Roy
Pertinent Antimicrobial Allergies:
Cefprozil - hives
cephalosporins - unknown
Ciprofloxacin - unknown
Penicillins - hives
Trimethoprim / sulfamethoxazole (Bactrim) - hives
Height / Weight:
Height 5 ft 5 in
Actual Weight 88.4 kg
Pertinent Past Medical History: Breast cancer ([facility])
- Vital Signs / Lab Results
Temp Pulse Resp BP Pulse Ox
98.9 F 89 18 102/68 98
08/14/24 04:00 08/14/24 03:00 08/14/24 04:00 08/14/24 00:22 08/14/24 04:23
Lab Results - Hematology
08/12/24 08/13/24 08/14/24
03:35 05:25 05:11
WBC 13.0 H 12.1 H 10.4
Lab Results - Chemistry
08/12/24 08/12/24 08/13/24
03:36 21:47 05:25
BUN 22 H 21 H 19 H
Creatinine 1.0 0.9 1.0
Estimated Creat Clear 61 69 62
08/13/24 08/14/24
21:30 05:11
BUN 17 16
Creatinine 1.0 0.9
Estimated Creat Clear 62 69
Microbiology Results
08/12/24 07:45 Blood Culture - Preliminary
Blood/Venous No Growth in 48 hours- Final report to follow
08/10/24 04:52 Blood Culture - Preliminary
Blood/Venous No Growth in 4 days- Final report to follow
08/11/24 04:12 Blood Culture - Preliminary
Blood/Venous No Growth in 72 hours- Final report to follow
08/06/24 03:49 Blood Culture - Final
Blood/Venous S aureus-Methicillin Sensitive
Gram Stain - Final
08/06/24 03:30 Blood Culture - Final
Blood/Venous S aureus-Methicillin Sensitive
Gram Stain - Final
08/05/24 09:33 Blood Culture - Final
Blood/Venous S aureus-Methicillin Sensitive
Gram Stain - Final
08/10/24 13:45 Tissue Culture - Final
Tissue S aureus-Methicillin Sensitive
Gram Stain - Final
Therapeutic Drug Monitoring
Vancomycin Peak 51.1 ug/ml (18-26) H* 08/12/24 21:47
Vancomycin Trough 36.6 ug/ml (5-20) H* 08/13/24 05:25
Random Vancomycin 22.6 ug/ml 08/14/24 05:11
[2024-08-14 08:29] LABS: Prealbumin (Transthyretin) 10.4 mg/dl (17.6-36.0)
[2024-08-14] MEDS: IMODIUM 2 MG PO ×2 (08:34→19:55)
[2024-08-14] MEDS: FIRVANQ 125 MG PO ×2 (08:34→19:57)
[2024-08-14] MEDS: VISBIOME 1 CAP PO (08:34)
[2024-08-14] MEDS: LOW STRENGTH ASPIRIN 81 MG PO (08:35)
[2024-08-14] MEDS: CLARITIN 10 MG PO (08:35)
[2024-08-14] MEDS: NSS (PRESERVATIVE FREE) 10 ML IV (08:35)
[2024-08-14] MEDS: PACERONE 200 MG PO ×3 (08:35→22:01)
[2024-08-14] MEDS: PROTONIX IV 40 MG IV (08:35)
[2024-08-14] MEDS: NEURONTIN 100 MG PO ×3 (08:35→22:01)
[2024-08-14] MEDS: MAGNESIUM OXIDE 500 MG PO ×2 (08:35→19:54)
[2024-08-14] MEDS: LOPRESSOR 12.5 MG PO ×2 (08:39→19:55)
[2024-08-14] MEDS: LIDOCAINE 4% PATCH TOPICAL (08:41)
[2024-08-14] MEDS: IMODIUM PO (08:41)
[2024-08-14] MEDS: BACTROBAN 2% OINTMENT 1 APPLIC NASAL (08:41)
--- NOTE | 2024-08-14 08:53 | PTCARENOTE ---
Received pt from shift coordinator RN; pt AAOx3 and resting comfortably in chair; NSR on monitor and VSS; PIV x2 and RIJ Cordis patent; Lungs diminished; IS to 1200; positive bowel sounds, FMS in place; Adair catheter draining yellow urine; palpable
pulses throughout; +2 generalized edema and +3 lower extremity edema noted; all surgical sites C/D/I; see nursing documentation for further details.
[2024-08-14] MEDS: UROCIT-K PO (09:13)
[2024-08-14] MEDS: UROCIT-K 40 MEQ PO ×2 (10:14→15:26)
--- NOTE | 2024-08-14 10:32 | W.PN.ID1 ---
Date of Service
Date of Service: August 14, 2024
Today's Communication
Continue current abx's.
Assessment / Plan
# Complicated Staphylococcus aureus (MSSA) bacteremia (13 sets of Bcx's);
.bcx's cleared from 08/10 forward
# Catheter associated bloodstream infection from port, present on admission.
. 08/04 s/p port removed, cath tip MSSA
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
.08/08 DONNELL 0.9cm mobile vege attached to MV
.08/10 s/p open radical mitral valve repair debridement of annulus, patch repair, annuloplasty with 30 mm band
. 08/10 MV tissue cx: MSSA
# Acute urinary retention, peña placed 08/09/24
# Multiple antibiotic allergies including penicillin, cephalosporins, sulfa, cipro
# New onset Afib, now in sinus
# R Breast cancer on adjuvant chemotherapy
# Neutropenia (resolved) and Pancytopenia due to chemotherapy
Plan:
- Continue high dose daptomycin 1g IV q24h and IV Vancomycin (crosses blood-brain barrier).
- Check CK while on daptomycin.
- Monitor Vancomycin levels closely.
- Will eventually de-escalate abx's to Vancomycin monotherapy
- Stool C. diff Ag+, toxin neg = colonization
- Continue prophylactic Vancomycin 125mg po daily while on systemic abx.
����������������������������������������������������������
Chief Complaint
-: Clinical Sepsis, Bacteremia and Other (endocarditis)
Subjective / Review of Systems
Sitting up in chair. No new complaints.
Vital Signs / Physical Exam
Vital Signs
Vital Signs
Temp Pulse Resp BP Pulse Ox
98.6 F 96 20 100/72 96
08/14/24 08:00 08/14/24 08:39 08/14/24 08:00 08/14/24 08:39 08/14/24 09:09
Physical Exam
Constitutional: No Acute Distress
Cardiovascular: Regular Rate and S1/S2
Pulmonary: Clear
Gastrointestinal: Soft, Non Tender, Non Distended and Normal Bowel Sounds
Extremities: Negative Edema
Neurological: AO x 3
Objective Data
Lab Data
Lab Results
08/14/24 05:11
08/14/24 05:11
PT 19.9 Sec (11.4-14.6) H 08/12/24 03:36
INR 1.67 08/12/24 03:36
APTT 34.3 Sec (23.4-35.0) 08/12/24 03:36
Estimated Creat Clear 69 ml/min 08/14/24 05:11
Lactic Acid Cancelled 08/03/24 12:03
Total Bilirubin 0.9 mg/dl (0.2-1.3) 08/09/24 04:34
AST 42 U/L (14-36) H 08/09/24 04:34
ALT 38 U/L (0-35) H 08/09/24 04:34
Alkaline Phosphatase 118 U/L (38-126) 08/09/24 04:34
Most recent labs reviewed.
Micro Results:
08/12/24 07:45 Blood Culture - Preliminary
Blood/Venous No Growth in 48 hours- Final report to follow
08/10/24 04:52 Blood Culture - Preliminary
Blood/Venous No Growth in 4 days- Final report to follow
08/11/24 04:12 Blood Culture - Preliminary
Blood/Venous No Growth in 72 hours- Final report to follow
08/06/24 03:49 Blood Culture - Final
Blood/Venous S aureus-Methicillin Sensitive
Gram Stain - Final
08/06/24 03:30 Blood Culture - Final
Blood/Venous S aureus-Methicillin Sensitive
Gram Stain - Final
08/05/24 09:33 Blood Culture - Final
Blood/Venous S aureus-Methicillin Sensitive
Gram Stain - Final
08/10/24 13:45 Tissue Culture - Final
Tissue S aureus-Methicillin Sensitive
Gram Stain - Final
08/04/24 04:17 Blood Culture - Final
Blood/Venous S aureus-Methicillin Sensitive
Gram Stain - Final
08/05/24 09:21 Blood Culture - Final
Blood/Venous S aureus-Methicillin Sensitive
Gram Stain - Final
08/04/24 04:17 Blood Culture - Final
Blood/Venous S aureus-Methicillin Sensitive
Gram Stain - Final
08/08/24 05:31 Blood Culture - Preliminary
Blood/Venous S aureus-Methicillin Sensitive
Gram Stain - Preliminary
08/09/24 04:34 Blood Culture - Preliminary
Blood/Venous Positive culture in progress
Gram Stain - Preliminary
08/07/24 09:52 Blood Culture - Preliminary
Blood/Venous S aureus-Methicillin Sensitive
Gram Stain - Preliminary
08/03/24 22:57 Salmonella/Shigella Culture - Final
Feces/Stool No Salmonella, Shigella, Aeromonas or Plesiomonas species
isolated.
Campylobacter Culture - Final
No Campylobacter species isolated.
Shiga Toxin Test - Final
No E. coli Shiga Toxin 1 or 2 detected.
Stool Leukocytes - Final
08/04/24 08:18 Catheter Tip Culture - Final
Catheter Tip S aureus-Methicillin Sensitive
08/02/24 20:31 Blood Culture - Final
Blood/Venous S aureus-Methicillin Sensitive
Gram Stain - Final
08/03/24 21:45 Urine Culture - Final
Urine S aureus-Methicillin Sensitive
08/02/24 20:28 Urine Culture - Final
Urine S aureus-Methicillin Sensitive
08/02/24 20:27 Blood Culture - Final
Blood/Venous S aureus-Methicillin Sensitive
Gram Stain - Final
08/02/24 20:51 Blood Culture - Final
Blood/Venous S aureus-Methicillin Sensitive
Gram Stain - Final
08/03/24 22:57 C. difficile GDH Antigen & Toxins - Final
Feces/Stool C. difficile antigen positive, toxin negative.
Clostridium difficile present, but toxin not detected.
Patient may be a carrier, colonized with nontoxinogenic
strain or the level of toxin in sample is below detection
limits. This information should be used in conjunction with
the patient's clinical history.
- Final
Negative for Norovirus GI and GII.
08/02/24 20:39 Influenza Types A & B (DAHLIA) - Final
Nasal Swab Negative for Influenza A & B, NAAT
Negative results must be combined with clinical observations
and patient history.
Nucleic Acid Amplification test (NAAT)performed on the
Seam[employer] platform.
08/08/24 Brain MRI: Several tiny foci of nonhemorrhagic acute/subacute infarcts within the bilateral centrum semiovale/periventricular regions and right cerebellum.
08/02/24 CXR: Probable infectious/inflammatory pneumonitis.
--- NOTE | 2024-08-14 12:24 | PTCARENOTE ---
Assessment unchanged; pt resting comfortably in chair with at bedside; NSR on monitor and VSS.
--- NOTE | 2024-08-14 13:18 | W.PN.CD ---
Today's Communication / Plan
-
AC when OK from surgical perspective
Very weak
Impression / Plan
-
Card: Espinoza (for palps, AT/PSVT)
Mitral valve endocarditis, mitral regurgitation:
Sepsis due to MSSA bacteremia:
-DONNELL 08/08/2024: LVEF 60-65%, mobile vegetation attached to the base of P1/P2 segment of MV (0.9 x 0.7 x 0.7 cm), mild MR
-Status-post radical mitral valve repair [debridement of annulus, patch repair, annuloplasty with 30 mm band], open left sided maze procedure [cryoablation], LAAE [35 mm clip], Dr. Brian 08/10/24
-post-op, was on Levophed, dobutamine, and vasopressin, all of which have been stopped
-Remains in sinus rhythm on telemetry.
-Continue routine postsurgical care as directed by CT Surgery.
-Continue Daptomycin and Vancomycin
Acute/subacute bihemispheric embolic stroke
-Likely cardioembolic from MV vegetation
-Continue ASA. Will need AC for afib long-term
PAF, RVR:
- AFib is NEW this admit. Likely due to sepsis
- Anticipate at least several months of Amio- on dilt ER 240 a day and amiodarone 400 mg twice daily pre-op
- she is s/p MAZE/CLAUDIA clip as above
- Given AFib, after recovers from IE and MV surgery, plan to initiate Eliquis
- [id number] score is 5 for age, female, HTN, CVA
Hypokalemia:
- Replete as needed.
Pancytopenia
- Per oncology, etiology thought to be more likely ongoing infection then chemotherapy though both could be contributing
- Has not been thrombocytopenic in the past with chemo
Breast Ca, on chemo
HTN
Hx of PSVT (mechanism uncertain)
Subjective: Feeling lousy
Physical Exam
Vital Signs/Labs
Vital Signs
Temp Pulse Resp BP Pulse Ox
98.6 F 86 20 97/65 94
08/14/24 12:23 08/14/24 12:19 08/14/24 12:23 08/14/24 12:19 08/14/24 12:23
08/13/24 08/14/24 08/15/24
06:59 06:59 06:59
Actual Weight 196 lb 13.965 oz 194 lb 14.218 oz
08/14/24 05:11
08/14/24 05:11
PT 19.9 Sec (11.4-14.6) H 08/12/24 03:36
INR 1.67 08/12/24 03:36
APTT 34.3 Sec (23.4-35.0) 08/12/24 03:36
Magnesium 2.1 mg/dl (1.6-2.3) 08/14/24 05:11
Triglycerides 181 mg/dl (10-149) H 08/08/24 05:31
LDL Cholesterol, Calc 49 mg/dl 08/08/24 05:31
VLDL Cholesterol, Calc 36 mg/dl (0-30) H 08/08/24 05:31
HDL Cholesterol 22 mg/dl 08/08/24 05:31
Physical Exam
Constitutional: No acute distress and Comfortable
EENT: Anicteric
Cardiovascular: Rhythm & rate is regular and Pedal edema present
Respiratory: Respiratory effort normal and Lungs clear to auscul.
GI: Soft
Neuro/Psych: Alert and Oriented
Data Reviewed
-
Date of Service: August 14, 2024
EKG: Tracing Personally Visualized and interpreted (sr)
Echo: Report Reviewed by me
Labs: Labs Reviewed by me
[2024-08-14] MEDS: CUBICIN 20 MG IV (13:44)
[2024-08-14] MEDS: LASIX 40 MG IV (15:25)
[2024-08-14 16:03] LABS: Blood Urea Nitrogen 16 mg/dl (7-17); Calcium 7.8 mg/dl (8.4-10.2); Carbon Dioxide 23 mmol/L (22-30); Chloride 107 mmol/L (98-107); Estimated Creatinine Clearance 77 ml/min; Glucose 101 mg/dl (70-99); Potassium 3.5 mmol/L (3.5-5.1); Sodium 134 mmol/L (135-145); eGFR > 60.00
--- NOTE | 2024-08-14 17:14 | PTCARENOTE ---
Assessment unchanged; NSR on monitor and VSS; pt hoyered back to bed; family at bedside.
[2024-08-14 21:28] LABS: Ionized Calcium 1.13 mMOL/L (1.15-1.33)
--- NOTE | 2024-08-14 21:51 | PTCARENOTE ---
Pt received at 19:00, family at bedside. Pt drowsy but easily arousable to verbal stimuli. Ox3, withdrawn. NIH = 2, for slight L facial droop and L visual loss. RA diminished at the bases. NSR 70s-80s. Pulses palpable. +2 generalized edema, B/L LE
+3. FMS in place, +flatus, liquid brown stool. Adair draining clear yellow urine. Midline chest RAYMOND dressing with previously marked shadowing, shadowing unchanged. Safe environment maintained, call lopez within reach, remains at bedside.
[2024-08-14 21:57] LABS: Blood Urea Nitrogen 15 mg/dl (7-17); Calcium 7.7 mg/dl (8.4-10.2); Carbon Dioxide 25 mmol/L (22-30); Chloride 104 mmol/L (98-107); Estimated Creatinine Clearance 68 ml/min; Glucose 101 mg/dl (70-99); Magnesium 1.6 mg/dl (1.6-2.3); Potassium 4.3 mmol/L (3.5-5.1); Sodium 133 mmol/L (135-145); eGFR > 60.00
[2024-08-14] MEDS: ATIVAN 0.5 MG PO (22:01)
--- NOTE | 2024-08-14 22:22 | PTCARENOTE ---
21:00 labs resulted, K = 4.3 after K rider, mg = 1.6, Ca = 7.7, ical = 1.13. CV-PA made aware.
[2024-08-14] MEDS: NSS 500 IV (23:22)
[2024-08-14] MEDS: MAGNESIUM SULFATE 100 IV (23:23)
[2024-08-15] VITALS (14 sets, daily range): BP systolic 92–111; BP diastolic 63–79; PULSE 79; O2SAT 94–96; BMI 31.9
--- NOTE | 2024-08-15 | PTCARENOTE ---
Patient received from RN @ 1040. AOx3 but drowsy. See worklist for NIH stroke scale assessment. Patient lying in bed w/ call lopez in reach. NSR BP 90/68 HR 81 Heart sounds audible.. +2 bilateral edema noted on hands. +3 lower feet edema
noted. Radial and pedal pulses present. POX 90 RA. Lungs diminished bilaterally. IS 1250. Bowel sounds present. Fecal management system intact. Adair draining clear yellow urine. Sternal dressing dry and intact w/ scant old drainage noted.
CT dressing dry and intact. RIJ cordis and 2 left hand PIV patent and intact.
[2024-08-15 03:36] LABS: Ionized Calcium 1.26 mMOL/L (1.15-1.33)
[2024-08-15 03:56] LABS: Hematocrit 25.2 % (37.0-47.0); Hemoglobin 8.6 g/dL (12.0-16.0); Mean Corp Hgb Conc. 34.1 g/dL (33.0-37.0); Mean Corpuscular Hgb 31.7 pg (27.0-31.0); Mean Platelet Volume 11.3 fL (7.4-10.4); Platelet Count 104 10^3/uL (130-400); Red Blood Cell Count 2.71 10^6/uL (4.20-5.40); Red Cell Dist. Width 17.7 % (11.5-14.5); White Blood Cell Count 9.4 10^3/uL (4.8-10.8)
--- NOTE | 2024-08-15 04:10 | PTCARENOTE ---
Patient reassessed. NSR on monitor. BP 107/66 HR 77 POX 96% 2L NC. Labs drawn.
[2024-08-15 04:11] LABS: Blood Urea Nitrogen 15 mg/dl (7-17); Calcium 8.3 mg/dl (8.4-10.2); Carbon Dioxide 27 mmol/L (22-30); Chloride 105 mmol/L (98-107); Creatine Phosphokinase 103 U/L (30-135); Estimated Creatinine Clearance 68 ml/min; Glucose 94 mg/dl (70-99); Potassium 3.9 mmol/L (3.5-5.1); Sodium 133 mmol/L (135-145); eGFR > 60.00
[2024-08-15 04:22] LABS: Vancomycin Random 15.1 ug/ml
--- NOTE | 2024-08-15 04:35 | PTCARENOTE ---
Patient reassessed. NSR w/ first degree heart block. BP 173/72 HR 63 POX 99% 2L NC. Labs drawn. CT PA Ed notified about BP.
--- NOTE | 2024-08-15 05:00 | W.PN.CT ---
Today's Communication / Plan
-
Plan:
-No major issues overnight. Hemodynamically and neurologically intact
-Off all drips
-Diarrhea is subsiding, C difficile Neg., likely from antibiotics (Vancomycin/Daptomycin). ID following
-MSSA bacteremia, no growth from recent blood cultures x 96 and 48hrs. ID following
-Will need PICC line in 1-2 days
-Replete electrolytes
-Monitor plts 104 today, was 107 yesterday
-Will discuss oral anticoagulation given PAF S/P MAZE, hx of Cardioembolic CVA
-OOB into chair
-PT/OT f/u
-Physiatry to evaluate for acute rehab ([place]) placement
-Wean off of O2
-Encourage use of IS
-Encourage nutritional intake, prealbumin 10.4 yesterday
-For likely repeat echo in 1-2 days
Assessment / Plan
-
- Mitral valve endocarditis- s/p Radical mitral valve repair [debridement of annulus, patch repair, annuloplasty with 30 mm band]; Open left sided maze procedure [cryoablation]; Left atrial appendage exclusion [35 mm clip] by Dr. Brian on 08/10/24,
pod #5
- Intraop DONNELL: LVEF was pre and post 60% with no new regional wall motion abnormalities. RV was normal size and function. After coming off cardiopulmonary bypass there was no residual leak and the mean gradient across the valve was 2. The left
atrial appendage was also opened up prior to ligation to ensure that there was no vegetations within it.
- Mitral valve endocarditis with embolic phenomenon and sepsis, moderate mitral valve insufficiency
- Multiple CVAs
- Acute metabolic encephalopathy
- Active breast cancer, on chemotherapy
- Chemotherapy induced diarrhea
- Multiple electrolyte imbalances
- Paroxysmal atrial fibrillation
- Immunocompromise
- Acute hypoxic respiratory failure
- Stage 1 obesity, BMI 31
- Acute postop blood loss anemia- s/p 4 pRBCs total (1 preop, 2 intraop and 1 postop)
- Acute postop coagulopathy/thrombocytopenia - s/p Factor 7, 3 platelets and 2 FFPs
- Acute postop atelectasis
- Acute postop hypovolemia with subsequent hypervolemia
- Acute postop diarrhea, C. difficile negative
- Acute postop hypokalemia
- Acute postop hypocalcemia
- Acute postop hypomagnesemia
Discussed patient care with: Cardiology, Nursing, Respiratory Therapy, Pharmacy and Care Team
Subjective
-
Date of Service: August 15, 2024
Pt c/o mild incisional and feeling weak, diarrhea is resolving
Objective Data
-
Lab Results
08/15/24 03:26
08/15/24 03:26
PT 19.9 Sec (11.4-14.6) H 08/12/24 03:36
INR 1.67 08/12/24 03:36
APTT 34.3 Sec (23.4-35.0) 08/12/24 03:36
Vital Signs
Vital Signs
Temp Pulse Resp BP Pulse Ox
98.9 F 77 18 107/66 95
08/15/24 04:06 08/15/24 04:04 08/15/24 04:06 08/15/24 04:04 08/15/24 04:06
CT Intake/Output/Weight
08/14/24 08/14/24 08/15/24
06:59 18:59 06:59
Intake Total 740 / 830 220 / 470 250 / 470
Output Total 1450 / 3370 2325 / 3075 750 / 3075
Balance -710 / -2540 -2105 / -2605 -500 / -2605
SaO2: 95 (2L)
Physical Exam
-
General: Awake, Oriented and AOx3
Cardiovascular: Regular rate & rhythm, No Murmurs, No Rub and No Gallop
Respiratory: Decreased Breath Sounds (at bases, otherwise clear)
Sternum: Stable
Incision: Clean, Dry, Intact and Dressing Intact
Extremities: Edema +1
Data Reviewed
-
Lab Results: Results Reviewed
Medications: Active Meds Reviewed
Chest X-Ray: Report Reviewed and Image Reviewed
ECG: Report Reviewed and Image Reviewed
[2024-08-15 06:09] LABS: Prealbumin (Transthyretin) 10.5 mg/dl (17.6-36.0)
[2024-08-15] MEDS: SYNTHROID 50 MCG PO (06:56)
[2024-08-15] MEDS: TYLENOL 1000 MG PO ×3 (06:56→22:04)
[2024-08-15] MEDS: KCL 40 MEQ PO (06:56)
--- NOTE | 2024-08-15 07:56 | PHA.VAN.FU ---
Vancomycin Assessment / Plan
- Assessment
Renal Function: Stable
WBC's are: WNL
In the past 24 hrs, patient has been: Afebrile
Concomitant Antimicrobials: daptomycin 1000 mg iv daily
- Assessment - Therapeutic Drug Monitoring
Random Level: 15.1 - 08/15/24 03:26 - last vanc dose was 08/10/24 16:25
Calculated half life (H): 2 separate calculated T 1/2 based on last two random level - 38.2 and 34.2h
- Dosing Plan
Continue: dose by random level
Dosing by Level: Re-dose today (1000 mg x 1 dose today)
- Monitoring Plan
Random Level: repeat random level AM 08/16
- Follow Up
Pharmacy will continue to follow.
Vancomycin Follow UP
- -
Patient Age: 64
Patient Sex: Female
Vancomycin Day #: 8
Indication: Endocarditis
Requesting Provider: Dr Roy
Pertinent Antimicrobial Allergies:
Cefprozil - hives
cephalosporins - unknown
Ciprofloxacin - unknown
Penicillins - hives
Trimethoprim / sulfamethoxazole (Bactrim) - hives
Height / Weight:
Height 5 ft 5 in
Actual Weight 87 kg
Pertinent Past Medical History: Breast cancer ([place])
- Vital Signs / Lab Results
Temp Pulse Resp BP Pulse Ox
98.9 F 77 18 107/66 95
08/15/24 04:06 08/15/24 04:04 08/15/24 04:06 08/15/24 04:04 08/15/24 05:09
Lab Results - Hematology
08/13/24 08/14/24 08/15/24
05:25 05:11 03:26
WBC 12.1 H 10.4 9.4
Lab Results - Chemistry
08/12/24 08/13/24 08/13/24
21:47 05:25 21:30
BUN 21 H 19 H 17
Creatinine 0.9 1.0 1.0
Estimated Creat Clear 69 62 62
08/14/24 08/14/24 08/14/24
05:11 15:25 21:15
BUN 16 16 15
Creatinine 0.9 0.8 0.9
Estimated Creat Clear 69 77 68
08/15/24
03:26
BUN 15
Creatinine 0.9
Estimated Creat Clear 68
Microbiology Results
08/12/24 07:45 Blood Culture - Preliminary
Blood/Venous No Growth in 72 hours- Final report to follow
08/10/24 04:52 Blood Culture - Final
Blood/Venous No Growth - Final Report
08/11/24 04:12 Blood Culture - Preliminary
Blood/Venous No Growth in 4 days- Final report to follow
08/08/24 05:31 Blood Culture - Final
Blood/Venous S aureus-Methicillin Sensitive
Gram Stain - Final
08/07/24 09:52 Blood Culture - Final
Blood/Venous S aureus-Methicillin Sensitive
Gram Stain - Final
08/06/24 03:49 Blood Culture - Final
Blood/Venous S aureus-Methicillin Sensitive
Gram Stain - Final
08/06/24 03:30 Blood Culture - Final
Blood/Venous S aureus-Methicillin Sensitive
Gram Stain - Final
08/05/24 09:33 Blood Culture - Final
Blood/Venous S aureus-Methicillin Sensitive
Gram Stain - Final
Therapeutic Drug Monitoring
Vancomycin Peak 51.1 ug/ml (18-26) H* 08/12/24 21:47
Vancomycin Trough 36.6 ug/ml (5-20) H* 08/13/24 05:25
Random Vancomycin 15.1 ug/ml 08/15/24 03:26
--- NOTE | 2024-08-15 09:00 | PTCARENOTE ---
Resumed care of patient. Walking rounds completed with previous RN. Pt denies pain, shortness of breath, and nausea. NIH 2. Left facial droop, left vision deficit. Right arm range of motion limited, but strength intact. NSR on tele with rates in the
80s. BP 110/72. Heart tones audible. Bilateral radial and DP pulses palpable. Bilateral lower extremity edema +3. POX 96% on 2L NC, titrated to RA, POX 93%. Lungs diminished in the bases. IS encouraged-1000mL achieved. No cough noted. Abdomen soft,
round, nontender. +BS. FMS in place draining liquid brown stool. Adair catheter intact draining adequate amounts of clear yellow urine. Sternal incision with RAYMOND dressing intact with old drainage. 2 old chest tube sites open, not approximated,
dressing d/c. Right IJ cordis intact. Left hand 20g and 22g PIVs intact. See MAR for medication administration. See worklist for complete nursing assessment. Plan of care reviewed and patient in agreement.
[2024-08-15] MEDS: LOPRESSOR 12.5 MG PO ×2 (09:24→20:07)
[2024-08-15] MEDS: NEURONTIN 100 MG PO ×3 (09:24→21:41)
[2024-08-15] MEDS: PACERONE 200 MG PO ×3 (09:24→21:41)
[2024-08-15] MEDS: VISBIOME 1 CAP PO (09:24)
[2024-08-15] MEDS: IMODIUM 2 MG PO ×2 (09:24→20:09)
[2024-08-15] MEDS: CLARITIN 10 MG PO (09:24)
[2024-08-15] MEDS: UROCIT-K 40 MEQ PO ×2 (09:24→16:28)
[2024-08-15] MEDS: LOW STRENGTH ASPIRIN 81 MG PO (09:24)
[2024-08-15] MEDS: FIRVANQ 125 MG PO ×2 (09:25→20:09)
[2024-08-15] MEDS: LIDOCAINE 4% PATCH TOPICAL (09:25)
[2024-08-15] MEDS: NSS (PRESERVATIVE FREE) IV (09:39)
[2024-08-15] MEDS: PROTONIX IV IV (09:39)
[2024-08-15] MEDS: PROTONIX 40 MG PO (09:42)
[2024-08-15] MEDS: NSS IV (10:39)
[2024-08-15] MEDS: VANCOCIN 200 IV (11:05)
--- NOTE | 2024-08-15 12:04 | CM ---
Reviewed chart.. Met with Mrs. Dsouza to review discharge plans. She states she is feeling very weak. We reviewed rehab. and she would like to explore [facility]. Telephone call to [facility]. liaison to review. Will need to pre-cert for acute
rehab. with her insurance. She states prior to admission she resides with her spouse in a two story with five steps to enter. She states she has a first floor set-up. She states prior to admission she was independent with ambulation and adls.
She has a prescription plan and uses [facility]. Will continue to follow her her progress. Medical work-up in progress. The discharge plan is to go to some level of rehab. when medically stable, hopefully [facility]. Awaiting for PM&R.
--- NOTE | 2024-08-15 12:31 | W.PN.CD ---
Today's Communication / Plan
-
cont. routine post op care
diuresis
Impression / Plan
-
Card: Espinoza (for palps, AT/PSVT)
Mitral valve endocarditis, mitral regurgitation:
Sepsis due to MSSA bacteremia:
-DONNELL 08/08/2024: LVEF 60-65%, mobile vegetation attached to the base of P1/P2 segment of MV (0.9 x 0.7 x 0.7 cm), mild MR
-Status-post radical mitral valve repair [debridement of annulus, patch repair, annuloplasty with 30 mm band], open left sided maze procedure [cryoablation], LAAE [35 mm clip], Dr. Brian 08/10/24
-post-op, was on Levophed, dobutamine, and vasopressin, all of which have been stopped
-Remains in sinus rhythm on telemetry.
-Continue routine postsurgical care as directed by CT Surgery.
-Continue Daptomycin and Vancomycin
-could likely use more diuresis
Acute/subacute bihemispheric embolic stroke
-Likely cardioembolic from MV vegetation
-Continue ASA. Will need AC for afib long-term
PAF, RVR:
- AFib is NEW this admit. Likely due to sepsis
- Anticipate at least several months of Amio- on dilt ER 240 a day and amiodarone 400 mg twice daily pre-op
- she is s/p MAZE/CLAUDIA clip as above
- Given AFib, after recovers from IE and MV surgery, plan to initiate Eliquis
- [id number] score is 5 for age, female, HTN, CVA
Hypokalemia:
- Replete as needed.
Pancytopenia
- Per oncology, etiology thought to be more likely ongoing infection then chemotherapy though both could be contributing
- Has not been thrombocytopenic in the past with chemo
Breast Ca, on chemo
HTN
Hx of PSVT (mechanism uncertain)
Subjective: Feeling improved
Physical Exam
Vital Signs/Labs
Vital Signs
Temp Pulse Resp BP Pulse Ox
36.6 C 82 16 110/72 97
08/15/24 08:00 08/15/24 10:00 08/15/24 08:00 08/15/24 09:15 08/15/24 09:15
08/14/24 08/15/24 08/16/24
06:59 06:59 06:59
Actual Weight 88.4 kg 87 kg
08/15/24 03:26
08/15/24 03:26
PT 19.9 Sec (11.4-14.6) H 08/12/24 03:36
INR 1.67 08/12/24 03:36
APTT 34.3 Sec (23.4-35.0) 08/12/24 03:36
Magnesium 3.0 mg/dl (1.6-2.3) H 08/15/24 03:26
Triglycerides 181 mg/dl (10-149) H 08/08/24 05:31
LDL Cholesterol, Calc 49 mg/dl 08/08/24 05:31
VLDL Cholesterol, Calc 36 mg/dl (0-30) H 08/08/24 05:31
HDL Cholesterol 22 mg/dl 08/08/24 05:31
Physical Exam
Constitutional: No acute distress
Cardiovascular: Rhythm & rate is regular
Respiratory: Respiratory effort normal
Neuro/Psych: AO x 3
Data Reviewed
-
Date of Service: August 15, 2024
Medical Decision Making: Reviewed Test Results
X-Ray/CT/US/MRI/NUC/PET: Image Personally Visualized and interpreted
Labs: Labs Reviewed by me
--- NOTE | 2024-08-15 12:45 | PTCARENOTE ---
Pt reassessed. Family at bedside. NSR with rates in the 70s. BP 111/78. POX 96% on 2L, requested for comfort. Surgical sites stable. Adair draining adequate clear yellow urine. No c/o pain.
[2024-08-15] MEDS: CUBICIN 20 MG IV (12:52)
--- NOTE | 2024-08-15 16:45 | PTCARENOTE ---
Pt reassessed. Pt resting in bed. NSR with rates in the 70s-80s. BP 96/65. POX 98% on 2L, pt requested it to remain on for comfort. Surgical sites stable. UO adequate. No acute changes.
--- NOTE | 2024-08-15 17:58 | PTCARENOTE ---
Right IJ cordis d/c per orders. Hemostasis achieved. pt tolerated.
--- NOTE | 2024-08-15 18:38 | VATNOTE ---
R PICC line redirected x1 with stiff guidewire. Repeat CXR ordered. Will continue to monitor.
--- NOTE | 2024-08-15 20:00 | PTCARENOTE ---
assumed care of patient at @1900. Alert and oriented X 4 , denies pain. [address] scan completed. VSS. on 2 L NC, lung sounds diminished at bases. NSR on monitor, +2 edema in lower extremities. Bowel sounds present, FMS in place, peña with
clear yellow urine. PICC line placed today and cleared for use.
[2024-08-15] MEDS: ATIVAN 0.5 MG PO (21:41)
[2024-08-16] VITALS (13 sets, daily range): BP systolic 87–155; BP diastolic 56–88; PULSE 76; O2SAT 97; BMI 33.0
--- NOTE | 2024-08-16 00:25 | PTCARENOTE ---
Patient resting , Vital signs stable, NSR
[2024-08-16 03:54] LABS: Hematocrit 24.3 % (37.0-47.0); Hemoglobin 8.3 g/dL (12.0-16.0); Mean Corp Hgb Conc. 34.2 g/dL (33.0-37.0); Mean Corpuscular Hgb 31.7 pg (27.0-31.0); Mean Corpuscular Volume 92.7 fL (81.0-99.0); Mean Platelet Volume 11.3 fL (7.4-10.4); Platelet Count 100 10^3/uL (130-400); Red Blood Cell Count 2.62 10^6/uL (4.20-5.40); White Blood Cell Count 8.4 10^3/uL (4.8-10.8)
[2024-08-16 04:13] LABS: Blood Urea Nitrogen 17 mg/dl (7-17); Calcium 7.7 mg/dl (8.4-10.2); Carbon Dioxide 30 mmol/L (22-30); Chloride 102 mmol/L (98-107); Estimated Creatinine Clearance 76 ml/min; Glucose 88 mg/dl (70-99); Potassium 4.7 mmol/L (3.5-5.1); Sodium 129 mmol/L (135-145); eGFR > 60.00
[2024-08-16 04:18] LABS: Vancomycin Random 15.8 ug/ml
[2024-08-16 04:56] LABS: Magnesium 1.8 mg/dl (1.6-2.3)
[2024-08-16] MEDS: FLEXBUMIN 50 IV (05:16)
[2024-08-16] MEDS: SYNTHROID 50 MCG PO (05:18)
[2024-08-16] MEDS: TYLENOL 1000 MG PO ×3 (05:18→22:10)
[2024-08-16] MEDS: CALCIUM GLUCONATE 130 MG IV (05:25)
--- NOTE | 2024-08-16 05:30 | W.PN.CT ---
Today's Communication / Plan
-
Plan:
-No major issues overnight. Hemodynamically and neurologically intact
-Off all drips
-Diarrhea is subsiding, C difficile Neg., likely from antibiotics (Vancomycin/Daptomycin). ID following
-MSSA bacteremia, repeat blood cultures since 08/11 are without growth thus far. ID following
-PICC line placed yesterday
-Replete electrolytes
-Monitor plts 100 today, was 104 yesterday
-H/H 8.3/24.3 on
-Repeat TTE obtained yesterday 08/15 showed well seated MV repair, however mobile echo density is seen on the posterior (View 36, 54, 55) and possible anterior mitral leaflet
(View 45). No significant stenosis or regurgitation
-Head CT obtained yesterday 08/15 was negative for bleed
-Will start Eliquis for PAF S/P MAZE, hx of Cardioembolic CVA, echo density seen on repeat TTE
-OOB into chair
-PT/OT f/u
-Physiatry to evaluate for acute rehab ([place]) placement
-Wean off of O2
-Encourage use of IS
-Encourage nutritional intake, prealbumin 10.4 yesterday
-Eventual rehab placement
Assessment / Plan
-
- Mitral valve endocarditis- s/p Radical mitral valve repair [debridement of annulus, patch repair, annuloplasty with 30 mm band]; Open left sided maze procedure [cryoablation]; Left atrial appendage exclusion [35 mm clip] by Dr. Brian on 08/10/24,
pod #5
- Intraop DONNELL: LVEF was pre and post 60% with no new regional wall motion abnormalities. RV was normal size and function. After coming off cardiopulmonary bypass there was no residual leak and the mean gradient across the valve was 2. The left
atrial appendage was also opened up prior to ligation to ensure that there was no vegetations within it.
- Mitral valve endocarditis with embolic phenomenon and sepsis, moderate mitral valve insufficiency
- Multiple CVAs
- Acute metabolic encephalopathy
- Active breast cancer, on chemotherapy
- Chemotherapy induced diarrhea
- Multiple electrolyte imbalances
- Paroxysmal atrial fibrillation
- Immunocompromise
- Acute hypoxic respiratory failure
- Stage 1 obesity, BMI 31
- Acute postop blood loss anemia- s/p 4 pRBCs total (1 preop, 2 intraop and 1 postop)
- Acute postop coagulopathy/thrombocytopenia - s/p Factor 7, 3 platelets and 2 FFPs
- Acute postop atelectasis
- Acute postop hypovolemia with subsequent hypervolemia
- Acute postop diarrhea, C. difficile negative
- Acute postop hypokalemia
- Acute postop hypocalcemia
- Acute postop hypomagnesemia
Discussed patient care with: Cardiology, Nursing, Respiratory Therapy, Pharmacy and Care Team
Subjective
-
Date of Service: August 16, 2024
Pt denies incisional pain, c/o of feeling weak and decreased appetite
Objective Data
-
Lab Results
08/16/24 03:21
08/16/24 03:21
PT 19.9 Sec (11.4-14.6) H 08/12/24 03:36
INR 1.67 08/12/24 03:36
APTT 34.3 Sec (23.4-35.0) 08/12/24 03:36
Vital Signs
Vital Signs
Temp Pulse Resp BP Pulse Ox
98.4 F 67 18 155/65 98
08/15/24 21:59 08/16/24 01:23 08/15/24 21:59 08/16/24 01:23 08/15/24 21:59
CT Intake/Output/Weight
08/15/24 08/15/24 08/16/24
06:59 18:59 06:59
Intake Total 250 / 470 570 / 760 190 / 760
Output Total 750 / 3075 675 / 1035 360 / 1035
Balance -500 / -2605 -105 / -275 -170 / -275
SaO2: 98 (2L)
Physical Exam
-
General: Awake, Oriented and AOx3
Cardiovascular: Regular rate & rhythm, No Murmurs, No Rub and No Gallop
Respiratory: Decreased Breath Sounds (at bases)
Sternum: Stable
Incision: Clean, Dry, Intact and Dressing Intact
Extremities: Edema +2
Data Reviewed
-
Lab Results: Results Reviewed
Medications: Active Meds Reviewed
Chest X-Ray: Report Reviewed and Image Reviewed
ECG: Report Reviewed and Image Reviewed
--- NOTE | 2024-08-16 05:41 | PTCARENOTE ---
Labs drawn, cultures redawn. Calcium Gluconate replaced, albumin given,
--- NOTE | 2024-08-16 08:45 | PTCARENOTE ---
Resumed care of patient. Walking rounds completed with previous RN. Pt assessed while she was lying in bed. Pt alert and oriented x4. Pt denies pain, nausea, and shortness of breath. NIH 2. Facial droop & left vision loss. Equal strength throughout,
right shoulder range of motion limited. 2-3 assist to turn in bed. NSR on tele with rates in the 70s. BP 117/88. Bilateral radial and DP pulses palpable. +2 lower extremity edema. POX 98% on 2L NC, per patient request, kept on for comfort. Lungs
diminished in the bases. IS encouraged-1000mL achieved. No cough noted. Abdomen soft, round, obese, nontender. +BS. FMS intact draining thick brown stool. Adair catheter draining adequate amounts of clear yellow urine. Sternal incision covered with
RAYMOND dressing with old drainage, green flashing light. 2 old chest tubes approximated, [employer]AL. Right upper arm PICC intact. PIV x2 intact. See MAR for medication administration. See worklist for complete nursing assessment. Plan of care reviewed and pt
in agreement.
[2024-08-16] MEDS: NEURONTIN 100 MG PO ×3 (08:54→22:10)
[2024-08-16] MEDS: ELIQUIS 5 MG PO ×2 (08:54→20:45)
[2024-08-16] MEDS: UROCIT-K 40 MEQ PO ×2 (08:54→16:28)
[2024-08-16] MEDS: LOPRESSOR 12.5 MG PO (08:54)
[2024-08-16] MEDS: IMODIUM 2 MG PO ×2 (08:54→20:45)
[2024-08-16] MEDS: LOW STRENGTH ASPIRIN 81 MG PO (08:54)
[2024-08-16] MEDS: CLARITIN 10 MG PO (08:54)
[2024-08-16] MEDS: PACERONE 200 MG PO ×3 (08:54→22:10)
[2024-08-16] MEDS: PROTONIX 40 MG PO (08:54)
[2024-08-16] MEDS: FIRVANQ 125 MG PO ×2 (08:55→20:48)
[2024-08-16] MEDS: LIDOCAINE 4% PATCH TOPICAL (08:55)
[2024-08-16] MEDS: VISBIOME 1 CAP PO (08:55)
[2024-08-16] MEDS: LASIX 40 MG IV (08:59)
--- NOTE | 2024-08-16 09:19 | PHA.VAN.FU ---
Vancomycin Assessment / Plan
- Assessment
Renal Function: Stable
WBC's are: WNL
In the past 24 hrs, patient has been: Afebrile
Concomitant Antimicrobials: daptomycin
- Assessment - Therapeutic Drug Monitoring
Random Level: 15.8 - drawn ~16.5H after previous dose of 1g
Half-life 15.9 with peak /trough on 08/13 - predicting for Q24H interval
However, half-lives between random levels since were all > 30
Patient with some slight accumulation following re-dosing yesterday but additional clearance would be expected for full 24H interval
- Dosing Plan
Dosing by Level: Re-dose today (Vanc 1000mg x1 now)
- Monitoring Plan
Peak Level: peak = 28.7 - will assess with trough in AM
Trough Level: 08/17 05:30 - will not be a true trough but will use for pt-specific PK
- Follow Up
Pharmacy will continue to follow.
Vancomycin Follow UP
- -
Patient Age: 64
Patient Sex: Female
Vancomycin Day #: 9
Indication: Endocarditis
Requesting Provider: Dr Roy
Pertinent Antimicrobial Allergies:
Cefprozil - hives
cephalosporins - unknown
Ciprofloxacin - unknown
Penicillins - hives
Trimethoprim / sulfamethoxazole (Bactrim) - hives
Height / Weight:
Height 5 ft 5 in
Actual Weight 89.9 kg
Pertinent Past Medical History: Breast cancer (port)
- Vital Signs / Lab Results
Temp Pulse Resp BP Pulse Ox
98.4 F 74 18 100/62 98
08/15/24 21:59 08/16/24 05:00 08/15/24 21:59 08/16/24 04:00 08/16/24 05:34
Lab Results - Hematology
08/14/24 08/15/24 08/16/24
05:11 03:26 03:21
WBC 10.4 9.4 8.4
Lab Results - Chemistry
08/13/24 08/14/24 08/14/24
21:30 05:11 15:25
BUN 17 16 16
Creatinine 1.0 0.9 0.8
Estimated Creat Clear 62 69 77
08/14/24 08/15/24 08/16/24
21:15 03:26 03:21
BUN 15 15 17
Creatinine 0.9 0.9 0.8
Estimated Creat Clear 68 68 76
Microbiology Results
08/12/24 07:45 Blood Culture - Preliminary
Blood/Venous No Growth in 4 days- Final report to follow
08/11/24 04:12 Blood Culture - Final
Blood/Venous No Growth - Final Report
08/09/24 04:34 Blood Culture - Final
Blood/Venous S aureus-Methicillin Sensitive
Gram Stain - Final
08/10/24 04:52 Blood Culture - Final
Blood/Venous No Growth - Final Report
08/08/24 05:31 Blood Culture - Final
Blood/Venous S aureus-Methicillin Sensitive
Gram Stain - Final
08/07/24 09:52 Blood Culture - Final
Blood/Venous S aureus-Methicillin Sensitive
Gram Stain - Final
Therapeutic Drug Monitoring
Vancomycin Peak 51.1 ug/ml (18-26) H* 08/12/24 21:47
Vancomycin Trough 36.6 ug/ml (5-20) H* 08/13/24 05:25
Random Vancomycin 15.8 ug/ml 08/16/24 03:21
--- NOTE | 2024-08-16 09:20 | PTCARENOTE ---
Pt transported to [facility] CXR by pt transport.
--- NOTE | 2024-08-16 09:40 | PTCARENOTE ---
Pt returned back to CVICU. 3 assist to stand and pivot to the chair.
[2024-08-16] MEDS: NSS IV (10:03)
[2024-08-16] MEDS: VANCOCIN 200 IV (10:49)
--- NOTE | 2024-08-16 11:08 | CM ---
Reviewed chart. Telephone call to [facility]. Liaison to review[facility]. Will need to pre-cert with her insurance. Telephone call to [facility] Liaison to start the home infusion post rehab.
Faxed referral to [facility] , just need to send script when it is ready. Met with Mrs. Dsouza to review discharge plans. Medical work-up in progress. The discharge plan is to go to [facility]. if accepted and approved by insurance when medically
stable.
[2024-08-16] MEDS: CUBICIN 20 MG IV (12:02)
--- NOTE | 2024-08-16 12:10 | PTCARENOTE ---
Pt reassessed. c/o rectal pain, FMS removed, stool thick, not reinserted. NSR on tele with rates in the 70s. BP 91/63. POX 98% on 1L NC, kept on for patient comfort per pt request. Adair draining large amounts of clear yellow urine. Surgical sites
stable. No other acute changes.
--- NOTE | 2024-08-16 13:56 | W.PN.ID1 ---
Addendum entered and electronically signed by Sofy Roy MD 08/16/24 14:52:
Per nurse, stool has firmed up. Rectal tube removed.
Cancel C. diff order.
Original Note:
Date of Service
Date of Service: August 16, 2024
Today's Communication
See below.
Assessment / Plan
# Complicated Staphylococcus aureus (MSSA) bacteremia (13 sets of Bcx's);
.bcx's cleared from 08/10 forward
# Catheter associated bloodstream infection from port, present on admission.
. 08/04 s/p port removed, cath tip MSSA
# [place] MV infective endocarditis cardio-embolic CVA/acute left vision loss
.08/08 DONNELL 0.9cm mobile vege attached to MV
.08/10 s/p open radical mitral valve repair debridement of annulus, patch repair, annuloplasty with 30 mm band
. 08/10 MV tissue cx: MSSA
# Acute urinary retention, peña placed 08/09/24
# Multiple antibiotic allergies including penicillin, cephalosporins, sulfa, cipro
# New onset Afib, now in sinus
# R Breast cancer on adjuvant chemotherapy
# Neutropenia (resolved) and Pancytopenia due to chemotherapy
Plan:
- Discontinue daptomycin 1g IV q24h
- Continue IV Vancomycin x 6 weeks from OR, ie. through 08/22/24
Will determine steady state Vancomycin dose tomorrow pending levels.
- Stool C. diff Ag+, toxin neg = colonization
On prophylactic Vancomycin 125mg po daily while on systemic abx.
Still with diarrhea. Repeat stool for C. diff toxin.
����������������������������������������������������������
Chief Complaint
-: Bacteremia and Other (endocarditis)
Subjective / Review of Systems
No new complaints.
Vital Signs / Physical Exam
Vital Signs
Vital Signs
Temp Pulse Resp BP Pulse Ox
97.9 F 78 16 91/63 98
08/16/24 12:10 08/16/24 12:10 08/16/24 12:10 08/16/24 12:10 08/16/24 12:10
Physical Exam
Constitutional: No Acute Distress and Comfortable
Cardiovascular: Regular Rate and S1/S2
Pulmonary: Clear
Gastrointestinal: Soft, Non Tender, Non Distended and Normal Bowel Sounds
Extremities: Negative Edema
Neurological: AO x 3
Lines: PICC (RUE)
Objective Data
Lab Data
Lab Results
08/16/24 03:21
08/16/24 03:21
PT 19.9 Sec (11.4-14.6) H 08/12/24 03:36
INR 1.67 08/12/24 03:36
APTT 34.3 Sec (23.4-35.0) 08/12/24 03:36
Estimated Creat Clear 76 ml/min 08/16/24 03:21
Lactic Acid Cancelled 08/03/24 12:03
Total Bilirubin 0.9 mg/dl (0.2-1.3) 08/09/24 04:34
AST 42 U/L (14-36) H 08/09/24 04:34
ALT 38 U/L (0-35) H 08/09/24 04:34
Alkaline Phosphatase 118 U/L (38-126) 08/09/24 04:34
Most recent labs reviewed.
Micro Results:
08/12/24 07:45 Blood Culture - Preliminary
Blood/Venous No Growth in 4 days- Final report to follow
08/11/24 04:12 Blood Culture - Final
Blood/Venous No Growth - Final Report
08/16/24 03:21 Blood Culture - Pending
Blood/Venous
08/16/24 03:21 Blood Culture - Pending
Blood/Venous
08/09/24 04:34 Blood Culture - Final
Blood/Venous S aureus-Methicillin Sensitive
Gram Stain - Final
08/10/24 04:52 Blood Culture - Final
Blood/Venous No Growth - Final Report
08/08/24 05:31 Blood Culture - Final
Blood/Venous S aureus-Methicillin Sensitive
Gram Stain - Final
08/07/24 09:52 Blood Culture - Final
Blood/Venous S aureus-Methicillin Sensitive
Gram Stain - Final
08/06/24 03:49 Blood Culture - Final
Blood/Venous S aureus-Methicillin Sensitive
Gram Stain - Final
08/06/24 03:30 Blood Culture - Final
Blood/Venous S aureus-Methicillin Sensitive
Gram Stain - Final
08/05/24 09:33 Blood Culture - Final
Blood/Venous S aureus-Methicillin Sensitive
Gram Stain - Final
08/10/24 13:45 Tissue Culture - Final
Tissue S aureus-Methicillin Sensitive
Gram Stain - Final
08/04/24 04:17 Blood Culture - Final
Blood/Venous S aureus-Methicillin Sensitive
Gram Stain - Final
08/05/24 09:21 Blood Culture - Final
Blood/Venous S aureus-Methicillin Sensitive
Gram Stain - Final
08/04/24 04:17 Blood Culture - Final
Blood/Venous S aureus-Methicillin Sensitive
Gram Stain - Final
08/03/24 22:57 Salmonella/Shigella Culture - Final
Feces/Stool No Salmonella, Shigella, Aeromonas or Plesiomonas species
isolated.
Campylobacter Culture - Final
No Campylobacter species isolated.
Shiga Toxin Test - Final
No E. coli Shiga Toxin 1 or 2 detected.
Stool Leukocytes - Final
08/04/24 08:18 Catheter Tip Culture - Final
Catheter Tip S aureus-Methicillin Sensitive
08/02/24 20:31 Blood Culture - Final
Blood/Venous S aureus-Methicillin Sensitive
Gram Stain - Final
08/03/24 21:45 Urine Culture - Final
Urine S aureus-Methicillin Sensitive
08/02/24 20:28 Urine Culture - Final
Urine S aureus-Methicillin Sensitive
08/02/24 20:27 Blood Culture - Final
Blood/Venous S aureus-Methicillin Sensitive
Gram Stain - Final
08/02/24 20:51 Blood Culture - Final
Blood/Venous S aureus-Methicillin Sensitive
Gram Stain - Final
08/03/24 22:57 C. difficile GDH Antigen & Toxins - Final
Feces/Stool C. difficile antigen positive, toxin negative.
Clostridium difficile present, but toxin not detected.
Patient may be a carrier, colonized with nontoxinogenic
strain or the level of toxin in sample is below detection
limits. This information should be used in conjunction with
the patient's clinical history.
- Final
Negative for Norovirus GI and GII.
08/02/24 20:39 Influenza Types A & B (DAHLIA) - Final
Nasal Swab Negative for Influenza A & B, NAAT
Negative results must be combined with clinical observations
and patient history.
Nucleic Acid Amplification test (NAAT)performed on the
[employer] platform.
08/08/24 Brain MRI: Several tiny foci of nonhemorrhagic acute/subacute infarcts within the bilateral centrum semiovale/periventricular regions and right cerebellum.
08/02/24 CXR: Probable infectious/inflammatory pneumonitis.
[2024-08-16 14:42] LABS: Vancomycin Peak 28.7 ug/ml (18-26)
--- NOTE | 2024-08-16 16:40 | W.PN.CD ---
Today's Communication / Plan
-
cont. routine post-op care
diuresis
rehab
Impression / Plan
-
Card: Espinoza (for palps, AT/PSVT)
Mitral valve endocarditis, mitral regurgitation:
Sepsis due to MSSA bacteremia:
-DONNELL 08/08/2024: LVEF 60-65%, mobile vegetation attached to the base of P1/P2 segment of MV (0.9 x 0.7 x 0.7 cm), mild MR
-Status-post radical mitral valve repair [debridement of annulus, patch repair, annuloplasty with 30 mm band], open left sided maze procedure [cryoablation], LAAE [35 mm clip], Dr. Brian 08/10/24
-post-op, was on Levophed, dobutamine, and vasopressin, all of which have been stopped
-Remains in sinus rhythm on telemetry.
-Continue routine postsurgical care as directed by CT Surgery.
-Continue Daptomycin and Vancomycin
-weight stable, cont. diuresis
Acute/subacute bihemispheric embolic stroke
-Likely cardioembolic from MV vegetation
-Continue ASA. Will need AC for afib long-term
PAF, RVR:
- AFib is NEW this admit. Likely due to sepsis
- Anticipate at least several months of Amio- on dilt ER 240 a day and amiodarone 400 mg twice daily pre-op
- she is s/p MAZE/CLAUDIA clip as above
- Given AFib, after recovers from IE and MV surgery, plan to initiate Eliquis
- [id number] score is 5 for age, female, HTN, CVA
Pancytopenia
- Per oncology, etiology thought to be more likely ongoing infection then chemotherapy though both could be contributing
- Has not been thrombocytopenic in the past with chemo
Breast Ca, on chemo
HTN
Hx of PSVT (mechanism uncertain)
Subjective: Feeling improved, working toward rehab
Physical Exam
Vital Signs/Labs
Vital Signs
Temp Pulse Resp BP Pulse Ox
36.6 C 78 16 91/63 98
08/16/24 12:10 08/16/24 12:10 08/16/24 12:10 08/16/24 12:10 08/16/24 12:10
08/15/24 08/16/24 08/17/24
06:59 06:59 06:59
Actual Weight 87 kg 89.9 kg
08/16/24 03:21
08/16/24 03:21
PT 19.9 Sec (11.4-14.6) H 08/12/24 03:36
INR 1.67 08/12/24 03:36
APTT 34.3 Sec (23.4-35.0) 08/12/24 03:36
Magnesium 1.8 mg/dl (1.6-2.3) 08/16/24 03:21
Triglycerides 181 mg/dl (10-149) H 08/08/24 05:31
LDL Cholesterol, Calc 49 mg/dl 08/08/24 05:31
VLDL Cholesterol, Calc 36 mg/dl (0-30) H 08/08/24 05:31
HDL Cholesterol 22 mg/dl 08/08/24 05:31
Physical Exam
Constitutional: No acute distress
Cardiovascular: Rhythm & rate is regular
Respiratory: Respiratory effort normal
Neuro/Psych: AO x 3
Data Reviewed
-
Date of Service: August 16, 2024
Medical Decision Making: Reviewed Test Results
Labs: Labs Reviewed by me
--- NOTE | 2024-08-16 16:47 | PTCARENOTE ---
Pt reassessed. NSR on tele with rates in the 80s. BP 97/67. POX 95% on RA, per patient, O2 removed. Adequate UO from peña. tolerating meals eating 75-80%. No acute changes.
--- NOTE | 2024-08-16 20:00 | PTCARENOTE ---
Received patient at 1900. Pt OOB to chair, requested to get BIB. Asstx2 to stand and pivot from the chair to the bed. No dizziness reported. AOx3, pleasant, denies pain at this time. NIH remains 2 for facial droop and hemianopia; PERRLA, 3RB. SR on
CM pressures soft but stable, metoprolol held for hypotension per CVPA; pulses palpable throughout, +2 pitting B/L LE edema. Lungs diminished, 95% on RA, no cough. Abdomen SNT, obese, normoactive BS, no nausea reported, appetite improving, no
diarrhea noted since FMS removal during previous shift. Adair in place draining yellow urine. 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 RUE PICC dressing CDI, blood return noted but difficult to flush.
PIVx2 INT. Patient and spouse at bedside updated on POC, in agreement, assessment of needs ongoing, call lopez within reach.
[2024-08-16] MEDS: LOPRESSOR PO (20:48)
[2024-08-16] MEDS: ATIVAN 0.5 MG PO (22:10)
[2024-08-16] MEDS: MAGNESIUM OXIDE 500 MG PO (22:10)
[2024-08-17] VITALS (15 sets, daily range): BP systolic 91–140; BP diastolic 59–99; PULSE 81; O2SAT 96–97; BMI 31.9
--- NOTE | 2024-08-17 | PTCARENOTE ---
Afebrile, pt placed on 1LNC for desatting to low 90's/88-89% on RA while falling asleep. CHG bath performed, spouse at bedside supporting the patient. Assessment of needs ongoing, call lopez within reach.
--- NOTE | 2024-08-17 03:46 | W.PN.CT ---
Today's Communication / Plan
-
Plan:
-No major issues overnight. Hemodynamically and neurologically intact
-Off all drips
-Diarrhea has resolved. C difficile Neg., Diarrhea was likely from antibiotics (Vancomycin/Daptomycin). ID following
-MSSA bacteremia, repeat blood cultures since 08/11 are without growth thus far. ID following
-PICC line placed 08/15
-Replete electrolytes, Na 126, may need Samsca, Nephrology consult
-Monitor plts 108 today, was 100 yesterday
-H/H 7.6/22.3, was 8.3/24.3, may benefit from 1u PRBC with diuresis given c/o weakness. Wt has been up, check wt today
-Weight is up and has 2+ pitting edema, appears to be third spacing, responding to Albumin and Lasix, diuresed 3620 mL/24hrs
-Repeat TTE obtained 08/15 showed well seated MV repair, however mobile echo density is seen on the posterior (View 36, 54, 55) and possible anterior mitral leaflet
(View 45). No significant stenosis or regurgitation
-Head CT obtained 08/15 was negative for bleed
-Started Eliquis for PAF S/P MAZE, hx of Cardioembolic CVA, echo density seen on repeat TTE
-OOB into chair
-PT/OT has signed off
-Physiatry to evaluate for acute rehab ([place]) placement
-Wean off of O2
-Encourage use of IS
-Encourage nutritional intake, prealbumin 10.4 yesterday
-Awaiting acute rehab ([place]) placement likely tomorrow
Assessment / Plan
-
- Mitral valve endocarditis- s/p Radical mitral valve repair [debridement of annulus, patch repair, annuloplasty with 30 mm band]; Open left sided maze procedure [cryoablation]; Left atrial appendage exclusion [35 mm clip] by Dr. Brian on 08/10/24,
pod #6
- Intraop DONNELL: LVEF was pre and post 60% with no new regional wall motion abnormalities. RV was normal size and function. After coming off cardiopulmonary bypass there was no residual leak and the mean gradient across the valve was 2. The left
atrial appendage was also opened up prior to ligation to ensure that there was no vegetations within it.
- Mitral valve endocarditis with embolic phenomenon and sepsis, moderate mitral valve insufficiency
- Multiple CVAs
- Acute metabolic encephalopathy
- Active breast cancer, on chemotherapy
- Chemotherapy induced diarrhea
- Multiple electrolyte imbalances
- Paroxysmal atrial fibrillation
- Immunocompromise
- Acute hypoxic respiratory failure
- Stage 1 obesity, BMI 31
- Acute postop blood loss anemia- s/p 4 pRBCs total (1 preop, 2 intraop and 1 postop)
- Acute postop coagulopathy/thrombocytopenia - s/p Factor 7, 3 platelets and 2 FFPs
- Acute postop atelectasis
- Acute postop hypovolemia with subsequent hypervolemia
- Acute postop diarrhea, C. difficile negative
- Acute postop hypokalemia
- Acute postop hypocalcemia
- Acute postop hypomagnesemia
- Acute postop hyponatremia
Discussed patient care with: Cardiology, Nursing, Respiratory Therapy, Pharmacy and Care Team
Subjective
-
Date of Service: August 17, 2024
Pt c/o feeling weak and decreased appetite, diarrhea has resolved
Objective Data
-
PT 19.9 Sec (11.4-14.6) H 08/12/24 03:36
INR 1.67 08/12/24 03:36
APTT 34.3 Sec (23.4-35.0) 08/12/24 03:36
Vital Signs
Vital Signs
Temp Pulse Resp BP Pulse Ox
97.6 F 83 18 112/75 96
08/17/24 00:15 08/17/24 03:00 08/17/24 00:15 08/17/24 00:16 08/17/24 03:00
CT Intake/Output/Weight
08/16/24 08/16/24 08/17/24
06:59 18:59 06:59
Intake Total 440 / 1010 680 / 1160 480 / 1160
Output Total 860 / 1585 3025 / 3345 320 / 3345
Balance -420 / -575 -2345 / -2185 160 / -2185
SaO2: 96 (2L)
Physical Exam
-
General: Awake, Oriented and AOx3
Cardiovascular: Regular rate & rhythm, No Murmurs, No Rub and No Gallop
Respiratory: Decreased Breath Sounds (at bases, otherwise clear)
Sternum: Stable
Incision: Clean, Dry, Intact and Dressing Intact
Extremities: Edema +2
Data Reviewed
-
Lab Results: Results Reviewed
Medications: Active Meds Reviewed
Chest X-Ray: Report Reviewed and Image Reviewed
ECG: Report Reviewed and Image Reviewed
[2024-08-17] MEDS: FLEXBUMIN 50 IV ×3 (04:47→21:31)
[2024-08-17 04:57] LABS: Hematocrit 22.3 % (37.0-47.0); Hemoglobin 7.6 g/dL (12.0-16.0); Mean Corp Hgb Conc. 34.1 g/dL (33.0-37.0); Mean Corpuscular Hgb 31.7 pg (27.0-31.0); Mean Corpuscular Volume 92.9 fL (81.0-99.0); Mean Platelet Volume 11.1 fL (7.4-10.4); Platelet Count 108 10^3/uL (130-400); Red Cell Dist. Width 17.7 % (11.5-14.5); White Blood Cell Count 8.2 10^3/uL (4.8-10.8)
[2024-08-17 04:59] LABS: Ionized Calcium 1.06 mMOL/L (1.15-1.33)
--- NOTE | 2024-08-17 05:15 | PTCARENOTE ---
Hgb 7.6, Na 126, CPVA made aware. Awaiting orders. Patient reports getting a restful sleep. VSS. Mg and Ca Gluconate IV ordered.
[2024-08-17] MEDS: SYNTHROID 50 MCG PO (05:23)
[2024-08-17 05:25] LABS: Blood Urea Nitrogen 19 mg/dl (7-17); Calcium 7.4 mg/dl (8.4-10.2); Carbon Dioxide 29 mmol/L (22-30); Chloride 97 mmol/L (98-107); Estimated Creatinine Clearance 69 ml/min; Glucose 93 mg/dl (70-99); Magnesium 1.5 mg/dl (1.6-2.3); Potassium 4.4 mmol/L (3.5-5.1); Sodium 126 mmol/L (135-145); eGFR > 60.00
[2024-08-17 05:31] LABS: Prealbumin (Transthyretin) 11.2 mg/dl (17.6-36.0)
[2024-08-17] MEDS: CALCIUM GLUCONATE 100 IV (05:55)
[2024-08-17] MEDS: TYLENOL 1000 MG PO ×3 (05:55→22:38)
[2024-08-17] MEDS: MAGNESIUM SULFATE 50 IV (07:05)
--- NOTE | 2024-08-17 08:23 | PHA.VAN.FU ---
Vancomycin Assessment / Plan
- Assessment
Renal Function: Stable
WBC's are: WNL
In the past 24 hrs, patient has been: Afebrile
Concomitant Antimicrobials: vancomycin PO
- Assessment - Therapeutic Drug Monitoring
Extrapolated Cmax (mcg/mL): 31
Peak level was drawn: Appropriately (drawn ~2.1H after end of prior infusion)
Extrapolated Cmin (mcg/mL): 13.6
Trough Drawn: Appropriately
Calculated AUC (mcg*h/mL): 508
Calculated ke: 0.0358
Calculated half life (H): 19.3
Calculated Vd (L): 55
Calculated Vanc CL (ml/min): 33
Levels were following 2nd dose of 1000mg once daily but patient has been on vancomycin for about 10 days and likely close to steady state
Half-life today is consistent with half-life when patient was on Q12H interval
Appears Q24H interval is appropriate for the patient
- Dosing Plan
Adjust Regimen to: Vanc 1000mg Q24H - first dose now then 08/18 0600
- Monitoring Plan
No level(s) ordered at this time: consider repeat level(s) in next few days but by Mon 08/22 at latest
- Follow Up
Pharmacy will continue to follow.
Vancomycin Follow UP
- -
Patient Age: 64
Patient Sex: Female
Vancomycin Day #: 10
Indication: Endocarditis
Requesting Provider: Dr Roy
Pertinent Antimicrobial Allergies:
Cefprozil - hives
cephalosporins - unknown
Ciprofloxacin - unknown
Penicillins - hives
Trimethoprim / sulfamethoxazole (Bactrim) - hives
Height / Weight:
Height 5 ft 5 in
Actual Weight 86.9 kg
Pertinent Past Medical History: Breast cancer (port)
- Vital Signs / Lab Results
Temp Pulse Resp BP Pulse Ox
98.4 F 86 18 91/59 95
08/17/24 04:00 08/17/24 06:00 08/17/24 04:00 08/17/24 03:57 08/17/24 06:00
Lab Results - Hematology
08/15/24 08/16/24 08/17/24
03:26 03:21 04:34
WBC 9.4 8.4 8.2
Lab Results - Chemistry
08/14/24 08/14/24 08/15/24
15:25 21:15 03:26
BUN 16 15 15
Creatinine 0.8 0.9 0.9
Estimated Creat Clear 77 68 68
08/16/24 08/17/24
03:21 04:34
BUN 17 19 H
Creatinine 0.8 0.9
Estimated Creat Clear 76 69
Microbiology Results
08/12/24 07:45 Blood Culture - Final
Blood/Venous No Growth - Final Report
08/16/24 03:21 Blood Culture - Preliminary
Blood/Venous No Growth in 24 hours- Final report to follow
08/16/24 03:21 Blood Culture - Preliminary
Blood/Venous No Growth in 24 hours- Final report to follow
08/11/24 04:12 Blood Culture - Final
Blood/Venous No Growth - Final Report
08/09/24 04:34 Blood Culture - Final
Blood/Venous S aureus-Methicillin Sensitive
Gram Stain - Final
08/10/24 04:52 Blood Culture - Final
Blood/Venous No Growth - Final Report
Therapeutic Drug Monitoring
Vancomycin Peak 28.7 ug/ml (18-26) H 08/16/24 13:57
Vancomycin Trough 17.0 ug/ml (5-20) 08/17/24 04:34
Random Vancomycin 15.8 ug/ml 08/16/24 03:21
--- NOTE | 2024-08-17 09:00 | PTCARENOTE ---
Resumed care of patient. Walking rounds completed with previous RN. Pt assessed while she was lying in bed. Pt alert and oriented x4. Denies pain, shortness of breath, and nausea. GO with equal strength. Right shoulder limited ROM. NIH 2. Left
visual field cut. Facial droop. PERRLA 3mm brisk. NSR on tele with rates in the 80s. BP 100/70. Bilateral radial and DP pulses palpable. Bilateral lower extremity edema +2. POX 96% on 2L NC. Lungs diminished in the bases. IS encouraged-1250mL
achieved. No cough noted. Abdomen soft, round, obese, nontender. +BS. Pt placed on bedpan for urge of BM. Adair intact draining adequate amounts of clear yellow urine. Sternal incision with RAYMOND drain intact. 2 old chest tube sites approximated,
REGINE. Right upper arm PICC intact. Difficult to flush. 1unit PRBCs infusing. Left hand PIVx 2 intact. See MAR for medication administration. See worklist for complete nursing assessment. Plan of care reviewed and patient in agreement.
[2024-08-17] MEDS: CLARITIN 10 MG PO (09:01)
[2024-08-17] MEDS: NEURONTIN 100 MG PO ×3 (09:01→22:38)
[2024-08-17] MEDS: ELIQUIS 5 MG PO ×2 (09:01→20:53)
[2024-08-17] MEDS: LOW STRENGTH ASPIRIN 81 MG PO (09:01)
[2024-08-17] MEDS: MAGNESIUM OXIDE 500 MG PO ×2 (09:01→20:53)
[2024-08-17] MEDS: PACERONE 200 MG PO ×3 (09:01→22:38)
[2024-08-17] MEDS: UROCIT-K 40 MEQ PO ×2 (09:01→16:23)
[2024-08-17] MEDS: VISBIOME 1 CAP PO (09:01)
[2024-08-17] MEDS: PROTONIX 40 MG PO (09:01)
[2024-08-17] MEDS: LOPRESSOR 12.5 MG PO ×2 (09:01→20:53)
[2024-08-17] MEDS: LIDOCAINE 4% PATCH TOPICAL (09:02)
[2024-08-17] MEDS: VANCOCIN 200 IV (09:02)
--- NOTE | 2024-08-17 09:36 | W.PN.ID1 ---
Date of Service
Date of Service: August 17, 2024
Today's Communication
Continue IV Vanco through 09/22/24.
Continue po vanco through 09/26/24
Assessment / Plan
# Complicated Staphylococcus aureus (MSSA) bacteremia (13 sets of Bcx's);
.bcx's cleared from 08/10 forward
# Catheter associated bloodstream infection from port, present on admission.
. 08/04 s/p port removed, cath tip MSSA
# [place] MV infective endocarditis cardio-embolic CVA/acute left vision loss
.08/08 DONNELL 0.9cm mobile vege attached to MV
.08/10 s/p open radical mitral valve repair debridement of annulus, patch repair, annuloplasty with 30 mm band
. 08/10 MV tissue cx: MSSA
# Acute urinary retention, peña placed 08/09/24
# Multiple antibiotic allergies including penicillin, cephalosporins, sulfa, cipro
# New onset Afib, now in sinus
# R Breast cancer on adjuvant chemotherapy
# Neutropenia (resolved) and Pancytopenia due to chemotherapy
Plan:
- Continue IV Vancomycin 1000 mg IV q24 x 6 weeks from OR, ie. through 09/21/24
If transfer to [facility], Pharmacy will continue to follow Vanco levels and adjusts dosing as needed.
Follow weekly CBC/diff and CMP while on IV Vancomycin.
Infusion sheet submitted to Project Program Manager.
- Stool C. diff Ag+, toxin neg = colonization
On prophylactic Vancomycin 125mg po daily through 09/26/24.
����������������������������������������������������������
Chief Complaint
-: Bacteremia and Other (endocarditis)
Subjective / Review of Systems
Feeling better.
Vital Signs / Physical Exam
Vital Signs
Vital Signs
Temp Pulse Resp BP Pulse Ox
98.5 F 85 16 100/70 95
08/17/24 08:00 08/17/24 09:00 08/17/24 08:00 08/17/24 07:50 08/17/24 09:00
Physical Exam
Constitutional: No Acute Distress and Comfortable
Cardiovascular: Regular Rate and S1/S2
Pulmonary: Clear
Gastrointestinal: Soft, Non Tender, Non Distended and Normal Bowel Sounds
Extremities: Negative Edema
Neurological: AO x 3
Lines: PICC (RUE)
Objective Data
Lab Data
Lab Results
08/17/24 04:34
08/17/24 04:34
PT 19.9 Sec (11.4-14.6) H 08/12/24 03:36
INR 1.67 08/12/24 03:36
APTT 34.3 Sec (23.4-35.0) 08/12/24 03:36
Estimated Creat Clear 69 ml/min 08/17/24 04:34
Lactic Acid Cancelled 08/03/24 12:03
Total Bilirubin 0.9 mg/dl (0.2-1.3) 08/09/24 04:34
AST 42 U/L (14-36) H 08/09/24 04:34
ALT 38 U/L (0-35) H 08/09/24 04:34
Alkaline Phosphatase 118 U/L (38-126) 08/09/24 04:34
Most recent labs reviewed.
Micro Results:
08/12/24 07:45 Blood Culture - Final
Blood/Venous No Growth - Final Report
08/16/24 03:21 Blood Culture - Preliminary
Blood/Venous No Growth in 24 hours- Final report to follow
08/16/24 03:21 Blood Culture - Preliminary
Blood/Venous No Growth in 24 hours- Final report to follow
08/11/24 04:12 Blood Culture - Final
Blood/Venous No Growth - Final Report
08/09/24 04:34 Blood Culture - Final
Blood/Venous S aureus-Methicillin Sensitive
Gram Stain - Final
08/10/24 04:52 Blood Culture - Final
Blood/Venous No Growth - Final Report
08/08/24 05:31 Blood Culture - Final
Blood/Venous S aureus-Methicillin Sensitive
Gram Stain - Final
08/07/24 09:52 Blood Culture - Final
Blood/Venous S aureus-Methicillin Sensitive
Gram Stain - Final
08/06/24 03:49 Blood Culture - Final
Blood/Venous S aureus-Methicillin Sensitive
Gram Stain - Final
08/06/24 03:30 Blood Culture - Final
Blood/Venous S aureus-Methicillin Sensitive
Gram Stain - Final
08/05/24 09:33 Blood Culture - Final
Blood/Venous S aureus-Methicillin Sensitive
Gram Stain - Final
08/10/24 13:45 Tissue Culture - Final
Tissue S aureus-Methicillin Sensitive
Gram Stain - Final
08/04/24 04:17 Blood Culture - Final
Blood/Venous S aureus-Methicillin Sensitive
Gram Stain - Final
08/05/24 09:21 Blood Culture - Final
Blood/Venous S aureus-Methicillin Sensitive
Gram Stain - Final
08/04/24 04:17 Blood Culture - Final
Blood/Venous S aureus-Methicillin Sensitive
Gram Stain - Final
08/03/24 22:57 Salmonella/Shigella Culture - Final
Feces/Stool No Salmonella, Shigella, Aeromonas or Plesiomonas species
isolated.
Campylobacter Culture - Final
No Campylobacter species isolated.
Shiga Toxin Test - Final
No E. coli Shiga Toxin 1 or 2 detected.
Stool Leukocytes - Final
08/04/24 08:18 Catheter Tip Culture - Final
Catheter Tip S aureus-Methicillin Sensitive
08/02/24 20:31 Blood Culture - Final
Blood/Venous S aureus-Methicillin Sensitive
Gram Stain - Final
08/03/24 21:45 Urine Culture - Final
Urine S aureus-Methicillin Sensitive
08/02/24 20:28 Urine Culture - Final
Urine S aureus-Methicillin Sensitive
08/02/24 20:27 Blood Culture - Final
Blood/Venous S aureus-Methicillin Sensitive
Gram Stain - Final
08/02/24 20:51 Blood Culture - Final
Blood/Venous S aureus-Methicillin Sensitive
Gram Stain - Final
08/03/24 22:57 C. difficile GDH Antigen & Toxins - Final
Feces/Stool C. difficile antigen positive, toxin negative.
Clostridium difficile present, but toxin not detected.
Patient may be a carrier, colonized with nontoxinogenic
strain or the level of toxin in sample is below detection
limits. This information should be used in conjunction with
the patient's clinical history.
- Final
Negative for Norovirus GI and GII.
08/02/24 20:39 Influenza Types A & B (DAHLIA) - Final
Nasal Swab Negative for Influenza A & B, NAAT
Negative results must be combined with clinical observations
and patient history.
Nucleic Acid Amplification test (NAAT)performed on the
[employer] platform.
08/08/24 Brain MRI: Several tiny foci of nonhemorrhagic acute/subacute infarcts within the bilateral centrum semiovale/periventricular regions and right cerebellum.
08/02/24 CXR: Probable infectious/inflammatory pneumonitis.
[2024-08-17] MEDS: FIRVANQ 125 MG PO (09:46)
[2024-08-17] MEDS: LASIX 40 MG IV (09:46)
[2024-08-17] MEDS: IMODIUM 2 MG PO ×2 (09:46→20:53)
--- NOTE | 2024-08-17 09:49 | W.PN.CD ---
Today's Communication / Plan
-
Supplement magnesium.
Consider repeat DONNELL.
PT/OT.
Incentive spirometry.
Continue diuresis.
Impression / Plan
-
Impression/Plan: 64 y/o female with PSVT, HTN and BRCA on chemotherapy admitted with complicated MSSA sepsis/bacteremia related to port tip and [place] mitral valve endocarditis, subsequently complicated by new diagnosis of atrial fibrillation and
embolic CVA (septic vs thombotic).
Waxed Bag Machine Operator: Espinoza (for palps, AT/PSVT)
#Mitral valve endocarditis, mitral regurgitation:
-Acute.
-DONNELL 08/08/2024: LVEF 60-65%, mobile vegetation attached to the base of P1/P2 segment of MV (0.9 x 0.7 x 0.7 cm), mild MR.
-Status-post radical mitral valve repair [debridement of annulus, patch repair, annuloplasty with 30 mm band], open left sided maze procedure [cryoablation], LAAE [35 mm clip], Dr. Brian 08/10/24.
-Remains in sinus rhythm on telemetry.
-ABX per ID (vancomycin/daptomycin).
-Post TTE show mitral valve echodensity. Consider repeat DONNELL and repeat cultures.
-Continue routine post operative management, including amiodarone, metoprolol 12.5 mg BID.
-Supplement magnesium.
-Incentive spirometry.
-Ambulate when appropriate.
#Sepsis/MSSA bacteremia:
-Acute, due to port infection leading to mitral valve endocarditis.
-Port removed, MV repaired.
-ABX per ID.
#Bi-hemispheric embolic stroke:
-Acute/subacute.
-Likely cardioembolic from MV vegetation.
-CT head negative for any hemorrhagic conversion.
-Therapeutic anticoagulation with apixaban.
#PAF, RVR:
-New diagnosis this admit.
-Rate/rhythm control with amiodarone and metoprolol.
-CHADS2-Vasc = 5 (HTN, Age x1, CVA x2, Female).
-S/P MAZE/CLAUDIA clip. Therapeutic anticoagulation with apixaban.
#Pancytopenia
-Chronic, iatrogenic.
-Per oncology, etiology thought to be more likely ongoing infection then chemotherapy though both could be contributing.
-Has not been thrombocytopenic in the past with chemo.
#Breast Ca, on chemo
#HTN
#Hx of PSVT (mechanism uncertain)
Critical Care = 45 minutes.
Subjective/Interval History:
Weight down 3 kg from yesterday, remains > 9 kg up from baseline weight.
SaO2 = 96% on 2LNC.
CXR shows persistent pulmonary edema.
TTE on 08/15/2024 shows mitral valve echodensity.
Hbg down to 7.6. Transfused. Platelets stable.
Na down to 126.
Ca down to 7.4.
Mg down to 1.5.
DATA:
Cardiac Catheterization, 08/09/2024:
CONCLUSIONS
1. No obstructive coronary artery disease.
2. Elevated LVEDP at 20 mmHg.
3. No obstructive iliofemoral stenosis bilaterally.
Mitral Valve Repair, 08/10/2024:
Procedure(s) Performed:
1. Standard sternotomy with aortic and bicaval cannulation
2. Open left sided maze procedure [cryoablation]
3. Left atrial appendage exclusion [35 mm clip]
4. Radical mitral valve repair [debridement of annulus, patch repair, annuloplasty with 30 mm band]
5. Placement of temporary atrial ventricular pacing wires
6. Transesophageal echocardiographic
7. Rigid sternal fixation with plates
Echocardiogram, 08/15/2024:
CONCLUSIONS
TDS.
Normal-appearing LV size and function with no obvious wall motion
abnormalities.
LVEF is 55-60% by visual estimation.
Normal right ventricular size and function.
s/p mitral valve repair with 30 mm Annuloplasty ring. Mobile echo density is
seen on the posterior (View 36, 54, 55) and possible anterior mitral leaflet
(View 45). No significant stenosis or regurgitation.
Estimated pulmonary artery pressure of 33 mmHg assuming a right atrial pressure
of 3 mmHg.
Compared to intraoperative DONNELL and TTE from August 03, 2024, new echodensity seen
on mitral valve as above.
Ordering providers were made aware.
Physical Exam
Vital Signs/Labs
Vital Signs
Temp Pulse Resp BP Pulse Ox
36.9 C 85 16 100/70 96
08/17/24 08:00 08/17/24 09:00 08/17/24 08:00 08/17/24 07:50 08/17/24 09:00
08/15/24 08/16/24 08/17/24
11:59 11:59 11:59
Actual Weight 87 kg 89.9 kg 86.9 kg
08/17/24 04:34
08/17/24 04:34
PT 19.9 Sec (11.4-14.6) H 08/12/24 03:36
INR 1.67 08/12/24 03:36
APTT 34.3 Sec (23.4-35.0) 08/12/24 03:36
Magnesium 1.5 mg/dl (1.6-2.3) L 08/17/24 04:34
Triglycerides 181 mg/dl (10-149) H 08/08/24 05:31
LDL Cholesterol, Calc 49 mg/dl 08/08/24 05:31
VLDL Cholesterol, Calc 36 mg/dl (0-30) H 08/08/24 05:31
HDL Cholesterol 22 mg/dl 08/08/24 05:31
Physical Exam
Constitutional: No acute distress and Comfortable
EENT: Anicteric and Moist mucous membranes
Cardiovascular: Rhythm & rate is regular, Pedal edema present, JVD present, S1S2 is normal and Murmur/rub/gallop absent
Respiratory: Respiratory effort normal, Lungs clear to auscul., Wheeze Absent, Crackles Absent and Rhonchi Absent
GI: Soft, Distention absent, Flat, Non tender and Normal bowel sounds
Neuro/Psych: AO x 3
Data Reviewed
-
Date of Service: August 17, 2024
Medical Decision Making: Reviewed Test Results, Independent Historian Assessment and Test Interpretation
EKG: Tracing Personally Visualized and interpreted and Report Reviewed by me
Echo: Tracing Personally Visualized and interpreted and Report Reviewed by me
X-Ray/CT/US/MRI/NUC/PET: Image Personally Visualized and interpreted and Report Reviewed by me
Medical Tests (PFT, Pathology etc): Report Reviewed by me
Labs: Labs Reviewed by me
Old Records: Reviewed
[2024-08-17] MEDS: NSS IV (10:36)
--- NOTE | 2024-08-17 11:26 | VATNOTE ---
Called by PCN to assess PICC line, states the catheter is difficult to flush and that the pump keeps alarming. Both lumens assessed. Able to flush with the usual amount of force. Blood return brisk for both lumens. Discussed troubleshooting measures
with PCN, will come back to assess again if needed.
--- NOTE | 2024-08-17 12:20 | PTCARENOTE ---
Pt reassessed. NSR with rates in the 70s. BP 106/68. POX 96% on 2L NC. Surgical sites stable. Adair draining large amounts of clear yellow urine. No acute changes.
[2024-08-17 13:56] LABS: Blood Urea Nitrogen 19 mg/dl (7-17); Calcium 8.2 mg/dl (8.4-10.2); Carbon Dioxide 30 mmol/L (22-30); Chloride 92 mmol/L (98-107); Estimated Creatinine Clearance 61 ml/min; Glucose 119 mg/dl (70-99); Potassium 4.5 mmol/L (3.5-5.1); Sodium 126 mmol/L (135-145); eGFR > 60.00
--- NOTE | 2024-08-17 16:30 | PTCARENOTE ---
Pt reassessed. NSR on tele with rates in the 80s. BP 109/71. POx 95% on 2L NC. Surgical sites stable. peña draining adequate amounts of clear yellow urine. Tolerating sitting in the chair. Visiting with family.
--- NOTE | 2024-08-17 17:53 | CON.MD ---
Consultation - Medical
-
Chief Complaint:�Stroke
�
History of Present Illness:�64-year-old Right handed female with PMH (as below) presented to [facility] on 08/02/2024 with weakness and reduced responsiveness with hypotension, tachycardia, and fever concerning for sepsis. Patient had some
recent diarrhea and cough. Urinalysis was essentially negative, platelets were 71,000 and sodium was 126 with potassium of 3.2. Flu and COVID were negative. Treated with IV fluid and antibiotics. Found to have A-fib with RVR started on heparin
and amiodarone drip. Thought to have acute metabolic encephalopathy secondary to sepsis and dehydration. Blood cultures positive for Staph aureus. There with pancytopenia thought secondary to chemotherapy. Also with acute hypoxic respiratory
insufficiency secondary to pneumonia. ID felt initial source of infection likely catheter associated bloodstream infection from the port which was removed 08/04. Developed coffee-ground emesis and seen by GI with supportive care and holding of
heparin as well as PPI. Diarrhea thought secondary to chemotherapy, no white blood cells noted in stool. C. difficile antigen was positive but toxin was negative. Empirically treated with empiric vancomycin per infectious disease with probiotics
as well. TTE with no valvular disease. Continue to have positive blood cultures so vancomycin switched to daptomycin. Patient developed a sudden loss of vision in the left eye, had some right sided weakness since admission. Seen by neurology.
CT of the head without abnormalities. DONNELL noting mobile spherical vegetation attached to the base of the P1/P2 segment of the posterior mitral valve leaflet. Concern for acute to subacute bihemispheric embolic stroke thought to be cardioembolic in
nature. MRI of the brain with several tiny foci of acute to subacute infarcts within the bilateral centrum semiovale/Emmanuel ventricular regions of the right cerebellum. Started on aspirin daily. Required 2 units of PRBCs for anemia with
improvement. Cardiac catheterization on 08/09 with no obstructive coronary artery disease. On 08/10/24 she had a left atrial appendage exclusion, left-sided maze, and radical mitral valve repair by Dr. Clint Brian. Required 3 units of PRBCs and 2
units of platelets pre and postoperatively. Found to have acute urinary retention postoperatively requiring Adair. Extubated on 08/11. DONNELL 08/15 with well-seated mitral valve repair however mobile echodensity seen on the posterior and possible
anterior mitral leaflet. Plan from ID is to continue IV vancomycin through 09/22/2024 and oral vancomycin through 09/26/2024.
�
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
Procedure History:�Double breast conserving lumpectomy with sentinel lymph node dissection, laparoscopic hysterectomy, cholecystectomy, left parotid tumor resection, Sacrocolpopexy
Family History:�None pertinent
�
Social History:�
Functional Level Premorbidly:�Independent with all activities�
Functional Level Currently:�Max assist bed mobility, min to mod assist for transfers, able to shift weight and take steps. Dependent for toileting.
�
Tobacco:�Denies�
Alcohol:�Denies�
Drug use:�Denies�
�
Lives with:�Spouse
24-hour assistance available:�No, works today full-time day and night time job
Number of floors:�2
# steps to enter:�5
# steps to second floor: Full flight
Potential First floor set up:�Yes
Driving:�Yes
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
�
�
Allergies:�
Allergy/AdvReac Type Severity Reaction Status Date / Time
apricot (Apricot) Allergy Hives Verified 09/01/15 14:39
blueberry Allergy Hives Verified 08/03/24 21:44
cefprozil (From Cefzil) Allergy Hives Verified 09/01/15 14:39
Cephalosporins Allergy Unknown Verified 05/24/24 10:58
ciprofloxacin (From Cipro) Allergy Unknown Verified 05/24/24 10:58
dextromethorphan (From Allergy Unknown Verified 05/24/24 10:58
Powderly DMT)
Penicillins Allergy Hives Verified 09/01/15 14:39
pyrilamine (From Powderly DMT) Allergy Unknown Verified 05/24/24 10:58
scallops Allergy Unknown Verified 05/24/24 11:02
Sulfa (Sulfonamide Allergy Hives Verified 09/01/15 14:39
Antibiotics)
(Sulfa(Sulfonamide
Antibiotics))
sulfamethoxazole (From Allergy Hives Verified 09/01/15 14:39
Bactrim)
trimethoprim (From Bactrim) Allergy Hives Verified 09/01/15 14:39
venom-honey bee Allergy Hives Verified 08/03/24 21:44
�
Review of Systems:�
Constitutional: (x) abNormal _fatigue
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
Ear/Nose/Throat: (x) Normal _
Respiratory: (x) Normal _
Cardiovascular: (x) abNormal _infected heart valve
Gastrointestinal: (x) abNormal _diarrhea
Genitourinary: (x) Normal _
Musculoskeletal: (x) Normal _
Integumentary: (x) Normal _
Neurologic: (x) abNormal _stroke with vision loss and weakness
Psychiatric: (x) Normal _
Endocrine: (x) Normal _
Hematologic/Lymphatic: (x) Normal _
Allergic/Immunologic: (x) Normal _
�
Medications:�
Active Current Visit Medication List
Category Date Time Status
0.9% Sodium Chloride 500 ml [Nss] 500 ml Med 08/10/24 14:43 Active
IV CORDIS
Acetaminophen [Tylenol/Feverall] Med 08/10/24 14:43 Active
650 mg RECTAL Q4HPRN PRN
Acetaminophen [Tylenol] Med 08/10/24 14:43 Active
1,000 mg PO TID@0600,1400,2200
Acetaminophen [Tylenol] Med 08/10/24 14:43 Active
650 mg PO Q4HPRN PRN
Albumin Human 25% 50 ml [Flexbumin] Med 08/17/24 12:00 Active
12.5 grams in 50 ml IV Q8H
Amiodarone [Pacerone] Med 08/10/24 16:00 Active
200 mg PO TID
Apixaban [Eliquis] Med 08/16/24 08:00 Active
5 mg PO BID
Aspirin Med 08/11/24 08:00 Active
300 mg RECTAL DAILYPRN PRN
Aspirin Chewable [Low Strength Aspirin] Med 08/11/24 08:00 Active
81 mg PO DAILY
Bisacodyl [Dulcolax] Med 08/10/24 14:43 Active
10 mg RECTAL DAILYPRN PRN
Cyclobenzaprine HCl [Flexeril] Med 08/10/24 14:43 Active
5 mg PO Q8HPRN PRN
Diltiazem Extended Release [Cardizem Cd] Med 08/04/24 08:00 Hold
240 mg PO DAILY
Flush (0.9% Sodium Chloride) [Flush (Nss)] Med 08/10/24 15:00 Active
See Dose Instructions IV PER PROTOCOL
Gabapentin [Neurontin] Med 08/10/24 16:00 Active
100 mg PO TID
Lactobac/Bifidobac [Visbiome] Med 08/13/24 08:00 Active
1 cap PO DAILY
Levothyroxine [Synthroid] Med 08/03/24 06:00 Active
50 mcg PO DAILY @ 0600
Lidocaine [Lidocaine 4% Patch] Med 08/11/24 08:00 Active
1 patch TOPICAL DAILY
Loperamide [Imodium] Med 08/17/24 10:00 Active
2 mg PO BID
Loperamide [Imodium] Med 08/05/24 08:20 Active
2 mg PO Q4HPRN PRN
Loratadine [Claritin] Med 08/03/24 08:00 Active
10 mg PO DAILY
Lorazepam [Ativan] Med 08/11/24 22:30 Active
0.5 mg PO HS
Magnesium Hydroxide [Milk of Magnesia] Med 08/10/24 14:43 Active
30 ml PO BIDPRN PRN
Magnesium Oxide Med 08/16/24 21:00 Active
500 mg PO BID
Metoprolol [Lopressor] Med 08/11/24 08:00 Active
12.5 mg PO Q12
Ondansetron Injectable [Zofran] Med 08/10/24 14:43 Active
4 mg IV Q8HPRN PRN
Oxycodone [Roxicodone] Med 08/10/24 14:43 Active
2.5 mg PO Q4HPRN PRN
Oxycodone [Roxicodone] Med 08/10/24 14:43 Active
5 mg PO Q4HPRN PRN
Pantoprazole [Protonix] Med 08/15/24 09:00 Active
40 mg PO DAILY
Potassium Chloride [KCl] Med 08/10/24 14:43 Active
40 meq PO PRN PRN
Potassium Citrate [Urocit-K] Med 08/14/24 16:00 Active
40 meq PO BID AT 0800,1600
Remove Patch [Remove Lidocaine Patch] Med 08/11/24 20:00 Active
1 patch REMOVE DAILY@2000
Vancomycin 1 Gram/200 ml [Vancocin] Med 08/17/24 09:00 Active
1 gram in 200 ml IV DAILY@0600
Vancomycin HCl [Firvanq] Med 08/18/24 08:00 Active
125 mg PO DAILY
�
Vitals:�
Temp Pulse Resp BP Pulse Ox
97.6 F 81 16 109/71 95
08/17/24 16:27 08/17/24 16:27 08/17/24 16:27 08/17/24 16:27 08/17/24 16:27
Height 5 ft 5 in
Actual Weight 86.9 kg
Body Mass Index (BMI) 31.9
�
Physical Exam:�
General Appearance/Observation: Well-developed, well-nourished female in no apparent distress.�
Pain/Comfort Assessment: Denies�
Mood/Affect: Appropriate�
�
Integumentary/Operative Site:�sternal incision and drain sites with dressing.
�� Pressure Ulcer Evaluation: absent over heels.�
�
Eyes: Conjunctiva/Lids: normal��� Pupils: pupils equal round and reactive to light and Accommodation
Ears/Nose/Throat: oral mucosa moist, throat clear.������������ Lips/Teeth/Gums: normal
Cardiovascular: Heart: irregularly irregular, no murmur�
Pulses: dorsalis pedis 2+ bilaterally�
Respiratory: Respiratory Effort/Chest Expansion: normal������ Auscultation: Clear to auscultation bilaterally
Gastrointestinal: abdomen not tender, no distension, normal abdominal bowel sounds
Genitourinary: No Adair�
Rectal Exam: Deferred�
Extremities:�Edema: mild edema both legs�Cyanosis: None�Trophic�changes: None
�
Neurology Exam:
Orientation: Alert, Oriented to self, Time, Place�
Memory: Intact for recent medical concerns
Repetition: Intact
Comprehension: Intact
Two step command: impaired at times
Naming: Intact
Cranial Nerves:
�� CNII:�Pupillary light reflex: Intact���Visual Field: can only see shadows left eye. Full visual field in left.
�� CN III, IV, : Extraocular muscles: Intact�
�� CN V:�Facial Sensation�at�Forehead: Intact,�Maxilla: Intact,�Mandible: Intact
�� CN VII:�Facial movement: decreased on left
�� CN VIII:�Hearing: Normal
�� CN IX/X:�Speech & swallow: Normal,�Position of Uvula: Midline
�� CN XI:�Shoulder shrug: Symmetric
�� CN XII:�Tongue protrusion: Midline
Sensory:
�� Light touch: Intact in bilateral upper and lower extremities
Reflexes:
�� Biceps: 2+ bilaterally
�� Brachioradialis: 2+ bilaterally
�� Triceps: 2+ bilaterally
�� Patellar: 2+ bilaterally
�� Achilles: 2+ bilaterally
�� Babinski: Up going bilaterally
�� Clonus: None
�� Jaylin: Negative bilaterally�
Cerebellar: Dysmetria/Ataxia: present on right, not on left.�
Musculoskeletal: Motor: (Manual muscle scale 0-5)�
Muscle SA EF WE EE FF FA HF KE DF EHL PF
Right� 4 4 4 4 4 4 3 4 5 5 5
Left 4 5 5 5 5 5 4 4 5 5 5
�
Tone: Normal in all extremities�
Range of Motion: Passively within normal limits in all extremities�
�
Lab Results
Laboratory Data
08/18/24 04:33
08/18/24 04:33
PT 19.9 Sec (11.4-14.6) H 08/12/24 03:36
INR 1.67 08/12/24 03:36
APTT 34.3 Sec (23.4-35.0) 08/12/24 03:36
Total Bilirubin 0.9 mg/dl (0.2-1.3) 08/09/24 04:34
Direct Bilirubin 0.4 mg/dl (0.0-0.4) 08/09/24 04:34
AST 42 U/L (14-36) H 08/09/24 04:34
ALT 38 U/L (0-35) H 08/09/24 04:34
Alkaline Phosphatase 118 U/L (38-126) 08/09/24 04:34
Total Protein 5.7 g/dl (6.3-8.2) L 08/09/24 04:34
Albumin 2.7 g/dl (3.5-5.0) L 08/09/24 04:34
�
Diagnostic Results:�as per HPI�
�
Assessment
64 y/o R handed F PMH (SVT/atrial tachycardia, hypertension, hyperlipidemia, hypothyroidism, mild mitral regurgitation recent diagnosis of right-sided medullary breast cancer on chemotherapy every 2 weeks) with metabolic encephalopathy secondary to
dehydration and sepsis from MSSA port infection with acute hypoxic respiratory insufficiency secondary to pneumonia, C. difficile colonization, endocarditis S/P 08/10/24 left atrial appendage exclusion, left-sided maze, and radical mitral valve
repair, acute to subacute infarcts within the bilateral centrum semiovale lisa-ventricular regions of the right cerebellum with ADL and ambulatory dysfunction.
�
Plan�
PM&R�PT/OT to increase independence with ADLs, improve balance, coordination, endurance, strength, mobility, community reintegration, decreased burden of care on others and family education.�
MSSA sepsis from port infection: IV vancomycin through 09/22/2024 and oral vancomycin for C. difficile prophylaxis through 09/26/2024.
Bilateral embolic CVA: Secondary prophylaxis with aspirin, statin, and blood pressure control (SBP less than 180 and diastolic less than 100 to participate with therapy for ischemic stroke). Continue to monitor neurologic status.� Continues with
antibiotic to treat endocarditis.
Right nondominant hemiparesis: High risk for falls and sliding out of chair/bed. Safety reinforced.�
- Avoid using affected arm to help lift or pull patient as this will cause trauma to the shoulder.
Left eye visual loss: makes patient at increased risk for falls.� Will need therapy to work on scanning of environment for safe navigation.��
C.diff colonization: on oral vanco during treatment prophylaxis
HTN: continue medications, monitor closely�
HLD: Statin�
Hypothyroidism: levothyroxine.
Atrial fibrillation with RVR: Apixiban anticoagulation and rate control with amiodarone and metoprolol.������������������������������������������
Bilateral lower extremity edema: Consider TEDS as able. Increased fluid will cause more force requirement to move lower extremities which requires more strength and increases fatigue.�
Pancytopenia: likely from recent chemotherapy.
Breast CA: was on chemo now held at this time.�
Psych: Psychology consult.� Monitor mood, medications as needed.�
Skin: monitor for pressure sores/rashes/lesions.�
Pain: acetaminophen or oxycodone as needed.� Gabapentin for chemotherapy neuropathy
Bowel: On prophylactic vancomycin for C. difficile colonization without active antigen, probiotic, loperamide
Bladder: Time void, PVRs, PRN straight cath.�Adair recently pulled and with retention.
GI Prophylaxis: Pantoprazole�
DVT Prophylaxis: Mechanical and Eliquis
FEN: regular diet
-Hyponatremia: getting worse, nephrology consulted.
Pulmonary: Incentive spirometry�
Obesity: Continue to director of group counseling program patient about diet adjustments to control obesity. Body habitus and increased force to move body and extremities causes further difficulty with functional tasks.�
Safety: Continue to reinforce assistance with all transfers.�
Code Status:� Full code
Dispo�(date/plan/equipment needs): Home with family care.� Social history reviewed.�
Functional and Medical Goals:�Modified Independent with ADL�s, ambulation, transfers�
Discharge Destination:�Acute inpatient rehabilitation�
Summary of recommendations:
-�Discharge Destination:�Acute inpatient rehabilitation
MSSA sepsis from port infection: IV vancomycin through 09/22/2024 and oral vancomycin for C. difficile prophylaxis through 09/26/2024.
Bilateral embolic CVA: Secondary prophylaxis with aspirin, statin, and blood pressure control (SBP less than 180 and diastolic less than 100 to participate with therapy for ischemic stroke). Continue to monitor neurologic status.� Continues with
antibiotic to treat endocarditis.
Right nondominant hemiparesis: High risk for falls and sliding out of chair/bed. Safety reinforced.�
- Avoid using affected arm to help lift or pull patient as this will cause trauma to the shoulder.
Left eye visual loss: makes patient at increased risk for falls.� Will need therapy to work on scanning of environment for safe navigation.��
Hyponatremia: getting worse, nephrology consulted, needs to be improved prior to transfer to rehab.
Bilateral lower extremity edema: Consider TEDS as able. Increased fluid will cause more force requirement to move lower extremities which requires more strength and increases fatigue.
Urinary retention: Time void, PVRs, PRN straight cath. could be from CVA. Moving bowels well.
A total of 80 minutes were spent with the patient preparing for the evaluation, obtaining history, performing examination and evaluation, counseling, data review, case management, care coordination, traffic recorder, and EMR documentation.
�
Thank you for allowing me to care for your patient. Please contact me with any questions or concerns.
Consultation
-
Date/Time Consultation Performed: 08/17/24
Requesting Provider: Dr. Brian
Performing Provider: Dr. Chato Goncalves
Reason for Consultation: Stroke
[2024-08-17] MEDS: ATIVAN 0.5 MG PO (22:38)
[2024-08-17] MEDS: MAGIC OR MIRACLE MOUTHWASH 10 ML PO (23:44)
[2024-08-18] VITALS (8 sets, daily range): BP systolic 105–124; BP diastolic 65–84; O2SAT 97; BMI 32.3
[2024-08-18] MEDS: FLEXBUMIN 50 IV (04:35)
[2024-08-18 04:53] LABS: Hematocrit 24.8 % (37.0-47.0); Hemoglobin 8.8 g/dL (12.0-16.0); Mean Corp Hgb Conc. 35.5 g/dL (33.0-37.0); Mean Corpuscular Hgb 32.4 pg (27.0-31.0); Mean Corpuscular Volume 91.2 fL (81.0-99.0); Platelet Count 122 10^3/uL (130-400); Red Blood Cell Count 2.72 10^6/uL (4.20-5.40); Red Cell Dist. Width 16.9 % (11.5-14.5); White Blood Cell Count 8.2 10^3/uL (4.8-10.8)
[2024-08-18 05:15] LABS: Blood Urea Nitrogen 19 mg/dl (7-17); Calcium 7.4 mg/dl (8.4-10.2); Carbon Dioxide 29 mmol/L (22-30); Chloride 94 mmol/L (98-107); Estimated Creatinine Clearance 76 ml/min; Glucose 91 mg/dl (70-99); Magnesium 1.6 mg/dl (1.6-2.3); Potassium 4.6 mmol/L (3.5-5.1); Sodium 123 mmol/L (135-145); eGFR > 60.00
[2024-08-18] MEDS: TYLENOL 1000 MG PO ×3 (05:25→21:39)
[2024-08-18] MEDS: SYNTHROID 50 MCG PO (05:26)
[2024-08-18] MEDS: VANCOCIN 200 IV (05:26)
--- NOTE | 2024-08-18 06:30 | PTCARENOTE ---
pt transferred to room 2258. Pt AAOx3 [facility] completed with MAIL TELLER. Pt denies pain at that time. Pt oriented to the room, call lopez in reach.
0600 Adair cath removed per order.
--- NOTE | 2024-08-18 06:44 | W.PN.ONC2 ---
Today's Communication / Plan
-
To Rehab.
Heme Onc signing off.
Impression
Impression
Medullary breast cancer, stage T2 N0 M0, HER+, HER2 3+, on adjuvant TCHP, intent of care curative
Port infection complicated by bacteremia, s/p port removal 08/04
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
Hypothyroidism
Atrial fibrillation- new to this admission
multiple cva with Left eye visual deficit -new to this admission
pancytopenia secondary to antineoplastic therapy+/-infection -neutropenia/leukopenia resolved -platelets stable >100,000, no evidence of acute DIC with normal fibrinogen
Acute postop blood loss anemia- s/p 4 pRBCs total (1 preop, 2 intraop and 1 postop)
Acute postop coagulopathy/thrombocytopenia - s/p Factor 7, 3 unit of platelets and 2 FFPs
Diarrhea improving-on prophylactic oral Vanco
Plan
Plan
Counts stable. Should improve back to baseline.
Stable for D/C to rehab.
F/U Dr. Bernard im 2-3 weeks for re-evaluation
Heme will sign off.
Subjective/Objective
Chief Complaint
ACS Heme Onc PN
Subjective
No complaints. Tells me she is being transfered to [place] for rehab.
Vital Signs:
Vital Signs
Temp Pulse Resp BP Pulse Ox
97.8 F 78 17 113/65 96
08/18/24 04:24 08/18/24 04:24 08/18/24 04:24 08/18/24 04:24 08/18/24 04:24
Lab Results:
Laboratory Data
WBC 8.2 10^3/uL (4.8-10.8) 08/18/24 04:33
Hgb 8.8 g/dL (12.0-16.0) L 08/18/24 04:33
Plt Count 122 10^3/uL (130-400) L 08/18/24 04:33
PT 19.9 Sec (11.4-14.6) H 08/12/24 03:36
INR 1.67 08/12/24 03:36
APTT 34.3 Sec (23.4-35.0) 08/12/24 03:36
eGFR > 60.00 08/18/24 04:33
Physical Exam
Cardiology: S1 and S2
Pulmonary: Clear
--- NOTE | 2024-08-18 08:12 | W.PN.CD ---
Today's Communication / Plan
-
Check FENa, urine Na, urine + serum osmolality.
Consider nephrology consult. Role for tolvaptan?
Continue diuresis in the mean time.
PT/OT.
Planning for discharge to [facility].
Impression / Plan
-
Impression/Plan: 64 y/o female with PSVT, HTN and BRCA on chemotherapy admitted with complicated MSSA sepsis/bacteremia related to port tip and [place] mitral valve endocarditis, subsequently complicated by new diagnosis of atrial fibrillation and
embolic CVA (septic vs thombotic).
Ssis Developer: Espinoza (for palps, AT/PSVT)
#Mitral valve endocarditis, mitral regurgitation:
-Acute.
-DONNELL 08/08/2024: LVEF 60-65%, mobile vegetation attached to the base of P1/P2 segment of MV (0.9 x 0.7 x 0.7 cm), mild MR.
-Status-post radical mitral valve repair [debridement of annulus, patch repair, annuloplasty with 30 mm band], open left sided maze procedure [cryoablation], LAAE [35 mm clip], Dr. Brian 08/10/24.
-Remains in sinus rhythm on telemetry.
-ABX per ID (vancomycin/daptomycin).
-Post TTE show mitral valve echodensity. Discussed with Dr. Brian. Unlikely vegetation given time course, possible thrombus from new valve architecture. Continue apixaban and repeat TTE in 30 days. If echo density remains, we will repeat a DONNELL
at that time.
-Continue routine post operative management, including amiodarone, metoprolol 12.5 mg BID.
-Incentive spirometry.
-Ambulate with therapy as much as possible. Planing for [facility].
#Hyponatremia
-Acute.
-Na down to 123, remains visibly volume overloaded. Possible cardiorenal vs. intravascular depletion (poor oncotic pressure).
-Check FENa, urine Na, serum + urine osmolality.
-Consider nephrology consult. Role for tolvaptan?
#Sepsis/MSSA bacteremia:
-Acute, due to port infection leading to mitral valve endocarditis.
-Port removed, MV repaired.
-ABX per ID.
#Bi-hemispheric embolic stroke:
-Acute/subacute.
-Likely cardioembolic from MV vegetation.
-CT head negative for any hemorrhagic conversion.
-Therapeutic anticoagulation with apixaban.
#PAF, RVR:
-New diagnosis this admit.
-Rate/rhythm control with amiodarone and metoprolol.
-CHADS2-Vasc = 5 (HTN, Age x1, CVA x2, Female).
-S/P MAZE/CLAUDIA clip. Therapeutic anticoagulation with apixaban.
#Pancytopenia
-Chronic, iatrogenic.
-Per oncology, etiology thought to be more likely ongoing infection then chemotherapy though both could be contributing.
-Has not been thrombocytopenic in the past with chemo.
#Breast Ca, on chemo
#HTN
#Hx of PSVT (mechanism uncertain)
Subjective/Interval History:
Reviewed echo and discussed with Dr. Brian. Anterior mitral leaflet echodensity seems unlikely to be a new vegetation this quickly. He believes it may be thrombus from the new valve architecture. Patient started on apixaban for PAF which will also
cover this potential thrombus. Plan for repeat TTE in 30 days. If echo density remains, we will move forward to repeat DONNELL.
Transferred to IVU.
Heme/Onc signed off.
Weight is up 1.1 kg (?).
Received a unit of blood yesterday.
Continues to receive doses of albumin.
Na down to 123.
DATA:
Cardiac Catheterization, 08/09/2024:
CONCLUSIONS
1. No obstructive coronary artery disease.
2. Elevated LVEDP at 20 mmHg.
3. No obstructive iliofemoral stenosis bilaterally.
Mitral Valve Repair, 08/10/2024:
Procedure(s) Performed:
1. Standard sternotomy with aortic and bicaval cannulation
2. Open left sided maze procedure [cryoablation]
3. Left atrial appendage exclusion [35 mm clip]
4. Radical mitral valve repair [debridement of annulus, patch repair, annuloplasty with 30 mm band]
5. Placement of temporary atrial ventricular pacing wires
6. Transesophageal echocardiographic
7. Rigid sternal fixation with plates
Echocardiogram, 08/15/2024:
CONCLUSIONS
TDS.
Normal-appearing LV size and function with no obvious wall motion
abnormalities.
LVEF is 55-60% by visual estimation.
Normal right ventricular size and function.
s/p mitral valve repair with 30 mm Annuloplasty ring. Mobile echo density is
seen on the posterior (View 36, 54, 55) and possible anterior mitral leaflet
(View 45). No significant stenosis or regurgitation.
Estimated pulmonary artery pressure of 33 mmHg assuming a right atrial pressure
of 3 mmHg.
Compared to intraoperative DONNELL and TTE from August 03, 2024, new echodensity seen
on mitral valve as above.
Ordering providers were made aware.
Physical Exam
Vital Signs/Labs
Vital Signs
Temp Pulse Resp BP Pulse Ox
36.3 C 78 20 113/65 95
08/18/24 07:26 08/18/24 04:24 08/18/24 07:26 08/18/24 04:24 08/18/24 07:26
08/16/24 08/17/24 08/18/24
11:59 11:59 11:59
Actual Weight 89.9 kg 86.9 kg 88 kg
08/18/24 04:33
08/18/24 04:33
PT 19.9 Sec (11.4-14.6) H 08/12/24 03:36
INR 1.67 08/12/24 03:36
APTT 34.3 Sec (23.4-35.0) 08/12/24 03:36
Magnesium 1.6 mg/dl (1.6-2.3) 08/18/24 04:33
Triglycerides 181 mg/dl (10-149) H 08/08/24 05:31
LDL Cholesterol, Calc 49 mg/dl 08/08/24 05:31
VLDL Cholesterol, Calc 36 mg/dl (0-30) H 08/08/24 05:31
HDL Cholesterol 22 mg/dl 08/08/24 05:31
Physical Exam
Constitutional: No acute distress and Comfortable
EENT: Anicteric and Moist mucous membranes
Cardiovascular: Rhythm & rate is regular, Pedal edema present, JVD present, S1S2 is normal and Murmur/rub/gallop absent
Respiratory: Respiratory effort normal and Crackles Present
GI: Soft, Distention absent, Flat, Non tender and Normal bowel sounds
Neuro/Psych: AO x 3
Data Reviewed
-
Date of Service: August 18, 2024
Medical Decision Making: Reviewed Test Results, Independent Historian Assessment, Test Interpretation and Review of Case with other Provider
EKG: Tracing Personally Visualized and interpreted and Report Reviewed by me
Echo: Tracing Personally Visualized and interpreted and Report Reviewed by me
X-Ray/CT/US/MRI/NUC/PET: Image Personally Visualized and interpreted and Report Reviewed by me
Medical Tests (PFT, Pathology etc): Image Personally Visualized and interpreted and Report Reviewed by me
Labs: Labs Reviewed by me
Old Records: Reviewed
--- NOTE | 2024-08-18 08:14 | W.PN.CT ---
Today's Communication / Plan
-
-pod #8
-c/o painful ulcers in the mouth (upper palate and R side of tongue- started magic mouthwash
-weak, requires 2 person assist for transfer to and from chair
-got 1 pRBC on 08/17, followed by Lasix40 mg and 25% Albumin x3. UO 2325 in 12 hrs.
-Post TTE shows mitral valve echodensity- started on Eliquis on 08/16. Plans for repeat Echo in 2 weeks on Eliquis
-Na trended down from 126 to 123 today - started 1200 cc/day fluid restriction. Continue diuresis
-diarrhea resolved - had formed BM
-per ID, on iv Vanco through 09/22/24 and po Vanco through 09/26/24
-encourage IS (750 so far)
-continue PT/OT
-appreciate everyone's input
Assessment / Plan
-
- Mitral valve endocarditis- s/p Radical mitral valve repair [debridement of annulus, patch repair, annuloplasty with 30 mm band]; Open left sided maze procedure [cryoablation]; Left atrial appendage exclusion [35 mm clip] by Dr. Brian on 08/10/24,
pod #8
- Intraop DONNELL: LVEF was pre and post 60% with no new regional wall motion abnormalities. RV was normal size and function. After coming off cardiopulmonary bypass there was no residual leak and the mean gradient across the valve was 2. The left
atrial appendage was also opened up prior to ligation to ensure that there was no vegetations within it.
- Mitral valve endocarditis with embolic phenomenon and sepsis, moderate mitral valve insufficiency
- Multiple CVAs
- Acute metabolic encephalopathy
- Active breast cancer, on chemotherapy
- Chemotherapy induced diarrhea
- Multiple electrolyte imbalances
- Paroxysmal atrial fibrillation
- Immunocompromise
- Acute hypoxic respiratory failure
- Stage 1 obesity, BMI 31
- Acute postop blood loss anemia- s/p 4 pRBCs total (1 preop, 2 intraop and 1 postop)
- Acute postop coagulopathy/thrombocytopenia - s/p Factor 7, 3 platelets and 2 FFPs
- Acute postop atelectasis
- Acute postop hypovolemia with subsequent hypervolemia
- Acute postop diarrhea, C. difficile negative
- Acute postop hypokalemia
- Acute postop hypocalcemia
- Acute postop hypomagnesemia
- Acute postop hyponatremia -started 1200 fluid restriction
- Acute postop deconditioning
- Post TTE shows mitral valve echodensity- suspected thrombus - started on Eliquis on 08/16/24
- Acute postop mouth ulcers on 08/17/24- started Magic wash
Discussed patient care with: Nursing and Care Team
Subjective
-
Date of Service: August 18, 2024
Objective Data
-
Lab Results
08/18/24 04:33
08/18/24 04:33
PT 19.9 Sec (11.4-14.6) H 08/12/24 03:36
INR 1.67 08/12/24 03:36
APTT 34.3 Sec (23.4-35.0) 08/12/24 03:36
Vital Signs
Vital Signs
Temp Pulse Resp BP Pulse Ox
97.4 F 78 20 113/65 95
08/18/24 07:26 08/18/24 04:24 08/18/24 07:26 08/18/24 04:24 08/18/24 07:26
CT Intake/Output/Weight
08/17/24 08/18/24 08/18/24
18:59 06:59 18:59
Intake Total 1220 / 1720 500 / 1720
Output Total 2325 / 2800 475 / 2800
Balance -1105 / -1080 25 / -1080
SaO2: 95
Physical Exam
-
General: Awake and AOx3
Cardiovascular: Regular rate & rhythm, No Murmurs and No Rub
Respiratory: Rales (at bases b/l. No wheeze)
Incision: Clean, Dry and Intact
Extremities: Edema +1 (1+ DPs b/l)
Abdomen: soft, nontender, nondistended
Data Reviewed
-
Lab Results: Results Reviewed
Medications: Active Meds Reviewed
Chest X-Ray: Report Reviewed
ECG: Report Reviewed
--- NOTE | 2024-08-18 08:16 | PHA.VAN.FU ---
Addendum entered and electronically signed by Bessie Campbell [facility] 08/18/24 16:38:
Trough ordered for Saturday 08/19 to assess if levels remaining in appropriate range
Original Note:
Vancomycin Assessment / Plan
- Assessment
Renal Function: Stable
WBC's are: WNL
In the past 24 hrs, patient has been: Afebrile
Concomitant Antimicrobials: PO Vancomycin
- Dosing Plan
Continue: Vanc 1000mg Q24H
- Monitoring Plan
No level(s) ordered at this time: consider levels in next few days
- Follow Up
Pharmacy will continue to follow.
Vancomycin Follow UP
- -
Patient Age: 64
Patient Sex: Female
Vancomycin Day #: 11
Indication: Endocarditis
Requesting Provider: Dr Roy
Pertinent Antimicrobial Allergies:
Cefprozil - hives
cephalosporins - unknown
Ciprofloxacin - unknown
Penicillins - hives
Trimethoprim / sulfamethoxazole (Bactrim) - hives
Height / Weight:
Height 5 ft 5 in
Actual Weight 88 kg
Pertinent Past Medical History: Breast cancer (port)
- Vital Signs / Lab Results
Temp Pulse Resp BP Pulse Ox
97.4 F 78 20 113/65 95
08/18/24 07:26 08/18/24 04:24 08/18/24 07:26 08/18/24 04:24 08/18/24 07:26
Lab Results - Hematology
08/16/24 08/17/24 08/18/24
03:21 04:34 04:33
WBC 8.4 8.2 8.2
Lab Results - Chemistry
08/16/24 08/17/24 08/17/24
03:21 04:34 13:03
BUN 17 19 H 19 H
Creatinine 0.8 0.9 1.0
Estimated Creat Clear 76 69 61
08/18/24
04:33
BUN 19 H
Creatinine 0.8
Estimated Creat Clear 76
Microbiology Results
08/16/24 03:21 Blood Culture - Preliminary
Blood/Venous No Growth in 48 hours- Final report to follow
08/16/24 03:21 Blood Culture - Preliminary
Blood/Venous No Growth in 48 hours- Final report to follow
08/12/24 07:45 Blood Culture - Final
Blood/Venous No Growth - Final Report
08/11/24 04:12 Blood Culture - Final
Blood/Venous No Growth - Final Report
Therapeutic Drug Monitoring
Vancomycin Peak 28.7 ug/ml (18-26) H 08/16/24 13:57
Vancomycin Trough 17.0 ug/ml (5-20) 08/17/24 04:34
Random Vancomycin 15.8 ug/ml 08/16/24 03:21
[2024-08-18] MEDS: FIRVANQ 125 MG PO (08:53)
[2024-08-18] MEDS: CLARITIN 10 MG PO (08:54)
[2024-08-18] MEDS: LASIX 40 MG IV (08:54)
[2024-08-18] MEDS: PROTONIX 40 MG PO (08:54)
[2024-08-18] MEDS: LIDOCAINE 4% PATCH 1 PATCH TOPICAL (08:54)
[2024-08-18] MEDS: NEURONTIN 100 MG PO ×3 (08:54→21:40)
[2024-08-18] MEDS: LOW STRENGTH ASPIRIN 81 MG PO (08:55)
[2024-08-18] MEDS: ELIQUIS 5 MG PO ×2 (08:55→20:34)
[2024-08-18] MEDS: PACERONE 200 MG PO ×3 (08:55→21:39)
[2024-08-18] MEDS: IMODIUM 2 MG PO (08:55)
[2024-08-18] MEDS: MAGNESIUM OXIDE 500 MG PO ×2 (08:55→20:34)
[2024-08-18] MEDS: UROCIT-K 40 MEQ PO ×2 (08:56→16:56)
[2024-08-18] MEDS: MAGIC OR MIRACLE MOUTHWASH 10 ML PO (09:11)
[2024-08-18] MEDS: LOPRESSOR PO (09:19)
[2024-08-18 10:19] LABS: Osmolality Serum 258 mOsm/kg (275-300)
--- NOTE | 2024-08-18 10:50 | PTCARENOTE ---
Addendum entered by Marco A Almonte RN 08/18/24 14:57:
Complaints of bladder fullness, straight cath 1600 cc of pale yellow, urine collected and sent to lab. Patient is AO x 3, with periods of forgetfulness. Neurologically unchanged with vision loss left eye, left eye droop. Right upper arm slight
weakness and general weakness to his lower extremities. NIH 4. Jah drain in place with dressing. MASD to groin, perineum and sacrum. Barrier creams applied. +3 leg edema, NSR HR 70-80's. Oxygen at 2 liters NC, [place], fine crackles at the bases.
Complaints of lower back pain, 2.5 mg of Roxicodone given at 1200, now asleep in the chair. Needs max assist to the chair. Call lopez in reach
Original Note:
Complaints of bladder fullness, straight cath 1500 cc of pale yellow, urine collected and sent to lab
--- NOTE | 2024-08-18 10:52 | W.CON.NEPH ---
Consultation
-
Date/Time Consultation Requested: 08/18/24 0936
Date/Time Consultation Performed: 08/18/24 1015
Requesting Provider: Lauren Rich CRNP
Performing Provider: Loni Wisdom
Reason for Consultation: Hyponatremia
Medical History
-
Chief Complaint: Weakness
History of Present Illness:
64-year-old woman with past medical history significant for SVT/atrial tachycardia, hypertension on diltiazem, hyperlipidemia, hypothyroidism on levothyroxine, recent diagnosis of right-sided breast cancer (IDC G3 [id number] ER pos ND neg HER2 neg
Ki-67 50-60%), status post double breast conserving lumpectomy with sentinel lymph node dissection for which she was on adjuvant chemotherapy every 2 weeks last chemotherapy was on Thursday 4 days hall monitor, presented to the emergency department with
weakness and reduced responsiveness on 08/02. Found to be septic shock, MSSA bacteremia with persistent +ve blood culture till 08/11 felt to be from port. SHe has IE with cardioembolic stroke. She underwent open mitral valve repair on 08/10. Hospital
course complicated with Afib, urine retention. Antibiotics managed by ID currently on Vancomycin since allergy to PCN.
Her sodium on admit was at 126 which subsequently normalized however for last 4days sodium declining more despite IV lasix to 123 today hence nephrology consulted. She offers no sig pain. no n/v. no cp or sob. no abd pain. no diarrhea. BP soft with
low dose BB. She just had Peña removed this am and has urge to go but unable to pass urine.
Past Medical History
Right breast cancer status post conservative lumpectomy with sentinel lymph node dissection, IDC G3 [id number] ER pos ND neg HER2 neg Ki-67 50-60% ), HTN, Hypercholesterolemia, Hypothyroidism, Valvular Disease (Mild mitral regurgitation.) and Other
(History of proximal atrial tachycardia without known atrial fibrillation
Past Surgical History: Other (Laparoscopic hysterectomy Cholecystectomy Left parotid tumor resection Right localized lumpectomy Sacrocolpopexy)
Social History
Tobacco: Non-Smoker
Alcohol: None
Personal:
Living: With Family
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
Family History
no CKD
Family History: Not Pertinent
Allergies / Home Medications
Allergy/AdvReac Type Severity Reaction Status Date / Time
apricot (Apricot) Allergy Hives Verified 09/01/15 14:39
blueberry Allergy Hives Verified 08/03/24 21:44
cefprozil (From Cefzil) Allergy Hives Verified 09/01/15 14:39
Cephalosporins Allergy Unknown Verified 05/24/24 10:58
ciprofloxacin (From Cipro) Allergy Unknown Verified 05/24/24 10:58
dextromethorphan (From Allergy Unknown Verified 05/24/24 10:58
[place] DMT)
Penicillins Allergy Hives Verified 09/01/15 14:39
pyrilamine (From [place] DMT) Allergy Unknown Verified 05/24/24 10:58
scallops Allergy Unknown Verified 05/24/24 11:02
Sulfa (Sulfonamide Allergy Hives Verified 09/01/15 14:39
Antibiotics)
(Sulfa(Sulfonamide
Antibiotics))
sulfamethoxazole (From Allergy Hives Verified 09/01/15 14:39
Bactrim)
trimethoprim (From Bactrim) Allergy Hives Verified 09/01/15 14:39
venom-honey bee Allergy Hives Verified 08/03/24 21:44
�Medication �Instructions �Recorded �Confirmed �Type
lorazepam 0.5 mg tablet 0.5 mg PO DAILYPRN PRN anxiety 11/03/11 08/05/24 History
cyclobenzaprine 5 mg tablet 5 mg PO HS PRN muscles spasm 05/24/24 08/05/24 History
diltiazem HCl 240 mg 240 mg PO DAILY Heart 05/24/24 08/05/24 History
capsule,extended release 24 hr Disease/Condition
(Cardizem CD)
levothyroxine 50 mcg tablet 50 mcg PO DAILY Thyroid 05/24/24 08/05/24 History
loratadine 10 mg tablet 10 mg PO DAILY Allergies 05/24/24 08/05/24 History
naproxen 250 mg tablet 250 mg PO BID PRN mild pain 05/24/24 08/05/24 History
Review of Systems
-
All other systems: Negative unless noted
Physical Exam
Vital Signs
Vital Signs
Temp Pulse Resp BP Pulse Ox
97.4 F 78 20 113/65 95
08/18/24 07:26 08/18/24 04:24 08/18/24 07:26 08/18/24 04:24 08/18/24 08:21
Lab Results
WBC 8.2 10^3/uL (4.8-10.8) 08/18/24 04:33
RBC 2.72 10^6/uL (4.20-5.40) L 08/18/24 04:33
Hgb 8.8 g/dL (12.0-16.0) L 08/18/24 04:33
Hct 24.8 % (37.0-47.0) L 08/18/24 04:33
Plt Count 122 10^3/uL (130-400) L 08/18/24 04:33
Sodium 123 mmol/L (135-145) L 08/18/24 04:33
Potassium 4.6 mmol/L (3.5-5.1) 08/18/24 04:33
Chloride 94 mmol/L (98-107) L 08/18/24 04:33
Carbon Dioxide 29 mmol/L (22-30) 08/18/24 04:33
BUN 19 mg/dl (7-17) H 08/18/24 04:33
Creatinine 0.8 mg/dL (0.6-1.0) 08/18/24 04:33
eGFR > 60.00 08/18/24 04:33
Glucose 91 mg/dl (70-99) 08/18/24 04:33
Calcium 7.4 mg/dl (8.4-10.2) L 08/18/24 04:33
Phosphorus 2.9 mg/dl (2.5-4.5) 08/08/24 05:31
Albumin 2.7 g/dl (3.5-5.0) L 08/09/24 04:34
Physical Exam
General: Awake, Alert, Oriented, AOx3, No Distress and Nontoxic
HEENT: Anicteric, Conjunctivae Clear and Facial Symmetry
Respiratory: Clear, Normal Excursion and Nonlabored Respirations
Cardiac: S1/S2 and Regular Rate/Rhythm
Breast: Deferred by me
Abdomen: Soft, Nontender and Nondistended
Musculoskeletal: No Cyanosis and Edema (2+)
Skin: No Rash
Neuro: Nonfocal/Grossly Intact
Psych: Mood/afflect pleasant, Insight/judgement good and Appropriate
Data Reviewed
-
Labs: Labs Reviewed by me and Discussed with Patient
Assessment/Plan
-
IMP:
Mitral valve endocarditis- s/p Radical mitral valve repair 08/10/24
Hyponatremia
Embolic Multiple CVAs
MSSA bacteremia, sepsis
Active breast cancer, on chemotherapy
Chemotherapy induced diarrhea-resolved
Paroxysmal atrial fibrillation
Stage 1 obesity, BMI 31
pancytopenia
Anemia
Hypomagnesemia
Urine retention
plan:
A/w sepsis, MSSA bacteremia, IE M valve s/p repair
now worsening hyponatremia despite diuresis-hypervolemic
check U osmo, U na
if U osmo high dose samsca
follow bladder scan, may need reinsert peña if fails
cotn lasix
avoid hypotension, on low dose BB
d/w pt
d/w nursing
[2024-08-18 11:12] LABS: Osmolality Urine 306 mOsm/kg (300-900)
[2024-08-18] MEDS: ROXICODONE 2.5 MG PO (11:54)
[2024-08-18] MEDS: VISBIOME 1 CAP PO (11:54)
[2024-08-18 13:36] LABS: Urine Sodium 91 mmol/L (30-90)
[2024-08-18] MEDS: NSS IV (14:57)
--- NOTE | 2024-08-18 15:12 | CM ---
Chart reviewed. Patient is independent of ADLS, lives with her in a 2 STH, 5 IHSAN, 0 DME. PT/OT evaluation recommending Acute Rehab. Referral sent and accepted to [facility]. Patient also will need IV antibiotics. Referral sent to [facility]. Antibiotics 100% covered. Patient will need authorization for transfer. CM to follow
[2024-08-18] MEDS: SAMSCA 7.5 MG PO (18:04)
[2024-08-18 18:31] LABS: Urine Albumin 1+ (Neg - Trace); Urine Bilirubin Negative (Negative); Urine Character Clear (Clear); Urine Color Yellow; Urine Glucose Negative (Negative); Urine Ketone Negative (Negative); Urine Leukocyte Negative (Negative); Urine Nitrite Negative (Negative); Urine Occult Blood 2+ (Negative); Urine Urobilinogen Negative (Neg - 1+)
[2024-08-18 18:37] LABS: Urine Red Blood Cell 16-20 /HPF (0-2); Urine Squamous Cell 0-2 /LPF (Few)
[2024-08-18 18:38] LABS: Urine Bacteria Few (Negative)
[2024-08-18] MEDS: IMODIUM PO (20:34)
[2024-08-18] MEDS: ATIVAN 0.5 MG PO (21:39)
[2024-08-18] MEDS: LOPRESSOR 12.5 MG PO (21:40)
--- NOTE | 2024-08-18 22:16 | PTCARENOTE ---
Addendum entered by Anuja Powell RN 08/19/24 05:40:
pt urinated large amount of urine, bladder scan after for 840ml. Straight cath for 1050ml
Original Note:
Pt unable to void, denies any urgency or pain. Bladder scan 887ml, straight cath for 1300ml clear yellow urine
[2024-08-19] VITALS (10 sets, daily range): BP systolic 80–120; BP diastolic 56–70; PULSE 80; O2SAT 96; BMI 31.7
--- NOTE | 2024-08-19 01:50 | VATNOTE ---
picc drsg grossly bloody. small amt of active oozing from insertion site. rd per protocol with gauze. vat to monitor.
[2024-08-19] MEDS: TYLENOL 1000 MG PO ×3 (06:14→21:26)
[2024-08-19] MEDS: SYNTHROID 50 MCG PO (06:14)
[2024-08-19 06:23] LABS: Hematocrit 24.9 % (37.0-47.0); Hemoglobin 8.9 g/dL (12.0-16.0); Mean Corp Hgb Conc. 35.7 g/dL (33.0-37.0); Mean Corpuscular Hgb 32.8 pg (27.0-31.0); Mean Corpuscular Volume 91.9 fL (81.0-99.0); Mean Platelet Volume 10.5 fL (7.4-10.4); Platelet Count 143 10^3/uL (130-400); Red Blood Cell Count 2.71 10^6/uL (4.20-5.40); Red Cell Dist. Width 17.2 % (11.5-14.5); White Blood Cell Count 7.9 10^3/uL (4.8-10.8)
[2024-08-19 06:35] LABS: Vancomycin Trough 16.1 ug/ml (5-20)
[2024-08-19 06:39] LABS: Blood Urea Nitrogen 18 mg/dl (7-17); Calcium 7.7 mg/dl (8.4-10.2); Carbon Dioxide 32 mmol/L (22-30); Chloride 95 mmol/L (98-107); Estimated Creatinine Clearance 68 ml/min; Glucose 96 mg/dl (70-99); Potassium 4.1 mmol/L (3.5-5.1); Sodium 128 mmol/L (135-145); eGFR > 60.00
[2024-08-19] MEDS: VANCOCIN 200 IV (06:46)
--- NOTE | 2024-08-19 08:04 | PHA.VAN.FU ---
Addendum entered and electronically signed by Bessie Campbell [facility] 08/19/24 15:56:
Will obtain peak after Sat AM dose and plan for trough prior to Thursday's dose to assess if patient having accumulation.
Original Note:
Vancomycin Assessment / Plan
- Assessment
Renal Function: Stable
WBC's are: WNL
In the past 24 hrs, patient has been: Afebrile
Concomitant Antimicrobials: vancomycin po
- Assessment - Trough Based Monitoring
Trough Value: 16.1 - drawn ~24.5H after previous dose
Patient may be having accumulation
- Dosing Plan
Continue: Vanc 1000mg Q24H
Will continue present dosing for now
Adjust administration time to 1000 as patient may be transferred to [place] and this will be a more practical administration time for obtaining levels at [place]
- Monitoring Plan
No level(s) ordered at this time: tentatively plan for repeat trough Thursday
- Follow Up
Pharmacy will continue to follow.
Vancomycin Follow UP
- -
Patient Age: 64
Patient Sex: Female
Vancomycin Day #: 12
Indication: Endocarditis
Requesting Provider: Dr Roy
Pertinent Antimicrobial Allergies:
Cefprozil - hives
cephalosporins - unknown
Ciprofloxacin - unknown
Penicillins - hives
Trimethoprim / sulfamethoxazole (Bactrim) - hives
Height / Weight:
Height 5 ft 5 in
Actual Weight 86.4 kg
Pertinent Past Medical History: Breast cancer (port)
- Vital Signs / Lab Results
Temp Pulse Resp BP Pulse Ox
97.9 F 78 16 116/75 96
08/19/24 07:21 08/19/24 03:46 08/19/24 07:21 08/18/24 21:39 08/19/24 07:21
Lab Results - Hematology
08/17/24 08/18/24 08/19/24
04:34 04:33 05:58
WBC 8.2 8.2 7.9
Lab Results - Chemistry
08/17/24 08/17/24 08/18/24
04:34 13:03 04:33
BUN 19 H 19 H 19 H
Creatinine 0.9 1.0 0.8
Estimated Creat Clear 69 61 76
08/19/24
05:58
BUN 18 H
Creatinine 0.9
Estimated Creat Clear 68
Lab Results - Urine
08/18/24
10:54
Urine Nitrite Negative
Ur Leukocyte Esterase Negative
Urine WBC 3-5
Ur Squamous Epith Cells 0-2
Urine Bacteria Few A
Microbiology Results
08/16/24 03:21 Blood Culture - Preliminary
Blood/Venous No Growth in 72 hours- Final report to follow
08/16/24 03:21 Blood Culture - Preliminary
Blood/Venous No Growth in 72 hours- Final report to follow
08/12/24 07:45 Blood Culture - Final
Blood/Venous No Growth - Final Report
Therapeutic Drug Monitoring
Vancomycin Peak 28.7 ug/ml (18-26) H 08/16/24 13:57
Vancomycin Trough 16.1 ug/ml (5-20) 08/19/24 05:58
Random Vancomycin 15.8 ug/ml 08/16/24 03:21
--- NOTE | 2024-08-19 08:23 | W.PN.CD ---
Today's Communication / Plan
-
Continue diuresis.
Repeat tolvaptan at nephrology's discretion.
D/C loratidine and monitor urinary retention.
PT/OT.
Discharge planning for [facility].
Impression / Plan
-
Impression/Plan: 64 y/o female with PSVT, HTN and BRCA on chemotherapy admitted with complicated MSSA sepsis/bacteremia related to [place] and [place] mitral valve endocarditis, subsequently complicated by new diagnosis of atrial fibrillation and
embolic CVA (septic vs thombotic).
Senior Sales Operations Manager: Espinoza (for palps, AT/PSVT)
#Mitral valve endocarditis, mitral regurgitation:
-Acute.
-DONNELL 08/08/2024: LVEF 60-65%, mobile vegetation attached to the base of P1/P2 segment of MV (0.9 x 0.7 x 0.7 cm), mild MR.
-Status-post radical mitral valve repair [debridement of annulus, patch repair, annuloplasty with 30 mm band], open left sided maze procedure [cryoablation], LAAE [35 mm clip], Dr. Brian 08/10/24.
-Remains in sinus rhythm on telemetry.
-ABX per ID (vancomycin/daptomycin).
-Post TTE show mitral valve echodensity. Discussed with Dr. Brian. Unlikely vegetation given time course, possible thrombus from new valve architecture. Continue apixaban and repeat TTE in 30 days. If echo density remains, we will repeat a DONNELL
at that time.
-Continue routine post operative management, including amiodarone, metoprolol 12.5 mg BID.
-Incentive spirometry.
-Ambulate with therapy as much as possible. Planing for [facility].
#Hyponatremia
-Acute, hypo-osmolar.
-Serum osms 258, urine osms 306.
-Nephrology gave tolvaptan yesterday.
-Serum Na up to 128.
#Urinary retention
-New diagnosis.
-Continue bladder scans with intermittent straight cath.
-Likely medication induced. No obvious culprits - though antihistamines can cause urinary retention.
-D/C loratidine and monitor.
#Sepsis/MSSA bacteremia:
-Acute, due to port infection leading to mitral valve endocarditis.
-Port removed, MV repaired.
-Vancomycin (due to PCN allergy) per ID.
#Bi-hemispheric embolic stroke:
-Acute/subacute.
-Likely cardioembolic from MV vegetation.
-CT head negative for any hemorrhagic conversion.
-Therapeutic anticoagulation with apixaban.
#PAF, RVR:
-New diagnosis this admit.
-Rate/rhythm control with amiodarone and metoprolol.
-CHADS2-Vasc = 5 (HTN, Age x1, CVA x2, Female).
-S/P MAZE/CLAUDIA clip. Therapeutic anticoagulation with apixaban.
#Pancytopenia
-Chronic, iatrogenic.
-Per oncology, etiology thought to be more likely ongoing infection then chemotherapy though both could be contributing.
-Has not been thrombocytopenic in the past with chemo.
#Breast Ca, on chemo
#HTN
#Hx of PSVT (mechanism uncertain)
Subjective/Interval History:
Nephrology consulted for hyponatremia.
Serum osms low and urine osms 306.
Tolvaptan given.
Weight is down 1.6 kg.
SaO2 remains 96% on 2LNC (mostly for patient comfort).
Complaining of urinary retention.
DATA:
Cardiac Catheterization, 08/09/2024:
CONCLUSIONS
1. No obstructive coronary artery disease.
2. Elevated LVEDP at 20 mmHg.
3. No obstructive iliofemoral stenosis bilaterally.
Mitral Valve Repair, 08/10/2024:
Procedure(s) Performed:
1. Standard sternotomy with aortic and bicaval cannulation
2. Open left sided maze procedure [cryoablation]
3. Left atrial appendage exclusion [35 mm clip]
4. Radical mitral valve repair [debridement of annulus, patch repair, annuloplasty with 30 mm band]
5. Placement of temporary atrial ventricular pacing wires
6. Transesophageal echocardiographic
7. Rigid sternal fixation with plates
Echocardiogram, 08/15/2024:
CONCLUSIONS
TDS.
Normal-appearing LV size and function with no obvious wall motion
abnormalities.
LVEF is 55-60% by visual estimation.
Normal right ventricular size and function.
s/p mitral valve repair with 30 mm Annuloplasty ring. Mobile echo density is
seen on the posterior (View 36, 54, 55) and possible anterior mitral leaflet
(View 45). No significant stenosis or regurgitation.
Estimated pulmonary artery pressure of 33 mmHg assuming a right atrial pressure
of 3 mmHg.
Compared to intraoperative DONNELL and TTE from August 03, 2024, new echodensity seen
on mitral valve as above.
Ordering providers were made aware.
Physical Exam
Vital Signs/Labs
Vital Signs
Temp Pulse Resp BP Pulse Ox
36.6 C 78 16 101/68 96
08/19/24 07:21 08/19/24 08:00 08/19/24 07:21 08/19/24 07:21 08/19/24 07:21
08/17/24 08/18/24 08/19/24
11:59 11:59 11:59
Actual Weight 86.9 kg 88 kg 86.4 kg
08/19/24 05:58
08/19/24 05:58
PT 19.9 Sec (11.4-14.6) H 08/12/24 03:36
INR 1.67 08/12/24 03:36
APTT 34.3 Sec (23.4-35.0) 08/12/24 03:36
Magnesium 1.6 mg/dl (1.6-2.3) 08/18/24 04:33
Triglycerides 181 mg/dl (10-149) H 08/08/24 05:31
LDL Cholesterol, Calc 49 mg/dl 08/08/24 05:31
VLDL Cholesterol, Calc 36 mg/dl (0-30) H 08/08/24 05:31
HDL Cholesterol 22 mg/dl 08/08/24 05:31
Physical Exam
Constitutional: No acute distress and Comfortable
EENT: Anicteric and Moist mucous membranes
Cardiovascular: Rhythm & rate is regular, Pedal edema is absent, JVD pressure is normal, S1S2 is normal and Murmur/rub/gallop absent
Respiratory: Respiratory effort normal, Lungs clear to auscul., Wheeze Absent, Crackles Absent and Rhonchi Absent
GI: Soft, Distention absent, Flat, Non tender and Normal bowel sounds
Neuro/Psych: AO x 3
Data Reviewed
-
Date of Service: August 19, 2024
Medical Decision Making: Reviewed Test Results, Independent Historian Assessment and Test Interpretation
EKG: Tracing Personally Visualized and interpreted and Report Reviewed by me
Echo: Tracing Personally Visualized and interpreted and Report Reviewed by me
X-Ray/CT/US/MRI/NUC/PET: Image Personally Visualized and interpreted and Report Reviewed by me
Medical Tests (PFT, Pathology etc): Report Reviewed by me
Labs: Labs Reviewed by me
--- NOTE | 2024-08-19 08:55 | W.PN.CT ---
Today's Communication / Plan
-
-pod #9
-Na 128 today - got Tolvaptan on 08/18, started 1200 cc/day fluid restriction. Appreciate nephrology input
-Adair dcd 08/18 am - required straight cath x3 since (UO 2350+/4100+). Will start Flomax
-weak, requires 2 person assist for transfer to and from chair.
-got 1 pRBC on 08/17, followed by Lasix40 mg and 25% Albumin x3. UO 2325 in 12 hrs.
-Post TTE shows mitral valve echodensity- started on Eliquis on 08/16. Plans for repeat Echo in 2 weeks on Eliquis
-diarrhea resolved - had formed BM
-per ID, on iv Vanco through 09/22/24 and po Vanco through 09/26/24
-encourage IS (750 so far)
-continue PT/OT
-appreciate everyone's input
Assessment / Plan
-
- Mitral valve endocarditis- s/p Radical mitral valve repair [debridement of annulus, patch repair, annuloplasty with 30 mm band]; Open left sided maze procedure [cryoablation]; Left atrial appendage exclusion [35 mm clip] by Dr. Brian on 08/10/24,
pod #9
- Intraop DONNELL: LVEF was pre and post 60% with no new regional wall motion abnormalities. RV was normal size and function. After coming off cardiopulmonary bypass there was no residual leak and the mean gradient across the valve was 2. The left
atrial appendage was also opened up prior to ligation to ensure that there was no vegetations within it.
- Mitral valve endocarditis with embolic phenomenon and sepsis, moderate mitral valve insufficiency
- Multiple CVAs
- Acute metabolic encephalopathy
- Active breast cancer, on chemotherapy
- Chemotherapy induced diarrhea
- Multiple electrolyte imbalances
- Paroxysmal atrial fibrillation
- Immunocompromise
- Acute hypoxic respiratory failure
- Stage 1 obesity, BMI 31
- Acute postop blood loss anemia- s/p 4 pRBCs total (1 preop, 2 intraop and 1 postop)
- Acute postop coagulopathy/thrombocytopenia - s/p Factor 7, 3 platelets and 2 FFPs
- Acute postop atelectasis
- Acute postop hypovolemia with subsequent hypervolemia
- Acute postop diarrhea, C. difficile negative
- Acute postop hypokalemia
- Acute postop hypocalcemia
- Acute postop hypomagnesemia
- Acute postop hyponatremia -started 1200 fluid restriction
- Acute postop deconditioning
- Post TTE shows mitral valve echodensity- suspected thrombus - started on Eliquis on 08/16/24
- Acute postop mouth ulcers on 08/17/24- started Magic wash
Discussed patient care with: Nursing and Care Team
Subjective
-
Date of Service: August 19, 2024
Objective Data
-
Lab Results
08/19/24 05:58
08/19/24 05:58
PT 19.9 Sec (11.4-14.6) H 08/12/24 03:36
INR 1.67 08/12/24 03:36
APTT 34.3 Sec (23.4-35.0) 08/12/24 03:36
Vital Signs
Vital Signs
Temp Pulse Resp BP Pulse Ox
97.9 F 78 16 101/68 96
08/19/24 07:21 08/19/24 08:00 08/19/24 07:21 08/19/24 07:21 08/19/24 07:21
CT Intake/Output/Weight
08/18/24 08/19/24 08/19/24
18:59 06:59 18:59
Intake Total 800 / 1000 200 / 1000
Output Total 1750 / 4100 2350 / 4100
Balance -950 / -3100 -2150 / -3100
SaO2: 96
Physical Exam
-
General: Awake and AOx3
Cardiovascular: Regular rate & rhythm, No Murmurs and No Rub
Respiratory: Rales (at bases b/l. No wheeze)
Incision: Clean, Dry and Intact
Extremities: Edema +1 (1+ DPs b/l)
Abdomen: soft, nontender, nondistended
[2024-08-19] MEDS: MAGNESIUM OXIDE 500 MG PO ×2 (08:59→21:27)
[2024-08-19] MEDS: PROTONIX 40 MG PO (08:59)
[2024-08-19] MEDS: UROCIT-K 40 MEQ PO ×2 (08:59→16:50)
[2024-08-19] MEDS: ELIQUIS 5 MG PO ×2 (09:00→21:26)
[2024-08-19] MEDS: LIDOCAINE 4% PATCH 1 PATCH TOPICAL (09:00)
[2024-08-19] MEDS: FIRVANQ 125 MG PO (09:00)
[2024-08-19] MEDS: FLOMAX 0.4 MG PO (09:00)
[2024-08-19] MEDS: TOPROL XL 25 MG PO (09:00)
[2024-08-19] MEDS: NEURONTIN 100 MG PO ×3 (09:00→21:26)
[2024-08-19] MEDS: PACERONE 200 MG PO ×3 (09:00→21:26)
[2024-08-19] MEDS: CLARITIN 10 MG PO (09:00)
[2024-08-19] MEDS: LOW STRENGTH ASPIRIN 81 MG PO (09:00)
[2024-08-19] MEDS: VISBIOME 1 CAP PO (09:18)
[2024-08-19] MEDS: IMODIUM PO (09:22)
--- NOTE | 2024-08-19 12:07 | W.PN.ID1 ---
Date of Service
Date of Service: August 19, 2024
Today's Communication
Continue IV Vanco through 09/22/24.
Continue ppx po vanco through 09/26/24
Assessment / Plan
# [place] MV infective endocarditis cardio-embolic CVA/acute left vision loss
# Complicated Staphylococcus aureus (MSSA) bacteremia (13 sets of Bcx's);
# Catheter associated bloodstream infection from port, present on admission.
# Multiple antibiotic allergies including penicillin, cephalosporins, sulfa, cipro
# R Breast cancer - adjuvant chemotherapy on hold
-08/04 s/p port removed, cath tip MSSA
- bcx's cleared from 08/10 forward
-08/10 s/p open radical mitral valve repair debridement of annulus, patch repair, annuloplasty with 30 mm band
-08/10 MV tissue cx: MSSA
- Continue IV Vancomycin 1000 mg IV q24 x 6 weeks from OR, ie. through 09/21/24
If [facility], Pharmacy will continue to follow Vanco levels and adjusts dosing as needed.
Follow weekly CBC/diff and CMP while on IV Vancomycin.
Infusion sheet submitted to Collections Assistant.
# Stool C. diff Ag+, toxin neg = colonization
On prophylactic Vancomycin 125mg po daily through 09/26/24.
����������������������������������������������������������
Chief Complaint
-: Bacteremia and Other (endocarditis)
Subjective / Review of Systems
Feeling stronger.
Failing voiding trial.
No return of left vision yet.
Vital Signs / Physical Exam
Vital Signs
Vital Signs
Temp Pulse Resp BP Pulse Ox
97.7 F 78 18 101/68 92
08/19/24 11:49 08/19/24 08:00 08/19/24 11:49 08/19/24 07:21 08/19/24 11:49
Physical Exam
Constitutional: No Acute Distress and Comfortable
Eyes: No Conjunctival Hemorrhage and Sclera Anicteric
Cardiovascular: Regular Rate and S1/S2
Pulmonary: Clear
Gastrointestinal: Soft, Non Tender, Non Distended and Normal Bowel Sounds
Extremities: Negative Edema
Neurological: AO x 3
Lines: PICC (RUE)
Objective Data
Lab Data
Lab Results
08/19/24 05:58
08/19/24 05:58
PT 19.9 Sec (11.4-14.6) H 08/12/24 03:36
INR 1.67 08/12/24 03:36
APTT 34.3 Sec (23.4-35.0) 08/12/24 03:36
Estimated Creat Clear 68 ml/min 08/19/24 05:58
Lactic Acid Cancelled 08/03/24 12:03
Total Bilirubin 0.9 mg/dl (0.2-1.3) 08/09/24 04:34
AST 42 U/L (14-36) H 08/09/24 04:34
ALT 38 U/L (0-35) H 08/09/24 04:34
Alkaline Phosphatase 118 U/L (38-126) 08/09/24 04:34
Most recent labs reviewed.
Micro Results:
08/16/24 03:21 Blood Culture - Preliminary
Blood/Venous No Growth in 72 hours- Final report to follow
08/16/24 03:21 Blood Culture - Preliminary
Blood/Venous No Growth in 72 hours- Final report to follow
08/12/24 07:45 Blood Culture - Final
Blood/Venous No Growth - Final Report
08/11/24 04:12 Blood Culture - Final
Blood/Venous No Growth - Final Report
08/09/24 04:34 Blood Culture - Final
Blood/Venous S aureus-Methicillin Sensitive
Gram Stain - Final
08/10/24 04:52 Blood Culture - Final
Blood/Venous No Growth - Final Report
08/08/24 05:31 Blood Culture - Final
Blood/Venous S aureus-Methicillin Sensitive
Gram Stain - Final
08/07/24 09:52 Blood Culture - Final
Blood/Venous S aureus-Methicillin Sensitive
Gram Stain - Final
08/06/24 03:49 Blood Culture - Final
Blood/Venous S aureus-Methicillin Sensitive
Gram Stain - Final
08/06/24 03:30 Blood Culture - Final
Blood/Venous S aureus-Methicillin Sensitive
Gram Stain - Final
08/05/24 09:33 Blood Culture - Final
Blood/Venous S aureus-Methicillin Sensitive
Gram Stain - Final
08/10/24 13:45 Tissue Culture - Final
Tissue S aureus-Methicillin Sensitive
Gram Stain - Final
08/04/24 04:17 Blood Culture - Final
Blood/Venous S aureus-Methicillin Sensitive
Gram Stain - Final
08/05/24 09:21 Blood Culture - Final
Blood/Venous S aureus-Methicillin Sensitive
Gram Stain - Final
08/04/24 04:17 Blood Culture - Final
Blood/Venous S aureus-Methicillin Sensitive
Gram Stain - Final
08/03/24 22:57 Salmonella/Shigella Culture - Final
Feces/Stool No Salmonella, Shigella, Aeromonas or Plesiomonas species
isolated.
Campylobacter Culture - Final
No Campylobacter species isolated.
Shiga Toxin Test - Final
No E. coli Shiga Toxin 1 or 2 detected.
Stool Leukocytes - Final
08/04/24 08:18 Catheter Tip Culture - Final
Catheter Tip S aureus-Methicillin Sensitive
08/02/24 20:31 Blood Culture - Final
Blood/Venous S aureus-Methicillin Sensitive
Gram Stain - Final
08/03/24 21:45 Urine Culture - Final
Urine S aureus-Methicillin Sensitive
08/02/24 20:28 Urine Culture - Final
Urine S aureus-Methicillin Sensitive
08/02/24 20:27 Blood Culture - Final
Blood/Venous S aureus-Methicillin Sensitive
Gram Stain - Final
08/02/24 20:51 Blood Culture - Final
Blood/Venous S aureus-Methicillin Sensitive
Gram Stain - Final
08/03/24 22:57 C. difficile GDH Antigen & Toxins - Final
Feces/Stool C. difficile antigen positive, toxin negative.
Clostridium difficile present, but toxin not detected.
Patient may be a carrier, colonized with nontoxinogenic
strain or the level of toxin in sample is below detection
limits. This information should be used in conjunction with
the patient's clinical history.
- Final
Negative for Norovirus GI and GII.
08/02/24 20:39 Influenza Types A & B (DAHLIA) - Final
Nasal Swab Negative for Influenza A & B, NAAT
Negative results must be combined with clinical observations
and patient history.
Nucleic Acid Amplification test (NAAT)performed on the
[employer] technology platform.
08/08/24 Brain MRI: Several tiny foci of nonhemorrhagic acute/subacute infarcts within the bilateral centrum semiovale/periventricular regions and right cerebellum.
08/02/24 CXR: Probable infectious/inflammatory pneumonitis.
[2024-08-19] MEDS: LASIX 40 MG PO (12:20)
--- NOTE | 2024-08-19 13:04 | W.PN.NEPH.PH ---
Today's Communication / Plan
-
Samsca
Assessment/Plan
-
IMP:
Mitral valve endocarditis- s/p Radical mitral valve repair 08/10/24
Hyponatremia
Embolic Multiple CVAs
MSSA bacteremia, sepsis
Active breast cancer, on chemotherapy
Chemotherapy induced diarrhea-resolved
Paroxysmal atrial fibrillation
Stage 1 obesity, BMI 31
pancytopenia
Anemia
Hypomagnesemia
Urine retention
plan:
A/w sepsis, MSSA bacteremia, IE M valve s/p repair
hyponatremia despite diuresis-hypervolemic
follow bladder scan, may need reinsert peña if fails
cotn lasix
Improved sodium with Samsca yesterday
Will give another dose today
d/w pt
d/w nursing
-
-
Date of Service: August 19, 2024
CC / HPI / ROS
-
Chief Complaint:
Septic shock
History of Present Illness:
Endocarditis, CHF with hyponatremia
Review of Systems:
Lower extremity edema.
Mild shortness of breath decreased urine output
Labs
-
Labs:
WBC 7.9 10^3/uL (4.8-10.8) 08/19/24 05:58
RBC 2.71 10^6/uL (4.20-5.40) L 08/19/24 05:58
Hgb 8.9 g/dL (12.0-16.0) L 08/19/24 05:58
Hct 24.9 % (37.0-47.0) L 08/19/24 05:58
Plt Count 143 10^3/uL (130-400) 08/19/24 05:58
Sodium 128 mmol/L (135-145) L 08/19/24 05:58
Potassium 4.1 mmol/L (3.5-5.1) 08/19/24 05:58
Chloride 95 mmol/L (98-107) L 08/19/24 05:58
Carbon Dioxide 32 mmol/L (22-30) H 08/19/24 05:58
BUN 18 mg/dl (7-17) H 08/19/24 05:58
Creatinine 0.9 mg/dL (0.6-1.0) 08/19/24 05:58
eGFR > 60.00 08/19/24 05:58
Glucose 96 mg/dl (70-99) 08/19/24 05:58
Calcium 7.7 mg/dl (8.4-10.2) L 08/19/24 05:58
Phosphorus 2.9 mg/dl (2.5-4.5) 08/08/24 05:31
Albumin 2.7 g/dl (3.5-5.0) L 08/09/24 04:34
Physical Exam
-
Vital Signs:
Vital Signs
Temp Pulse Resp BP Pulse Ox
97.7 F 78 18 107/70 92
08/19/24 11:49 08/19/24 08:00 08/19/24 11:49 08/19/24 12:20 08/19/24 11:49
Respiratory:: Bilateral: Coarse and Bilateral: Rales
Lung Excursion:: Normal
Abdomen:: Soft
Bowel Sounds:: Normal
Extremity Edema:: +2: Bilateral:
[2024-08-19] MEDS: SAMSCA 15 MG PO (13:38)
--- NOTE | 2024-08-19 14:13 | CM ---
Addendum entered by Tahira Hopper RN 08/19/24 15:44:
If authorization is approved on Thursday, call Krystal at [phone]. If not patient will go to [facility] on Thursday.
Original Note:
Chart reviewed. Patient is independent of ADLS, lives with her in a 2 [address], 5 IHSAN, 0 DME. PT/OT recommending Acute Rehab. Physiatry recommended Acute. Patient agreeable to [facility]. Referral sent. Referral sent to [facility] for IV
antibiotics treatment post. Patient's [employer] PP covers the IV antibiotics 100%. Preauthorization started with [employer]. Reference# [id number]. [facility] insurance approval.
[2024-08-19] MEDS: NSS IV (16:44)
[2024-08-19] MEDS: ATIVAN 0.5 MG PO ×2 (21:27→21:29)
[2024-08-19 22:11] LABS: Glucose - Point of Care 146 mg/dl (70-99)
[2024-08-20] VITALS (9 sets, daily range): BP systolic 92–120; BP diastolic 53–78; PULSE 87
--- NOTE | 2024-08-20 01:18 | W.PN.CT ---
Addendum entered and electronically signed by Kwaku Boogie MD 08/20/24 09:21:
I saw and examined the patient.
The PA's note was reviewed and I agree with the note.
Comment:
POD#10 s/p MVRp, MAZE, ELAA for MV endocarditis
Continue current meds/abx/Eliquis.
D/C for [facility] when available
Repeat echo in 2 weeks
Original Note:
Today's Communication / Plan
-
-pod #10
-she is in good spirits, says that she is ready to go to rehab
-Na 137 today - got Tolvaptan on 08/18 and 08/19, started 1200 cc/day fluid restriction. Appreciate nephrology input
-Adair dcd 08/18 am and reinserted 08/19 for urinary retention. Flomax started
-currently, on Lasix 40 po daily. Decreased KCL to 20 qd. Hold K if holding Lasix
-weak, requires 2 person assist for transfer to and from chair.
-got 1 pRBC on 08/17, followed by Lasix40 mg and 25% Albumin x3.
-Post TTE shows mitral valve echodensity- started on Eliquis on 08/16. Plans for repeat Echo in 2 weeks on Eliquis
-diarrhea resolved - had formed BM
-per ID, on iv Vanco through 09/22/24 and po Vanco through 09/26/24
-encourage IS
-continue PT/OT
-appreciate everyone's input
-waiting for bed at [facility] and insurance approval
Assessment / Plan
-
- Mitral valve endocarditis- s/p Radical mitral valve repair [debridement of annulus, patch repair, annuloplasty with 30 mm band]; Open left sided maze procedure [cryoablation]; Left atrial appendage exclusion [35 mm clip] by Dr. Brian on 08/10/24,
pod #10
- Intraop DONNELL: LVEF was pre and post 60% with no new regional wall motion abnormalities. RV was normal size and function. After coming off cardiopulmonary bypass there was no residual leak and the mean gradient across the valve was 2. The left
atrial appendage was also opened up prior to ligation to ensure that there was no vegetations within it.
- Mitral valve endocarditis with embolic phenomenon and sepsis, moderate mitral valve insufficiency
- Multiple CVAs
- Acute metabolic encephalopathy
- Active breast cancer, on chemotherapy
- Chemotherapy induced diarrhea
- Multiple electrolyte imbalances
- Paroxysmal atrial fibrillation
- Immunocompromise
- Acute hypoxic respiratory failure
- Stage 1 obesity, BMI 31
- Acute postop blood loss anemia- s/p 4 pRBCs total (1 preop, 2 intraop and 1 postop)
- Acute postop coagulopathy/thrombocytopenia - s/p Factor 7, 3 platelets and 2 FFPs
- Acute postop atelectasis
- Acute postop hypovolemia with subsequent hypervolemia
- Acute postop diarrhea, C. difficile negative
- Acute postop hypokalemia
- Acute postop hypocalcemia
- Acute postop hypomagnesemia
- Acute postop hyponatremia -started 1200 fluid restriction
- Acute postop deconditioning
- Post TTE shows mitral valve echodensity- suspected thrombus - started on Eliquis on 08/16/24
- Acute postop mouth ulcers on 08/17/24- started Magic wash
Discussed patient care with: Nursing and Care Team
Subjective
-
Date of Service: August 20, 2024
Objective Data
-
Lab Results
08/19/24 05:58
PT 19.9 Sec (11.4-14.6) H 08/12/24 03:36
INR 1.67 08/12/24 03:36
APTT 34.3 Sec (23.4-35.0) 08/12/24 03:36
Vital Signs
Vital Signs
Temp Pulse Resp BP Pulse Ox
97.3 F 82 20 112/70 93
08/19/24 22:58 08/19/24 23:00 08/19/24 22:58 08/19/24 22:13 08/19/24 22:58
CT Intake/Output/Weight
08/19/24 08/19/24 08/20/24
06:59 18:59 06:59
Intake Total 200 / 1000
Output Total 2350 / 4100 2700 / 4400 1700 / 4400
Balance -2150 / -3100 -2700 / -4400 -1700 / -4400
SaO2: 93
Physical Exam
-
General: Awake and AOx3
Cardiovascular: Regular rate & rhythm, No Murmurs and No Rub
Respiratory: Rales (at bases b/l. No wheeze)
Incision: Clean, Dry and Intact
Abdomen: soft, nontender, nondistended
Extremities: Edema +1 (1+ DPs b/l)
Data Reviewed
-
Lab Results: Results Reviewed
Medications: Active Meds Reviewed
Chest X-Ray: Report Reviewed and Image Reviewed
ECG: Report Reviewed and Image Reviewed
--- NOTE | 2024-08-20 02:14 | PTCARENOTE ---
Assumed care of the pt @ 1900. Pt is AAOx3 at bedside. SR on the monitor VSS 93% on RA RUE PICC peña draining clear yellow. Complete bed bath with CHG solution done peña care given. Pt refused turns at times this shift. Call lopez within
reach.
[2024-08-20] MEDS: DESENEX/MITRAZOL/ZEASORB 1 APPLIC TOPICAL ×3 (03:45→20:00)
[2024-08-20] MEDS: SYNTHROID 50 MCG PO (04:22)
[2024-08-20] MEDS: TYLENOL 1000 MG PO ×3 (04:22→21:28)
[2024-08-20 05:02] LABS: Blood Urea Nitrogen 18 mg/dl (7-17); Calcium 8.1 mg/dl (8.4-10.2); Carbon Dioxide 34 mmol/L (22-30); Chloride 101 mmol/L (98-107); Estimated Creatinine Clearance 61 ml/min; Glucose 110 mg/dl (70-99); Magnesium 1.7 mg/dl (1.6-2.3); Potassium 4.4 mmol/L (3.5-5.1); Sodium 137 mmol/L (135-145); eGFR > 60.00
--- NOTE | 2024-08-20 08:20 | PTCARENOTE ---
Assumed care of pt from prev nsg shift; Pt AAOX3 w/no c/o CP or SOB. Pt c/o back pain this AM, lidocaine patch applied as ordered. Pt's VSS w/HR in the 80's & BP 114/72 this AM. Pt is SR w/occas PVC's on telemetry monitoring. Pt awaiting breakfast
before taking scheduled meds this AM. Pt's spouse at bedside. Pt w/call lopez within reach & no addtl needs at this time.
--- NOTE | 2024-08-20 09:06 | W.PN.ID1 ---
Date of Service
Date of Service: August 20, 2024
Today's Communication
Continue abx
Assessment / Plan
# [place] MV infective endocarditis with cardio-embolic CVA/acute left vision loss
# Complicated Staphylococcus aureus (MSSA) bacteremia (13 sets of Bcx's);
# Catheter associated bloodstream infection from port, present on admission.
# Multiple antibiotic allergies including penicillin, cephalosporins, sulfa, cipro
# R Breast cancer - adjuvant chemotherapy on hold
-08/04 s/p port removed, cath tip MSSA
- bcx's cleared from 08/10 forward
-08/10 s/p open radical mitral valve repair debridement of annulus, patch repair, annuloplasty with 30 mm band
-08/10 MV tissue cx: MSSA
--> Continue IV Vancomycin 1000 mg IV q24 x 6 weeks from OR, ie. through 09/21/24
For transfer to [facility], Pharmacy will continue to follow Vanco levels and adjusts dosing as needed.
Follow weekly CBC/diff and CMP while on IV Vancomycin.
Infusion sheet submitted to Tracer Bullet Section Supervisor.
# Stool C. diff Ag+, toxin neg = colonization
On prophylactic Vancomycin 125mg po daily through 09/26/24.
����������������������������������������������������������
Chief Complaint
-: Bacteremia and Other (endocarditis)
Subjective / Review of Systems
Review of Systems: No Fever and No Chills
Vital Signs / Physical Exam
Vital Signs
Vital Signs
Temp Pulse Resp BP Pulse Ox
98.9 F 86 16 114/72 88
08/20/24 08:05 08/20/24 08:05 08/20/24 08:05 08/20/24 08:05 08/20/24 08:05
Physical Exam
Constitutional: No Acute Distress and Comfortable
Eyes: No Conjunctival Hemorrhage and Sclera Anicteric
Cardiovascular: Regular Rate and S1/S2
Pulmonary: Clear
Gastrointestinal: Soft, Non Tender, Non Distended and Normal Bowel Sounds
Extremities: Negative Edema
Neurological: AO x 3
Lines: PICC (RUE)
Objective Data
Lab Data
Lab Results
08/19/24 05:58
08/20/24 03:25
PT 19.9 Sec (11.4-14.6) H 08/12/24 03:36
INR 1.67 08/12/24 03:36
APTT 34.3 Sec (23.4-35.0) 08/12/24 03:36
Estimated Creat Clear 61 ml/min 08/20/24 03:25
Lactic Acid Cancelled 08/03/24 12:03
Total Bilirubin 0.9 mg/dl (0.2-1.3) 08/09/24 04:34
AST 42 U/L (14-36) H 08/09/24 04:34
ALT 38 U/L (0-35) H 08/09/24 04:34
Alkaline Phosphatase 118 U/L (38-126) 08/09/24 04:34
Most recent labs reviewed.
Micro Results:
08/16/24 03:21 Blood Culture - Preliminary
Blood/Venous No Growth in 4 days- Final report to follow
08/16/24 03:21 Blood Culture - Preliminary
Blood/Venous No Growth in 4 days- Final report to follow
08/12/24 07:45 Blood Culture - Final
Blood/Venous No Growth - Final Report
08/11/24 04:12 Blood Culture - Final
Blood/Venous No Growth - Final Report
08/09/24 04:34 Blood Culture - Final
Blood/Venous S aureus-Methicillin Sensitive
Gram Stain - Final
08/10/24 04:52 Blood Culture - Final
Blood/Venous No Growth - Final Report
08/08/24 05:31 Blood Culture - Final
Blood/Venous S aureus-Methicillin Sensitive
Gram Stain - Final
08/07/24 09:52 Blood Culture - Final
Blood/Venous S aureus-Methicillin Sensitive
Gram Stain - Final
08/06/24 03:49 Blood Culture - Final
Blood/Venous S aureus-Methicillin Sensitive
Gram Stain - Final
08/06/24 03:30 Blood Culture - Final
Blood/Venous S aureus-Methicillin Sensitive
Gram Stain - Final
08/05/24 09:33 Blood Culture - Final
Blood/Venous S aureus-Methicillin Sensitive
Gram Stain - Final
08/10/24 13:45 Tissue Culture - Final
Tissue S aureus-Methicillin Sensitive
Gram Stain - Final
08/04/24 04:17 Blood Culture - Final
Blood/Venous S aureus-Methicillin Sensitive
Gram Stain - Final
08/05/24 09:21 Blood Culture - Final
Blood/Venous S aureus-Methicillin Sensitive
Gram Stain - Final
08/04/24 04:17 Blood Culture - Final
Blood/Venous S aureus-Methicillin Sensitive
Gram Stain - Final
08/03/24 22:57 Salmonella/Shigella Culture - Final
Feces/Stool No Salmonella, Shigella, Aeromonas or Plesiomonas species
isolated.
Campylobacter Culture - Final
No Campylobacter species isolated.
Shiga Toxin Test - Final
No E. coli Shiga Toxin 1 or 2 detected.
Stool Leukocytes - Final
08/04/24 08:18 Catheter Tip Culture - Final
Catheter Tip S aureus-Methicillin Sensitive
08/02/24 20:31 Blood Culture - Final
Blood/Venous S aureus-Methicillin Sensitive
Gram Stain - Final
08/03/24 21:45 Urine Culture - Final
Urine S aureus-Methicillin Sensitive
08/02/24 20:28 Urine Culture - Final
Urine S aureus-Methicillin Sensitive
08/02/24 20:27 Blood Culture - Final
Blood/Venous S aureus-Methicillin Sensitive
Gram Stain - Final
08/02/24 20:51 Blood Culture - Final
Blood/Venous S aureus-Methicillin Sensitive
Gram Stain - Final
08/03/24 22:57 C. difficile GDH Antigen & Toxins - Final
Feces/Stool C. difficile antigen positive, toxin negative.
Clostridium difficile present, but toxin not detected.
Patient may be a carrier, colonized with nontoxinogenic
strain or the level of toxin in sample is below detection
limits. This information should be used in conjunction with
the patient's clinical history.
- Final
Negative for Norovirus GI and GII.
08/02/24 20:39 Influenza Types A & B (DAHLIA) - Final
Nasal Swab Negative for Influenza A & B, NAAT
Negative results must be combined with clinical observations
and patient history.
Nucleic Acid Amplification test (NAAT)performed on the
[employer] platform.
Imaging:
08/08/24 Brain MRI: Several tiny foci of nonhemorrhagic acute/subacute infarcts within the bilateral centrum semiovale/periventricular regions and right cerebellum.
08/02/24 CXR: Probable infectious/inflammatory pneumonitis.
[2024-08-20] MEDS: ELIQUIS 5 MG PO ×2 (10:14→20:00)
[2024-08-20] MEDS: NEURONTIN 100 MG PO ×3 (10:14→21:29)
[2024-08-20] MEDS: FLUSH (NSS) 2 FLUSH IV (10:14)
[2024-08-20] MEDS: MAGNESIUM OXIDE 500 MG PO ×2 (10:14→20:00)
[2024-08-20] MEDS: LASIX 40 MG PO (10:14)
[2024-08-20] MEDS: TOPROL XL 25 MG PO (10:14)
[2024-08-20] MEDS: LIDOCAINE 4% PATCH 1 PATCH TOPICAL (10:15)
[2024-08-20] MEDS: VISBIOME 1 CAP PO (10:15)
[2024-08-20] MEDS: IMODIUM 2 MG PO (10:15)
[2024-08-20] MEDS: LOW STRENGTH ASPIRIN 81 MG PO (10:15)
[2024-08-20] MEDS: PROTONIX 40 MG PO (10:15)
[2024-08-20] MEDS: PACERONE 200 MG PO ×3 (10:15→21:28)
[2024-08-20] MEDS: FLOMAX 0.4 MG PO (10:16)
[2024-08-20] MEDS: VANCOCIN 200 IV (10:16)
[2024-08-20] MEDS: FIRVANQ 125 MG PO (11:06)
[2024-08-20] MEDS: MAGIC OR MIRACLE MOUTHWASH 10 ML PO ×2 (11:07→22:10)
--- NOTE | 2024-08-20 12:12 | W.PN.CD ---
Today's Communication / Plan
-
continue eliquis
rehab evaluation
Impression / Plan
-
Impression/Plan: 64 y/o female with PSVT, HTN and BRCA on chemotherapy admitted with complicated MSSA sepsis/bacteremia related to port tip and nisqually mitral valve endocarditis, subsequently complicated by new diagnosis of atrial fibrillation and
embolic CVA (septic vs thombotic).
Process Validation Engineer: Espinoza (for palps, AT/PSVT)
#Mitral valve endocarditis, mitral regurgitation:
-DONNELL 08/08/2024: LVEF 60-65%, mobile vegetation attached to the base of P1/P2 segment of MV (0.9 x 0.7 x 0.7 cm), mild MR.
-Status-post radical mitral valve repair [debridement of annulus, patch repair, annuloplasty with 30 mm band], open left sided maze procedure [cryoablation], LAAE [35 mm clip], Dr. Brian 08/10/24.
-Remains in sinus rhythm on telemetry.
-ABX per ID (vancomycin/daptomycin).
-Post TTE show mitral valve echodensity. Discussed with Dr. Brian. Unlikely vegetation given time course, possible thrombus from new valve architecture. Continue apixaban and repeat TTE in 30 days. If echo density remains, we will repeat a DONNELL
at that time.
-Continue routine post operative management, including amiodarone, metoprolol 12.5 mg BID.
-Incentive spirometry.
-Ambulate with therapy as much as possible. Planing for [facility].
#Hyponatremia
-Nephrology gave tolvaptan with improvement
#Urinary retention
-D/C loratidine and monitor.
#Sepsis/MSSA bacteremia:
-Acute, due to port infection leading to mitral valve endocarditis.
-Port removed, MV repaired.
-Vancomycin (due to PCN allergy) per ID.
#Bi-hemispheric embolic stroke:
-Acute/subacute.
-Likely cardioembolic from MV vegetation.
-CT head negative for any hemorrhagic conversion.
-Therapeutic anticoagulation with apixaban.
#PAF, RVR:
-New diagnosis this admit.
-Rate/rhythm control with amiodarone and metoprolol.
-CHADS2-Vasc = 5 (HTN, Age x1, CVA x2, Female).
-S/P MAZE/CLAUDIA clip. Therapeutic anticoagulation with apixaban.
#Pancytopenia
-Chronic, iatrogenic.
-Per oncology, etiology thought to be more likely ongoing infection then chemotherapy though both could be contributing.
-Has not been thrombocytopenic in the past with chemo.
#Breast Ca, on chemo
#HTN
#Hx of PSVT (mechanism uncertain)
DATA:
Cardiac Catheterization, 08/09/2024:
CONCLUSIONS
1. No obstructive coronary artery disease.
2. Elevated LVEDP at 20 mmHg.
3. No obstructive iliofemoral stenosis bilaterally.
Mitral Valve Repair, 08/10/2024:
Procedure(s) Performed:
1. Standard sternotomy with aortic and bicaval cannulation
2. Open left sided maze procedure [cryoablation]
3. Left atrial appendage exclusion [35 mm clip]
4. Radical mitral valve repair [debridement of annulus, patch repair, annuloplasty with 30 mm band]
5. Placement of temporary atrial ventricular pacing wires
6. Transesophageal echocardiographic
7. Rigid sternal fixation with plates
Echocardiogram, 08/15/2024:
CONCLUSIONS
TDS.
Normal-appearing LV size and function with no obvious wall motion
abnormalities.
LVEF is 55-60% by visual estimation.
Normal right ventricular size and function.
s/p mitral valve repair with 30 mm Annuloplasty ring. Mobile echo density is
seen on the posterior (View 36, 54, 55) and possible anterior mitral leaflet
(View 45). No significant stenosis or regurgitation.
Estimated pulmonary artery pressure of 33 mmHg assuming a right atrial pressure
of 3 mmHg.
Compared to intraoperative DONNELL and TTE from August 03, 2024, new echodensity seen
on mitral valve as above.
Ordering providers were made aware.
Physical Exam
Vital Signs/Labs
Vital Signs
Temp Pulse Resp BP Pulse Ox
98.9 F 88 16 120/78 96
08/20/24 08:05 08/20/24 11:11 08/20/24 11:11 08/20/24 11:11 08/20/24 11:11
08/19/24 08/20/24 08/21/24
06:59 06:59 06:59
Actual Weight 86.4 kg
08/19/24 05:58
08/20/24 03:25
PT 19.9 Sec (11.4-14.6) H 08/12/24 03:36
INR 1.67 08/12/24 03:36
APTT 34.3 Sec (23.4-35.0) 08/12/24 03:36
Magnesium 1.7 mg/dl (1.6-2.3) 08/20/24 03:25
Triglycerides 181 mg/dl (10-149) H 08/08/24 05:31
LDL Cholesterol, Calc 49 mg/dl 08/08/24 05:31
VLDL Cholesterol, Calc 36 mg/dl (0-30) H 08/08/24 05:31
HDL Cholesterol 22 mg/dl 08/08/24 05:31
Physical Exam
Constitutional: No acute distress
EENT: Moist mucous membranes
Cardiovascular: Rhythm & rate is regular, Pedal edema is absent, JVD pressure is normal and Systolic murmur absent
Respiratory: Respiratory effort normal and Lungs clear to auscul.
Neuro/Psych: AO x 3
Data Reviewed
-
Date of Service: August 20, 2024
EKG: Other (Tele: SR 80s)
Labs: Labs Reviewed by me
--- NOTE | 2024-08-20 12:57 | W.PN.NEPH.PH ---
Today's Communication / Plan
-
Will sign off please call if needed
Continue fluid restriction
Assessment/Plan
-
IMP:
Mitral valve endocarditis- s/p Radical mitral valve repair 08/10/24
Hyponatremia
Embolic Multiple CVAs
MSSA bacteremia, sepsis
Active breast cancer, on chemotherapy
Chemotherapy induced diarrhea-resolved
Paroxysmal atrial fibrillation
Stage 1 obesity, BMI 31
pancytopenia
Anemia
Hypomagnesemia
Urine retention
plan:
A/w sepsis, MSSA bacteremia, IE M valve s/p repair
hyponatremia despite diuresis-hypervolemic
follow bladder scan, may need reinsert peña if fails
cotn lasix
Sodium has normalized with Samsca
Continue with fluid restriction
Patient for rehab on Thursday
Will sign off
-
-
Date of Service: August 20, 2024
CC / HPI / ROS
-
Chief Complaint:
Septic shock
History of Present Illness:
Endocarditis, CHF with hyponatremia
Review of Systems:
Lower extremity edema.
Improved breathing
Labs
-
Labs:
WBC 7.9 10^3/uL (4.8-10.8) 08/19/24 05:58
RBC 2.71 10^6/uL (4.20-5.40) L 08/19/24 05:58
Hgb 8.9 g/dL (12.0-16.0) L 08/19/24 05:58
Hct 24.9 % (37.0-47.0) L 08/19/24 05:58
Plt Count 143 10^3/uL (130-400) 08/19/24 05:58
Sodium 137 mmol/L (135-145) D 08/20/24 03:25
Potassium 4.4 mmol/L (3.5-5.1) 08/20/24 03:25
Chloride 101 mmol/L (98-107) 08/20/24 03:25
Carbon Dioxide 34 mmol/L (22-30) H 08/20/24 03:25
BUN 18 mg/dl (7-17) H 08/20/24 03:25
Creatinine 1.0 mg/dL (0.6-1.0) 08/20/24 03:25
eGFR > 60.00 08/20/24 03:25
Glucose 110 mg/dl (70-99) H 08/20/24 03:25
Calcium 8.1 mg/dl (8.4-10.2) L 08/20/24 03:25
Phosphorus 2.9 mg/dl (2.5-4.5) 08/08/24 05:31
Albumin 2.7 g/dl (3.5-5.0) L 08/09/24 04:34
Physical Exam
-
Vital Signs:
Vital Signs
Temp Pulse Resp BP Pulse Ox
98.4 F 88 16 120/78 96
08/20/24 12:14 08/20/24 11:11 08/20/24 11:11 08/20/24 11:11 08/20/24 11:11
Respiratory:: Bilateral: Coarse
Lung Excursion:: Normal
Abdomen:: Soft
Bowel Sounds:: Normal
Extremity Edema:: +1: Bilateral:
[2024-08-20] MEDS: NSS IV (13:39)
[2024-08-20 14:20] LABS: Vancomycin Peak 27.8 ug/ml (18-26)
--- NOTE | 2024-08-20 14:38 | PHA.VAN.FU ---
Vancomycin Assessment / Plan
- Assessment
Renal Function: Stable
In the past 24 hrs, patient has been: Afebrile
Concomitant Antimicrobials: PO Vanc
- Assessment - Therapeutic Drug Monitoring
Extrapolated Cmax (mcg/mL): 27.8
Peak level was drawn: Appropriately
- Dosing Plan
Continue: vancomycin 1000 mg daily at 1000
- Monitoring Plan
[place]: [place] [address]/21/24
- Follow Up
Pharmacy will continue to follow.
Vancomycin Follow UP
- -
Patient Age: 64
Patient Sex: Female
Vancomycin Day #: 13
Indication: Endocarditis
Requesting Provider: Dr Roy
Pertinent Antimicrobial Allergies:
Cefprozil - hives
cephalosporins - unknown
Ciprofloxacin - unknown
Penicillins - hives
Trimethoprim / sulfamethoxazole (Bactrim) - hives
Height / Weight:
Height 5 ft 5 in
Actual Weight 86.4 kg
Pertinent Past Medical History: Breast cancer (port)
- Vital Signs / Lab Results
Temp Pulse Resp BP Pulse Ox
98.4 F 88 16 120/78 96
08/20/24 12:14 08/20/24 11:11 08/20/24 11:11 08/20/24 11:11 08/20/24 11:11
Lab Results - Hematology
08/18/24 08/19/24
04:33 05:58
WBC 8.2 7.9
Lab Results - Chemistry
08/18/24 08/19/24 08/20/24
04:33 05:58 03:25
BUN 19 H 18 H 18 H
Creatinine 0.8 0.9 1.0
Estimated Creat Clear 76 68 61
Microbiology Results
08/16/24 03:21 Blood Culture - Preliminary
Blood/Venous No Growth in 4 days- Final report to follow
08/16/24 03:21 Blood Culture - Preliminary
Blood/Venous No Growth in 4 days- Final report to follow
Therapeutic Drug Monitoring
Vancomycin Peak 27.8 ug/ml (18-26) H 08/20/24 13:50
Vancomycin Trough 16.1 ug/ml (5-20) 08/19/24 05:58
Random Vancomycin 15.8 ug/ml 08/16/24 03:21
--- NOTE | 2024-08-20 18:56 | PTCARENOTE ---
Discussed w/pt & family members re: fluid restrictions. The family brought in soup & beverages for the pt, despite explaining to the the pt & her sister about pt's 1200mL daily fluid restriction. Reiterated again to pt that the fluid restrictions
includes anything that is liquid like soups & ice & ice water that can become a liquid. Pt verbalized that she 'will speak with the dr about it'.
[2024-08-20] MEDS: ATIVAN 0.5 MG PO (22:09)
[2024-08-21] VITALS (9 sets, daily range): BP systolic 96–116; BP diastolic 59–82; PULSE 81; O2SAT 95; BMI 30.1
--- NOTE | 2024-08-21 | W.PN.CT ---
Addendum entered and electronically signed by Kwaku Boogie MD 08/21/24 10:00:
I saw and examined the patient.
The PA's note was reviewed and I agree with the note.
Comment:
Void trial today
Stop fluid restriction
Continue ABX
Echo in 2 weeks
D/C planning
Original Note:
Today's Communication / Plan
-
-pod #11
-no issues overnight
-Na 138 today - got Tolvaptan on 08/18 and 08/19, on 1200 cc/day fluid restriction. Appreciate nephrology input
-Adair dcd 08/18 am and reinserted 08/19 for urinary retention. Flomax started 08/20
-currently, on Lasix 40 po daily. Decreased KCL to 20 qd. Hold K if holding Lasix
-weak, requires 2 person assist for transfer to and from chair.
-got 1 pRBC on 08/17, followed by Lasix40 mg and 25% Albumin x3.
-Post TTE shows mitral valve echodensity- started on Eliquis on 08/16. Plans for repeat Echo in 2 weeks on Eliquis
-diarrhea resolved - had formed BM
-per ID, on iv Vanco through 09/22/24 and po Vanco through 09/26/24
-encourage IS
-continue PT/OT
-appreciate everyone's input
-waiting for bed at [facility] and insurance approval
Assessment / Plan
-
- Mitral valve endocarditis- s/p Radical mitral valve repair [debridement of annulus, patch repair, annuloplasty with 30 mm band]; Open left sided maze procedure [cryoablation]; Left atrial appendage exclusion [35 mm clip] by Dr. Brian on 08/10/24,
pod #11
- Intraop DONNELL: LVEF was pre and post 60% with no new regional wall motion abnormalities. RV was normal size and function. After coming off cardiopulmonary bypass there was no residual leak and the mean gradient across the valve was 2. The left
atrial appendage was also opened up prior to ligation to ensure that there was no vegetations within it.
- Mitral valve endocarditis with embolic phenomenon and sepsis, moderate mitral valve insufficiency
- Multiple CVAs
- Acute metabolic encephalopathy
- Active breast cancer, on chemotherapy
- Chemotherapy induced diarrhea
- Multiple electrolyte imbalances
- Paroxysmal atrial fibrillation
- Immunocompromise
- Acute hypoxic respiratory failure
- Stage 1 obesity, BMI 31
- Acute postop blood loss anemia- s/p 4 pRBCs total (1 preop, 2 intraop and 1 postop)
- Acute postop coagulopathy/thrombocytopenia - s/p Factor 7, 3 platelets and 2 FFPs
- Acute postop atelectasis
- Acute postop hypovolemia with subsequent hypervolemia
- Acute postop diarrhea, C. difficile negative
- Acute postop hypokalemia
- Acute postop hypocalcemia
- Acute postop hypomagnesemia
- Acute postop hyponatremia -started 1200 fluid restriction
- Acute postop deconditioning
- Post TTE shows mitral valve echodensity- suspected thrombus - started on Eliquis on 08/16/24
- Acute postop mouth ulcers on 08/17/24- started Magic wash
Discussed patient care with: Nursing and Care Team
Subjective
-
Date of Service: August 21, 2024
Objective Data
-
Lab Results
08/19/24 05:58
08/20/24 03:25
PT 19.9 Sec (11.4-14.6) H 08/12/24 03:36
INR 1.67 08/12/24 03:36
APTT 34.3 Sec (23.4-35.0) 08/12/24 03:36
Vital Signs
Vital Signs
Temp Pulse Resp BP Pulse Ox
98.4 F 84 17 102/60 94
08/20/24 23:40 08/20/24 21:28 08/20/24 23:40 08/20/24 21:28 08/20/24 23:40
CT Intake/Output/Weight
08/20/24 08/20/24 08/21/24
06:59 18:59 06:59
Intake Total 240 / 240 3060 / 3210 150 / 3210
Output Total 4900 / 7600 3250 / 4150 900 / 4150
Balance -4660 / -7360 -190 / -940 -750 / -940
SaO2: 94
Physical Exam
-
General: Awake and AOx3
Cardiovascular: Regular rate & rhythm, No Murmurs and No Rub
Respiratory: decreased breath sounds, Rales (at bases b/l. No wheeze)
Incision: Clean, Dry and Intact
Abdomen: soft, nontender, nondistended
Extremities: Edema trace (1+ DPs b/l)
Data Reviewed
-
Lab Results: Results Reviewed
Medications: Active Meds Reviewed
Chest X-Ray: Report Reviewed and Image Reviewed
ECG: Report Reviewed and Image Reviewed
[2024-08-21 05:12] LABS: Blood Urea Nitrogen 17 mg/dl (7-17); Calcium 7.7 mg/dl (8.4-10.2); Carbon Dioxide 30 mmol/L (22-30); Chloride 105 mmol/L (98-107); Estimated Creatinine Clearance 68 ml/min; Glucose 103 mg/dl (70-99); Magnesium 1.7 mg/dl (1.6-2.3); Potassium 4.1 mmol/L (3.5-5.1); Sodium 138 mmol/L (135-145); eGFR > 60.00
[2024-08-21] MEDS: TYLENOL 1000 MG PO ×3 (05:29→22:04)
[2024-08-21] MEDS: SYNTHROID 50 MCG PO (05:29)
--- NOTE | 2024-08-21 05:50 | PTCARENOTE ---
Pt NSR on monitor. VSS Denies pain or any discomfort. Reinforce education on fluid restriction with the pt and her family members. Call lopez in reach
--- NOTE | 2024-08-21 08:24 | W.PN.ID1 ---
Date of Service
Date of Service: August 21, 2024
Today's Communication
Continue antibiotics.
Assessment / Plan
# [place] MV infective endocarditis with cardio-embolic CVA/acute left vision loss
# Complicated Staphylococcus aureus (MSSA) bacteremia (13 sets of Bcx's);
# Catheter associated bloodstream infection from port, present on admission.
# Multiple antibiotic allergies including penicillin, cephalosporins, sulfa, cipro
# R Breast cancer - adjuvant chemotherapy on hold
- 08/04 s/p port removed, cath tip MSSA
- bcx's cleared from 08/10 forward
- 08/10 s/p open radical mitral valve repair debridement of annulus, patch repair, annuloplasty with 30 mm band
- 08/10 MV tissue cx: MSSA
--> Continue IV Vancomycin 1000 mg IV q24 x 6 weeks from OR, ie. through 09/21/24
For transfer to [facility]. Pharmacy will continue to follow Vanco levels and adjusts dosing as needed.
Follow weekly CBC/diff and CMP while on IV Vancomycin.
Infusion sheet submitted to Instrument Lens Grinder Apprentice.
# Stool C. diff Ag+, toxin neg = colonization
On prophylactic Vancomycin 125mg po daily through 09/26/24.
����������������������������������������������������������
Chief Complaint
-: Bacteremia and Other (endocarditis)
Subjective / Review of Systems
Review of Systems: No Fever and No Chills
Vital Signs / Physical Exam
Vital Signs
Vital Signs
Temp Pulse Resp BP Pulse Ox
98 F 84 20 102/59 92
08/21/24 08:01 08/21/24 08:01 08/21/24 08:01 08/21/24 08:01 08/21/24 08:01
Physical Exam
Constitutional: No Acute Distress and Comfortable
Cardiovascular: Regular Rate and S1/S2
Pulmonary: Clear and Non Labored; Negative Wheezes
Gastrointestinal: Soft, Non Tender, Non Distended and Normal Bowel Sounds
Extremities: Negative Edema
Neurological: AO x 3
Lines: PICC (RUE)
Objective Data
Lab Data
Lab Results
08/19/24 05:58
08/21/24 04:32
PT 19.9 Sec (11.4-14.6) H 08/12/24 03:36
INR 1.67 08/12/24 03:36
APTT 34.3 Sec (23.4-35.0) 08/12/24 03:36
Estimated Creat Clear 68 ml/min 08/21/24 04:32
Lactic Acid Cancelled 08/03/24 12:03
Total Bilirubin 0.9 mg/dl (0.2-1.3) 08/09/24 04:34
AST 42 U/L (14-36) H 08/09/24 04:34
ALT 38 U/L (0-35) H 08/09/24 04:34
Alkaline Phosphatase 118 U/L (38-126) 08/09/24 04:34
Most recent labs reviewed.
Micro Results:
08/16/24 03:21 Blood Culture - Final
Blood/Venous No Growth - Final Report
08/16/24 03:21 Blood Culture - Final
Blood/Venous No Growth - Final Report
08/12/24 07:45 Blood Culture - Final
Blood/Venous No Growth - Final Report
08/11/24 04:12 Blood Culture - Final
Blood/Venous No Growth - Final Report
08/09/24 04:34 Blood Culture - Final
Blood/Venous S aureus-Methicillin Sensitive
Gram Stain - Final
08/10/24 04:52 Blood Culture - Final
Blood/Venous No Growth - Final Report
08/08/24 05:31 Blood Culture - Final
Blood/Venous S aureus-Methicillin Sensitive
Gram Stain - Final
08/07/24 09:52 Blood Culture - Final
Blood/Venous S aureus-Methicillin Sensitive
Gram Stain - Final
08/06/24 03:49 Blood Culture - Final
Blood/Venous S aureus-Methicillin Sensitive
Gram Stain - Final
08/06/24 03:30 Blood Culture - Final
Blood/Venous S aureus-Methicillin Sensitive
Gram Stain - Final
08/05/24 09:33 Blood Culture - Final
Blood/Venous S aureus-Methicillin Sensitive
Gram Stain - Final
08/10/24 13:45 Tissue Culture - Final
Tissue S aureus-Methicillin Sensitive
Gram Stain - Final
08/04/24 04:17 Blood Culture - Final
Blood/Venous S aureus-Methicillin Sensitive
Gram Stain - Final
08/05/24 09:21 Blood Culture - Final
Blood/Venous S aureus-Methicillin Sensitive
Gram Stain - Final
08/04/24 04:17 Blood Culture - Final
Blood/Venous S aureus-Methicillin Sensitive
Gram Stain - Final
08/03/24 22:57 Salmonella/Shigella Culture - Final
Feces/Stool No Salmonella, Shigella, Aeromonas or Plesiomonas species
isolated.
Campylobacter Culture - Final
No Campylobacter species isolated.
Shiga Toxin Test - Final
No E. coli Shiga Toxin 1 or 2 detected.
Stool Leukocytes - Final
08/04/24 08:18 Catheter Tip Culture - Final
Catheter Tip S aureus-Methicillin Sensitive
08/02/24 20:31 Blood Culture - Final
Blood/Venous S aureus-Methicillin Sensitive
Gram Stain - Final
08/03/24 21:45 Urine Culture - Final
Urine S aureus-Methicillin Sensitive
08/02/24 20:28 Urine Culture - Final
Urine S aureus-Methicillin Sensitive
08/02/24 20:27 Blood Culture - Final
Blood/Venous S aureus-Methicillin Sensitive
Gram Stain - Final
08/02/24 20:51 Blood Culture - Final
Blood/Venous S aureus-Methicillin Sensitive
Gram Stain - Final
08/03/24 22:57 C. difficile GDH Antigen & Toxins - Final
Feces/Stool C. difficile antigen positive, toxin negative.
Clostridium difficile present, but toxin not detected.
Patient may be a carrier, colonized with nontoxinogenic
strain or the level of toxin in sample is below detection
limits. This information should be used in conjunction with
the patient's clinical history.
- Final
Negative for Norovirus GI and GII.
08/02/24 20:39 Influenza Types A & B (DAHLIA) - Final
Nasal Swab Negative for Influenza A & B, NAAT
Negative results must be combined with clinical observations
and patient history.
Nucleic Acid Amplification test (NAAT)performed on the
[employer] platform.
Imaging:
08/08/24 Brain MRI: Several tiny foci of nonhemorrhagic acute/subacute infarcts within the bilateral centrum semiovale/periventricular regions and right cerebellum.
08/02/24 CXR: Probable infectious/inflammatory pneumonitis.
[2024-08-21] MEDS: TOPROL XL 25 MG PO (08:56)
[2024-08-21] MEDS: DESENEX/MITRAZOL/ZEASORB 1 APPLIC TOPICAL ×2 (08:56→19:58)
[2024-08-21] MEDS: ELIQUIS 5 MG PO ×2 (08:57→19:58)
[2024-08-21] MEDS: MAGNESIUM OXIDE 500 MG PO ×2 (08:58→19:58)
[2024-08-21] MEDS: LOW STRENGTH ASPIRIN 81 MG PO (08:58)
[2024-08-21] MEDS: IMODIUM 2 MG PO (08:58)
[2024-08-21] MEDS: FLOMAX 0.4 MG PO (08:58)
[2024-08-21] MEDS: LASIX 40 MG PO (08:58)
[2024-08-21] MEDS: LIDOCAINE 4% PATCH 1 PATCH TOPICAL (08:58)
[2024-08-21] MEDS: PACERONE 200 MG PO ×3 (08:59→22:04)
[2024-08-21] MEDS: VISBIOME 1 CAP PO (08:59)
[2024-08-21] MEDS: UROCIT-K 20 MEQ PO (08:59)
[2024-08-21] MEDS: PROTONIX 40 MG PO (08:59)
[2024-08-21] MEDS: NEURONTIN 100 MG PO ×3 (08:59→22:04)
[2024-08-21] MEDS: FIRVANQ 125 MG PO (09:14)
--- NOTE | 2024-08-21 10:03 | PTCARENOTE ---
Assumed care of pt from prev nsg shift; Pt drowsy but easily arousable, AAOX3 w/no c/o CP or SOB. Pt's VSS w/HR in the 80's & BP 102/59 this AM. Pt is SR w/occas PVC's on telemetry monitoring. Pt's spouse at bedside but leaving this AM & will return
later in the day. 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 Discussed plan for the day-bed bath, peña care, & then OOB to . Pt agreeable to plan. Pt w/call lopez within reach & no addtl needs at this time.
--- NOTE | 2024-08-21 10:19 | PHA.VAN.FU ---
Vancomycin Assessment / Plan
- Assessment
Renal Function: Stable
WBC's are: WNL
In the past 24 hrs, patient has been: Afebrile
Concomitant Antimicrobials: PO Firvanq
- Assessment - Therapeutic Drug Monitoring
Extrapolated Cmax (mcg/mL): 30.1
Peak level was drawn: Appropriately
Extrapolated Cmin (mcg/mL): 14.7
Trough Drawn: Appropriately
Calculated AUC (mcg*h/mL): 517
Calculated ke: 0.0312
Calculated half life (H): 22.2
Calculated Vd (L): 62
Calculated Vanc CL (ml/min): 32.26
- Dosing Plan
Continue: vancomycin 1000 mg IV daily
- Monitoring Plan
Level(s) appropriate: Recheck trough at minimum of weekly intervals, Repeat sooner for changes in renal function or clinical status
- Follow Up
Pharmacy will continue to follow.
Vancomycin Follow UP
- -
Patient Age: 64
Patient Sex: Female
Vancomycin Day #: 14
Indication: Endocarditis
Requesting Provider: Dr Roy
Pertinent Antimicrobial Allergies:
Cefprozil - hives
cephalosporins - unknown
Ciprofloxacin - unknown
Penicillins - hives
Trimethoprim / sulfamethoxazole (Bactrim) - hives
Height / Weight:
Height 5 ft 5 in
Actual Weight 82 kg
Pertinent Past Medical History: Breast cancer (port)
- Vital Signs / Lab Results
Temp Pulse Resp BP Pulse Ox
98 F 84 20 116/72 92
08/21/24 08:01 08/21/24 08:01 08/21/24 08:01 08/21/24 08:58 08/21/24 08:01
Lab Results - Hematology
08/19/24
05:58
WBC 7.9
Lab Results - Chemistry
08/19/24 08/20/24 08/21/24
05:58 03:25 04:32
BUN 18 H 18 H 17
Creatinine 0.9 1.0 0.9
Estimated Creat Clear 68 61 68
Microbiology Results
08/16/24 03:21 Blood Culture - Final
Blood/Venous No Growth - Final Report
08/16/24 03:21 Blood Culture - Final
Blood/Venous No Growth - Final Report
Therapeutic Drug Monitoring
Vancomycin Peak 27.8 ug/ml (18-26) H 08/20/24 13:50
Vancomycin Trough 15.0 ug/ml (5-20) 08/21/24 09:36
Random Vancomycin 15.8 ug/ml 08/16/24 03:21
--- NOTE | 2024-08-21 10:22 | W.PN.CD ---
Today's Communication / Plan
-
continue eliquis
rehab planning
Impression / Plan
-
Impression/Plan: 64 y/o female with PSVT, HTN and BRCA on chemotherapy admitted with complicated MSSA sepsis/bacteremia related to port tip and [place] mitral valve endocarditis, subsequently complicated by new diagnosis of atrial fibrillation and
embolic CVA (septic vs thombotic).
Enterostomal Therapy Nurse: Espinoza (for palps, AT/PSVT)
#Mitral valve endocarditis, mitral regurgitation:
-DONNELL 08/08/2024: LVEF 60-65%, mobile vegetation attached to the base of P1/P2 segment of MV (0.9 x 0.7 x 0.7 cm), mild MR.
-Status-post radical mitral valve repair [debridement of annulus, patch repair, annuloplasty with 30 mm band], open left sided maze procedure [cryoablation], LAAE [35 mm clip], Dr. Brian 08/10/24.
-Remains in sinus rhythm on telemetry.
-ABX per ID (vancomycin/daptomycin).
-Post TTE show mitral valve echodensity. Discussed with Dr. Brian. Unlikely vegetation given time course, possible thrombus from new valve architecture. Continue apixaban and repeat TTE in 14 days. If echo density remains, we will repeat a DONNELL
at that time.
-Continue routine post operative management, including amiodarone, metoprolol 12.5 mg BID.
-Incentive spirometry.
-Ambulate with therapy as much as possible. Planing for [facility].
#Hyponatremia
-Nephrology gave tolvaptan with improvement
#Urinary retention
-D/C loratidine and monitor.
#Sepsis/MSSA bacteremia:
-Acute, due to port infection leading to mitral valve endocarditis.
-Port removed, MV repaired.
-Vancomycin (due to PCN allergy) per ID.
#Bi-hemispheric embolic stroke:
-Acute/subacute.
-Likely cardioembolic from MV vegetation.
-CT head negative for any hemorrhagic conversion.
-Therapeutic anticoagulation with apixaban.
#PAF, RVR:
-New diagnosis this admit.
-Rate/rhythm control with amiodarone and metoprolol.
-CHADS2-Vasc = 5 (HTN, Age x1, CVA x2, Female).
-S/P MAZE/CLAUDIA clip. Therapeutic anticoagulation with apixaban.
#Pancytopenia
-Chronic, iatrogenic.
-Per oncology, etiology thought to be more likely ongoing infection then chemotherapy though both could be contributing.
-Has not been thrombocytopenic in the past with chemo.
#Breast Ca, on chemo
#HTN
#Hx of PSVT (mechanism uncertain)
DATA:
Cardiac Catheterization, 08/09/2024:
CONCLUSIONS
1. No obstructive coronary artery disease.
2. Elevated LVEDP at 20 mmHg.
3. No obstructive iliofemoral stenosis bilaterally.
Mitral Valve Repair, 08/10/2024:
Procedure(s) Performed:
1. Standard sternotomy with aortic and bicaval cannulation
2. Open left sided maze procedure [cryoablation]
3. Left atrial appendage exclusion [35 mm clip]
4. Radical mitral valve repair [debridement of annulus, patch repair, annuloplasty with 30 mm band]
5. Placement of temporary atrial ventricular pacing wires
6. Transesophageal echocardiographic
7. Rigid sternal fixation with plates
Echocardiogram, 08/15/2024:
CONCLUSIONS
TDS.
Normal-appearing LV size and function with no obvious wall motion
abnormalities.
LVEF is 55-60% by visual estimation.
Normal right ventricular size and function.
s/p mitral valve repair with 30 mm Annuloplasty ring. Mobile echo density is
seen on the posterior (View 36, 54, 55) and possible anterior mitral leaflet
(View 45). No significant stenosis or regurgitation.
Estimated pulmonary artery pressure of 33 mmHg assuming a right atrial pressure
of 3 mmHg.
Compared to intraoperative DONNELL and TTE from August 03, 2024, new echodensity seen
on mitral valve as above.
Ordering providers were made aware.
Physical Exam
Vital Signs/Labs
Vital Signs
Temp Pulse Resp BP Pulse Ox
98 F 84 20 116/72 92
08/21/24 08:01 08/21/24 08:01 08/21/24 08:01 08/21/24 08:58 08/21/24 08:01
08/20/24 08/21/24 08/22/24
06:59 06:59 06:59
Actual Weight 82 kg
08/19/24 05:58
08/21/24 04:32
PT 19.9 Sec (11.4-14.6) H 08/12/24 03:36
INR 1.67 08/12/24 03:36
APTT 34.3 Sec (23.4-35.0) 08/12/24 03:36
Magnesium 1.7 mg/dl (1.6-2.3) 08/21/24 04:32
Triglycerides 181 mg/dl (10-149) H 08/08/24 05:31
LDL Cholesterol, Calc 49 mg/dl 08/08/24 05:31
VLDL Cholesterol, Calc 36 mg/dl (0-30) H 08/08/24 05:31
HDL Cholesterol 22 mg/dl 08/08/24 05:31
Physical Exam
Constitutional: No acute distress and Comfortable
EENT: Moist mucous membranes
Cardiovascular: Rhythm & rate is regular, Pedal edema is absent, JVD pressure is normal and Systolic murmur absent
Respiratory: Respiratory effort normal and Lungs clear to auscul.
Neuro/Psych: AO x 3
Data Reviewed
-
Date of Service: August 21, 2024
EKG: Other (Tele: SR 80s)
Labs: Labs Reviewed by me
[2024-08-21] MEDS: FLUSH (NSS) 2 FLUSH IV (10:44)
[2024-08-21] MEDS: VANCOCIN 200 IV (10:44)
[2024-08-21] MEDS: NSS IV (12:06)
--- NOTE | 2024-08-21 16:13 | PTCARENOTE ---
Pt's peña catheter removed by this RN at 1600. Pt on time & amt now; due to void at 2200 this evening. Pt had been refusing catheter removal, asking to wait until Mon AM before she goes to [facility]. This RN explained need for removal at this time
due to risk for infection the longer the catheter stays in. Pt finally agreed. Advised pt to ring for assistance when she needs to void. Call lopez within reach.
[2024-08-21 21:54] LABS: Glucose - Point of Care 115 mg/dl (70-99)
[2024-08-21] MEDS: MAGIC OR MIRACLE MOUTHWASH 10 ML PO (22:04)
[2024-08-21] MEDS: ATIVAN 0.5 MG PO (22:13)
--- NOTE | 2024-08-22 00:14 | PTCARENOTE ---
Received pt @ change of shift. AAOx3, VSS-- NSR w/ occasional PVCs on monitor. NIHSS=1-- left eye droopy with some vision impairment. Adair was removed by previous RN. Pt was due to void by 2200. Bladder scan showed 212 mL of urine. Discussed
additional scanning and need for straight catheter if urine amount >400mL. Pt verbalizes understanding. Discussed other plan of care-- understanding verbalized. bedside. Call lopez within reach.
--- NOTE | 2024-08-22 00:39 | W.PN.CT ---
Today's Communication / Plan
-
No issues overnight�
Na 133 from 137 - got Tolvaptan on 08/18 and 08/19, fluid restriction stopped�
Adair DC on 08/21, voiding trial patient also got flomax, 08/22 still unable to void straight cath order placed�
Currently, Lasix 40 po daily. Decreased KCL to 20 qd. Hold K if holding Lasix�
1 pRBC on 08/17, followed by Lasix40 mg and 25% Albumin x3. �
Post TTE shows mitral valve echodensity- started on Eliquis on 08/16. Plans for repeat Echo in 2 weeks on Eliquis�
Per ID, on iv Vanco through 09/22/24 and po Vanco through 09/26/24�
Encourage IS �
Continue PT/OT�
[facility] and [facility]�
Assessment / Plan
-
- Mitral valve endocarditis- s/p Radical mitral valve repair [debridement of annulus, patch repair, annuloplasty with 30 mm band]; Open left sided maze procedure [cryoablation]; Left atrial appendage exclusion [35 mm clip] by Dr. Brian on 08/10/24,
pod #12
- Intraop DONNELL: LVEF was pre and post 60% with no new regional wall motion abnormalities. RV was normal size and function. After coming off cardiopulmonary bypass there was no residual leak and the mean gradient across the valve was 2. The left
atrial appendage was also opened up prior to ligation to ensure that there was no vegetations within it.
- Mitral valve endocarditis with embolic phenomenon and sepsis, moderate mitral valve insufficiency
- Multiple CVAs
- Acute metabolic encephalopathy
- Active breast cancer, on chemotherapy
- Chemotherapy induced diarrhea
- Multiple electrolyte imbalances
- Paroxysmal atrial fibrillation
- Immunocompromise
- Acute hypoxic respiratory failure
- Stage 1 obesity, BMI 31
- Acute postop blood loss anemia- s/p 4 pRBCs total (1 preop, 2 intraop and 1 postop)
- Acute postop coagulopathy/thrombocytopenia - s/p Factor 7, 3 platelets and 2 FFPs
- Acute postop atelectasis
- Acute postop hypovolemia with subsequent hypervolemia
- Acute postop diarrhea, C. difficile negative
- Acute postop hypokalemia
- Acute postop hypocalcemia
- Acute postop hypomagnesemia
- Acute postop hyponatremia -started 1200 fluid restriction
- Acute postop deconditioning
- Post TTE shows mitral valve echodensity- suspected thrombus - started on Eliquis on 08/16/24
- Acute postop mouth ulcers on 08/17/24- started Magic wash
Subjective
-
Date of Service: August 22, 2024
Objective Data
-
Lab Results
08/19/24 05:58
PT 19.9 Sec (11.4-14.6) H 08/12/24 03:36
INR 1.67 08/12/24 03:36
APTT 34.3 Sec (23.4-35.0) 08/12/24 03:36
Vital Signs
Vital Signs
Temp Pulse Resp BP Pulse Ox
97.8 F 77 18 96/67 96
08/21/24 22:04 08/21/24 22:04 08/21/24 22:04 08/21/24 22:04 08/21/24 22:04
CT Intake/Output/Weight
08/21/24 08/21/24 08/22/24
06:59 18:59 06:59
Intake Total 510 / 3570 960 / 960
Output Total 1900 / 5150 1525 / 1525
Balance -1390 / -1580 -565 / -565
SaO2: 96
Physical Exam
-
General: Awake
Cardiovascular: Regular rate & rhythm
Respiratory: Clear
Sternum: Stable
Incision: Clean, Dry and Intact
Extremities: Edema +1
[2024-08-22 04:08] VITALS: BP 103/66
[2024-08-22 05:02] LABS: Blood Urea Nitrogen 18 mg/dl (7-17); Calcium 8.1 mg/dl (8.4-10.2); Carbon Dioxide 32 mmol/L (22-30); Chloride 100 mmol/L (98-107); Estimated Creatinine Clearance 66 ml/min; Glucose 101 mg/dl (70-99); Potassium 4.3 mmol/L (3.5-5.1); Sodium 133 mmol/L (135-145); eGFR > 60.00
--- NOTE | 2024-08-22 05:21 | PTCARENOTE ---
Bladder scanned pt after little output this AM-- scanned for 556mL of urine. Informed Nabil Bernard, AYUSH, and he placed order to bladder scan for no voiding Q6H and straight cath if scanned for more than 400 mL. RN straight cathed pt for 550 mL of
urine.
[2024-08-22 06:00] VITALS: BMI 30.7
[2024-08-22] MEDS: TYLENOL 1000 MG PO ×2 (06:25→15:08)
[2024-08-22] MEDS: SYNTHROID 50 MCG PO (06:25)
[2024-08-22 06:59] VITALS: BP 99/69
[2024-08-22 08:00] VITALS: BP 99/69
[2024-08-22] MEDS: IMODIUM PO (08:38)
[2024-08-22] MEDS: MAGNESIUM OXIDE 500 MG PO (08:39)
[2024-08-22] MEDS: TOPROL XL 25 MG PO (08:39)
[2024-08-22] MEDS: UROCIT-K 20 MEQ PO (08:39)
[2024-08-22] MEDS: FLOMAX 0.4 MG PO (08:39)
[2024-08-22] MEDS: NEURONTIN 100 MG PO ×2 (08:39→15:08)
[2024-08-22] MEDS: PROTONIX 40 MG PO (08:39)
[2024-08-22] MEDS: VISBIOME 1 CAP PO (08:40)
[2024-08-22] MEDS: LOW STRENGTH ASPIRIN 81 MG PO (08:40)
[2024-08-22] MEDS: PACERONE 200 MG PO ×2 (08:40→15:08)
[2024-08-22] MEDS: FIRVANQ 125 MG PO (08:40)
[2024-08-22] MEDS: ELIQUIS 5 MG PO (08:40)
[2024-08-22] MEDS: LASIX 40 MG PO (08:40)
[2024-08-22] MEDS: LIDOCAINE 4% PATCH 1 PATCH TOPICAL (08:40)
[2024-08-22] MEDS: DESENEX/MITRAZOL/ZEASORB 1 APPLIC TOPICAL (08:41)
[2024-08-22] MEDS: MAGIC OR MIRACLE MOUTHWASH 10 ML PO (08:52)
--- NOTE | 2024-08-22 09:21 | PHA.VAN.FU ---
Vancomycin Assessment / Plan
- Assessment
Renal Function: Stable
WBC's are: WNL
In the past 24 hrs, patient has been: Afebrile
- Dosing Plan
Continue: 1000mg daily@1000
- Monitoring Plan
Level(s) appropriate: Recheck trough at minimum of weekly intervals, Repeat sooner for changes in renal function or clinical status
- Follow Up
Pharmacy will continue to follow.
Vancomycin Follow UP
- -
Patient Age: 64
Patient Sex: Female
Vancomycin Day #: 15
Indication: Endocarditis
Requesting Provider: Dr Roy
Pertinent Antimicrobial Allergies:
Cefprozil - hives
cephalosporins - unknown
Ciprofloxacin - unknown
Penicillins - hives
Trimethoprim / sulfamethoxazole (Bactrim) - hives
Height / Weight:
Height 5 ft 5 in
Actual Weight 83.8 kg
Pertinent Past Medical History: Breast cancer (port)
- Vital Signs / Lab Results
Temp Pulse Resp BP Pulse Ox
98.5 F 81 20 99/69 95
08/22/24 08:00 08/22/24 08:40 08/22/24 07:00 08/22/24 08:40 08/22/24 07:00
Lab Results - Chemistry
08/20/24 08/21/24 08/22/24
03:25 04:32 04:25
BUN 18 H 17 18 H
Creatinine 1.0 0.9 0.9
Estimated Creat Clear 61 68 66
Microbiology Results
08/16/24 03:21 Blood Culture - Final
Blood/Venous No Growth - Final Report
08/16/24 03:21 Blood Culture - Final
Blood/Venous No Growth - Final Report
Therapeutic Drug Monitoring
Vancomycin Peak 27.8 ug/ml (18-26) H 08/20/24 13:50
Vancomycin Trough 15.0 ug/ml (5-20) 08/21/24 09:36
Random Vancomycin 15.8 ug/ml 08/16/24 03:21
--- NOTE | 2024-08-22 09:34 | W.PN.CD ---
Today's Communication / Plan
-
continue eliquis
f/u echo 2 weeks
rehab planning
Impression / Plan
-
Impression/Plan: 64 y/o female with PSVT, HTN and BRCA on chemotherapy admitted with complicated MSSA sepsis/bacteremia related to port tip and [place] mitral valve endocarditis, subsequently complicated by new diagnosis of atrial fibrillation and
embolic CVA (septic vs thombotic).
Transportation Department Head: Espinoza (for palps, AT/PSVT)
#Mitral valve endocarditis, mitral regurgitation:
-DONNELL 08/08/2024: LVEF 60-65%, mobile vegetation attached to the base of P1/P2 segment of MV (0.9 x 0.7 x 0.7 cm), mild MR.
-Status-post radical mitral valve repair [debridement of annulus, patch repair, annuloplasty with 30 mm band], open left sided maze procedure [cryoablation], LAAE [35 mm clip], Dr. Brian 08/10/24.
-Remains in sinus rhythm on telemetry.
-ABX per ID (vancomycin/daptomycin).
-Post TTE show mitral valve echodensity. Discussed with Dr. Brian. Unlikely vegetation given time course, possible thrombus from new valve architecture. Continue apixaban and repeat TTE in 14 days. If echo density remains, we will repeat a DONNELL
at that time.
-Continue routine post operative management, including amiodarone, metoprolol 12.5 mg BID.
-Planing for [facility].
#Hyponatremia
-Nephrology gave tolvaptan with improvement
#Urinary retention
-D/C loratidine and monitor.
#Sepsis/MSSA bacteremia:
-Acute, due to port infection leading to mitral valve endocarditis.
-Port removed, MV repaired.
-Vancomycin (due to PCN allergy) per ID.
#Bi-hemispheric embolic stroke:
-Acute/subacute.
-Likely cardioembolic from MV vegetation.
-CT head negative for any hemorrhagic conversion.
-Therapeutic anticoagulation with apixaban.
#PAF, RVR:
-New diagnosis this admit.
-Rate/rhythm control with amiodarone and metoprolol.
-CHADS2-Vasc = 5 (HTN, Age x1, CVA x2, Female).
-S/P MAZE/CLAUDIA clip. Therapeutic anticoagulation with apixaban.
#Pancytopenia
-Chronic, iatrogenic.
-Per oncology, etiology thought to be more likely ongoing infection then chemotherapy though both could be contributing.
-Has not been thrombocytopenic in the past with chemo.
#Breast Ca, on chemo
#HTN
#Hx of PSVT (mechanism uncertain)
DATA:
Cardiac Catheterization, 08/09/2024:
CONCLUSIONS
1. No obstructive coronary artery disease.
2. Elevated LVEDP at 20 mmHg.
3. No obstructive iliofemoral stenosis bilaterally.
Mitral Valve Repair, 08/10/2024:
Procedure(s) Performed:
1. Standard sternotomy with aortic and bicaval cannulation
2. Open left sided maze procedure [cryoablation]
3. Left atrial appendage exclusion [35 mm clip]
4. Radical mitral valve repair [debridement of annulus, patch repair, annuloplasty with 30 mm band]
5. Placement of temporary atrial ventricular pacing wires
6. Transesophageal echocardiographic
7. Rigid sternal fixation with plates
Echocardiogram, 08/15/2024:
CONCLUSIONS
TDS.
Normal-appearing LV size and function with no obvious wall motion
abnormalities.
LVEF is 55-60% by visual estimation.
Normal right ventricular size and function.
s/p mitral valve repair with 30 mm Annuloplasty ring. Mobile echo density is
seen on the posterior (View 36, 54, 55) and possible anterior mitral leaflet
(View 45). No significant stenosis or regurgitation.
Estimated pulmonary artery pressure of 33 mmHg assuming a right atrial pressure
of 3 mmHg.
Compared to intraoperative DONNELL and TTE from August 03, 2024, new echodensity seen
on mitral valve as above.
Ordering providers were made aware.
Physical Exam
Vital Signs/Labs
Vital Signs
Temp Pulse Resp BP Pulse Ox
98.5 F 81 20 99/69 95
08/22/24 08:00 08/22/24 08:40 08/22/24 07:00 08/22/24 08:40 08/22/24 07:00
08/21/24 08/22/24 08/23/24
06:59 06:59 06:59
Actual Weight 82 kg 83.8 kg
08/19/24 05:58
08/22/24 04:25
PT 19.9 Sec (11.4-14.6) H 08/12/24 03:36
INR 1.67 08/12/24 03:36
APTT 34.3 Sec (23.4-35.0) 08/12/24 03:36
Magnesium 1.7 mg/dl (1.6-2.3) 08/21/24 04:32
Triglycerides 181 mg/dl (10-149) H 08/08/24 05:31
LDL Cholesterol, Calc 49 mg/dl 08/08/24 05:31
VLDL Cholesterol, Calc 36 mg/dl (0-30) H 08/08/24 05:31
HDL Cholesterol 22 mg/dl 08/08/24 05:31
Physical Exam
Constitutional: No acute distress and Comfortable
EENT: Moist mucous membranes
Cardiovascular: Rhythm & rate is regular, Pedal edema is absent, JVD pressure is normal and Systolic murmur absent
Respiratory: Respiratory effort normal and Lungs clear to auscul.
Neuro/Psych: AO x 3
Data Reviewed
-
Date of Service: August 22, 2024
EKG: Other (Tele: SR 70s)
Labs: Labs Reviewed by me
[2024-08-22] MEDS: VANCOCIN 200 IV (10:13)
[2024-08-22] MEDS: FLEXERIL 5 MG PO (10:30)
--- NOTE | 2024-08-22 11:33 | CM ---
Addendum entered by Tahira Hopper RN 08/22/24 15:24:
Acute Rehab authorization for [facility] approved 08/22-08/28. NRD 08/29. Clinicals to be faxed to [phone]. Auth# [id number]
Original Note:
Chart reviewed. Patient is independent of ADLS, lives with her in a 2 [address], 5 IHSAN, 0 DME. PT/OT evaluation recommending Acute Rehab. Physiatry consult recommending Acute Rehab. Patient needs authorization. Clinical faxed to [facility] on
08/19/24. Auth# [id number]. Followed up with Jeanne at [facility]. Unsure if patient will be able to sustain 3 hours of Acute Rehab. Confirmed with her PT/OT notes along with Physiatry. [facility] sending to their senior medical director. CM to follow
[2024-08-22 12:23] VITALS: BP 97/72; PULSE 77
[2024-08-22 12:34] VITALS: BP 97/72; PULSE 77
[2024-08-22] MEDS: NSS IV (13:03)
--- NOTE | 2024-08-22 15:19 | W.DCSUMMARY ---
Discharge Summary
Discharge Data
Date of Admission: 08/02/24
Date of Discharge: 08/22/24
-
Pending Results: No
Hospital Course
Primary care physician: Colton Rodriguez
Outpatient bomb squad commander: Richmond Esteban
Inpatient consultants: [facility] Cardiology, pulmonary licensed direct entry midwife, Hematology/Oncology, infectious disease, rehab medicine, nephrology
Procedures:
1. mitral valve repair, MAZE, left atrial appendage clip
Primary Diagnosis:
1. MSSA mitral valve bacteremia
Secondary Diagnoses:
1. atrial fibrillation
2. HLD
3. HTN
4. right breast cancer (2023) s/p lumpectomy with adjuvant chemotherapy
5. pre-op chemo induced diarrhea
6. Acute hypoxic respiratory failure
7. Stage 1 obesity, BMI 31
8. Acute postop blood loss anemia- s/p 4 pRBCs total (1 preop, 2 intraop and 1 postop)
9. Acute postop coagulopathy/thrombocytopenia - s/p Factor 7, 3 platelets and 2 FFPs
10. Acute postop hypovolemia with subsequent hypervolemia
11. Acute postop diarrhea, C. difficile colonization
12. Acute postop hypokalemia
13. Acute postop hypocalcemia
14. Acute postop hypomagnesemia
15. Acute postop hyponatremia -started 1200 fluid restriction
16. Acute postop deconditioning
17. 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
18. Acute postop apthous mouth ulcers on 08/17/24- started Magic wash
19. Hx SVT/atrial tachycardia
HPI: 64 y/o female with past medical history significant for SVT/AT, mild MR, HTN, breast cancer on chemotherapy (last dose 08/01/24). She presented to [facility] on 08/02/24 with sepsis and was found to be in A-fib with RVR. She was started on an
amiodarone drip and converted to sinus rhythm. Patient was evaluated by infectious disease team and blood cultures revealed MSSA bacteremia.
Hospital course: Bacteremia suspected to be related to infected port site and port was removed on 08/04/24. She has been on IV antibiotics per infectious disease since admission, IV daptomycin and converted to Vancomycin nadia to PCN allergy. Echo on
08/03 demonstrated normal LV function without valve dysfunction or vegetation. Due to persistent blood cultures DONNELL on 08/10 which demonstrated 0.7 x 0.9cm attached to the MV leaflet with mild MR & normal LV function. Unfortunately patient experienced
painless vision loss of her left eye last evening with confirmed acute embolic infarct on brain MRI. Blood cultures ultimately negative from 08/10 forward. Patient was brought to the operating room on 08/10/2024 and underwent radical mitral valve
repair [debridement of annulus, patch repair, annuloplasty with #30 mm band], Cryo maze procedure [cryoablation], left atrial appendage exclusion [35 mm clip] emergency room fixation by Dr. Clint Brian. Patient received 2 PRBC, 2 platelets, and
factor VII intraoperatively. She returned to the CVICU on Levophed, vasopressin, dobutamine, insulin, and Precedex. An additional 2 units of FFP and 1 platelet was given postoperatively for chest tube drainage. An NG tube was placed due to a full
stomach on induction. Patient was extubated at 2330 the day of surgery. 1 additional PRBC was given for hemoglobin of 7 9 with resultant increase to 9.4. Rectal tube remained intact for diarrhea. Pathology of mitral valve tissue confirmed MSSA.
Blood cultures remain negative. Dobutamine was weaned off on postoperative day 1. Wires and chest tubes were removed on postoperative day #2. NG tube was removed. Insulin was off. Further chemotherapy was discontinued per hematology oncology
and patient recommended to follow-up in office to review possible radiation and HER2 therapy. Patient able to be out of bed to chair via Hannah lift but was very weak. PT/OT were consulted and recommended rehab for discharge disposition. On
postoperative day #4, Imodium was increased to 2 mg twice daily for persistent diarrhea. Potassium citrate was increased to 40 mg twice daily for chronic hypokalemia. On postoperative day #5, a TTE reported thrombus on the mitral valve and
follow-up head CT was negative for hemorrhagic conversion of initial stroke. A right upper extremity PICC line was placed. Eliquis was started on postoperative day #6. Patient was aggressively diuresed. Rectal tube was removed on postoperative
day #7. Sodium decreased to 123 on postoperative day #8, urine sodium and osmolality were within normal limits. Nephrology ordered 1 dose of tolvaptan 7.5 mg with resultant increase in sodium to 127. Magic mouthwash was ordered for aphthous mouth
ulcers. Jah dressing was removed from sternum and sternum noted to be intact without erythema. Adair catheter was removed and patient required straight catheter overnight. Postoperative day #9, bladder scan revealed more than 1 L of residual
urine and Adair was reinserted. Urology notified and stated patient to have trial of void and if fails may discharge with Adair catheter in place and follow-up as outpatient in urology office. Adair was again removed on 629. However patient had
residual urine greater than 400 cc in Adair reinserted. Flomax was continued. Patient able to ambulate a few steps with PT/OT. Edema in legs has improved and weight trending down. Will continue Lasix 40 mg daily on discharge. Imodium was
changed to as needed dosing. Gabapentin will continue for 10 days post discharge. Intravenous vancomycin dose will and on 09/22 and oral vancomycin for C differential colonization we will and on 09/26. Weekly CBC with differential and CMP will need
to be obtained and reported to Dr. Roy from infectious disease. Patient is deemed stable for discharge to rehab.
Home medication changes:
See below
Discharge Plan
-
Patient Disposition: Acute Rehab Facility
Discharge Diagnosis/Procedures: mitral repair, MAZE, left atrial appendage clip
Condition: Fair
Diet: Low Cholesterol and Low Sodium
Activity: No strenuous activity
Driving Restrictions: Not until seen by your Dr
Bathing Restrictions: OK to Shower
Blood Work: CBCWD/CMP weekly and sent to infectious disease (Dr. Sofy Roy)
Other Services: Cardiac Rehab
Specialty Instructions: Weigh Daily- Call MD for wt gain/loss 3 lbs overnight/5 lbs in 1 week
Referrals:
[facility] [Other]
Referral Note: FAX [phone]
Colton Rodriguez MD [Family Provider, [facility]]
Angelita Caruso CRNP [Specified Professional Personl, Cardiology] - 09/23/24 10:40 am
Ryann Barreto CRNP [Specified Professional Personl, Cardiac Surgery] - 09/12/24 1:15 pm
Prescriptions:
New
vancomycin 50 mg/mL Recon Soln
125 mg PO DAILY Qty: 0 1RF
Rx Instructions:
end date 09/26/24
vancomycin in 0.9 % sodium chl 1 gram/200 mL Piggyback
1 g IV DAILY@1000 Qty: 0 0RF
tamsulosin 0.4 mg Capsule
0.4 mg PO DAILY Qty: 30 1RF
Eliquis 5 mg Tablet
5 mg PO BID Qty: 0 0RF
amiodarone 200 mg tablet
200 mg PO BID Qty: 60 1RF
Rx Instructions:
1 tab po BID x 14 days, then 1 tab daily
furosemide 40 mg Tablet
40 mg PO DAILY Qty: 0 0RF
acetaminophen 325 mg Tablet
650 mg PO Q4HPRN PRN (Reason: mild pain,headache,temp >101F ) Qty: 0 0RF
loperamide 2 mg Capsule
2 mg PO Q4HPRN PRN (Reason: diarrhea) Qty: 0 0RF
potassium citrate 10 mEq (1,080 mg) Tablet Extended Release
20 meq PO DAILY Qty: 0 0RF
Lactobac/Bifidobac [Visbiome]
1 cap PO DAILY Qty: 0 0RF
pantoprazole 40 mg Tablet,Delayed Release (Dr/Ec)
40 mg PO DAILY Qty: 0 0RF
gabapentin 100 mg Capsule
100 mg PO TID Qty: 1 0RF
metoprolol succinate 25 mg Tablet Extended Release 24 Hr
25 mg PO DAILY Qty: 0 0RF
lidocaine HCl [Lidocaine Viscous] 2 % Solution
10 ml PO TID Qty: 100 0RF
Continued
lorazepam 0.5 MG tablet
0.5 mg PO DAILYPRN PRN (Reason: anxiety)
levothyroxine 50 mcg Tablet
50 mcg PO DAILY
cyclobenzaprine 5 mg Tablet
5 mg PO HS PRN (Reason: muscles spasm)
Discontinued
diltiazem HCl [Cardizem CD] 240 mg Capsule,Extended Release 24hr
240 mg PO DAILY
naproxen 250 mg Tablet
250 mg PO BID PRN (Reason: mild pain)
loratadine 10 mg Tablet
10 mg PO DAILY
Discharge Orders:
Discharge Patient (As Directed); Ordered 08/22/24
Ordered By: Lauren Aguero
Care Plan Goals
Care Plan Goals:
Problem: Readiness for enhanced knowledge related to diagnosis and treatment plan
Goal: Understand your diagnosis and treatment plan needs, including medications if applicable.
Instructions: Know your diagnosis, underlying causes and treatment plan options, including medications if applicable. Consult with your health care team to learn about your diagnosis and treatment plan, including medications if applicable.
Discharge Date and Time
Print Language: PORTUGUESE
--- NOTE | 2024-08-22 16:08 | W.PN.ID1 ---
Date of Service
Date of Service: August 22, 2024
Today's Communication
Continue Vancomycin.
Assessment / Plan
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
# Complicated Staphylococcus aureus (MSSA) bacteremia (13 sets of Bcx's);
# Catheter associated bloodstream infection from port, present on admission.
# Multiple antibiotic allergies including penicillin, cephalosporins, sulfa, cipro
# R Breast cancer - adjuvant chemotherapy on hold
- 08/04 s/p port removed, cath tip MSSA
- bcx's cleared from 08/10 forward
- 08/10 s/p open radical mitral valve repair debridement of annulus, patch repair, annuloplasty with 30 mm band
- 08/10 MV tissue cx: MSSA
- 08/15 TTE mobile echodensity seen on repaired MV. ?thrombus
- Continue IV Vancomycin 1000 mg IV q24 x 6 weeks from OR, ie. through 09/21/24 +/- oral abx afterwards
[facility] Pharmacy will continue to follow Vanco levels and adjusts dosing as needed.
Follow weekly CBC/diff and CMP while on IV Vancomycin.
Infusion sheet submitted to Computer Education Professor.
# Stool C. diff Ag+, toxin neg = colonization
On prophylactic Vancomycin 125mg po daily through 09/26/24.
����������������������������������������������������������
Chief Complaint
-: Bacteremia and Other (endocarditis)
Subjective / Review of Systems
No new complaints
Vital Signs / Physical Exam
Vital Signs
Vital Signs
Temp Pulse Resp BP Pulse Ox
98.1 F 77 20 98/77 97
08/22/24 14:43 08/22/24 15:08 08/22/24 14:43 08/22/24 15:08 08/22/24 14:43
Physical Exam
Constitutional: Comfortable
Cardiovascular: Regular Rate and S1/S2
Gastrointestinal: Soft, Non Tender, Non Distended and Normal Bowel Sounds
Extremities: Negative Edema
Neurological: AO x 3
Lines: PICC (ASHELY lopez)
Objective Data
Lab Data
Lab Results
08/19/24 05:58
08/22/24 04:25
PT 19.9 Sec (11.4-14.6) H 08/12/24 03:36
INR 1.67 08/12/24 03:36
APTT 34.3 Sec (23.4-35.0) 08/12/24 03:36
Estimated Creat Clear 66 ml/min 08/22/24 04:25
Lactic Acid Cancelled 08/03/24 12:03
Total Bilirubin 0.9 mg/dl (0.2-1.3) 08/09/24 04:34
AST 42 U/L (14-36) H 08/09/24 04:34
ALT 38 U/L (0-35) H 08/09/24 04:34
Alkaline Phosphatase 118 U/L (38-126) 08/09/24 04:34
Most recent labs reviewed.
Micro Results:
08/16/24 03:21 Blood Culture - Final
Blood/Venous No Growth - Final Report
08/16/24 03:21 Blood Culture - Final
Blood/Venous No Growth - Final Report
08/12/24 07:45 Blood Culture - Final
Blood/Venous No Growth - Final Report
08/11/24 04:12 Blood Culture - Final
Blood/Venous No Growth - Final Report
08/09/24 04:34 Blood Culture - Final
Blood/Venous S aureus-Methicillin Sensitive
Gram Stain - Final
08/10/24 04:52 Blood Culture - Final
Blood/Venous No Growth - Final Report
08/08/24 05:31 Blood Culture - Final
Blood/Venous S aureus-Methicillin Sensitive
Gram Stain - Final
08/07/24 09:52 Blood Culture - Final
Blood/Venous S aureus-Methicillin Sensitive
Gram Stain - Final
08/06/24 03:49 Blood Culture - Final
Blood/Venous S aureus-Methicillin Sensitive
Gram Stain - Final
08/06/24 03:30 Blood Culture - Final
Blood/Venous S aureus-Methicillin Sensitive
Gram Stain - Final
08/05/24 09:33 Blood Culture - Final
Blood/Venous S aureus-Methicillin Sensitive
Gram Stain - Final
08/10/24 13:45 Tissue Culture - Final
Tissue S aureus-Methicillin Sensitive
Gram Stain - Final
08/04/24 04:17 Blood Culture - Final
Blood/Venous S aureus-Methicillin Sensitive
Gram Stain - Final
08/05/24 09:21 Blood Culture - Final
Blood/Venous S aureus-Methicillin Sensitive
Gram Stain - Final
08/04/24 04:17 Blood Culture - Final
Blood/Venous S aureus-Methicillin Sensitive
Gram Stain - Final
08/03/24 22:57 Salmonella/Shigella Culture - Final
Feces/Stool No Salmonella, Shigella, Aeromonas or Plesiomonas species
isolated.
Campylobacter Culture - Final
No Campylobacter species isolated.
Shiga Toxin Test - Final
No E. coli Shiga Toxin 1 or 2 detected.
Stool Leukocytes - Final
08/04/24 08:18 Catheter Tip Culture - Final
Catheter Tip S aureus-Methicillin Sensitive
08/02/24 20:31 Blood Culture - Final
Blood/Venous S aureus-Methicillin Sensitive
Gram Stain - Final
08/03/24 21:45 Urine Culture - Final
Urine S aureus-Methicillin Sensitive
08/02/24 20:28 Urine Culture - Final
Urine S aureus-Methicillin Sensitive
08/02/24 20:27 Blood Culture - Final
Blood/Venous S aureus-Methicillin Sensitive
Gram Stain - Final
08/02/24 20:51 Blood Culture - Final
Blood/Venous S aureus-Methicillin Sensitive
Gram Stain - Final
08/03/24 22:57 C. difficile GDH Antigen & Toxins - Final
Feces/Stool C. difficile antigen positive, toxin negative.
Clostridium difficile present, but toxin not detected.
Patient may be a carrier, colonized with nontoxinogenic
strain or the level of toxin in sample is below detection
limits. This information should be used in conjunction with
the patient's clinical history.
- Final
Negative for Norovirus GI and GII.
08/02/24 20:39 Influenza Types A & B (DAHLIA) - Final
Nasal Swab Negative for Influenza A & B, NAAT
Negative results must be combined with clinical observations
and patient history.
Nucleic Acid Amplification test (NAAT)performed on the
[employer] platform.
Imaging:
08/08/24 Brain MRI: Several tiny foci of nonhemorrhagic acute/subacute infarcts within the bilateral centrum semiovale/periventricular regions and right cerebellum.
08/02/24 CXR: Probable infectious/inflammatory pneumonitis.
--- NOTE | 2024-08-22 16:57 | PTCARENOTE ---
~2301-1265: Handoff report receivd from nightshift RN. Pt AOx4, NSR 70s-80s on tele, SBP 90s-110s, RA satting 95%, lungs clear diminished at bases. Pt denies pain at this time. Ax1-2 with walker OOB to bedside commode/ recliner. NIHSS 4, L vision
loss patient states is unchanged. Also while assessing, patient unable to lift R arm to 90 degrees to assess motor function. Only able to bend at elbow, not much active movement noted in shoulder. Patient states this is unchanged since the stroke
occured. Sm BM this AM in commode. patient DTV by 1000. Pt c/o sore mouth, PRN magic mouthwash given. Large pills crushed in applesauce. 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 RUE PICC flushed with + blood return. +2 pitting edema BLE,
palpable pulses. Patient OOB in recliner. at bedside. All needs met at this time, call lopez within reach.
~1000: Pt bladder scanned 397cc, informed Lauren PEACOCK, peña placed. PICC line dressing changed by IV team. Pt c/o lower back pain, PRN felxeril given.
~5411-7639: Patient OOB in chair. Peña draining cloudy yellow urine. Pt denies pain at this time. All needs met, call lopez within reach.
~[id number]: Patient resting in chair. Granddaughter at bedside. Insurance aproved patietn for rehab, awaiting phone number from to call for report. Patient in stable condition at this time.
~[id number]: Report called to [facility], waiting for 's arival per pt request to transfer. around 1640, [facility] accompanied by and granddaughter in stable condition. paperwork and
medication sent with patient.
== END 2024-08-22 16:40 | DRG 216 ==
LOC: IVU 23:02
PROVIDERS: Anesthesiology; Clinical Nurse Specialist Acute Care; Internal Medicine; Internal Medicine Cardiovascular Disease; Internal Medicine Infectious Disease; Internal Medicine Interventional Cardiology; Nurse Practitioner; Nurse Practitioner Family; Physician Assistant; Physician Assistant Medical; Radiology Vascular & Interventional Radiology; Student in an Organized Health Care Education/Training Program; ADMITTING PHYSICIAN Internal Medicine; ATTENDING PHYSICIAN Thoracic Surgery (Cardiothoracic Vascular Surgery); CONSULT PHYSICIAN Student in an Organized Health Care Education/Training Program; EMERGENCY PHYSICIAN Emergency Medicine; FAMILY PHYSICIAN Family Medicine; OTHER PHYSICIAN Internal Medicine; OTHER PHYSICIAN Internal Medicine Critical Care Medicine; OTHER PHYSICIAN Internal Medicine Gastroenterology; OTHER PHYSICIAN Internal Medicine Hematology & Oncology; OTHER PHYSICIAN Internal Medicine Infectious Disease; OTHER PHYSICIAN Physical Medicine & Rehabilitation; OTHER PHYSICIAN Psychiatry & Neurology Neurology
PROC: 0JPT3WZ Removal of Totally Implantable Vascular Access Device from Trunk Subcutaneous Tissue and Fascia, Percutaneous Approach (ICD-10-PCS; 2024-08-04)
PROC: B24BZZ4 Ultrasonography of Heart with Aorta, Transesophageal (ICD-10-PCS; 2024-08-08)
PROC: B2111ZZ Fluoroscopy of Multiple Coronary Arteries using Low Osmolar Contrast (ICD-10-PCS; 2024-08-09)
PROC: B2151ZZ Fluoroscopy of Left Heart using Low Osmolar Contrast (ICD-10-PCS; 2024-08-09)
PROC: 4A023N7 Measurement of Cardiac Sampling and Pressure, Left Heart, Percutaneous Approach (ICD-10-PCS; 2024-08-09)
PROC: B41F1ZZ Fluoroscopy of Right Lower Extremity Arteries using Low Osmolar Contrast (ICD-10-PCS; 2024-08-09)
PROC: B41G1ZZ Fluoroscopy of Left Lower Extremity Arteries using Low Osmolar Contrast (ICD-10-PCS; 2024-08-09)
PROC: 5A1221Z Performance of Cardiac Output, Continuous (ICD-10-PCS; 2024-08-10)
PROC: 30233K1 Transfusion of Nonautologous Frozen Plasma into Peripheral Vein, Percutaneous Approach (ICD-10-PCS; 2024-08-10)
PROC: 02L70CK Occlusion of Left Atrial Appendage with Extraluminal Device, Open Approach (ICD-10-PCS; 2024-08-10)
PROC: 02580ZZ Destruction of Conduction Mechanism, Open Approach (ICD-10-PCS; 2024-08-10)
PROC: 02BG0ZZ Excision of Mitral Valve, Open Approach (ICD-10-PCS; 2024-08-10)
PROC: 30233R1 Transfusion of Nonautologous Platelets into Peripheral Vein, Percutaneous Approach (ICD-10-PCS; 2024-08-10)
PROC: 02UG0JZ Supplement Mitral Valve with Synthetic Substitute, Open Approach (ICD-10-PCS; 2024-08-10)
PROC: 30233N1 Transfusion of Nonautologous Red Blood Cells into Peripheral Vein, Percutaneous Approach (ICD-10-PCS; 2024-08-10)
PROC: 02HV33Z Insertion of Infusion Device into Superior Vena Cava, Percutaneous Approach (ICD-10-PCS; 2024-08-15)
DX: T80.211A Bloodstream infection due to central venous catheter, initial encounter (principal); A41.01 Sepsis due to Methicillin susceptible Staphylococcus aureus; D61.810 Antineoplastic chemotherapy induced pancytopenia; I63.40 Cerebral infarction due to embolism of unspecified cerebral artery; G93.41 Metabolic encephalopathy; I33.0 Acute and subacute infective endocarditis; J96.01 Acute respiratory failure with hypoxia; D84.9 Immunodeficiency, unspecified; I47.19 Other supraventricular tachycardia; E87.1 Hypo-osmolality and hyponatremia; K52.1 Toxic gastroenteritis and colitis; D62 Acute posthemorrhagic anemia; G81.94 Hemiplegia, unspecified affecting left nondominant side; D68.9 Coagulation defect, unspecified; E87.20 Acidosis, unspecified; J98.11 Atelectasis; C50.911 Malignant neoplasm of unspecified site of right female breast; I10 Essential (primary) hypertension; I34.0 Nonrheumatic mitral (valve) insufficiency; E03.9 Hypothyroidism, unspecified; E86.0 Dehydration; I48.0 Paroxysmal atrial fibrillation; E86.1 Hypovolemia; T45.1X5A Adverse effect of antineoplastic and immunosuppressive drugs, initial encounter; Y83.8 Other surgical procedures as the cause of abnormal reaction of the patient, or of later complication, without mention of misadventure at the time of the procedure; E87.6 Hypokalemia; E83.51 Hypocalcemia; K12.0 Recurrent oral aphthae; I34.81 Nonrheumatic mitral (valve) annulus calcification; E78.00 Pure hypercholesterolemia, unspecified; E66.01 Morbid (severe) obesity due to excess calories; R33.8 Other retention of urine; E83.42 Hypomagnesemia; H54.62 Unqualified visual loss, left eye, normal vision right eye; R60.0 Localized edema; F41.9 Anxiety disorder, unspecified; E87.70 Fluid overload, unspecified; N25.89 Other disorders resulting from impaired renal tubular function; E83.39 Other disorders of phosphorus metabolism; G62.9 Polyneuropathy, unspecified; Z11.52 Encounter for screening for COVID-19; Z22.1 Carrier of other intestinal infectious diseases; Z68.30 Body mass index [BMI] 30.0-30.9, adult; Z79.899 Other long term (current) drug therapy; Z87.891 Personal history of nicotine dependence; Z86.73 Personal history of transient ischemic attack (TIA), and cerebral infarction without residual deficits; Z88.0 Allergy status to penicillin
CPT/HCPCS: 93308; 0042T; 33259; 36590; 70450; 70496; 70498; 70553; 71045; 71046; 71275; 74018; 77001; 80048; 80053; 80061; 80202; 81003; 81015; 82040; 82248; 82330; 82436; 82533; 82550; 82565; 82570; 82607; 82746; 82805; 82810; 82947; 82962; 83036; 83605; 83615; 83690; 83735; 83930; 83935; 84100; 84132; 84133; 84134; 84145; 84155; 84165; 84300; 84302; 84425; 84443; 84520; 85014; 85018; 85025; 85027; 85049; 85384; 85610; 85730; 86803; 86850; 86900; 86901; 86920; 87040; 87045; 87046; 87070; 87084; 87086; 87147; 87150; 87176; 87186; 87205; 87324; 87427; 87449; 87502; 87798; 87811; 89055; 92523; 92526; 92610; 93005; 93312; 93320; 93321; 93325; 93458; 93880; 94002; 96361; 96365; 96375; 97110; 97116; 97129; 97163; 97164; 97167; 97530; 97535; 99152; 99153; 99291; A9575; C1713; C1768; C1894; J0878; J2185; J2916; J7189; P9016; P9047; P9059; P9073; Q9967

== ENCOUNTER → 2024-09-27 09:15 | Outpatient (REF) | payer OTHER, SELFPAY | LOC: HWRCS 09:15 | PROVIDERS: ATTENDING PHYSICIAN Nurse Practitioner; FAMILY PHYSICIAN Family Medicine | DX: I47.10 Supraventricular tachycardia, unspecified (principal); Z98.890 Other specified postprocedural states; I48.0 Paroxysmal atrial fibrillation; I10 Essential (primary) hypertension | CPT/HCPCS: 93306 ==

== ENCOUNTER 2024-10-07 06:32 | Day surgery (SDC) | payer OTHER, SELFPAY | END 2024-10-07 08:58 | disposition home or self-care (01) | LOC: CATH 06:32 | PROVIDERS: ATTENDING PHYSICIAN Internal Medicine Cardiovascular Disease; FAMILY PHYSICIAN Family Medicine | DX: I48.0 Paroxysmal atrial fibrillation (principal); I08.1 Rheumatic disorders of both mitral and tricuspid valves; I10 Essential (primary) hypertension; I47.10 Supraventricular tachycardia, unspecified; Z85.3 Personal history of malignant neoplasm of breast; F41.9 Anxiety disorder, unspecified; Z79.01 Long term (current) use of anticoagulants | CPT/HCPCS: 93312; 93320; 93325 ==

== ENCOUNTER 2024-10-13 20:35 | Inpatient (IN) | payer OTHER, SELFPAY ==
[2024-10-13] VITALS (23 sets, daily range): BP systolic 77–106; BP diastolic 50–79; BMI 29.7; BMI 29.2
[2024-10-13 16:27] LABS: Hematocrit 35.1 % (37.0-47.0); Hemoglobin 11.9 g/dL (12.0-16.0); Mean Corp Hgb Conc. 33.9 g/dL (33.0-37.0); Mean Corpuscular Volume 93.9 fL (81.0-99.0); Platelet Count 154 10^3/uL (130-400); Red Cell Dist. Width 14.7 % (11.5-14.5)
[2024-10-13 16:39] LABS: AST (SGOT) 30 U/L (14-36); Albumin 3.9 g/dl (3.5-5.0); Alkaline Phosphatase 82 U/L (38-126); Blood Urea Nitrogen 39 mg/dl (7-17); Calcium 9.0 mg/dl (8.4-10.2); Carbon Dioxide 21 mmol/L (22-30); Chloride 97 mmol/L (98-107); Estimated Creatinine Clearance 22 ml/min; Glucose 138 mg/dl (70-99); Potassium 3.2 mmol/L (3.5-5.1); Sodium 131 mmol/L (135-145); Total Protein 7.3 g/dl (6.3-8.2); eGFR 21.87
--- NOTE | 2024-10-13 16:53 | ED.GENMED ---
History of Present Illness
General
Chief Complaint: Fever
Time Seen by Provider: 10/13/24 16:39
History of Present Illness
History of Present Illness:
64-year-old female with history of A-fib, hypertension, breast cancer, and recent hospitalization due to MSSA bacteremia/endocarditis presents to the emergency department for evaluation of chills, diarrhea, and fever for the past 2 days. Noted to
be hypotensive at her doctor's office earlier today. She denies any pain or shortness of breath, denies any abdominal discomfort. No vomiting. Patient was admitted to this hospital August 02 through August 22 due to mitral valve bacteremia and
underwent mitral valve repair, Maze procedure, and left atrial appendage clipping by cardiac surgery. She was initially on daptomycin but then switched to vancomycin which was continued IV through September 22 with oral vancomycin for C. difficile
prophylaxis/colonization ending on September 26. She states the diarrhea that she previously had in association with this did indeed resolve prior to symptoms recurring 2 days ago. She reports voluminous watery, nonbloody diarrhea. Denies any leg
swelling
Past History
Past History
ED Past Medical History: Other (n/a)
Social History
Personal:
Living: with family
Review of Systems
Review of Systems
Allergies reviewed?: Yes
All Other Systems: ROS reviewed and negative except as documented in HPI and ROS
Phy Exam
Physical Exam
Physical Exam:
GEN: Well appearing, NAD, WDWN
Eyes: PERRLA, EOMs intact, no scleral icterus
HENT: NCAT, oral mucosa dry
Lungs: CTAB, no wheezes, rales, rhonchi, normal chest wall excursion
Cardiac: RRR, no M/R/G, no peripheral edema. Radial pulses 2+ bilat
Abdomen: S, NT, ND, NABS, no masses or hepatosplenomegaly
Neuro: AO x 3
MSK: No gross deformity or ecchymosis. No edema. No digital clubbing
Skin: No rashes, petechiae. Normal color, no pallor or jaundice.
Psych: Calm, cooperative, proper hygiene
Course
Orders/Labs/Results
Orders:
Orders
10/13/24 16:07
Complete Blood Count/With Diff Urgent
Comprehensive Metabolic Panel Urgent
Lactic Acid Urgent
Blood Culture Urgent
CL[facility]ORD Source: Blood/Venous
Specimen Description:
10/13/24 16:46
C DIFF [C difficile Antigen & Toxins] Urgent
[facility] Source: Feces/Stool
Specimen Description:
Stool Culture Urgent
[facility]ORD Source: Feces/Stool
Specimen Description:
10/13/24 16:47
Lactated Ringers [Lr] 2,250 ml IV BOLUS
10/13/24 16:52
CR Chest Portable - 1 View Urgent
Comment:
Reason For Exam: fever
Reason Study Needs to be Portable: Other
10/13/24 16:53
Electrocardiogram (*1) Urgent
Reason for Study: Tachycardia
EKG- Treatment ONCE
10/13/24 17:09
Blood Culture Urgent
CLIFFORD Source: Blood/Venous
Specimen Description:
Influenza A+B Rapid Molecular Urgent
CLIFFORD Source: Nasal Swab
Specimen Description:
10/13/24 17:37
COVID-19 Antigen Routine
10/13/24 18:16
Aztreonam [Azactam] 2,000 mg IV NOW STA
10/13/24 18:35
Urinalysis Reflex To Culture Urgent
Date Specimen was Collected: 10/13/24
Time Specimen was Collected: 18:34
Urine Microscopic Reflex Cult Urgent
Urine Culture Urgent
CLIFFORD Source: U
Specimen Description:
Date Specimen was Collected: 10/13/24
Time Specimen was Collected: 18:34
10/13/24 18:55
Sterile Water [Sterile Water For Injection] 20 ml .ROUTE .[facility]
10/13/24 18:56
Potassium Chloride [KCl] 40 meq 0.9% Sodium Chloride 250 ml [Nss] 250 ml IV NOW
10/13/24 18:57
Vancomycin HCl [Firvanq] 125 mg PO NOW STA
10/13/24 19:40
Admit/Transfer Patient As Directed
Co-Sign Provider:
Level of Care: Inpatient admission
Assign to:: IMU- Intermediate Care
Physician / Group: Jason
Diagnosis: Sepsis
Reason for Hospitalization: Sepsis
Expected length of stay greater than two midnights?: Yes
ELOS- Estimated Length of Stay in days: 4
I certify the patient meets the requirements for IP care: Yes
PRN Pain Medication Management As Directed
May give lesser potent ordered pain med per pt: Yes
preference::
Protocol:: Medication orders for pain may be administered in a
manner that supports deferring to patient preference
when the pt is:
- Requesting an ordered lesser potent pain medication.
Least to most potent pain medications are defined
as: acetaminophen < NSAID < tramadol < opioids
(morphine, oxycodone, hydromorphone).
- Requesting a lesser dose of the same medication IF
ORDERED.
- Requesting a less intrusive route of administration
if both routes are prescribed by the provider (PO <
IV).
10/13/24 19:43
Code Status As Directed
Resuscitation Status: Full Code
10/13/24 19:48
Acetaminophen [Tylenol] 1,000 mg PO NOW STA
10/13/24 20:00
NORepinephrine 4 MG/250 ML [Levophed] 4 mg in 250 ml IV PER PROTOCOL
Initial dose in mcg/min, then titrate:: 2
Titrate to keep:: MAP > 65 mmHg
Titrate by mcg/min:: 1-2 mcg/min
Frequency of titrations (minutes):: 5
Maximum dose in ICU in mcg/min:: 30
Maximum dose in IMU in mcg/min:: 8
Maximum dose in IVU in mcg/min:: 4
Begin to taper infusion when:: Remained at goal for 4hrs
Taper by mcg/min:: 1-2 mcg/min
Frequency of taper (minutes) if patient maintains goal:: 30
Taper to off?: Yes
If infusion off & no longer maintaining goal:: Contact Provider
10/13/24 21:48
Acetaminophen [Tylenol] 650 mg PO Q4HPRN PRN
Heparin 44901 Units/250 ml 25,000 units in 250 ml IV PER PROTOCOL
Weight to be used for heparin protocol in kilograms (kg):: 73.5
Protocol:: Cardiac Tx/Acute Coronary
PTT Goal Range to be used:: PTT 73 to 111 seconds
Order type:: Initial
INITIAL Infusion Dose (UNITS/KG/hr) & then follow protocol:: 12 units/kg/hr
Infusion Dose in UNITS/hr & then follow protocol (UNITS/hr):: 900
INFUSION RATE in mL/hr & then follow protocol (mL/hr):: 9
PTT less than or equal to 64 seconds:: Increase rate by 200 units/hr (+ 2 mL/hr)
PTT 64.1 to 72.9 seconds:: Increase rate by 100 units/hr (+ 1 mL/hr)
PTT 73 to 111 seconds:: Target Range. No change in rate.
PTT 111.1 to 130.9 seconds:: Decrease rate by 100 units/hr (- 1 mL/hr)
PTT 131 to 199.9 seconds:: HOLD for 1 hr. Then decrease rate by 200 units/hr (- 2 mL/hr)
PTT greater than or equal to 200 seconds:: HOLD for 2 hrs & Notify Provider. Then decrease by 200 units/hr (-
2 mL/hr)
Lab follow-up:: Each change, PTT q6h until 2 consecutive are therapeutic. Then PTT
daily.
Lactated Ringers [Lr] 1,000 ml IV 125 mls/hr
Potassium Chloride Powder [Klor-Con] 20 meq PO BID
VANCOMYCIN Pharmacy to Dose [VANCOCIN Pharmacy to Dose] 1 each Pharmacy To Prepare [Call Pharmacy To Prepare] 0 ml IV PER PROTOCOL
10/13/24 21:48
Heparin Protocol- PTT Orders As Directed
PTT per Heparin protocol: -Obtain CBC and baseline PTT - if not already collected.
-Obtain PTT 6 hours from start of infusion. Then, every 6 hours until 2 consecutive
PTT's are therapeutic. Then, PTT Daily.
-With each rate change, obtain PTT every 6 hours until 2 consecutive PTT's are
therapeutic. Then, PTT Daily.
Activity As Directed
Activity Level: Ambulate
With Assistance
Bladder Scan As Directed
Follow Bladder Retention/Intermittent Cath Algorithm?: Yes
PRN if no void in __ hours: 6
Frequency: Per Retention Algorithm
If Bladder Scan Result >: 400
then:: Straight cath
EKG with chest pain [ECG as needed] As Directed
ECG as needed for:: Chest Pain
I/O [Intake/ Output] As Directed
Frequency: Per unit guidelines
Notify MD As Directed
Notify physician if: PTT is greater than or equal to 200.
Pneumatic Compression Sleeves As Directed
Type: Knee high
Straight Cath As Directed
Frequency: Per Retention Algorithm
Additional Instructions: straight cath as needed per acute urinary retention algorithm for 24 hrs
Additional Instructions: for bladder scan greater than 400 mL
Vital Signs As Directed
Frequency: Per unit guidelines
Weight As Directed
Frequency: Daily
Oxygen Therapy [O2 Therapy] [RESP] Routine
Titrate/Wean O2 to maintain O2 sat greater than (%): 94
Ot Eval And Treat Routine
PT Consult [Pt Eval And Treat] Routine
Activity Level: Ambulate
With Assistance
Speech Therapy Eval & Treat Routine
DX Deep Vein Thrombosis Video Routine
10/13/24 22:02
Complete Blood Count/No Diff Urgent
Comment: Obtain baseline before beginning heparin infusion if not already collected
Lactic Acid Q6H
PTT Urgent
Comment: Obtain baseline before beginning heparin infusion if not already collected
TSH Reflex To Free T4 Routine
10/14/24 00:00
Vancomycin HCl [Firvanq] 125 mg PO Q6
10/14/24 03:48
Lactic Acid Q6H
10/14/24 Breakfast
BRAT
At Your Request: Full Participation
Does patient need a safe tray?: No
Basic Metabolic Panel IN AM
Complete Blood Count/No Diff IN AM
LFT [Yixtq-Ixtv-Elipnqr] IN AM
Magnesium IN AM
Levothyroxine [Synthroid] 50 mcg PO DAILY @ 0600
10/14/24 08:00
Amiodarone [Pacerone] 200 mg PO DAILY
10/14/24 09:48
Lactic Acid Q6H
10/15/24 06:00
Complete Blood Count/No Diff Q2D
Comment: Notify MD if platelet count is <130,000 or decreases by 50% from baseline
10/17/24 06:00
Complete Blood Count/No Diff Q2D
Comment: Notify MD if platelet count is <130,000 or decreases by 50% from baseline
10/19/24 06:00
Complete Blood Count/No Diff Q2D
Comment: Notify MD if platelet count is <130,000 or decreases by 50% from baseline
10/21/24 06:00
Complete Blood Count/No Diff Q2D
Comment: Notify MD if platelet count is <130,000 or decreases by 50% from baseline
10/23/24 06:00
Complete Blood Count/No Diff Q2D
Comment: Notify MD if platelet count is <130,000 or decreases by 50% from baseline
10/25/24 06:00
Complete Blood Count/No Diff Q2D
Comment: Notify MD if platelet count is <130,000 or decreases by 50% from baseline
10/27/24 06:00
Complete Blood Count/No Diff Q2D
Comment: Notify MD if platelet count is <130,000 or decreases by 50% from baseline
10/29/24 06:00
Complete Blood Count/No Diff Q2D
Comment: Notify MD if platelet count is <130,000 or decreases by 50% from baseline
Abnormal Lab Results
10/13/24 10/13/24
16:07 18:35
WBC 21.0 H 10^3/uL
(4.8-10.8)
RBC 3.74 L 10^6/uL
(4.20-5.40)
Hgb 11.9 L g/dL
(12.0-16.0)
Hct 35.1 L %
(37.0-47.0)
MCH 31.8 H pg
(27.0-31.0)
RDW 14.7 H %
(11.5-14.5)
Abs Immat Gran (auto) 0.1 H 10^3/uL
(0-0.05)
Absolute Neuts (auto) 19.4 H 10^3/uL
(1.4-6.5)
Absolute Lymphs (auto) 0.7 L 10^3/uL
(1.2-3.4)
Absolute Monos (auto) 0.7 H 10^3/uL
(0.1-0.6)
Neutrophils % 92.6 H %
(42.2-75.2)
Lymphocytes % 3.5 L %
(20.5-51.1)
Sodium 131 L mmol/L
(135-145)
Potassium 3.2 L mmol/L
(3.5-5.1)
Chloride 97 L mmol/L
(98-107)
Carbon Dioxide 21 L mmol/L
(22-30)
BUN 39 H mg/dl
(7-17)
Creatinine 2.4 H mg/dL
(0.6-1.0)
Glucose 138 H mg/dl
(70-99)
Lactic Acid 3.7 H mmol/L
(0.7-2.0)
Ur Occult Blood Reflex 4+ A
(Negative)
Leukocyte Esterase Rfl 1+ A
(Negative)
Urine RBC 26-30 A /HPF
(0-2)
Urine WBC (Reflex) 11-15 A /HPF
(0-5)
Urine Bacteria (Reflex) Many A
(Negative)
Urine Albumin (Reflex) 3+ A
(Neg - Trace)
10/13/24 16:07
10/13/24 16:07
Vital Signs
Initial and Last Documented VS:
Initial Vital Signs
Temp Pulse Resp BP Pulse Ox
100 F 99 16 89/56 97
10/13/24 15:54 10/13/24 15:54 10/13/24 15:54 10/13/24 15:54 10/13/24 15:54
Last Documented Vital Signs
Temp Pulse Resp BP Pulse Ox
98.3 F 84 20 89/61 96
10/13/24 23:01 10/13/24 23:15 10/13/24 23:15 10/13/24 23:15 10/13/24 23:15
Procedures
IV Access
Indication: Emergent access required and RN unable to obtain
Performed by:: Justino Aguila PA-C
Site:: L basilic
Gauge:: 18g
Ultrasound Guidance: Yes
MDM/Problems Addressed
MDM/Problems Addressed:
Because the patient's sepsis is not immediately clear, certainly could be recurrence of her MSSA bacteremia versus hospital-acquired urinary tract infection versus C. difficile colitis. Will give broad-spectrum IV antibiotics however quite limited
due to the patient's numerous allergies thus aztreonam was ordered in addition to oral vancomycin. Patient was given 30 cc/kg fluid bolus due to significant hypotension and lactic acidosis, initially responsive however gradually became more
hypotensive requiring initiation of IV vasopressors.
Comment
Comment:
EKG independently interpreted by me shows sinus tachycardia at a rate of [address] changes concerning for ischemia however significant patient motion artifact limits interpretation
*Pulse Oximetry
SaO2: 99
Oxygen Mode of Delivery: Room air
Patient hypoxic: no
*Critical Care Note
Total Time (30-74mins, 75-104mins- exclusive of procedures): 65-minute
comment:
Critical care time: 65 minutes
Critical care time was exclusive of: Separately billable procedures, treating other patients, and teaching time
Critical care was necessary to treat or prevent imminent or life-threatening deterioration of the following conditions: Septic shock
Critical care time spent personally by me on the following activities:
[x] Review of old charts
[x] Obtaining history from patient or surrogate
[x] Ordering and review of the laboratory studies
[x] Ordering and review of radiographic studies
[x] Ordering and performing treatments and interventions
[x] Patient patient's response to treatment
[x] Development of treatment plan with patient or surrogate
ED Attending Note
-
Portions of this chart may have been created with voice recognition software.� Occasional wrong word or��sound alike� substitutions may have occurred due to the inherent limitations of voice recognition software.
Discharge Plan
Departure
Patient Disposition: Admit
Date of Disposition: 10/13/24
Time of Disposition: 18:50
Admit to: IMU
Presentation/result/management discussed w/ accepting MD/DO: Hospitalist
Discharge Problem:
Septic shock, Acute kidney injury, Acute hypokalemia, Diarrhea
Interventions
Interventions:
*Risk Screen - Suicide Last Done: 10/13/24 22:49
*General Assessment Last Done: 10/13/24 16:25
*Neglect/Abuse Screening Last Done: 10/13/24 15:57
*ED- Fall Risk Assessment Last Done: 10/13/24 16:25
*ED COVID-19 Vaccine History Last Done: 10/13/24 22:49
*Nursing Disposition Last Done: 10/13/24 21:28
ED- Cardiac Assessment Last Done: 10/13/24 16:25
ED- Neurological Assessment Last Done: 10/13/24 16:25
ED- Pulmonary Assessment Last Done: 10/13/24 16:25
ED-Skin Assessment Last Done: 10/13/24 16:25
Discharge Date and Time
Discharge Date/Time: 10/13/24 21:47
[2024-10-13 16:55] LABS: ALT (SGPT) 30 U/L (0-35)
[2024-10-13] MEDS: LR 2250 IV (16:59)
[2024-10-13 18:02] LABS: COVID-19 Antigen Negative (Negative)
[2024-10-13 18:14] LABS: Nucleated Red Blood Cells % 0 %
[2024-10-13 18:54] LABS: Urine Character Slightly Cloudy (Clear)
[2024-10-13] MEDS: AZACTAM 2000 MG IV (18:59)
[2024-10-13 19:33] LABS: Urine Squamous Cell 0-2 /LPF (Few)
[2024-10-13 19:34] LABS: Urine Red Blood Cell 26-30 /HPF (0-2)
--- NOTE | 2024-10-13 19:48 | HPS.HSE ---
Family Physician
-
Family Physician: Colton Rodriguez
Chief Complaint
-
Chills, Hypotension
History of Present Illness
Patient is a 64y F with PMH significant for breast cancer and recent long and complicated hospital stay who presents to ED complaining of fevers / chills and noted to be hypotensive at physician's office today. Patient was admitted to 08/02 -
08/22 secondary to sepsis - presumably related to chest wall chemo port. Patient was found to have MSSA bacteremia and was treated with IV Vancomycin. Bacteremia was persistent despite catheter removal and IV abx. Patient suffered embolic strokes
during her hospital stay with vision and speech changes. She was taken to the OR on 08/10 and underwent mitral valve repair / annuloplasty, MAZE procedure and left atrial appendage clip. Blood cultures after 08/10 were negative.
She continued on treatment with IV Vancomycin (and PO vancomycin for prophylaxis).
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
Patient was discharged to [place] for acute rehab where she remained until her discharge on 09/13.
Patient states that she has continued to have issues with frequent loose stools. She describes incontinence of small amounts of loose / liquid stool with standing / activity.
She denies any abdominal pain. No chest pain or dyspnea. Patient denies any sore throat, cough, change in appetite, etc. She states that she has been urinating with no issues.
She reports shaking chills and fevers at home over the past 2 days.
Today she was noted to have low BP and was sent to the ED for evaluation.
Medical History
Past Medical History
Past Medical History: Reports Cancer (Right breast cancer status post conservative lumpectomy with sentinel lymph node dissection, IDC G3 [id number] ER pos [place] neg HER2 neg Ki-67 50-60% ), HTN, Hypercholesterolemia, Hypothyroidism, Valvular Disease
(Mild mitral regurgitation. SBE.) and Other (Paroxysmal A-Fib. Bilateral embolic CVAs.)
Past Surgical History: Reports Other
Additional Past Surgical History:
08/10 - Mitral Valve Repair, MAZE procedure, left atrial appendage clip
Laparoscopic hysterectomy
Cholecystectomy
Left parotid tumor resection
Right localized lumpectomy
Sacrocolpopexy
Social History
Alcohol: None
Drug: None
Personal:
Living: With Family
Family History
Family History: Not pertinent
Allergies / Home Medications
Allergies reflects when Allergies were last updated in [facility].
Home Medications with original date entered in [facility]
Allergy/Medication List:
Patient not aware of her current medications and has no available list.
If medication reconciliation has not been performed, why?: Medication List N/A
Review of Systems
-
History Source: Patient
A 12 point ROS was completed and negative except as noted: Yes
Constitutional: Reports Fever, Fatigue and Chills
EENT: Denies Sore Throat
Respiratory: Denies Cough or Trouble Breathing
Cardiac: Denies Chest Pain, Palpitations or Syncope
Abdomen/GI: Reports Diarrhea; Denies Abdominal Pain, Nausea, Vomiting, Bloody Stools, Black Stools or Anorexia
: Denies Dysuria, Frequency, Flank Pain or Difficulty Voiding
Musculoskeletal: Denies Joint Pain or Edema
Neurological: Denies Dizzy or Headache
Psych: Denies Depression or Anxiety
Physical Exam
Vital Signs
Vital Signs
Temp Pulse Resp BP Pulse Ox
103 F H 100 22 91/51 95
10/13/24 19:45 10/13/24 19:00 10/13/24 19:00 10/13/24 19:00 10/13/24 19:00
Physical Exam
General: Other (64y F in no acute distress.)
HEENT: Moist mucous membranes and PERRLA
Respiratory: Clear; No Wheezes, Rales or Rhonchi
Cardiac: S1/S2, Regular Rhythm, Murmur (II/ LEN) and Other (well-healed midline sternotomy incision.)
GI: Soft, Non Tender, Non Distended and Normal Bowel Sounds
Musculoskeletal: No Clubbing, No Cyanosis and No Edema
Neuro: AO x 3 and Other (Mild R weakness. Mild aphasia / word finding difficulty.)
Laboratory Results
-
10/13/24 16:07
10/13/24 16:07
Laboratory Results
Lactic Acid 3.7 mmol/L (0.7-2.0) H 10/13/24 16:07
Total Bilirubin 1.0 mg/dl (0.2-1.3) 10/13/24 16:07
AST 30 U/L (14-36) 10/13/24 16:07
ALT 30 U/L (0-35) 10/13/24 16:07
Alkaline Phosphatase 82 U/L (38-126) 10/13/24 16:07
Impression/Plan
-
A/P: Patient is a 64y F with PMH significant for MSSA bacteremia, SBE and bilateral CVAs - presumed embolic - who presents to ED for evaluation of fevers / chills, hypotension and diarrhea / loose stools.
Clinical Sepsis
Lactic Acidosis
- Admit for further evaluation and treatment.
- Patient presents with tachycardia, tachypnea, leukocytosis - has some loose stool, but this is not a new / acute issue.
- Concern for recurrent bacteremia. IV vanco course completed at end of August. DONNELL done post MVR showed persistent vegetation / thrombus on mitral valve.
- Resume IV vancomycin. Repeat blood cultures.
- Follow fever curve.
- Monitor for any new / focal complaints.
- IVFs +/- pressors if needed for perfusion support.
- ID evaluation for additional recommendations.
JAMES
Hyponatremia / SIADH
Hypokalemia
- Suspect some degree of hypovolemia - ? on chronic diuretics per prior list.
- IVF support as noted above. Received sepsis bolus in the ED.
- Hold diuretic therapy.
- Potassium replacement. Check Mg.
- Nephrology evaluation for additional recommendations - required intermittent Samsca dosing during prior admission.
- Bladder scan given prior issues with urinary retention.
Diarrhea
- Patient has had essentially chronic diarrhea since last admission.
- Was controlled with anti-diarrheal medications.
- CDiff antigen positive / toxin negative during prior testing - on prophylactic / once daily PO Vanco.
- Follow for stool frequency / volume / etc.
- Follow-up repeat stool studies.
- Restart antidiarrheals if infection is ruled out.
CVA - Likely Embolic
- Persistent R weakness, vision change and speech impairment - no new focal deficits.
- Continue PT / OT / Speech.
Paroxysmal Atrial Fibrillation
- Stable. Continue amiodarone once daily for now.
- Monitor on telemetry.
- Hold Eliquis acutely given JAMES - start bridging heparin gtt for now given known MV thrombus / recent embolic CVAs / etc.
Breast Cancer
- s/p bilateral mastectomies. Chemotherapy remains on hold following prior hospitalization.
Hypothyroidism
- Continue T4 supplementation.
DVT Prophylaxis: IV Heparin
Code Status: Full
[2024-10-13] MEDS: TYLENOL 1000 MG PO (19:56)
[2024-10-13] MEDS: FIRVANQ 125 MG PO (19:56)
[2024-10-13] MEDS: KCL 270 MEQ IV (19:56)
[2024-10-13] MEDS: LEVOPHED 250 IV (20:06)
[2024-10-13] MEDS: KLOR-CON 20 MEQ PO (22:10)
[2024-10-13] MEDS: HEPARIN 25000 UNITS/250 ML IV (22:11)
[2024-10-13] MEDS: LR 1000 IV (22:11)
[2024-10-13 22:20] LABS: Hematocrit 30.3 % (37.0-47.0); Hemoglobin 10.4 g/dL (12.0-16.0); Mean Corp Hgb Conc. 34.3 g/dL (33.0-37.0); Mean Corpuscular Volume 91.3 fL (81.0-99.0); Platelet Count 136 10^3/uL (130-400); Red Cell Dist. Width 14.8 % (11.5-14.5)
--- NOTE | 2024-10-13 22:22 | PHA.VAN.IN ---
Addendum entered and electronically signed by Emily Odonnell [facility] 10/13/24 22:35:
Correction Vanco Random level scheduled 10/14 w. AM labs.
Original Note:
Assessment
- Assessment
Renal Function: Other
Plan
- Plan
Initial / Loading Dose: 2000 MG IV ~ 2300
Maintenance Regimen: Dosing by level
Monitoring: Random 10/13 with AM lab
Pharmacokinetics Vancomycin I
- -
Patient Age: 64
Patient Sex: Female
Vancomycin Day #: 1
Indication: Bacteremia
Requesting Provider: Dr Jason Seo
Pertinent Antimicrobial Allergies:
Bactrim, pcn and cephalosporin w. hives
Cirpo w. unknown reaction
Height / Weight:
Height 5 ft 2 in
Actual Weight 72.3 kg
Pertinent Past Medical History: Breast CA. Patient was admitted to 08/02 - 08/22 secondary to sepsis
- Vital Signs / Lab Results
Temp Pulse Resp BP Pulse Ox
98.3 F 102 28 87/50 92
10/13/24 22:11 10/13/24 20:30 10/13/24 20:30 10/13/24 20:30 10/13/24 20:30
Lab Results - Hematology
10/13/24 10/13/24
16:07 22:02
WBC 21.0 H 16.6 H
Lab Results - Chemistry
10/13/24
16:07
BUN 39 H
Creatinine 2.4 H
Estimated Creat Clear 22
Albumin 3.9
10/13/24
16:07
Lactic Acid 3.7 H
Lab Results - Urine
10/13/24
18:35
Urine Nitrite (Reflex) Negative
Leukocyte Esterase Rfl 1+ A
Urine WBC (Reflex) 11-15 A
Ur Squamous Epith Cells 0-2
Urine Bacteria (Reflex) Many A
Microbiology Results
10/13/24 17:09 Influenza Types A & B (DAHLIA) - Final
Nasal Swab Negative for Influenza A & B, NAAT
Negative results must be combined with clinical observations
and patient history.
Nucleic Acid Amplification test (NAAT)performed on the
[employer] platform.
[2024-10-13 22:27] LABS: APTT 37.1 Sec (23.4-35.0)
--- NOTE | 2024-10-13 22:49 | PTCARENOTE ---
Pt received pt at approx 21:30 from ED to ICU room 3361, IMU level of care. Pt accompanied by son. Ox3, drowsy, easily arousable to verbal stimuli. SR, HR 80s. Radial and DP pulses palpable. RA, breath sounds clear. pulse ox 92-94% while asleep, 2L
NC added--94-96% at this time. +BS, no BM noted at this time. Purewick in place, no urine output noted. Skin intact. Safe environment maintained, call lopez within reach, family at bedside.
[2024-10-14] VITALS (52 sets, daily range): BP systolic 82–116; BP diastolic 50–86; PULSE 79; O2SAT 98; BMI 29.2
[2024-10-14] MEDS: VANCOCIN 540 MG IV (00:11)
[2024-10-14] MEDS: FIRVANQ 125 MG PO ×4 (00:11→17:06)
[2024-10-14 04:57] LABS: Hematocrit 30.3 % (37.0-47.0); Hemoglobin 10.3 g/dL (12.0-16.0); Mean Corp Hgb Conc. 34.0 g/dL (33.0-37.0); Mean Corpuscular Volume 92.7 fL (81.0-99.0); Platelet Count 117 10^3/uL (130-400); Red Cell Dist. Width 15.2 % (11.5-14.5)
[2024-10-14 04:59] LABS: APTT 46.8 Sec (23.4-35.0)
[2024-10-14 05:32] LABS: ALT (SGPT) 24 U/L (0-35); AST (SGOT) 36 U/L (14-36); Albumin 2.9 g/dl (3.5-5.0); Alkaline Phosphatase 61 U/L (38-126); Blood Urea Nitrogen 33 mg/dl (7-17); Calcium 8.4 mg/dl (8.4-10.2); Carbon Dioxide 21 mmol/L (22-30); Chloride 105 mmol/L (98-107); Estimated Creatinine Clearance 35 ml/min; Glucose 127 mg/dl (70-99); Magnesium 1.4 mg/dl (1.6-2.3); Potassium 3.7 mmol/L (3.5-5.1); Sodium 133 mmol/L (135-145); Total Protein 5.8 g/dl (6.3-8.2); eGFR 38.43
[2024-10-14] MEDS: SYNTHROID 50 MCG PO (06:24)
[2024-10-14] MEDS: KLOR-CON 20 MEQ PO ×2 (07:41→19:58)
[2024-10-14] MEDS: TYLENOL 650 MG PO (07:42)
[2024-10-14] MEDS: LR 1000 IV ×2 (07:43→12:38)
[2024-10-14] MEDS: PACERONE 200 MG PO (07:46)
--- NOTE | 2024-10-14 07:54 | PTCARENOTE ---
Assumed care of pt. approx 0700.
Febrile 101.3 (PO). Treated w. PRN APAP.
Hypotensive via NIBP --> Norepi Uptitrated.
Supplemental 02 weaned to RA trial.
Provider updated via TT.
--- NOTE | 2024-10-14 08:12 | PHA.VAN.FU ---
Addendum entered and electronically signed by Bessie Campbell [facility] 10/14/24 08:27:
Agree with assessment and plan
Original Note:
Vancomycin Assessment / Plan
- Assessment
Renal Function: SCR Decreasing
WBC's are: Trending Down
In the past 24 hrs, patient has been: Febrile
- Assessment - Therapeutic Drug Monitoring
Random Level: 38.2 - drawn ~4.5H after 2000mg load
- Dosing Plan
Dosing by Level: Hold off on dosing today
- Monitoring Plan
Random Level: 10/15 0600
- Follow Up
Pharmacy will continue to follow.
Vancomycin Follow UP
- -
Patient Age: 64
Patient Sex: Female
Vancomycin Day #: 1
Indication: Bacteremia
Requesting Provider: Dr Jason Seo
Pertinent Antimicrobial Allergies:
trimethoprim/sulfamethoxazole - hives
penicillins - hives
cephalosporins - unknown reaction
ciprofloxacin - unknown reaction
Height / Weight:
Height 5 ft 2 in
Actual Weight 72.3 kg
Pertinent Past Medical History: breast cancer
- Vital Signs / Lab Results
Temp Pulse Resp BP Pulse Ox
101.3 F H 106 22 107/65 92
10/14/24 07:30 10/14/24 07:46 10/14/24 06:15 10/14/24 07:46 10/14/24 07:59
Lab Results - Hematology
10/13/24 10/13/24 10/14/24
16:07 22:02 04:36
WBC 21.0 H 16.6 H 14.5 H
Lab Results - Chemistry
10/13/24 10/14/24
16:07 04:36
BUN 39 H 33 H
Creatinine 2.4 H 1.5 H
Estimated Creat Clear 22 35
Albumin 3.9 2.9 L
08/10/13/24 10/14/24
16:07 22:02 03:48
Lactic Acid 3.7 H 1.1 Cancelled
10/14/24
09:48
Lactic Acid Cancelled
Lab Results - Urine
10/13/24
18:35
Urine Nitrite (Reflex) Negative
Leukocyte Esterase Rfl 1+ A
Ur Squamous Epith Cells 0-2
Microbiology Results
10/13/24 17:09 Blood Culture - Preliminary
Blood/Venous Positive culture in progress
Gram Stain - Preliminary
10/13/24 16:07 Blood Culture - Preliminary
Blood/Venous Positive culture in progress
Gram Stain - Preliminary
10/13/24 17:09 Influenza Types A & B (DAHLIA) - Final
Nasal Swab Negative for Influenza A & B, NAAT
Negative results must be combined with clinical observations
and patient history.
Nucleic Acid Amplification test (NAAT)performed on the
[employer] platform.
Therapeutic Drug Monitoring
Random Vancomycin 38.2 ug/ml 10/14/24 04:36
--- NOTE | 2024-10-14 09:06 | PTOTSP ---
Speech Therapy Evaluation:
Pt with acute on chronic risk factors of dysphagia including recent embolic CVAs (07/2024), compounded by generalized weakness in the setting of current medical illness/sepsis. Pt febrile and WBC increased. Sepsis thought to potentially be related to
recurrent bacteremia. No acute cardiopulmonary process identified on CXR and oropharyngeal swallow appeared functional at bedside.
Recommend:
1. Regular solids and thin liquids
2. Meds as tolerated. Pt prefers large pills crushed in puree
3. General aspiration precautions
4. MANAGER OF APPLICATION DEVELOPMENT to s/o - please reconsult as indicated
--- NOTE | 2024-10-14 09:29 | CON.ID ---
Consultation
-
Date/Time Consultation Requested: October 13, 2024 501
Date/Time Consultation Performed: October 14, 2024 0930
Requesting Provider: Dr. Rashid Gomez
Performing Provider: Dr. Sofy Roy
Reason for Consultation: Sepsis/SBE
Chief Complaint / Past History
Chief Complaint
Fever and chills
History of Present Illness
64-year-old female well-known to me with recent diagnosis of right breast cancer status post lumpectomy, adjuvant chemotherapy (last received August 01) who was recently hospitalized from August 02 -August 21 with sustained MSSA bacteremia, CLABSI, port
removed, cata[place] mitral valve endocarditis with cardioembolic CVA/acute left vision loss and right-sided weakness status post open radical mitral valve repair 08/10/24. She was at [facility] from August 23 - September 13. She completed IV vancomycin x 6
weeks from valve replacement, through September 21, 2024. She was doing well until 3 days ago when she developed fevers, chills, weakness. Also with diarrhea for the past 3 days. No cough or shortness of breath. No headaches. No chest pain. No
nausea vomiting abdominal pain. No dysuria or urinary frequency. No recent travel. She has not resumed chemotherapy. She presented to the ER last night , febrile 103, white count 21, hypotensive. blood cultures are now positive for
Staphylococcus aureus.
Past History
Additional Past Medical History:
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
Cardio-embolic CVA with left vision loss
Right breast cancer status post lumpectomy, was on adjuvant chemo, last received 08/01/24
Hypertension
Hypothyroidism
Atrial fib
Anxiety
Left Parotid gland tumor excision 2024
Port placement -> dc'd 08/17
Cholecystectomy
Hysterectomy
Finger tumor radical resection 1985
Sacrocolpopexy
Allergy History:
apricot (Apricot) Allergy (Verified 07/09/16 14:39)
Hives
blueberry Allergy (Verified 08/03/24 21:44)
Hives
cefprozil (From Cefzil) Allergy (Verified 09/01/15 14:39)
Hives
Cephalosporins Allergy (Verified 05/24/24 10:58)
Unknown
ciprofloxacin (From Cipro) Allergy (Verified 05/24/24 10:58)
Unknown
dextromethorphan (From [place] DMT) Allergy (Verified 05/24/24 10:58)
Unknown
Penicillins Allergy (Verified 09/01/15 14:39)
Hives
pyrilamine (From [place] DMT) Allergy (Verified 05/24/24 10:58)
Unknown
scallops Allergy (Verified 05/24/24 11:02)
Unknown
Sulfa (Sulfonamide Antibiotics) (Sulfa(Sulfonamide Antibiotics)) Allergy (Verified 09/01/15 14:39)
Hives
sulfamethoxazole (From Bactrim) Allergy (Verified 09/01/15 14:39)
Hives
trimethoprim (From Bactrim) Allergy (Verified 09/01/15 14:39)
Hives
venom-honey bee Allergy (Verified 08/03/24 21:44)
Hives
Medications Reviewed: Yes
Current Antibiotics:
Vancomycin IV
Vancomycin po
Social History
Tobacco: Former Smoker
Alcohol: Occasional
Drug: None
Personal:
Living: With Family
Family History
Family History: Not Pertinent
Review of Systems
Review of Systems
General: Fever, Chills and Change in Appetite
HEENT: Negative Sinus Problems, Headache or Pharyngitis
Cardiovascular: Negative Chest Pain or Dyspnea
Respiratory: Negative Dyspnea or Cough
Gasteroenterology: Diarrhea; Negative Nausea or Vomiting
Genital / Urological: Negative Dysuria or Flank Pain
Endocrine: Weakness
Skin / Hair / Nails: Negative Rash
Neurological: Negative Dizziness
All systems: All other systems were reviewed and were negative
Vital Signs
Temp Pulse Resp BP Pulse Ox
101.3 F H 105 30 92/60 96
10/14/24 07:30 10/14/24 08:00 10/14/24 08:00 10/14/24 08:00 10/14/24 08:31
Selected Entries
10/13/24
19:45
Temp 103 F H
Physical Exam
Physical Exam
Constitutional: No Acute Distress and Comfortable
Eyes: No Conjunctival Hemorrhage and Sclera Anicteric
Cardiovascular: Regular Rate and S1/S2
Pulmonary: Clear
Gastrointestinal: Soft, Non Tender, Non Distended, Normal Bowel Sounds and Decreased Bowel Sounds
Genito-Urinary: Negative CVA Tenderness
Extremities: Negative Edema
Musculoskeletal: Negative Spinal Tenderness
Neurological: AO x 3
Lab / Diagnostic Study Results
10/14/24 04:36
10/14/24 04:36
Abs Immat Gran (auto) 0.1 10^3/uL (0-0.05) H 10/13/24 16:07
Absolute Neuts (auto) 19.4 10^3/uL (1.4-6.5) H 10/13/24 16:07
Absolute Lymphs (auto) 0.7 10^3/uL (1.2-3.4) L 10/13/24 16:07
Absolute Monos (auto) 0.7 10^3/uL (0.1-0.6) H 10/13/24 16:07
Absolute Basos (auto) 0.1 10^3/uL (0-0.2) 10/13/24 16:07
Immature Gran % 0.4 % (0-0.5) 10/13/24 16:07
Neutrophils % 92.6 % (42.2-75.2) H 10/13/24 16:07
Lymphocytes % 3.5 % (20.5-51.1) L 10/13/24 16:07
Monocytes % 3.3 % (1.7-9.3) 10/13/24 16:07
Eosinophils % 0.0 % (0-6) 10/13/24 16:07
Basophils % 0.2 % (0-2) 10/13/24 16:07
Lactic Acid Cancelled 10/14/24 09:48
Ur Squamous Epith Cells 0-2 /LPF (Few) 10/13/24 18:35
Microbiology Results
Micro:
10/13/24 16:07 Blood Culture - Preliminary
Blood/Venous Staphylococcus aureus
Gram Stain - Preliminary
10/13/24 17:09 Blood Culture - Preliminary
Blood/Venous Positive culture in progress
Gram Stain - Preliminary
10/13/24 18:35 Urine Culture - Pending
Urine
10/13/24 17:09 Influenza Types A & B (DAHLIA) - Final
Nasal Swab Negative for Influenza A & B, NAAT
Negative results must be combined with clinical observations
and patient history.
Nucleic Acid Amplification test (NAAT)performed on the
[email or web address] platform.
10/13/24 CXR: No acute cardiopulmonary process.
10/07/24 DONNELL: Adjacent or possibly arising from the ring near the posterior leaflet, there is a mobile echogenic mass (0.74cm x 1.23cm). No signficant regurgitation. Mitral valve gradient pk/mean 12/5mmHg.
Compared to the Intraop DONNELL report from 08/10/24, the finding associated with the mitral valve reported is in similar location. Measurements differ a bit (0.7x0.6cm on the prior)
Assessment / Plan
# Relapse complicated MSSA bacteremia
# Mitral valve annuloplasty repair infective endocarditis
# Septic shock, on pressor, fever, leukocytosis
# JAMES
# Allergy to PCN, cephalosporin, cipro, sulfa
#Recent history of sustained MSSA bacteremia, catawba mitral valve IE, [employer] septic emboli with left vision loss
. 08/10/24 s/p open radical mitral valve repair debridement of annulus, patch repair, annuloplasty with 30 mm band
. Completed IV Vancomycin through 09/21/24 (6 weeks from MV repair)
Plan:
- Of note 10/07 outpt DONNELL: mobile echogenic mass (0.74cm x 1.23cm) arising from adjacent or from annuloplasty ring MV
- Blood cx x2 S. aureus
- repeat blood cx's.
- Will challenge with cefazolin IV and monitor for adverse reactions.
Cefazolin more effective against MSSA than IV Vanco.
- Continue IV vancomycin for now. Will DC if she tolerates cefazolin.
-Check stool for C. difficile if diarrhea persists.
- Trend vitals, wbc
# Conditions DATABASE ARCHITECT
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
Cardio-embolic CVA with left vision loss
Right breast cancer status post lumpectomy, was on adjuvant chemo, last received 08/01/24
Hypertension
Hypothyroidism
Atrial fib
Anxiety
Left Parotid gland tumor excision 2024
Port placement -> dc'd 08/17
Cholecystectomy
Hysterectomy
Finger tumor radical resection 1985
Sacrocolpopexy
Care Review
Plan reviewed with: Nurse and Other (Pharmacist Adrian)
--- NOTE | 2024-10-14 09:50 | W.PN.HOSP.TC ---
Today's Communication/Plan
-
levophed for pressure support
+staph aureus, cont vanc
ID consulted
JAMES improving so resume eliquis
critical care time 35min
Assessment / Plan
Assessment / Plan
A/P: Patient is a 64y F with PMH significant for MSSA bacteremia, SBE and bilateral CVAs - presumed embolic - who presents to ED for evaluation of fevers / chills, hypotension and diarrhea / loose stools.
Septic Shock 2/2 Staph Aureus bacteremia/Endocarditis
tachycardia, tachypnea, leukocytosis - has some loose stool, but this is not a new / acute issue.
- Concern for recurrent bacteremia. IV vanco course completed at end of August. DONNELL done post MVR showed persistent vegetation / thrombus on mitral valve.
- Continue IV vancomycin. Staph Aureus Positive blood cultures.
- Follow fever curve.
- Monitor for any new / focal complaints.
- IVFs
Levophed, wean off as able, if requirements increase will upgrade to ICU and consult coremaker bench
- ID consulted
JAMES -improving
Hyponatremia / SIADH
Hypokalemia
- sepsis/hypovolemia/prerenal
- IVF support as noted above. Received sepsis bolus in the ED. Improving.
- Hold diuretic therapy.
- Potassium replacement. Check Mg.
- Nephrology evaluation for additional recommendations - required intermittent Samsca dosing during prior admission.
- Bladder scan given prior issues with urinary retention.
Diarrhea
- Patient has had essentially chronic diarrhea since last admission.
- Was controlled with anti-diarrheal medications.
- CDiff antigen positive / toxin negative during prior testing - on prophylactic / once daily PO Vanco.
- Follow for stool frequency / volume / etc.
- Follow-up repeat stool studies.
- Restart antidiarrheals if infection is ruled out.
CVA - Likely Embolic
- Persistent R weakness, vision change and speech impairment - no new focal deficits.
- Continue PT / OT / Speech.
Paroxysmal Atrial Fibrillation
- Stable. Continue amiodarone once daily for now.
- Monitor on telemetry.
- resume eliquis
Breast Cancer
- s/p bilateral mastectomies. Chemotherapy remains on hold following prior hospitalization.
Hypothyroidism
- Continue T4 supplementation.
DVT Prophylaxis: eliquis
Code Status: Full
Anticipated Discharge: > 48 hours
Subjective/Interval History
-
Date of Service: October 14, 2024
Pt having diarrhea but otherwise denies issues - no f/c/cp/sob/n/v
Objective Data
-
Labs:
Laboratory Results
10/13/24 10/14/24 10/14/24
22:02 04:36 11:15
WBC 16.6 H 14.5 H
Hgb 10.4 L 10.3 L
Hct 30.3 L 30.3 L
Plt Count 136 117 L
APTT 37.1 H 46.8 H Pending
Sodium 133 L
Potassium 3.7
Chloride 105
Carbon Dioxide 21 L
BUN 33 H
Creatinine 1.5 H
Glucose 127 H
Calcium 8.4
Total Bilirubin 1.0
AST 36
ALT 24
Alkaline Phosphatase 61
Vital Signs:
Vital Signs
Temp Pulse Resp BP Pulse Ox
101.3 F H 105 30 92/60 96
10/14/24 07:30 10/14/24 08:00 10/14/24 08:00 10/14/24 08:00 10/14/24 08:31
I&O
10/13/24 10/14/24 10/15/24
06:59 06:59 06:59
Intake Total 1712.0 / 1712.0 283 / 283
Balance 1712.0 / 1712.0 283 / 283
Review of Systems
-
All other systems: Reviewed and negative
Physical Exam
-
General: No Apparent Distress and Sweats
HEENT: Moist Mucous Membranes, Anicteric and PERRLA
Respiratory: Clear to Auscultation; Negative Wheezes, Rales or Rhonchi
Cardiac: Regular Rhythm and S1/S2; Negative Murmur, Rub or Gallop
GI: Soft, Nontender, Nondistended and Normal Bowel Sounds
Musculoskeletal: No Edema
Skin: Warm and Dry; Negative Rash, Ulcers or Lesions
Neuro: Awake and AO x 3
Hematologic / Lymphatic: No Lymphadenopathy
Psych: Calm
Data Reviewed
-
Labs: Labs Reviewed by me and Discussed with Patient
[2024-10-14] MEDS: ANCEF 10 IV ×2 (10:45→17:06)
--- NOTE | 2024-10-14 10:51 | W.CON.NEPH ---
Consultation
-
Date/Time Consultation Requested: October 13, 2024 at 2000
Date/Time Consultation Performed: October 14, 2024 at 10 AM
Requesting Provider: Rashid Gomez
Performing Provider: Dr. Maher
Reason for Consultation: Electrolyte abnormality
Medical History
-
Chief Complaint: Acute kidney injury
History of Present Illness:
64y F with PMH significant for breast cancer and recent long and complicated hospital stay who presents to ED complaining of fevers / chills and noted to be hypotensive at physician's office today. Patient was admitted to 08/02 - 08/22
secondary to sepsis - presumably related to chest wall chemo port. Patient was found to have MSSA bacteremia and was treated with IV Vancomycin. Bacteremia was persistent despite catheter removal and IV abx. Patient suffered embolic strokes
during her hospital stay with vision and speech changes. She was taken to the OR on 08/10 and underwent mitral valve repair / annuloplasty, MAZE procedure and left atrial appendage clip. Blood cultures after 08/10 were negative.
She continued on treatment with IV Vancomycin (and PO vancomycin for prophylaxis).
Patient seen in renal consultation acute kidney injury. She was previously seen by us for hyponatremia
Past Medical History
Right breast cancer status post conservative lumpectomy with sentinel lymph node dissection, IDC G3 [id number] ER pos VA neg HER2 neg Ki-67 50-60% ), HTN, Hypercholesterolemia, Hypothyroidism, Valvular Disease (Mild mitral regurgitation.) and Other
(History of proximal atrial tachycardia without known atrial fibrillation
Past Surgical History: Other (Laparoscopic hysterectomy Cholecystectomy Left parotid tumor resection Right localized lumpectomy Sacrocolpopexy)
Social History
Tobacco: Non-Smoker
Alcohol: None
Personal:
Living: With Family
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
Family History
no CKD
Family History: Not Pertinent
Allergies / Home Medications
Allergy/AdvReac Type Severity Reaction Status Date / Time
apricot (Apricot) Allergy Hives Verified 09/01/15 14:39
blueberry Allergy Hives Verified 08/03/24 21:44
cefprozil (From Cefzil) Allergy Hives - Verified 10/14/24 09:49
added
11/03/2011
Cephalosporins Allergy Unknown - Verified 10/14/24 09:56
added in
2011
ciprofloxacin (From Cipro) Allergy Unknown - Verified 10/14/24 09:56
added
06/22/2006
dextromethorphan (From Allergy Unknown Verified 05/24/24 10:58
[place] DMT)
Penicillins Allergy Hives - Verified 10/14/24 09:56
from prior
to or on
06/22/2006
pyrilamine (From [place] DMT) Allergy Unknown Verified 05/24/24 10:58
scallops Allergy Unknown Verified 05/24/24 11:02
Sulfa (Sulfonamide Allergy Hives - Verified 10/14/24 09:56
Antibiotics) added
(Sulfa(Sulfonamide 06/22/2006
Antibiotics))
sulfamethoxazole (From Allergy Hives - Verified 10/14/24 09:56
Bactrim) added
06/22/2006
trimethoprim (From Bactrim) Allergy Hives - Verified 10/14/24 09:56
added
06/22/2006
venom-honey bee Allergy Hives Verified 08/03/24 21:44
�Medication �Instructions �Recorded �Confirmed �Type
lorazepam 0.5 mg tablet 0.5 mg PO DAILYPRN PRN anxiety 11/03/11 10/07/24 History
levothyroxine 50 mcg tablet 50 mcg PO DAILY Thyroid 05/24/24 08/22/24 History
amiodarone 200 mg tablet (Pacerone) 200 mg PO DAILY Arrhythmia 30 days 09/13/24 10/07/24 Rx
#30 tabs
apixaban 5 mg tablet (Eliquis) 5 mg PO BID Arrhythmia 30 days #60 07/22/25 08/15/25 Rx
tabs
lidocaine 4 % topical patch 1 patch topical DAILY pain-low 09/13/24 10/07/24 Rx
back pain 30 days #30 ea
metoprolol succinate 25 mg 25 mg PO DAILY Heart 09/13/24 10/07/24 Rx
tablet,extended release 24 hr disease/condition 30 days #30 tabs
potassium citrate 10 mEq (1,080 20 meq (2 x 10 mEq (1,080 mg)) PO 09/13/24 10/07/24 Rx
mg) tablet,extended release DAILY supplement 30 days #60 tabs
furosemide 40 mg tablet 40 mg PO DAILY Fluid 10/07/24 10/07/24 History
retention/Swelling
Review of Systems
-
Diarrhea
All other systems: Negative unless noted
Physical Exam
Vital Signs
Vital Signs
Temp Pulse Resp BP Pulse Ox
101.3 F H 83 28 100/70 97
10/14/24 07:30 10/14/24 10:30 10/14/24 10:30 10/14/24 10:30 10/14/24 10:30
Lab Results
WBC 14.5 10^3/uL (4.8-10.8) H 10/14/24 04:36
RBC 3.27 10^6/uL (4.20-5.40) L 10/14/24 04:36
Hgb 10.3 g/dL (12.0-16.0) L 10/14/24 04:36
Hct 30.3 % (37.0-47.0) L 10/14/24 04:36
Plt Count 117 10^3/uL (130-400) L 10/14/24 04:36
Sodium 133 mmol/L (135-145) L 10/14/24 04:36
Potassium 3.7 mmol/L (3.5-5.1) 10/14/24 04:36
Chloride 105 mmol/L (98-107) 10/14/24 04:36
Carbon Dioxide 21 mmol/L (22-30) L 10/14/24 04:36
BUN 33 mg/dl (7-17) H 10/14/24 04:36
Creatinine 1.5 mg/dL (0.6-1.0) H 10/14/24 04:36
eGFR 38.43 10/14/24 04:36
Glucose 127 mg/dl (70-99) H 10/14/24 04:36
Calcium 8.4 mg/dl (8.4-10.2) 10/14/24 04:36
Albumin 2.9 g/dl (3.5-5.0) L 10/14/24 04:36
Physical Exam
General no acute distress
HEENT no cephalic atraumatic extraocular muscle intact no scleral icterus no JVD neck supple
lungs clear to auscultation bilateral
heart regular S1-S2 positive
abdomen soft nontender positive bowel sounds
extremities no edema pulses present bilateral
Neurologically nonfocal alert and oriented x 3
Skin no lesions no abrasions no petechiae
Psych normal affect no bizarre behavior
Data Reviewed
-
Radiology: Image Personally Visualized and interpreted
Assessment/Plan
-
64y F with PMH significant for breast cancer and recent long and complicated hospital stay who presents to ED complaining of fevers / chills and noted to be hypotensive at physician's office today. Patient was admitted to 08/02 - 08/22
secondary to sepsis - presumably related to chest wall chemo port. Patient was found to have MSSA bacteremia and was treated with IV Vancomycin through September 21. Bacteremia was persistent despite catheter removal and IV abx. Patient suffered
embolic strokes during her hospital stay with vision and speech changes. She was taken to the OR on 08/10 and underwent mitral valve repair / annuloplasty, MAZE procedure and left atrial appendage clip. Blood cultures after 08/10 were negative.
She continued on treatment with IV Vancomycin (and PO vancomycin for prophylaxis).
Patient seen in renal consultation acute kidney injury. She was previously seen by us for hyponatremia
Impression.
Acute kidney injury admitting creatinine 2.4 with baseline 0.9= hemodynamic mediated hypovolemia sepsis
Bacteremia recurrent= staph
Breast CA
Plan.
Continue lactated Ringer's
Renal dose all medications for current GFR until reaches steady state
Monitor urine output
Unable to use PureWick catheter as patient has diarrhea= no need for Adair catheter at this
Pressor support
Discussed with ICU team

33 minutes CC time
[2024-10-14] MEDS: ELIQUIS 5 MG PO ×2 (11:04→19:58)
--- NOTE | 2024-10-14 11:11 | PTCARENOTE ---
Heparin gtt D/C --> bridge back to home Eliquis in setting of resolving JAMES.
Ancef given --> reaction protocol reviewed w. Clinical pharmacy prior to admin. No reactions noted at this time.
Norepi remains on downtitrated back to 2mcg.
Did not tolerate RA --> placed back on 2L N/C.
--- NOTE | 2024-10-14 12:53 | CM ---
Initial assessment completed with patient who lives with her in a 2 story home plus basement with B/B on 1st, 5 steps and ramp to enter. 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 Her does the
laundry and dishes. She has a SPC, commode, hospital bed and walk in shower. No in-home services. No HC-POA. No service. Patient was at from 08/02/24 to 08/22/24 then discharged to [facility] and was then discharged to home on 09/13/24.
Patient has not been on chemo since her last admission to . PCP is Dr. Colton Rodriguez. Pharmacy is [facility] in [place]. Discharge POC: TBD.
[2024-10-14] MEDS: MAGNESIUM SULFATE 50 IV (13:10)
--- NOTE | 2024-10-14 21:32 | PTCARENOTE ---
Received patient in bed awake and alert x3. Does not verbalize pain. Plan of care for the shift reviewed with the patient. NSR on the monitor. MAP>65. Occasional nonproductive cough. Skin tear to right lateral axillary- baseline per the patient.
Silicone foam placed. Patient cleansed and linens changed. Safety measures maintained. Call lights and personal belongings are within reach.
[2024-10-15] VITALS (19 sets, daily range): BP systolic 82–111; BP diastolic 53–76; BMI 29.9
[2024-10-15] MEDS: FIRVANQ 125 MG PO ×2 (00:33→06:00)
[2024-10-15] MEDS: ANCEF 10 IV ×4 (00:33→23:38)
[2024-10-15] MEDS: LR 1000 IV (02:25)
[2024-10-15 04:35] LABS: Hematocrit 27.0 % (37.0-47.0); Hemoglobin 9.1 g/dL (12.0-16.0); Mean Corp Hgb Conc. 33.7 g/dL (33.0-37.0); Mean Corpuscular Volume 92.8 fL (81.0-99.0); Platelet Count 61 10^3/uL (130-400); Red Cell Dist. Width 15.2 % (11.5-14.5)
[2024-10-15 04:47] LABS: ALT (SGPT) 18 U/L (0-35); AST (SGOT) 30 U/L (14-36); Albumin 2.4 g/dl (3.5-5.0); Alkaline Phosphatase 66 U/L (38-126); Blood Urea Nitrogen 25 mg/dl (7-17); Calcium 8.5 mg/dl (8.4-10.2); Carbon Dioxide 22 mmol/L (22-30); Chloride 107 mmol/L (98-107); Estimated Creatinine Clearance 52 ml/min; Glucose 111 mg/dl (70-99); Potassium 3.2 mmol/L (3.5-5.1); Sodium 133 mmol/L (135-145); Total Protein 5.0 g/dl (6.3-8.2); eGFR > 60.00
[2024-10-15 05:43] LABS: Absolute Neutrophils -Man Diff 11.5 10^3/uL (1.4-6.5); Macrocytosis 3+; Normal RBC Morphology No; Platelets Checked Yes; Total Cells Counted 100
[2024-10-15] MEDS: KCL 270 MEQ IV (05:58)
[2024-10-15] MEDS: SYNTHROID 50 MCG PO (06:00)
--- NOTE | 2024-10-15 06:05 | PTCARENOTE ---
Potassium chloride 40 meq rider for potassium of 3.2.
[2024-10-15] MEDS: KLOR-CON 20 MEQ PO ×2 (08:36→20:02)
[2024-10-15] MEDS: PACERONE 200 MG PO (08:36)
[2024-10-15] MEDS: ELIQUIS 5 MG PO (08:36)
--- NOTE | 2024-10-15 08:46 | W.PN.ID1 ---
Date of Service
Date of Service: October 15, 2024
Today's Communication
Recommend cardiology consult.
Assessment / Plan
# Relapse complicated MSSA bacteremia
# Mitral valve annuloplasty repair infective endocarditis
# s/p Septic shock, on pressor
# fever - resolving
# leukocytosis -improving
# JAMES - resolving
# Allergy to PCN, cephalosporin, cipro, sulfa; tolerating cephalosporin this admission
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
. 08/10/24 s/p open radical mitral valve repair debridement of annulus, patch repair, annuloplasty with 30 mm band
. Completed IV Vancomycin through 09/21/24 (6 weeks from MV repair)
Plan:
- Of note 10/07 outpt DONNELL: mobile echogenic mass (0.74cm x 1.23cm) arising from adjacent or from annuloplasty ring MV
- Blood cx x2 S. aureus
- repeat blood cx's daily until persistently clear
- Continue cefazolin.
- Recommend cardiology and CTS consult.
- Trend temps/wbc.
- Diarrhea resolved. Cancel C. diff test, po Vanco, and enhanced isolation.
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
Cardio-embolic CVA with left vision loss
Right breast cancer status post lumpectomy, was on adjuvant chemo, last received 08/01/24
Hypertension
Hypothyroidism
Atrial fib
Anxiety
Left Parotid gland tumor excision 2024
Port placement -> dc'd 08/17
Cholecystectomy
Hysterectomy
Finger tumor radical resection 1985
Sacrocolpopexy
Chief Complaint
-: Bacteremia
Subjective / Review of Systems
Feels better today. No further diarrhea.
Tolerating cefazolin.
Vital Signs / Physical Exam
Vital Signs
Vital Signs
Temp Pulse Resp BP Pulse Ox
99.6 F 98 20 97/70 95
10/15/24 03:06 10/15/24 08:36 10/15/24 05:30 10/15/24 08:36 10/15/24 00:30
Physical Exam
Constitutional: No Acute Distress and Comfortable
Cardiovascular: Regular Rate and S1/S2
Pulmonary: Clear
Gastrointestinal: Soft, Non Tender and Non Distended
Extremities: Negative Edema or Splinter Hemorrhage
Musculoskeletal: Negative Joint Swelling, Joint Effusion or Spinal Tenderness
Neurological: AO x 3
Objective Data
Lab Data
Lab Results
10/15/24 03:58
10/15/24 03:58
APTT Cancelled 10/14/24 10:32
Estimated Creat Clear 52 ml/min 10/15/24 03:58
Lactic Acid Cancelled 10/14/24 09:48
Total Bilirubin 0.6 mg/dl (0.2-1.3) 10/15/24 03:58
AST 30 U/L (14-36) 10/15/24 03:58
ALT 18 U/L (0-35) 10/15/24 03:58
Alkaline Phosphatase 66 U/L (38-126) 10/15/24 03:58
Most recent labs reviewed.
Micro Results:
10/14/24 10:11 Blood Culture - Preliminary
Blood/Venous Positive culture in progress
Gram Stain - Preliminary
10/14/24 10:11 Blood Culture - Preliminary
Blood/Venous Positive culture in progress
Gram Stain - Preliminary
10/13/24 16:07 Blood Culture - Preliminary
Blood/Venous Staphylococcus aureus
Gram Stain - Preliminary
10/13/24 17:09 Blood Culture - Preliminary
Blood/Venous Positive culture in progress
Gram Stain - Preliminary
10/13/24 18:35 Urine Culture - Pending
Urine
10/13/24 17:09 Influenza Types A & B (DAHLIA) - Final
Nasal Swab Negative for Influenza A & B, NAAT
Negative results must be combined with clinical observations
and patient history.
Nucleic Acid Amplification test (NAAT)performed on the
Cerecor platform.
10/13/24 CXR: No acute cardiopulmonary process.
10/07/24 DONNELL: Adjacent or possibly arising from the ring near the posterior leaflet, there is a mobile echogenic mass (0.74cm x 1.23cm). No signficant regurgitation. Mitral valve gradient pk/mean 12/5mmHg.
Compared to the Intraop DONNELL report from 08/10/24, the finding associated with the mitral valve reported is in similar location. Measurements differ a bit (0.7x0.6cm on the prior)
Care Review
Plan reviewed with: Physician (Dr. Dillon)
--- NOTE | 2024-10-15 09:14 | W.PN.HOSP.TC ---
Today's Communication/Plan
-
IV ancef
cardiology c/s
supportive measures
Assessment / Plan
Assessment / Plan
A/P: Patient is a 64y F with PMH significant for MSSA bacteremia, SBE and bilateral CVAs - presumed embolic - who presents to ED for evaluation of fevers / chills, hypotension and diarrhea / loose stools.
Septic Shock 2/2 Staph Aureus bacteremia/Endocarditis
tachycardia, tachypnea, leukocytosis - has some loose stool, but this is not a new / acute issue.
- Concern for recurrent bacteremia. IV vanco course completed at end of August. DONNELL done post MVR 10/07/24 persistent echodensity (per notes thought to be thrombus?) on mitral valve.
- Continue IV cefazolin. Staph Aureus Positive blood cultures. Repeat cx also positive.
- Follow fever curve.
- Monitor for any new / focal complaints.
resume IVFs
Levophed weaned off.
- ID consulted
-cardiology CBC consulted.
JAMES -resolved
Hyponatremia / SIADH
Hypokalemia
- sepsis/hypovolemia/prerenal
- IVF support as noted above. Received sepsis bolus in the ED. Improving.
- Hold diuretic therapy.
- Potassium replacement. Check Mg.
- Nephrology consulted appreciate recs
- Bladder scan given prior issues with urinary retention.
Diarrhea
- Patient has had essentially chronic diarrhea since last admission.
- Was controlled with anti-diarrheal medications.
- CDiff antigen positive / toxin negative during prior testing - on prophylactic / once daily PO Vanco.
pt reports this is improving
CVA - Likely Embolic
- Persistent R weakness, vision change and speech impairment - no new focal deficits.
- Continue PT / OT / Speech.
Paroxysmal Atrial Fibrillation
- Stable. Continue amiodarone once daily for now.
- Monitor on telemetry.
- resume eliquis
Breast Cancer
- s/p bilateral mastectomies. Chemotherapy remains on hold following prior hospitalization.
Hypothyroidism
- Continue T4 supplementation.
DVT Prophylaxis: eliquis
Code Status: Full
Anticipated Discharge: > 48 hours
Subjective/Interval History
-
Date of Service: October 15, 2024
Denies any acute issues
Having more formed stool
Objective Data
-
Labs:
Laboratory Results
10/15/24
03:58
WBC 12.6 H
Hgb 9.1 L
Hct 27.0 L
Plt Count 61 L D
Sodium 133 L
Potassium 3.2 L
Chloride 107
Carbon Dioxide 22
BUN 25 H
Creatinine 1.0
Glucose 111 H
Calcium 8.5
Total Bilirubin 0.6
AST 30
ALT 18
Alkaline Phosphatase 66
Vital Signs:
Vital Signs
Temp Pulse Resp BP Pulse Ox
99.6 F 98 20 97/70 95
10/15/24 03:06 10/15/24 08:36 10/15/24 05:30 10/15/24 08:36 10/15/24 00:30
I&O
10/14/24 10/15/24 10/16/24
06:59 06:59 06:59
Intake Total 1712.0 / 1712.0 3421 / 3421
Balance 1712.0 / 1712.0 3421 / 3421
Review of Systems
-
All other systems: Reviewed and negative
Physical Exam
-
General: No Apparent Distress and Sweats
HEENT: Moist Mucous Membranes, Anicteric and PERRLA
Respiratory: Clear to Auscultation; Negative Wheezes, Rales or Rhonchi
Cardiac: Regular Rhythm and S1/S2; Negative Murmur, Rub or Gallop
GI: Soft, Nontender, Nondistended and Normal Bowel Sounds
Musculoskeletal: No Edema
Skin: Warm and Dry; Negative Rash, Ulcers or Lesions
Neuro: Awake and AO x 3
Hematologic / Lymphatic: No Lymphadenopathy
Psych: Calm
Data Reviewed
-
Labs: Labs Reviewed by me and Discussed with Patient
[2024-10-15] MEDS: NSS 1000 IV ×2 (11:02→19:59)
--- NOTE | 2024-10-15 11:04 | PTCARENOTE ---
0700 Assumed care . Patient in bed. AAO x3
Normal Sinus Rhythm on telemetry, trace edema to b/l LE. pedal pulses weak on palpation;, Denies chest discomfort
Lungs diminished. SpO2: 96%RA. No cough denies SOB
Abdomen soft round non-tender non-distended. Continent of bowel. One loose stool this am. Isolation D/C Vancomycin PO D/C . Tolerating diet
Voiding on a toilet. Denies discomfort
Skin intact. Transfer with supervision. Require to use walker. OOB in a chair 4 hours. Using Call lopez appropriately
At this time patient in bed, HOB elevated. Call lopez within reach
--- NOTE | 2024-10-15 11:13 | W.PN.NEPH.PH ---
Today's Communication / Plan
-
Decrease lactated Ringer rate to 100 cc/h
Assessment/Plan
-
64y F with PMH significant for breast cancer and recent long and complicated hospital stay who presents to ED complaining of fevers / chills and noted to be hypotensive at physician's office today. Patient was admitted to 08/02 - 08/22
secondary to sepsis - presumably related to chest wall chemo port. Patient was found to have MSSA bacteremia and was treated with IV Vancomycin through September 21. Bacteremia was persistent despite catheter removal and IV abx. Patient suffered
embolic strokes during her hospital stay with vision and speech changes. She was taken to the OR on 08/10 and underwent mitral valve repair / annuloplasty, MAZE procedure and left atrial appendage clip. Blood cultures after 08/10 were negative.
She continued on treatment with IV Vancomycin (and PO vancomycin for prophylaxis).
Patient seen in renal consultation acute kidney injury. She was previously seen by us for hyponatremia
Impression.
Acute kidney injury admitting creatinine 2.4 with baseline 0.9= hemodynamic mediated hypovolemia sepsis
Bacteremia recurrent= staph
Breast CA
Plan.
Continue lactated Ringer's
Renal dose all medications for current GFR until reaches steady state
Monitor urine output
Pressor support
Creatinine close to baseline normalization
Decrease IV fluids to 100 cc
Discussed with ICU team

33 minutes CC time
-
-
Date of Service: October 15, 2024
CC / HPI / ROS
-
Chief Complaint:
Sepsis
History of Present Illness:
JAMES secondary to sepsis and hypotension
Review of Systems:
No chest pain or shortness of breath
Nonoliguric
Labs
-
Labs:
WBC 12.6 10^3/uL (4.8-10.8) H 10/15/24 03:58
RBC 2.91 10^6/uL (4.20-5.40) L 10/15/24 03:58
Hgb 9.1 g/dL (12.0-16.0) L 10/15/24 03:58
Hct 27.0 % (37.0-47.0) L 10/15/24 03:58
Plt Count 61 10^3/uL (130-400) L D 10/15/24 03:58
Sodium 133 mmol/L (135-145) L 10/15/24 03:58
Potassium 3.2 mmol/L (3.5-5.1) L 10/15/24 03:58
Chloride 107 mmol/L (98-107) 10/15/24 03:58
Carbon Dioxide 22 mmol/L (22-30) 10/15/24 03:58
BUN 25 mg/dl (7-17) H 10/15/24 03:58
Creatinine 1.0 mg/dL (0.6-1.0) 10/15/24 03:58
eGFR > 60.00 10/15/24 03:58
Glucose 111 mg/dl (70-99) H 10/15/24 03:58
Calcium 8.5 mg/dl (8.4-10.2) 10/15/24 03:58
Albumin 2.4 g/dl (3.5-5.0) L 10/15/24 03:58
Physical Exam
-
Vital Signs:
Vital Signs
Temp Pulse Resp BP Pulse Ox
97.8 F 94 26 91/64 95
10/15/24 07:00 10/15/24 11:00 10/15/24 11:00 10/15/24 11:00 10/15/24 00:30
Respiratory:: Bilateral: CTA
Lung Excursion:: Normal
Abdomen:: Soft
Bowel Sounds:: Normal
Extremity Edema:: None: Bilateral:
--- NOTE | 2024-10-15 11:14 | CON.CAR ---
Consultation
Consultation Request
Date/Time Consultation Requested: 10/15/2024 at 9:12 AM
Date/Time Consultation Performed: 10/15/2024 at 11 AM
Requesting Provider: Jennifer Dillon MD
Performing Provider: Richmond Esteban MD
Reason for Consultation: concern for MV endocarditis
Medical History
-
Chief Complaint: hypotension
History of Present Illness:
64 y/o female with PSVT, HTN and BRCA on chemotherapy admitted in July 2024 with complicated MSSA sepsis/bacteremia related to port tip and [place] mitral valve endocarditis s/p radical mitral valve repair (Brian, 08/10/24) subsequently complicated by
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 Following mitral valve repair, blood cultures were cleared. She was continued on IV vancomycin. Postoperative TTE on 08/15/2024 showed a mobile echodensity on the mitral
valve which was felt to be possible thrombus. She was continued on apixaban and plan was for repeat TTE in 4 weeks. She was discharged to [place] for acute rehab where she remained until she was discharged on 09/13. IV antibiotics were completed on
09/21/2024. Repeat TTE on 09/27/2024 showed persistent mobile echodensity. DONNELL was performed on 10/07/2024 which showed mobile echogenic mass on the mitral ring near the posterior leaflet. Plan was for serial monitoring. She has been acting 'off'
recently and her encouraged her to go see her PCP. She saw PCP yesterday and was found to be hypotensive. Sent to the ER where blood cultures were positive for Staph aureus.
Past Medical History
Past Medical History: Other (As above)
Past Surgical History: Other (As above)
Social History
Living: With Family
Family History
Family History: Reviewed & Not Pertinent
Allergies / Home Medications
Allergy/AdvReac Type Severity Reaction Status Date / Time
apricot (Apricot) Allergy Hives Verified 09/01/15 14:39
blueberry Allergy Hives Verified 08/03/24 21:44
cefprozil (From Cefzil) Allergy Hives - Verified 10/14/24 17:01
added
11/03/2011
Cephalosporins Allergy Unknown - Verified 10/14/24 17:01
added in
2011
ciprofloxacin (From Cipro) Allergy Unknown - Verified 10/14/24 09:56
added
06/22/2006
dextromethorphan (From Allergy Unknown Verified 05/24/24 10:58
[place] DMT)
Penicillins Allergy Hives - Verified 10/14/24 17:01
from prior
to or on
06/22/2006
pyrilamine (From [place] DMT) Allergy Unknown Verified 05/24/24 10:58
scallops Allergy Unknown Verified 05/24/24 11:02
Sulfa (Sulfonamide Allergy Hives - Verified 10/14/24 09:56
Antibiotics) added
(Sulfa(Sulfonamide 06/22/2006
Antibiotics))
sulfamethoxazole (From Allergy Hives - Verified 10/14/24 09:56
Bactrim) added
06/22/2006
trimethoprim (From Bactrim) Allergy Hives - Verified 10/14/24 09:56
added
06/22/2006
venom-honey bee Allergy Hives Verified 08/03/24 21:44
�Medication �Instructions �Recorded �Confirmed �Type
lorazepam 0.5 mg tablet 0.5 mg PO DAILYPRN PRN anxiety 11/03/11 10/07/24 History
levothyroxine 50 mcg tablet 50 mcg PO DAILY Thyroid 05/24/24 08/22/24 History
amiodarone 200 mg tablet (Pacerone) 200 mg PO DAILY Arrhythmia 30 days 09/13/24 10/07/24 Rx
#30 tabs
apixaban 5 mg tablet (Eliquis) 5 mg PO BID Arrhythmia 30 days #60 09/13/24 10/07/24 Rx
tabs
lidocaine 4 % topical patch 1 patch topical DAILY pain-low 09/13/24 10/07/24 Rx
back pain 30 days #30 ea
metoprolol succinate 25 mg 25 mg PO DAILY Heart 09/13/24 10/07/24 Rx
tablet,extended release 24 hr disease/condition 30 days #30 tabs
potassium citrate 10 mEq (1,080 20 meq (2 x 10 mEq (1,080 mg)) PO 09/13/24 10/07/24 Rx
mg) tablet,extended release DAILY supplement 30 days #60 tabs
furosemide 40 mg tablet 40 mg PO DAILY Fluid 10/07/24 10/07/24 History
retention/Swelling
Review of Systems
-
All other systems: Negative unless noted
Physical Exam
Vital Signs
Temp Pulse Resp BP Pulse Ox
97.8 F 94 26 91/64 95
10/15/24 07:00 10/15/24 11:00 10/15/24 11:00 10/15/24 11:00 10/15/24 00:30
Lab Results
10/15/24 03:58
10/15/24 03:58
Physical Exam
General: Well Developed and Well Nourished
Respiratory: Clear and Non Labored Respirations
Cardiac: S1/S2, Regular Rhythm and Murmur; Negative Peripheral Edema
Neuro: AO x 3
Impression / Plan
-
64 y/o female with PSVT, HTN and BRCA on chemotherapy admitted in July 2024 with complicated MSSA sepsis/bacteremia related to port tip and [place] mitral valve endocarditis s/p radical mitral valve repair (Brian, 08/10/24) subsequently complicated by
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 Presents with staph aureus bacteremia and concern for MV vegetation.
Office Mover: Espinoza
Septic shock due to Staph aureus bacteremia
Concern for recurrent mitral valve endocarditis
-Diagnosis is a threat to life. Vasopressors now weaned off
- Initially admitted with MSSA endocarditis in July. Status-post radical mitral valve repair [debridement of annulus, patch repair, annuloplasty with 30 mm band], open left sided maze procedure [cryoablation], LAAE [35 mm clip], Dr. Brian 08/10/24
- Blood cultures initially after surgery were clear. Completed IV abx 09/21/24. Post op TTEs in July and September with MV echodensity
- DONNELL 10/07/2024: LVEF 55-60%, mobile echogenic mass adjacent to or possibly arising from MV ring near posterior leaflet, no significant MR, peak/mean gradient 12/5 mmHg
- Blood cultures from 10/13 growing Staph aureus
- ID consulted. Continue IV antibiotics
- CT surgery eval
Paroxysmal atrial fibrillation
-Diagnosed postoperatively in July. Currently in sinus rhythm.
-Continue amiodarone
-Hold apixaban in case she needs CT surgery
-Bridge with heparin given recent stroke. IV heparin requires intensive monitoring of labs.
JAMES, resolved
Data Reviewed
-
EKG: Tracing Personally Visualized and interpreted and Report Reviewed by me
Medical Tests (Nuc Med, Echo etc): Image Personally Visualized and interpreted, Report Reviewed by me, Discussed with Physician and Discussed with Patient
Labs: Labs Reviewed by me, Discussed with Physician and Discussed with Patient
Old Records: Reviewed
[2024-10-15 12:16] LABS: APTT 37.9 Sec (23.4-35.0)
[2024-10-15 12:18] LABS: Hematocrit 24.2 % (37.0-47.0); Hemoglobin 8.3 g/dL (12.0-16.0); Mean Corp Hgb Conc. 34.3 g/dL (33.0-37.0); Mean Corpuscular Volume 92.0 fL (81.0-99.0); Platelet Count 57 10^3/uL (130-400); Red Cell Dist. Width 15.4 % (11.5-14.5)
--- NOTE | 2024-10-15 12:57 | CONSULT.CT ---
Consultation
-
Date/Time Consultation Performed: 10/15/241256
Requesting Provider: Richmond Esteban MD
Performing Provider: Eh Jennings PA-C
Reason for Consultation: S/P MV repair for endocarditis, now with mobile mass on MV & +blood culture
Patient History
Physicians
Outpatient Senior Accounting Associate: Dr. Doran
Inpatient Senior Accounting Associate: Dr. Esteban
History of Present Illness
The patient is a 64-year-old female who is well-known to our service. She underwent radical mitral valve repair with a 30 mm band, debridement of annulus and patch reconstruction as well as cryo maze and left atrial ligation by Dr. Brian on
08/10/2024. The surgery was undertaken in the setting of mitral valve endocarditis with MSSA bacteremia. Her postoperative course was protracted and she ultimately ended up requiring [place] rehabilitation. On follow-up echocardiograms there had been
note of a mass on her mitral valve however the valve itself had remained competent. She had cleared her blood cultures prior to discharge and thus it was felt that this could be observed. There was some consideration as to whether this was
thrombus or may be a redundant part of the patch reconstruction of the mitral valve annulus as opposed to recurrent endocarditis. She is maintained on Eliquis in the outpatient setting.
Patient underwent DONNELL on 10/07/2024 where this mass was again noted. On this study the mass was noted at 0.74 cm x 1.23 cm. It had previously measured at 0.7 x 0.6 cm on intraoperative DONNELL post mitral valve repair. Subsequently the patient began
to feel fatigued and ill. Her noted that she had altered mental status and she was ultimately referred to the emergency department. Blood cultures on admission are again positive for Staph aureus. Susceptibilities are pending. She was
also noted to be hypotensive. Sepsis alert was activated and she was admitted to the ICU for further management. Following cardiology evaluation it was felt that we should also be consulted given the possibility of recurrent mitral valve
endocarditis.
Currently the patient is resting comfortably and is feeling better since admission. She is awake alert and oriented.
Past Medical History
atrial fibrillation
HLD
HTN
Right breast cancer (2023) s/p lumpectomy with adjuvant chemotherapy
chemo induced diarrhea
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
Acute postop apthous mouth ulcers on 08/17/24- started Magic wash
Hx SVT/atrial tachycardia
Past Surgical History
Radical mitral valve repair with 30 mm band, debridement of annulus with patch reconstruction, cryo maze, left atrial Penders exclusion with atrial clip on 08/10/[address] Brian
Family History
Family Medical History: Other (Noncontributory)
Social History
Alcohol: None
Drug: None
Tobacco: Former Smoker
Allergies
Allergy/AdvReac Type Severity Reaction Status Date / Time
apricot (Apricot) Allergy Hives Verified 09/01/15 14:39
blueberry Allergy Hives Verified 08/03/24 21:44
cefprozil (From Cefzil) Allergy Hives - Verified 10/14/24 17:01
added
11/03/2011
Cephalosporins Allergy Unknown - Verified 10/14/24 17:01
added in
2011
ciprofloxacin (From Cipro) Allergy Unknown - Verified 10/14/24 09:56
added
06/22/2006
dextromethorphan (From Allergy Unknown Verified 05/24/24 10:58
[place] DMT)
Penicillins Allergy Hives - Verified 10/14/24 17:01
from prior
to or on
06/22/2006
pyrilamine (From [place]ano DMT) Allergy Unknown Verified 05/24/24 10:58
scallops Allergy Unknown Verified 05/24/24 11:02
Sulfa (Sulfonamide Allergy Hives - Verified 10/14/24 09:56
Antibiotics) added
(Sulfa(Sulfonamide 06/22/2006
Antibiotics))
sulfamethoxazole (From Allergy Hives - Verified 10/14/24 09:56
Bactrim) added
06/22/2006
trimethoprim (From Bactrim) Allergy Hives - Verified 10/14/24 09:56
added
06/22/2006
venom-honey bee Allergy Hives Verified 08/03/24 21:44
Home Medications
�Medication �Instructions �Recorded �Confirmed �Type
lorazepam 0.5 mg tablet 0.5 mg PO DAILYPRN PRN anxiety 11/03/11 10/07/24 History
levothyroxine 50 mcg tablet 50 mcg PO DAILY Thyroid 05/24/24 08/22/24 History
amiodarone 200 mg tablet (Pacerone) 200 mg PO DAILY Arrhythmia 30 days 09/13/24 10/07/24 Rx
#30 tabs
apixaban 5 mg tablet (Eliquis) 5 mg PO BID Arrhythmia 30 days #60 09/13/24 10/07/24 Rx
tabs
lidocaine 4 % topical patch 1 patch topical DAILY pain-low 09/13/24 10/07/24 Rx
back pain 30 days #30 ea
metoprolol succinate 25 mg 25 mg PO DAILY Heart 09/13/24 10/07/24 Rx
tablet,extended release 24 hr disease/condition 30 days #30 tabs
potassium citrate 10 mEq (1,080 20 meq (2 x 10 mEq (1,080 mg)) PO 09/13/24 10/07/24 Rx
mg) tablet,extended release DAILY supplement 30 days #60 tabs
furosemide 40 mg tablet 40 mg PO DAILY Fluid 10/07/24 10/07/24 History
retention/Swelling
Review of Systems
-
History Source: Patient
General: Reports Fever, Fatigue and Chills
HEENT: Reports No Symptoms
Respiratory: Reports SOB
Cardiac: Reports No Symptoms
Abdomen/GI: Reports No Symptoms
: Reports No Symptoms
Musculoskeletal: Reports No Symptoms
Skin: Reports No Symptoms
Neurological: Reports No Symptoms
Vascular: Reports No Symptoms
Physical Exam
Vital Signs
Temp 97.8 F 10/15/24 07:00
Temp route: Oral 10/15/24 07:00
Pulse 94 10/15/24 11:00
Rhythm: Normal sinus rhythm 10/15/24 08:00
With- PVC's Monomorphic 10/14/24 19:50
Resp Rate 26 10/15/24 11:00
Blood pressure 91/64 10/15/24 11:00
Blood pressure extremity used: Left upper arm 10/13/24 15:54
Position: Sitting 10/13/24 15:54
MAP (cuff-Maggie Monitor) 73 10/15/24 11:00
SaO2 95 10/15/24 00:30
Nasal Cannula flow liters per minute 2 10/14/24 14:52
Oxygen Mode of Delivery Room air 10/15/24 08:00
Pulse Ox at Rest 98 10/14/24 14:52
Can the patient verbally communicate their pain? Yes 10/15/24 08:00
Actual Weight 74 kg 10/15/24 06:00
Body Mass Index (BMI) 29.9 10/15/24 06:00
Supine- Blood Pressure 99/71 10/14/24 14:52
Supine- Pulse 79 10/14/24 14:52
Heart rate after activity 93 10/14/24 14:52
Blood pressure after activity 106/70 10/14/24 14:52
Oxygen Saturation with Activity 99 10/14/24 14:52
Labs
10/15/24 11:55
10/15/24 03:58
APTT 37.9 Sec (23.4-35.0) H 10/15/24 11:55
Urinalysis
Urine Color Yellow 10/13/24 18:35
Urine Clarity Slightly cloudy (Clear) 10/13/24 18:35
Urine pH 5.0 (5.0-9.0) 10/13/24 18:35
Ur Specific [place] 1.020 (<1.030) 10/13/24 18:35
Urine Ketones Negative (Negative) 10/13/24 18:35
Ur Occult Blood Reflex 4+ (Negative) A 10/13/24 18:35
Urine Bilirubin Negative (Negative) 10/13/24 18:35
Leukocyte Esterase Rfl 1+ (Negative) A 10/13/24 18:35
Urine RBC 26-30 /HPF (0-2) A 10/13/24 18:35
Urine WBC (Reflex) 11-15 /HPF (0-5) A 10/13/24 18:35
Ur Squamous Epith Cells 0-2 /LPF (Few) 10/13/24 18:35
Urine Bacteria (Reflex) Many (Negative) A 10/13/24 18:35
Urine Glucose Negative (Negative) 10/13/24 18:35
Urine Albumin (Reflex) 3+ (Neg - Trace) A 10/13/24 18:35
Exam
General: Well Developed, Well Nourished and No Apparent Distress
HEENT: Normocephalic and Anicteric
Neck: Trachea Midline
Respiratory: Clear
Cardiac: S1/S2 and Regular Rhythm
GI: Soft, Non Tender and Non Distended
Rectal: Deferred by Provider
Skin: Warm and Dry
Neuro: Awake, Alert and Oriented
Psych: Calm
Assessment / Plan
-
Mitral valve mass status post radical mitral valve repair with patch reconstruction of mitral valve annulus
There was note of a mitral valve mass postoperatively on transthoracic echocardiogram following her original surgery in July. It was felt at that time that this was route sales representative of thrombus versus redundancy from the patch reconstruction of her
annulus. She cleared her blood cultures at that time and was maintained on antibiotics per ID recommendations. She was also discharged on Eliquis. Unfortunately this mass persists and unfortunately on most recent the has appears to have gotten
slightly bigger. Her blood cultures are now positive again for Staph aureus. Recommend continued antibiotics per infectious disease recommendations. Hopefully she will be able to clear her blood cultures again as the mitral valve repair appears
to be intact with no mitral insufficiency or significant gradients. I did discuss that should her blood cultures not clear that we may need to consider reoperation and debridement of the annulus. Hopefully that will not be necessary.
I did discuss this case with my attending Dr. Clint Brian who is in agreement with the plan and will evaluate the patient independently tomorrow. Recommend continued medical management per primary team in the interim.
Data Reviewed
-
EKG: Report Reviewed by me
Echo: Report Reviewed by me
Labs: Labs Reviewed by me
Old Records: Reviewed
Total Time Spent with Patient (in minutes): 60
--- NOTE | 2024-10-15 14:18 | PTCARENOTE ---
Ambulates in a room with walker. Eliquis on Hold. per Order Heparin qtt will be started at 8pm. Patient aware
--- NOTE | 2024-10-15 17:50 | PTCARENOTE ---
Patient in bed. Normal Sinus Rhythm on telemetry 95; BP via left upper arm 101/69 MAP 78; RR 24; POX 98% RA.
AAO x 3; speech clear. Able to move upper and lower extremities. Denies chest discomfort. Denies SOB. Tolerating diet with no difficulties. Call lopez within reach. 0.9NSs infusing at 100/hr via RT hand. Left hand peripheral line capped.
[2024-10-15] MEDS: HEPARIN 25000 UNITS/250 ML IV (19:59)
--- NOTE | 2024-10-15 20:00 | PTCARENOTE ---
Assumed care of pt from dayshift. Pt aaox3, denies pain. ST/SR 90s-100s on tele monitor. Bp 90s-100s/60s. Afebrile. Heparin gtt initiated at 20:00 going at 1100 units/hr.
[2024-10-16] VITALS (19 sets, daily range): BP systolic 84–122; BP diastolic 67–101; BMI 31.1
--- NOTE | 2024-10-16 00:48 | PTCARENOTE ---
Pt pulse ox 91% while asleep, placed on 1.5L, pt taking o2 on and off throughout night. at 0530 Pt rang call lopez c/o rigors, and feeling freezing. Pt tachypneic, exertional wheezing, 90% on RA. HR 110s. placed on 2L NC. now 93-94%. Rectal temp
100.6. Tylenol given
[2024-10-16 02:37] LABS: Hematocrit 26.1 % (37.0-47.0); Hemoglobin 8.7 g/dL (12.0-16.0); Mean Corp Hgb Conc. 33.3 g/dL (33.0-37.0); Mean Corpuscular Volume 93.2 fL (81.0-99.0); Nucleated Red Blood Cells % 0 %; Platelet Count 69 10^3/uL (130-400); Red Cell Dist. Width 15.7 % (11.5-14.5)
[2024-10-16 02:39] LABS: APTT 54.9 Sec (23.4-35.0)
[2024-10-16 02:53] LABS: Blood Urea Nitrogen 19 mg/dl (7-17); Calcium 8.5 mg/dl (8.4-10.2); Carbon Dioxide 22 mmol/L (22-30); Chloride 110 mmol/L (98-107); Estimated Creatinine Clearance 66 ml/min; Glucose 124 mg/dl (70-99); Potassium 3.8 mmol/L (3.5-5.1); Sodium 135 mmol/L (135-145); eGFR > 60.00
[2024-10-16] MEDS: SYNTHROID 50 MCG PO (05:29)
[2024-10-16] MEDS: TYLENOL 650 MG PO ×2 (05:29→19:56)
[2024-10-16] MEDS: KLOR-CON 20 MEQ PO ×2 (07:55→21:16)
[2024-10-16] MEDS: PACERONE 200 MG PO (07:55)
[2024-10-16] MEDS: ANCEF 10 IV ×2 (08:10→16:55)
--- NOTE | 2024-10-16 08:20 | PTCARENOTE ---
0700 Assumed care. Patient in bed. VS: BP via left upper arm with regular cuff: 91/67 MAP 75; Sinus Tachycardia: 119-136 (prior to admiodarone am dose); RR 26-31; POX 91RA.
Heparin at ; Next PTT at 08:30 infusing via left FA # 22 peripheral line. RT hand # 22 peripheral line : KVO and anceff. both lines flushed check, no redness no leak no pain
--- NOTE | 2024-10-16 09:01 | W.PN.HOSP.TC ---
Today's Communication/Plan
-
IV ancef
Repeat BCx positive
Surgery at this point would be too high risk so medical management only with long-term suppressive antibiotics
supportive measures
Assessment / Plan
Assessment / Plan
A/P: Patient is a 64y F with PMH significant for MSSA bacteremia, SBE and bilateral CVAs - presumed embolic - who presents to ED for evaluation of fevers / chills, hypotension and diarrhea / loose stools.
Septic Shock 2/2 MSSA bacteremia/Endocarditis
tachycardia, tachypnea, leukocytosis - has some loose stool, but this is not a new / acute issue.
- Concern for recurrent bacteremia. IV vanco course completed at end of August. DONNELL done post MVR 10/07/24 persistent echodensity (per notes thought to be thrombus?) on mitral valve.
- Continue IV cefazolin. MSSA Staph Aureus Positive blood cultures. Repeat cx 10/14 also positive. Repeating BCx again 10/16, until they clear.
- Follow fever curve. Tmax 100.6 F today. Still with leukocytosis WBC 14.4
- Monitor for any new / focal complaints.
S/p IVFs
Levophed weaned off. BP on low side but stable.
- ID consulted
-cardiology CBC consulted, CT surgery also consulted;per notes repeat surgery would be very high risk at this time so long-term suppressive antibiotics are the current plan.
Anemia
Normocytic
in setting of sepsis
Hgb 8.7 which is decreased from her baseline last admission
Monitor H&H and transfuse if Hgb less than 7
JAMES -resolved
Hyponatremia / SIADH -resolved
Hypokalemia - resolved
- sepsis/hypovolemia/prerenal
- IVF support as noted above. Received sepsis bolus in the ED. Improving.
- Hold diuretic therapy.
- Potassium replacement. Check Mg.
- Nephrology consulted appreciate recs
- Bladder scan given prior issues with urinary retention.
Diarrhea
- Patient has had essentially chronic diarrhea since last admission.
- Was controlled with anti-diarrheal medications.
- CDiff antigen positive / toxin negative during prior testing - on prophylactic / once daily PO Vanco.
pt reports this is improving
CVA - Likely Embolic
- Persistent R weakness, vision change and speech impairment - no new focal deficits.
- Continue PT / OT / Speech.
Paroxysmal Atrial Fibrillation
- Stable. Continue amiodarone once daily for now.
- Monitor on telemetry.
- eliquis on hold in favor of heparin drip in case patient needs CT surgery, but given no plan for surgery (see above) will likely transition back to Eliquis
Breast Cancer
- s/p bilateral mastectomies. Chemotherapy remains on hold following prior hospitalization.
Hypothyroidism
- Continue T4 supplementation.
DVT Prophylaxis: eliquis
Code Status: Full
Anticipated Discharge: > 48 hours
Subjective/Interval History
-
Date of Service: October 16, 2024
Feeling well denies issues overnight, denies CP/F/C/SOB/N/V
Objective Data
-
Labs:
Laboratory Results
10/16/24 10/16/24
02:17 08:40
WBC 14.4 H
Hgb 8.7 L
Hct 26.1 L
Plt Count 69 L D
APTT 54.9 H Pending
Sodium 135
Potassium 3.8
Chloride 110 H
Carbon Dioxide 22
BUN 19 H
Creatinine 0.8
Glucose 124 H
Calcium 8.5
Vital Signs:
Vital Signs
Temp Pulse Resp BP Pulse Ox
98.8 F 109 23 102/71 93
10/16/24 08:08 10/16/24 07:55 10/16/24 06:30 10/16/24 07:55 10/16/24 06:30
I&O
10/15/24 10/16/24 10/17/24
06:59 06:59 06:59
Intake Total 3420 / 3420
Balance 3420
Review of Systems
-
All other systems: Reviewed and negative
Physical Exam
-
General: No Apparent Distress and Sweats
HEENT: Moist Mucous Membranes, Anicteric and PERRLA
Respiratory: Clear to Auscultation; Negative Wheezes, Rales or Rhonchi
Cardiac: Regular Rhythm and S1/S2; Negative Murmur, Rub or Gallop
GI: Soft, Nontender, Nondistended and Normal Bowel Sounds
Musculoskeletal: No Edema
Skin: Warm and Dry; Negative Rash, Ulcers or Lesions
Neuro: Awake and AO x 3
Hematologic / Lymphatic: No Lymphadenopathy
Psych: Calm
Data Reviewed
-
Labs: Labs Reviewed by me and Discussed with Patient
[2024-10-16 09:21] LABS: APTT 68.3 Sec (23.4-35.0)
--- NOTE | 2024-10-16 09:54 | W.PN.ID1 ---
Date of Service
Date of Service: October 16, 2024
Today's Communication
Continue cefazolin.
See below.
Assessment / Plan
# Relapse complicated MSSA bacteremia/IE
# Mitral valve annuloplasty repair infective endocarditis
# s/p Septic shock, on pressor
# fever - resolving
# leukocytosis, trending up
# JAMES - resolving
# Allergy to PCN, cephalosporin, cipro, sulfa; tolerating cephalosporin this admission
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
. 08/10/24 s/p open radical mitral valve repair debridement of annulus, patch repair, annuloplasty with 30 mm band
. Completed IV Vancomycin through 09/21/24 (6 weeks from MV repair)
Plan:
- Of note 10/07 outpt DONNELL: mobile echogenic mass (0.74cm x 1.23cm) arising from adjacent or from annuloplasty ring MV
- Blood cx x 4 MSSA
- repeat blood cx's daily until persistently clear
- Appreciate cardiology and CTS.
Too high risk for redo-MV repair,, per CTS.
- Continue cefazolin 2g IV q8h
- Trend temps/wbc.
# Diarrhea
- Check stool for C. diff.
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
Cardio-embolic CVA with left vision loss
Right breast cancer status post lumpectomy, was on adjuvant chemo, last received 08/01/24
Hypertension
Hypothyroidism
Atrial fib
Anxiety
Left Parotid gland tumor excision 2024
Port placement -> dc'd 08/17
Cholecystectomy
Hysterectomy
Finger tumor radical resection 1985
Sacrocolpopexy
Chief Complaint
-: Bacteremia
Subjective / Review of Systems
Diarrhea recurred.
Vital Signs / Physical Exam
Vital Signs
Vital Signs
Temp Pulse Resp BP Pulse Ox
98.8 F 109 23 102/71 93
10/16/24 08:08 10/16/24 07:55 10/16/24 06:30 10/16/24 07:55 10/16/24 06:30
Physical Exam
Constitutional: No Acute Distress and Comfortable
Cardiovascular: S1/S2 (tachy)
Pulmonary: Clear
Gastrointestinal: Soft, Non Tender, Non Distended and Normal Bowel Sounds
Extremities: Negative Edema
Neurological: AO x 3
Objective Data
Lab Data
Lab Results
10/16/24 02:17
10/16/24 02:17
APTT 68.3 Sec (23.4-35.0) H 10/16/24 08:40
Estimated Creat Clear 66 ml/min 10/16/24 02:17
Lactic Acid Cancelled 10/14/24 09:48
Total Bilirubin 0.6 mg/dl (0.2-1.3) 10/15/24 03:58
AST 30 U/L (14-36) 10/15/24 03:58
ALT 18 U/L (0-35) 10/15/24 03:58
Alkaline Phosphatase 66 U/L (38-126) 10/15/24 03:58
Most recent labs reviewed.
Micro Results:
10/14/24 10:11 Blood Culture - Preliminary
Blood/Venous S aureus-Methicillin Sensitive
Gram Stain - Final
10/14/24 10:11 Blood Culture - Preliminary
Blood/Venous S aureus-Methicillin Sensitive
Gram Stain - Preliminary
10/13/24 17:09 Blood Culture - Final
Blood/Venous S aureus-Methicillin Sensitive
Gram Stain - Final
10/13/24 16:07 Blood Culture - Final
Blood/Venous S aureus-Methicillin Sensitive
Gram Stain - Final
10/16/24 02:18 Blood Culture - Pending
Blood/Venous
10/13/24 18:35 Urine Culture - Final
Urine NO GROWTH
10/13/24 17:09 Influenza Types A & B (DAHLIA) - Final
Nasal Swab Negative for Influenza A & B, NAAT
Negative results must be combined with clinical observations
and patient history.
Nucleic Acid Amplification test (NAAT)performed on the
[employer] platform.
10/13/24 CXR: No acute cardiopulmonary process.
10/07/24 DONNELL: Adjacent or possibly arising from the ring near the posterior leaflet, there is a mobile echogenic mass (0.74cm x 1.23cm). No signficant regurgitation. Mitral valve gradient pk/mean 12/5mmHg.
Compared to the Intraop DONNELL report from 08/10/24, the finding associated with the mitral valve reported is in similar location. Measurements differ a bit (0.7x0.6cm on the prior)
Care Review
Plan reviewed with: Nurse (Janene)
[2024-10-16] MEDS: HEPARIN 25000 UNITS/250 ML IV (14:00)
--- NOTE | 2024-10-16 14:38 | PTCARENOTE ---
Patient has 5 people in a room. patient family was explained: ' Per hospital's visitor policy, it required for no more than 2 people to be in a room.' Patient's son responded that ' I don't care about your policies. 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 You can call security or what ever, we are staying here. I don't care about your policy. Last time my mom was here, we had around 6 people in a room. It's not your policy, it's all depends who is
working'
--- NOTE | 2024-10-16 14:43 | W.PN.CD ---
Today's Communication / Plan
-
Now in A-fib with RVR. Trial IV fluid bolus. If no improvement, IV amiodarone
Check CXR for shortness of breath
Abx per ID
Impression / Plan
-
64 y/o female with PSVT, HTN and BRCA on chemotherapy admitted in July 2024 with complicated MSSA sepsis/bacteremia related to port tip and bois forte mitral valve endocarditis s/p radical mitral valve repair (Snehal, 08/10/24) subsequently complicated by
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 Presents with staph aureus bacteremia and concern for MV vegetation.
Outpatient Admitting Clerk: Espinoza
Septic shock due to Staph aureus bacteremia
Concern for recurrent mitral valve endocarditis
- Diagnosis is a threat to life. Vasopressors weaned off
- Initially admitted with MSSA endocarditis in July. Status-post radical mitral valve repair [debridement of annulus, patch repair, annuloplasty with 30 mm band], open left sided maze procedure [cryoablation], LAAE [35 mm clip], Dr. Brian 08/10/24
- Blood cultures initially clear after surgery. Completed IV abx 09/21/24. Post op TTEs in July and September with MV echodensity
- DONNELL 10/07/2024: LVEF 55-60%, mobile echogenic mass adjacent to or possibly arising from MV ring near posterior leaflet, no significant MR, peak/mean gradient 12/5 mmHg
- Blood cultures from 10/13- growing Staph aureus
- Evaluated by CT surgery. Reoperation is too high risk. She will need suppressive antibiotics.
- ID consulted. Continue antibiotics
Shortness of breath
- May be due to new onset A-fib with RVR. She is tachycardic to 130s and anemic. Management as below.
- Check CXR
Paroxysmal atrial fibrillation
- In and out of atrial fibrillation on telemetry. Heart rates up to 130s.
- Trial IVF bolus. If HR remains >110-120 bpm, start IV amiodarone
- Resume apixaban given no plan for surgery
JAMES, resolved
Subjective: She is experiencing dyspnea at rest. In and out of atrial fibrillation on telemetry with heart rates up to 130s. No palpitations or chest pressure.
Physical Exam
Vital Signs/Labs
Vital Signs
Temp Pulse Resp BP Pulse Ox
98.0 F 131 30 102/81 92
10/16/24 12:12 10/16/24 12:03 10/16/24 12:03 10/16/24 12:03 10/16/24 12:03
10/15/24 10/16/24 10/17/24
06:59 06:59 06:59
Actual Weight 163 lb 2.273 oz 169 lb 12.095 oz
10/16/24 02:17
10/16/24 02:17
APTT 68.3 Sec (23.4-35.0) H 10/16/24 08:40
Magnesium 1.4 mg/dl (1.6-2.3) L 10/14/24 04:36
Physical Exam
Constitutional: Other (dyspneic with long sentences)
Cardiovascular: Pedal edema is absent, Rhythm/rate is irregular, S1S2 is normal and Murmur/rub/gallop absent
Respiratory: Other (Decreased breath sounds at right base)
Neuro/Psych: AO x 3
Data Reviewed
-
Date of Service: October 16, 2024
Medical Decision Making: Reviewed Test Results, Independent Historian Assessment, Test Interpretation and Review of Case with other Provider
EKG: Tracing Personally Visualized and interpreted (Telemetry: Intermittent atrial fibrillation with heart rates up to 130s)
Echo: Report Reviewed by me
X-Ray/CT/US/MRI/NUC/PET: Image Personally Visualized and interpreted (Lungs clear on initial CXR)
Labs: Labs Reviewed by me
[2024-10-16] MEDS: NSS 500 IV (14:46)
--- NOTE | 2024-10-16 15:08 | PTCARENOTE ---
Heparin drip D/C; 0.9NSS [address] to AFib 114 to 128 BP 114/87
--- NOTE | 2024-10-16 16:06 | W.PN.NEPH.PH ---
Today's Communication / Plan
-
Stop IV fluids
Assessment/Plan
-
64y F with PMH significant for breast cancer and recent long and complicated hospital stay who presents to ED complaining of fevers / chills and noted to be hypotensive at physician's office today. Patient was admitted to 08/02 - 08/22
secondary to sepsis - presumably related to chest wall chemo port. Patient was found to have MSSA bacteremia and was treated with IV Vancomycin through September 21. Bacteremia was persistent despite catheter removal and IV abx. Patient suffered
embolic strokes during her hospital stay with vision and speech changes. She was taken to the OR on 08/10 and underwent mitral valve repair / annuloplasty, MAZE procedure and left atrial appendage clip. Blood cultures after 08/10 were negative.
She continued on treatment with IV Vancomycin (and PO vancomycin for prophylaxis).
Patient seen in renal consultation acute kidney injury. She was previously seen by us for hyponatremia
Impression.
Acute kidney injury admitting creatinine 2.4 with baseline 0.9= hemodynamic mediated hypovolemia sepsis
Bacteremia recurrent= staph
Breast CA
Plan.
Continue lactated Ringer's
Renal dose all medications for current GFR until reaches steady state
Monitor urine output
Pressor support
Creatinine close to baseline normalization
Intravenous fluids stopped
Discussed with ICU team

33 minutes CC time
-
-
Date of Service: October 16, 2024
CC / HPI / ROS
-
Chief Complaint:
Sepsis
History of Present Illness:
JAMES secondary to sepsis and hypotension
Review of Systems:
No chest pain or shortness of breath
Nonoliguric
Labs
-
Labs:
WBC 14.4 10^3/uL (4.8-10.8) H 10/16/24 02:17
RBC 2.80 10^6/uL (4.20-5.40) L 10/16/24 02:17
Hgb 8.7 g/dL (12.0-16.0) L 10/16/24 02:17
Hct 26.1 % (37.0-47.0) L 10/16/24 02:17
Plt Count 69 10^3/uL (130-400) L D 10/16/24 02:17
Sodium 135 mmol/L (135-145) 10/16/24 02:17
Potassium 3.8 mmol/L (3.5-5.1) 10/16/24 02:17
Chloride 110 mmol/L (98-107) H 10/16/24 02:17
Carbon Dioxide 22 mmol/L (22-30) 10/16/24 02:17
BUN 19 mg/dl (7-17) H 10/16/24 02:17
Creatinine 0.8 mg/dL (0.6-1.0) 10/16/24 02:17
eGFR > 60.00 10/16/24 02:17
Glucose 124 mg/dl (70-99) H 10/16/24 02:17
Calcium 8.5 mg/dl (8.4-10.2) 10/16/24 02:17
Albumin 2.4 g/dl (3.5-5.0) L 10/15/24 03:58
Physical Exam
-
Vital Signs:
Vital Signs
Temp Pulse Resp BP Pulse Ox
98.0 F 131 30 102/81 92
10/16/24 12:12 10/16/24 12:03 10/16/24 12:03 10/16/24 12:03 10/16/24 12:03
Respiratory:: Bilateral: CTA
Lung Excursion:: Normal
Abdomen:: Soft
Bowel Sounds:: Normal
Extremity Edema:: None: Bilateral:
[2024-10-16] MEDS: CORDARONE 103 MG IV (16:56)
--- NOTE | 2024-10-16 16:57 | PTCARENOTE ---
Amiodarone Bolus 150/100ml over 20 mints infusing via Left AC # 2; BP 113/85 Afib 122
[2024-10-16] MEDS: CORDARONE 518 MG IV (17:16)
--- NOTE | 2024-10-16 17:30 | PTCARENOTE ---
Amiodarone at 1 mcg/33.3 ml for 6 hours infusing via left AC # 2o
--- NOTE | 2024-10-16 18:18 | PTCARENOTE ---
Heparin infusing at 14ml via left wrist. PTT schedule at 18:00; Eliquis schedule to be given at 20:00 And Heparin qtt to be stopped at 20:00; Spoke to pharmacist: Donavan Ferrer not to draw schedule PTT. Continue per current order: D/C Heparin at 20:00
and Start Eliquis
--- NOTE | 2024-10-16 18:22 | PTCARENOTE ---
> patient in bed. Awake and oriented.
> Afib 122. Amiodarone qtt at 33.3/1mg (infusing via left AC # 20 ) patient denies chest pain and palpitation. Heparin at 14/14,00 (left wrist # 22). Trace edema to b/l le pedal pulses weak on palpation. BP via Rt upper arm: 120/91;
> Lungs clear. SOB noted. RR 29; Place on 2L via nasal canula per family request for comfort POX 94%/2L via nasal canula; CXR resulted with no acute abnormalities . Occasional dry non-productive cough
> Abdomen soft. Loose stool x 1 small. Unable to collect to send to c/diff. Patient placed on Contact Isolation until c/diff will be r/o
> Continent of urine, clear yellow.
> Skin intact. Ambulates in a room with waker. Call lopez within reach
--- NOTE | 2024-10-16 19:50 | PTCARENOTE ---
Pt. with sudden rigors, c/o being cold. ST 130s. Spo2 dropping to mid 80s- O2 increased to 6L but stayed mid to high 80s. Wheezing noted. Rectal temp = 101.3F. Tylenol given. Respiratory to bedside - treatment given. Placed on midflow 8L, now 96%.
Heparin gtt discontinued per orders. Eliquis given per APR.
[2024-10-16] MEDS: ELIQUIS 5 MG PO (19:56)
[2024-10-16] MEDS: ATIVAN 0.5 MG PO ×2 (21:16)
[2024-10-17] VITALS (21 sets, daily range): BP systolic 82–128; BP diastolic 61–98; PULSE 131–134; O2SAT 93; BMI 31.7
[2024-10-17] MEDS: ANCEF 10 IV ×2 (00:24→07:47)
--- NOTE | 2024-10-17 00:58 | PTCARENOTE ---
About 1 hour after tylenol given earlier, pt. afebrile, more comfortable, no more wheezing. Able to wean O2 to 6L at this time. Ativan given HS. Pt. been resting calmly since.
[2024-10-17 04:46] LABS: Hematocrit 25.6 % (37.0-47.0); Hemoglobin 8.8 g/dL (12.0-16.0); Mean Corp Hgb Conc. 34.4 g/dL (33.0-37.0); Mean Corpuscular Volume 93.4 fL (81.0-99.0); Nucleated Red Blood Cells % 0 %; Platelet Count 90 10^3/uL (130-400); Red Cell Dist. Width 15.7 % (11.5-14.5)
[2024-10-17 05:06] LABS: Blood Urea Nitrogen 15 mg/dl (7-17); Calcium 8.3 mg/dl (8.4-10.2); Carbon Dioxide 19 mmol/L (22-30); Chloride 112 mmol/L (98-107); Estimated Creatinine Clearance 68 ml/min; Glucose 144 mg/dl (70-99); Potassium 4.2 mmol/L (3.5-5.1); Sodium 135 mmol/L (135-145); eGFR > 60.00
[2024-10-17] MEDS: SYNTHROID 50 MCG PO (06:30)
[2024-10-17] MEDS: TYLENOL 650 MG PO ×2 (07:45→19:57)
[2024-10-17] MEDS: PACERONE PO (07:46)
[2024-10-17] MEDS: KLOR-CON 20 MEQ PO ×2 (07:46→19:58)
[2024-10-17] MEDS: ELIQUIS 5 MG PO ×2 (07:46→19:57)
--- NOTE | 2024-10-17 08:58 | W.PN.CD ---
Today's Communication / Plan
-
Stop IV Amio
Increase PO Amio 200 daily => 200 tid
Check ekg to confirm typical flutter
Add PO metoprolol ER
Watch for heart failure and other complications of IE
High risk
Guarded prognosis
Impression / Plan
-
64 y/o female with PSVT, HTN and BRCA on chemotherapy admitted in July 2024 with complicated MSSA sepsis/bacteremia related to port tip and [place] mitral valve endocarditis s/p radical mitral valve repair ([facility]hal, 08/10/24) subsequently complicated by
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 Presents with staph aureus bacteremia and concern for MV vegetation.
Optical Glass Inspector: Espinoza
Septic shock due to Staph aureus bacteremia (MSSA)
- We must assume this is likely recurrent mitral valve endocarditis, now on a recent repaired MV
- Post op TTEs in July and September with MV echodensity that concerned us BUT at that time pt doing well...
- Dr. Brian does not plan on repeat MV surgery
- Hope blood cultures clear with ATBs
- ID involved
Shortness of breath
- Multifactorial
- CXR with suspected multifocal pneumonia, atypical congestion possible
- Anemia
- Infection
- And recurrent onset A-fib/Flutter (Typical) with RVR.
Paroxysmal atrial fibrillation/typical flutter
- Rate: Fast 130s, likely 2:1 => check ekg. Add metoprolol ER
- Rhythm: Has been paroxysmal, seems to be in it for most of past day. Stop IV Amio, increasde PO Amio to 200 TID
- Anticoagulation: Eliquis
JAMES, resolved
Subjective: She is experiencing dyspnea at rest. In and out of atrial fibrillation on telemetry with heart rates up to 130s. No palpitations or chest pressure.
Physical Exam
Vital Signs/Labs
Vital Signs
Temp Pulse Resp BP Pulse Ox
97.6 F 133 35 102/75 96
10/17/24 03:47 10/17/24 08:02 10/17/24 08:02 10/17/24 06:00 10/17/24 06:00
10/16/24 10/17/24 10/18/24
06:59 06:59 06:59
Actual Weight 77 kg 78.5 kg
10/17/24 04:15
10/17/24 04:15
APTT Cancelled 10/16/24 18:00
Magnesium 1.4 mg/dl (1.6-2.3) L 10/14/24 04:36
Physical Exam
Constitutional: Other (appears acutely and chronically ill)
Cardiovascular: Rhythm & rate is regular (but rapid)
Respiratory: Respiratory effort normal and Crackles Absent
GI: Soft and Distention absent
Neuro/Psych: AO x 3
Data Reviewed
-
Date of Service: October 17, 2024
[2024-10-17] MEDS: TOPROL XL 25 MG PO ×2 (09:10→19:56)
--- NOTE | 2024-10-17 09:32 | PTCARENOTE ---
Pt. with sudden rigors, c/o being cold. Aflutter 130s. Spo2 dropping to mid 80s- O2 increased to 12L but stayed mid to high 80s. Wheezing noted. Unable to get rectal temp due to pt acute distress and high cesar position. Axillary temp wnl. Tylenol
given. Respiratory to bedside - treatment given. SpO2 slowly recovering. Cardiology to bedside, ECG performend to confirm a-flutter. Amio gtt stopped and metoprolol PO given.
--- NOTE | 2024-10-17 10:07 | W.PN.NEPH.PH ---
Today's Communication / Plan
-
follow BMP
Assessment/Plan
-
64y F with PMH significant for breast cancer and recent long and complicated hospital stay who presents to ED complaining of fevers / chills and noted to be hypotensive at physician's office today. Patient was admitted to 08/02 - 08/22
secondary to sepsis - presumably related to chest wall chemo port. Patient was found to have MSSA bacteremia and was treated with IV Vancomycin through September 21. Bacteremia was persistent despite catheter removal and IV abx. Patient suffered
embolic strokes during her hospital stay with vision and speech changes. She was taken to the OR on 08/10 and underwent mitral valve repair / annuloplasty, MAZE procedure and left atrial appendage clip. Blood cultures after 08/10 were negative.
She continued on treatment with IV Vancomycin (and PO vancomycin for prophylaxis).
Patient seen in renal consultation acute kidney injury. She was previously seen by us for hyponatremia
Impression.
Acute kidney injury admitting creatinine 2.4 with baseline 0.9= hemodynamic mediated hypovolemia sepsis
Bacteremia recurrent= staph
Breast CA
Plan.
follow BMP
may not need KCL much longer
continue abx ancef
may need to reduce metoprolol if BP remains low
-
-
Date of Service: October 17, 2024
CC / HPI / ROS
-
Chief Complaint:
Sepsis
History of Present Illness:
JAMES secondary to sepsis and hypotension
BP remains low stable
K up to 4.2 on supplementation BID
Cr normal
Review of Systems:
on supplemental O2
No chest pain or shortness of breath, but tachypneic
Nonoliguric
Labs
-
Labs:
WBC 19.3 10^3/uL (4.8-10.8) H 10/17/24 04:15
RBC 2.74 10^6/uL (4.20-5.40) L 10/17/24 04:15
Hgb 8.8 g/dL (12.0-16.0) L 10/17/24 04:15
Hct 25.6 % (37.0-47.0) L 10/17/24 04:15
Plt Count 90 10^3/uL (130-400) L D 10/17/24 04:15
Sodium 135 mmol/L (135-145) 10/17/24 04:15
Potassium 4.2 mmol/L (3.5-5.1) 10/17/24 04:15
Chloride 112 mmol/L (98-107) H 10/17/24 04:15
Carbon Dioxide 19 mmol/L (22-30) L 10/17/24 04:15
BUN 15 mg/dl (7-17) 10/17/24 04:15
Creatinine 0.8 mg/dL (0.6-1.0) 10/17/24 04:15
eGFR > 60.00 10/17/24 04:15
Glucose 144 mg/dl (70-99) H 10/17/24 04:15
Calcium 8.3 mg/dl (8.4-10.2) L 10/17/24 04:15
Albumin 2.4 g/dl (3.5-5.0) L 10/15/24 03:58
Physical Exam
-
Vital Signs:
Vital Signs
Temp Pulse Resp BP Pulse Ox
98.7 F 136 33 128/97 89
10/17/24 08:33 10/17/24 09:00 10/17/24 09:00 10/17/24 08:00 10/17/24 09:00
Cardiovascular:: Regular rate and rhythm
Respiratory:: Bilateral: Coarse
Lung Excursion:: Normal
Abdomen:: Nontender and Soft
Bowel Sounds:: Normal
Extremity Edema:: None: Bilateral:
--- NOTE | 2024-10-17 12:00 | PTCARENOTE ---
Pt began asking for tylenol approx 2 hr after last dose stating she feels her fever coming back. Explained that we had to wait 4 hr in between doses. She expressed her concern that she didn't want to feel as bad as this morning. RN promised to be
back at 4hr julisa with more tylenol. Continued to ring regularly requesting the tylenol early. Morning and noon temp WNL. Gave Hydroxyzine for possible element of anxiety. A-flutter continues in 110s while pt now sleeping.
[2024-10-17] MEDS: ATARAX 10 MG PO ×2 (12:28→23:26)
--- NOTE | 2024-10-17 14:39 | W.PN.ID1 ---
Date of Service
Date of Service: October 17, 2024
Today's Communication
See below.
Assessment / Plan
# Acute hypoxemic respiratory failure on midlow oxygen (10/16)
# RLL PNA
# Relapse complicated MSSA bacteremia/IE
# Infective endocarditis of recent MV repair
# Hypotensive
# fever - recur
# leukocytosis, trending up. C. diff neg
# Acute thrombocytopenia
# Afib with RVR
# JAMES - resolving
# Allergy to PCN, cephalosporin, cipro, sulfa; tolerated cefazolin challenge on 10/14
#Recent history of MSSA picayune mitral valve IE, SPECIAL AGENT septic emboli with left vision loss
. 08/10/24 s/p open radical mitral valve repair debridement of annulus, patch repair, annuloplasty with 30 mm band
. Completed IV Vancomycin (SPECIAL AGENT penetration) through 09/21/24 (6 weeks from MV repair)
Plan:
- 10/07 outpt DONNELL: mobile echogenic mass (0.74cm x 1.23cm) arising from adjacent or from annuloplasty ring MV
- Blood cx x 4 MSSA
- repeat blood cx's daily until persistently clear
- Replace cefazolin with meropenem to bacteremia and also cover for R side PNA.
- Add doxycycline for atypical coverage of PNA.
- Trend temps/wbc/oxygen status
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
Cardio-embolic CVA with left vision loss
Right breast cancer status post lumpectomy, was on adjuvant chemo, last received 08/01/24
Hypertension
Hypothyroidism
Atrial fib
Anxiety
Left Parotid gland tumor excision 2024
Port placement -> dc'd 08/17
Cholecystectomy
Hysterectomy
Finger tumor radical resection 1985
Sacrocolpopexy
Chief Complaint
-: Bacteremia
Subjective / Review of Systems
c/o cough, nonproductive. SOB.
Vital Signs / Physical Exam
Vital Signs
Vital Signs
Temp Pulse Resp BP Pulse Ox
97.8 F 122 26 88/73 96
10/17/24 11:53 10/17/24 13:00 10/17/24 13:00 10/17/24 12:00 10/17/24 13:00
Physical Exam
Constitutional: Acutely Ill
Eyes: Sclera Anicteric
Cardiovascular: Irregular Rate and S1/S2
Pulmonary: Rales (R base) and Other (tachypneic)
Gastrointestinal: Soft, Non Tender and Non Distended
Extremities: Negative Edema
Neurological: AO x 3
Objective Data
Lab Data
Lab Results
10/17/24 04:15
10/17/24 04:15
APTT Cancelled 10/16/24 18:00
Estimated Creat Clear 68 ml/min 10/17/24 04:15
Lactic Acid Cancelled 10/14/24 09:48
Total Bilirubin 0.6 mg/dl (0.2-1.3) 10/15/24 03:58
AST 30 U/L (14-36) 10/15/24 03:58
ALT 18 U/L (0-35) 10/15/24 03:58
Alkaline Phosphatase 66 U/L (38-126) 10/15/24 03:58
Most recent labs reviewed.
Micro Results:
10/14/24 10:11 Blood Culture - Preliminary
Blood/Venous S aureus-Methicillin Sensitive
Gram Stain - Final
10/16/24 21:50 C. difficile GDH Antigen & Toxins - Final
Feces/Stool Negative for toxigenic C.difficile
10/17/24 04:14 Blood Culture - Pending
Blood/Venous
10/16/24 02:18 Blood Culture - Preliminary
Blood/Venous No Growth in 24 hours- Final report to follow
10/14/24 10:11 Blood Culture - Preliminary
Blood/Venous S aureus-Methicillin Sensitive
Gram Stain - Preliminary
10/13/24 17:09 Blood Culture - Final
Blood/Venous S aureus-Methicillin Sensitive
Gram Stain - Final
10/13/24 16:07 Blood Culture - Final
Blood/Venous S aureus-Methicillin Sensitive
Gram Stain - Final
10/13/24 18:35 Urine Culture - Final
Urine NO GROWTH
10/13/24 17:09 Influenza Types A & B (DAHLIA) - Final
Nasal Swab Negative for Influenza A & B, NAAT
Negative results must be combined with clinical observations
and patient history.
Nucleic Acid Amplification test (NAAT)performed on the
[employer] platform.
10/16/24 CXR: There are new patchy airspace opacities throughout the right lung which likely represent multifocal pneumonia, less likely asymmetric edema
10/13/24 CXR: No acute cardiopulmonary process.
10/07/24 DONNELL: Adjacent or possibly arising from the ring near the posterior leaflet, there is a mobile echogenic mass (0.74cm x 1.23cm). No signficant regurgitation. Mitral valve gradient pk/mean 12/5mmHg.
Compared to the Intraop DONNELL report from 08/10/24, the finding associated with the mitral valve reported is in similar location. Measurements differ a bit (0.7x0.6cm on the prior)
--- NOTE | 2024-10-17 14:52 | CM ---
IV Amiodarone transitioned to PO. IV/Meropenem. Guarded prognosis, high risk, observe for heart failure. Discharge POC: PT recommending SNF. Will provide [employer] list to patient.
--- NOTE | 2024-10-17 14:58 | W.PN.HOSP.TC ---
Today's Communication/Plan
-
Assessment / Plan
Assessment / Plan
Septic shock secondary to MSSA bacteremia/endocarditis
Shock has resolved, off pressors
Continue IV cefazolin
Will require persistent blood culture negativity to determine duration of antibiotics
Follow fever curve
Infectious disease following
Cardiology following
Paroxysmal atrial fibrillation/flutter
Stop IV amiodarone per cardiology
Increase p.o. Amio to 200 mg 3 times daily
Add metoprolol extended release per cardiology
Continue anticoagulation with Eliquis
Monitor on telemetry
JAMES, resolved
Hyponatremia, suspected SIADH, resolved
Normocytic anemia in the setting of sepsis
Transfuse if hemoglobin less than 7
Diarrhea
C. difficile negative
Provide loperamide
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
Persistent right-sided weakness vision change and speech impairment
Continue PT/OT/speech
Breast CA
S/p bilateral mastectomies
Of current chemotherapy regimen due to hospitalization
Hypothyroidism
Continue levothyroxine
IMU
Anticipated Discharge: > 48 hours
Subjective/Interval History
-
Date of Service: October 17, 2024
Seen and examined. No new complaints. No acute overnight events.
Continues to have fevers rigors goes in and out of atrial flutter
Has components/exhibiting features of anxiety
Objective Data
-
Labs:
Laboratory Results
10/17/24
04:15
WBC 19.3 H
Hgb 8.8 L
Hct 25.6 L
Plt Count 90 L D
Sodium 135
Potassium 4.2
Chloride 112 H
Carbon Dioxide 19 L
BUN 15
Creatinine 0.8
Glucose 144 H
Calcium 8.3 L
Vital Signs:
Vital Signs
Temp Pulse Resp BP Pulse Ox
97.8 F 122 26 88/73 96
10/17/24 11:53 10/17/24 13:00 10/17/24 13:00 10/17/24 12:00 10/17/24 13:00
I&O
10/16/24 10/17/24 10/18/24
06:59 06:59 06:59
Intake Total 1987 1646.8 / 1646.8 546.8 / 546.8
Balance 1987 1646.8 / 1646.8 546.8 / 546.8
Physical Exam
-
General: Well Developed, Well Nourished and Comfortable
HEENT: Normocephalic and Atraumatic
Respiratory: Clear to Auscultation
Cardiac: Regular Rhythm and Tachycardic
GI: Soft, Nontender and Nondistended
Musculoskeletal: No Clubbing
Skin: Warm and Dry
Neuro: Awake and AO x 3
[2024-10-17] MEDS: PACERONE 200 MG PO ×2 (16:42→21:28)
[2024-10-17] MEDS: STERILE WATER FOR INJECTION 10 ML IV ×2 (16:42→21:29)
[2024-10-17] MEDS: MERREM 500 MG IV ×2 (16:43→21:29)
[2024-10-17] MEDS: VIBRAMYCIN 100 MG PO (19:56)
[2024-10-17] MEDS: ATIVAN 0.5 MG PO (21:28)
--- NOTE | 2024-10-17 22:18 | PTCARENOTE ---
Received pt from previous RN. Pt is AAOx3, anxious, flat. Aflutter/afib w/ PVCs on the monitor. Pt on 6L midflow O2 sat 93%, lungs diminished/exp wheeze, BLACKWELL/tachypneic. Pt states it is hard to breathe, RT notified scheduled treatment provided.
BSCx1, loose stools. Pt c/o 6/10 lower back pain, PRN Tylenol given (see MAR). PRN Ativan given (see MAR). CHG bath provided. Family at bedside. Call lopez in reach. Safe environment maintained.
--- NOTE | 2024-10-17 22:23 | PTCARENOTE ---
Received pt from previous RN. Pt is AAOx3, anxious, flat. Aflutter/afib w/ PVCs on the monitor. Pt on 6L midflow O2 sat 93%, lungs diminished/exp wheeze, BLACKWELL/tachypneic. Pt states it is hard to breathe, RT notified PRN treatment provided. BSCx1,
loose stools. Pt c/o 6/10 lower back pain, PRN Tylenol given (see MAR). PRN Ativan given (see MAR). CHG bath provided. Family at bedside. Call lopez in reach. Safe environment maintained.
[2024-10-18] VITALS (32 sets, daily range): BP systolic 72–137; BP diastolic 46–104; BMI 31.7
[2024-10-18] MEDS: MERREM 500 MG IV ×4 (04:16→21:03)
[2024-10-18] MEDS: STERILE WATER FOR INJECTION 10 ML IV ×4 (04:16→21:03)
[2024-10-18 05:13] LABS: Hematocrit 27.1 % (37.0-47.0); Hemoglobin 9.1 g/dL (12.0-16.0); Mean Corp Hgb Conc. 33.6 g/dL (33.0-37.0); Mean Corpuscular Volume 94.1 fL (81.0-99.0); Platelet Count 142 10^3/uL (130-400); Red Cell Dist. Width 16.0 % (11.5-14.5)
[2024-10-18 05:34] LABS: Blood Urea Nitrogen 21 mg/dl (7-17); Calcium 8.2 mg/dl (8.4-10.2); Carbon Dioxide 19 mmol/L (22-30); Chloride 110 mmol/L (98-107); Estimated Creatinine Clearance 54 ml/min; Glucose 123 mg/dl (70-99); Potassium 4.6 mmol/L (3.5-5.1); Sodium 134 mmol/L (135-145); eGFR > 60.00
[2024-10-18] MEDS: SYNTHROID 50 MCG PO (06:17)
[2024-10-18] MEDS: KLOR-CON PO (07:26)
[2024-10-18] MEDS: VIBRAMYCIN 100 MG PO (08:47)
[2024-10-18] MEDS: PACERONE 200 MG PO (08:48)
[2024-10-18] MEDS: ELIQUIS 5 MG PO (08:48)
[2024-10-18] MEDS: TOPROL XL 25 MG PO (08:48)
[2024-10-18] MEDS: SUBLIMAZE 50 MCG IV (09:38)
[2024-10-18] MEDS: SUBLIMAZE 100 IV ×2 (09:39→23:34)
[2024-10-18] MEDS: DIPRIVAN 100 IV ×2 (09:42→16:28)
--- NOTE | 2024-10-18 10:13 | PTCARENOTE ---
Pt SOB at rest with RR 35-45. Pt OOB to BSC with no recovery after in bed. FiO2 increased to 12L MF then NRB mask. RR continues in 40s and SpO2 recovering to low 90s. Motor And Controls Tester to bedside to evaluate. Pt agreeable to intubation.
contacted by phone, talking with environmental aid and pt. Premedicated with fentanyl, etomidate, and rocuronium. Pt intubated with 8.0 ETT, 24 at lip. Tolerated procedure well. SpO2 to 97% on AC 18/450/8/100%. to bedside after procedure.
Restraints applied, fent and propofol gtts started as ordered. Dobhoff placed in R nare to 75cm.
--- NOTE | 2024-10-18 10:21 | W.PN.ID1 ---
Date of Service
Date of Service: October 18, 2024
Today's Communication
See below.
Assessment / Plan
# Acute hypoxemic respiratory failure (onset 10/16)on midlow oxygen and NRB
# RLL PNA
# Relapse complicated MSSA bacteremia/IE
# Infective endocarditis of recent MV repair
# fever - resolving
# leukocytosis, trending up. C. diff neg
# Acute thrombocytopenia - resolved
# Afib with RVR
# JAMES - resolved
# Allergy to PCN, cephalosporin, cipro, sulfa; tolerated cefazolin challenge on 10/14
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
. 08/10/24 s/p open radical mitral valve repair debridement of annulus, patch repair, annuloplasty with 30 mm band
. Completed IV Vancomycin (FRONT OFFICE MANAGER penetration) through 09/21/24 (6 weeks from MV repair)
Plan:
- 10/07 outpt DONNELL: mobile echogenic mass (0.74cm x 1.23cm) arising from adjacent or from annuloplasty ring MV
- Blood cx x 4 MSSA
- 10/16 blood cx's neg to date.
- repeat blood cx's daily until persistently clear
- Continue meropenem to cover bacteremia and R side PNA.
-Continue doxycycline (d20 for atypical coverage of PNA.
- Trend temps/wbc/oxygen status
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
Cardio-embolic CVA with left vision loss
Right breast cancer status post lumpectomy, was on adjuvant chemo, last received 08/01/24
Hypertension
Hypothyroidism
Atrial fib
Anxiety
Left Parotid gland tumor excision 2024
Port placement -> dc'd 08/17
Cholecystectomy
Hysterectomy
Finger tumor radical resection 1985
Sacrocolpopexy
Chief Complaint
-: Bacteremia
Subjective / Review of Systems
SOB better.
Vital Signs / Physical Exam
Vital Signs
Vital Signs
Temp Pulse Resp BP Pulse Ox
97.5 F 101 18 89/71 96
10/18/24 08:00 10/18/24 10:15 10/18/24 10:15 10/18/24 10:15 10/18/24 10:15
Physical Exam
Constitutional: Acutely Ill
Head: Other (No frontal or maxillary sinus tenderness)
Cardiovascular: Irregular Rate (tachycardic)
Pulmonary: Rales (right)
Gastrointestinal: Soft, Non Tender, Non Distended and Normal Bowel Sounds
Genito-Urinary: Negative CVA Tenderness
Extremities: Negative Edema
Neurological: Other (Drowsy)
Objective Data
Lab Data
Lab Results
10/18/24 04:44
10/18/24 04:44
APTT Cancelled 10/16/24 18:00
Estimated Creat Clear 54 ml/min 10/18/24 04:44
Lactic Acid Cancelled 10/14/24 09:48
Total Bilirubin 0.6 mg/dl (0.2-1.3) 10/15/24 03:58
AST 30 U/L (14-36) 10/15/24 03:58
ALT 18 U/L (0-35) 10/15/24 03:58
Alkaline Phosphatase 66 U/L (38-126) 10/15/24 03:58
Most recent labs reviewed.
Micro Results:
10/14/24 10:11 Blood Culture - Final
Blood/Venous S aureus-Methicillin Sensitive
Gram Stain - Final
10/18/24 04:44 Blood Culture - Pending
Blood/Venous
10/17/24 04:14 Blood Culture - Preliminary
Blood/Venous No Growth in 24 hours- Final report to follow
10/16/24 02:18 Blood Culture - Preliminary
Blood/Venous No Growth in 48 hours- Final report to follow
10/16/24 21:50 C. difficile GDH Antigen & Toxins - Final
Feces/Stool Negative for toxigenic C.difficile
10/14/24 10:11 Blood Culture - Preliminary
Blood/Venous S aureus-Methicillin Sensitive
Gram Stain - Preliminary
10/13/24 17:09 Blood Culture - Final
Blood/Venous S aureus-Methicillin Sensitive
Gram Stain - Final
10/13/24 16:07 Blood Culture - Final
Blood/Venous S aureus-Methicillin Sensitive
Gram Stain - Final
10/13/24 18:35 Urine Culture - Final
Urine NO GROWTH
10/13/24 17:09 Influenza Types A & B (DAHLIA) - Final
Nasal Swab Negative for Influenza A & B, NAAT
Negative results must be combined with clinical observations
and patient history.
Nucleic Acid Amplification test (NAAT)performed on the
[employer] platform.
10/16/24 CXR: There are new patchy airspace opacities throughout the right lung which likely represent multifocal pneumonia, less likely asymmetric edema
10/13/24 CXR: No acute cardiopulmonary process.
10/07/24 DONNELL: Adjacent or possibly arising from the ring near the posterior leaflet, there is a mobile echogenic mass (0.74cm x 1.23cm). No signficant regurgitation. Mitral valve gradient pk/mean 12/5mmHg.
Compared to the Intraop DONNELL report from 08/10/24, the finding associated with the mitral valve reported is in similar location. Measurements differ a bit (0.7x0.6cm on the prior)
--- NOTE | 2024-10-18 10:30 | W.PN.NEPH.PH ---
Today's Communication / Plan
-
Reduce potassium
Assessment/Plan
-
64y F with PMH significant for breast cancer and recent long and complicated hospital stay who presents to ED complaining of fevers / chills and noted to be hypotensive at physician's office today. Patient was admitted to 08/02 - 08/22
secondary to sepsis - presumably related to chest wall chemo port. Patient was found to have MSSA bacteremia and was treated with IV Vancomycin through September 21. Bacteremia was persistent despite catheter removal and IV abx. Patient suffered
embolic strokes during her hospital stay with vision and speech changes. She was taken to the OR on 08/10 and underwent mitral valve repair / annuloplasty, MAZE procedure and left atrial appendage clip. Blood cultures after 08/10 were negative.
She continued on treatment with IV Vancomycin (and PO vancomycin for prophylaxis).
Patient seen in renal consultation acute kidney injury. She was previously seen by us for hyponatremia
Impression.
Acute kidney injury admitting creatinine 2.4 with baseline 0.9= hemodynamic mediated hypovolemia sepsis
Bacteremia recurrent= staph
Breast CA
Plan.
follow BMP
Reduce potassium to daily
continue abx ancef
may need to reduce metoprolol if BP remains low
Lasix 40 IV given chest x-ray findings
-
-
Date of Service: October 18, 2024
CC / HPI / ROS
-
Chief Complaint:
Sepsis
History of Present Illness:
JAMES secondary to sepsis and hypotension
BP remains low stable
K up to 4.6 on supplementation BID
Cr normal
Review of Systems:
on supplemental O2
No chest pain or shortness of breath, but tachypneic
Nonoliguric
Tachypneic
Labs
-
Labs:
WBC 23.4 10^3/uL (4.8-10.8) H 10/18/24 04:44
RBC 2.88 10^6/uL (4.20-5.40) L 10/18/24 04:44
Hgb 9.1 g/dL (12.0-16.0) L 10/18/24 04:44
Hct 27.1 % (37.0-47.0) L 10/18/24 04:44
Plt Count 142 10^3/uL (130-400) D 10/18/24 04:44
Sodium 134 mmol/L (135-145) L 10/18/24 04:44
Potassium 4.6 mmol/L (3.5-5.1) 10/18/24 04:44
Chloride 110 mmol/L (98-107) H 10/18/24 04:44
Carbon Dioxide 19 mmol/L (22-30) L 10/18/24 04:44
BUN 21 mg/dl (7-17) H 10/18/24 04:44
Creatinine 1.0 mg/dL (0.6-1.0) 10/18/24 04:44
eGFR > 60.00 10/18/24 04:44
Glucose 123 mg/dl (70-99) H 10/18/24 04:44
Calcium 8.2 mg/dl (8.4-10.2) L 10/18/24 04:44
Albumin 2.4 g/dl (3.5-5.0) L 10/15/24 03:58
Physical Exam
-
Vital Signs:
Vital Signs
Temp Pulse Resp BP Pulse Ox
97.5 F 101 18 89/71 96
10/18/24 08:00 10/18/24 10:15 10/18/24 10:15 10/18/24 10:15 10/18/24 10:15
Cardiovascular:: Regular rate and rhythm
Respiratory:: Bilateral: Coarse
Lung Excursion:: Normal
Abdomen:: Nontender and Soft
Bowel Sounds:: Normal
Extremity Edema:: None: Bilateral:
[2024-10-18 10:42] LABS: B.E. -8.8 mmol/L; HCO3 17.4 mmol/L (21-28); O2 Saturation % 99.4 % (94-98); PCO2 38 mmHg (32-35); PO2 114 mmHg (83-108)
[2024-10-18] MEDS: LASIX 40 MG IV (10:55)
--- NOTE | 2024-10-18 11:28 | OR.RPT ---
Operative Report
Operative Report
Rapid sequence intubation
Indication. Hypoxic respiratory failure. Patient saturating mid 80's to 90% on mid-lfow and nonrebreather tachypnea, tachycardia and increased work of breathing. Respiratory distress noted.
Consent: Obtained form the patient.
Pre-medications: Fentanyl 50 mcg IV x 1
Patient was placed in supine position. Nonrebreather was used to preoxygenate, subsequently [id number] ventilation was applied as patient saturations were in mid 80's. 24 mg of Etomidate was given as an induction agent followed by 80 mg of
Rocuronium as paralytic. BVM was used to ventilate. GlideScope was used, blade size #3, grade 1 view of vocal cords was obtained and ET tube, 8.0, was advanced under direct visualization without any difficulty. Color change was confirmed and
patient was bagged until saturations were around 89%. Subsequently patient was connected to ventilator. Bilateral good air entry noted. Tube was secured at 22 cm at the teeth. Patient tolerated the procedure well. Post intubation saturation 96%
on mechanical ventilation.
Time spent: 25 min
Complications: None
Attempts: 1
Date of Service: 10/18/2024
--- NOTE | 2024-10-18 11:35 | CON.INTV ---
Consultation
Consultation Request
Date/Time Consultation Requested: 10/18/2024
Date/Time Consultation Performed: 10/18/2024
Medical History
-
Chief Complaint: Shortness of breath
History of Present Illness:
Guide Dog Trainer service was called by nursing staff for emergent bedside evaluation for respiratory distress. Patient noted to be an extremis with increased work of breathing. Patient was emergently intubated after brief evaluation and obtaining
verbal consent. Most of the information below obtained from discussion with other healthcare providers and review of patient's chart.
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
chemotherapy. Patient had Mediport removed and mitral valve repair performed by Dr. Brian in 07/2024. Patient was treated with IV antibiotic for endocarditis. 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
related to endocarditis and had been on anticoagulation. This admission, unfortunately patient presented again with acute renal failure along with Staph aureus bacteremia, methicillin sensitive with concern for mitral valve endocarditis. DONNELL and
echocardiogram reviewed suggestive of mitral valve vegetation with clinical concern for infected mitral valve. Patient had been on broad-spectrum antibiotics. Over the last 24 to 48 hours, patient has had increasing oxygen requirement with some
dyspnea, x-ray concerning for atypical pneumonia versus pulmonary edema. She had been on mid flow and subsequently nonrebreather was applied earlier this morning. 10/18, patient noted to have worsening shortness of breath with increasing oxygen
requirement and increasing work of breathing. Guide Dog Trainer consult was placed emergently and on patient examination, respiratory distress was noted. Stat chest x-ray was suggestive of worsening pulmonary opacities. Patient was emergently intubated
and placed on mechanical ventilation. Also noted to have mild hypotension requiring low-dose Levophed infusion.
Past Medical History: Reports Cancer (Right breast cancer status post conservative lumpectomy with sentinel lymph node dissection, IDC G3 [id number] ER pos [place] neg HER2 neg Ki-67 50-60% ), HTN, Hypercholesterolemia, Hypothyroidism, Valvular Disease
(Mild mitral regurgitation. SBE.) and Other (Paroxysmal A-Fib. Bilateral embolic CVAs.)
Past Surgical History: Reports Other
Additional Past Surgical History:
08/10 - Mitral Valve Repair, MAZE procedure, left atrial appendage clip
Laparoscopic hysterectomy
Cholecystectomy
Left parotid tumor resection
Right localized lumpectomy
Sacrocolpopexy
Social History
Alcohol: None
Drug: None
Personal:
Living: With Family
Family History
Family History: Not pertinent
Allergies / Home Medications
Allergies
Allergy/AdvReac Type Severity Reaction Status Date / Time
apricot (Apricot) Allergy Hives Verified 09/01/15 14:39
blueberry Allergy Hives Verified 08/03/24 21:44
cefprozil (From Cefzil) Allergy Hives - Verified 10/14/24 17:01
added
11/03/2011
Cephalosporins Allergy Unknown - Verified 10/14/24 17:01
added in
2011
ciprofloxacin (From Cipro) Allergy Unknown - Verified 10/14/24 09:56
added
06/22/2006
dextromethorphan (From Allergy Unknown Verified 05/24/24 10:58
[place] DMT)
Penicillins Allergy Hives - Verified 10/14/24 17:01
from prior
to or on
06/22/2006
pyrilamine (From [place] DMT) Allergy Unknown Verified 05/24/24 10:58
scallops Allergy Unknown Verified 05/24/24 11:02
Sulfa (Sulfonamide Allergy Hives - Verified 10/14/24 09:56
Antibiotics) added
(Sulfa(Sulfonamide 06/22/2006
Antibiotics))
sulfamethoxazole (From Allergy Hives - Verified 10/14/24 09:56
Bactrim) added
06/22/2006
trimethoprim (From Bactrim) Allergy Hives - Verified 10/14/24 09:56
added
06/22/2006
venom-honey bee Allergy Hives Verified 08/03/24 21:44
Home Medications
�Medication �Instructions �Recorded �Confirmed �Last Taken �Type
lorazepam 0.5 mg tablet 0.5 mg PO DAILYPRN PRN anxiety 11/03/11 10/07/24 10/06/24 21:00 History
levothyroxine 50 mcg tablet 50 mcg PO DAILY Thyroid 05/24/24 08/22/24 10/06/24 07:00 History
amiodarone 200 mg tablet (Pacerone) 200 mg PO DAILY Arrhythmia 30 days 09/13/24 10/07/24 10/06/24 07:00 Rx
#30 tabs
apixaban 5 mg tablet (Eliquis) 5 mg PO BID Arrhythmia 30 days #60 09/13/24 10/07/24 10/06/24 19:00 Rx
tabs
lidocaine 4 % topical patch 1 patch topical DAILY pain-low 09/13/24 10/07/24 10/06/24 07:00 Rx
back pain 30 days #30 ea
metoprolol succinate 25 mg 25 mg PO DAILY Heart 09/13/24 10/07/24 10/06/24 07:00 Rx
tablet,extended release 24 hr disease/condition 30 days #30 tabs
potassium citrate 10 mEq (1,080 20 meq (2 x 10 mEq (1,080 mg)) PO 09/13/24 10/07/24 10/06/24 07:00 Rx
mg) tablet,extended release DAILY supplement 30 days #60 tabs
furosemide 40 mg tablet 40 mg PO DAILY Fluid 10/07/24 10/07/24 10/06/24 07:00 History
retention/Swelling
Review of Systems
-
History Source: Patient
Respiratory: Trouble Breathing
Hematologic/Lymphatic: Other (Rest of the review of system essentially unremarkable.)
Vitals / Labs / Diagnostic Testing
Vital Signs
Temp Pulse Resp BP Pulse Ox
97.5 F 101 18 89/71 92
10/18/24 08:00 10/18/24 10:15 10/18/24 10:15 10/18/24 10:15 10/18/24 11:15
Lab Data
10/18/24 04:44
10/18/24 04:44
Laboratory Results
10/18/24
10:29
pH 7.27 L
pCO2 38 H
pO2 114 H
HCO3 17.4 L
O2 Delivery Level
Microbiology
10/14/24 10:11 Blood/Venous Blood Culture - Final
S aureus-Methicillin Sensitive
10/14/24 10:11 Blood/Venous Gram Stain - Final
10/17/24 04:14 Blood/Venous Blood Culture - Preliminary
No Growth in 24 hours- Final report to follow
10/16/24 02:18 Blood/Venous Blood Culture - Preliminary
No Growth in 48 hours- Final report to follow
10/16/24 21:50 Feces/Stool C. difficile GDH Antigen & Toxins - Final
Negative for toxigenic C.difficile
10/14/24 10:11 Blood/Venous Blood Culture - Preliminary
S aureus-Methicillin Sensitive
10/14/24 10:11 Blood/Venous Gram Stain - Preliminary
10/13/24 17:09 Blood/Venous Blood Culture - Final
S aureus-Methicillin Sensitive
10/13/24 17:09 Blood/Venous Gram Stain - Final
10/13/24 16:07 Blood/Venous Blood Culture - Final
S aureus-Methicillin Sensitive
10/13/24 16:07 Blood/Venous Gram Stain - Final
10/13/24 18:35 Urine Urine Culture - Final
NO GROWTH
Diagnostic Testing:
Physical Exam
-
HEENT: Normocephalic
Cardiovascular: S1/S2 (Tachycardia)
Respiratory: Rales, Rhonchi and Accessory Resp Muscle Use
GI: Soft and Non Distended
Neurology: Awake, Alert and Oriented
Skin: Warm
General: Respiratory Distress
Assessment
-
#1. Acute hypoxic respiratory failure with respiratory distress (intubated 10/18)
- X-ray suggestive of pulmonary edema, cardiogenic versus noncardiogenic pulmonary edema
- Patient was noted to be in respiratory distress on nonrebreather as well as mid flow with saturations in mid to high 80s with increased work of breathing, emergently evaluated and rapid sequence intubation was performed on 10/18.
- Chest x-ray with rapidly worsening opacities concerning for pulmonary edema versus developing ARDS
- Continue lung protective ventilation with 6 mL/kg tidal volume, PEEP at 10, target plateau pressure 30 or less. Stat ABG and then adjust mechanical ventilator settings accordingly
- Lasix 40 mg IV stat
#2. Shock, concerning for septic vs cardiogenic shock.
- Patient currently requiring Levophed at 2, sedation and intubation also likely contributing to hypotension
- BNP noted to be above 19,000 and lactate elevated above 4, concerning for cardiogenic shock in the setting of valvular heart disease
- Stat echocardiogram for further evaluation. Discussed with cardiology service. Concern for Mitral regurgitation leading to worsening pulmonary edema
- Serial lactate
- Will initiate feeding once lactate stabilized
#3. Pulmonary edema
- Suspect related to underlying valvular heart disease with decompensated heart failure. Developing ARDS in the setting of MSSA bacteremia also in differential diagnosis
- Lung protective ventilation, diuresis as tolerated
- Continue mechanical ventilation, follow-up chest x-ray in a.m.
- Serial arterial blood gas, monitor input and output closely
- Pneumonia, septic emboli also in differential diagnosis. Once patient is more stable we will pursue CT chest for further evaluation
#4. MSSA bacteremia with mitral valve endocarditis, relapsed.
- Prior history of MSSA lumbee mitral valve endocarditis (felt to be related to med-port) s/p open radical mitral valve repair pair with annuloplasty in 08/17, unfortunately relapsed MSSA endocarditis 09/2024
- Infectious disease service on case, current continue current antibiotics
- Blood cultures over last 48 hours without any bacterial growth
- Continue meropenem and doxycycline per infectious disease service.
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
#5. Paroxysmal atrial flutter/fibrillation.
- Patient has been transition to oral amiodarone, will continue via feeding tube
- Hold metoprolol in view of hypotension, shock requiring pressor support
- Currently anticoagulated with Eliquis 5 mg twice daily
#6. JAMES on admission.
- Currently resolved. Hypovolemia and sepsis felt to be likely etiology. Admission creatinine was 2.4, normal now. Nephrology service is on case
- Initiate diuresis as tolerated by blood pressure considering worsening pulmonary edema, elevated BNP, monitor renal function closely
Other medical diagnosis
- Hyponatremia, improved
- History of breast cancer, had been on adjuvant chemotherapy, last received 07/2024
- Hypothyroidism
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
- Normocytic anemia
Updated patient's and son at bedside. Patient critically ill.
Critical Care time 68 mins -- The patient is admitted for acute critical illness for the treatment of vital organ failure and/or prevention of further life-threatening conditions. Total care includes time spent in review of history, physical exam,
medications, hemodynamic/ventilator parameters, laboratory data, imaging and discussion with house staff, pharmacy, respiratory therapy, inner tube tuber machine operator, and nursing.
Data:
CXR 09/2024: Diffuse increased interstitial opacity with some small areas of confluent airspace opacity, probably interstitial and alveolar edema. Minimal bilateral effusions.
DONNELL 09/2024: 1. Normal left ventricular size, wall thickness and systolic function. No regional wall motion abnormalities are seen.
2. Ejection fraction is 55-60% by visual assesment.
3. Adjacent or possibly arising from the ring near the posterior leaflet, there is a mobile echogenic mass (0.74cm x 1.23cm). No signficant regurgitation. Mitral valve gradient pk/mean 12/5mmHg.
4. Compared to the Intraop DONNELL report from 08/10/24, the finding associated with the mitral valve reported is in similar location. Measurements differ a bit (0.7x0.6cm on the prior), but I cannot visualize for complete comparison.
--- NOTE | 2024-10-18 12:27 | W.PN.CD ---
Today's Communication / Plan
-
- Echo is being updated
- I asked CT Surgery to assess. Interventional cardiology aware
- Agree with IV Lasix
- May need mechanical support and MV Replacement, considering repeat DONNELL if needed
- Critically ill
- Family updated
Impression / Plan
-
64 y/o female with PSVT, HTN and BRCA on chemotherapy admitted in July 2024 with complicated MSSA sepsis/bacteremia related to port tip and cachil dehe mitral valve endocarditis s/p radical mitral valve repair (Brian, 08/10/24) subsequently complicated by
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 Presents with staph aureus bacteremia and concern for MV vegetation.
Glass Blowing Lathe Operator: Espinoza
Status has worsened
- Intubated on BP support
- CXR with diffuse infiltrates
- pBNP elevated
- Echo is being updated
- I asked CT Surgery to assess. Interventional cardiology aware
- Agree with IV Lasix
- May need mechanical support and MV Replacement, considering repeat DONNELL if needed
- Critically ill
- Family updated
Septic shock due to Staph aureus bacteremia (MSSA)
- We must assume this is likely recurrent mitral valve endocarditis, now on a recent repaired MV
- Post op TTEs in July and September with MV echodensity that concerned us BUT at that time pt doing well...
- Hope blood cultures clear with ATBs
- ID involved
Shortness of breath
- Multifactorial
- CXR with suspected multifocal pneumonia, atypical congestion possible
- Anemia
- Infection
- And recurrent onset A-fib/Flutter (Typical) with RVR.
Paroxysmal atrial fibrillation/typical flutter
- Rate: Fast 130s, likely 2:1 => check ekg. Add metoprolol ER
- Rhythm: Has been paroxysmal, seems to be in it for most of past day. Stop IV Amio, increasde PO Amio to 200 TID
- Anticoagulation: Eliquis
JAMES, resolved
Subjective: Intubated
Physical Exam
Vital Signs/Labs
Vital Signs
Temp Pulse Resp BP Pulse Ox
98.1 F 117 20 83/70 90
10/18/24 12:06 10/18/24 12:00 10/18/24 12:00 10/18/24 12:00 10/18/24 12:00
10/17/24 10/18/24 10/19/24
06:59 06:59 06:59
Actual Weight 78.5 kg 78.6 kg
10/18/24 04:44
10/18/24 04:44
APTT Cancelled 10/16/24 18:00
Magnesium 1.4 mg/dl (1.6-2.3) L 10/14/24 04:36
10/18/24
11:13
[id number] Pept 62055
Physical Exam
Cardiovascular: Rhythm/rate is irregular and S1S2 is normal
Respiratory: Other (mechanically ventillated)
GI: Soft and Distention absent
Data Reviewed
-
Date of Service: October 18, 2024
[2024-10-18 12:50] LABS: B.E. -10.5 mmol/L; HCO3 16.3 mmol/L (21-28); O2 Saturation % 99.6 % (94-98); PCO2 39 mmHg (32-35); PO2 114 mmHg (83-108)
--- NOTE | 2024-10-18 12:59 | CM ---
Patient on ventilator, infected port, Breast Ca, lives with spouse.
Plan; To follow with progress and recommendations and assist with discharge planning when appropriate.
--- NOTE | 2024-10-18 13:16 | W.PN.UPDATE ---
Update Note
Progress Note Update
CARDIAC SURGERY ATTENDING:
I evaluated Mrs. Yadira Dsouza at her bedside this afternoon. She is very well-known to our service. I discussed her case with her primary chick sexer as well as my surgical colleague. She is status post urgent/emergent intubation earlier today after
becoming acutely tachypneic with desaturations after getting out of bed. Her FiO2 has been uptitrated to 80%, and her SPO2's are currently in the 90-92% range. Her most recent ABG is from 1239 hrs.: 7.2 3/39/114/16 0.3/-10.5/99.6. Her
postintubation chest x-ray demonstrated well-positioned ET tube with diffuse increase in interstitial opacities and increasing consolidation over the right upper and lower lung zones. A TTE was performed. Official report is pending at this time.
However, on my review there is does not appear to be significant MR despite this large echogenic mass near the posterior annulus. Although there is likely some degree of recurrent infection in this area given MSSA in BCx on 10/14, the patient's
initial operation had required extensive annular debridement in the P1/P2 region with pericardial patch of her MAC.
If her pulmonary decompensation is a result of progressive ARDS, in the absence of severe MR, I would advocate against emergent reoperation for her mitral valve pathology at this time. Her respiratory status will have to be closely monitored. If
progressive, she may require institution of VV/ECMO support.
N: Intubated/sedated on fentanyl and propofol
CV: Requiring low-dose Levophed currently at 2, sinus rhythm, reasonable blood pressure on low-dose support. Await official TTE report. Consider DONENLL. Place arterial monitoring catheter.
Any surgical intervention at this time would be of extremely high risk with a least a 50% mortality rate.
PULM: Continue ventilatory support, follow serial ABGs. Wean FiO2 as tolerated. If progressive ARDS may require VV ECMO support
GI: NPO
: Recent JAMES with creatinine 2.4 on 10/13/2024, most recent creatinine back down to 1.0. Place Adair catheter for monitoring of urine output.
HEME: Hemoglobin 9.1 (stable), platelets 142 (improved; patient had been thrombocytopenic to a trena of 57K on 10/15/2024)
ID: White blood cell count increased today to 23.4 (from 19.3, 14.4, 11.8); blood cultures from 10/16 and 10/17 with NGTD, blood cultures from 10/14/2024 with MSSA. On meropenem 500 mg IV every 6 hours, doxycycline 100 mg p.o. every 12 hours.
Currently afebrile with Tmax of 36.7. Last temp on 10/16/2024 of 38.5.
ENDO: BS 123
FEN: K 4.6, Ca 8.2
PROPH: SCDs, ETT care, currently on Eliquis, would consider holding/transition to heparin if anticoagulation felt necessary.
DISPO: Critical condition. ICU, full code. Ongoing treatment for breast cancer.
Thank you,
Kwaku Boogie M.D.
[phone]
--- NOTE | 2024-10-18 13:47 | OR.RPT ---
Operative Report
Operative Report
Right Radial Arterial catheter placement
Informed consent was obtained from patient's spouse at bedside. Patient in shock on pressor therapy and needs invasive blood pressure monitoring.
Bedside ultrasound was used to confirm patency of right radial artery. Under sterile condition area was subsequently cleaned and a drape was placed. Under direct ultrasound visualization,, radial artery was cannulated. Once blood was noted in the
chamber guidewire was advanced. Arterial catheter was subsequently advanced over the guidewire, and then guidewire was removed. Pressure tubing was subsequently attached to the catheter and arterial waveform was noted on the monitor. Subsequently
a dressing was placed.
Complications: None
Date of service: 10/18/2024
--- NOTE | 2024-10-18 13:48 | OR.RPT ---
Operative Report
Operative Report
Left IJ Central Line placement
Indication: Shock, need central access for pressor therapy, CVP monitoring.
Consent obtained from: Patient's spouse as patient sedated and mechanically ventilated, unable to consent
Time-out was performed and patient was placed in supine position, she was unable to tolerate Trendelenburg position due to desaturation. Ultrasound was used to assess patency of left IJ vein. Under sterile conditions area was cleaned with
chlorhexidine and then a full body drape was placed. 2 mL of local anesthetic, lidocaine was injected. Under real-time ultrasound guidance, long axis view, the needle was inserted and vein was punctured, once blood was aspirated, syringe was
removed and guidewire was advanced which did not meet any resistance. Subsequently needle was withdrawn and guidewire was left in place. Ultrasound was used again to confirm presence of guidewire inside the vein lumen. A small more was placed at
the skin and a dilator was advanced to about 50% of its length. Dilator was removed and central venous catheter was advanced over guidewire and subsequently guidewire was removed. All 3 ports were capped and they were easy to flush and were
withdrawing blood without any resistance. Central line was sutured to the skin and dressing was applied.
Ultrasound of the lungs was performed and good lung sliding was obtained. Patient stayed hemodynamically stable through the procedure.
Complications: None
Blood loss: 1-2 ml
Time spent: 25 min
Date of service: 10/18/2024
[2024-10-18] MEDS: LASIX 80 MG IV (14:29)
--- NOTE | 2024-10-18 15:08 | PTCARENOTE ---
CV Surgery to bedside. Requesting peña cath, a-line and central line. A-line and LIJ TLC placed by Dr Wilcox without issue. Peña placed by RN with 90cc dark yellow urine out. Plan of care discussed with CV and family. label operator planned for today.
[2024-10-18 15:11] LABS: APTT 42.4 Sec (23.4-35.0)
[2024-10-18] MEDS: PACERONE 200 MG TUBE ×2 (16:07→21:03)
[2024-10-18 16:16] LABS: Hematocrit 27.8 % (37.0-47.0); Hemoglobin 8.8 g/dL (12.0-16.0); Mean Corp Hgb Conc. 31.7 g/dL (33.0-37.0); Mean Corpuscular Volume 98.2 fL (81.0-99.0); Platelet Count 197 10^3/uL (130-400); Red Cell Dist. Width 16.4 % (11.5-14.5)
[2024-10-18] MEDS: LEVOPHED 250 IV ×2 (16:29→20:41)
--- NOTE | 2024-10-18 16:45 | W.PN.HOSP.TC ---
Today's Communication/Plan
-
Assessment / Plan
Assessment / Plan
General: Intubated on mechancial ventilator
HEENT: Normocephalic and Atraumatic
Respiratory: Crackles and mechanical vent sounds
Cardiac: Regular Rhythm and Tachycardic
GI: Soft, Nontender and Nondistended
Musculoskeletal: No Clubbing
Skin: Warm and Dry
Neuro: sedated
Shock initially secondary to septic shock in the setting of MSSA bacteremia and endocarditis now unclear as to shock is cardiogenic shock versus medication induced shock related to propofol or rapid sequence intubation agents
Back on pressor support
Continue IV cefazolin
Will require persistent blood culture negativity to determine duration of antibiotics, blood cultures from 10/16 negative thus far
Follow fever curve
Infectious disease following
Cardiology following
Acute hypoxemic respiratory failure for ICU
Cannot exclude valvular disease versus ARDS
Low lung protective volumes as cannot rule out ARDS but unlikely as blood cultures cleared 48 hours prior
Start sedatives
Daily SAT/SBT
Monitor urinary output
2d echo stat ordered
VHD
Mitral recently repoaired
?rupture/prolapsed
Check surface echo may need DONNELL
Cards consulted
Paroxysmal atrial fibrillation/flutter
Stop IV amiodarone per cardiology
Increase p.o. Amio to 200 mg 3 times daily
Add metoprolol extended release per cardiology
Continue anticoagulation with Eliquis
Monitor on telemetry
JAMES, resolved
Hyponatremia, suspected SIADH, resolved
Normocytic anemia in the setting of sepsis
Transfuse if hemoglobin less than 7
Diarrhea
C. difficile negative
Provide loperamide
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
Persistent right-sided weakness vision change and speech impairment
Continue PT/OT/speech
Breast CA
S/p bilateral mastectomies
Of current chemotherapy regimen due to hospitalization
Hypothyroidism
Continue levothyroxine
ICU
Anticipated Discharge: > 48 hours
Subjective/Interval History
-
Date of Service: October 18, 2024
Seen and examined
Acutely decompensated earlier this morning increased work of breathing hypoxic
Trialed on high flow unable to tolerate required intubation and cardiology following
Objective Data
-
Labs:
Laboratory Results
10/18/24 10/18/24 10/18/24
04:44 10:29 12:39
WBC 23.4 H
Hgb 9.1 L
Hct 27.1 L
Plt Count 142 D
APTT
HCO3 17.4 L 16.3 L
Sodium 134 L
Potassium 4.6
Chloride 110 H
Carbon Dioxide 19 L
BUN 21 H
Creatinine 1.0
Glucose 123 H
Calcium 8.2 L
10/18/24
14:42
WBC 29.4 H
Hgb 8.8 L
Hct 27.8 L
Plt Count 197 D
APTT 42.4 H
HCO3
Sodium
Potassium
Chloride
Carbon Dioxide
BUN
Creatinine
Glucose
Calcium
Vital Signs:
Vital Signs
Temp Pulse Resp BP Pulse Ox
98.8 F 105 20 74/65 98
10/18/24 16:09 10/18/24 15:00 10/18/24 15:00 10/18/24 13:30 10/18/24 15:45
I&O
10/17/24 10/18/24 10/19/24
06:59 06:59 06:59
Intake Total 1646.8 / 1646.8 956.8 / 956.8 105.0 / 105.0
Output Total 365 / 365
Balance 1646.8 / 1646.8 956.8 / 956.8 -260.0 / -260.0
--- NOTE | 2024-10-18 17:35 | PTCARENOTE ---
To cardiac solar lab technician with lab RNs.
--- NOTE | 2024-10-18 19:31 | ITS.CL.PN ---
Architectural Examiner - Procedure Note
Procedure
Procedure Note:
CARDIAC CATHETERIZATION REPORT
Date of Procedure: 10/18/2024
Referring: Dr. Chris Doran MD
Indication: Cardiogenic shock
PROCEDURE: right heart catheterization
ACCESS: 8F right internal jugular vein (sewn in place at 54 cm)
CATHETERS: 7F Clarinda-Eugenia
HEMODYNAMIC DATA - on norepinephrine @6
SBP 106/61 (mean 79) mmHg
RA 28 mmHg
RV 63/18 (EDP 26) mmHg
PA 64/42 (mean 51) mmHg
PCWP 34 mmHg
SaO2 89.0%
SvO2 39.8%
Hb 11.3 g/dL
CO/CI 3.60/2.01 L/min/m2
SVR 1133 dsc*-5
PVR 4.7 Wood units
CONCLUSIONS
1. Severely elevated biventricular filling pressures, severe pre and postcapillary pulmonary hypertension, and reduced cardiac output with normal SVR on norepinephrine at 6.
2. Lavell of 0.79 suggesting severe RV dysfunction
RECOMMENDATIONS
1. Lung protective ventilation for treatment of presumed mixed ARDS and cardiogenic pulmonary edema. If worsening hypoxic respiratory failure recalcitrant to maximal ventilatory support, patient will be considered for VV-ECMO and transfer to [place]
2. Diuresis noting filling pressures may be exaggerated in setting of positive pressure ventilation
3. Hemodynamic support with norepinephrine to achieve MAP greater than 65
4. Consideration addition of epinephrine for RV support and to target cardiac output greater than 2.0
Signed: Rick Rae MD, PhD
[2024-10-18] MEDS: VIBRAMYCIN 100 MG TUBE (20:34)
[2024-10-18] MEDS: DECADRON 10 MG IV (20:34)
[2024-10-18 21:09] LABS: Hematocrit 26.7 % (37.0-47.0); Hemoglobin 9.0 g/dL (12.0-16.0); Mean Corp Hgb Conc. 33.7 g/dL (33.0-37.0); Mean Corpuscular Volume 93.7 fL (81.0-99.0); Platelet Count 198 10^3/uL (130-400); Red Cell Dist. Width 16.2 % (11.5-14.5)
[2024-10-18 21:19] LABS: APTT 40.3 Sec (23.4-35.0); INR 3.18; PT 32.5 Sec (11.4-14.6)
[2024-10-18 21:36] LABS: Blood Urea Nitrogen 29 mg/dl (7-17); Calcium 8.3 mg/dl (8.4-10.2); Carbon Dioxide 19 mmol/L (22-30); Chloride 106 mmol/L (98-107); Estimated Creatinine Clearance 50 ml/min; Glucose 133 mg/dl (70-99); Potassium 4.2 mmol/L (3.5-5.1); Sodium 133 mmol/L (135-145); eGFR 55.76
[2024-10-18] MEDS: HEPARIN 25000 UNITS/250 ML IV (21:45)
--- NOTE | 2024-10-18 21:55 | PTCARENOTE ---
Received pt from r and d lab technician RNs. Pt opens eyes, follows commands, drowsy at times. Aflutter w/ PVCs on the monitor. [place] @ 54 cm. 2000 C.O 2.84, C.I 1.58, PAP 42/24, CVP 7. Levo gtt @ 6 mcgs, for MAP >65, Cordis @ 10 ml/hr. ETT #8 @ 24 cm. Vent
settings AC 20/400/80%/10, O2 sat 100%, lungs diminished/exp wheeze . R nare dobhoff 75cm. Adair in place, for critical I&O. SCDs in place. Fent and prop gtts (see worklist). Heparin gtt started at 900 units. Labs provided. All lines zeroed and
transduced. Mouth care provided. Family at bedside. Safe environment maintained.
[2024-10-18 22:21] LABS: B.E. -3.7 mmol/L; HCO3 20.3 mmol/L (21-28); O2 Saturation % 100.0 % (94-98); PCO2 32 mmHg (32-35); PO2 265 mmHg (83-108); Potassium 4.0 mMOL/L (3.5-5.1)
[2024-10-18 22:53] LABS: ALT (SGPT) 24 U/L (0-35); AST (SGOT) 100 U/L (14-36); Albumin 2.6 g/dl (3.5-5.0); Alkaline Phosphatase 127 U/L (38-126); Total Protein 5.7 g/dl (6.3-8.2)
[2024-10-19] VITALS (12 sets, daily range): BP systolic 86–122; BP diastolic 72–93; BMI 30.9
--- NOTE | 2024-10-19 00:56 | PTCARENOTE ---
Systems reviewed, no new changes in assessment. Gtts maintained (see worklist). 0000 C.O 2.58, C.I 1.43, PAP 38/20, CVP 3, ICU INTELLIGENCE CONSULTANT notified. CHG bath provided. at bedside. Safe environment maintained.
[2024-10-19] MEDS: MERREM 500 MG IV ×3 (03:45→19:40)
[2024-10-19] MEDS: STERILE WATER FOR INJECTION 10 ML IV ×3 (03:46→19:40)
[2024-10-19 03:55] LABS: B.E. -4.8 mmol/L; HCO3 19.0 mmol/L (21-28); O2 Saturation % 100.0 % (94-98); PCO2 30 mmHg (32-35); PO2 302 mmHg (83-108)
[2024-10-19 03:56] LABS: Hematocrit 26.8 % (37.0-47.0); Hemoglobin 9.3 g/dL (12.0-16.0); Mean Corp Hgb Conc. 34.7 g/dL (33.0-37.0); Mean Corpuscular Volume 91.5 fL (81.0-99.0); Platelet Count 223 10^3/uL (130-400); Red Cell Dist. Width 15.9 % (11.5-14.5)
[2024-10-19 03:57] LABS: Venous Blood Gas B.E. -4.2 mmol/L (-4 to +4); Venous Blood Gas O2 Sat % 100.0 %
[2024-10-19 04:09] LABS: APTT 55.3 Sec (23.4-35.0)
--- NOTE | 2024-10-19 04:19 | PTCARENOTE ---
Systems reviewed, no new changes in assessment. AM labs provided. Gtts maintained and titrated per protocol (see worklist). Safe environment maintained.
--- NOTE | 2024-10-19 04:20 | PTCARENOTE ---
Systems reviewed, no new changes in assessment. AM labs provided. Gtts maintained and titrated per protocol (see worklist). C.O 2.20, C.I 1.22, PAP 42/23. Safe environment maintained.
[2024-10-19 04:25] LABS: Blood Urea Nitrogen 33 mg/dl (7-17); Calcium 8.5 mg/dl (8.4-10.2); Carbon Dioxide 19 mmol/L (22-30); Chloride 107 mmol/L (98-107); Estimated Creatinine Clearance 45 ml/min; Glucose 180 mg/dl (70-99); Magnesium 1.6 mg/dl (1.6-2.3); Potassium 4.2 mmol/L (3.5-5.1); Sodium 135 mmol/L (135-145); eGFR 50.23
[2024-10-19] MEDS: SYNTHROID 50 MCG TUBE (05:55)
[2024-10-19] MEDS: LEVOPHED 250 IV ×2 (06:06→17:14)
[2024-10-19] MEDS: MAGNESIUM SULFATE 50 IV (06:23)
[2024-10-19] MEDS: DECADRON IV (08:01)
--- NOTE | 2024-10-19 08:05 | W.PN.UPDATE ---
Update Note
Progress Note Update
CARDIAC SURGERY ATTENDING:
Improvement overnight. RHC performed yesterday.
No indication for urgent/emergent cardiac surgical intervention.
Continue ICU management.
Will continue to follow
N: Sedated intubated on Fentanyl/Propofol - propofol currently on hold for planned sedation vacation/neuro assessment
CV: Currently on levophed @ 8. HR 120s. BP 120/80s. PAP: 40s/20s. CVP 16. CI: 1.5. - wean levophed, consider low-dose inotrope. MvO2 59.2.
P: Significant improvement on vent. Last AB/41/30/302/19/-4.8/100 @ 0335hrs. FiO2 down to 40%. Weaning PEEP. - progress towards extubation over next 1-2 day. CXR improved.
GI: NPO
: +Adair. UO 2470mL w/ diuresis, slowing this AM; last 2 hours. Creat 1.2 (from 1.1). Continue diuresis
HEME: Hgb 9.3 (stable/improved), PLT 223 (stable/improved)
ID: WBC up to 29.5 (received steroids). Afebrile. Tm 37.8. Tc 36.9. Last + BCx from 10/14: MSSA 2/2; repeat BCx from 10/16, 10/17, 10/18: NGTD. Continue MEROPENEM. ? Doxycycline D/C'd - confirm w/ ID
ENDO: BS 180 (steroid effect - follow)
FEN: K 4.2, Ca 8.5.
PROPH: ETT care, SCDs, heparin gtt
DISPO: ICU, Full code
[2024-10-19] MEDS: MIRALAX 17 GRAMS TUBE (08:13)
[2024-10-19] MEDS: KLOR-CON 20 MEQ TUBE (08:13)
[2024-10-19] MEDS: PROTONIX IV 40 MG IV (08:13)
[2024-10-19] MEDS: PACERONE 200 MG TUBE (08:14)
[2024-10-19] MEDS: NSS (PRESERVATIVE FREE) 10 ML IV (08:14)
[2024-10-19] MEDS: VIBRAMYCIN 100 MG TUBE ×2 (08:14→19:40)
--- NOTE | 2024-10-19 09:37 | W.PN.ID1 ---
Date of Service
Date of Service: October 19, 2024
Today's Communication
Continue meropenem.
Assessment / Plan
# Relapse complicated MSSA bacteremia/IE
. Blood cx x 4 MSSA
. 10/16 and onward blood cx's neg to date.
# Infective endocarditis of recent MV repair
.10/07 outpt DONNELL: mobile echogenic mass (0.74cm x 1.23cm) arising from adjacent or from annuloplasty ring MV
# Acute hypoxemic respiratory failure (onset 10/16), intubated 10/18
# Suspect RLL PNA vs pulm edema
# Cardiogenic shock
. 10/18 RHC Cardiac cath: severe RV dysfunction, pulm HTN,, reduced cardiac output, normal SVR
# fever - resolved
# leukocytosis, trending up, on steroid. C. diff neg
# Afib with RVR
# JAMES
# Allergy to PCN, cephalosporin, cipro, sulfa; tolerated cefazolin challenge on 10/14
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
. 08/10/24 s/p open radical mitral valve repair debridement of annulus, patch repair, annuloplasty with 30 mm band
. Completed IV Vancomycin (TELECOMMUNICATIONS PROJECT MANAGER penetration) through 09/21/24 (6 weeks from MV repair)
Plan:
- Continue repeat blood cx's daily
- Check sputum
- Continue meropenem to cover bacteremia and possible R side PNA.
- Continue doxycycline (d3 of 7) for atypical coverage of PNA.
- Trend temps/wbc/oxygen status/BP
- Continue ICU support.
- Prognosis guarded.
# Conditions MANAGER MEDICAL AFFAIRS
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
Cardio-embolic CVA with left vision loss
Right breast cancer status post lumpectomy, was on adjuvant chemo, last received 08/01/24
Hypertension
Hypothyroidism
Atrial fib
Anxiety
Left Parotid gland tumor excision 2024
Port placement -> dc'd 08/17
Cholecystectomy
Hysterectomy
Finger tumor radical resection 1985
Sacrocolpopexy
Chief Complaint
-: Bacteremia
Subjective / Review of Systems
at bedside. Pt currently intubated.
Vital Signs / Physical Exam
Vital Signs
Vital Signs
Temp Pulse Resp BP Pulse Ox
98.5 F 134 18 95/82 99
10/19/24 07:24 10/19/24 07:30 10/19/24 07:30 10/19/24 04:00 10/19/24 08:00
Physical Exam
Constitutional: Acutely Ill
Cardiovascular: Irregular Rate (tachycardic)
Pulmonary: Clear (anterior lungs) and Other (On vent.)
Gastrointestinal: Soft, Non Tender and Non Distended
Genito-Urinary: [place]air and Clear Urine
Extremities: Edema
Objective Data
Lab Data
Lab Results
10/19/24 03:40
10/19/24 03:40
PT 32.5 Sec (11.4-14.6) H 10/18/24 21:01
INR 3.18 10/18/24 21:01
APTT 55.3 Sec (23.4-35.0) H 10/19/24 03:40
Estimated Creat Clear 45 ml/min 10/19/24 03:40
Lactic Acid 2.2 mmol/L (0.7-2.0) H 10/19/24 03:36
Total Bilirubin 1.0 mg/dl (0.2-1.3) 10/18/24 22:11
AST 100 U/L (14-36) H 10/18/24 22:11
ALT 24 U/L (0-35) 10/18/24 22:11
Alkaline Phosphatase 127 U/L (38-126) H 10/18/24 22:11
Most recent labs reviewed.
Micro Results:
10/18/24 04:44 Blood Culture - Preliminary
Blood/Venous No Growth in 24 hours- Final report to follow
10/17/24 04:14 Blood Culture - Preliminary
Blood/Venous No Growth in 48 hours- Final report to follow
10/19/24 03:41 Blood Culture - Pending
Blood/Venous
10/16/24 02:18 Blood Culture - Preliminary
Blood/Venous No Growth in 72 hours- Final report to follow
10/14/24 10:11 Blood Culture - Final
Blood/Venous S aureus-Methicillin Sensitive
Gram Stain - Final
10/16/24 21:50 C. difficile GDH Antigen & Toxins - Final
Feces/Stool Negative for toxigenic C.difficile
10/14/24 10:11 Blood Culture - Preliminary
Blood/Venous S aureus-Methicillin Sensitive
Gram Stain - Preliminary
10/13/24 17:09 Blood Culture - Final
Blood/Venous S aureus-Methicillin Sensitive
Gram Stain - Final
10/13/24 16:07 Blood Culture - Final
Blood/Venous S aureus-Methicillin Sensitive
Gram Stain - Final
10/13/24 18:35 Urine Culture - Final
Urine NO GROWTH
10/13/24 17:09 Influenza Types A & B (DAHLIA) - Final
Nasal Swab Negative for Influenza A & B, NAAT
Negative results must be combined with clinical observations
and patient history.
Nucleic Acid Amplification test (NAAT)performed on the
[employer] platform.
10/19/24 CXR: Redemonstration of low lung volumes with diffusely increased interstitial and patchy alveolar opacities bilaterally. Alveolar consolidation within the lung bases has improved. No significant pleural effusion or pneumothorax.
10/16/24 CXR: There are new patchy airspace opacities throughout the right lung which likely represent multifocal pneumonia, less likely asymmetric edema
10/13/24 CXR: No acute cardiopulmonary process.
10/07/24 DONNELL: Adjacent or possibly arising from the ring near the posterior leaflet, there is a mobile echogenic mass (0.74cm x 1.23cm). No signficant regurgitation. Mitral valve gradient pk/mean 12/5mmHg.
Compared to the Intraop DONNELL report from 08/10/24, the finding associated with the mitral valve reported is in similar location. Measurements differ a bit (0.7x0.6cm on the prior)
--- NOTE | 2024-10-19 10:23 | PTCARENOTE ---
repeat labs drawn and sent as ordered. TF initiated
[2024-10-19 10:30] LABS: APTT 54.6 Sec (23.4-35.0)
--- NOTE | 2024-10-19 10:55 | W.PN.NEPH.PH ---
Today's Communication / Plan
-
IV Lasix 80 mg x 1
Assessment/Plan
-
64y F with PMH significant for breast cancer and recent long and complicated hospital stay who presents to ED complaining of fevers / chills and noted to be hypotensive at physician's office today. Patient was admitted to 08/02 - 08/22
secondary to sepsis - presumably related to chest wall chemo port. Patient was found to have MSSA bacteremia and was treated with IV Vancomycin through September 21. Bacteremia was persistent despite catheter removal and IV abx. Patient suffered
embolic strokes during her hospital stay with vision and speech changes. She was taken to the OR on 08/10 and underwent mitral valve repair / annuloplasty, MAZE procedure and left atrial appendage clip. Blood cultures after 08/10 were negative.
She continued on treatment with IV Vancomycin (and PO vancomycin for prophylaxis).
Patient seen in renal consultation acute kidney injury. She was previously seen by us for hyponatremia
Impression.
Acute kidney injury admitting creatinine 2.4 with baseline 0.9= hemodynamic mediated hypovolemia sepsis
Bacteremia recurrent= staph
Breast CA
Plan.
80 mg IV Lasix
Nonoliguric creatinine stable
Chest x-ray reviewed improving
Discussed with ICU team

33 minutes critical care time
-
-
Date of Service: October 19, 2024
CC / HPI / ROS
-
Chief Complaint:
Sepsis
History of Present Illness:
JAMES secondary to sepsis and hypotension
BP remains low stable
K up to 4.6 on supplementation BID
Cr normal
Review of Systems:
Nonoliguric
Intubated unable to assess
Labs
-
Labs:
WBC 29.5 10^3/uL (4.8-10.8) H 10/19/24 03:40
RBC 2.93 10^6/uL (4.20-5.40) L 10/19/24 03:40
Hgb 9.3 g/dL (12.0-16.0) L 10/19/24 03:40
Hct 26.8 % (37.0-47.0) L 10/19/24 03:40
Plt Count 223 10^3/uL (130-400) 10/19/24 03:40
eGFR 50.23 10/19/24 03:40
Phosphorus 4.4 mg/dl (2.5-4.5) 10/19/24 03:40
Mko-X-Lhgmrnukkap Pept 07759 pg/ml 10/18/24 11:13
Physical Exam
-
Vital Signs:
Vital Signs
Temp Pulse Resp BP Pulse Ox
98.5 F 133 17 122/93 98
10/19/24 07:24 10/19/24 09:30 10/19/24 09:30 10/19/24 08:00 10/19/24 10:38
[2024-10-19] MEDS: LASIX 80 MG IV (11:08)
--- NOTE | 2024-10-19 11:25 | W.PN.CD ---
Today's Communication / Plan
-
Appreciate CT Surgery/ID/Nephrology/Hospitalist care
Clear improvement but still critically ill with guarded prognosis
Given improvement we are not planning to pursue advanced circulatory support at this time
Will plan on a repeat echo Thu if doing well and sooner as needed
Continue support with inotrope
IV heparin
Will increase Amio
Echo Thursday, sooner if needed
Impression / Plan
-
64 y/o female with PSVT, HTN and BRCA on chemotherapy admitted in July 2024 with complicated MSSA sepsis/bacteremia related to port tip and [place] mitral valve endocarditis s/p radical mitral valve repair (Brian, 08/10/24) subsequently complicated by
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 Presents with staph aureus bacteremia and concern for MV vegetation.
Herpetology Teacher: Espinoza
Status has improved last approximate 18 hours
- Still Intubated but on less BP support
- CXR with diffuse infiltrates but perhaps a bit improved
- Echo with clear RV dysfunction but MV repair appeared to be holding up well => no surgical intervention of MV for now
- CT Surgery and Interventional cardiology are involved
- Agree with IV Lasix
- Critically ill
- Family updated
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
- Monitor
Severe TR, suspect will improve if RV failure and volume overload improve
Septic shock due to Staph aureus bacteremia (MSSA)
- We must assume this is recurrent mitral valve endocarditis, now on a recent repaired MV
- Post op TTEs in July and September with MV echodensity that concerned us BUT at that time pt doing well...
- So far f/u blood cultures are negative
- ID involved
Paroxysmal atrial fibrillation/typical flutter
- Rate: Fast 130s, appropriate for illness overall, will increase amio
- Rhythm: Has been paroxysmal, seems to be in it for most of past 2-3 days.
- Anticoagulation: Eliquis => IV heparin
JAMES, resolved, renal involved
Subjective: Intubated but alert
Physical Exam
Vital Signs/Labs
Vital Signs
Temp Pulse Resp BP Pulse Ox
98.5 F 133 17 122/93 98
10/19/24 07:24 10/19/24 09:30 10/19/24 09:30 10/19/24 08:00 10/19/24 10:38
10/18/24 10/19/24 10/20/24
06:59 06:59 06:59
Actual Weight 78.6 kg 76.5 kg
10/19/24 03:40
PT 32.5 Sec (11.4-14.6) H 10/18/24 21:01
INR 3.18 10/18/24 21:01
APTT 54.6 Sec (23.4-35.0) H 10/19/24 10:07
Magnesium 1.6 mg/dl (1.6-2.3) 10/19/24 03:40
10/18/24
11:13
Twd-X-Opaipbxumey Pept
Physical Exam
Cardiovascular: Pedal edema is absent and Rhythm/rate is irregular (and in 120-130s)
Respiratory: Crackles Absent (mechanically vented)
GI: Soft
Neuro/Psych: Alert (aware I was present, moved her head appropriately)
Data Reviewed
-
Date of Service: October 19, 2024
--- NOTE | 2024-10-19 11:50 | PTCARENOTE ---
Systems reviewed. No new changes. Pt has remained off sedation since am. Denies pain/sob/palpitations/nausea. Nods appropriately, Intermittently will write. at bedside and updated by physicians t/o morning. Lasix given as ordered.
Otherwise please refer to work list.
--- NOTE | 2024-10-19 13:44 | W.PN.INTV ---
Today's Communication / Plan
Recommendations
- Lower PEEP down to 5
- Serial ABG, follow-up chest x-ray in a.m.
- Start tube feeding
- Follow electrolytes, wean Levophed as tolerated
Assessment
-
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
chemotherapy. Patient had Mediport removed and mitral valve repair performed by Dr. Brian in 07/2024. Patient was treated with IV antibiotic for endocarditis. 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
related to endocarditis and had been on anticoagulation. This admission, unfortunately patient presented again with acute renal failure along with Staph aureus bacteremia, methicillin sensitive with concern for mitral valve endocarditis. DONNELL and
echocardiogram reviewed suggestive of mitral valve vegetation with clinical concern for infected mitral valve. Patient had been on broad-spectrum antibiotics. Over the last 24 to 48 hours, patient has had increasing oxygen requirement with some
dyspnea, x-ray concerning for atypical pneumonia versus pulmonary edema. She had been on mid flow and subsequently nonrebreather was applied earlier this morning. 10/18, patient noted to have worsening shortness of breath with increasing oxygen
requirement and increasing work of breathing. Parachute Inspector consult was placed emergently and on patient examination, respiratory distress was noted. Stat chest x-ray was suggestive of worsening pulmonary opacities. Patient was emergently intubated
and placed on mechanical ventilation. Also noted to have mild hypotension requiring low-dose Levophed infusion.
10/19 overview: Patient currently intubated, mechanically ventilated. Current infusions propofol, fentanyl, heparin drip as well as Levophed. Current MAP of 84 Levophed infusing at 6. Saturating 99%. Ventilator settings 400/18/40%/5. Cardiac
index 1.5, cardiac output 2.73. Right heart pressures 39/26 with a mean of 31. CVP around 11. Fluid balance, -1.8 L
#1. Acute hypoxic respiratory failure with respiratory distress (intubated 10/18)
- X-ray suggestive of pulmonary edema, patient was intubated on 10/18
- Follow-up chest x-ray improving. Diuresed well, change ventilator settings to 400/18/40%/5
- Additional Lasix 80 mg x 1 today
- Follow-up chest x-ray and ABG in AM. If continues to improve, will initiate SAT/SBT on 10/20
#2. Shock, cardiogenic shock.
- Levophed currently infusing at 6, cardiac output 2.7, cardiac index 1.5. Currently MAP is 84. Depending on clinical course will consider addition of milrinone if unable to wean Levophed
- BNP noted to be above 19,000 and serial lactate has been improving
- Echocardiogram and right heart cath showed elevated pulmonary capillary wedge pressure along with severe RV dysfunction
- Initiate tube feeding
- SAT SBT on 10/20 if continues to improve
- In view of severe RV dysfunction and improving pulmonary edema, lower PEEP down to 5 follow-up ABG
#3. Pulmonary edema
- Suspect related to underlying valvular heart disease with decompensated heart failure. Considering elevated wedge pressure and improving chest x-ray post diuresis, unlikely ARDS, will discontinue dexamethasone.
- Lung protective ventilation continued, diuresis as tolerated
- Continue mechanical ventilation, follow-up chest x-ray in a.m.
- Serial arterial blood gas, monitor input and output closely
#4. MSSA bacteremia with mitral valve endocarditis, relapsed.
- Prior history of MSSA [place] mitral valve endocarditis (felt to be related to med-port) s/p open radical mitral valve repair pair with annuloplasty in 08/17, unfortunately relapsed MSSA endocarditis 09/2024
- Infectious disease service on case, current continue current antibiotics
- Blood cultures over last 48 hours without any bacterial growth
- Continue meropenem and doxycycline per infectious disease service.
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
#5. Paroxysmal atrial flutter/fibrillation.
- Patient has been transition to oral amiodarone, will continue via feeding tube
- Hold metoprolol in view of hypotension, shock requiring pressor support
- Currently on heparin infusion, will resume Eliquis once extubated and no additional interventions planned
#6. JAMES on admission.
- Currently resolved. Hypovolemia and sepsis felt to be likely etiology. Admission creatinine was 2.4, normal now. Nephrology service is on case
- Tolerating diuresis well, received total of 120 mg IV Lasix on 10/18, will give additional 80 mg IV today
Other medical diagnosis
- Hyponatremia, improved
- History of breast cancer, had been on adjuvant chemotherapy, last received 07/2024
- Hypothyroidism
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
- Normocytic anemia
Updated patient's at bedside. Patient critically ill.
Critical Care time 48 mins -- The patient is admitted for acute critical illness for the treatment of vital organ failure and/or prevention of further life-threatening conditions. Total care includes time spent in review of history, physical exam,
medications, hemodynamic/ventilator parameters, laboratory data, imaging and discussion with house staff, pharmacy, respiratory therapy, gate cutter, and nursing.
Data:
RHC 10/19/2024: 1. Severely elevated biventricular filling pressures, severe pre and postcapillary pulmonary hypertension, and reduced cardiac output with normal SVR on norepinephrine at 6.
2. Lavell of 0.79 suggesting severe RV dysfunction.
PA pressure 64/42, mean 51. Pulmonary capillary wedge pressure of 34. PVR 4.7. RA pressure 28 mm.
CXR 09/2024: Diffuse increased interstitial opacity with some small areas of confluent airspace opacity, probably interstitial and alveolar edema. Minimal bilateral effusions.
DONNELL 09/2024: 1. Normal left ventricular size, wall thickness and systolic function. No regional wall motion abnormalities are seen.
2. Ejection fraction is 55-60% by visual assesment.
3. Adjacent or possibly arising from the ring near the posterior leaflet, there is a mobile echogenic mass (0.74cm x 1.23cm). No signficant regurgitation. Mitral valve gradient pk/mean 12/5mmHg.
4. Compared to the Intraop DONNELL report from 08/10/24, the finding associated with the mitral valve reported is in similar location. Measurements differ a bit (0.7x0.6cm on the prior), but I cannot visualize for complete comparison.
Subjective Dataa
Subjective Data
Date of Service:
Date of Service: October 19, 2024
Subjective:
Patient currently intubated, mechanically ventilated and sedated
Review of Systems
General: Unobtainable - Sedation
Objective Data
Data Reviewed
Vital Signs / I&O / Oxygen:
Vital Signs
Temp Pulse Resp BP Pulse Ox
98.7 F 134 19 122/93 99
10/19/24 11:15 10/19/24 11:40 10/19/24 11:40 10/19/24 08:00 10/19/24 11:54
Intake and Output
10/18/24 10/19/24 10/20/24
06:59 06:59 06:59
Intake Total 956.8 / 956.8 825.5 / 879.0 614.9 / 614.9
Output Total 3385 / 3415 465 / 465
Balance 956.8 / 956.8 -2559.5 / -2536.0 149.9 / 149.9
SaO2 [A/C] 99
SaO2 98
Nasal Cannula flow liters per 6
minute
Physical Exam
General: Comfortable
HEENT: Normocephalic
Cardiovascular: S1-S2 (Tachycardic)
Respiratory: Crackles
GI: Soft and Non Distended
Neurology: Other (Currently sedated)
Skin: Warm
Labs/Micro/Reports
Lab Data
10/19/24 03:40
Laboratory Results
10/18/24 10/18/24 10/18/24
14:42 21:01 22:11
PT 32.5 H
INR 3.18
APTT 42.4 H 40.3 H
pH 7.41
pCO2 32
pO2 265 H
HCO3 20.3 L
O2 Delivery Level
10/19/24 10/19/24 10/19/24
03:35 03:40 10:07
PT
INR
APTT 55.3 H 54.6 H
pH 7.41
pCO2 30 L
pO2 302 H
HCO3 19.0 L
O2 Delivery Level
Microbiology
10/19/24 11:30 Sputum Gram Stain - Preliminary
10/18/24 04:44 Blood/Venous Blood Culture - Preliminary
No Growth in 24 hours- Final report to follow
10/17/24 04:14 Blood/Venous Blood Culture - Preliminary
No Growth in 48 hours- Final report to follow
10/16/24 02:18 Blood/Venous Blood Culture - Preliminary
No Growth in 72 hours- Final report to follow
10/14/24 10:11 Blood/Venous Blood Culture - Final
S aureus-Methicillin Sensitive
10/14/24 10:11 Blood/Venous Gram Stain - Final
10/16/24 21:50 Feces/Stool C. difficile GDH Antigen & Toxins - Final
Negative for toxigenic C.difficile
--- NOTE | 2024-10-19 13:51 | W.PN.HOSP.TC ---
Today's Communication/Plan
-
Assessment / Plan
Assessment / Plan
General: Intubated on mechancial ventilator
HEENT: Normocephalic and Atraumatic
Respiratory: Crackles and mechanical vent sounds
Cardiac: Regular Rhythm and Tachycardic
GI: Soft, Nontender and Nondistended
Musculoskeletal: No Clubbing
Skin: Warm and Dry
Neuro: sedated
Shock initially secondary to septic shock in the setting of MSSA bacteremia and endocarditis now unclear as to shock is cardiogenic shock versus medication induced shock related to propofol or rapid sequence intubation agents
Back on pressor support
Continue IV cefazolin
Will require persistent blood culture negativity to determine duration of antibiotics, blood cultures from 10/16 negative thus far
Follow fever curve
Infectious disease following
Cardiology following
Acute hypoxemic respiratory failure for ICU
Cannot exclude valvular disease versus ARDS
Low lung protective volumes as cannot rule out ARDS but unlikely as blood cultures cleared 48 hours prior
Start sedatives
Daily SAT/SBT
Monitor urinary output
2d echo stat ordered
RV failure with evidence of neck pulmonary hypertension
Per cardiology will continue to monitor
Severe TR suspect improved with RV failure and volume overload improves however if clinically worsens may require VV ECMO
VHD
Mitral recently repoaired
?rupture/prolapsed
Check surface echo may need DONNELL
Cards consulted
Paroxysmal atrial fibrillation/flutter
Stop IV amiodarone per cardiology
Increase p.o. Amio to 200 mg 3 times daily
Add metoprolol extended release per cardiology
Continue anticoagulation with Eliquis
Monitor on telemetry
JAMES, resolved
Hyponatremia, suspected SIADH, resolved
Normocytic anemia in the setting of sepsis
Transfuse if hemoglobin less than 7
Diarrhea
C. difficile negative
Provide loperamide
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
Persistent right-sided weakness vision change and speech impairment
Continue PT/OT/speech
Breast CA
S/p bilateral mastectomies
Of current chemotherapy regimen due to hospitalization
Hypothyroidism
Continue levothyroxine
ICU
Anticipated Discharge: > 48 hours
Subjective/Interval History
-
Date of Service: October 19, 2024
Seen and examined. No new complaints. No acute overnight events.
Remains mechanically ventilated off sedation. Responding and following commands.
Objective Data
-
Labs:
Laboratory Results
10/19/24 10/19/24 10/19/24
03:35 03:40 10:07
WBC 29.5 H
Hgb 9.3 L
Hct 26.8 L
Plt Count 223
APTT 55.3 H 54.6 H
HCO3 19.0 L
Sodium 135
Potassium 4.2
Chloride 107
Carbon Dioxide 19 L
BUN 33 H
Creatinine 1.2 H
Glucose 180 H
Calcium 8.5
Total Bilirubin
AST
ALT
Alkaline Phosphatase
10/19/24 10/19/24
16:00 16:40
WBC
Hgb
Hct
Plt Count
APTT Pending
HCO3 Pending
Sodium Pending
Potassium Pending
Chloride Pending
Carbon Dioxide Pending
BUN Pending
Creatinine Pending
Glucose Pending
Calcium Pending
Total Bilirubin Pending
AST Pending
ALT Pending
Alkaline Phosphatase Pending
Vital Signs:
Vital Signs
Temp Pulse Resp BP Pulse Ox
98.7 F 135 18 94/73 98
10/19/24 11:15 10/19/24 13:30 10/19/24 13:30 10/19/24 12:00 10/19/24 13:30
I&O
10/18/24 10/19/24 10/20/24
06:59 06:59 06:59
Intake Total 956.8 / 956.8 825.5 / 879.0 614.9 / 614.9
Output Total 3385 / 3415 465 / 465
Balance 956.8 / 956.8 -2559.5 / -2536.0 149.9 / 149.9
[2024-10-19] MEDS: SUBLIMAZE 50 MCG IV ×2 (14:06→22:23)
[2024-10-19] MEDS: PACERONE 400 MG TUBE ×2 (15:33→21:40)
--- NOTE | 2024-10-19 16:27 | PTCARENOTE ---
Systems reviewed. No new changes. Pt tolerating tube feeding. Attempted to wean levo further without success. Dr Wilcox aware. Received call from Dr Doran for MVO2. Drawn and sent with repeat labs as ordered. Otherwise please see work list.
[2024-10-19 16:32] LABS: B.E. -3.6 mmol/L; HCO3 19.2 mmol/L (21-28); O2 Saturation % 99.6 % (94-98); PCO2 27 mmHg (32-35); PO2 142 mmHg (83-108)
[2024-10-19 16:42] LABS: APTT 70.4 Sec (23.4-35.0)
[2024-10-19 16:52] LABS: ALT (SGPT) 20 U/L (0-35); AST (SGOT) 41 U/L (14-36); Albumin 2.4 g/dl (3.5-5.0); Alkaline Phosphatase 120 U/L (38-126); Blood Urea Nitrogen 40 mg/dl (7-17); Calcium 7.9 mg/dl (8.4-10.2); Carbon Dioxide 20 mmol/L (22-30); Chloride 106 mmol/L (98-107); Estimated Creatinine Clearance 38 ml/min; Glucose 187 mg/dl (70-99); Potassium 4.0 mmol/L (3.5-5.1); Sodium 133 mmol/L (135-145); Total Protein 5.4 g/dl (6.3-8.2); eGFR 41.75
[2024-10-19] MEDS: HEPARIN 25000 UNITS/250 ML IV (17:14)
--- NOTE | 2024-10-19 17:30 | PTCARENOTE ---
Ptt remains subtherapeutic, adjusted per protocol. Repeat ptt ordered for 2300. Dr Wilcox aware labs resulted. Dr Doran also updated via tiger text
--- NOTE | 2024-10-19 20:30 | PTCARENOTE ---
Received pt from previous RN. Pt arousable to verbal stimuli, follows commands, nods head appropriately, drowsy. Atrial tachycardia on the monitor. Levo gtt @ 5 mcgs for MAP >65. [place] @ 54 cm, C.O 2.66, C.I 1.48, PAP 37/22, CVP 9 (see VS). ETT #8 @
24 cm, vent setting AC 18/400/40%/5, O2 sat 99%, lungs diminished/coarse. Jevity 1.5 at goal 35 ml/hr, 25 ml water flush through right nare dobhoff @ 75cm. Adair in place for critical I&O. SCDs in place. Heparin gtt @ 1400 units. Cordis @ 10 ml/hr.
Family at bedside. Safe environment maintained.
[2024-10-19] MEDS: NOVOLOG FLEXPEN-MODERATE RESISTANCE 3 UNITS SC (23:25)
[2024-10-19 23:38] LABS: Glucose - Point of Care 217 mg/dl (70-99)
[2024-10-19 23:41] LABS: APTT 83.3 Sec (23.4-35.0)
--- NOTE | 2024-10-19 23:47 | PTCARENOTE ---
Systems reviewed, no new changes in assessment. Levo gtt titrated per protocol (see worklist). C.O 2.93, C.I 1.63, PAP 36/21, CVP 10. CHG bath provided. at bedside. Safe environment maintained.
[2024-10-20] VITALS (13 sets, daily range): BP systolic 81–117; BP diastolic 62–85; PULSE 2–133; BMI 31.1
[2024-10-20] MEDS: MERREM 500 MG IV ×2 (03:49→11:21)
[2024-10-20] MEDS: STERILE WATER FOR INJECTION 10 ML IV ×2 (03:50→12:14)
[2024-10-20] MEDS: NOVOLOG FLEXPEN-MODERATE RESISTANCE 3 UNITS SC (05:17)
--- NOTE | 2024-10-20 05:23 | PTCARENOTE ---
Systems reviewed, no new changes in assessment. AM labs provided. Pt c/o no pain. Safe environment maintained.
[2024-10-20 05:25] LABS: B.E. -2.4 mmol/L; HCO3 20.4 mmol/L (21-28); O2 Saturation % 99.7 % (94-98); PCO2 28 mmHg (32-35); PO2 158 mmHg (83-108)
[2024-10-20 05:31] LABS: Glucose - Point of Care 225 mg/dl (70-99)
[2024-10-20 05:34] LABS: APTT 83.0 Sec (23.4-35.0)
[2024-10-20] MEDS: SYNTHROID 50 MCG TUBE (05:38)
[2024-10-20 05:40] LABS: ALT (SGPT) 19 U/L (0-35); AST (SGOT) 34 U/L (14-36); Albumin 2.5 g/dl (3.5-5.0); Alkaline Phosphatase 113 U/L (38-126); Blood Urea Nitrogen 55 mg/dl (7-17); Calcium 8.1 mg/dl (8.4-10.2); Carbon Dioxide 20 mmol/L (22-30); Chloride 107 mmol/L (98-107); Estimated Creatinine Clearance 36 ml/min; Glucose 216 mg/dl (70-99); Magnesium 2.0 mg/dl (1.6-2.3); Potassium 4.0 mmol/L (3.5-5.1); Sodium 133 mmol/L (135-145); Total Protein 5.7 g/dl (6.3-8.2); Triglycerides 191 mg/dl (10-149); eGFR 38.43
[2024-10-20 05:41] LABS: Hematocrit 28.0 % (37.0-47.0); Hemoglobin 9.7 g/dL (12.0-16.0); Mean Corp Hgb Conc. 34.6 g/dL (33.0-37.0); Mean Corpuscular Volume 90.0 fL (81.0-99.0); Platelet Count 166 10^3/uL (130-400); Red Cell Dist. Width 15.9 % (11.5-14.5)
--- NOTE | 2024-10-20 07:30 | PTCARENOTE ---
Pt rec'd in report from night RN, opens eyes, follows commands. Aflutter w/ PVCs on the monitor. [place] @ 54 cm. 07:30 C.O 3.26, C.I 1.81. Levo gtt weaned from 5 to 2 mcg/ 7.5 mls overnight, pt maintaining MAP >65, Cordis @ 10 ml/hr. ETT #8 @ 24 cm.
Vent settings AC 14/400/40/5 pt tolerating well, Dr. Wilcox at bedside, instructed RT to flip pt to pressure support for one hour and will recheck ABG with hopeful extubation if appropriate. R nare dobhoff 75cm. Tube feeds placed on hold per
Jeri at this time. Adair in place, for critical I&O. SCDs in place. Heparin infusing at 14 ml/1400 units/hr, PTT therapeutic. All lines zeroed and transduced. updated at bedside by nursing and agricultural engineering technologist. Questions answered.
[2024-10-20] MEDS: MIRALAX 17 GRAMS TUBE (08:54)
[2024-10-20] MEDS: PACERONE 400 MG TUBE ×3 (08:54→23:14)
[2024-10-20] MEDS: VIBRAMYCIN 100 MG TUBE (08:55)
[2024-10-20] MEDS: PROTONIX IV 40 MG IV (08:55)
[2024-10-20] MEDS: NSS (PRESERVATIVE FREE) 10 ML IV (08:55)
[2024-10-20 09:07] LABS: B.E. -3.0 mmol/L; HCO3 20.4 mmol/L (21-28); O2 Saturation % 99.9 % (94-98); PCO2 28 mmHg (32-35); PO2 125 mmHg (83-108)
--- NOTE | 2024-10-20 09:35 | RESPNOTE ---
pt extubated at 0930 to bipap 10/5 with 4 LPM of 02 bleed in without any difficulties, 02 sats of 97 % noted.
pt is tolerating bipap well at this time.
at bedside.
[2024-10-20 09:59] LABS: Glycohemoglobin (HgbA1c) 5.5 % (4.0-5.6)
[2024-10-20] MEDS: LEVOPHED 250 IV (10:07)
[2024-10-20] MEDS: HEPARIN 25000 UNITS/250 ML IV ×2 (10:08→23:52)
--- NOTE | 2024-10-20 10:08 | W.PN.CD ---
Today's Communication / Plan
-
improving on lower norepi dose, cont. to wean as tolerated
filling pressures low (CVP 3, PAD 15), no more diuresis and consider fluids to target CVP>5, PAD>15
repeat TTE
check MVO2 from PA port q8 to trend cardiac output
Impression / Plan
-
64 y/o female with PSVT, HTN and BRCA on chemotherapy admitted in July 2024 with complicated MSSA sepsis/bacteremia related to port tip and [place] mitral valve endocarditis s/p radical mitral valve repair (Brian, 08/10/24) subsequently complicated by
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 Presents with staph aureus bacteremia and concern for MV vegetation, hypoxic respiratory, and mixed septic cardiogenic shock. Now extubated with improving shock and
negative cultures over 48 hours on abx.
Loader Technician: Espinoza
Status has improved overnight
- Extubated on BiPAP saturating well
- MVO2 and MAP improving on lower norepi
- filling pressures this morning low (CVP 3, PAD 15) with rising lactate and JAMES, suggesting she is now dry
- Critically ill
- Family updated
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
- hemodynamics suggest improvement
- will repeat limited TTE today for RV/LV function, TV/MV analysis
- repeat MVO2 q8 hours to trend cardiac output; at this point does not seem to need inotropes, cont. norepi to maintain MAP>65
- filling pressures low (CVP 3, PAD 15), no more diuresis and consider fluids to target CVP>5, PAD>15
- daily CXR to monitor swan position
Septic shock due to Staph aureus bacteremia (MSSA)
- We must assume this is recurrent mitral valve endocarditis, now on a recent repaired MV
- Post op TTEs in July and September with MV echodensity that concerned us BUT at that time pt doing well...
- So far f/u blood cultures are negative
- ID involved, cont. abx per them
Paroxysmal atrial fibrillation/typical flutter
- Rate: Fast 130s, appropriate for illness overall, will continue amio and consider DONNELL/CV in future
- Rhythm: Has been paroxysmal, seems to be in it for most of past 2-3 days.
- Anticoagulation: Eliquis => IV heparin
JAMES,
- likely component of pre-renal given low filling pressures
- no more diuresis, consider gentle fluids
- renal involved
Note: swan moved back 3 cm given distal appearance on CXR, waveform is excellent and confirms PA placement
Physical Exam
Vital Signs/Labs
Vital Signs
Temp Pulse Resp BP Pulse Ox
37.3 C 135 19 90/66 99
10/20/24 08:00 10/20/24 08:54 10/20/24 08:00 10/20/24 08:54 10/20/24 08:00
10/19/24 10/20/24 10/21/24
06:59 06:59 06:59
Actual Weight 76.5 kg 77.1 kg
10/20/24 05:11
10/20/24 05:11
PT 32.5 Sec (11.4-14.6) H 10/18/24 21:01
INR 3.18 10/18/24 21:01
APTT 83.0 Sec (23.4-35.0) H 10/20/24 05:11
Magnesium 2.0 mg/dl (1.6-2.3) 10/20/24 05:11
Triglycerides 191 mg/dl (10-149) H 10/20/24 05:11
10/18/24
11:13
Cje-D-Bvrihuvzecf Pept 82055
Physical Exam
Constitutional: Comfortable
Cardiovascular: Other (tachycardic and regular, warm extremities)
Respiratory: Other (comfortable on BiPAP)
Neuro/Psych: Other (responds to simple commands)
Data Reviewed
-
Date of Service: October 20, 2024
Medical Decision Making: Reviewed Test Results
EKG: Tracing Personally Visualized and interpreted
Echo: Tracing Personally Visualized and interpreted
X-Ray/CT/US/MRI/NUC/PET: Image Personally Visualized and interpreted
Labs: Labs Reviewed by me
--- NOTE | 2024-10-20 10:47 | W.PN.NEPH.PH ---
Today's Communication / Plan
-
Lasix 80 mg IV as needed
Assessment/Plan
-
64y F with PMH significant for breast cancer and recent long and complicated hospital stay who presents to ED complaining of fevers / chills and noted to be hypotensive at physician's office today. Patient was admitted to 08/02 - 08/22
secondary to sepsis - presumably related to chest wall chemo port. Patient was found to have MSSA bacteremia and was treated with IV Vancomycin through September 21. Bacteremia was persistent despite catheter removal and IV abx. Patient suffered
embolic strokes during her hospital stay with vision and speech changes. She was taken to the OR on 08/10 and underwent mitral valve repair / annuloplasty, MAZE procedure and left atrial appendage clip. Blood cultures after 08/10 were negative.
She continued on treatment with IV Vancomycin (and PO vancomycin for prophylaxis).
Patient seen in renal consultation acute kidney injury. She was previously seen by us for hyponatremia
Impression.
Acute kidney injury admitting creatinine 2.4 with baseline 0.9= hemodynamic mediated hypovolemia sepsis
Bacteremia recurrent= staph
Breast CA
Plan.
80 mg IV Lasix given yesterday she is now extubated
Chest x-ray reviewed improving
Will be okay with diuretics again today as her creatinine is plateauing slightly higher though from yesterday at 1.5
She is currently on BiPAP with some sedation
Her was at the bedside discussed prognosis which is guarded
Continue pressor support

33 minutes critical care time
-
-
Date of Service: October 20, 2024
CC / HPI / ROS
-
Chief Complaint:
Sepsis
History of Present Illness:
JAMES secondary to sepsis and hypotension
Creatinine plateaued
Review of Systems:
Nonoliguric
Extubated on BiPAP lethargic
Labs
-
Labs:
WBC 29.5 10^3/uL (4.8-10.8) H 10/20/24 05:11
RBC 3.11 10^6/uL (4.20-5.40) L 10/20/24 05:11
Hgb 9.7 g/dL (12.0-16.0) L 10/20/24 05:11
Hct 28.0 % (37.0-47.0) L 10/20/24 05:11
Plt Count 166 10^3/uL (130-400) D 10/20/24 05:11
Sodium 133 mmol/L (135-145) L 10/20/24 05:11
Potassium 4.0 mmol/L (3.5-5.1) 10/20/24 05:11
Chloride 107 mmol/L (98-107) 10/20/24 05:11
Carbon Dioxide 20 mmol/L (22-30) L 10/20/24 05:11
BUN 55 mg/dl (7-17) H 10/20/24 05:11
Creatinine 1.5 mg/dL (0.6-1.0) H 10/20/24 05:11
eGFR 38.43 10/20/24 05:11
Glucose 216 mg/dl (70-99) H 10/20/24 05:11
Calcium 8.1 mg/dl (8.4-10.2) L 10/20/24 05:11
Phosphorus 4.4 mg/dl (2.5-4.5) 10/19/24 03:40
Vyk-W-Wrdvrupogsr Pept 06108 pg/ml 10/18/24 11:13
Albumin 2.5 g/dl (3.5-5.0) L 10/20/24 05:11
Physical Exam
-
Vital Signs:
Vital Signs
Temp Pulse Resp BP Pulse Ox
99.1 F 135 18 87/69 98
10/20/24 08:00 10/20/24 10:30 10/20/24 10:30 10/20/24 10:00 10/20/24 10:30
--- NOTE | 2024-10-20 10:51 | PTCARENOTE ---
Pt was extubated at 9:30 to bipap 10/[address] Wilcox. Plan to remain on bipap for 2 hours then take 2 hour break. Levophed was weaned off at 08:55 for MAP of 78 (see worklist), but Dr. Rae in room at 09:35 and requesting levo be resumed
at previous rate due to adjustment of height of bed/re-leveling of transducer. Dr. Rae adjusted swan to [address] Sutton, ok to space out shooting numbers to Q6 hours. Pt remains calm and cooperative, tolerating bipap mask well.
remains at bedside. Son on phone with , questions answered by RN.
[2024-10-20 12:05] LABS: Glucose - Point of Care 173 mg/dl (70-99)
[2024-10-20] MEDS: NOVOLOG FLEXPEN-MODERATE RESISTANCE 1 UNITS SC ×2 (12:14→23:54)
--- NOTE | 2024-10-20 12:31 | W.PN.ID1 ---
Date of Service
Date of Service: October 20, 2024
Today's Communication
DC pee/doxy. Resume cefazolin.
Assessment / Plan
# Relapse complicated MSSA bacteremia/IE
. Blood cx x 4 MSSA
. 10/16 and onward blood cx's neg to date.
# Infective endocarditis of recent MV repair
.10/07 outpt DONNELL: mobile echogenic mass (0.74cm x 1.23cm) arising from adjacent or from annuloplasty ring MV
# Acute hypoxemic respiratory failure (onset 10/16), intubated 10/18
# VDRF due to pulm edema
# Cardiogenic shock
. 10/18 [facility] Cardiac cath: severe RV dysfunction, pulm HTN,, reduced cardiac output, normal SVR
# fever - resolved
# leukocytosis, trending up, on steroid. C. diff neg
# Afib with RVR
# JAMES
# Allergy to PCN, cephalosporin, cipro, sulfa; tolerated cefazolin challenge on 10/14
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
. 08/10/24 s/p open radical mitral valve repair debridement of annulus, patch repair, annuloplasty with 30 mm band
. Completed IV Vancomycin (ENGINEERING PATTERNMAKER penetration) through 09/21/24 (6 weeks from MV repair)
Plan:
- Sputum cx neg.
- DC meropenem and doxycycline as PNA ruled out.
- Resume cefazolin 2g IV q8h x 6 weeks then chronic suppressive therapy
- Trend wbc
- Continue ICU support.
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
Cardio-embolic CVA with left vision loss
Right breast cancer status post lumpectomy, was on adjuvant chemo, last received 08/01/24
Hypertension
Hypothyroidism
Atrial fib
Anxiety
Left Parotid gland tumor excision 2024
Port placement -> dc'd 08/17
Cholecystectomy
Hysterectomy
Finger tumor radical resection 1985
Sacrocolpopexy
Chief Complaint
-: Bacteremia
Subjective / Review of Systems
Weaning from vent.
Vital Signs / Physical Exam
Vital Signs
Vital Signs
Temp Pulse Resp BP Pulse Ox
99.1 F 135 20 87/69 97
10/20/24 08:00 10/20/24 11:20 10/20/24 11:20 10/20/24 10:00 10/20/24 11:20
Physical Exam
Constitutional: Acutely Ill
Cardiovascular: S1/S2 (tachycardic)
Pulmonary: Clear (anteriorly)
Gastrointestinal: Soft, Non Tender and Non Distended
Extremities: Edema
Skin: Negative Rash
Objective Data
Lab Data
Lab Results
10/20/24 05:11
10/20/24 05:11
PT 32.5 Sec (11.4-14.6) H 10/18/24 21:01
INR 3.18 10/18/24 21:01
APTT 83.0 Sec (23.4-35.0) H 10/20/24 05:11
Estimated Creat Clear 36 ml/min 10/20/24 05:11
Lactic Acid 1.9 mmol/L (0.7-2.0) 10/20/24 11:15
Total Bilirubin 0.8 mg/dl (0.2-1.3) 10/20/24 05:11
AST 34 U/L (14-36) 10/20/24 05:11
ALT 19 U/L (0-35) 10/20/24 05:11
Alkaline Phosphatase 113 U/L (38-126) 10/20/24 05:11
Most recent labs reviewed.
Micro Results:
10/19/24 11:30 Respiratory Culture - Preliminary
Sputum NO GROWTH
Gram Stain - Preliminary
10/20/24 05:11 Blood Culture - Pending
Blood/Venous
10/18/24 04:44 Blood Culture - Preliminary
Blood/Venous No Growth in 48 hours- Final report to follow
10/17/24 04:14 Blood Culture - Preliminary
Blood/Venous No Growth in 72 hours- Final report to follow
10/19/24 03:41 Blood Culture - Preliminary
Blood/Venous No Growth in 24 hours- Final report to follow
10/16/24 02:18 Blood Culture - Preliminary
Blood/Venous No Growth in 4 days- Final report to follow
10/14/24 10:11 Blood Culture - Final
Blood/Venous S aureus-Methicillin Sensitive
Gram Stain - Final
10/16/24 21:50 C. difficile GDH Antigen & Toxins - Final
Feces/Stool Negative for toxigenic C.difficile
10/14/24 10:11 Blood Culture - Preliminary
Blood/Venous S aureus-Methicillin Sensitive
Gram Stain - Preliminary
10/13/24 17:09 Blood Culture - Final
Blood/Venous S aureus-Methicillin Sensitive
Gram Stain - Final
10/13/24 16:07 Blood Culture - Final
Blood/Venous S aureus-Methicillin Sensitive
Gram Stain - Final
10/13/24 18:35 Urine Culture - Final
Urine NO GROWTH
10/13/24 17:09 Influenza Types A & B (DAHLIA) - Final
Nasal Swab Negative for Influenza A & B, NAAT
Negative results must be combined with clinical observations
and patient history.
Nucleic Acid Amplification test (NAAT)performed on the
[employer] platform.
10/19/24 CXR: Redemonstration of low lung volumes with diffusely increased interstitial and patchy alveolar opacities bilaterally. Alveolar consolidation within the lung bases has improved. No significant pleural effusion or pneumothorax.
10/16/24 CXR: There are new patchy airspace opacities throughout the right lung which likely represent multifocal pneumonia, less likely asymmetric edema
10/13/24 CXR: No acute cardiopulmonary process.
10/07/24 DONNELL: Adjacent or possibly arising from the ring near the posterior leaflet, there is a mobile echogenic mass (0.74cm x 1.23cm). No signficant regurgitation. Mitral valve gradient pk/mean 12/5mmHg.
Compared to the Intraop DONNELL report from 08/10/24, the finding associated with the mitral valve reported is in similar location. Measurements differ a bit (0.7x0.6cm on the prior)
Care Review
Plan reviewed with: Physician (Dr. Wilcox)
--- NOTE | 2024-10-20 12:40 | PTCARENOTE ---
Echo completed at bedside. Pt off bipap and placed on nasal cannula 4L by RT, tolerating well, sa02 95%. Oral care provided, per Dr. Wilcox -[facility] ice chips ok. Pt speaking softly, no complaints at this time other than mild sore throat and generalized
weakness.
--- NOTE | 2024-10-20 13:35 | W.PN.INTV ---
Today's Communication / Plan
Recommendations
- Extubated to BiPAP, will continue BiPAP for 2 hours followed by 4-hour break and then again resume tonight, if continues to do well for 24 hours likely can stop BiPAP therapy
- Follow-up chest x-ray, ABG and electrolytes in a.m.
- Evaluate to resume p.o.
- If no surgical intervention planned after follow-up echocardiogram, heparin will be transition to Eliquis
Assessment
-
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
chemotherapy. Patient had Mediport removed and mitral valve repair performed by Dr. Brian in 07/2024. Patient was treated with IV antibiotic for endocarditis. 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
related to endocarditis and had been on anticoagulation. This admission, unfortunately patient presented again with acute renal failure along with Staph aureus bacteremia, methicillin sensitive with concern for mitral valve endocarditis. DONNELL and
echocardiogram reviewed suggestive of mitral valve vegetation with clinical concern for infected mitral valve. Patient had been on broad-spectrum antibiotics. Over the last 24 to 48 hours, patient has had increasing oxygen requirement with some
dyspnea, x-ray concerning for atypical pneumonia versus pulmonary edema. She had been on mid flow and subsequently nonrebreather was applied earlier this morning. 10/18, patient noted to have worsening shortness of breath with increasing oxygen
requirement and increasing work of breathing. Distribution Operations Supervisor consult was placed emergently and on patient examination, respiratory distress was noted. Stat chest x-ray was suggestive of worsening pulmonary opacities. Patient was emergently intubated
and placed on mechanical ventilation. Also noted to have mild hypotension requiring low-dose Levophed infusion.
10/20 overview: Patient successfully extubated to BiPAP. Off sedation, current infusions Heparin. Off levophed. MAP 68. Creatinine slightly increased to 1.5. Fluid balance +993 mL.
#1. Acute hypoxic respiratory failure with respiratory distress (intubated 10/18-extubated 10/20)
- X-ray suggestive of pulmonary edema, patient was intubated on 10/18
- Follow-up chest x-ray improving.
- Extubated to BiPAP, 10/20
#2. Shock, cardiogenic shock.
- Levophed weaned off, [place] in place. Cardiac index continues to be below 2
- BNP noted to be above 19,000 and serial lactate has been improving
- Echocardiogram and right heart cath showed elevated pulmonary capillary wedge pressure along with severe RV dysfunction
- Has been on tube feeding, will transition to oral feeding now that she is extubated
#3. Pulmonary edema
- Suspect related to underlying valvular heart disease with decompensated heart failure. Considering elevated wedge pressure and improving chest x-ray post diuresis, unlikely ARDS, discontinued dexamethasone. No significant ET tube secretions
noted, infiltrates more likely volume overload rather than consolidation.
- Lung protective ventilation was pursued, diuresed well. Extubated to BiPAP on 10/20
#4. MSSA bacteremia with mitral valve endocarditis, relapsed.
- Prior history of MSSA ruby mitral valve endocarditis (felt to be related to med-port) s/p open radical mitral valve repair pair with annuloplasty in 08/17, unfortunately relapsed MSSA endocarditis 09/2024
- Infectious disease service on case, antibiotic coverage was broadened for concern of pneumonia, now transition back to cefazolin.
- Blood cultures over last 48 hours without any bacterial growth
- Prior history of infective endocarditis with cardiac embolic CVA with left side vision loss.
#5. Paroxysmal atrial flutter/fibrillation.
- Patient has been on p.o. amiodarone
- Holding metoprolol in view of hypotension
- Currently on heparin infusion
- Await follow-up echo, if no intervention planned, will transition to Eliquis
#6. JAMES on admission.
- After initial improvement, creatinine slightly increased today.
- Hold additional diuresis today, follow-up labs closely, keep MAP above 65
Other medical diagnosis
- Hyponatremia, improved
- History of breast cancer, had been on adjuvant chemotherapy, last received 07/2024
- Hypothyroidism
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
- Normocytic anemia
Updated patient's at bedside. Patient critically ill.
Discussed with cardiology service, plan for follow-up limited echo
Critical Care time 45 mins -- The patient is admitted for acute critical illness for the treatment of vital organ failure and/or prevention of further life-threatening conditions. Total care includes time spent in review of history, physical exam,
medications, hemodynamic/ventilator parameters, laboratory data, imaging and discussion with house staff, pharmacy, respiratory therapy, almond roaster, and nursing.
Data:
[facility] 10/19/2024: 1. Severely elevated biventricular filling pressures, severe pre and postcapillary pulmonary hypertension, and reduced cardiac output with normal SVR on norepinephrine at 6.
2. Lavell of 0.79 suggesting severe RV dysfunction.
PA pressure 64/42, mean 51. Pulmonary capillary wedge pressure of 34. PVR 4.7. RA pressure 28 mm.
CXR 09/2024: Diffuse increased interstitial opacity with some small areas of confluent airspace opacity, probably interstitial and alveolar edema. Minimal bilateral effusions.
DONNELL 09/2024: 1. Normal left ventricular size, wall thickness and systolic function. No regional wall motion abnormalities are seen.
2. Ejection fraction is 55-60% by visual assesment.
3. Adjacent or possibly arising from the ring near the posterior leaflet, there is a mobile echogenic mass (0.74cm x 1.23cm). No signficant regurgitation. Mitral valve gradient pk/mean 12/5mmHg.
4. Compared to the Intraop DONNELL report from 08/10/24, the finding associated with the mitral valve reported is in similar location. Measurements differ a bit (0.7x0.6cm on the prior), but I cannot visualize for complete comparison.
Subjective Dataa
Subjective Data
Date of Service:
Date of Service: October 20, 2024
Subjective:
Patient comfortably lying in bed, in no acute distress.
Review of Systems
Genitourinary: Other (All 14 systems reviewed and negative except as stated above in the history of present illness.)
Objective Data
Data Reviewed
Vital Signs / I&O / Oxygen:
Vital Signs
Temp Pulse Resp BP Pulse Ox
99.1 F 135 20 93/70 94
10/20/24 12:00 10/20/24 11:20 10/20/24 11:20 10/20/24 12:00 10/20/24 13:13
Intake and Output
10/19/24 10/20/24 10/21/24
06:59 06:59 06:59
Intake Total 825.5 / 879.0 2393.1 / 2484.6 520.5 / 520.5
Output Total 3385 / 3415 1230 / 1250 208 / 208
Balance -2559.5 / -2536.0 1163.1 / 1234.6 312.5 / 312.5
SaO2 [CPAP/PSV] 99
SaO2 [A/C] 98
SaO2 94
Nasal Cannula flow liters per 4
minute
Physical Exam
General: Comfortable
HEENT: Normocephalic
Cardiovascular: S1-S2 (Heart rate better)
Respiratory: Crackles (Resolving)
GI: Soft and Non Distended
Neurology: Awake, Alert and Oriented
Skin: Warm
Labs/Micro/Reports
Lab Data
10/20/24 05:11
10/20/24 05:11
Laboratory Results
10/19/24 10/19/24 10/20/24
16:10 23:23 05:11
APTT 70.4 H 83.3 H 83.0 H
pH 7.46 H 7.47 H
pCO2 27 L 28 L
pO2 142 H 158 H
HCO3 19.2 L 20.4 L
O2 Delivery Level
10/20/24
08:49
APTT
pH 7.47 H
pCO2 28 L
pO2 125 H
HCO3 20.4 L
O2 Delivery Level
Microbiology
10/19/24 11:30 Sputum Respiratory Culture - Preliminary
NO GROWTH
10/19/24 11:30 Sputum Gram Stain - Preliminary
10/18/24 04:44 Blood/Venous Blood Culture - Preliminary
No Growth in 48 hours- Final report to follow
10/17/24 04:14 Blood/Venous Blood Culture - Preliminary
No Growth in 72 hours- Final report to follow
10/19/24 03:41 Blood/Venous Blood Culture - Preliminary
No Growth in 24 hours- Final report to follow
10/16/24 02:18 Blood/Venous Blood Culture - Preliminary
No Growth in 4 days- Final report to follow
10/14/24 10:11 Blood/Venous Blood Culture - Final
S aureus-Methicillin Sensitive
10/14/24 10:11 Blood/Venous Gram Stain - Final
--- NOTE | 2024-10-20 13:48 | CM ---
Extubated to BIPAP. IV/AB. Discharge POC: Therapy recommended SNF. Medicare [employer] list previously given to patient. Will obtain preferences when off BIPAP.
[2024-10-20] MEDS: ANCEF 10 IV ×2 (13:56→23:14)
--- NOTE | 2024-10-20 15:21 | PTCARENOTE ---
Pt incont second bowel movement today, requesting to go back on bipap for turning and cleaning. Placed back on bipap at 15:00, full bath and linen changed performed. Bowels looser than earlier. Pt repositioned and resting quietly at this time, no
complaints.
--- NOTE | 2024-10-20 15:33 | W.PN.HOSP.TC ---
Today's Communication/Plan
-
Assessment / Plan
Assessment / Plan
General: On BiPAP following commands
HEENT: Normocephalic and Atraumatic
Respiratory: Crackles
Cardiac: Regular Rhythm and Tachycardic
GI: Soft, Nontender and Nondistended
Musculoskeletal: No Clubbing
Skin: Warm and Dry
Neuro: sedated
Shock initially secondary to septic shock in the setting of MSSA bacteremia and endocarditis now unclear as to shock is cardiogenic shock versus medication induced shock related to propofol or rapid sequence intubation agents
Back on pressor support
Continue IV cefazolin
Will require persistent blood culture negativity to determine duration of antibiotics, blood cultures from 10/16 negative thus far
Follow fever curve
Infectious disease following
Cardiology following
Acute hypoxemic respiratory failure for ICU
Extubated to BiPAP
Repeat chest x-ray ABG in the a.m.
RV failure with evidence of neck pulmonary hypertension
Per cardiology will continue to monitor
Severe TR suspect improved with RV failure and volume overload improves however if clinically worsens may require VV ECMO
VHD
Mitral recently repoaired
?rupture/prolapsed
Check surface echo may need DONNELL
Cards consulted
Paroxysmal atrial fibrillation/flutter
Stop IV amiodarone per cardiology
Increase p.o. Amio to 200 mg 3 times daily
Add metoprolol extended release per cardiology
Continue anticoagulation with heparin drip with plan to transition to Eliquis once able
Monitor on telemetry
JAMES, resolved
Hyponatremia, suspected SIADH, resolved
Normocytic anemia in the setting of sepsis
Transfuse if hemoglobin less than 7
Diarrhea
C. difficile negative
Provide loperamide
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
Persistent right-sided weakness vision change and speech impairment
Continue PT/OT/speech
Breast CA
S/p bilateral mastectomies
Of current chemotherapy regimen due to hospitalization
Hypothyroidism
Continue levothyroxine
ICU
Anticipated Discharge: > 48 hours
Subjective/Interval History
-
Date of Service: October 20, 2024
Seen and examined. No new complaints. No acute overnight events.
Objective Data
-
Labs:
Laboratory Results
10/20/24 10/20/24
05:11 08:49
WBC 29.5 H
Hgb 9.7 L
Hct 28.0 L
Plt Count 166 D
APTT 83.0 H
HCO3 20.4 L 20.4 L
Sodium 133 L
Potassium 4.0
Chloride 107
Carbon Dioxide 20 L
BUN 55 H
Creatinine 1.5 H
Glucose 216 H
Calcium 8.1 L
Total Bilirubin 0.8
AST 34
ALT 19
Alkaline Phosphatase 113
Vital Signs:
Vital Signs
Temp Pulse Resp BP Pulse Ox
99.1 F 134 23 96/66 86
10/20/24 12:00 10/20/24 15:13 10/20/24 15:00 10/20/24 15:13 10/20/24 15:00
I&O
10/19/24 10/20/24 10/21/24
06:59 06:59 06:59
Intake Total 825.5 / 879.0 2393.1 / 2484.6 823.5 / 823.5
Output Total 3385 / 3415 1230 / 1250 263 / 263
Balance -2559.5 / -2536.0 1163.1 / 1234.6 560.5 / 560.5
--- NOTE | 2024-10-20 16:00 | PTCARENOTE ---
Pt remains comfortable on bipap, sa02 95%. C.O 2.9, C.I 1.61, PAP 35/21, CVP 8 at 15:43. Dr. Boogie in room to see patient.
[2024-10-20 17:46] LABS: Glucose - Point of Care 144 mg/dl (70-99)
[2024-10-20] MEDS: NOVOLOG FLEXPEN-MODERATE RESISTANCE SC (17:51)
--- NOTE | 2024-10-20 21:00 | PTCARENOTE ---
Pt O2 demand increasing. Pt desatting to 88% pulse ox. O2 increased to 6L via NC.
[2024-10-20] MEDS: ATIVAN 0.5 MG TUBE (23:17)
--- NOTE | 2024-10-20 23:30 | PTCARENOTE ---
Pt placed on bipap 10/5 w/ 8L of O2. Pt satting at 98% pulse ox.
[2024-10-20 23:31] LABS: Glucose - Point of Care 151 mg/dl (70-99)
[2024-10-21] VITALS (26 sets, daily range): BP systolic 81–104; BP diastolic 61–81; PULSE 2–132; O2SAT 94; BMI 31.5; BMI 31.7
[2024-10-21 04:36] LABS: B.E. -1.3 mmol/L; HCO3 21.8 mmol/L (21-28); O2 Saturation % 97.9 % (94-98); PCO2 30 mmHg (32-35); PO2 79 mmHg (83-108)
[2024-10-21 04:39] LABS: Hematocrit 25.3 % (37.0-47.0); Hemoglobin 8.4 g/dL (12.0-16.0); Mean Corp Hgb Conc. 33.2 g/dL (33.0-37.0); Mean Corpuscular Volume 91.3 fL (81.0-99.0); O2 Therapy O2; Platelet Count 159 10^3/uL (130-400); Red Cell Dist. Width 16.0 % (11.5-14.5)
[2024-10-21 04:53] LABS: APTT 97.4 Sec (23.4-35.0)
--- NOTE | 2024-10-21 05:00 | PTCARENOTE ---
Pt tolerating Bipap settings and resting comforably satting at 98%.
[2024-10-21] MEDS: NOVOLOG FLEXPEN-MODERATE RESISTANCE SC ×2 (05:26→11:31)
[2024-10-21 05:27] LABS: Glucose - Point of Care 128 mg/dl (70-99)
[2024-10-21] MEDS: SYNTHROID 50 MCG TUBE (05:36)
[2024-10-21] MEDS: ANCEF 10 IV ×3 (05:36→22:57)
[2024-10-21 06:07] LABS: ALT (SGPT) 18 U/L (0-35); AST (SGOT) 38 U/L (14-36); Albumin 2.3 g/dl (3.5-5.0); Alkaline Phosphatase 102 U/L (38-126); Blood Urea Nitrogen 54 mg/dl (7-17); Calcium 8.0 mg/dl (8.4-10.2); Carbon Dioxide 23 mmol/L (22-30); Chloride 108 mmol/L (98-107); Estimated Creatinine Clearance 45 ml/min; Glucose 122 mg/dl (70-99); Magnesium 2.0 mg/dl (1.6-2.3); Potassium 3.8 mmol/L (3.5-5.1); Sodium 135 mmol/L (135-145); Total Protein 5.3 g/dl (6.3-8.2); eGFR 50.23
[2024-10-21 06:49] LABS: Absolute Neutrophils -Man Diff 32.1 10^3/uL (1.4-6.5); Normal RBC Morphology No; Platelets Checked Yes
[2024-10-21 06:50] LABS: Anisocytosis 1+; Total Cells Counted 100
--- NOTE | 2024-10-21 07:09 | W.PN.INTV ---
Addendum entered and electronically signed by Deana Tom DO 10/21/24 16:58:
Transfer to IMU given possible low dose levophed titration
Will sign off at this time, please call with questions
Original Note:
Today's Communication / Plan
Recommendations
Doing well post extubation, can resume BIPAP nightly and PRN
IV abx per team
Add midodrine, wean off pressors as able
PO lasix per team, will need eventual diuresis
Speech eval for diet advancement
PT/OT
If doing well, can transfer to floors later today
Assessment
-
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
chemotherapy. Patient had Mediport removed and mitral valve repair performed by Dr. Brian in 07/2024. Patient was treated with IV antibiotic for endocarditis. 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
related to endocarditis and had been on anticoagulation. This admission, unfortunately patient presented again with acute renal failure along with Staph aureus bacteremia, methicillin sensitive with concern for mitral valve endocarditis. DONNELL and
echocardiogram reviewed suggestive of mitral valve vegetation with clinical concern for infected mitral valve. Patient had been on broad-spectrum antibiotics. Over the last 24 to 48 hours, patient has had increasing oxygen requirement with some
dyspnea, x-ray concerning for atypical pneumonia versus pulmonary edema. She had been on mid flow and subsequently nonrebreather was applied earlier this morning. 10/18, patient noted to have worsening shortness of breath with increasing oxygen
requirement and increasing work of breathing. Burial Vault Deliverer And Installer consult was placed emergently and on patient examination, respiratory distress was noted. Stat chest x-ray was suggestive of worsening pulmonary opacities. Patient was emergently intubated
and placed on mechanical ventilation. Also noted to have mild hypotension requiring low-dose Levophed infusion.
Acute hypoxic respiratory failure with respiratory distress (intubated 10/18-extubated 10/20)
Shock, cardiogenic shock.
Pulmonary edema
MSSA bacteremia with mitral valve endocarditis, relapsed
JAMES
Leukocytosis
Hyponatremia, improved
Other medical diagnosis
Paroxysmal atrial flutter/fibrillation/SVT
Mild mitral regurgitation
History of breast cancer, had been on adjuvant chemotherapy, last received 07/2024
Hypothyroidism
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
Normocytic anemia
Anxiety
Essential (primary) hypertension
Hypercholesteremia
Obesity
Plan
Currently extubated and off sedation
Pain control PRN
Rass goal 0
Shock, cardiogenic shock-- Levophed weaned off, [place] in place. Cardiac index continues to be below 2
BNP noted to be above 19,000 and serial lactate has been improving
Echocardiogram and right heart cath showed elevated pulmonary capillary wedge pressure along with severe RV dysfunction
Has been on tube feeding, will transition to oral feeding now that she is extubated
Pulmonary edema suspect related to underlying valvular heart disease with decompensated heart failure. Considering elevated wedge pressure and improving chest x-ray post diuresis, unlikely ARDS, discontinued dexamethasone. No significant ET tube
secretions noted, infiltrates more likely volume overload rather than consolidation.
Paroxysmal atrial flutter/fibrillation-- Patient has been on p.o. amiodarone. Holding metoprolol in view of hypotension
Currently on heparin infusion. Await follow-up echo, if no intervention planned, will transition to Eliquis
Acute hypoxic respiratory failure with respiratory distress (intubated 10/18-extubated 10/20)
X-ray suggestive of pulmonary edema, patient was intubated on 10/18
Follow-up chest x-ray improving.
Extubated to BiPAP, 10/20--Can change BIPAP to nightly/PRN use
NPO status, speech eval
Advance diet as tolerated
Aspiraiton precautions
MSSA bacteremia with mitral valve endocarditis, relapsed.
Prior history of MSSA [place] mitral valve endocarditis (felt to be related to med-port) s/p open radical mitral valve repair pair with annuloplasty in 08/17
Infectious disease service on case, antibiotic coverage was broadened for concern of pneumonia, now transition back to cefazolin.
Blood cultures over last 48 hours without any bacterial growth
Prior history of infective endocarditis with cardiac embolic CVA with left side vision loss.
JAMES on admission.
After initial improvement, creatinine slightly increased today.
Hold additional diuresis today, follow-up labs closely, keep MAP above 65
Follow I/Os
Creatinine slightly increased to 1.5. Fluid balance +993 mL.
CBC stable, no signs of bleeding or coagulopathy.
Chronic anemia noted, Hb 8-10
DVT prophylaxis as assessed based on risk, including mechanical SCDs
Can transfuse if indicated for Hb <7, plt < 10
INR 3.18
No prior h/o diabetes
Monitor accuchecks PRN/SS coverage if needed
H/o hypothyroidism, can continue on home synthroid dose
Updated patient's at bedside.
Will follow
Data:
RHC 10/19/2024: 1. Severely elevated biventricular filling pressures, severe pre and postcapillary pulmonary hypertension, and reduced cardiac output with normal SVR on norepinephrine at 6.
2. Lavell of 0.79 suggesting severe RV dysfunction.
PA pressure 64/42, mean 51. Pulmonary capillary wedge pressure of 34. PVR 4.7. RA pressure 28 mm.
CXR 09/2024: Diffuse increased interstitial opacity with some small areas of confluent airspace opacity, probably interstitial and alveolar edema. Minimal bilateral effusions.
DONNELL 09/2024: 1. Normal left ventricular size, wall thickness and systolic function. No regional wall motion abnormalities are seen. 2. Ejection fraction is 55-60% by visual assessment.
3. Adjacent or possibly arising from the ring near the posterior leaflet, there is a mobile echogenic mass (0.74cm x 1.23cm). No significant regurgitation. Mitral valve gradient pk/mean 12/5mmHg.
4. Compared to the Intraop DONNELL report from 08/10/24, the finding associated with the mitral valve reported is in similar location. Measurements differ a bit (0.7x0.6cm on the prior), but I cannot visualize for complete comparison.
Critical Care time 35 mins -- The patient is admitted for acute critical illness for the treatment of vital organ failure and/or prevention of further life-threatening conditions. Total care includes time spent in review of history, physical exam,
medications, hemodynamic/ventilator parameters, laboratory data, imaging and discussion with house staff, pharmacy, respiratory therapy, commercial sales director, and nursing.
Subjective Dataa
Subjective Data
Date of Service:
Date of Service: October 21, 2024
Chief Complaint: Burial Vault Deliverer And Installer Follow Up
Subjective:
Extubated and doing well, now on BIPAP at night
On low dose pressor
Objective Data
Data Reviewed
Vital Signs / I&O / Oxygen:
Vital Signs
Temp Pulse Resp BP Pulse Ox
98.9 F 131 20 95/59 99
10/21/24 03:09 10/21/24 06:00 10/21/24 06:00 10/20/24 23:14 10/21/24 06:00
Intake and Output
10/20/24 10/21/24 10/22/24
06:59 06:59 06:59
Intake Total 2393.1 / 2484.6 1328.5 / 1328.5
Output Total 1230 / 1250 1063.0 / 1063.0
Balance 1163.1 / 1234.6 265.5 / 265.5
SaO2 [CPAP/PSV] 99
SaO2 [A/C] 98
SaO2 99
Nasal Cannula flow liters per 4
minute
Physical Exam
General: Comfortable and Other (NAD)
HEENT: Normocephalic, Anicteric and Moist Mucous Membranes
Cardiovascular: S1-S2 (Heart rate better) and Regular Rhythm
Respiratory: Clear and Non-Labored Respirations
GI: Soft, Non Distended and Non Tender
Neurology: Awake, Alert, Oriented and No Motor Deficits
Skin: Warm and Dry
Labs/Micro/Reports
Lab Data
10/21/24 04:21
10/21/24 04:21
Laboratory Results
10/20/24 10/21/24
08:49 04:21
APTT 97.4 H
pH 7.47 H 7.47 H
pCO2 28 L 30 L
pO2 125 H 79 L
HCO3 20.4 L 21.8
O2 Delivery Level O2
Microbiology
10/20/24 05:11 Blood/Venous Blood Culture - Preliminary
No Growth in 24 hours- Final report to follow
10/18/24 04:44 Blood/Venous Blood Culture - Preliminary
No Growth in 72 hours- Final report to follow
10/17/24 04:14 Blood/Venous Blood Culture - Preliminary
No Growth in 4 days- Final report to follow
10/19/24 03:41 Blood/Venous Blood Culture - Preliminary
No Growth in 48 hours- Final report to follow
10/16/24 02:18 Blood/Venous Blood Culture - Final
No Growth - Final Report
10/19/24 11:30 Sputum Respiratory Culture - Preliminary
NO GROWTH
10/19/24 11:30 Sputum Gram Stain - Preliminary
10/14/24 10:11 Blood/Venous Blood Culture - Final
S aureus-Methicillin Sensitive
10/14/24 10:11 Blood/Venous Gram Stain - Final
[2024-10-21] MEDS: MIRALAX TUBE (07:29)
--- NOTE | 2024-10-21 07:49 | PTCARENOTE ---
Pt rec'd from night RN in report, heparin and levo running -see worklist, pt awake and asking to come off bipap, requesting ice chips. Bipap removed by RT, 4L nasal cannula placed. Orders reviewed, safe environment maintained. at bedside.
--- NOTE | 2024-10-21 08:04 | PTCARENOTE ---
Sa02 88-92% on 4L, deep breathing encouraged, HOB <30, sa02 increased to 94%. Incentive Spirometer given to pt, education provided by RT.
--- NOTE | 2024-10-21 08:04 | W.PN.NEPH.PH ---
Today's Communication / Plan
-
Maintain Levophed to keep MAP 65 or greater
Would strongly consider 40 mg of IV
Prognosis
Assessment/Plan
-
64y F with PMH significant for breast cancer and recent long and complicated hospital stay who presents to ED complaining of fevers / chills and noted to be hypotensive at physician's office today. Patient was admitted to 08/02 - 08/22
secondary to sepsis - presumably related to chest wall chemo port. Patient was found to have MSSA bacteremia and was treated with IV Vancomycin through September 21. Bacteremia was persistent despite catheter removal and IV abx. Patient suffered
embolic strokes during her hospital stay with vision and speech changes. She was taken to the OR on 08/10 and underwent mitral valve repair / annuloplasty, MAZE procedure and left atrial appendage clip. Blood cultures after 08/10 were negative.
She continued on treatment with IV Vancomycin (and PO vancomycin for prophylaxis).
Patient seen in renal consultation acute kidney injury. She was previously seen by us for hyponatremia
Impression.
Acute kidney injury admitting creatinine 2.4 with baseline 0.9= hemodynamic mediated hypovolemia sepsis
Bacteremia recurrent= staph
Breast CA
Infectious endocarditis with recent MVR
Cardiogenic shock
Plan.
I would provide 40 mg of IV Lasix, PAD 19, will defer to cardiology however
Creatinine improved to 1.2, grossly nonoliguric of 1 L via Adair,weights up , CXR reviewed: bilateral opacities persist
She is currently on BiPAP with some sedation
Remains on pressor support in the setting of hemodynamic instability
Patient remains critically ill with hemodynamic instability on Levophed support
Reviewed [place] parameters with nursing, cardiac index 1.8 PAD 19
Remains heparinized

33 minutes critical care time
-
-
Date of Service: October 21, 2024
CC / HPI / ROS
-
Chief Complaint:
Sepsis
History of Present Illness:
JAMES secondary to sepsis and hypotension
Hemodynamically labile on pressor support
Tachycardic
Remains on heparin infusion
Creatinine improved to 1 point
Review of Systems:
Weights up
Nonoliguric
No fevers
Extubated on BiPAP lethargic
Labs
-
Labs:
WBC 36.5 10^3/uL (4.8-10.8) H 10/21/24 04:21
RBC 2.77 10^6/uL (4.20-5.40) L 10/21/24 04:21
Hgb 8.4 g/dL (12.0-16.0) L 10/21/24 04:21
Hct 25.3 % (37.0-47.0) L 10/21/24 04:21
Plt Count 159 10^3/uL (130-400) 10/21/24 04:21
Sodium 135 mmol/L (135-145) 10/21/24 04:21
Potassium 3.8 mmol/L (3.5-5.1) 10/21/24 04:21
Chloride 108 mmol/L (98-107) H 10/21/24 04:21
Carbon Dioxide 23 mmol/L (22-30) 10/21/24 04:21
BUN 54 mg/dl (7-17) H 10/21/24 04:21
Creatinine 1.2 mg/dL (0.6-1.0) H 10/21/24 04:21
eGFR 50.23 10/21/24 04:21
Glucose 122 mg/dl (70-99) H 10/21/24 04:21
Calcium 8.0 mg/dl (8.4-10.2) L 10/21/24 04:21
Phosphorus 4.4 mg/dl (2.5-4.5) 10/19/24 03:40
Tcg-H-Nyrhowgzeru Pept 25073 pg/ml 10/18/24 11:13
Albumin 2.3 g/dl (3.5-5.0) L 10/21/24 04:21
Physical Exam
-
Vital Signs:
Vital Signs
Temp Pulse Resp BP Pulse Ox
98.9 F 132 19 95/59 94
10/21/24 03:09 10/21/24 07:00 10/21/24 07:00 10/20/24 23:14 10/21/24 07:53
Cardiovascular:: Regular rate and rhythm (tachy)
Respiratory:: Bilateral: Coarse
Lung Excursion:: Normal
Abdomen:: Nontender and Soft
Bowel Sounds:: Decreased
Extremity Edema:: +1: Bilateral:
[place] Catheter: Yes
[2024-10-21] MEDS: PACERONE 400 MG TUBE ×2 (08:27→15:44)
--- NOTE | 2024-10-21 09:08 | PTCARENOTE ---
Pt assessed, oral care, peña care and CHG bath provided. Pt repositioned, back rubbed. [place] catheter and arterial line leveled and zeroed, correlating with non invasive cuff. Plan discussed with Armani Barrett and Kirill. O2 increased
to 6L for Sa02 91%. Sat now increased to 94%. Safe environment continues.
--- NOTE | 2024-10-21 09:46 | W.PN.ID1 ---
Date of Service
Date of Service: October 21, 2024
Today's Communication
Check C. diff if diarrhea persists.
Continue cefazolin.
Assessment / Plan
# Relapse complicated MSSA bacteremia/IE
. Blood cx x 4 MSSA
. 10/16 and onward blood cx's neg to date.
# Infective endocarditis of recent MV repair
.10/07 outpt DONNELL: mobile echogenic mass (0.74cm x 1.23cm) arising from adjacent or from annuloplasty ring MV
# s/p Acute hypoxemic respiratory failure (onset 10/16), intubated 10/18. Extubated 10/20.
# s/p Cardiogenic shock
. 10/18 RHC Cardiac cath: severe RV dysfunction, pulm HTN,, reduced cardiac output, normal SVR
# fever - resolved
# leukocytosis, trending up.
# Afib with RVR
# JAMES
# Allergy to PCN, cephalosporin, cipro, sulfa; tolerated cefazolin challenge on 10/14
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
. 08/10/24 s/p open radical mitral valve repair debridement of annulus, patch repair, annuloplasty with 30 mm band
. Completed IV Vancomycin (HORSE RIDING COACH OR INSTRUCTOR penetration) through 09/21/24 (6 weeks from MV repair)
Plan:
- Sputum cx neg.
- 10/16 C. diff neg.
- Leukocytosis trending up
Repeat C. diff with next diarrhea given elevated wbc.
DC lines if no longer needed
- Continue cefazolin 2g IV q8h x 6 weeks then chronic suppressive therapy
- Trend wbc
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
Cardio-embolic CVA with left vision loss
Right breast cancer status post lumpectomy, was on adjuvant chemo, last received 08/01/24
Hypertension
Hypothyroidism
Atrial fib
Anxiety
Left Parotid gland tumor excision 2024
Port placement -> dc'd 08/17
Cholecystectomy
Hysterectomy
Finger tumor radical resection 1985
Sacrocolpopexy
Chief Complaint
-: Bacteremia
Subjective / Review of Systems
Glad to be extubated.
+ 3 loose stools overnight. Last Miralax was yesterday am.
Vital Signs / Physical Exam
Vital Signs
Vital Signs
Temp Pulse Resp BP Pulse Ox
98.9 F 130 22 104/76 95
10/21/24 03:09 10/21/24 09:00 10/21/24 09:00 10/21/24 08:59 10/21/24 09:26
Physical Exam
Constitutional: Comfortable
Eyes: Sclera Anicteric
Cardiovascular: S1/S2 (tachycardic)
Pulmonary: Rales (bases)
Gastrointestinal: Soft, Non Tender and Non Distended
Extremities: Edema
Skin: Negative Rash
Neurological: AO x 3
Objective Data
Lab Data
Lab Results
10/21/24 04:21
10/21/24 04:21
PT 32.5 Sec (11.4-14.6) H 10/18/24 21:01
INR 3.18 10/18/24 21:01
APTT 97.4 Sec (23.4-35.0) H 10/21/24 04:21
Estimated Creat Clear 45 ml/min 10/21/24 04:21
Lactic Acid 1.9 mmol/L (0.7-2.0) 10/20/24 11:15
Total Bilirubin 0.7 mg/dl (0.2-1.3) 10/21/24 04:21
AST 38 U/L (14-36) H 10/21/24 04:21
ALT 18 U/L (0-35) 10/21/24 04:21
Alkaline Phosphatase 102 U/L (38-126) 10/21/24 04:21
Most recent labs reviewed.
Micro Results:
10/20/24 05:11 Blood Culture - Preliminary
Blood/Venous No Growth in 24 hours- Final report to follow
10/18/24 04:44 Blood Culture - Preliminary
Blood/Venous No Growth in 72 hours- Final report to follow
10/21/24 04:37 Blood Culture - Pending
Blood/Venous
10/17/24 04:14 Blood Culture - Preliminary
Blood/Venous No Growth in 4 days- Final report to follow
10/19/24 03:41 Blood Culture - Preliminary
Blood/Venous No Growth in 48 hours- Final report to follow
10/16/24 02:18 Blood Culture - Final
Blood/Venous No Growth - Final Report
10/19/24 11:30 Respiratory Culture - Preliminary
Sputum NO GROWTH
Gram Stain - Preliminary
10/14/24 10:11 Blood Culture - Final
Blood/Venous S aureus-Methicillin Sensitive
Gram Stain - Final
10/16/24 21:50 C. difficile GDH Antigen & Toxins - Final
Feces/Stool Negative for toxigenic C.difficile
10/14/24 10:11 Blood Culture - Preliminary
Blood/Venous S aureus-Methicillin Sensitive
Gram Stain - Preliminary
10/13/24 17:09 Blood Culture - Final
Blood/Venous S aureus-Methicillin Sensitive
Gram Stain - Final
10/13/24 16:07 Blood Culture - Final
Blood/Venous S aureus-Methicillin Sensitive
Gram Stain - Final
10/13/24 18:35 Urine Culture - Final
Urine NO GROWTH
10/13/24 17:09 Influenza Types A & B (DAHLIA) - Final
Nasal Swab Negative for Influenza A & B, NAAT
Negative results must be combined with clinical observations
and patient history.
Nucleic Acid Amplification test (NAAT)performed on the
[employer] platform.
10/19/24 CXR: Redemonstration of low lung volumes with diffusely increased interstitial and patchy alveolar opacities bilaterally. Alveolar consolidation within the lung bases has improved. No significant pleural effusion or pneumothorax.
10/16/24 CXR: There are new patchy airspace opacities throughout the right lung which likely represent multifocal pneumonia, less likely asymmetric edema
10/13/24 CXR: No acute cardiopulmonary process.
10/07/24 DONNELL: Adjacent or possibly arising from the ring near the posterior leaflet, there is a mobile echogenic mass (0.74cm x 1.23cm). No signficant regurgitation. Mitral valve gradient pk/mean 12/5mmHg.
Compared to the Intraop DONNELL report from 08/10/24, the finding associated with the mitral valve reported is in similar location. Measurements differ a bit (0.7x0.6cm on the prior)
Care Review
Plan reviewed with: Nurse
--- NOTE | 2024-10-21 10:01 | PTCARENOTE ---
Levophed weaned off at 09:40 for MAP of 85 per protocol. Continuing to closely monitor.
--- NOTE | 2024-10-21 10:06 | PTCARENOTE ---
Plan discussed with Dr. Doran at bedside, he stated he will have [place] Eugenia removed.
--- NOTE | 2024-10-21 10:25 | PTCARENOTE ---
Levophed resumed at 1 mcg/min to maintain MAP >65 per protocol at 10:23.
--- NOTE | 2024-10-21 11:03 | PTCARENOTE ---
[place]ri[place] and Cordis removed by Steph MANRIQUE at 10:55 per orders. Per Rounds with critical care team, orders rec'd for Midodrine PRN SBP <90, bipap nightly and PRN, speech reconsulted for diet recs. Plan to also remove arterial line. Pt and updated
and in agreement. PT/OT consulted and will see patient this afternoon.
[2024-10-21 11:30] LABS: Glucose - Point of Care 126 mg/dl (70-99)
--- NOTE | 2024-10-21 11:55 | PTOTSP ---
Speech Language Pathology
Pt seen for dysphagia tx post reconsult. Pt was seen for eval only on 10/15/23. Pt then intubated 10/18 and extubated 10/20. Hoarse voice noted. Seen with P.O. trials of puree, regular solids, and thin liquids. Pt extra cautious, taking small
bites/sips. Adequate mastication, bolus formation, and A-P transit noted with no oral residue. Dry cough noted x3 during entirety of evaluation. RN reported similar cough throughout morning in absence of P.O. intake. No change in vocal quality
noted. Pt is at increased risk of aspiration given recent extubation. Will consider FEES if any difficulty noted/suspected.
Recommend:
(1) Regular solids/thin liquids
(2) Aspiration precautions: sit upright, slow rate, single sips
(3) Meds as tolerated
(4) ELECTRON[employer] RECORDER to continue to follow
--- NOTE | 2024-10-21 13:24 | PTCARENOTE ---
Arterial line removed per order at approx 11:20.
--- NOTE | 2024-10-21 15:03 | CM ---
Addendum entered by Norma Asencio 10/21/24 15:47:
Received SNF preferences. Referrals forwarded.
Original Note:
Bipap now @ HS and PRN, IV/AB, wean pressors, NGT. Discharge POC: SNF. Previously gave [employer] list. Friend is currently in room and will call and discuss with patient's and choose preferences.
--- NOTE | 2024-10-21 15:15 | PTCARENOTE ---
Pt worked with PT to sit on side of bed, sat up 6 min and 30 sec. Pt tolerated well, did seated exercises. Returned to bed. BPs stable, levophed weaned off per protocol. See flowsheet.
--- NOTE | 2024-10-21 15:38 | W.PN.HOSP.TC ---
Today's Communication/Plan
-
Assessment / Plan
Assessment / Plan
General: On BiPAP following commands
HEENT: Normocephalic and Atraumatic
Respiratory: Crackles
Cardiac: Regular Rhythm and Tachycardic
GI: Soft, Nontender and Nondistended
Musculoskeletal: No Clubbing
Skin: Warm and Dry
Neuro: sedated
Shock initially secondary to septic shock in the setting of MSSA bacteremia and endocarditis now unclear as to shock is cardiogenic shock versus medication induced shock related to propofol or rapid sequence intubation agents
Back on pressor support, continue midodrine
Continue IV cefazolin
Will require persistent blood culture negativity to determine duration of antibiotics, blood cultures from 10/16 negative thus far
Follow fever curve
Infectious disease following
Cardiology following
Acute hypoxemic respiratory failure for ICU
Extubated to BiPAP
Repeat chest x-ray ABG in the a.m.
Past week resume diet
RV failure with evidence of neck pulmonary hypertension
Per cardiology will continue to monitor
Severe TR suspect improved with RV failure and volume overload improves however if clinically worsens may require VV ECMO
VHD
Mitral recently repaired
Cards consulted
Paroxysmal atrial fibrillation/flutter
Stop IV amiodarone per cardiology
Increase p.o. Amio to 200 mg 3 times daily
Add metoprolol extended release per cardiology
N.p.o. left discontinue heparin drip start Eliquis
Monitor on telemetry
JAMES, resolved
Hyponatremia, suspected SIADH, resolved
Normocytic anemia in the setting of sepsis
Transfuse if hemoglobin less than 7
Diarrhea
C. difficile negative
Provide loperamide
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
Persistent right-sided weakness vision change and speech impairment
Continue PT/OT/speech
Breast CA
S/p bilateral mastectomies
Of current chemotherapy regimen due to hospitalization
Hypothyroidism
Continue levothyroxine
IMU
Anticipated Discharge: 24 - 48 hours
Subjective/Interval History
-
Date of Service: October 21, 2024
Seen and examined. No new complaints. No acute overnight events
Objective Data
-
Labs:
Laboratory Results
10/21/24
04:21
WBC 36.5 H
Hgb 8.4 L
Hct 25.3 L
Plt Count 159
APTT 97.4 H
HCO3 21.8
Sodium 135
Potassium 3.8
Chloride 108 H
Carbon Dioxide 23
BUN 54 H
Creatinine 1.2 H
Glucose 122 H
Calcium 8.0 L
Total Bilirubin 0.7
AST 38 H
ALT 18
Alkaline Phosphatase 102
Vital Signs:
Vital Signs
Temp Pulse Resp BP Pulse Ox
99 F 128 32 95/72 90
10/21/24 11:33 10/21/24 15:00 10/21/24 15:00 10/21/24 15:12 10/21/24 15:12
I&O
10/20/24 10/21/24 10/22/24
06:59 06:59 06:59
Intake Total 2393.1 / 2484.6 1328.5 / 1360.0 451.3 / 451.3
Output Total 1230 / 1250 1063.0 / 1088.0 395 / 395
Balance 1163.1 / 1234.6 265.5 / 272.0 56.3 / 56.3
[2024-10-21] MEDS: LASIX 20 MG PO (15:45)
--- NOTE | 2024-10-21 15:57 | PTCARENOTE ---
Pt sa02 88% ....placed back on bipap at approx 15:45 to rest. Per Ron Castaneda and Raine, orders rec'd for diet, PO lasix and heparin. Pt and friend Liberty updated. Pt planning to come off bipap around 17:30 to eat dinner.
--- NOTE | 2024-10-21 16:34 | W.PN.CD ---
Today's Communication / Plan
-
Watch on Amio 400 TID
Move to Eliquis
Daily Lasix to keep weight 77-78 kg
Impression / Plan
-
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 Presents with staph aureus bacteremia and concern for MV vegetation, hypoxic respiratory, and mixed septic cardiogenic shock. Now extubated with improving shock and
negative cultures over 48 hours on abx.
Subassemblies Wirer: Espinoza
Furhter improved
- Extubated with plans to move to the floor
Shock, mixed etiology, much improved => PA catheter being removed today
Recurrent complicated MSSA bacteremia, strongly suspect infection of the MV and the MV repair material
- Reoperation of the MV at this acute time with a 50% operative mortality and cultures have cleared and the repair on echo is holding up => no surgery
- IV ATBs planned for 6 weeks and CHRONIC INDEFINITE SUPPRESSIVE ATBS to follow
RV dysfunction likely multifactorial, the improved PASP and improved TR are good signs
- Follow with serial echo
Heart failure (HFpEF)
- Will need daily diuretic
- For now goal weight of 77-78 kg seems reasonable based on PAD from PA/[place] catheter data
Paroxysmal atrial fibrillation/typical flutter
- Rate: Fast 130s, appropriate for illness overall, will continue amio (now at 400 TID) and consider DONNELL/CV in future
- Rhythm: Has been paroxysmal, seems to be in it for most of past 2-3 days.
- Anticoagulation: Eliquis => IV heparin
JAMES,
- likely component of pre-renal given low filling pressures
- no more diuresis, consider gentle fluids
- renal involved
Subjective: Feels much better.
Physical Exam
Vital Signs/Labs
Vital Signs
Temp Pulse Resp BP Pulse Ox
99 F 128 21 87/72 94
10/21/24 15:20 10/21/24 16:00 10/21/24 16:00 10/21/24 16:00 10/21/24 16:03
10/20/24 10/21/24 10/22/24
06:59 06:59 06:59
Actual Weight 77.1 kg 78.1 kg
10/21/24 04:21
10/21/24 04:21
PT 32.5 Sec (11.4-14.6) H 10/18/24 21:01
INR 3.18 10/18/24 21:01
APTT 97.4 Sec (23.4-35.0) H 10/21/24 04:21
Magnesium 2.0 mg/dl (1.6-2.3) 10/21/24 04:21
Triglycerides 191 mg/dl (10-149) H 10/20/24 05:11
10/18/24
11:13
Nqm-W-Xepasdsaurb Pept [id number]
Physical Exam
Constitutional: No acute distress
EENT: Anicteric
Cardiovascular: S1S2 is normal (rapid and regular)
Respiratory: Respiratory effort normal and Lungs clear to auscul.
GI: Soft and Distention absent
Neuro/Psych: AO x 3
Data Reviewed
-
Date of Service: October 21, 2024
--- NOTE | 2024-10-21 17:27 | PTCARENOTE ---
Bipap off by RT Vidal, JOSE ANTONIO pulled, pt repositioned, oral care provided, aspiration precautions reviewed. Pt's and friend at bedside helping patient with dinner tray. Safe environment maintained.
--- NOTE | 2024-10-21 17:53 | PTCARENOTE ---
Sa02 maintaining 85-88% on increased nasal cannula 02, pt not subjectively SOB but breathing is slightly shallow. IS done, no improvement, RT called for midflow. Placed midflow at 10L, sa02 now 92%.
--- NOTE | 2024-10-21 19:00 | PTCARENOTE ---
Per protocol, peña catheter removed at 18:30. Purewick placed for accurate I+Os. Pt verbalized understanding. Pericare provided for one small loose brown BM, not enough to send for sample. Update provided to oncoming RN.
[2024-10-21] MEDS: ELIQUIS 5 MG PO (19:56)
[2024-10-21] MEDS: PACERONE 400 MG PO (21:43)
[2024-10-21] MEDS: ATIVAN 0.5 MG PO (21:43)
[2024-10-22] VITALS (23 sets, daily range): BP systolic 82–98; BP diastolic 44–81; PULSE 2–76; BMI 31.1
--- NOTE | 2024-10-22 02:45 | TRANSFER ---
Pt tsx'd to IMU room 3350 via bed w/ personal belongings. Report given to receiving RN, Joey.
[2024-10-22] MEDS: SYNTHROID 50 MCG PO (05:30)
[2024-10-22] MEDS: ANCEF 10 IV ×3 (05:30→22:56)
[2024-10-22 06:07] LABS: Hematocrit 22.6 % (37.0-47.0); Hemoglobin 7.6 g/dL (12.0-16.0); Mean Corp Hgb Conc. 33.6 g/dL (33.0-37.0); Mean Corpuscular Volume 91.9 fL (81.0-99.0); Platelet Count 120 10^3/uL (130-400); Red Cell Dist. Width 16.1 % (11.5-14.5)
[2024-10-22 06:20] LABS: Blood Urea Nitrogen 46 mg/dl (7-17); Calcium 8.2 mg/dl (8.4-10.2); Carbon Dioxide 27 mmol/L (22-30); Chloride 108 mmol/L (98-107); Estimated Creatinine Clearance 45 ml/min; Glucose 104 mg/dl (70-99); Potassium 3.3 mmol/L (3.5-5.1); Sodium 137 mmol/L (135-145); eGFR 50.23
--- NOTE | 2024-10-22 08:05 | W.PN.NEPH.PH ---
Today's Communication / Plan
-
Maintain lasix
Replete potassium
Assessment/Plan
-
64y F with PMH significant for breast cancer and recent long and complicated hospital stay who presents to ED complaining of fevers / chills and noted to be hypotensive at physician's office today. Patient was admitted to 08/02 - 08/22
secondary to sepsis - presumably related to chest wall chemo port. Patient was found to have MSSA bacteremia and was treated with IV Vancomycin through September 21. Bacteremia was persistent despite catheter removal and IV abx. Patient suffered
embolic strokes during her hospital stay with vision and speech changes. She was taken to the OR on 08/10 and underwent mitral valve repair / annuloplasty, MAZE procedure and left atrial appendage clip. Blood cultures after 08/10 were negative.
She continued on treatment with IV Vancomycin (and PO vancomycin for prophylaxis).
Patient seen in renal consultation acute kidney injury. She was previously seen by us for hyponatremia
Impression.
Acute kidney injury admitting creatinine 2.4 with baseline 0.9= hemodynamic mediated hypovolemia sepsis
Bacteremia recurrent= staph
Breast CA
Infectious endocarditis with recent MVR
Cardiogenic shock
Plan.
Creatinine down to 1.2
Replete potassium
Urine output via Adair around 800 cc after 20 mg of IV Lasix provided yesterday, now on 20mg po daily
Creatinine improved to 1.2, nonoliguric of 800cc via Adair, , CXR reviewed: bilateral opacities persist
She is currently on BiPAP with some sedation
Remains on pressor support in the setting of hemodynamic instability
Patient remains critically ill with hemodynamic instability on Levophed support
Reviewed [place] parameters with nursing, cardiac index 1.8 PAD 19
we will sign off

33 minutes critical care time
-
-
Date of Service: October 22, 2024
CC / HPI / ROS
-
Chief Complaint:
Sepsis
History of Present Illness:
JAMES secondary to sepsis and hypotension
Hemodynamically labile on pressor support
Remains on heparin infusion
Creatinine improved to 1.2
Review of Systems:
Weights stable
Nonoliguric
No fevers
Extubated on BiPAP lethargic
Labs
-
Labs:
WBC 25.9 10^3/uL (4.8-10.8) H 10/22/24 05:29
RBC 2.46 10^6/uL (4.20-5.40) L 10/22/24 05:29
Hgb 7.6 g/dL (12.0-16.0) L 10/22/24 05:29
Hct 22.6 % (37.0-47.0) L 10/22/24 05:29
Plt Count 120 10^3/uL (130-400) L D 10/22/24 05:29
Sodium 137 mmol/L (135-145) 10/22/24 05:29
Potassium 3.3 mmol/L (3.5-5.1) L 10/22/24 05:29
Chloride 108 mmol/L (98-107) H 10/22/24 05:29
Carbon Dioxide 27 mmol/L (22-30) 10/22/24 05:29
BUN 46 mg/dl (7-17) H 10/22/24 05:29
Creatinine 1.2 mg/dL (0.6-1.0) H 10/22/24 05:29
eGFR 50.23 10/22/24 05:29
Glucose 104 mg/dl (70-99) H 10/22/24 05:29
Calcium 8.2 mg/dl (8.4-10.2) L 10/22/24 05:
Phosphorus 4.4 mg/dl (2.5-4.5) 10/19/24 03:40
Zrp-L-Lwpgiiqwekm Pept 03977 pg/ml 10/18/24 11:13
Albumin 2.3 g/dl (3.5-5.0) L 10/21/24 04:21
Physical Exam
-
Vital Signs:
Vital Signs
Temp Pulse Resp BP Pulse Ox
98.6 F 63 19 97/57 92
10/22/24 03:11 10/22/24 07:00 10/22/24 07:00 10/22/24 06:00 10/22/24 07:00
Cardiovascular:: Regular rate and rhythm (tachy)
Respiratory:: Bilateral: Coarse
Lung Excursion:: Normal
Abdomen:: Nontender and Soft
Bowel Sounds:: Decreased
Extremity Edema:: +1: Bilateral:
Adair Catheter: Yes
--- NOTE | 2024-10-22 08:35 | W.PN.UPDATE ---
Update Note
Progress Note Update
CARDIAC SURGERY ATTENDING:
Pt. making progress from medical perspective. ECHO reviewed. Would recommend against any surgical intervention at present given no MR/MS with improving hemodynamics. Any opertative intervention at present would be associated with near prohibitive
perioperative risk. Will continue to follow closely. Thank you.
[2024-10-22] MEDS: LASIX 20 MG PO (08:43)
[2024-10-22] MEDS: ELIQUIS 5 MG PO ×2 (08:43→20:06)
[2024-10-22] MEDS: PACERONE 400 MG PO (08:43)
[2024-10-22] MEDS: KLOR-CON 20 MEQ PO (08:44)
--- NOTE | 2024-10-22 09:28 | W.PN.ID1 ---
Date of Service
Date of Service: October 22, 2024
Today's Communication
Continue antibiotics.
Assessment / Plan
# Relapse of complicated MSSA bacteremia/IE
. Blood cx x 4 MSSA
. 10/16 and onward blood cx's neg to date.
# Infective endocarditis of recent MV repair
. 10/07 outpt DONNELL: mobile echogenic mass (0.74cm x 1.23cm) arising from adjacent or from annuloplasty ring MV
# s/p Acute hypoxemic respiratory failure (onset 10/16), intubated 10/18. Extubated 10/20.
# s/p Cardiogenic shock
. 10/18 [facility] Cardiac cath: severe RV dysfunction, pulm HTN,, reduced cardiac output, normal SVR
# fever - resolved
# leukocytosis, trending up.
# Afib with RVR
# JAMES
# Allergy to PCN, cephalosporin, cipro, sulfa; tolerated cefazolin challenge on 10/14
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
. 08/10/24 s/p open radical mitral valve repair debridement of annulus, patch repair, annuloplasty with 30 mm band
. Completed IV Vancomycin (NASCAR DRIVER penetration) through 09/21/24 (6 weeks from MV repair)
Plan:
- Sputum cx neg.
- 10/16 C. diff neg.
- Leukocytosis improved today
Repeat C. diff with next diarrhea given elevated wbc.
D/C lines if no longer needed
- Continue cefazolin 2g IV q8h x 6 weeks then chronic suppressive therapy
- Trend wbc
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
Cardio-embolic CVA with left vision loss
Right breast cancer status post lumpectomy, was on adjuvant chemo, last received 08/01/24
Hypertension
Hypothyroidism
Atrial fib
Anxiety
Left Parotid gland tumor excision 2024
Port placement -> dc'd 08/17
Cholecystectomy
Hysterectomy
Finger tumor radical resection 1985
Sacrocolpopexy
Chief Complaint
-: Bacteremia
Subjective / Review of Systems
Review of Systems: No Fever and No Chills
Vital Signs / Physical Exam
Vital Signs
Vital Signs
Temp Pulse Resp BP Pulse Ox
98.6 F 74 20 83/58 95
10/22/24 03:11 10/22/24 08:00 10/22/24 08:00 10/22/24 08:00 10/22/24 08:00
Physical Exam
Constitutional: Comfortable
Eyes: Sclera Anicteric
Cardiovascular: S1/S2 (tachycardic)
Pulmonary: Rales (bases)
Gastrointestinal: Soft, Non Tender and Non Distended
Extremities: Edema
Skin: Negative Rash
Neurological: AO x 3
Lines: CVP (right IJ in place)
Objective Data
Lab Data
Lab Results
10/22/24 05:29
10/22/24 05:29
PT 32.5 Sec (11.4-14.6) H 10/18/24 21:01
INR 3.18 10/18/24 21:01
APTT 97.4 Sec (23.4-35.0) H 10/21/24 04:21
Estimated Creat Clear 45 ml/min 10/22/24 05:29
Lactic Acid 1.9 mmol/L (0.7-2.0) 10/20/24 11:15
Total Bilirubin 0.7 mg/dl (0.2-1.3) 10/21/24 04:21
AST 38 U/L (14-36) H 10/21/24 04:21
ALT 18 U/L (0-35) 10/21/24 04:21
Alkaline Phosphatase 102 U/L (38-126) 10/21/24 04:21
Most recent labs reviewed.
Micro Results:
10/20/24 05:11 Blood Culture - Preliminary
Blood/Venous No Growth in 48 hours- Final report to follow
10/18/24 04:44 Blood Culture - Preliminary
Blood/Venous No Growth in 4 days- Final report to follow
10/21/24 04:37 Blood Culture - Preliminary
Blood/Venous No Growth in 24 hours- Final report to follow
10/17/24 04:14 Blood Culture - Final
Blood/Venous No Growth - Final Report
10/19/24 03:41 Blood Culture - Preliminary
Blood/Venous No Growth in 72 hours- Final report to follow
10/14/24 10:11 Blood Culture - Final
Blood/Venous S aureus-Methicillin Sensitive
Gram Stain - Final
10/19/24 11:30 Respiratory Culture - Final
Sputum NO GROWTH
Gram Stain - Final
10/16/24 02:18 Blood Culture - Final
Blood/Venous No Growth - Final Report
10/14/24 10:11 Blood Culture - Final
Blood/Venous S aureus-Methicillin Sensitive
Gram Stain - Final
10/16/24 21:50 C. difficile GDH Antigen & Toxins - Final
Feces/Stool Negative for toxigenic C.difficile
10/13/24 17:09 Blood Culture - Final
Blood/Venous S aureus-Methicillin Sensitive
Gram Stain - Final
10/13/24 16:07 Blood Culture - Final
Blood/Venous S aureus-Methicillin Sensitive
Gram Stain - Final
10/13/24 18:35 Urine Culture - Final
Urine NO GROWTH
10/13/24 17:09 Influenza Types A & B (DAHLIA) - Final
Nasal Swab Negative for Influenza A & B, NAAT
Negative results must be combined with clinical observations
and patient history.
Nucleic Acid Amplification test (NAAT)performed on the
[employer] platform.
10/19/24 CXR: Redemonstration of low lung volumes with diffusely increased interstitial and patchy alveolar opacities bilaterally. Alveolar consolidation within the lung bases has improved. No significant pleural effusion or pneumothorax.
10/16/24 CXR: There are new patchy airspace opacities throughout the right lung which likely represent multifocal pneumonia, less likely asymmetric edema
10/13/24 CXR: No acute cardiopulmonary process.
10/07/24 DONNELL: Adjacent or possibly arising from the ring near the posterior leaflet, there is a mobile echogenic mass (0.74cm x 1.23cm). No signficant regurgitation. Mitral valve gradient pk/mean 12/5mmHg.
Compared to the Intraop DONNELL report from 08/10/24, the finding associated with the mitral valve reported is in similar location. Measurements differ a bit (0.7x0.6cm on the prior)
--- NOTE | 2024-10-22 09:38 | W.PN.CD ---
Today's Communication / Plan
-
Increase Lasix
Monitor closely
I favor repeat h/h later today and PRBC if Hgb less than 9
Remove neck line if not absolutely needed
High risk with multiple active issues despite modest improvement
Impression / Plan
-
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 Presents with staph aureus bacteremia and concern for MV vegetation, hypoxic respiratory, and mixed septic cardiogenic shock. Now extubated with improving shock and
negative cultures over 48 hours on abx.
Wire Harness Assembler: Espinoza
Further improved => on the IMU, not yet ambulating => for PT
- Still needing high amounts of O2
- WBC is down a bit
- Still with hypotension but now with PRN midodrine
- CXR still with evidence of diffuse lung process that could be heart failure
- Blood cultures sill negative
- Broke to NSR w/o bradycardia this AM 10/22/2024 at 1250 hrs, I good sign that she is improving
Anemia
- Worse, etiology unknown
- Check stools
- Repeat H/H and low threshold for transfusion
Shock, mixed etiology, much improved => PA catheter is out
Recurrent complicated MSSA bacteremia, strongly suspect infection of the MV and the MV repair material
- Reoperation of the MV at this acute time with a 50% operative mortality and cultures have cleared and the repair on echo is holding up => no surgery. Agree with CT Surgery
- IV ATBs planned for 6 weeks and CHRONIC INDEFINITE SUPPRESSIVE ATBS to follow
RV dysfunction likely multifactorial, the improved PASP and improved TR are good signs
- Follow with serial echo
Heart failure (HFpEF)
- Will need diuretic => for now increase to Lasix 20 => 40 BID and monitor O2 requirements, BUN/Cr/BP/HCO2
- Primary pulmonary process like resolvigng ARDS could add to O2 requirements and CXR appearranced
- For now goal weight of 77-78 kg seems reasonable based on PAD from [place] catheter data
Paroxysmal atrial fibrillation/typical flutter
- Rate: was 2:1 flutter for several days =>broke to NSR w/o bradycardia this AM 10/22/2024 at 1250 hrs, I good sign that she is improving
- Rhythm: Has been paroxysmal, seems to be in it for most of past 2-3 days.
- Anticoagulation: Eliquis => IV heparin
JAMES,
- likely component of pre-renal given low filling pressures
- no more diuresis, consider gentle fluids
- renal involved
Subjective: Feels much better.
Physical Exam
Vital Signs/Labs
Vital Signs
Temp Pulse Resp BP Pulse Ox
98.6 F 74 20 83/58 95
10/22/24 03:11 10/22/24 08:00 10/22/24 08:00 10/22/24 08:00 10/22/24 08:00
10/21/24 10/22/24 10/23/24
06:59 06:59 06:59
Actual Weight 78.1 kg 77.1 kg
10/22/24 05:29
10/22/24 05:29
PT 32.5 Sec (11.4-14.6) H 10/18/24 21:01
INR 3.18 10/18/24 21:01
APTT 97.4 Sec (23.4-35.0) H 10/21/24 04:21
Magnesium 2.0 mg/dl (1.6-2.3) 10/21/24 04:21
Triglycerides 191 mg/dl (10-149) H 10/20/24 05:11
10/18/24
11:13
Nrg-Y-Lwpzkspkwfa Pept
Physical Exam
Constitutional: Comfortable
Cardiovascular: Rhythm & rate is regular and Pedal edema is absent
Respiratory: Respiratory effort normal and Crackles Present
GI: Soft and Distention absent
Neuro/Psych: AO x 3
Data Reviewed
-
Date of Service: October 22, 2024
--- NOTE | 2024-10-22 13:42 | W.PN.HOSP.TC ---
Today's Communication/Plan
-
Assessment / Plan
Assessment / Plan
General: On BiPAP following commands
HEENT: Normocephalic and Atraumatic
Respiratory: Crackles
Cardiac: Regular Rhythm and Tachycardic
GI: Soft, Nontender and Nondistended
Musculoskeletal: No Clubbing
Skin: Warm and Dry
Neuro: sedated
Shock initially secondary to septic shock in the setting of MSSA bacteremia and endocarditis now unclear as to shock is cardiogenic shock versus medication induced shock related to propofol or rapid sequence intubation agents
Back on pressor support, continue midodrine
Continue IV cefazolin
Will require persistent blood culture negativity to determine duration of antibiotics, blood cultures from 10/16 negative thus far
Follow fever curve
Infectious disease following
Cardiology following
Acute hypoxemic respiratory failure for ICU
Extubated to BiPAP
Repeat chest x-ray ABG in the a.m.
Past week resume diet
RV failure with evidence of neck pulmonary hypertension
Per cardiology will continue to monitor
Severe TR suspect improved with RV failure and volume overload improves however if clinically worsens may require VV ECMO
VHD
Mitral recently repaired
Cards consulted
Paroxysmal atrial fibrillation/flutter
Stop IV amiodarone per cardiology
Increase p.o. Amio to 200 mg 3 times daily
Add metoprolol extended release per cardiology
N.p.o. left discontinue heparin drip start Eliquis
Monitor on telemetry
JAMES, resolved
Hyponatremia, suspected SIADH, resolved
Normocytic anemia in the setting of sepsis
Repeat CBC at 2 PM
Blood consent obtained
Type and cross completed
2 units of blood on hold to be given in the afternoon once 2 PM CBC back if less than 9 give 2 units per cardiology
Between each unit and at the end of the second unit give 20 mg IV Lasix
Diarrhea
C. difficile negative
Provide loperamide
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
Persistent right-sided weakness vision change and speech impairment
Continue PT/OT/speech
Breast CA
S/p bilateral mastectomies
Of current chemotherapy regimen due to hospitalization
Hypothyroidism
Continue levothyroxine
IMU
Anticipated Discharge: > 48 hours
Subjective/Interval History
-
Date of Service: October 22, 2024
Seen and examined. No new complaints. No acute overnight events.
Spoke with her Bill over the phone as he was not at bedside. Informed him that we will repeat CBC at 2 PM. If hemoglobin still low will give 2 units PRBC as cardiology wants to target a hemoglobin of 9 as she is critically ill.
Objective Data
-
Labs:
Laboratory Results
10/22/24 10/22/24
05:29 14:00
WBC 25.9 H
Hgb 7.6 L Pending
Hct 22.6 L Pending
Plt Count 120 L D
Sodium 137
Potassium 3.3 L
Chloride 108 H
Carbon Dioxide 27
BUN 46 H
Creatinine 1.2 H
Glucose 104 H
Calcium 8.2 L
Vital Signs:
Vital Signs
Temp Pulse Resp BP Pulse Ox
98.9 F 74 20 83/58 95
10/22/24 07:48 10/22/24 08:00 10/22/24 08:00 10/22/24 08:00 10/22/24 08:00
I&O
10/21/24 10/22/24 10/23/24
06:59 06:59 06:59
Intake Total 1328.5 / 1360.0 521.3 / 521.3 240 / 240
Output Total 1063.0 / 1088.0 948 / 948 560 / 560
Balance 265.5 / 272.0 -426.7 / -426.7 -320 / -320
[2024-10-22] MEDS: FLUSH (NSS) 1 FLUSH IV (14:22)
[2024-10-22 14:48] LABS: Hematocrit 21.9 % (37.0-47.0); Hemoglobin 7.3 g/dL (12.0-16.0)
--- NOTE | 2024-10-22 16:11 | VATNOTE ---
MD order to remove left internal jugular triple lumen central line. Removed intact with bed in trendelenberg position following hospital policy. Direct pressure applied form 10 minutes. Sterile occlusive dressing applied. Dry and intact at time of
leaving room. Instructed client to rest quietly in bed for at least 30 minutes. Primary care RN aware.
[2024-10-22 16:48] LABS: Reticulocyte Count 2.0 % (0.4-2.8)
--- NOTE | 2024-10-22 17:30 | PTCARENOTE ---
Patient AAO x3. Drowsy at times, easily arousable. Denies any pain or discomfort. Using bed toscano for urine and BM's. Good urine output. Stool for c-diff sent to lab today. SR on monitor. VS soft. Midodrine administered as ordered,afebrile.
Hemoglobin 7.3. PRBC'S transfusing as ordered with IV lasix in between units. Patient in room at bedside.
[2024-10-22 17:40] LABS: Blood Urea Nitrogen 39 mg/dl (7-17); Calcium 8.0 mg/dl (8.4-10.2); Carbon Dioxide 29 mmol/L (22-30); Chloride 106 mmol/L (98-107); Estimated Creatinine Clearance 54 ml/min; Glucose 107 mg/dl (70-99); Potassium 3.2 mmol/L (3.5-5.1); Sodium 137 mmol/L (135-145); eGFR > 60.00
[2024-10-22] MEDS: LASIX PO (18:11)
[2024-10-22 18:37] LABS: LDH 481 U/L (120-246)
[2024-10-22] MEDS: KCL 20 MEQ PO (20:07)
[2024-10-22] MEDS: LASIX 20 MG IV (20:07)
--- NOTE | 2024-10-22 21:25 | PTCARENOTE ---
Assumed care of Pt from dayshift RN after receiving change of shift report. Pt received with 1 Unit PRBC concluding infusing. Infusion finished and 20 mg IV lasix admin post first unit per order in apr. HS PO meds administered crushed in apple sauce
per Pt request with Pt in upright seated position in bed HOB >30 degrees. Pt swallowed meds without difficulty. Pt then began to present with a nonproductive cough. Pt 02 sat dropped from 92% to 85-88%. Pt increased from 10L midflow to 15L midflow.
Pt remained sitting upright, RN instructed Pt to take slow deep breaths in their nose out their mouth. NRB placed on pt to assist in recovery of sats. Pt coughing intermittently, without production of sputum. suction at bedside. lungs auscultated to
be coarse bilaterally throughout. RN remaining at bedside throughout this situation the Pt able to recover to 92%, remaining on 15L midflow. assessment findings communicated to AUTOMATIC CENTR[employer]UGAL STATION OPERATOR on shift. instructed to withhold from administering second unit of
blood at this time.
[2024-10-22] MEDS: PACERONE PO (21:56)
[2024-10-22] MEDS: KCL 40 MEQ PO (22:55)
[2024-10-22] MEDS: ATIVAN 0.5 MG PO (22:55)
[2024-10-23] VITALS (24 sets, daily range): BP systolic 82–112; BP diastolic 55–75; PULSE 2–83; O2SAT 89; BMI 30.3
[2024-10-23] MEDS: SYNTHROID 50 MCG PO ×2 (05:03→05:05)
[2024-10-23] MEDS: LASIX 20 MG IV (05:04)
[2024-10-23] MEDS: ANCEF 10 IV ×3 (05:05→21:50)
--- NOTE | 2024-10-23 08:13 | W.PN.ID1 ---
Date of Service
Date of Service: October 23, 2024
Today's Communication
Continue antibiotics.
Assessment / Plan
# Relapse of complicated MSSA bacteremia/IE
. Blood cx x 4 MSSA
. 10/16 and onward blood cx's neg to date.
# Infective endocarditis of recent MV repair
. 10/07 outpt DONNELL: mobile echogenic mass (0.74cm x 1.23cm) arising from adjacent or from annuloplasty ring MV
# s/p Acute hypoxemic respiratory failure (onset 10/16), intubated 10/18. Extubated 10/20.
# s/p Cardiogenic shock
. 10/18 RHC Cardiac cath: severe RV dysfunction, pulm HTN,, reduced cardiac output, normal SVR
# fever - resolved
# leukocytosis, trending up.
# Afib with RVR
# JAMES
# Allergy to PCN, cephalosporin, cipro, sulfa; tolerated cefazolin challenge on 10/14
# Recent history of MSSA [place] mitral valve IE, SPRINKLER TENDER septic emboli with left vision loss
. 08/10/24 s/p open radical mitral valve repair debridement of annulus, patch repair, annuloplasty with 30 mm band
. Completed IV Vancomycin (SPRINKLER TENDER penetration) through 09/21/24 (6 weeks from MV repair)
Plan:
- Sputum cx neg.
- 10/16 C. diff neg.
- Leukocytosis ongoing. CBC pending from today.
Repeat C. diff negative.
Right IJ discontinued 10/22/2024
- Continue cefazolin 2g IV q8h x 6 weeks, then chronic suppressive therapy
- Trend wbc
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
Cardio-embolic CVA with left vision loss
Right breast cancer status post lumpectomy, was on adjuvant chemo, last received 08/01/24
Hypertension
Hypothyroidism
Atrial fib
Anxiety
Left Parotid gland tumor excision 2024
Port placement -> dc'd 08/17
Cholecystectomy
Hysterectomy
Finger tumor radical resection 1985
Sacrocolpopexy
Chief Complaint
-: Bacteremia
Subjective / Review of Systems
Patient seen and examined. No reported complaints today. No fevers or chills.
Vital Signs / Physical Exam
Vital Signs
Vital Signs
Temp Pulse Resp BP Pulse Ox
98.2 F 81 27 91/69 93
10/23/24 04:46 10/23/24 07:00 10/23/24 07:00 10/23/24 06:00 10/23/24 07:00
Physical Exam
Constitutional: Comfortable
Eyes: Sclera Anicteric
Cardiovascular: S1/S2 (tachycardic)
Pulmonary: Rales (bases)
Gastrointestinal: Soft, Non Tender and Non Distended
Extremities: Edema
Skin: Negative Rash
Neurological: AO x 3
Objective Data
Lab Data
PT 32.5 Sec (11.4-14.6) H 10/18/24 21:01
INR 3.18 10/18/24 21:01
APTT 97.4 Sec (23.4-35.0) H 10/21/24 04:21
Estimated Creat Clear 54 ml/min 10/22/24 17:06
Lactic Acid 1.9 mmol/L (0.7-2.0) 10/20/24 11:15
Total Bilirubin 0.7 mg/dl (0.2-1.3) 10/21/24 04:21
AST 38 U/L (14-36) H 10/21/24 04:21
ALT 18 U/L (0-35) 10/21/24 04:21
Alkaline Phosphatase 102 U/L (38-126) 10/21/24 04:21
Most recent labs reviewed.
Micro Results:
10/22/24 18:12 C. difficile GDH Antigen & Toxins - Final
Feces/Stool Negative for toxigenic C.difficile
10/20/24 05:11 Blood Culture - Preliminary
Blood/Venous No Growth in 72 hours- Final report to follow
10/18/24 04:44 Blood Culture - Final
Blood/Venous No Growth - Final Report
10/21/24 04:37 Blood Culture - Preliminary
Blood/Venous No Growth in 48 hours- Final report to follow
10/19/24 03:41 Blood Culture - Preliminary
Blood/Venous No Growth in 4 days- Final report to follow
10/17/24 04:14 Blood Culture - Final
Blood/Venous No Growth - Final Report
10/14/24 10:11 Blood Culture - Final
Blood/Venous S aureus-Methicillin Sensitive
Gram Stain - Final
10/19/24 11:30 Respiratory Culture - Final
Sputum NO GROWTH
Gram Stain - Final
10/16/24 02:18 Blood Culture - Final
Blood/Venous No Growth - Final Report
10/14/24 10:11 Blood Culture - Final
Blood/Venous S aureus-Methicillin Sensitive
Gram Stain - Final
10/16/24 21:50 C. difficile GDH Antigen & Toxins - Final
Feces/Stool Negative for toxigenic C.difficile
10/13/24 17:09 Blood Culture - Final
Blood/Venous S aureus-Methicillin Sensitive
Gram Stain - Final
10/13/24 16:07 Blood Culture - Final
Blood/Venous S aureus-Methicillin Sensitive
Gram Stain - Final
10/13/24 18:35 Urine Culture - Final
Urine NO GROWTH
10/13/24 17:09 Influenza Types A & B (DAHLIA) - Final
Nasal Swab Negative for Influenza A & B, NAAT
Negative results must be combined with clinical observations
and patient history.
Nucleic Acid Amplification test (NAAT)performed on the
[employer] NOW platform.
10/19/24 CXR: Redemonstration of low lung volumes with diffusely increased interstitial and patchy alveolar opacities bilaterally. Alveolar consolidation within the lung bases has improved. No significant pleural effusion or pneumothorax.
10/16/24 CXR: There are new patchy airspace opacities throughout the right lung which likely represent multifocal pneumonia, less likely asymmetric edema
10/13/24 CXR: No acute cardiopulmonary process.
10/07/24 DONNELL: Adjacent or possibly arising from the ring near the posterior leaflet, there is a mobile echogenic mass (0.74cm x 1.23cm). No signficant regurgitation. Mitral valve gradient pk/mean 12/5mmHg.
Compared to the Intraop DONNELL report from 08/10/24, the finding associated with the mitral valve reported is in similar location. Measurements differ a bit (0.7x0.6cm on the prior)
[2024-10-23 08:47] LABS: Hematocrit 32.4 % (37.0-47.0); Hemoglobin 11.0 g/dL (12.0-16.0); Mean Corp Hgb Conc. 34.0 g/dL (33.0-37.0); Mean Corpuscular Volume 90.8 fL (81.0-99.0); Platelet Count 117 10^3/uL (130-400); Red Cell Dist. Width 16.2 % (11.5-14.5)
[2024-10-23 08:50] LABS: Glucose - Point of Care 115 mg/dl (70-99)
[2024-10-23 08:59] LABS: Blood Urea Nitrogen 31 mg/dl (7-17); Calcium 7.9 mg/dl (8.4-10.2); Carbon Dioxide 28 mmol/L (22-30); Chloride 107 mmol/L (98-107); Estimated Creatinine Clearance 53 ml/min; Glucose 114 mg/dl (70-99); Magnesium 1.8 mg/dl (1.6-2.3); Potassium 3.1 mmol/L (3.5-5.1); Sodium 139 mmol/L (135-145); eGFR > 60.00
[2024-10-23] MEDS: KCL 20 MEQ PO ×3 (09:38→20:20)
[2024-10-23] MEDS: ELIQUIS 5 MG PO ×2 (09:38→20:19)
[2024-10-23] MEDS: PACERONE 400 MG PO ×2 (09:39→20:19)
[2024-10-23] MEDS: LASIX 40 MG PO ×2 (09:39→16:54)
--- NOTE | 2024-10-23 10:55 | W.PN.CD ---
Today's Communication / Plan
-
Hope to see less need for Oxygen soon, continue aggressive diuresis
Continue AMio 400 bid for several more days then 400 mg a day, likely at discharge just 200 mg a day
Continue Lasix 40 PO BID with KCl 20 meq BID
Extra KCl today with close followup of K+/Cr
Tele
Echo on Thursday
Impression / Plan
-
64 y/o female with PSVT, HTN and BRCA on chemotherapy admitted in July 2024 with complicated MSSA sepsis/bacteremia related to port tip and [place] mitral valve endocarditis s/p radical mitral valve repair (Brian, 08/10/24) subsequently complicated by
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 Presents with staph aureus bacteremia and concern for MV vegetation, hypoxic respiratory, and mixed septic cardiogenic shock. Now extubated with improving shock and
negative cultures over 48 hours on abx.
Harbor Pilot: Espinoza
Stable but remains quited ill => on the IMU, not yet ambulating => for PT
- SBP in low 90s
- O2 sat 90 on high NC O2 (10l)
- WBC is down a bit
- Still with hypotension but now with PRN midodrine
- Last CXR still with evidence of diffuse lung process that could be heart failure
- Blood cultures sill negative
- Broke to NSR w/o bradycardia this AM 10/22/2024 at 1250 hrs, I good sign that she is improving
Anemia
- Worse, etiology unknown
- Check stools
- Repeat H/H and low threshold for transfusion. Labs do not look like hemolysis, no gi bleedig seen
- Better after PRBC
Shock, mixed etiology, much improved => PA catheter is out
Recurrent complicated MSSA bacteremia, strongly suspect infection of the MV and the MV repair material
- Reoperation of the MV at this acute time with a 50% operative mortality and cultures have cleared and the repair on echo is holding up => no surgery. Agree with CT Surgery
- IV ATBs planned for 6 weeks and CHRONIC INDEFINITE SUPPRESSIVE ATBS to follow
RV dysfunction likely multifactorial, the improved PASP and improved TR are good signs
- Follow with serial echo
Heart failure (HFpEF)
- Will need diuretic => for now increase to Lasix 40 BID and monitor O2 requirements, BUN/Cr/BP/HCO2
- Primary pulmonary process like resolving ARDS could add to O2 requirements and CXR appearance
- For now goal weight of 77-78 kg seems reasonable based on PAD from [place] catheter data
Paroxysmal atrial fibrillation/typical flutter
- Rate: was 2:1 flutter for several days =>broke to NSR w/o bradycardia this AM 10/22/2024 at 1250 hrs, I good sign that she is improving
- Rhythm: Has been paroxysmal, seems to be in it for most of past 2-3 days.
- Anticoagulation: Back on Eliquis
JAMES, resolved
Subjective: Feels much better.
Physical Exam
Vital Signs/Labs
Vital Signs
Temp Pulse Resp BP Pulse Ox
98.2 F 81 27 91/69 93
10/23/24 04:46 10/23/24 07:00 10/23/24 07:00 10/23/24 06:00 10/23/24 07:00
10/22/24 10/23/24 10/24/24
06:59 06:59 06:59
Actual Weight 77.1 kg 75.1 kg
10/23/24 08:31
K 3.1 Cr 1
PT 32.5 Sec (11.4-14.6) H 10/18/24 21:01
INR 3.18 10/18/24 21:01
APTT 97.4 Sec (23.4-35.0) H 10/21/24 04:21
Magnesium 1.8 mg/dl (1.6-2.3) 10/23/24 08:31
Triglycerides 191 mg/dl (10-149) H 10/20/24 05:11
10/18/24
11:13
[id number] Pept [id number]
Physical Exam
Constitutional: No acute distress
Data Reviewed
-
Date of Service: October 23, 2024
[2024-10-23] MEDS: KCL 40 MEQ PO ×2 (13:26→15:55)
[2024-10-23 13:33] LABS: Glucose - Point of Care 135 mg/dl (70-99)
--- NOTE | 2024-10-23 13:58 | W.PN.HOSP.TC ---
Today's Communication/Plan
-
Assessment / Plan
Assessment / Plan
General: On BiPAP following commands
HEENT: Normocephalic and Atraumatic
Respiratory: Crackles
Cardiac: Regular Rhythm and Tachycardic
GI: Soft, Nontender and Nondistended
Musculoskeletal: No Clubbing
Skin: Warm and Dry
Neuro: sedated
Shock initially secondary to septic shock in the setting of MSSA bacteremia and endocarditis now unclear as to shock is cardiogenic shock versus medication induced shock related to propofol or rapid sequence intubation agents
Off pressor support, continue midodrine
Continue IV cefazolin
Will require persistent blood culture negativity to determine duration of antibiotics, blood cultures from 10/16 negative thus far
Follow fever curve
Infectious disease following
Cardiology following
Acute hypoxemic respiratory failure for ICU
Extubated to BiPAP
Repeat chest x-ray ABG in the a.m.
Past week resume diet
RV failure with evidence of neck pulmonary hypertension
Per cardiology will continue to monitor
Severe TR suspect improved with RV failure and volume overload improves however if clinically worsens may require VV ECMO
VHD
Mitral recently repaired
Cards consulted
Paroxysmal atrial fibrillation/flutter
Stop IV amiodarone per cardiology
Increase p.o. Amio to 200 mg 3 times daily
Add metoprolol extended release per cardiology
On eliquis
Monitor on telemetry
JAMES, resolved
Hyponatremia, suspected SIADH, resolved
Normocytic anemia in the setting of sepsis
Repeat CBC at 2 PM
Blood consent obtained
Type and cross completed
2 units of blood on hold to be given in the afternoon once 2 PM CBC back if less than 9 give 2 units per cardiology
Between each unit and at the end of the second unit give 20 mg IV Lasix
Diarrhea
C. difficile negative
Provide loperamide
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
Persistent right-sided weakness vision change and speech impairment
Continue PT/OT/speech
Breast CA
S/p bilateral mastectomies
Of current chemotherapy regimen due to hospitalization
Hypothyroidism
Continue levothyroxine
IMU
Anticipated Discharge: > 48 hours
Subjective/Interval History
-
Date of Service: October 23, 2024
seen and examined. no new complaintns. feeling better
Objective Data
-
Labs:
Laboratory Results
10/23/24 10/23/24
18:00
WBC 27.1 H
Hgb 11.0 L D
Hct 32.4 L
Plt Count 117 L
Sodium 139 Pending
Potassium 3.1 L Pending
Chloride 107 Pending
Carbon Dioxide 28 Pending
BUN 31 H Pending
Creatinine 1.0 Pending
Glucose 114 H Pending
Calcium 7.9 L Pending
Vital Signs:
Vital Signs
Temp Pulse Resp BP Pulse Ox
98.2 F 81 27 91/69 93
10/23/24 04:46 10/23/24 07:00 10/23/24 07:00 10/23/24 06:00 10/23/24 07:00
I&O
10/22/24 10/23/24 10/24/24
06:59 06:59 06:59
Intake Total 521.3 / 521.3 1519 / 1519
Output Total 948 / 948 1909
Balance -426.7 / -426.7 -391 / -391
--- NOTE | 2024-10-23 14:12 | W.PN.PUL3 ---
Today's Communication / Plan
-
Re-eval asked by cards for SOB
Now on 15L MF, can try HFNC, continue BIPAP at night
Repeat CXR
Continue diuresis per team
Consideration for RHC next week if not improving
Assessment
-
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
chemotherapy. Patient had Mediport removed and mitral valve repair performed by Dr. Brian in 07/2024. Patient was treated with IV antibiotic for endocarditis. 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
related to endocarditis and had been on anticoagulation. This admission, unfortunately patient presented again with acute renal failure along with Staph aureus bacteremia, methicillin sensitive with concern for mitral valve endocarditis. DONNELL and
echocardiogram reviewed suggestive of mitral valve vegetation with clinical concern for infected mitral valve. Patient had been on broad-spectrum antibiotics. 10/18, patient noted to have worsening shortness of breath with increasing oxygen
requirement and increasing work of breathing. Mannequin Mold Maker consult was placed, patient was emergently intubated and placed on mechanical ventilation.
Acute hypoxic respiratory failure with respiratory distress (intubated 10/18-extubated 10/20)
Shock, cardiogenic shock.
Pulmonary edema
MSSA bacteremia with mitral valve endocarditis, relapsed
JAMES
Leukocytosis
Hyponatremia, improved
Other medical diagnosis
Paroxysmal atrial flutter/fibrillation/SVT
Mild mitral regurgitation
History of breast cancer, had been on adjuvant chemotherapy, last received 07/2024
Hypothyroidism
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
Normocytic anemia
Anxiety
Essential (primary) hypertension
Hypercholesteremia
Obesity
Plan
Shock, cardiogenic shock-- Levophed weaned off, [place] in place. Cardiac index continues to be below 2
BNP noted to be above 19,000 and serial lactate has been improving
Echocardiogram and right heart cath showed elevated pulmonary capillary wedge pressure along with severe RV dysfunction
Has been on tube feeding, will transition to oral feeding now that she is extubated
Pulmonary edema suspect related to underlying valvular heart disease with decompensated heart failure. Considering elevated wedge pressure and improving chest x-ray post diuresis, unlikely ARDS, discontinued dexamethasone. No significant ET tube
secretions noted, infiltrates more likely volume overload rather than consolidation.
Paroxysmal atrial flutter/fibrillation-- Patient has been on p.o. amiodarone. Holding metoprolol in view of hypotension
Currently on heparin infusion. Await follow-up echo, if no intervention planned, will transition to Eliquis
Acute hypoxic respiratory failure with respiratory distress (intubated 10/18-extubated 10/20)
X-ray suggestive of pulmonary edema, patient was intubated on 10/18
Follow-up chest x-ray improving.
Extubated to BiPAP, 10/20--Can change BIPAP to nightly/PRN use
Now on 15L midflow, will change to HFNC
Check CXR
Advanced diet, tolerating
Aspiraiton precautions
MSSA bacteremia with mitral valve endocarditis, relapsed.
Prior history of MSSA [place] mitral valve endocarditis (felt to be related to med-port) s/p open radical mitral valve repair pair with annuloplasty in 08/17
Infectious disease service on case, antibiotic coverage was broadened for concern of pneumonia, now transition back to cefazolin.
Blood cultures over last 48 hours without any bacterial growth
Prior history of infective endocarditis with cardiac embolic CVA with left side vision loss.
JAMES on admission, resolved
Creat normal, diuresis on board now
Follow I/Os, daily weights
CBC stable, no signs of bleeding or coagulopathy.
Chronic anemia noted, Hb 8-10
DVT prophylaxis as assessed based on risk, including mechanical SCDs
Can transfuse if indicated for Hb <7, plt < 10
INR 3.18
No prior h/o diabetes
Monitor accuchecks PRN/SS coverage if needed
H/o hypothyroidism, can continue on home synthroid dose
Updated patient's at bedside.
Will follow
Data:
RHC 10/19/2024: 1. Severely elevated biventricular filling pressures, severe pre and postcapillary pulmonary hypertension, and reduced cardiac output with normal SVR on norepinephrine at 6.
2. Lavell of 0.79 suggesting severe RV dysfunction.
PA pressure 64/42, mean 51. Pulmonary capillary wedge pressure of 34. PVR 4.7. RA pressure 28 mm.
CXR 09/2024: Diffuse increased interstitial opacity with some small areas of confluent airspace opacity, probably interstitial and alveolar edema. Minimal bilateral effusions.
DONNELL 09/2024: 1. Normal left ventricular size, wall thickness and systolic function. No regional wall motion abnormalities are seen. 2. Ejection fraction is 55-60% by visual assessment.
3. Adjacent or possibly arising from the ring near the posterior leaflet, there is a mobile echogenic mass (0.74cm x 1.23cm). No significant regurgitation. Mitral valve gradient pk/mean 12/5mmHg.
4. Compared to the Intraop DONNELL report from 08/10/24, the finding associated with the mitral valve reported is in similar location. Measurements differ a bit (0.7x0.6cm on the prior), but I cannot visualize for complete comparison.
Total time spent on this consultation/encounter __50__ minutes which includes review of history, physical exam, medications, laboratory data, personal review of imaging, extensive review of outpatient records, discussion with care team and
respiratory therapy.
Subjective Data
-
Date of Service:
Date of Service: October 23, 2024
Chief Complaint: Pulmonary Follow Up
Subjective:
Asked for re-eval, remains SOB
Now on 15L midflow with sats 90-91%
BIPAP ongoing at night
Objective Data
Data Reviewed
Vital Signs / I&O / Oxygen:
Vital Signs
Temp Pulse Resp BP Pulse Ox
98.2 F 81 27 91/69 93
08/31/25 04:46 10/23/24 07:00 10/23/24 07:00 10/23/24 06:00 10/23/24 07:00
Intake and Output
10/22/24 10/23/24 10/24/24
06:59 06:59 06:59
Intake Total 521.3 / 521.3 1519 / 1519
Output Total 948 / 948 1910 / 1910
Balance -426.7 / -426.7 -391 / -391
SaO2 [CPAP/PSV] 99
SaO2 [A/C] 98
SaO2 93
Nasal Cannula flow liters per 15
minute
Labs/Micro/Reports
Lab Data
10/23/24 08:31
Microbiology
10/22/24 18:12 Feces/Stool C. difficile GDH Antigen & Toxins - Final
Negative for toxigenic C.difficile
10/20/24 05:11 Blood/Venous Blood Culture - Preliminary
No Growth in 72 hours- Final report to follow
10/18/24 04:44 Blood/Venous Blood Culture - Final
No Growth - Final Report
10/21/24 04:37 Blood/Venous Blood Culture - Preliminary
No Growth in 48 hours- Final report to follow
10/19/24 03:41 Blood/Venous Blood Culture - Preliminary
No Growth in 4 days- Final report to follow
10/17/24 04:14 Blood/Venous Blood Culture - Final
No Growth - Final Report
10/14/24 10:11 Blood/Venous Blood Culture - Final
S aureus-Methicillin Sensitive
10/14/24 10:11 Blood/Venous Gram Stain - Final
10/19/24 11:30 Sputum Respiratory Culture - Final
NO GROWTH
10/19/24 11:30 Sputum Gram Stain - Final
10/16/24 02:18 Blood/Venous Blood Culture - Final
No Growth - Final Report
[2024-10-23] MEDS: ATIVAN 0.5 MG PO ×2 (17:26→22:56)
[2024-10-23 17:58] LABS: Glucose - Point of Care 117 mg/dl (70-99)
--- NOTE | 2024-10-23 18:03 | PTCARENOTE ---
Received on 15L midflow this am, Sao2 88-92%. RR 22-28, Repositioned as documented throughout the day. Encouraged IS - demonstrates well. BLACKWELL and at rest talking. Orders received to increase to HFO2- d/w RT and placed up to 50L / 80% to maintain
parameters. Complaining of increased difficulty breathing this pm, sao2 86-89%- RT called and came. Repositioned and requested/ received extra dose po Ativan. Currently sao2 95%, RR 24.
Purewick intact today for resp. difficulty/ diuresing- >2000L output this shift. K+ repletion as documented. SCDs intact.
[2024-10-23 19:19] LABS: Blood Urea Nitrogen 28 mg/dl (7-17); Calcium 8.0 mg/dl (8.4-10.2); Carbon Dioxide 29 mmol/L (22-30); Chloride 104 mmol/L (98-107); Estimated Creatinine Clearance 59 ml/min; Glucose 115 mg/dl (70-99); Potassium 3.6 mmol/L (3.5-5.1); Sodium 135 mmol/L (135-145); eGFR > 60.00
--- NOTE | 2024-10-23 19:35 | PTCARENOTE ---
Purewick removed for redness in lisa area- cleansed and calazime placed. Incontinent of large amt stool and urine- whole bed changed.
[2024-10-23] MEDS: CALCIUM GLUCONATE 130 MG IV (20:53)
[2024-10-23 21:28] LABS: Glucose - Point of Care 136 mg/dl (70-99)
[2024-10-24] VITALS (15 sets, daily range): BP systolic 90–124; BP diastolic 44–84; PULSE 2–90; BMI 29.1
[2024-10-24] MEDS: ANCEF 10 IV ×3 (05:41→21:33)
[2024-10-24] MEDS: SYNTHROID 50 MCG PO (05:53)
[2024-10-24 06:16] LABS: Hematocrit 32.9 % (37.0-47.0); Hemoglobin 11.0 g/dL (12.0-16.0); Mean Corp Hgb Conc. 33.4 g/dL (33.0-37.0); Mean Corpuscular Volume 90.6 fL (81.0-99.0); Platelet Count 99 10^3/uL (130-400); Red Cell Dist. Width 17.1 % (11.5-14.5)
[2024-10-24 06:35] LABS: Blood Urea Nitrogen 26 mg/dl (7-17); Calcium 8.3 mg/dl (8.4-10.2); Carbon Dioxide 29 mmol/L (22-30); Chloride 106 mmol/L (98-107); Estimated Creatinine Clearance 58 ml/min; Glucose 107 mg/dl (70-99); Magnesium 1.7 mg/dl (1.6-2.3); Potassium 3.4 mmol/L (3.5-5.1); Sodium 139 mmol/L (135-145); eGFR > 60.00
--- NOTE | 2024-10-24 07:50 | W.PN.HOSP.TC ---
Today's Communication/Plan
-
cont BIPAP, wean as tolerated
Diuresis as per Cardio
cont abx as per ID
Replete Electrolytes
Assessment / Plan
Assessment / Plan
Physical Exam
General: dyspneic on high flow
HEENT: Normocephalic and Atraumatic
Respiratory: clear to auscultation b/l, accessory muscles of respiration noted on high flow, conversational dyspnea
Cardiac: Regular Rhythm and Tachycardic
GI: Soft, Nontender and Nondistended
Musculoskeletal: No Clubbing
Skin: Warm and Dry
Neuro: Lethargic but arousable conversant coherent
64F Breast Ca afib HTN HLD Hypothyroidism Hx CVA Mitral Repair here for evaluation treatment shock and acute hypoxemic respiratory failure.
Shock initially secondary to septic shock in the setting of MSSA bacteremia and endocarditis, later possible cardiogenic shock versus medication induced shock related to propofol or rapid sequence intubation agents
Off pressor support, continue midodrine
Continue IV cefazolin
Blood cultures neg since 10/16
Infectious disease eval appreciated Continue cefazolin 2g IV q8h x 6 weeks, then chronic suppressive therapy
Cardiology eval appreciated cont PO Lasix 40 mg BID
Acute hypoxemic respiratory failure admitted to ICU
Extubated to BiPAP and downgraded to IMU
Oxygen status remains tenuous 10/24 requiring High Flow switched to continuous BIPAP
Possible benefit NIV vs re-intubation as per Pulm if patient does not improve on BIPAP
Paroxysmal atrial fibrillation/flutter
Cont Eliquis
Amiodarone 400 mg BID as per Cardio
JAMES, resolved
Hyponatremia, suspected SIADH, resolved
Normocytic anemia in the setting of sepsis
since improved with 2PRBC
H&H remains stable since transfusion
Diarrhea
C. difficile negative
Provide loperamide
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
Persistent right-sided weakness vision change and speech impairment
PT/OT appreciated SNF rehab
speech eval appreciated
Breast CA
S/p bilateral mastectomies
OfF current chemotherapy regimen due to hospitalization
Hypothyroidism
Continue levothyroxine
DVT ppx Eliquis
Full Code
I spent a total of 60 minutes with the patient or on the floor. More than 50% of this time involved counseling and coordination of care.
Anticipated Discharge: > 48 hours
Subjective/Interval History
-
Date of Service: October 24, 2024
Dyspneic on high flow saturating low 90s high 80s. Accessory muscle respirations noted.
Objective Data
-
Labs:
Laboratory Results
10/24/24
05:56
WBC 25.1 H
Hgb 11.0 L
Hct 32.9 L
Plt Count 99 L
Sodium 139
Potassium 3.4 L
Chloride 106
Carbon Dioxide 29
BUN 26 H
Creatinine 0.9
Glucose 107 H
Calcium 8.3 L
Vital Signs:
Vital Signs
Temp Pulse Resp BP Pulse Ox
97.5 F 91 22 95/69 92
10/24/24 02:09 10/24/24 05:00 10/24/24 05:00 10/24/24 04:00 10/24/24 07:40
I&O
10/23/24 10/24/24 10/25/24
06:59 06:59 06:59
Intake Total 1519 / 1519 1000 / 1000
Output Total 1909 / 1909 2700 / 2700
Balance -391 / -391 -1700 / -1700
[2024-10-24 08:09] LABS: Glucose - Point of Care 101 mg/dl (70-99)
[2024-10-24] MEDS: CALCIUM GLUCONATE 130 MG IV (08:13)
[2024-10-24] MEDS: KCL 40 MEQ PO ×2 (08:14→21:40)
[2024-10-24] MEDS: LASIX 40 MG PO ×2 (08:14→17:14)
[2024-10-24] MEDS: ELIQUIS 5 MG PO ×2 (08:14→21:40)
[2024-10-24] MEDS: PACERONE 400 MG PO ×2 (08:14→21:40)
--- NOTE | 2024-10-24 09:17 | W.PN.ID1 ---
Date of Service
Date of Service: October 24, 2024
Today's Communication
Continue antibiotics
Assessment / Plan
# Relapse of complicated MSSA bacteremia/IE
. Blood cx x 4 MSSA
. 10/16 and onward blood cx's neg to date.
# Infective endocarditis of recent MV repair
. 10/07 outpt ODNNELL: mobile echogenic mass (0.74cm x 1.23cm) arising from adjacent or from annuloplasty ring MV
# s/p Acute hypoxemic respiratory failure (onset 10/16), intubated 10/18. Extubated 10/20.
# s/p Cardiogenic shock
. 10/18 [facility] Cardiac cath: severe RV dysfunction, pulm HTN,, reduced cardiac output, normal SVR
# fever - resolved
# leukocytosis, trending up.
# Afib with RVR
# JAMES
# Allergy to PCN, cephalosporin, cipro, sulfa; tolerated cefazolin challenge on 10/14
# Recent history of MSSA [place] mitral valve IE, [employer] septic emboli with left vision loss
. 08/10/24 s/p open radical mitral valve repair debridement of annulus, patch repair, annuloplasty with 30 mm band
. Completed IV Vancomycin ([employer]SI[employer] penetration) through 09/21/24 (6 weeks from MV repair)
Plan:
- Sputum cx neg.
- 10/16 C. diff neg.
- Leukocytosis ongoing.
Repeat C. diff negative.
Right IJ discontinued 10/22/2024
- Continue cefazolin 2g IV q8h x 6 weeks, then chronic suppressive therapy
- Trend wbc
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
Cardio-embolic CVA with left vision loss
Right breast cancer status post lumpectomy, was on adjuvant chemo, last received 08/01/24
Hypertension
Hypothyroidism
Atrial fib
Anxiety
Left Parotid gland tumor excision 2024
Port placement -> dc'd 08/17
Cholecystectomy
Hysterectomy
Finger tumor radical resection 1985
Sacrocolpopexy
Chief Complaint
-: Bacteremia
Subjective / Review of Systems
Patient seen and examined. O2 requirements have increased since yesterday; patient now on high flow O2
Review of Systems: No Fever and No Chills
Vital Signs / Physical Exam
Vital Signs
Vital Signs
Temp Pulse Resp BP Pulse Ox
97.5 F 91 22 95/69 92
10/24/24 02:09 10/24/24 05:00 10/24/24 05:00 10/24/24 04:00 10/24/24 07:40
Physical Exam
Constitutional: Comfortable
Eyes: Sclera Anicteric
Cardiovascular: S1/S2 (tachycardic)
Pulmonary: Rales (bases)
Gastrointestinal: Non Tender and Non Distended
Extremities: Edema
Skin: Negative Rash
Neurological: AO x 3
Objective Data
Lab Data
Lab Results
10/24/24 05:56
10/24/24 05:56
PT 32.5 Sec (11.4-14.6) H 10/18/24 21:01
INR 3.18 10/18/24 21:01
APTT 97.4 Sec (23.4-35.0) H 10/21/24 04:21
Estimated Creat Clear 58 ml/min 10/24/24 05:56
Lactic Acid 1.9 mmol/L (0.7-2.0) 10/20/24 11:15
Total Bilirubin 0.7 mg/dl (0.2-1.3) 10/21/24 04:21
AST 38 U/L (14-36) H 10/21/24 04:21
ALT 18 U/L (0-35) 10/21/24 04:21
Alkaline Phosphatase 102 U/L (38-126) 10/21/24 04:21
Most recent labs reviewed.
Micro Results:
10/20/24 05:11 Blood Culture - Preliminary
Blood/Venous No Growth in 4 days- Final report to follow
10/21/24 04:37 Blood Culture - Preliminary
Blood/Venous No Growth in 72 hours- Final report to follow
10/19/24 03:41 Blood Culture - Final
Blood/Venous No Growth - Final Report
10/22/24 18:12 C. difficile GDH Antigen & Toxins - Final
Feces/Stool Negative for toxigenic C.difficile
10/18/24 04:44 Blood Culture - Final
Blood/Venous No Growth - Final Report
10/17/24 04:14 Blood Culture - Final
Blood/Venous No Growth - Final Report
10/14/24 10:11 Blood Culture - Final
Blood/Venous S aureus-Methicillin Sensitive
Gram Stain - Final
10/19/24 11:30 Respiratory Culture - Final
Sputum NO GROWTH
Gram Stain - Final
10/16/24 02:18 Blood Culture - Final
Blood/Venous No Growth - Final Report
10/14/24 10:11 Blood Culture - Final
Blood/Venous S aureus-Methicillin Sensitive
Gram Stain - Final
10/16/24 21:50 C. difficile GDH Antigen & Toxins - Final
Feces/Stool Negative for toxigenic C.difficile
10/13/24 17:09 Blood Culture - Final
Blood/Venous S aureus-Methicillin Sensitive
Gram Stain - Final
10/13/24 16:07 Blood Culture - Final
Blood/Venous S aureus-Methicillin Sensitive
Gram Stain - Final
10/13/24 18:35 Urine Culture - Final
Urine NO GROWTH
10/13/24 17:09 Influenza Types A & B (DAHLIA) - Final
Nasal Swab Negative for Influenza A & B, NAAT
Negative results must be combined with clinical observations
and patient history.
Nucleic Acid Amplification test (NAAT)performed on the
[employer] platform.
10/19/24 CXR: Redemonstration of low lung volumes with diffusely increased interstitial and patchy alveolar opacities bilaterally. Alveolar consolidation within the lung bases has improved. No significant pleural effusion or pneumothorax.
10/16/24 CXR: There are new patchy airspace opacities throughout the right lung which likely represent multifocal pneumonia, less likely asymmetric edema
10/13/24 CXR: No acute cardiopulmonary process.
10/07/24 DONNELL: Adjacent or possibly arising from the ring near the posterior leaflet, there is a mobile echogenic mass (0.74cm x 1.23cm). No signficant regurgitation. Mitral valve gradient pk/mean 12/5mmHg.
Compared to the Intraop DONNELL report from 08/10/24, the finding associated with the mitral valve reported is in similar location. Measurements differ a bit (0.7x0.6cm on the prior)
[2024-10-24] MEDS: MAGNESIUM SULFATE 50 IV (10:17)
--- NOTE | 2024-10-24 10:34 | W.PN.PUL3 ---
Today's Communication / Plan
-
HFNC ongoing, but she had refused BIPAP for about 24 hours
CXR similar to prior
WOB is noted, she would want to be reintubated if needed
Try BIPAP now and at night, continuously
If not working, can try NIV -- reviewed with care team and RT
Continue diuresis as tolerated
Assessment
-
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
chemotherapy. Patient had Mediport removed and mitral valve repair performed by Dr. Brian in 07/2024. Patient was treated with IV antibiotic for endocarditis. 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
related to endocarditis and had been on anticoagulation. This admission, unfortunately patient presented again with acute renal failure along with Staph aureus bacteremia, methicillin sensitive with concern for mitral valve endocarditis. DONNELL and
echocardiogram reviewed suggestive of mitral valve vegetation with clinical concern for infected mitral valve. Patient had been on broad-spectrum antibiotics. 10/18, patient noted to have worsening shortness of breath with increasing oxygen
requirement and increasing work of breathing. Service Order Expediter consult was placed, patient was emergently intubated and placed on mechanical ventilation.
Acute hypoxic respiratory failure with respiratory distress (intubated 10/18-extubated 10/20)
Shock, cardiogenic shock.
Pulmonary edema
MSSA bacteremia with mitral valve endocarditis, relapsed
JAMES
Leukocytosis
Hyponatremia, improved
Other medical diagnosis
Paroxysmal atrial flutter/fibrillation/SVT
Mild mitral regurgitation
History of breast cancer, had been on adjuvant chemotherapy, last received 07/2024
Hypothyroidism
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
Normocytic anemia
Anxiety
Essential (primary) hypertension
Hypercholesteremia
Obesity
Plan
Shock, cardiogenic shock-- Levophed weaned off
BNP noted to be above 19,000 and serial lactate has been improving
Echocardiogram and right heart cath showed elevated pulmonary capillary wedge pressure along with severe RV dysfunction
Diuresis ongoing per team
Planning for possible RHC in AM
Paroxysmal atrial flutter/fibrillation-- Patient has been on p.o. amiodarone.
Holding metoprolol in view of hypotension
Resumed on eliquis
Acute hypoxic respiratory failure with respiratory distress (intubated 10/18-extubated 10/20)
X-ray suggestive of pulmonary edema, patient was intubated on 10/18
Follow-up chest x-ray improving.
Extubated to BiPAP, 10/20--Can change BIPAP to nightly/PRN use
Now on 15L midflow, will change to HFNC
Check CXR --remains similar
Had refused BIPAP overnight, more dyspneic she is now agreeable to resuming
NIV if needed
She would want to be intubated again if she were to decompensate
Advanced diet, tolerating
Aspiration precautions
MSSA bacteremia with mitral valve endocarditis, relapsed.
Prior history of MSSA hopi mitral valve endocarditis (felt to be related to med-port) s/p open radical mitral valve repair pair with annuloplasty in 08/17
Infectious disease service on case, antibiotic coverage was broadened for concern of pneumonia, now transition back to cefazolin.
Blood cultures over last 48 hours without any bacterial growth
Prior history of infective endocarditis with cardiac embolic CVA with left side vision loss.
JAMES on admission, resolved
Creat normal, diuresis on board now
Follow I/Os, daily weights
CBC stable, no signs of bleeding or coagulopathy.
Chronic anemia noted, Hb 8-10
DVT prophylaxis as assessed based on risk, including mechanical SCDs
Can transfuse if indicated for Hb <7, plt < 10
INR 3.18
No prior h/o diabetes
Monitor accuchecks PRN/SS coverage if needed
H/o hypothyroidism, can continue on home synthroid dose
Updated patient's at bedside.
We had a long discussion regarding reintubation, and she states she would want to do that even if that meant prolongation on the vent and potential tracheostomy
Data:
RHC 10/19/2024: 1. Severely elevated biventricular filling pressures, severe pre and postcapillary pulmonary hypertension, and reduced cardiac output with normal SVR on norepinephrine at 6.
2. Lavell of 0.79 suggesting severe RV dysfunction.
PA pressure 64/42, mean 51. Pulmonary capillary wedge pressure of 34. PVR 4.7. RA pressure 28 mm.
CXR 09/2024: Diffuse increased interstitial opacity with some small areas of confluent airspace opacity, probably interstitial and alveolar edema. Minimal bilateral effusions.
DONNELL 09/2024: 1. Normal left ventricular size, wall thickness and systolic function. No regional wall motion abnormalities are seen. 2. Ejection fraction is 55-60% by visual assessment.
3. Adjacent or possibly arising from the ring near the posterior leaflet, there is a mobile echogenic mass (0.74cm x 1.23cm). No significant regurgitation. Mitral valve gradient pk/mean 12/5mmHg.
4. Compared to the Intraop DONNELL report from 08/10/24, the finding associated with the mitral valve reported is in similar location. Measurements differ a bit (0.7x0.6cm on the prior), but I cannot visualize for complete comparison.
Total time spent on this consultation/encounter __50__ minutes which includes review of history, physical exam, medications, laboratory data, personal review of imaging, extensive review of outpatient records, discussion with care team and
respiratory therapy.
Subjective Data
-
Date of Service:
Date of Service: October 24, 2024
Chief Complaint: Pulmonary Follow Up
Subjective:
dyspneic, on hfnc
refused bipap overnight
Objective Data
Data Reviewed
Vital Signs / I&O / Oxygen:
Vital Signs
Temp Pulse Resp BP Pulse Ox
97.3 F 91 22 95/69 92
10/24/24 08:05 10/24/24 05:00 10/24/24 05:00 10/24/24 04:00 10/24/24 07:40
Intake and Output
10/23/24 10/24/24 10/25/24
06:59 06:59 06:59
Intake Total 1519 / 1519 1000 / 1000
Output Total 1910 / 1910 2700 / 2700
Balance -391 / -391 -1700 / -1700
SaO2 [CPAP/PSV] 99
SaO2 [A/C] 98
SaO2 92
Nasal Cannula flow liters per 50
minute
Physical Exam
General: Respiratory Distress (mild-moderate) and Other (remains on HFNC)
HEENT: Normocephalic, Anicteric and Moist Mucous Membranes
Cardiovascular: S1-S2 and Regular Rhythm
Respiratory: Crackles and Non-Labored Respirations
GI: Soft, Non Distended and Non Tender
Neurology: Awake, Alert, Oriented and No Motor Deficits
Skin: Warm and Dry
Labs/Micro/Reports
Lab Data
10/24/24 05:56
10/24/24 05:56
Microbiology
10/20/24 05:11 Blood/Venous Blood Culture - Preliminary
No Growth in 4 days- Final report to follow
10/21/24 04:37 Blood/Venous Blood Culture - Preliminary
No Growth in 72 hours- Final report to follow
10/19/24 03:41 Blood/Venous Blood Culture - Final
No Growth - Final Report
10/22/24 18:12 Feces/Stool C. difficile GDH Antigen & Toxins - Final
Negative for toxigenic C.difficile
10/18/24 04:44 Blood/Venous Blood Culture - Final
No Growth - Final Report
10/17/24 04:14 Blood/Venous Blood Culture - Final
No Growth - Final Report
10/14/24 10:11 Blood/Venous Blood Culture - Final
S aureus-Methicillin Sensitive
10/14/24 10:11 Blood/Venous Gram Stain - Final
10/19/24 11:30 Sputum Respiratory Culture - Final
NO GROWTH
10/19/24 11:30 Sputum Gram Stain - Final
[2024-10-24 11:25] LABS: Glucose - Point of Care 117 mg/dl (70-99)
--- NOTE | 2024-10-24 12:25 | W.PN.CD ---
Today's Communication / Plan
-
Patient with borderline sats on high flow O2. Diffuse process on x-ray.
Agree with transfer to ICU
Await additional input from pulmonary. Additional optimization of respiratory status as directed by pulmonary
Can continue with diuretic with close monitoring of blood pressures
Repeat chest x-ray. Issues reviewed with hospitalist at bedside
Impression / Plan
-
64 y/o female with PSVT, HTN and BRCA on chemotherapy admitted in July 2024 with complicated MSSA sepsis/bacteremia related to port tip and [place] mitral valve endocarditis s/p radical mitral valve repair (Brian, 08/10/24) subsequently complicated by
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 Presents with staph aureus bacteremia and concern for MV vegetation, hypoxic respiratory, and mixed septic cardiogenic shock. Now extubated with improving shock and
negative cultures over 48 hours on abx.
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
Respiratory insufficiency/respiratory failure.
-Patient with borderline sats 89-90 on high flow
- Last CXR still with evidence of diffuse lung process
- Blood cultures sill negative
- decreased breath sounds right base some fine crackles heard more notable on right
- Tenuous respiratory status agree with transfer to ICU additional input from pulmonary. Additional attempts at diuretics. And would update chest x-ray
Anemia
- Continue to monitor and assess need for additional PRBCs.
Shock, mixed etiology, much improved => PA catheter is out
Recurrent complicated MSSA bacteremia, strongly suspect infection of the MV and the MV repair material
- Reoperation of the MV at this acute time with a 50% operative mortality and cultures have cleared and the repair on echo is holding up => no surgery. Agree with CT Surgery
- IV ATBs planned for 6 weeks and CHRONIC INDEFINITE SUPPRESSIVE ATBS to follow
RV dysfunction likely multifactorial,. the improved PASP and and tricuspid regurgitation
- Follow with serial echo
.
Tricuspid regurgitation was severe on first echo this admission but then follow-up was reported to be moderate
Heart failure (HFpEF)
- Weights are down 6 kg compared to when patient had right heart cath on 10/18 and wedge pressure was elevated at 34.
- Considering current respiratory status can try additional diuretics but will need to monitor pressures closely.
Paroxysmal atrial fibrillation/typical flutter
- Rate: was 2:1 flutter for several days =>broke to NSR w/o bradycardia this AM 10/22/2024 at 1250 hrs, I good sign that she is improving
- Rhythm: Has been paroxysmal, currently in sinus continue to monitor.
- Anticoagulation: Back on Eliquis
JAMES, resolved
Subjective: Tenuous respiratory status on high flow O2
Physical Exam
Vital Signs/Labs
Vital Signs
Temp Pulse Resp BP Pulse Ox
97.3 F 93 30 111/84 92
10/24/24 08:05 10/24/24 10:00 10/24/24 10:00 10/24/24 10:00 10/24/24 11:01
10/23/24 10/24/24 10/25/24
06:59 06:59 06:59
Actual Weight 75.1 kg 72.1 kg
10/24/24 05:56
10/24/24 05:56
PT 32.5 Sec (11.4-14.6) H 10/18/24 21:01
INR 3.18 10/18/24 21:01
APTT 97.4 Sec (23.4-35.0) H 10/21/24 04:21
Magnesium 1.7 mg/dl (1.6-2.3) 10/24/24 05:56
Triglycerides 191 mg/dl (10-149) H 10/20/24 05:11
10/18/24
11:13
[id number] Pept 51480
Physical Exam
Constitutional: No acute distress
Cardiovascular: Rhythm & rate is regular
Respiratory: Other (Wheeze absent decreased breath sounds right base with some fine crackles)
GI: Soft
Neuro/Psych: Alert
Data Reviewed
-
Date of Service: October 24, 2024
Medical Decision Making: Reviewed Test Results
EKG: Other (Telemetry normal sinus rhythm)
Medical Tests (PFT, Pathology etc): Report Reviewed by me
Labs: Labs Reviewed by me
--- NOTE | 2024-10-24 19:16 | PTCARENOTE ---
Received on HFO2 then transitioned to bipap this pm. RT educated family on effects on removing for drinks etc... family requesting again for pt to get a drink. POx drops when removed even for 30 sec to 77-80% - slow recovery back to 91 up as high
93%. SR on tele, PO Lasix twice today- fluids greatly limited d/t resp status. Purewick intact lisa area pink and intact. Family very worried about nutrition status- nutrition consult placed.
[2024-10-24] MEDS: KCL 20 MEQ PO (21:40)
[2024-10-25] VITALS (34 sets, daily range): BP systolic 85–153; BP diastolic 15–95; PULSE 2–92; BMI 29.2
[2024-10-25] MEDS: SYNTHROID 50 MCG PO (04:53)
[2024-10-25] MEDS: ANCEF 10 IV ×2 (04:53→14:18)
[2024-10-25 05:26] LABS: Hematocrit 30.6 % (37.0-47.0); Hemoglobin 10.3 g/dL (12.0-16.0); Mean Corp Hgb Conc. 33.7 g/dL (33.0-37.0); Mean Corpuscular Volume 90.8 fL (81.0-99.0); Platelet Count 106 10^3/uL (130-400); Red Cell Dist. Width 16.9 % (11.5-14.5)
--- NOTE | 2024-10-25 05:31 | PTCARENOTE ---
patient on bipap all night. patient frequently asking for sips of water, this rn and respiratory therapist educating on importance of keeping bipap on. patient did get sips of water periodically throughout the shift. assessment and vital signs as
charted. call lopez in reach.
[2024-10-25 05:50] LABS: Blood Urea Nitrogen 29 mg/dl (7-17); Calcium 8.7 mg/dl (8.4-10.2); Carbon Dioxide 32 mmol/L (22-30); Chloride 103 mmol/L (98-107); Estimated Creatinine Clearance 58 ml/min; Glucose 122 mg/dl (70-99); Magnesium 2.0 mg/dl (1.6-2.3); Potassium 3.2 mmol/L (3.5-5.1); Sodium 139 mmol/L (135-145); eGFR > 60.00
--- NOTE | 2024-10-25 08:36 | W.PN.HOSP.TC ---
Today's Communication/Plan
-
transfer to [place] ICU higher level of care accepting physician Dr Meagan Gore.
Assessment / Plan
Assessment / Plan
Physical Exam
General: dyspneic on high flow
HEENT: Normocephalic and Atraumatic
Respiratory: clear to auscultation b/l, accessory muscles of respiration noted on high flow, conversational dyspnea
Cardiac: Regular Rhythm and Tachycardic
GI: Soft, Nontender and Nondistended
Musculoskeletal: No Clubbing
Skin: Warm and Dry
Neuro: Lethargic but arousable conversant coherent
64F Breast Ca afib HTN HLD Hypothyroidism Hx CVA Mitral Repair here for evaluation treatment shock and acute hypoxemic respiratory failure.
Shock initially secondary to septic shock in the setting of MSSA bacteremia and endocarditis, later possible cardiogenic shock versus medication induced shock related to propofol or rapid sequence intubation agents
Off pressor support, continue midodrine
Continue IV cefazolin
Blood cultures neg since 10/16
Infectious disease eval appreciated Continue cefazolin 2g IV q8h x 6 weeks, then chronic suppressive therapy
Cardiology eval appreciated
Acute hypoxemic respiratory failure admitted to ICU
Extubated to BiPAP and downgraded to IMU
Oxygen status remains tenuous 10/24 requiring High Flow switched to continuous BIPAP
Possible benefit NIV vs re-intubation as per Pulm if patient does not improve on BIPAP
10/25 patients respiratory status remains poor with increased work of breathing requiring high flow/bipap, remains conversant coherent throughout but concern patient may require re-intubation high, transferred to ICU closer monitoring post cath.
Following interdisciplinary discussion with CTS, Cardio, Ssis Etl Developer, there was noted concern Mitral valve dysfunction may be significantly worse than appears on imaging, patient potentially needing valve intervention, requires higher level of care
than available here given high risk complication, patient was subsequently transferred to [place] ICU, accepting physician Dr Meagan Gore.
Paroxysmal atrial fibrillation/flutter
Cont Eliquis
Amiodarone 400 mg BID as per Cardio
JAMES, resolved
Hyponatremia, suspected SIADH, resolved
Normocytic anemia in the setting of sepsis
since improved with 2PRBC
H&H remains stable since transfusion
Diarrhea
C. difficile negative
Provide loperamide
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
Persistent right-sided weakness vision change and speech impairment
PT/OT appreciated SNF rehab
speech eval appreciated
Breast CA
S/p bilateral mastectomies
OfF current chemotherapy regimen due to hospitalization
Hypothyroidism
Continue levothyroxine
DVT ppx Eliquis
Full Code
Total Critical Care Time__50___ minutes. I was immediately available to the patient and staff. I personally examined, reviewed labs, diagnostic images/reports, interpretations, treatment plans, discussed patient care with other providers and
family or caregivers (if patient is unable to make decisions), entered orders as appropriate and documented the medical record.
Anticipated Discharge: Today
Subjective/Interval History
-
Date of Service: October 25, 2024
Continues to require High Flow/BIPAP. Respiratory status/work of breathing remains essentially the same. Conversant coherent.
Objective Data
-
Labs:
Laboratory Results
10/25/24
05:07
WBC 28.3 H
Hgb 10.3 L
Hct 30.6 L
Plt Count 106 L
Sodium 139
Potassium 3.2 L
Chloride 103
Carbon Dioxide 32 H
BUN 29 H
Creatinine 0.9
Glucose 122 H
Calcium 8.7
Vital Signs:
Vital Signs
Temp Pulse Resp BP Pulse Ox
97.1 F 84 30 90/65 92
10/25/24 07:26 10/25/24 06:00 10/25/24 06:00 10/25/24 06:00 10/25/24 05:00
I&O
10/24/24 10/25/24 10/26/24
06:59 06:59 06:59
Intake Total 1000 / 1000 500 / 500
Output Total 2700 / 2700 1200 / 1200
Balance -1700 / -1700 -700 / -700
--- NOTE | 2024-10-25 09:19 | W.PN.ID1 ---
Date of Service
Date of Service: October 25, 2024
Today's Communication
Continue cefazolin.
Follow wbc.
Assessment / Plan
# Relapse of complicated MSSA bacteremia/IE
. Blood cx x 4 MSSA
. 10/16 and onward blood cx's neg to date.
# Infective endocarditis of recent MV repair
. 10/07 outpt DONNELL: mobile echogenic mass (0.74cm x 1.23cm) arising from adjacent or from annuloplasty ring MV
# s/p Acute hypoxemic respiratory failure (onset 10/16), intubated 10/18. Extubated 10/20.
# s/p Cardiogenic shock
. 10/18 RHC Cardiac cath: severe RV dysfunction, pulm HTN,, reduced cardiac output, normal SVR
# fever - resolved
# leukocytosis
# Afib with RVR
# JAMES
# Allergy to PCN, cephalosporin, cipro, sulfa; tolerated cefazolin challenge on 10/14
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
. 08/10/24 s/p open radical mitral valve repair debridement of annulus, patch repair, annuloplasty with 30 mm band
. Completed IV Vancomycin (GREEN TI[employer] INSPECTOR penetration) through 09/21/24 (6 weeks from MV repair)
Plan:
- Sputum cx neg.
- C. diff neg x 2
- Leukocytosis ongoing, unclear source
- Continue cefazolin 2g IV q8h x 6 weeks through 11/26/24 then chronic suppressive therapy with po cephalexin.
- Trend wbc
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
Cardio-embolic CVA with left vision loss
Right breast cancer status post lumpectomy, was on adjuvant chemo, last received 08/01/24
Hypertension
Hypothyroidism
Atrial fib
Anxiety
Left Parotid gland tumor excision 2024
Port placement -> dc'd 08/17
Cholecystectomy
Hysterectomy
Finger tumor radical resection 1985
Sacrocolpopexy
Chief Complaint
-: Bacteremia
Subjective / Review of Systems
Doing better.
Vital Signs / Physical Exam
Vital Signs
Vital Signs
Temp Pulse Resp BP Pulse Ox
97.1 F 84 30 90/65 92
10/25/24 07:26 10/25/24 06:00 10/25/24 06:00 10/25/24 06:00 10/25/24 05:00
Physical Exam
Constitutional: Comfortable
Eyes: Sclera Anicteric
Cardiovascular: S1/S2 (tachycardic)
Pulmonary: Rales (bases)
Gastrointestinal: Non Tender and Non Distended
Extremities: Edema
Skin: Negative Rash
Neurological: AO x 3
Objective Data
Lab Data
Lab Results
10/25/24 05:07
10/25/24 05:07
PT 32.5 Sec (11.4-14.6) H 10/18/24 21:01
INR 3.18 10/18/24 21:01
APTT 97.4 Sec (23.4-35.0) H 10/21/24 04:21
Estimated Creat Clear 58 ml/min 10/25/24 05:07
Lactic Acid 1.9 mmol/L (0.7-2.0) 10/20/24 11:15
Total Bilirubin 0.7 mg/dl (0.2-1.3) 10/21/24 04:21
AST 38 U/L (14-36) H 10/21/24 04:21
ALT 18 U/L (0-35) 10/21/24 04:21
Alkaline Phosphatase 102 U/L (38-126) 10/21/24 04:21
Most recent labs reviewed.
Micro Results:
10/20/24 05:11 Blood Culture - Final
Blood/Venous No Growth - Final Report
10/21/24 04:37 Blood Culture - Preliminary
Blood/Venous No Growth in 4 days- Final report to follow
10/19/24 03:41 Blood Culture - Final
Blood/Venous No Growth - Final Report
10/22/24 18:12 C. difficile GDH Antigen & Toxins - Final
Feces/Stool Negative for toxigenic C.difficile
10/18/24 04:44 Blood Culture - Final
Blood/Venous No Growth - Final Report
10/17/24 04:14 Blood Culture - Final
Blood/Venous No Growth - Final Report
10/14/24 10:11 Blood Culture - Final
Blood/Venous S aureus-Methicillin Sensitive
Gram Stain - Final
10/19/24 11:30 Respiratory Culture - Final
Sputum NO GROWTH
Gram Stain - Final
10/16/24 02:18 Blood Culture - Final
Blood/Venous No Growth - Final Report
10/14/24 10:11 Blood Culture - Final
Blood/Venous S aureus-Methicillin Sensitive
Gram Stain - Final
10/16/24 21:50 C. difficile GDH Antigen & Toxins - Final
Feces/Stool Negative for toxigenic C.difficile
10/13/24 17:09 Blood Culture - Final
Blood/Venous S aureus-Methicillin Sensitive
Gram Stain - Final
10/13/24 16:07 Blood Culture - Final
Blood/Venous S aureus-Methicillin Sensitive
Gram Stain - Final
10/13/24 18:35 Urine Culture - Final
Urine NO GROWTH
10/13/24 17:09 Influenza Types A & B (DAHLIA) - Final
Nasal Swab Negative for Influenza A & B, NAAT
Negative results must be combined with clinical observations
and patient history.
Nucleic Acid Amplification test (NAAT)performed on the
[employer] platform.
10/25/24 CXR: Resolving acute interstitial and alveolar edema.
10/19/24 CXR: Redemonstration of low lung volumes with diffusely increased interstitial and patchy alveolar opacities bilaterally. Alveolar consolidation within the lung bases has improved. No significant pleural effusion or pneumothorax.
10/16/24 CXR: There are new patchy airspace opacities throughout the right lung which likely represent multifocal pneumonia, less likely asymmetric edema
10/13/24 CXR: No acute cardiopulmonary process.
10/07/24 DONNELL: Adjacent or possibly arising from the ring near the posterior leaflet, there is a mobile echogenic mass (0.74cm x 1.23cm). No signficant regurgitation. Mitral valve gradient pk/mean 12/5mmHg. Compared to the Intraop DONNELL report from
08/10/24, the finding associated with the mitral valve reported is in similar location. Measurements differ a bit (0.7x0.6cm on the prior)
--- NOTE | 2024-10-25 10:20 | W.PN.CD ---
Today's Communication / Plan
-
Replete K+
Right heart cath today
Echo today
Critically ill
Impression / Plan
-
64 y/o female with PSVT, HTN and BRCA on chemotherapy admitted in July 2024 with complicated MSSA sepsis/bacteremia related to port tip and [place] mitral valve endocarditis s/p radical mitral valve repair (Brian, 08/10/24) subsequently complicated by
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 Presents with staph aureus bacteremia and concern for MV vegetation, hypoxic respiratory, and mixed septic cardiogenic shock. Now extubated with improving shock and
negative cultures over 48 hours on abx.
Biostatistics Teacher: Espinoza
Respiratory insufficiency/respiratory failure.
- Requiring more respiratory support
- Volume status uncertain
- ARDS vs Heart failure
Anemia
- W/u negative for hemolysis, no evidence of GI bleed
- Monitor and support wiht PRN transfusions
Recurrent complicated MSSA bacteremia, strongly suspect infection of the MV and the MV repair material
- Reoperation of the MV at this acute time with a 50% operative mortality and cultures have cleared and the repair on echo is holding up => no surgery. Agree with CT Surgery
- IV ATBs planned for 6 weeks and CHRONIC INDEFINITE SUPPRESSIVE ATBS to follow
RV dysfunction likely multifactorial,. the improved PASP and and tricuspid regurgitation
- Follow with serial echo
.
Tricuspid regurgitation was severe on first echo this admission but then follow-up was reported to be moderate
Heart failure (HFpEF)
- Weights are down 6 kg compared to when patient had right heart cath on 10/18 and wedge pressure was elevated at 34.
- Will reassess with RHC
Paroxysmal atrial fibrillation/typical flutter
- Rate: was 2:1 flutter for several days =>broke to NSR w/o bradycardia this AM 10/22/2024 at 1250 hrs, I good sign that she is improving
- Rhythm: Has been paroxysmal, currently in sinus continue to monitor.
- Anticoagulation: Back on Eliquis
JAMES, resolved
Subjective: Tenuous respiratory status on BiPap
Physical Exam
Vital Signs/Labs
Vital Signs
Temp Pulse Resp BP Pulse Ox
97.1 F 84 30 90/65 91
10/25/24 07:26 10/25/24 06:00 10/25/24 06:00 10/25/24 06:00 10/25/24 09:56
10/24/24 10/25/24 10/26/24
06:59 06:59 06:59
Actual Weight 72.1 kg 72.235 kg
10/25/24 05:07
10/25/24 05:07
PT 32.5 Sec (11.4-14.6) H 10/18/24 21:01
INR 3.18 10/18/24 21:01
APTT 97.4 Sec (23.4-35.0) H 10/21/24 04:21
Magnesium 2.0 mg/dl (1.6-2.3) 10/25/24 05:07
Triglycerides 191 mg/dl (10-149) H 10/20/24 05:11
10/18/24
11:13
Owm-[id number]-Tqzhzldhbse Pept 80117
Physical Exam
Constitutional: Distress (mild = mod resp distress)
Cardiovascular: Rhythm & rate is regular and Pedal edema is absent
Respiratory: Respiratory effort normal and Rhonchi Present
GI: Soft, Distention absent and Non tender
Neuro/Psych: AO x 3
Data Reviewed
-
Date of Service: October 25, 2024
[2024-10-25] MEDS: KCL 160 MEQ IV (10:40)
[2024-10-25] MEDS: FLUSH (NSS) 1 FLUSH IV (10:42)
[2024-10-25] MEDS: LASIX 40 MG PO (10:43)
[2024-10-25] MEDS: KCL 40 MEQ PO (10:43)
[2024-10-25] MEDS: ELIQUIS 5 MG PO (10:44)
--- NOTE | 2024-10-25 11:45 | PTCARENOTE ---
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
--- NOTE | 2024-10-25 12:31 | W.PN.INTV ---
Today's Communication / Plan
Recommendations
Transfer to ICU
BiPAP, high flow, noninvasive elation and intubate if needed
Diuresis as tolerated
Echocardiogram pending
Assessment
-
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
chemotherapy. Patient had Mediport removed and mitral valve repair performed by Dr. Brian in 07/2024. Patient was treated with IV antibiotic for endocarditis. 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
related to endocarditis and had been on anticoagulation. This admission, unfortunately patient presented again with acute renal failure along with Staph aureus bacteremia, methicillin sensitive with concern for mitral valve endocarditis. DONNELL and
echocardiogram reviewed suggestive of mitral valve vegetation with clinical concern for infected mitral valve. Patient had been on broad-spectrum antibiotics. Over the last 24 to 48 hours, patient has had increasing oxygen requirement with some
dyspnea, x-ray concerning for atypical pneumonia versus pulmonary edema. She had been on mid flow and subsequently nonrebreather was applied earlier this morning. 10/18, patient noted to have worsening shortness of breath with increasing oxygen
requirement and increasing work of breathing. Hogshead Opener consult was placed emergently and on patient examination, respiratory distress was noted. Stat chest x-ray was suggestive of worsening pulmonary opacities. Patient was emergently intubated
and placed on mechanical ventilation. Also noted to have mild hypotension requiring low-dose Levophed infusion.
Acute hypoxic respiratory failure with respiratory distress (intubated 10/18-extubated 10/20/24)
Shock, cardiogenic shock.
Pulmonary edema
MSSA bacteremia with mitral valve endocarditis, relapsed
JAMES
Leukocytosis
Hyponatremia, improved
Other medical diagnosis:
Paroxysmal atrial flutter/fibrillation/SVT
Mild mitral regurgitation
History of breast cancer, had been on adjuvant chemotherapy, last received 07/2024
Hypothyroidism
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
Normocytic anemia
Anxiety
Essential (primary) hypertension
Hypercholesteremia
Obesity
Plan
Respiratory distress is increased significantly and now on BiPAP potentially requiring intubation and transferred to ICU
Acute hypoxic respiratory failure with respiratory distress (intubated 10/18-extubated 10/20/24)
Supplemental oxygen as needed-high flow if needed
Currently on BiPAP with high FiO2
Noninvasive ventilation if needed
She would want to be intubated again if she were to decompensate
Intubated mechanically ventilated if needed
Nebulizers as needed-currently not bronchospastic
Aspiration precaution
Incentive spirometry
Chest x-ray 10/25/2024-resolving interstitial edema
Diuresis as tolerated
Monitor renal function, electrolytes, intake/output, lower extremity edema and weight
Replace electrolytes as needed
Cardiology following-correspondence reviewed-weight down 6 kg compared to right heart catheterization 10/18/2024 when the wedge was 34-repeat right heart cath
Right heart catheterization 10/25/2024-reportedly significantly increased pulmonary artery occlusion pressures
Echocardiogram 10/25/2024 pending
Pressors, inotropes, etc. per cardiology
Paroxysmal atrial flutter/fibrillation
Patient has been on p.o. amiodarone.
Holding metoprolol in view of hypotension
Patient on Eliquis
MSSA bacteremia with mitral valve endocarditis, relapsed.
Prior history of MSSA [place] mitral valve endocarditis (felt to be related to med-port) s/p open radical mitral valve repair pair with annuloplasty in 08/17
Infectious disease service on case, antibiotic coverage was broadened for concern of pneumonia, now transition back to cefazolin.
Blood cultures over last 48 hours without any bacterial growth
Prior history of infective endocarditis with cardiac embolic CVA with left side vision loss.
JAMES on admission-resolved
Monitor hemoglobin, platelets and coagulopathy
Transfuse as needed
Monitor blood sugar
Insulin supplementation as needed
DVT prophylaxis-on Eliquis
Nutrition
Early mobilization
Critical care statement: A total of 50 minutes of critical care time was provided for this patient today. This includes management of unstable vital signs, evaluation of the patient at bedside, reviewing the patient�s pertinent medical records
including radiographs, respiratory failure management, microbiology, laboratory evaluations, and��discussion with primary team, consultants, pharmacy, nutrition, physical therapy, case management, charge nurse, critical care nursing, and respiratory
therapy.
Data:
RHC 10/19/2024: 1. Severely elevated biventricular filling pressures, severe pre and postcapillary pulmonary hypertension, and reduced cardiac output with normal SVR on norepinephrine at 6.
2. Lavell of 0.79 suggesting severe RV dysfunction.
PA pressure 64/42, mean 51. Pulmonary capillary wedge pressure of 34. PVR 4.7. RA pressure 28 mm.
CXR 09/2024: Diffuse increased interstitial opacity with some small areas of confluent airspace opacity, probably interstitial and alveolar edema. Minimal bilateral effusions.
DONNELL 09/2024: 1. Normal left ventricular size, wall thickness and systolic function. No regional wall motion abnormalities are seen. 2. Ejection fraction is 55-60% by visual assessment.
3. Adjacent or possibly arising from the ring near the posterior leaflet, there is a mobile echogenic mass (0.74cm x 1.23cm). No significant regurgitation. Mitral valve gradient pk/mean 12/5mmHg.
4. Compared to the Intraop DONNELL report from 08/10/24, the finding associated with the mitral valve reported is in similar location. Measurements differ a bit (0.7x0.6cm on the prior), but I cannot visualize for complete comparison.
Subjective Dataa
Subjective Data
Date of Service:
Date of Service: October 25, 2024
Chief Complaint: Hogshead Opener Follow Up and Pulmonary Follow Up
Subjective:
Patient went to right heart catheterization and then came to the ICU, patient is a BiPAP on, complains of some shortness of breath but no chest pain, pleurisy, chest congestion, productive cough, abdominal pain, focal weakness or increased swelling
Review of Systems
General: Other (Per HPI)
Objective Data
Data Reviewed
Vital Signs / I&O / Oxygen:
Vital Signs
Temp Pulse Resp BP Pulse Ox
97.1 F 94 32 100/62 90
10/25/24 07:26 10/25/24 11:00 10/25/24 11:00 10/25/24 10:00 10/25/24 11:00
Intake and Output
10/24/24 10/25/24 10/26/24
06:59 06:59 06:59
Intake Total 1000 / 1000 500 / 500 150 / 150
Output Total 2700 / 2700 1200 / 1200 750 / 750
Balance -1700 / -1700 -700 / -700 -600 / -600
SaO2 [CPAP/PSV] 99
SaO2 [A/C] 98
SaO2 90
Nasal Cannula flow liters per 50
minute
Physical Exam
General: Respiratory Distress ( mild), Comfortable and Other (NAD)
HEENT: Normocephalic, Anicteric and Moist Mucous Membranes
Cardiovascular: S1-S2 (Heart rate better) and Regular Rhythm
Respiratory: Wheeze (n), Crackles (Bibasilar), Rhonchi (n), Non-Labored Respirations, Accessory Resp Muscle Use (n) and Stridor
GI: Soft, Non Distended and Non Tender
Neurology: Awake, Alert, Oriented and No Motor Deficits
Skin: Warm, Good Color, Cyanosis (n), Jaundice (n) and Rash (n)
Labs/Micro/Reports
Lab Data
10/25/24 05:07
10/25/24 05:07
Microbiology
10/20/24 05:11 Blood/Venous Blood Culture - Final
No Growth - Final Report
10/21/24 04:37 Blood/Venous Blood Culture - Preliminary
No Growth in 4 days- Final report to follow
10/19/24 03:41 Blood/Venous Blood Culture - Final
No Growth - Final Report
10/22/24 18:12 Feces/Stool C. difficile GDH Antigen & Toxins - Final
Negative for toxigenic C.difficile
10/18/24 04:44 Blood/Venous Blood Culture - Final
No Growth - Final Report
--- NOTE | 2024-10-25 13:38 | W.PN.INTV ---
Today's Communication / Plan
Recommendations
Plan reviewed with attending.
Assessment
-
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
chemotherapy. Patient had Mediport removed and mitral valve repair performed by Dr. Brian in 07/2024. Patient was treated with IV antibiotic for endocarditis. 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
related to endocarditis and had been on anticoagulation. This admission, unfortunately patient presented again with acute renal failure along with Staph aureus bacteremia, methicillin sensitive with concern for mitral valve endocarditis. DONNELL and
echocardiogram reviewed suggestive of mitral valve vegetation with clinical concern for infected mitral valve. Patient had been on broad-spectrum antibiotics. 10/18, patient noted to have worsening shortness of breath with increasing oxygen
requirement and increasing work of breathing. Patient was emergently intubated and placed on mechanical ventilation and put on low-dose Levophed infusion.
Over the last 24, patient went down for a RHC and arrived back to the floor with has had increasing oxygen requirement with some dyspnea on BIPAP currently. Worsening leukocytosis and oxygen needs. Monitor respiratory status. Will intubate if
necessary.
Acute hypoxic respiratory failure with respiratory distress (intubated 10/18-extubated 10/20)
Shock, cardiogenic shock.
Pulmonary edema
MSSA bacteremia with mitral valve endocarditis, relapsed
JAMES
Leukocytosis
Hyponatremia, improved
Other medical diagnosis
Paroxysmal atrial flutter/fibrillation/SVT
Mild mitral regurgitation
History of breast cancer, had been on adjuvant chemotherapy, last received 07/2024
Hypothyroidism
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
Normocytic anemia
Anxiety
Essential (primary) hypertension
Hypercholesteremia
Obesity
Plan
Neuro:
Currently extubated and off sedation
Pain control PRN
Rass goal 0
Cardio:
Shock, cardiogenic shock-Pressors weaned, [place] in place. Midodrine 5mg PRN.
Echocardiogram and right heart cath showed elevated pulmonary capillary wedge pressure along with severe RV dysfunction. Last RHC 10/20, one today 10/25/24. Most recent echo demonstrating improvement in TR severity. final RHC results pending.
Pulmonary edema suspect related to underlying valvular heart disease with decompensated heart failure.
Paroxysmal atrial flutter/fibrillation-- Patient has been on p.o. amiodarone. Holding metoprolol in view of hypotension
Currently on Eliquis
Pulm:
Acute hypoxic respiratory failure with respiratory distress (intubated 10/18-extubated 10/20)
Follow-up chest x-ray improving.
Extubated to BiPAP, 10/20, Was on BIPAP nightly/PRN use. Currently on BIPAP post-procedure.
Monitor respiratory status. Continue BIPAP, high flow. Will intubate if repiratory status worsens.
GI:
Aspiration precautions
Regular diet
ID:
MSSA bacteremia with mitral valve endocarditis, relapsed.
Prior history of MSSA [place] mitral valve endocarditis (felt to be related to med-port) s/p open radical mitral valve repair pair with annuloplasty in 08/17
Infectious disease service on case, antibiotic coverage was broadened for concern of pneumonia, now transition back to cefazolin.
Blood cultures without any bacterial growth. C Diff toxin and antigen negative
Prior history of infective endocarditis with cardiac embolic CVA with left side vision loss.
WBC elevated today.
:
JAMES on admission.
Cr and BUN improved and stable.
Follow-up labs closely, keep MAP above 65
40mg Lasix BID.
Follow I/Os
Fluid balance -1L
Heme:
CBC stable, no signs of bleeding or coagulopathy.
Hgb dropped. Elevated WBC. Stable plts.
DVT prophylaxis as assessed based on risk, including mechanical SCDs. Currently on eliquis,
Can transfuse if indicated for Hb <7, plt < 10
INR 3.18
No prior h/o diabetes
Monitor accuchecks PRN/SS coverage if needed
H/o hypothyroidism, can continue on home synthroid dose
Data:
RHC 10/19/2024: 1. Severely elevated biventricular filling pressures, severe pre and postcapillary pulmonary hypertension, and reduced cardiac output with normal SVR on norepinephrine at 6.
2. Lavell of 0.79 suggesting severe RV dysfunction.
PA pressure 64/42, mean 51. Pulmonary capillary wedge pressure of 34. PVR 4.7. RA pressure 28 mm.
CXR 10/25/2024: Resolving acute interstitial and alveolar edema.
Echo 10/20/2024 SUMMARY
1. Normal left ventricular size and systolic function.
2. Mildly dilated right ventricle with mildly reduced systolic function.
3. Large, sessile echo density (3.35cm2) on the atrial side of the posterior leaflet of the mitral valve. S/p mitral valve annuloplasty ring with a mean gradient of 5mmHg.
4. Compared to the images from 10/18/2024, the tricuspid regurgitation appears moderate rather than severe on today's study. Otherwise the findings are similar.
Critical Care time -- The patient is admitted for acute critical illness for the treatment of vital organ failure and/or prevention of further life-threatening conditions. Total care includes time spent in review of history, physical exam,
medications, hemodynamic/ventilator parameters, laboratory data, imaging and discussion with house staff, pharmacy, respiratory therapy, core machine operator, and nursing.
Subjective Dataa
Subjective Data
Date of Service:
Date of Service: October 25, 2024
Chief Complaint: Trouble Clerk Follow Up and Pulmonary Follow Up
Subjective:
Pt denies worsening WOB or cough.
Objective Data
Data Reviewed
Vital Signs / I&O / Oxygen:
Vital Signs
Temp Pulse Resp BP Pulse Ox
97.0 F 94 32 100/62 90
10/25/24 11:00 10/25/24 11:00 10/25/24 11:00 10/25/24 10:00 10/25/24 11:00
Intake and Output
10/24/24 10/25/24 10/26/24
06:59 06:59 06:59
Intake Total 1000 / 1000 500 / 500 150 / 150
Output Total 2700 / 2700 1200 / 1200 750 / 750
Balance -1700 / -1700 -700 / -700 -600 / -600
SaO2 [CPAP/PSV] 99
SaO2 [A/C] 98
SaO2 90
Nasal Cannula flow liters per 50
minute
Physical Exam
General: Respiratory Distress ( mild), Comfortable and Other (NAD)
HEENT: Normocephalic, Anicteric and Moist Mucous Membranes
Cardiovascular: S1-S2 (Heart rate better) and Regular Rhythm
Respiratory: Wheeze, Crackles (Bibasilar), Rhonchi (n) and Other (BIPAP)
GI: Soft, Non Distended and Non Tender
Neurology: Awake, Alert, Oriented and No Motor Deficits
Skin: Warm and Good Color
Labs/Micro/Reports
Lab Data
10/25/24 05:07
10/25/24 05:07
Microbiology
10/20/24 05:11 Blood/Venous Blood Culture - Final
No Growth - Final Report
10/21/24 04:37 Blood/Venous Blood Culture - Preliminary
No Growth in 4 days- Final report to follow
10/19/24 03:41 Blood/Venous Blood Culture - Final
No Growth - Final Report
10/22/24 18:12 Feces/Stool C. difficile GDH Antigen & Toxins - Final
Negative for toxigenic C.difficile
10/18/24 04:44 Blood/Venous Blood Culture - Final
No Growth - Final Report
--- NOTE | 2024-10-25 13:38 | PTCARENOTE ---
Patient transferred to ICU from [employer]. Report given to Ludmila MANRIQUE. All belonging brought to new room.
[2024-10-25] MEDS: PACERONE PO (14:07)
[2024-10-25] MEDS: LASIX 40 MG IV ×2 (14:09→16:50)
--- NOTE | 2024-10-25 14:22 | CM ---
patient chart reviewed
Right heart cath today
transferred to ICU
snf referrals in [facility]
PLAN: TBD, follow hospital progression, CM to follow for dispo planning/needs
[2024-10-25] MEDS: PACERONE 400 MG PO (15:02)
--- NOTE | 2024-10-25 15:34 | CM ---
Patient is for discharge to [facility] when bed available for specialized acute care services. Ambulance transport.
[2024-10-25 16:34] LABS: Magnesium 1.7 mg/dl (1.6-2.3); Potassium 3.7 mmol/L (3.5-5.1)
--- NOTE | 2024-10-25 16:45 | PTCARENOTE ---
Pt received via bed from cardiac cardiac cath lab manager at 1245 s/p Rt heart cath. Pt received w/ Rt IJ cordis introducer/PA catheter. PA catheter confirmed at 50cm. Transduced- leveled and zero-balanced, waveforms wnl. Heme calcs completed and as documented-
results TT to Dr Doran. Order for Lasix noted and given per APR. Pt received on BiPap 15/6 w/ 15L O2 w/ POx 90-94%. Pt tachypneic w/ RR mid 30's. Pt denies SOB when questioned. At pt request, pt transitioned to Hiflow 50L/100% w/ POx dropping into
70's initially but slowly recovered to 90%. Oral care completed and pt taking sips of water and ordered Amiodarone PO w/o difficulty. After approximately 45 minutes on Hiflow, pt's POx down to 88% and respirations appeared more labored. Bipap
reapplied by Resp. Therapy w/ POx down to low 70's w/ transition improved to 90% after 15minutes. Dr Mckenzie notified of POx and order for Noninvasive ventilation received- pt's POx improved to 90% on BiPap prior to having to initiate. 1600 dose of
Lasix given per Dr Doran after confirming K=3.7. Additional K/Mag replacement given per Dr Mckenzie. Pt's and son attentive at bedside- questions answered and emotional support provided.
--- NOTE | 2024-10-25 17:00 | ITS.CL.PN ---
[employer] - Procedure Note
Procedure
Procedure Note:
CARDIAC CATHETERIZATION REPORT
Date of Procedure: 10/25/2024
Referring: Dr. Chris Doran MD
Indication: Concern for cardiogenic shock
PROCEDURE: right heart catheterization
ACCESS: 8F right antecubital vein (closure: manual hemostasis)
CATHETERS: 7F [place]
MODERATE SEDATION: 25 minutes of moderate sedation was utilized. An independent medical concierge was present to assist with and help manage the patient's level of consciousness and physiologic status.
HEMODYNAMIC DATA
SBP 116/74 (mean 80) mmHg
RA 11 mmHg
RV 50/6 (EDP 11) mmHg
PA 52/26 (mean 38) mmHg
PCWP 24 mmHg
SaO2 91.0%
SvO2 59.7%
Hb 9.8 g/dL
CO/CI 5.18/3.00 L/min/m2
SVR 1065 dsc*-5
PVR 2.7 [place] units
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
Signed: Rick Rae MD, PhD
[2024-10-25] MEDS: KCL 100 IV (17:21)
[2024-10-25] MEDS: MAGNESIUM SULFATE 50 IV (17:23)
--- NOTE | 2024-10-25 17:55 | PTCARENOTE ---
Addendum entered by Shiela Nassar RN 10/25/24 18:27:
Pt's family in possession of pt's belongings to transport.
Original Note:
Transfer report given to '[facility]' and [facility] as well as Dr Aby Sims. Daniel Amaral at bedside to transport to [facility]. Family in room. Pt w/o noted changes or new complaints prior to transfer.
--- NOTE | 2024-10-25 19:05 | W.DCSUMMARY ---
Discharge Summary
Discharge Data
Date of Admission: 10/13/24
Date of Discharge: 10/25/24
-
Pending Results: No
Discharge Plan
-
Patient Disposition: Acute [facility]
Condition: Fair
Discharge Orders:
Discharge Patient (As Directed); Ordered 10/25/24
Ordered By: Ramos Booth
Discharge Date and Time
Discharge Date/Time: 10/25/24 18:34
Print Language: THAI
== END 2024-10-25 18:34 | disposition short-term general hospital (02) | DRG 871 ==
LOC: ICU 20:35
PROVIDERS: Emergency Medicine; Hospitalist; Internal Medicine; Internal Medicine Cardiovascular Disease; Internal Medicine Critical Care Medicine; Nurse Practitioner Family; Nurse Practitioner Gerontology; Physician Assistant; Physician Assistant Medical; Radiology Diagnostic Radiology; Radiology Vascular & Interventional Radiology; Specialist; Student in an Organized Health Care Education/Training Program; ADMITTING PHYSICIAN Hospitalist; ATTENDING PHYSICIAN Internal Medicine; CONSULT PHYSICIAN Internal Medicine; CONSULT PHYSICIAN Student in an Organized Health Care Education/Training Program; CONSULT PHYSICIAN Thoracic Surgery (Cardiothoracic Vascular Surgery); EMERGENCY PHYSICIAN Emergency Medicine; FAMILY PHYSICIAN Family Medicine; OTHER PHYSICIAN Internal Medicine Infectious Disease; OTHER PHYSICIAN Internal Medicine Nephrology
PROC: 5A1945Z Respiratory Ventilation, 24-96 Consecutive Hours (ICD-10-PCS; 2024-10-18)
PROC: 03HB33Z Insertion of Infusion Device into Right Radial Artery, Percutaneous Approach (ICD-10-PCS; 2024-10-18)
PROC: 0BH17EZ Insertion of Endotracheal Airway into Trachea, Via Natural or Artificial Opening (ICD-10-PCS; 2024-10-18)
PROC: 4A023N6 Measurement of Cardiac Sampling and Pressure, Right Heart, Percutaneous Approach (ICD-10-PCS; 2024-10-18)
PROC: 02HV33Z Insertion of Infusion Device into Superior Vena Cava, Percutaneous Approach (ICD-10-PCS; 2024-10-18)
PROC: 02HQ32Z Insertion of Monitoring Device into Right Pulmonary Artery, Percutaneous Approach (ICD-10-PCS; 2024-10-19)
PROC: 5A09357 Assistance with Respiratory Ventilation, Less than 24 Consecutive Hours, Continuous Positive Airway Pressure (ICD-10-PCS; 2024-10-20)
PROC: 0DH67UZ Insertion of Feeding Device into Stomach, Via Natural or Artificial Opening (ICD-10-PCS; 2024-10-20)
PROC: 30233N1 Transfusion of Nonautologous Red Blood Cells into Peripheral Vein, Percutaneous Approach (ICD-10-PCS; 2024-10-22)
PROC: 5A0935A Assistance with Respiratory Ventilation, Less than 24 Consecutive Hours, High Flow/Velocity Cannula (ICD-10-PCS; 2024-10-23)
DX: A41.01 Sepsis due to Methicillin susceptible Staphylococcus aureus (principal); I33.0 Acute and subacute infective endocarditis; R65.21 Severe sepsis with septic shock; J96.01 Acute respiratory failure with hypoxia; R57.0 Cardiogenic shock; J18.9 Pneumonia, unspecified organism; E87.20 Acidosis, unspecified; N17.9 Acute kidney failure, unspecified; E22.2 Syndrome of inappropriate secretion of antidiuretic hormone; I47.10 Supraventricular tachycardia, unspecified; I69.351 Hemiplegia and hemiparesis following cerebral infarction affecting right dominant side; I48.92 Unspecified atrial flutter; I50.30 Unspecified diastolic (congestive) heart failure; E87.6 Hypokalemia; R33.9 Retention of urine, unspecified; E86.1 Hypovolemia; E03.9 Hypothyroidism, unspecified; H54.62 Unqualified visual loss, left eye, normal vision right eye; F41.9 Anxiety disorder, unspecified; I27.20 Pulmonary hypertension, unspecified; D64.89 Other specified anemias; R19.7 Diarrhea, unspecified; I07.1 Rheumatic tricuspid insufficiency; I48.0 Paroxysmal atrial fibrillation; D69.6 Thrombocytopenia, unspecified; E66.9 Obesity, unspecified; E78.00 Pure hypercholesterolemia, unspecified; I11.0 Hypertensive heart disease with heart failure; I69.328 Other speech and language deficits following cerebral infarction; Z68.29 Body mass index [BMI] 29.0-29.9, adult; Z85.3 Personal history of malignant neoplasm of breast; Z11.52 Encounter for screening for COVID-19; Z79.890 Hormone replacement therapy; Z90.49 Acquired absence of other specified parts of digestive tract; Z92.21 Personal history of antineoplastic chemotherapy; Z90.13 Acquired absence of bilateral breasts and nipples; Z88.1 Allergy status to other antibiotic agents; Z91.030 Bee allergy status; Z88.0 Allergy status to penicillin; Z91.013 Allergy to seafood; Z88.2 Allergy status to sulfonamides; Z88.8 Allergy status to other drugs, medicaments and biological substances; Z91.018 Allergy to other foods; Z87.891 Personal history of nicotine dependence; Z90.710 Acquired absence of both cervix and uterus; Z79.01 Long term (current) use of anticoagulants; Z95.2 Presence of prosthetic heart valve; Z86.19 Personal history of other infectious and parasitic diseases
CPT/HCPCS: 36600; 71045; 80048; 80053; 80076; 80202; 81003; 81015; 82248; 82330; 82805; 82810; 82962; 83010; 83036; 83605; 83615; 83735; 83880; 84100; 84132; 84443; 84478; 85014; 85018; 85025; 85027; 85045; 85610; 85730; 86850; 86900; 86901; 86920; 87040; 87070; 87086; 87150; 87186; 87205; 87324; 87449; 87502; 87811; 92526; 92610; 93005; 93308; 93321; 93325; 93451; 94002; 94003; 94640; 94660; 96361; 96365; 96375; 97110; 97163; 97167; 97530; 97535; 99152; 99153; 99291; C1761; C1769; C1892; C1894; P9016